=== PATIENT | male | born 1950 | race Two or more races ===

== ENCOUNTER 2019-02-07 23:03 | Inpatient (IN) | payer SELFPAY ==
[~2019-02-07] VITALS: Ht 165.1 cm; Wt 64.4 kg
[2019-02-07 23:05] VITALS: BP 106/73
--- NOTE | 2019-02-07 23:05 | NUR ---
ED Nurse Note: pt came manny hernandez 27. pt was found in the [place] by his friends who call 911. pt is alert but nonverbal unable to obtain pmh. pt is on 3 L nasal cannula. ermd at bedside. pt placed on monitor EKG done.
[2019-02-07] MEDS ORDERED: Sodium Chloride 1,900 ML IVLG ONE (23:30)
[2019-02-07] MEDS ORDERED: Acetaminophen 500mg (ES) tab ORAL ONE (23:30)
[2019-02-07 23:40] LABS: HEMATOCRIT 37.5 % (42.0-52.0); HEMOGLOBIN 12.1 G/DL (14.2-18.0); MEAN CORPUSCULAR VOLUME 97 FL (80-99); PLATELET COUNT 307 K/UL (150-450); RED BLOOD COUNT 3.87 M/UL (4.70-6.10); RED CELL DISTRIBUTION WIDTH 13.8 % (11.6-14.8)
[2019-02-07 23:45] LABS: INR 1.3 (0.9-1.1)
[2019-02-07 23:46] LABS: WHITE BLOOD COUNT 34.1 K/UL (4.8-10.8)
[2019-02-07 23:56] LABS: ALANINE AMINOTRANSFERASE 22 U/L (12-78); ALBUMIN 2.8 G/DL (3.4-5.0); ALBUMIN/GLOBULIN RATIO 0.8 (1.0-2.7); ALKALINE PHOSPHATASE 58 U/L (46-116); ANION GAP 25 mmol/L (5-15); ASPARTATE AMINO TRANSFERASE 22 U/L (15-37); BILIRUBIN,TOTAL 0.3 MG/DL (0.2-1.0); BLOOD UREA NITROGEN 33 mg/dL (7-18); CARBON DIOXIDE 10 MMOL/L (21-32); CHLORIDE 103 MMOL/L (98-107); CKMB 0.8 NG/ML (0.0-3.6); CREATINE KINASE 91 U/L (26-308); CREATININE 1.9 MG/DL (0.55-1.30); POTASSIUM 4.8 MMOL/L (3.5-5.1); SODIUM 138 MMOL/L (136-145)
[2019-02-08] VITALS (33 sets, daily range): BP systolic 102–199; BP diastolic 55–115
--- NOTE | 2019-02-08 00:02 | Emergency Room Report ---
History of Present Illness General Chief Complaint: Generalized Weakness Source: Patient, Friend, EMS Present Illness HPI This is a 69-year-old male who is Ivorian-speaking. He presents with chief complaint of generalized weakness. History is extremely limited in this patient because he is very confused. He was at a bus stop when a friend called 911. According to EMS, but knows him in someone who hang around that area. Supposedly, he is not homeless. He has no idea in his wallet. The chief complaint is generalized weakness. Patient denies any trauma. Does not say anything hurts. Denies any shortness of breath. Allergies: Coded Allergies: No Known Allergies (Unverified , 02/07/19) Patient History Past Medical History: see triage record, old chart reviewed, unable to obtain Past Surgical History: unable to obtain Pertinent Family History: unable to obtain Immunizations: other Reviewed Nursing Documentation: PMH: Agreed; PSxH: Agreed Nursing Documentation-PMH Past Medical History: Deferred Review of Systems Constitutional: Reports: weakness All Other Systems: limited - Secondary to patient's condition Physical Exam Vital Signs Date Time Temp Pulse Resp B/P (MAP) Pulse Ox O2 Delivery O2 Flow Rate FiO2 02/07/19 23:03 98.2 140 20 106/73 (84) 94 Nasal Cannula 2.0 Vitals with low-grade fever, tachycardia and hypoxia. Repeat temp is 100.3 Sp02 EP Interpretation: abnormal General Appearance: mild distress, cachetic Head: normocephalic, atraumatic Eyes: bilateral eye PERRL, bilateral eye EOMI ENT: hearing grossly normal, normal pharynx, dry mucus membranes Neck: full range of motion, supple, no meningismus Respiratory: chest non-tender, lungs clear, normal breath sounds Cardiovascular #1: regular rate, rhythm, no murmur, tachycardia Gastrointestinal: normal bowel sounds, non tender, no mass, no organomegaly, no bruit, non-distended Musculoskeletal: back normal, normal range of motion Neurologic: grossly normal, other - Confused Psychiatric: mood/affect normal Procedures Critical Care Time Critical Care Time Critical care is mandated in this patient who presented with DKA and possible sepsis. Patient require my urgent intervention to attenuate the risks of metabolic collapse which may lead to cardiovascular collapse and . Critical care time is 35 minutes excluding any reportable procedure. Critical care time included evaluation, multiple reevaluation, looking at old charts, interpreting laboratory and diagnostic data, discussing case with patient and family and consultants, and charting. Medical Decision Making Diagnostic Impression: Primary Impression: DKA (diabetic ketoacidoses) Qualified Codes: E13.10 - Other specified diabetes mellitus with ketoacidosis without coma Additional Impressions: Sepsis Qualified Codes: A41.9 - Sepsis, unspecified organism; R65.20 - Severe sepsis without septic shock; N17.9 - Acute kidney failure, unspecified Lactic acidosis ARF (acute renal failure) Qualified Codes: N17.9 - Acute kidney failure, unspecified Dehydration Sinus tachycardia ER Course Patient with generalized weakness but has tachycardia. He appeared to be very dehydrated. May have infectious cause. He has several phone numbers in his wallet. [employer] called those numbers, only 1 answered. The person that he does not know this patient. He only has a few dollars in his wallet. Otherwise no ID or insurance card. Patient presents with generalized weakness. Labs indicate DKA. He has a severe lactic acidosis. No evidence of any obvious infection. Lungs are clear. No abdominal pain. He is more awake and alert now. Able response. I suspect some underlying Alzheimer. He has no meningismus sign. I see no evidence of meningitis on clinical exam. After 3 L of fluids, he is more responsive. Does give an address so that he lives with his friends. No other family member in the [facility]. His family is improved. I started him on insulin drip. I also put him on D5 half-normal saline with potassium maintenance. His tachycardia has been persistent in the 130s. Blood pressures been stable. Thyroid function tested. Contacted Dr. Gee for admission to ICU. Patient anion gap closed. I will turn off the insulin drip and will continue with IV fluids. I will downgrade him to stepdown. EKG Diagnostic Results Rate: tachycardiac Rhythm: NSR ST Segments: other - NSST changes Rhythm Strip Diag. Results EP Interpretation: yes Rate: 130 Rhythm: NSR, no PVC's Chest X-Ray Diagnostic Results Chest X-Ray Diagnostic Results : Chest X-Ray Ordered: Yes # of Views/Limited/Complete: 1 View Indication: Shortness of Breath EP Interpretation: Yes Interpretation: no consolidation, no effusion, no pneumothorax, no acute cardiopulmonary disease, other - copd Impression: No acute disease Electronically Signed by: Sebastien Flaherty MD Last Vital Signs Date Time Temp Pulse Resp B/P (MAP) Pulse Ox O2 Delivery O2 Flow Rate FiO2 02/07/19 23:05 100.3 147 33 106/73 94 Nasal Cannula 3.0 Referrals: NOT CHOSEN IPA/,REFERRING (PCP) Sebastien Flaherty MD Feb 08, 2019 00:02
[2019-02-08 00:09] LABS: APPEARANCE,URINE CLEAR; BILIRUBIN, URINE NEGATIVE (NEGATIVE); GLUCOSE, URINE (UA) 1+ (NEGATIVE); KETONES,URINE 1+ (NEGATIVE); LEUKOCYTE ESTERASE ,URINE 1+ (NEGATIVE); NITRITE,URINE NEGATIVE (NEGATIVE); PH,URINE 5 (4.5-8.0); PROTEIN,URINE 3+ (NEGATIVE); UROBILINOGEN,URINE 1 MG/DL (0.0-1.0)
--- NOTE | 2019-02-08 00:17 | NUR ---
ED Nurse Note: pt went to ct
[2019-02-08 00:20] LABS: COLOR,URINE YELLOW
[2019-02-08] MEDS ORDERED: D5 1/2NS w/KCl 20mEq 1,000 ML IV SCH (00:30)
[2019-02-08] MEDS ORDERED: Cefepime HCl 1 GM in D5W 55 ML IVPB ONE (00:30)
[2019-02-08] MEDS ORDERED: Insulin Human Regular 100units/ml 3ml ONE (00:32)
--- NOTE | 2019-02-08 00:48 | Diagnostic Imaging Report ---
Indications: Altered mental status Technique: Spiral acquisitions obtained through the brain. Angled axial and coronal 5 x 5 mm slices were reconstructed. Total dose length product 1369.05 mGycm. CTDI vol(s) 70.38 mGy. Dose reduction achieved using automated exposure control Comparison: None. Findings: There is age-related enlargement of the ventricles and extra axial CSF spaces. There is periventricular deep white matter low-attenuation consistent with chronic microvascular ischemic change. There is a sizable old lacunar infarct in the left basal ganglia, as well as smaller lacunar infarcts in the basal ganglia bilaterally. No acute intracranial hemorrhage or edema. No mass effect nor midline shift. There is questionably an area of minimal scalp contusion in the right parieto-occipital scalp. The calvarium is intact. The included sinuses are clear. The mastoids are clear. The orbits are unremarkable Impression: Chronic and age-related changes Old bilateral basal ganglia infarcts Negative for acute intracranial bleed or mass effect This agrees with the preliminary interpretation provided overnight by [facility]. The CT scanner at [facility] is accredited by the [employer] and the scans are performed using protocols designed to limit radiation exposure to as low as reasonably achievable to attain images of sufficient resolution adequate for diagnostic evaluation.
--- NOTE | 2019-02-08 01:28 | NUR ---
ED Nurse Note: In consideration of the way the patient was found, [employer] was called, quenching machine operator [phone] states no missing person from the incident scene, or his address.
[2019-02-08 01:29] LABS: ANION GAP 18 mmol/L (5-15); BLOOD UREA NITROGEN 35 mg/dL (7-18); CALCIUM 8.4 MG/DL (8.5-10.1); CARBON DIOXIDE 14 MMOL/L (21-32); CHLORIDE 105 MMOL/L (98-107); CREATININE 1.7 MG/DL (0.55-1.30); POTASSIUM 4.8 MMOL/L (3.5-5.1); SODIUM 137 MMOL/L (136-145)
--- NOTE | 2019-02-08 01:30 | NUR ---
ED Nurse Note: pt shows increased signs of alertness aox3. pt is able to urinate on his own.
[2019-02-08] MEDS ORDERED: NKM (02:05)
--- NOTE | 2019-02-08 02:15 | NUR ---
ED Nurse Note: pt is in bed resting, tolerating medications well. latest bs is 238.
[2019-02-08] MEDS ORDERED: dilTIAZem HCl 25mg/5ml Inj IVP ONE (02:30)
--- NOTE | 2019-02-08 03:00 | NUR ---
ED Nurse Note: MEDHAT REPEAT LABS; SENT DOWN TO LAB.
[2019-02-08 03:15] LABS: HEMATOCRIT 23.6 % (42.0-52.0); HEMOGLOBIN 8.1 G/DL (14.2-18.0); MEAN CORPUSCULAR VOLUME 92 FL (80-99); PLATELET COUNT 166 K/UL (150-450); RED BLOOD COUNT 2.56 M/UL (4.70-6.10); RED CELL DISTRIBUTION WIDTH 13.1 % (11.6-14.8); WHITE BLOOD COUNT 21.5 K/UL (4.8-10.8)
[2019-02-08 03:23] LABS: ANION GAP 11 mmol/L (5-15); BLOOD UREA NITROGEN 30 mg/dL (7-18); CALCIUM 6.2 MG/DL (8.5-10.1); CARBON DIOXIDE 16 MMOL/L (21-32); CHLORIDE 113 MMOL/L (98-107); CREATININE 1.1 MG/DL (0.55-1.30); POTASSIUM 4.7 MMOL/L (3.5-5.1); SODIUM 140 MMOL/L (136-145)
--- NOTE | 2019-02-08 03:40 | NUR ---
ED Nurse Note: pt defected melena aprrox 3 g on bed. primary and crn cleaned pt, provided new gown, linens.
--- NOTE | 2019-02-08 03:41 | NUR ---
ED Nurse Note: per ermd stop insulin and d5 drip
[2019-02-08] MEDS ORDERED: Pantoprazole Inj IVP ONE (03:45)
--- NOTE | 2019-02-08 03:50 | NUR ---
ED Nurse Note: CONTACTED NURSING PARKING SUPERVISOR FOR RECTAL TUBE PER ERMD. PER NURSING PARKING SUPERVISOR "NO RECTAL TUBE IN HOUSE".
[2019-02-08] MEDS ORDERED: Octreotide Acetate 500 MCG in Sodium Chloride 499 ML IV SCH ×2 (04:00→12:00)
[2019-02-08] MEDS ORDERED: SandoSTATIN 100mcg Inj IVP ONE (04:00)
[2019-02-08] MEDS ORDERED: SandoSTATIN 50mcg Inj IVP ONE (04:00)
--- NOTE | 2019-02-08 04:40 | NUR ---
ED Nurse Note: INFORMED ERMD OF PT CONSISTENT TACHYCARDIDA. ERMD AWARE. AWAITING FUTHER ORDERS. WILL CONTINUE TO MONITOR PT.
--- NOTE | 2019-02-08 05:30 | NUR ---
ED Nurse Note: PT IN BED RESTING, TOLERATING BLOOD TRANSFUSION WELL. PT URINATED 20 ML IN URINAL. PT WAS CLEANED D/T MELENA, GOWN CHANGED, AND PLACED NEW LINENS
--- NOTE | 2019-02-08 06:05 | NUR ---
ED Nurse Note: REDNESS NOTED ON PT BUTTOCKS. TURNING AND REPOSITING PT INITIATED. PT TOLERATING WELL SHOWS NO SIGNS OF DISTRESS
[2019-02-08] MEDS ORDERED: Pantoprazole 80 MG in NS 250 ML IV ONE (06:15)
--- NOTE | 2019-02-08 07:10 | NUR ---
ED Nurse Note: NAILER OPERATOR AT BEDSIDE, PREPARING TO TRANSPORT PT FOR CT ABD. PT WAS CLEANED AND DRESSED PRIOR TO LEAVING. NEW GOWN, LINENS, CHUX PLACED.
--- NOTE | 2019-02-08 07:15 | Diagnostic Imaging Report ---
Indication: Abdominal pain and diarrhea for one week Technique: Spiral acquisitions obtained through the abdomen and pelvis. No oral contrast utilized, per emergency room physician request No IV contrast utilized, per referring physician request.. Multiplanar reconstructions were generated. Total dose length product 511.28 mGycm. CTDIvol(s) 9.91 mGy. Dose reduction achieved using automated exposure control Comparison: None Findings: There is equivocal slight wall thickening of the sigmoid colon and rectum, which is probably an artifact of under distention. There is colonic diverticulosis. No evidence of diverticulitis. The appendix is normal. Small bowel loops are diffusely gas filled, per limits of normal in caliber. No free or loculated intraperitoneal gas or fluid. There is a small sliding-type hiatal hernia noted. The remainder of the stomach and duodenum are unremarkable. There are tiny fat-containing inguinal hernias bilaterally. Lack of IV contrast limits assessment of the solid organs. The liver contains a granulomatous calcification in the right lobe and a 1 cm cyst in segment IVb. The gallbladder, bile ducts, pancreas, spleen, adrenals unremarkable. The left kidney demonstrates a 2 cm upper pole cyst on the left. The right kidney demonstrates a 1 cm interpolar region cyst. No renal or ureteral calculi or hydronephrosis. The bladder is mildly distended. There is mild ectasia of the bilateral ureters without evidence of downstream obstructive lesion. There is stranding of the bilateral perinephric fat. The prostate is enlarged, measures 5 cm transverse diameter. No pelvic mass or adenopathy. No retroperitoneal or mesenteric mass or adenopathy. There are bilateral posterior dependent atelectatic changes noted at the lung bases. The bones are unremarkable. Impression: Equivocal slight wall thickening of the sigmoid and rectum, probably an artifact of under distention but could indicate proctitis/colitis if real. Correlate with clinical findings No definite acute process otherwise Colonic diverticulosis. No evidence of diverticulitis Bladder distention Mild ureteral ectasia, likely related to the above Prostatomegaly Incidental findings as noted, including basilar pulmonary dependent atelectatic changes, renal and hepatic cysts, hepatic calcification, hiatal hernia, small bilateral inguinal hernias containing only fat This agrees with the preliminary interpretation provided overnight by [facility]. The CT scanner at [facility] is accredited by the [employer] and the scans are performed using protocols designed to limit radiation exposure to as low as reasonably achievable to attain images of sufficient resolution adequate for diagnostic evaluation.
--- NOTE | 2019-02-08 07:27 | NUR ---
ED Nurse Note: TELEPHONE REPORT GIVEN SUYAPA MORENO RN
--- NOTE | 2019-02-08 07:40 | NUR ---
ED Nurse Note: PT WAS SENT UP WITH BRADY RN, JOE, RN AND EN RN. PT IS AOX3. ON 3 L NASAL CANNULA PT DENIES PAIN AT THIS TIME. PT SHOWS NO ACUTE SIGNS OF DISTRESS. PT VSS. PT BED ON LOWEST POSITIONS X 2 SIDERAILS.
--- NOTE | 2019-02-08 07:55 | NUR ---
NURSE NOTES: Spoke with Dr. Conn, pt for EGD today.
--- NOTE | 2019-02-08 08:03 | NUR ---
NURSE NOTES: Received the patient from RAJI Murphy. Patient is awake, alert and orientedx4. On 3L O2 via NC. O2 sat 99%. Denies any pain or SOB. ST HR 110s-120s noted on the monitor. BP stable. Patient noted with bloody black loose stool. Patient able to use urinals, ashlee urine noted. Right AC 20G, left AC 18G and left forearm 18G intact, running sandostatin at 50ml/hr, protonix at 25ml/hr, PRBC transfusion completed. Insulin drip and IVF discontinued in ER per Katherine. All belongings checked. Bed in lowest position, locked, side rails upx2. Call light within reach. will continue to monitor.
--- NOTE | 2019-02-08 08:05 | NUR ---
NURSE NOTES: PRBC transfusion completed, patient received total of 4 PRBCs. No adverse reaction noted.
--- NOTE | 2019-02-08 08:05 | NUR ---
NURSE NOTES: Consent for EGD with biopsy obtained from the patient, filed in chart. Patient is awake, alert and oriented x4. Patient noted with large bloody, black stool. VSS, afebrile.
--- NOTE | 2019-02-08 08:10 | NUR ---
NURSE NOTES: Called Dr. Gee for admitting orders, awaiting for call back.
[2019-02-08] MEDS ORDERED: Pantoprazole Inj IVP SCH (09:00)
[2019-02-08 09:09] LABS: HEMATOCRIT 47.3 % (42.0-52.0); MEAN CORPUSCULAR VOLUME 90 FL (80-99); PLATELET COUNT 166 K/UL (150-450); RED BLOOD COUNT 5.27 M/UL (4.70-6.10); RED CELL DISTRIBUTION WIDTH 12.6 % (11.6-14.8); WHITE BLOOD COUNT 20.5 K/UL (4.8-10.8)
--- NOTE | 2019-02-08 09:13 | NUR ---
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
[2019-02-08 09:14] LABS: ANION GAP 8 mmol/L (5-15); BLOOD UREA NITROGEN 23 mg/dL (7-18); CALCIUM 6.8 MG/DL (8.5-10.1); CARBON DIOXIDE 20 MMOL/L (21-32); CHLORIDE 110 MMOL/L (98-107); CREATININE 0.9 MG/DL (0.55-1.30); POTASSIUM 4.7 MMOL/L (3.5-5.1); SODIUM 138 MMOL/L (136-145)
[2019-02-08 09:16] LABS: CHOLESTEROL 86 MG/DL (< 200); HDL CHOLESTEROL 35 MG/DL (40-60); TRIGLYCERIDES 65 MG/DL (30-150)
[2019-02-08 09:27] LABS: ALANINE AMINOTRANSFERASE 95 U/L (12-78); ALBUMIN 2.8 G/DL (3.4-5.0); ALBUMIN/GLOBULIN RATIO 0.9 (1.0-2.7); ALKALINE PHOSPHATASE 43 U/L (46-116); ASPARTATE AMINO TRANSFERASE 376 U/L (15-37); BILIRUBIN,DIRECT 0.3 MG/DL (0.0-0.3); BILIRUBIN,TOTAL 1.6 MG/DL (0.2-1.0); PHOSPHORUS 3.5 MG/DL (2.5-4.9)
[2019-02-08 09:39] LABS: FERRITIN 423 NG/ML (8-388)
--- NOTE | 2019-02-08 09:42 | GI Initial Consult Note ---
History of Present Illness General Date patient seen: Feb 08, 2019 Time patient seen: 09:34 Reason for Hospitalization: Generalized Weakness Referring physician: JANET LOFTON Reason for Consultation: GI BLEED Present Illness HPI This is a 69-year-old male who is Turkish-speaking. He presents with chief complaint of generalized weakness. History is extremely limited in this patient because he is very confused. He was at a bus stop when a friend called 911. According to EMS, but knows him in someone who hang around that area. Supposedly, he is not homeless. He has no idea in his wallet. The chief complaint is generalized weakness. Patient denies any trauma. Does not say anything hurts. Denies any shortness of breath. GI consulted for GI bleed. Pat seen, awake and alert NAD has active GI bleed noted with melena and hematochezia. No hematemesis or coffee grounds noted. The patient was admitted for DKA, noted with melanotic stool with drop in Hgb. He presents today with AST 376, AST 75. In addition, the patient was noted to have CT imaging which showed some concentric thickening of the sigmoid colon as well as rectum. This may be the source for the patient's metabolic acidosis and bleeding. Unknown history of endoscopy or colonoscopy. Home Meds Reported Medications No Known Medications* (NKM - No Known Medications*) ., 0 ., 0 Refills 02/08/19 Med list reviewed/reconciled: Yes Allergies: Coded Allergies: No Known Allergies (Unverified , 02/07/19) Patient History Limited by: language barrier, medical condition History Provided By: Medical Record PMH Narrative Past Medical History: see triage record, old chart reviewed, unable to obtain Past Surgical History: unable to obtain Pertinent Family History: unable to obtain Immunizations: other Reviewed Nursing Documentation: PMH: Agreed; PSxH: Agreed Nursing Documentation-PMH Past Medical History: Deferred Social History: Reports: alcohol use Review of Systems All Other Systems: negative except mentioned in HPI Physical Exam Vital Signs Date Time Temp Pulse Resp B/P (MAP) Pulse Ox O2 Delivery O2 Flow Rate FiO2 02/07/19 23:03 98.2 140 20 106/73 (84) 94 Nasal Cannula 2.0 Sp02 EP Interpretation: reviewed, normal Labs Laboratory Tests Test 02/07/19 23:17 02/07/19 23:43 02/08/19 00:03 02/08/19 00:43 White Blood Count 34.1 K/UL (4.8-10.8) *H Red Blood Count 3.87 M/UL (4.70-6.10) L Hemoglobin 12.1 G/DL (14.2-18.0) L Hematocrit 37.5 % (42.0-52.0) L Mean Corpuscular Volume 97 FL (80-99) Mean Corpuscular Hemoglobin 31.2 PG (27.0-31.0) H Mean Corpuscular Hemoglobin Concent 32.2 G/DL (32.0-36.0) Red Cell Distribution Width 13.8 % (11.6-14.8) Platelet Count 307 K/UL (150-450) Mean Platelet Volume 5.2 FL (6.5-10.1) L Neutrophils (%) (Auto) % (45.0-75.0) Lymphocytes (%) (Auto) % (20.0-45.0) Monocytes (%) (Auto) % (1.0-10.0) Eosinophils (%) (Auto) % (0.0-3.0) Basophils (%) (Auto) % (0.0-2.0) Differential Total Cells Counted 100 Neutrophils % (Manual) 52 % (45-75) Lymphocytes % (Manual) 41 % (20-45) Monocytes % (Manual) 3 % (1-10) Eosinophils % (Manual) 0 % (0-3) Basophils % (Manual) 0 % (0-2) Band Neutrophils 4 % (0-8) Platelet Estimate Adequate Platelet Morphology Normal Prothrombin Time 14.0 SEC (9.30-11.50) H Prothromb Time International Ratio 1.3 (0.9-1.1) H Activated Partial Thromboplast Time 32 SEC (23-33) Sodium Level 138 MMOL/L (136-145) Potassium Level 4.8 MMOL/L (3.5-5.1) Chloride Level 103 MMOL/L (98-107) Carbon Dioxide Level 10 MMOL/L (21-32) L Anion Gap 25 mmol/L (5-15) H Blood Urea Nitrogen 33 mg/dL (7-18) H Creatinine 1.9 MG/DL (0.55-1.30) H Estimat Glomerular Filtration Rate mL/min (>60) Glucose Level 405 MG/DL (74-106) H Lactic Acid Level 21.40 mmol/L (0.4-2.0) H 14.20 mmol/L (0.66-2.22) H Calcium Level 10.0 MG/DL (8.5-10.1) Total Bilirubin 0.3 MG/DL (0.2-1.0) Aspartate Amino Transf (AST/SGOT) 22 U/L (15-37) Alanine Aminotransferase (ALT/SGPT) 22 U/L (12-78) Alkaline Phosphatase 58 U/L (46-116) Total Creatine Kinase 91 U/L (26-308) Creatine Kinase MB 0.8 NG/ML (0.0-3.6) Creatine Kinase MB Relative Index 0.8 Troponin I 0.000 ng/mL (0.000-0.056) Total Protein 6.2 G/DL (6.4-8.2) L Albumin 2.8 G/DL (3.4-5.0) L Globulin 3.4 g/dL Albumin/Globulin Ratio 0.8 (1.0-2.7) L Urine Color Yellow Urine Appearance Clear Urine pH 5 (4.5-8.0) Urine Specific [place] 1.025 (1.005-1.035) Urine Protein 3+ (NEGATIVE) H Urine Glucose (UA) 1+ (NEGATIVE) H Urine Ketones 1+ (NEGATIVE) H Urine Blood 3+ (NEGATIVE) H Urine Nitrite Negative (NEGATIVE) Urine Bilirubin Negative (NEGATIVE) Urine Urobilinogen 1 MG/DL (0.0-1.0) H Urine Leukocyte Esterase 1+ (NEGATIVE) H Urine RBC 2-4 /HPF (0 - 0) H Urine WBC 2-4 /HPF (0 - 0) Urine Squamous Epithelial Cells Few /LPF (NONE/OCC) Urine Bacteria Few /HPF (NONE) Arterial Blood pH 7.167 (7.350-7.450) Arterial Blood Partial Pressure CO2 22.1 mmHg (35.0-45.0) *L Arterial Blood Partial Pressure O2 148.5 mmHg (75.0-100.0) H Arterial Blood HCO3 7.8 mmol/L (22.0-26.0) *L Arterial Blood Oxygen Saturation 97.4 % (95-100) Arterial Blood Base Excess -19.0 (-2-2) *L Uvaldo Test Positive Test 02/08/19 01:10 02/08/19 03:00 02/08/19 05:31 02/08/19 08:40 Sodium Level 137 MMOL/L (136-145) 140 MMOL/L (136-145) 138 MMOL/L (136-145) Potassium Level 4.8 MMOL/L (3.5-5.1) 4.7 MMOL/L (3.5-5.1) 4.7 MMOL/L (3.5-5.1) Chloride Level 105 MMOL/L (98-107) 113 MMOL/L (98-107) H 110 MMOL/L (98-107) H Carbon Dioxide Level 14 MMOL/L (21-32) L 16 MMOL/L (21-32) L 20 MMOL/L (21-32) L Anion Gap 18 mmol/L (5-15) H 11 mmol/L (5-15) 8 mmol/L (5-15) Blood Urea Nitrogen 35 mg/dL (7-18) H 30 mg/dL (7-18) H 23 mg/dL (7-18) H Creatinine 1.7 MG/DL (0.55-1.30) H 1.1 MG/DL (0.55-1.30) 0.9 MG/DL (0.55-1.30) Estimat Glomerular Filtration Rate mL/min (>60) mL/min (>60) mL/min (>60) Glucose Level 329 MG/DL (74-106) H 228 MG/DL (74-106) #H 132 MG/DL (74-106) H Calcium Level 8.4 MG/DL (8.5-10.1) L 6.2 MG/DL (8.5-10.1) #L 6.8 MG/DL (8.5-10.1) L Thyroid Stimulating Hormone (TSH) 1.847 uiU/mL (0.358-3.740) Free Thyroxine 1.17 NG/DL (0.76-1.46) White Blood Count 21.5 K/UL (4.8-10.8) H 20.5 K/UL (4.8-10.8) H Red Blood Count 2.56 M/UL (4.70-6.10) L 5.27 M/UL (4.70-6.10) Hemoglobin 8.1 G/DL (14.2-18.0) #L 16.0 G/DL (14.2-18.0) # Hematocrit 23.6 % (42.0-52.0) #L 47.3 % (42.0-52.0) # Mean Corpuscular Volume 92 FL (80-99) 90 FL (80-99) Mean Corpuscular Hemoglobin 31.6 PG (27.0-31.0) H 30.5 PG (27.0-31.0) Mean Corpuscular Hemoglobin Concent 34.3 G/DL (32.0-36.0) 33.9 G/DL (32.0-36.0) Red Cell Distribution Width 13.1 % (11.6-14.8) 12.6 % (11.6-14.8) Platelet Count 166 K/UL (150-450) 166 K/UL (150-450) Mean Platelet Volume 5.4 FL (6.5-10.1) L 5.6 FL (6.5-10.1) L Neutrophils (%) (Auto) % (45.0-75.0) % (45.0-75.0) Lymphocytes (%) (Auto) % (20.0-45.0) % (20.0-45.0) Monocytes (%) (Auto) % (1.0-10.0) % (1.0-10.0) Eosinophils (%) (Auto) % (0.0-3.0) % (0.0-3.0) Basophils (%) (Auto) % (0.0-2.0) % (0.0-2.0) Arterial Blood pH 7.330 (7.350-7.450) Arterial Blood Partial Pressure CO2 31.3 mmHg (35.0-45.0) L Arterial Blood Partial Pressure O2 141.7 mmHg (75.0-100.0) H Arterial Blood HCO3 16.1 mmol/L (22.0-26.0) *L Arterial Blood Oxygen Saturation 98.1 % (95-100) Arterial Blood Base Excess -8.7 (-2-2) L Uvaldo Test Positive Differential Total Cells Counted 100 Neutrophils % (Manual) 89 % (45-75) H Lymphocytes % (Manual) 8 % (20-45) L Monocytes % (Manual) 3 % (1-10) Eosinophils % (Manual) 0 % (0-3) Basophils % (Manual) 0 % (0-2) Band Neutrophils 0 % (0-8) Platelet Estimate Adequate Platelet Morphology Normal Red Blood Cell Morphology Normal Hemoglobin A1c 6.7 % (4.3-6.0) H Lactic Acid Level Pending Uric Acid 5.3 MG/DL (2.6-7.2) Phosphorus Level 3.5 MG/DL (2.5-4.9) Magnesium Level 2.4 MG/DL (1.8-2.4) Iron Level Pending Unsaturated Iron Binding Pending Ferritin Pending Total Bilirubin 1.6 MG/DL (0.2-1.0) H Direct Bilirubin 0.3 MG/DL (0.0-0.3) Aspartate Amino Transf (AST/SGOT) 376 U/L (15-37) H Alanine Aminotransferase (ALT/SGPT) 95 U/L (12-78) H Alkaline Phosphatase 43 U/L (46-116) L Total Protein 5.9 G/DL (6.4-8.2) L Albumin 2.8 G/DL (3.4-5.0) L Globulin 3.1 g/dL Albumin/Globulin Ratio 0.9 (1.0-2.7) L Triglycerides Level 65 MG/DL (30-150) Cholesterol Level 86 MG/DL (< 200) LDL Cholesterol 40 mg/dL (<100) HDL Cholesterol 35 MG/DL (40-60) L Cholesterol/HDL Ratio 2.5 (3.3-4.4) L Lipase 67 U/L (73-393) L Vitamin B12 Level Pending Folate Pending Acetone Level Pending General Appearance: well appearing, no apparent distress, alert Head: normocephalic EENT: PERRL/EOMI, normal ENT inspection Neck: supple Respiratory: normal breath sounds, no respiratory distress Cardiovascular: normal rate Gastrointestinal: normal inspection, non tender, soft, normal bowel sounds, non -distended, other - active bleed, noted with melena and hematochezia. Rectal: deferred Genitourinary: deferred Musculoskeletal: normal inspection, back normal Neurologic: alert, responsive Skin: normal inspection, normal color, no rash, warm/dry, palpation normal, well hydrated Lymphatic: normal inspection, no adenopathy Current Medications Current Medications Medications (Trade) Dose Ordered Sig/Manish Route PRN Reason Start Time Stop Time Status Last Admin Dose Admin Acetaminophen (Tylenol) 650 mg Q6H PRN ORAL Mild Pain/Temp > 100.5 02/08/19 09:00 03/10/19 08:59 Dextrose (Dextrose 50%) 25 ml Q30M PRN IV Hypoglycemia 02/08/19 09:00 03/10/19 08:59 Dextrose (Dextrose 50%) 50 ml Q30M PRN IV Hypoglycemia 02/08/19 09:00 03/10/19 08:59 Insulin Aspart (NovoLOG) Q6HR SUBQ 02/08/19 12:00 03/10/19 11:59 Octreotide Acetate 500 mcg/ Sodium Chloride 500 ml @ 50 mls/hr Q10H IV 02/08/19 09:30 03/10/19 09:29 UNV Pantoprazole 80 mg/Sodium Chloride 250 ml @ 25 mls/hr Q10H IV 02/08/19 09:30 03/10/19 09:29 UNV Piperacillin Sod/ Tazobactam Sod 3.375 gm/Sodium Chloride 110 ml @ 27.5 mls/hr EVERY 8 HOURS IVPB 02/08/19 14:00 02/13/19 13:59 UNV Sodium Chloride 1,000 ml @ 100 mls/hr Q10H IV 02/08/19 09:30 03/10/19 09:29 GI: Plan Problems: (1) Esophageal varices (2) Anemia (3) DKA (diabetic ketoacidoses) (4) GIB (gastrointestinal bleeding) (5) Dehydration Plan Patient scheduled for EGD tomorrow, will need colonoscopy eventually for colonic wall thickening. - maintain NPO + IVFs - PPI gtt + octreotide prn transfusions will follow with additional recommendations post procedure Discussed with Dr. Conn. Thank you for this patient referral, we will follow. The patient was seen and examined at bedside and all new and available data was reviewed in the patients chart. I agree with the above findings, impression and plan. (Patient seen earlier today. Signature stamp does not reflect patient encounter time.). - MD Krystina aMtos,[facility] BEVELING AND EDGING MACHINE OPERATOR Feb 08, 2019 09:42
[2019-02-08] MEDS ORDERED: Pantoprazole 80 MG in NS 250 ML IV SCH (09:45)
[2019-02-08 09:53] LABS: % IRON SATURATION 41 % (15-50); IRON 79 ug/dL (50-175); TOTAL IRON BINDING CAPACITY 194 ug/dL (250-450)
--- NOTE | 2019-02-08 10:26 | Diagnostic Imaging Report ---
Indication: Shortness of breath for 2 days Technique: One view of the chest Comparison: none Findings: Lungs and pleural spaces are clear. Heart size is normal Impression: No acute process
--- NOTE | 2019-02-08 10:27 | Consultation ---
Consult Note Consult Note asked to eval at the request of Dr Gomez for fluid management and electrolyte imbalance This is a 69-year-old male who is Persian-speaking. He presents with chief complaint of generalized weakness. History is extremely limited in this patient because he is very confused. He was at a bus stop when a friend called 911. According to EMS, but knows him in someone who hang around that area. Supposedly, he is not homeless. He has no idea in his wallet. The chief complaint is generalized weakness. Patient denies any trauma. Does not say anything hurts. Denies any shortness of breath. No Known Allergies (Unverified , 02/07/19) examined data reviewed . Assessment/Plan Acute renal failure Dehydration Hyperglycemia high Lactate level esophageal bleed GI bleed Hydrate per GI Monitor lytes and renal parameters Arturo Cruz MD Feb 08, 2019 10:27
[2019-02-08] MEDS ORDERED: NS IV ONE (10:30)
[2019-02-08] MEDS ORDERED: CALCIUM CHLORIDE IV ONE (10:30)
--- NOTE | 2019-02-08 10:59 | Pulmonolgy Critical Care Note ---
Critical Care - Asmt/Plan Assessment/Plan: Pulmonary CCM Consultation HPI Patient is a 69-year-old male admitted with generalized weakness, altered mental status. He was at a bus stop when a friend called 911. Noted to have hemodynamically significant Gastrointestinal Bleed in the ED, Evidence of Sigmoid/Rectal thickening on CT abdomen, Urinary Tract Infection. Had significantly elevated Lactic Acid and Glucose Level (minimal Ketones in urine) , abnormal renal function. No history of trauma noted. No complaint of pain or shortness of breath. Allergies: No Known Allergies Past Medical History: Diabetes All Other Systems: limited - Secondary to patient's condition Physical Exam Vital Signs Noted Date Time Temp Pulse Resp B/P (MAP) Pulse Ox O2 Delivery O2 Flow Rate FiO2 02/07/19 23:03 98.2 140 20 106/73 (84) 94 Nasal Cannula 2.0 General Appearance: mild distress, chronically ill appearing Head: normocephalic, atraumatic Eyes: bilateral eye PERRL, bilateral eye EOMI ENT: hnormal pharynx, dry mucus membranes Neck: no LN Respiratory: chest non-tender, lungs clear, normal breath sounds Cardiovascular: regular rate, rhythm, no murmur, HS1, HS2 normal Gastrointestinal: normal bowel sounds, non tender, no mass, no organomegaly, no bruit, non-distended Musculoskeletal: back normal, normal range of motion Neurologic: grossly normal, other - Confused, no focal signs, no seizures Impression: Gastrointestinal bleed Anemia Possible Mesenteric Ischemia given degree of acidosis, possible Colitis given CT findings Sepsis Urinary Tract Infection Hypovolemia Acute kidney failure Lactic acidosis Diabetes ARF (acute renal failure) Plan IVF, bolus PRN Transfuse PRN - s/p 4 units PRBC ISS IV Zosyn Monitor labs PPX LE dupplex r/o DVT Repeat ABG BiPAP PRN EKG: Rhythm: NSR, no PVC's Chest X-Ray: no consolidation, no effusion, no pneumothorax, no acute cardiopulmonary disease, No acute disease CT Abdomen: Patient was noted to have concentric thickening Sigmoid colon and rectum Critical Care - Objective Last 24 Hour Vital Signs Date Time Temp Pulse Resp B/P (MAP) Pulse Ox O2 Delivery O2 Flow Rate FiO2 02/08/19 10:00 112 29 160/84 (109) 100 02/08/19 09:00 119 20 119/77 (91) 100 02/08/19 08:00 98.1 120 25 111/80 (90) 100 02/08/19 08:00 Room Air 02/08/19 07:40 97.8 121 24 168/101 100 Nasal Cannula 3.0 02/08/19 07:40 97.8 121 24 168/101 100 Nasal Cannula 3.0 02/08/19 07:00 97.6 119 26 02/08/19 06:55 97.6 118 25 02/08/19 06:45 98.0 135 27 02/08/19 06:40 98.3 132 24 02/08/19 06:35 98.3 127 33 02/08/19 06:30 97.8 138 29 02/08/19 06:05 97.9 123 26 02/08/19 06:00 98.0 110 22 144/110 (121) 97 02/08/19 06:00 98.4 126 24 02/08/19 05:55 97.6 128 30 02/08/19 05:54 Nasal Cannula 3.0 02/08/19 05:34 Nasal Cannula 3.0 02/08/19 05:20 97.5 134 30 162/85 96 Simple Mask 3.0 02/08/19 05:05 97.8 140 28 144/86 100 Nasal Cannula 3.0 02/08/19 05:05 97.8 140 28 02/08/19 05:00 97.6 139 24 143/72 95 Nasal Cannula 3.0 02/08/19 05:00 97.6 139 24 02/08/19 04:55 97.3 146 28 147/76 100 Nasal Cannula 3.0 02/08/19 04:55 97.3 146 28 02/08/19 04:50 97.3 141 30 02/08/19 04:50 97.3 141 30 150/113 89 Nasal Cannula 3.0 02/08/19 04:00 98.6 137 20 137/78 100 Nasal Cannula 3.0 02/08/19 04:00 3.0 02/08/19 03:01 97.9 153 30 126/55 100 Nasal Cannula 3.0 02/08/19 02:25 145 144/69 02/08/19 01:53 97.4 145 28 124/67 100 Nasal Cannula 3.0 02/08/19 01:14 96.9 155 30 102/56 100 Nasal Cannula 3.0 02/08/19 00:36 96.9 02/07/19 23:05 100.3 147 33 106/73 94 Nasal Cannula 3.0 02/07/19 23:05 147 33 Nasal Cannula 3.0 02/07/19 23:03 98.2 140 20 106/73 (84) 94 Nasal Cannula 2.0 Micro: Microbiology Date/Time Source Procedure Growth Status 02/08/19 00:56 Rectum Received Accucheck: 261 Critical Care - Subjective I&O: Intake and Output 02/07/19 02/08/19 19:00 07:00 Intake Total 08367 ml Output Total 0 ml Balance 91378 ml Intake IV Total 5905 ml Blood Product 2000 ml Other 5000 ml Output Urine Total 0 ml # Voids 2 # Bowel Movements 12 Prince Gallagher MD Feb 08, 2019 10:59
--- NOTE | 2019-02-08 10:59 | Anethesia Preoperative Eval ---
Anesthesia Pre-op PMH/ROS General Date of Evaluation: Feb 08, 2019 Anesthesiologist: Nate ASA Score: ASA 4 Mallampati Score Class I : Soft palate, uvula, fauces, pillars visible Class II: Soft palate, uvula, fauces visible Class III: Soft palate, base of uvula visible Class IV: Only hard plate visible Mallampati Classification: Class III Surgeon: Swapna Diagnosis: GI bleed Surgical Procedure: EGD Anesthesia History: none Family History: no anesthesia problems Allergies: Coded Allergies: No Known Allergies (Unverified , 02/07/19) Medications: see eMAR Patient NPO?: Yes NPO Date: Feb 07, 2019 Past Medical History Cardiovascular: Denies: HTN, CAD, SD, valve dz, arrhythmia, other Pulmonary: Denies: asthma, COPD, ABDIRASHID, other Gastrointestinal/Genitourinary: Reports: other - melanotic stools; Denies: GERD, CRI, ESRD Neurologic/Psychiatric: Denies: dementia, CVA, depression/anxiety, TIA, other Endocrine: Reports: DM, other - admitted in DKA; Denies: hypothyroidism, steroids HEENT: Denies: cataract (L), cataract (R), glaucoma, KALTAG (L), KALTAG (R), other Hematology/Immune: Reports: anemia, other - sepsis; Denies: DVT, bleeding disorder Musculoskeletal/Integumentary: Denies: OA, RA, DJD, DDD, edema, other PSxH Narrative: unable to assess Anesthesia Pre-op Phys. Exam Physician Exam Last Vital Signs Date Time Temp Pulse Resp B/P (MAP) Pulse Ox O2 Delivery O2 Flow Rate FiO2 02/08/19 10:00 112 29 160/84 (109) 100 02/08/19 08:00 98.1 02/08/19 08:00 Room Air 02/08/19 07:40 3.0 Constitutional: NAD Cardiovascular: other - tachy Respiratory: CTA Airway Exam Mallampati Score: Class III MO: limited ROM: limited Anesthesia Pre-op A/P Labs Hematology Test 02/07/19 23:17 02/08/19 03:00 02/08/19 08:40 White Blood Count 34.1 K/UL (4.8-10.8) *H 21.5 K/UL (4.8-10.8) H 20.5 K/UL (4.8-10.8) H Red Blood Count 3.87 M/UL (4.70-6.10) L 2.56 M/UL (4.70-6.10) L 5.27 M/UL (4.70-6.10) Hemoglobin 12.1 G/DL (14.2-18.0) L 8.1 G/DL (14.2-18.0) #L 16.0 G/DL (14.2-18.0) # Hematocrit 37.5 % (42.0-52.0) L 23.6 % (42.0-52.0) #L 47.3 % (42.0-52.0) # Mean Corpuscular Volume 97 FL (80-99) 92 FL (80-99) 90 FL (80-99) Mean Corpuscular Hemoglobin 31.2 PG (27.0-31.0) H 31.6 PG (27.0-31.0) H 30.5 PG (27.0-31.0) Mean Corpuscular Hemoglobin Concent 32.2 G/DL (32.0-36.0) 34.3 G/DL (32.0-36.0) 33.9 G/DL (32.0-36.0) Red Cell Distribution Width 13.8 % (11.6-14.8) 13.1 % (11.6-14.8) 12.6 % (11.6-14.8) Platelet Count 307 K/UL (150-450) 166 K/UL (150-450) 166 K/UL (150-450) Mean Platelet Volume 5.2 FL (6.5-10.1) L 5.4 FL (6.5-10.1) L 5.6 FL (6.5-10.1) L Neutrophils (%) (Auto) % (45.0-75.0) % (45.0-75.0) % (45.0-75.0) Lymphocytes (%) (Auto) % (20.0-45.0) % (20.0-45.0) % (20.0-45.0) Monocytes (%) (Auto) % (1.0-10.0) % (1.0-10.0) % (1.0-10.0) Eosinophils (%) (Auto) % (0.0-3.0) % (0.0-3.0) % (0.0-3.0) Basophils (%) (Auto) % (0.0-2.0) % (0.0-2.0) % (0.0-2.0) Differential Total Cells Counted 100 100 Neutrophils % (Manual) 52 % (45-75) 89 % (45-75) H Lymphocytes % (Manual) 41 % (20-45) 8 % (20-45) L Monocytes % (Manual) 3 % (1-10) 3 % (1-10) Eosinophils % (Manual) 0 % (0-3) 0 % (0-3) Basophils % (Manual) 0 % (0-2) 0 % (0-2) Band Neutrophils 4 % (0-8) 0 % (0-8) Platelet Estimate Adequate Adequate Platelet Morphology Normal Normal Red Blood Cell Morphology Normal Coagulation Test 02/07/19 23:17 Prothrombin Time 14.0 SEC (9.30-11.50) H Prothromb Time International Ratio 1.3 (0.9-1.1) H Activated Partial Thromboplast Time 32 SEC (23-33) Chemistry Test 02/07/19 23:17 02/08/19 00:43 02/08/19 01:10 02/08/19 03:00 Sodium Level 138 MMOL/L (136-145) 137 MMOL/L (136-145) 140 MMOL/L (136-145) Potassium Level 4.8 MMOL/L (3.5-5.1) 4.8 MMOL/L (3.5-5.1) 4.7 MMOL/L (3.5-5.1) Chloride Level 103 MMOL/L (98-107) 105 MMOL/L (98-107) 113 MMOL/L (98-107) H Carbon Dioxide Level 10 MMOL/L (21-32) L 14 MMOL/L (21-32) L 16 MMOL/L (21-32) L Anion Gap 25 mmol/L (5-15) H 18 mmol/L (5-15) H 11 mmol/L (5-15) Blood Urea Nitrogen 33 mg/dL (7-18) H 35 mg/dL (7-18) H 30 mg/dL (7-18) H Creatinine 1.9 MG/DL (0.55-1.30) H 1.7 MG/DL (0.55-1.30) H 1.1 MG/DL (0.55-1.30) Estimat Glomerular Filtration Rate mL/min (>60) mL/min (>60) mL/min (>60) Glucose Level 405 MG/DL (74-106) H 329 MG/DL (74-106) H 228 MG/DL (74-106) #H Lactic Acid Level 21.40 mmol/L (0.4-2.0) H 14.20 mmol/L (0.66-2.22) H Calcium Level 10.0 MG/DL (8.5-10.1) 8.4 MG/DL (8.5-10.1) L 6.2 MG/DL (8.5-10.1) #L Total Bilirubin 0.3 MG/DL (0.2-1.0) Aspartate Amino Transf (AST/SGOT) 22 U/L (15-37) Alanine Aminotransferase (ALT/SGPT) 22 U/L (12-78) Alkaline Phosphatase 58 U/L (46-116) Total Creatine Kinase 91 U/L (26-308) Creatine Kinase MB 0.8 NG/ML (0.0-3.6) Creatine Kinase MB Relative Index 0.8 Troponin I 0.000 ng/mL (0.000-0.056) Total Protein 6.2 G/DL (6.4-8.2) L Albumin 2.8 G/DL (3.4-5.0) L Globulin 3.4 g/dL Albumin/Globulin Ratio 0.8 (1.0-2.7) L Thyroid Stimulating Hormone (TSH) 1.847 uiU/mL (0.358-3.740) Free Thyroxine 1.17 NG/DL (0.76-1.46) Test 02/08/19 08:40 Sodium Level 138 MMOL/L (136-145) Potassium Level 4.7 MMOL/L (3.5-5.1) Chloride Level 110 MMOL/L (98-107) H Carbon Dioxide Level 20 MMOL/L (21-32) L Anion Gap 8 mmol/L (5-15) Blood Urea Nitrogen 23 mg/dL (7-18) H Creatinine 0.9 MG/DL (0.55-1.30) Estimat Glomerular Filtration Rate mL/min (>60) Glucose Level 132 MG/DL (74-106) H Hemoglobin A1c 6.7 % (4.3-6.0) H Lactic Acid Level 3.00 mmol/L (0.4-2.0) H Uric Acid 5.3 MG/DL (2.6-7.2) Calcium Level 6.8 MG/DL (8.5-10.1) L Phosphorus Level 3.5 MG/DL (2.5-4.9) Magnesium Level 2.4 MG/DL (1.8-2.4) Iron Level 79 ug/dL (50-175) Total Iron Binding Capacity 194 ug/dL (250-450) L Percent Iron Saturation 41 % (15-50) Unsaturated Iron Binding 115 ug/dL (112-346) Ferritin 423 NG/ML (8-388) H Total Bilirubin 1.6 MG/DL (0.2-1.0) H Direct Bilirubin 0.3 MG/DL (0.0-0.3) Aspartate Amino Transf (AST/SGOT) 376 U/L (15-37) H Alanine Aminotransferase (ALT/SGPT) 95 U/L (12-78) H Alkaline Phosphatase 43 U/L (46-116) L Total Protein 5.9 G/DL (6.4-8.2) L Albumin 2.8 G/DL (3.4-5.0) L Globulin 3.1 g/dL Albumin/Globulin Ratio 0.9 (1.0-2.7) L Triglycerides Level 65 MG/DL (30-150) Cholesterol Level 86 MG/DL (< 200) LDL Cholesterol 40 mg/dL (<100) HDL Cholesterol 35 MG/DL (40-60) L Cholesterol/HDL Ratio 2.5 (3.3-4.4) L Lipase 67 U/L (73-393) L Vitamin B12 Level 671 PG/ML (193-986) Folate 11.9 NG/ML (8.6-58.9) Studies Pre-op Studies: EKG - st Risk Assessment & Plan Assessment: ASA IV Plan: MAC Status Change Before Surgery: No Pre-Antibiotics Drug: N/A Jennifer Hull MD Feb 08, 2019 10:59
--- NOTE | 2019-02-08 11:40 | NUR ---
NURSE NOTES: Left a message to Dr. Cruz regarding high BP, 199/85. MD to put orders.
[2019-02-08] MEDS ORDERED: LORazepam Inj 2mg/ml 1ml IV PRN (12:00)
[2019-02-08] MEDS ORDERED: Succinylcholine 20mg/ml 10ml vial ONE (12:00)
[2019-02-08] MEDS ORDERED: LR 1000ml ONE (12:00)
[2019-02-08] MEDS ORDERED: Lidocaine 1% MPF 10mg/ml 5ml ONE (12:00)
[2019-02-08] MEDS: NovoLOG Insulin Flexpen SUBQ SCH ×3 (12:00→23:49)
[2019-02-08] MEDS ORDERED: DiphenhydrAMINE 50mg/ml Inj IVP PRN (12:00)
[2019-02-08] MEDS ORDERED: Propofol 200mg/20ml IV ONE (12:00)
--- NOTE | 2019-02-08 12:00 | NUR ---
NURSE NOTES: Patient off the unit to GI lab for EGD, accompanied by RN. Patient awake, aox4. on room air. no acute distress noted.
--- NOTE | 2019-02-08 12:05 | NUR ---
NURSE NOTES: Spoke with anesthesiologist, Dr. June, and notified high BP. Okay to bring the patient down for EGD per MD. Addendum: 02/08/19 at 1709 by SHAYE MURILLO RN correct time: 1150
--- NOTE | 2019-02-08 12:12 | Pre-Procedure Note/Attestation ---
Pre-Procedure Note/Attestation Complete Prior to Procedure Planned Procedure: not applicable Procedure Narrative: egd Indications for Procedure Pre-Operative Diagnosis: gib Attestation I attest that I discussed the nature of the procedure; its benefits; risks and complications; and alternatives (and the risks and benefits of such alternatives ), prior to the procedure, with the patient (or the patient's legal healthcare representative). I attest that, if there was a reasonable possibility of needing a blood transfusion, the patient (or the patient's legal healthcare representative) was given the [facility] standardized written summary, pursuant to the Carlos Judy Blood Safety Act ([place] Health and Safety Code # 1645, as amended). I attest that I re-evaluated the patient just prior to the surgery and that there has been no change in the patient's H&P, except as documented below: Kj Conn MD Feb 08, 2019 12:12
--- NOTE | 2019-02-08 12:14 | General Progress Note ---
Assessment/Plan Problem List: (1) GIB (gastrointestinal bleeding) ICD Codes: K92.2 - Gastrointestinal hemorrhage, unspecified SNOMED: [id number] Assessment/Plan: needs emergency ERCP patient can not sign consent no family around will proceed with emergency consent Subjective ROS Limited/Unobtainable: No Allergies: Coded Allergies: No Known Allergies (Unverified , 02/07/19) Objective Last 24 Hour Vital Signs Date Time Temp Pulse Resp B/P (MAP) Pulse Ox O2 Delivery O2 Flow Rate FiO2 02/08/19 11:00 124 24 177/86 (116) 100 02/08/19 10:00 112 29 160/84 (109) 100 02/08/19 09:00 119 20 119/77 (91) 100 02/08/19 08:00 98.1 120 25 111/80 (90) 100 02/08/19 08:00 112 02/08/19 08:00 Room Air 02/08/19 07:40 97.8 121 24 168/101 100 Nasal Cannula 3.0 02/08/19 07:40 97.8 121 24 168/101 100 Nasal Cannula 3.0 02/08/19 07:00 97.6 119 26 02/08/19 06:55 97.6 118 25 02/08/19 06:45 98.0 135 27 02/08/19 06:40 98.3 132 24 02/08/19 06:35 98.3 127 33 02/08/19 06:30 97.8 138 29 02/08/19 06:05 97.9 123 26 02/08/19 06:00 98.0 110 22 144/110 (121) 97 02/08/19 06:00 98.4 126 24 02/08/19 05:55 97.6 128 30 02/08/19 05:54 Nasal Cannula 3.0 02/08/19 05:34 Nasal Cannula 3.0 02/08/19 05:20 97.5 134 30 162/85 96 Simple Mask 3.0 02/08/19 05:05 97.8 140 28 144/86 100 Nasal Cannula 3.0 02/08/19 05:05 97.8 140 28 02/08/19 05:00 97.6 139 24 143/72 95 Nasal Cannula 3.0 02/08/19 05:00 97.6 139 24 02/08/19 04:55 97.3 146 28 147/76 100 Nasal Cannula 3.0 02/08/19 04:55 97.3 146 28 02/08/19 04:50 97.3 141 30 02/08/19 04:50 97.3 141 30 150/113 89 Nasal Cannula 3.0 02/08/19 04:00 98.6 137 20 137/78 100 Nasal Cannula 3.0 02/08/19 04:00 3.0 02/08/19 03:01 97.9 153 30 126/55 100 Nasal Cannula 3.0 02/08/19 02:25 145 144/69 02/08/19 01:53 97.4 145 28 124/67 100 Nasal Cannula 3.0 02/08/19 01:14 96.9 155 30 102/56 100 Nasal Cannula 3.0 02/08/19 00:36 96.9 02/07/19 23:05 100.3 147 33 106/73 94 Nasal Cannula 3.0 02/07/19 23:05 147 33 Nasal Cannula 3.0 02/07/19 23:03 98.2 140 20 106/73 (84) 94 Nasal Cannula 2.0 Intake and Output 02/07/19 02/08/19 19:00 07:00 Intake Total 62495 ml Output Total 0 ml Balance 73614 ml Intake IV Total 5905 ml Blood Product 2000 ml Other 5000 ml Output Urine Total 0 ml # Voids 2 # Bowel Movements 12 Laboratory Tests 02/07/19 23:17: White Blood Count 34.1*H, Red Blood Count 3.87L, Hemoglobin 12.1L, Hematocrit 37.5L, Mean Corpuscular Volume 97, Mean Corpuscular Hemoglobin 31.2H, Mean Corpuscular Hemoglobin Concent 32.2, Red Cell Distribution Width 13.8, Platelet Count 307, Mean Platelet Volume 5.2L, Neutrophils (%) (Auto) , Lymphocytes (%) ( Auto) , Monocytes (%) (Auto) , Eosinophils (%) (Auto) , Basophils (%) (Auto) , Differential Total Cells Counted 100, Neutrophils % (Manual) 52, Lymphocytes % ( Manual) 41, Monocytes % (Manual) 3, Eosinophils % (Manual) 0, Basophils % ( Manual) 0, Band Neutrophils 4, Platelet Estimate Adequate, Platelet Morphology Normal, Prothrombin Time 14.0H, Prothromb Time International Ratio 1.3H, Activated Partial Thromboplast Time 32, Sodium Level 138, Potassium Level 4.8, Chloride Level 103, Carbon Dioxide Level 10L, Anion Gap 25H, Blood Urea Nitrogen 33H, Creatinine 1.9H, Estimat Glomerular Filtration Rate , Glucose Level 405H, Lactic Acid Level 21.40H, Calcium Level 10.0, Total Bilirubin 0.3, Aspartate Amino Transf (AST/SGOT) 22, Alanine Aminotransferase (ALT/SGPT) 22, Alkaline Phosphatase 58, Total Creatine Kinase 91, Creatine Kinase MB 0.8, Creatine Kinase MB Relative Index 0.8, Troponin I 0.000, Total Protein 6.2L, Albumin 2.8L, Globulin 3.4, Albumin/Globulin Ratio 0.8L 02/07/19 23:43: Urine Color Yellow, Urine Appearance Clear, Urine pH 5, Urine Specific [place] 1.025, Urine Protein 3+H, Urine Glucose (UA) 1+H, Urine Ketones 1+H, Urine Blood 3+H, Urine Nitrite Negative, Urine Bilirubin Negative, Urine Urobilinogen 1H, Urine Leukocyte Esterase 1+H, Urine RBC 2-4H, Urine WBC 2-4, Urine Squamous Epithelial Cells Few, Urine Bacteria Few 02/08/19 00:03: Arterial Blood pH 7.167*L, Arterial Blood Partial Pressure CO2 22.1*L, Arterial Blood Partial Pressure O2 148.5H, Arterial Blood HCO3 7.8*L, Arterial Blood Oxygen Saturation 97.4, Arterial Blood Base Excess -19.0*L, Uvaldo Test Positive 02/08/19 00:43: Lactic Acid Level 14.20H 02/08/19 01:10: Sodium Level 137, Potassium Level 4.8, Chloride Level 105, Carbon Dioxide Level 14L, Anion Gap 18H, Blood Urea Nitrogen 35H, Creatinine 1.7H, Estimat Glomerular Filtration Rate , Glucose Level 329H, Calcium Level 8.4L, Thyroid Stimulating Hormone (TSH) 1.847, Free Thyroxine 1.17 02/08/19 03:00: Sodium Level 140, Potassium Level 4.7, Chloride Level 113H, Carbon Dioxide Level 16L, Anion Gap 11, Blood Urea Nitrogen 30H, Creatinine 1.1, Estimat Glomerular Filtration Rate , Glucose Level 228#H, Calcium Level 6.2#L, White Blood Count 21.5H, Red Blood Count 2.56L, Hemoglobin 8.1#L, Hematocrit 23.6#L, Mean Corpuscular Volume 92, Mean Corpuscular Hemoglobin 31.6H, Mean Corpuscular Hemoglobin Concent 34.3, Red Cell Distribution Width 13.1, Platelet Count 166, Mean Platelet Volume 5.4L, Neutrophils (%) (Auto) , Lymphocytes (%) (Auto) , Monocytes (%) (Auto) , Eosinophils (%) (Auto) , Basophils (%) (Auto) 02/08/19 05:31: Arterial Blood pH 7.330L, Arterial Blood Partial Pressure CO2 31.3L, Arterial Blood Partial Pressure O2 141.7H, Arterial Blood HCO3 16.1*L, Arterial Blood Oxygen Saturation 98.1, Arterial Blood Base Excess -8.7L, Uvaldo Test Positive 02/08/19 08:40: Sodium Level 138, Potassium Level 4.7, Chloride Level 110H, Carbon Dioxide Level 20L, Anion Gap 8, Blood Urea Nitrogen 23H, Creatinine 0.9, Estimat Glomerular Filtration Rate , Glucose Level 132H, Calcium Level 6.8L, White Blood Count 20.5H, Red Blood Count 5.27, Hemoglobin 16.0#, Hematocrit 47.3#, Mean Corpuscular Volume 90, Mean Corpuscular Hemoglobin 30.5, Mean Corpuscular Hemoglobin Concent 33.9, Red Cell Distribution Width 12.6, Platelet Count 166, Mean Platelet Volume 5.6L, Neutrophils (%) (Auto) , Lymphocytes (%) (Auto) , Monocytes (%) (Auto) , Eosinophils (%) (Auto) , Basophils (%) (Auto) , Differential Total Cells Counted 100, Neutrophils % (Manual) 89H, Lymphocytes % (Manual) 8L, Monocytes % (Manual) 3, Eosinophils % (Manual) 0, Basophils % ( Manual) 0, Band Neutrophils 0, Platelet Estimate Adequate, Platelet Morphology Normal, Red Blood Cell Morphology Normal, Hemoglobin A1c 6.7H, Lactic Acid Level 3.00H, Uric Acid 5.3, Phosphorus Level 3.5, Magnesium Level 2.4, Iron Level 79, Total Iron Binding Capacity 194L, Percent Iron Saturation 41, Unsaturated Iron Binding 115, Ferritin 423H, Total Bilirubin 1.6H, Direct Bilirubin 0.3, Aspartate Amino Transf (AST/SGOT) 376H, Alanine Aminotransferase (ALT/SGPT) 95H, Alkaline Phosphatase 43L, Total Protein 5.9L, Albumin 2.8L, Globulin 3.1, Albumin/Globulin Ratio 0.9L, Triglycerides Level 65, Cholesterol Level 86, LDL Cholesterol 40, HDL Cholesterol 35L, Cholesterol/HDL Ratio 2.5L, Lipase 67L, Vitamin B12 Level 671, Folate 11.9, Acetone Level Negative 02/08/19 11:30: Lactic Acid Level [Pending] Height (Feet): 5 Height (Inches): 5.00 Weight (Pounds): 124 General Appearance: lethargic EENT: normal ENT inspection Neck: supple Cardiovascular: normal rate Respiratory/Chest: lungs clear Abdomen: normal bowel sounds, non tender, soft Extremities: non-tender Kj Conn MD Feb 08, 2019 12:14
--- NOTE | 2019-02-08 13:20 | NUR ---
NURSE NOTES: Patient back from GI lab. Patient is sedated, orally intubated ETT 7.5, 24cm at ip line, vent settings: AC14, TV 500ml, FIO2 100%, PEEP 5. No acute distress noted. Patient kept NPO. HOB elevated. VSS 222/98. Dr. June and Dr. Baumann at bedside. Labetalol 10mg IVP given by Dr. June. PRN Labetalol order received from Dr. Baumann.
--- NOTE | 2019-02-08 13:20 | NUR ---
RESPIRATORY NOTE: Pt is orally intubated in GI lab per Dr. Anish Sullivan with ETT 7.5 @24cm lips line, secured by anchor fast at 1300. Placed pt on vent with current settings: AC [id number]%FiO2- peep [address] Hull's order. Pt is sedated, tachycardia HR 129bpm, high blood pressure, saturates at 100%, RR 14bpm, no SOB or resp distress noted. Augusto rhonchi heard upon auscultation, orally suction moderate amounts of thick/ frothy clear white bloody brown red specks secretions and endotracheal suctioned scant amount of thick/thin brown nolan secretions without incidents. Sputum collected and give to RN María Zimmerman per protocol. ABG at 1400. Alarms are set and audible, vent is plugged into the red outlet, ambu bag is at bedside. RAJI Zimmerman at bedside and made aware. Will continue to monitor and suction pt q2h and as needed.
--- NOTE | 2019-02-08 13:22 | NUR ---
NURSE NOTES: Patient noted with distended abdomen. Patient seen by Dr. Baumann.
[2019-02-08] MEDS ORDERED: NS 500ML IVPB ONE (13:25)
[2019-02-08] MEDS: Pantoprazole 80 MG in NS 250 ML IV SCH ×2 (13:29→22:13)
[2019-02-08] MEDS: Thiamine HCl 100 MG in D5W 55 ML IVPB SCH (13:30)
--- NOTE | 2019-02-08 13:40 | NUR ---
NURSE NOTES: sputum collected by RT and sent down to lab.
[2019-02-08] MEDS: Labetalol 5mg/ml 20ml vial IV PRN ×2 (13:43→21:21)
--- NOTE | 2019-02-08 13:45 | NUR ---
NURSE NOTES: Prn labetalol given BP 183/115, HR 120. will continue to monitor.
--- NOTE | 2019-02-08 14:04 | Consultation ---
History of Present Illness General Date patient seen: Feb 08, 2019 Chief Complaint: Generalized Weakness Referring physician: JANET LOFTON Reason for Consultation: GI BLEED Present Illness HPI 69-year-old male presented to emergency department was identified to have GI bleed. Patient with significant anemia and transfused 4 units PRBC. Had endoscopy today which identified a large duodenal bulb ulcer with hemorrhage that was controlled endoscopically. Surgery called to evaluate and assist with care and be available in case of further bleeding. Patient seen, patient evaluate, chart reviewed. Patient currently still under anesthetic after procedure and unable to provide examination details Allergies: Coded Allergies: No Known Allergies (Unverified , 02/07/19) Medication History Scheduled No Known Medications* (NKM - No Known Medications*), 0 ., (Reported) Patient History Limited by: medical condition History Provided By: Medical Record, PMD Healthcare decision maker Resuscitation status Advanced Directive on File Past Medical/Surgical History Past Medical/Surgical History: (1) ARF (acute renal failure) (2) Sinus tachycardia (3) Sepsis (4) Dehydration (5) Lactic acidosis (6) Anemia (7) DKA (diabetic ketoacidoses) (8) Esophageal varices (9) GIB (gastrointestinal bleeding) Review of Systems ROS Narrative Cannot obtain Physical Exam General Appearance: mild distress, other Lines, tubes and drains: peripheral HEENT: mucous membranes moist Neck: normal inspection Respiratory/Chest: on vent Cardiovascular/Chest: tachycardia Abdomen: soft, hypoactive bowel sounds, distended, other - Tympanic Extremities: normal inspection Skin Exam: warm/dry Neurologic: unresponsiveness Last 24 Hour Vital Signs Date Time Temp Pulse Resp B/P (MAP) Pulse Ox O2 Delivery O2 Flow Rate FiO2 02/08/19 13:43 120 183/115 02/08/19 13:20 129 14 100 Mechanical Ventilator 100 02/08/19 13:20 129 14 100 02/08/19 12:00 Room Air 02/08/19 12:00 98.0 114 30 199/85 (123) 100 02/08/19 11:00 124 24 177/86 (116) 100 02/08/19 10:00 112 29 160/84 (109) 100 02/08/19 09:00 119 20 119/77 (91) 100 02/08/19 08:00 98.1 120 25 111/80 (90) 100 02/08/19 08:00 112 02/08/19 08:00 Room Air 02/08/19 07:40 97.8 121 24 168/101 100 Nasal Cannula 3.0 02/08/19 07:40 97.8 121 24 168/101 100 Nasal Cannula 3.0 02/08/19 07:00 97.6 119 26 02/08/19 06:55 97.6 118 25 02/08/19 06:45 98.0 135 27 02/08/19 06:40 98.3 132 24 02/08/19 06:35 98.3 127 33 02/08/19 06:30 97.8 138 29 02/08/19 06:05 97.9 123 26 02/08/19 06:00 98.0 110 22 144/110 (121) 97 02/08/19 06:00 98.4 126 24 02/08/19 05:55 97.6 128 30 02/08/19 05:54 Nasal Cannula 3.0 02/08/19 05:34 Nasal Cannula 3.0 02/08/19 05:20 97.5 134 30 162/85 96 Simple Mask 3.0 02/08/19 05:05 97.8 140 28 144/86 100 Nasal Cannula 3.0 02/08/19 05:05 97.8 140 28 02/08/19 05:00 97.6 139 24 143/72 95 Nasal Cannula 3.0 02/08/19 05:00 97.6 139 24 02/08/19 04:55 97.3 146 28 147/76 100 Nasal Cannula 3.0 02/08/19 04:55 97.3 146 28 02/08/19 04:50 97.3 141 30 02/08/19 04:50 97.3 141 30 150/113 89 Nasal Cannula 3.0 02/08/19 04:00 98.6 137 20 137/78 100 Nasal Cannula 3.0 02/08/19 04:00 3.0 02/08/19 03:01 97.9 153 30 126/55 100 Nasal Cannula 3.0 02/08/19 02:25 145 144/69 02/08/19 01:53 97.4 145 28 124/67 100 Nasal Cannula 3.0 02/08/19 01:14 96.9 155 30 102/56 100 Nasal Cannula 3.0 02/08/19 00:36 96.9 02/07/19 23:05 100.3 147 33 106/73 94 Nasal Cannula 3.0 02/07/19 23:05 147 33 Nasal Cannula 3.0 02/07/19 23:03 98.2 140 20 106/73 (84) 94 Nasal Cannula 2.0 Intake and Output 02/07/19 02/08/19 19:00 07:00 Intake Total 40306 ml Output Total 0 ml Balance 62934 ml Intake IV Total 5905 ml Blood Product 2000 ml Other 5000 ml Output Urine Total 0 ml # Voids 2 # Bowel Movements 12 Laboratory Tests Test 02/07/19 23:17 02/07/19 23:43 02/08/19 00:03 02/08/19 00:43 White Blood Count 34.1 K/UL (4.8-10.8) *H Red Blood Count 3.87 M/UL (4.70-6.10) L Hemoglobin 12.1 G/DL (14.2-18.0) L Hematocrit 37.5 % (42.0-52.0) L Mean Corpuscular Volume 97 FL (80-99) Mean Corpuscular Hemoglobin 31.2 PG (27.0-31.0) H Mean Corpuscular Hemoglobin Concent 32.2 G/DL (32.0-36.0) Red Cell Distribution Width 13.8 % (11.6-14.8) Platelet Count 307 K/UL (150-450) Mean Platelet Volume 5.2 FL (6.5-10.1) L Neutrophils (%) (Auto) % (45.0-75.0) Lymphocytes (%) (Auto) % (20.0-45.0) Monocytes (%) (Auto) % (1.0-10.0) Eosinophils (%) (Auto) % (0.0-3.0) Basophils (%) (Auto) % (0.0-2.0) Differential Total Cells Counted 100 Neutrophils % (Manual) 52 % (45-75) Lymphocytes % (Manual) 41 % (20-45) Monocytes % (Manual) 3 % (1-10) Eosinophils % (Manual) 0 % (0-3) Basophils % (Manual) 0 % (0-2) Band Neutrophils 4 % (0-8) Platelet Estimate Adequate Platelet Morphology Normal Prothrombin Time 14.0 SEC (9.30-11.50) H Prothromb Time International Ratio 1.3 (0.9-1.1) H Activated Partial Thromboplast Time 32 SEC (23-33) Sodium Level 138 MMOL/L (136-145) Potassium Level 4.8 MMOL/L (3.5-5.1) Chloride Level 103 MMOL/L (98-107) Carbon Dioxide Level 10 MMOL/L (21-32) L Anion Gap 25 mmol/L (5-15) H Blood Urea Nitrogen 33 mg/dL (7-18) H Creatinine 1.9 MG/DL (0.55-1.30) H Estimat Glomerular Filtration Rate mL/min (>60) Glucose Level 405 MG/DL (74-106) H Lactic Acid Level 21.40 mmol/L (0.4-2.0) H 14.20 mmol/L (0.66-2.22) H Calcium Level 10.0 MG/DL (8.5-10.1) Total Bilirubin 0.3 MG/DL (0.2-1.0) Aspartate Amino Transf (AST/SGOT) 22 U/L (15-37) Alanine Aminotransferase (ALT/SGPT) 22 U/L (12-78) Alkaline Phosphatase 58 U/L (46-116) Total Creatine Kinase 91 U/L (26-308) Creatine Kinase MB 0.8 NG/ML (0.0-3.6) Creatine Kinase MB Relative Index 0.8 Troponin I 0.000 ng/mL (0.000-0.056) Total Protein 6.2 G/DL (6.4-8.2) L Albumin 2.8 G/DL (3.4-5.0) L Globulin 3.4 g/dL Albumin/Globulin Ratio 0.8 (1.0-2.7) L Urine Color Yellow Urine Appearance Clear Urine pH 5 (4.5-8.0) Urine Specific [place] 1.025 (1.005-1.035) Urine Protein 3+ (NEGATIVE) H Urine Glucose (UA) 1+ (NEGATIVE) H Urine Ketones 1+ (NEGATIVE) H Urine Blood 3+ (NEGATIVE) H Urine Nitrite Negative (NEGATIVE) Urine Bilirubin Negative (NEGATIVE) Urine Urobilinogen 1 MG/DL (0.0-1.0) H Urine Leukocyte Esterase 1+ (NEGATIVE) H Urine RBC 2-4 /HPF (0 - 0) H Urine WBC 2-4 /HPF (0 - 0) Urine Squamous Epithelial Cells Few /LPF (NONE/OCC) Urine Bacteria Few /HPF (NONE) Arterial Blood pH 7.167 (7.350-7.450) Arterial Blood Partial Pressure CO2 22.1 mmHg (35.0-45.0) *L Arterial Blood Partial Pressure O2 148.5 mmHg (75.0-100.0) H Arterial Blood HCO3 7.8 mmol/L (22.0-26.0) *L Arterial Blood Oxygen Saturation 97.4 % (95-100) Arterial Blood Base Excess -19.0 (-2-2) *L Uvaldo Test Positive Test 02/08/19 01:10 02/08/19 03:00 02/08/19 05:31 02/08/19 08:40 Sodium Level 137 MMOL/L (136-145) 140 MMOL/L (136-145) 138 MMOL/L (136-145) Potassium Level 4.8 MMOL/L (3.5-5.1) 4.7 MMOL/L (3.5-5.1) 4.7 MMOL/L (3.5-5.1) Chloride Level 105 MMOL/L (98-107) 113 MMOL/L (98-107) H 110 MMOL/L (98-107) H Carbon Dioxide Level 14 MMOL/L (21-32) L 16 MMOL/L (21-32) L 20 MMOL/L (21-32) L Anion Gap 18 mmol/L (5-15) H 11 mmol/L (5-15) 8 mmol/L (5-15) Blood Urea Nitrogen 35 mg/dL (7-18) H 30 mg/dL (7-18) H 23 mg/dL (7-18) H Creatinine 1.7 MG/DL (0.55-1.30) H 1.1 MG/DL (0.55-1.30) 0.9 MG/DL (0.55-1.30) Estimat Glomerular Filtration Rate mL/min (>60) mL/min (>60) mL/min (>60) Glucose Level 329 MG/DL (74-106) H 228 MG/DL (74-106) #H 132 MG/DL (74-106) H Calcium Level 8.4 MG/DL (8.5-10.1) L 6.2 MG/DL (8.5-10.1) #L 6.8 MG/DL (8.5-10.1) L Thyroid Stimulating Hormone (TSH) 1.847 uiU/mL (0.358-3.740) Free Thyroxine 1.17 NG/DL (0.76-1.46) White Blood Count 21.5 K/UL (4.8-10.8) H 20.5 K/UL (4.8-10.8) H Red Blood Count 2.56 M/UL (4.70-6.10) L 5.27 M/UL (4.70-6.10) Hemoglobin 8.1 G/DL (14.2-18.0) #L 16.0 G/DL (14.2-18.0) # Hematocrit 23.6 % (42.0-52.0) #L 47.3 % (42.0-52.0) # Mean Corpuscular Volume 92 FL (80-99) 90 FL (80-99) Mean Corpuscular Hemoglobin 31.6 PG (27.0-31.0) H 30.5 PG (27.0-31.0) Mean Corpuscular Hemoglobin Concent 34.3 G/DL (32.0-36.0) 33.9 G/DL (32.0-36.0) Red Cell Distribution Width 13.1 % (11.6-14.8) 12.6 % (11.6-14.8) Platelet Count 166 K/UL (150-450) 166 K/UL (150-450) Mean Platelet Volume 5.4 FL (6.5-10.1) L 5.6 FL (6.5-10.1) L Neutrophils (%) (Auto) % (45.0-75.0) % (45.0-75.0) Lymphocytes (%) (Auto) % (20.0-45.0) % (20.0-45.0) Monocytes (%) (Auto) % (1.0-10.0) % (1.0-10.0) Eosinophils (%) (Auto) % (0.0-3.0) % (0.0-3.0) Basophils (%) (Auto) % (0.0-2.0) % (0.0-2.0) Arterial Blood pH 7.330 (7.350-7.450) Arterial Blood Partial Pressure CO2 31.3 mmHg (35.0-45.0) L Arterial Blood Partial Pressure O2 141.7 mmHg (75.0-100.0) H Arterial Blood HCO3 16.1 mmol/L (22.0-26.0) *L Arterial Blood Oxygen Saturation 98.1 % (95-100) Arterial Blood Base Excess -8.7 (-2-2) L Uvaldo Test Positive Differential Total Cells Counted 100 Neutrophils % (Manual) 89 % (45-75) H Lymphocytes % (Manual) 8 % (20-45) L Monocytes % (Manual) 3 % (1-10) Eosinophils % (Manual) 0 % (0-3) Basophils % (Manual) 0 % (0-2) Band Neutrophils 0 % (0-8) Platelet Estimate Adequate Platelet Morphology Normal Red Blood Cell Morphology Normal Hemoglobin A1c 6.7 % (4.3-6.0) H Lactic Acid Level 3.00 mmol/L (0.4-2.0) H Uric Acid 5.3 MG/DL (2.6-7.2) Phosphorus Level 3.5 MG/DL (2.5-4.9) Magnesium Level 2.4 MG/DL (1.8-2.4) Iron Level 79 ug/dL (50-175) Total Iron Binding Capacity 194 ug/dL (250-450) L Percent Iron Saturation 41 % (15-50) Unsaturated Iron Binding 115 ug/dL (112-346) Ferritin 423 NG/ML (8-388) H Total Bilirubin 1.6 MG/DL (0.2-1.0) H Direct Bilirubin 0.3 MG/DL (0.0-0.3) Aspartate Amino Transf (AST/SGOT) 376 U/L (15-37) H Alanine Aminotransferase (ALT/SGPT) 95 U/L (12-78) H Alkaline Phosphatase 43 U/L (46-116) L Total Protein 5.9 G/DL (6.4-8.2) L Albumin 2.8 G/DL (3.4-5.0) L Globulin 3.1 g/dL Albumin/Globulin Ratio 0.9 (1.0-2.7) L Triglycerides Level 65 MG/DL (30-150) Cholesterol Level 86 MG/DL (< 200) LDL Cholesterol 40 mg/dL (<100) HDL Cholesterol 35 MG/DL (40-60) L Cholesterol/HDL Ratio 2.5 (3.3-4.4) L Lipase 67 U/L (73-393) L Vitamin B12 Level 671 PG/ML (193-986) Folate 11.9 NG/ML (8.6-58.9) Acetone Level Negative (NEGATIVE) Test 02/08/19 11:30 Lactic Acid Level 1.80 mmol/L (0.66-2.22) Microbiology Date/Time Source Procedure Growth Status 02/08/19 00:56 Rectum Received Height (Feet): 5 Height (Inches): 5.00 Weight (Pounds): 124 Medications Current Medications Medications (Trade) Dose Ordered Sig/Manish Route PRN Reason Start Time Stop Time Status Last Admin Dose Admin Acetaminophen (Tylenol) 650 mg Q4H PRN ORAL Mild Pain (Pain Scale 1-3) 02/08/19 12:00 02/08/19 17:00 Acetaminophen (Tylenol) 650 mg Q6H PRN ORAL Mild Pain/Temp > 100.5 02/08/19 09:00 03/10/19 08:59 Clonidine HCl (Catapres Tab) 0.1 mg Q4H PRN ORAL bp over 165 syst 02/08/19 11:45 03/10/19 11:44 Dextrose (Dextrose 50%) 25 ml Q30M PRN IV Hypoglycemia 02/08/19 09:00 03/10/19 08:59 Dextrose (Dextrose 50%) 50 ml Q30M PRN IV Hypoglycemia 02/08/19 09:00 03/10/19 08:59 Diphenhydramine HCl (Benadryl) 25 mg Q15M PRN IVP Itching 02/08/19 12:00 02/08/19 17:00 Hydralazine HCl (Apresoline) 5 mg Q30M PRN IV SBP>160/DBP>90 02/08/19 12:00 02/08/19 17:00 Insulin Aspart (NovoLOG) Q6HR SUBQ 02/08/19 12:00 03/10/19 11:59 Labetalol HCl (Normodyne) 20 mg Q4H PRN IV SBP>150 02/08/19 13:22 03/10/19 13:21 02/08/19 13:43 Lorazepam (Ativan 2mg/ml 1ml) 1 mg Q4H PRN IV For Anxiety 02/08/19 12:00 02/15/19 11:59 Octreotide Acetate 500 mcg/ Sodium Chloride 500 ml @ 50 mls/hr Q10H IV 02/08/19 12:00 03/10/19 11:59 02/08/19 13:29 Ondansetron HCl (Zofran) 4 mg Q1H PRN IVP Nausea & Vomiting 02/08/19 12:00 02/08/19 17:00 Pantoprazole 80 mg/Sodium Chloride 250 ml @ 25 mls/hr Q10H IV 02/08/19 12:00 03/10/19 11:59 02/08/19 13:29 Piperacillin Sod/ Tazobactam Sod 3.375 gm/Sodium Chloride 110 ml @ 27.5 mls/hr EVERY 8 HOURS IVPB 02/08/19 12:00 02/13/19 11:59 Thiamine HCl 100 mg/Dextrose 56 ml @ 112 mls/hr Q24H IVPB 02/08/19 13:00 03/10/19 12:59 02/08/19 13:30 Assessment/Plan Problem List: (1) GIB (gastrointestinal bleeding) Assessment & Plan: 69-year-old male with acute gastrointestinal hemorrhage secondary to large duodenal ulcer. Patient had endoscopy with hemostasis just now identified a large ulcer with potential to rebleed. Need to control patient's hypertension and allow for even permissive hypotension if necessary Every 6 hours H&H trend transfuse as needed NG tube Will follow and be available in case patient rebleeds at which time he will require an exploration thank you for allowing me to participate in patient's care will follow with recommendations ICD Codes: K92.2 - Gastrointestinal hemorrhage, unspecified SNOMED: [id number] Adelso Baumann Feb 08, 2019 14:04
--- NOTE | 2019-02-08 14:25 | Endoscopy Procedure Note ---
Endoscopy Procedure Note General Indication for Procedure: gib Procedures Performed: EGD Operative Findings/Diagnosis: DU Specimen: yes Pt Tolerated Procedure Well: Yes Estimated Blood Loss: none Anesthesia Anesthesiologist: milagros Anesthesia: MAC Inserted Devices Implant(s) used?: No GI Core Measures 50 yrs or older w/o bx or poly: Not Applicable 10yrs. F/U recommended: Not Applicable Kj Conn MD Feb 08, 2019 14:25
[2019-02-08] MEDS: Piperacillin/Tazobactam 3.375 GM in NS 110 ML IVPB SCH ×2 (14:31→22:13)
[2019-02-08 14:41] LABS: HEMATOCRIT 43.5 % (42.0-52.0); HEMOGLOBIN 14.9 G/DL (14.2-18.0); MEAN CORPUSCULAR VOLUME 90 FL (80-99); PLATELET COUNT 178 K/UL (150-450); RED BLOOD COUNT 4.83 M/UL (4.70-6.10); WHITE BLOOD COUNT 19.3 K/UL (4.8-10.8)
--- NOTE | 2019-02-08 15:25 | NUR ---
NURSE NOTES: Patient was awake, tried to reach for ETT and remove ETT. Patient is still drowsy. Applied bilateral soft wrist restrains to prevent patient from removing ETT. Skin intact, pulses present. Will continue to monitor.
--- NOTE | 2019-02-08 15:45 | NUR ---
NURSE NOTES: ABG results notified to Dr. Gallagher. Vent settings changed by . RT made aware.
--- NOTE | 2019-02-08 16:02 | Cardiac Electrophysiology PN ---
Subjective Subjective [id number] Objective Last 24 Hour Vital Signs Date Time Temp Pulse Resp B/P (MAP) Pulse Ox O2 Delivery O2 Flow Rate FiO2 02/08/19 15:00 98 29 146/85 (105) 100 02/08/19 14:30 102 27 50 02/08/19 14:30 101 26 162/86 (111) 100 02/08/19 14:20 70 02/08/19 14:00 98.0 114 30 199/85 (123) 100 02/08/19 13:53 111 13 163/97 (119) 100 02/08/19 13:43 120 183/115 02/08/19 13:30 117 20 183/115 (137) 100 02/08/19 13:20 129 14 100 Mechanical Ventilator 100 02/08/19 13:20 129 14 100 02/08/19 12:00 Room Air 02/08/19 12:00 117 02/08/19 12:00 98.0 114 30 199/85 (123) 100 02/08/19 11:00 124 24 177/86 (116) 100 02/08/19 10:00 112 29 160/84 (109) 100 02/08/19 09:00 119 20 119/77 (91) 100 02/08/19 08:00 98.1 120 25 111/80 (90) 100 02/08/19 08:00 112 02/08/19 08:00 Room Air 02/08/19 07:40 97.8 121 24 168/101 100 Nasal Cannula 3.0 02/08/19 07:40 97.8 121 24 168/101 100 Nasal Cannula 3.0 02/08/19 07:00 97.6 119 26 02/08/19 06:55 97.6 118 25 02/08/19 06:45 98.0 135 27 02/08/19 06:40 98.3 132 24 02/08/19 06:35 98.3 127 33 02/08/19 06:30 97.8 138 29 02/08/19 06:05 97.9 123 26 02/08/19 06:00 98.0 110 22 144/110 (121) 97 02/08/19 06:00 98.4 126 24 02/08/19 05:55 97.6 128 30 02/08/19 05:54 Nasal Cannula 3.0 02/08/19 05:34 Nasal Cannula 3.0 02/08/19 05:20 97.5 134 30 162/85 96 Simple Mask 3.0 02/08/19 05:05 97.8 140 28 144/86 100 Nasal Cannula 3.0 02/08/19 05:05 97.8 140 28 02/08/19 05:00 97.6 139 24 143/72 95 Nasal Cannula 3.0 02/08/19 05:00 97.6 139 24 02/08/19 04:55 97.3 146 28 147/76 100 Nasal Cannula 3.0 02/08/19 04:55 97.3 146 28 02/08/19 04:50 97.3 141 30 02/08/19 04:50 97.3 141 30 150/113 89 Nasal Cannula 3.0 02/08/19 04:00 98.6 137 20 137/78 100 Nasal Cannula 3.0 02/08/19 04:00 3.0 02/08/19 03:01 97.9 153 30 126/55 100 Nasal Cannula 3.0 02/08/19 02:25 145 144/69 02/08/19 01:53 97.4 145 28 124/67 100 Nasal Cannula 3.0 02/08/19 01:14 96.9 155 30 102/56 100 Nasal Cannula 3.0 02/08/19 00:36 96.9 02/07/19 23:05 100.3 147 33 106/73 94 Nasal Cannula 3.0 02/07/19 23:05 147 33 Nasal Cannula 3.0 02/07/19 23:03 98.2 140 20 106/73 (84) 94 Nasal Cannula 2.0 Intake and Output 02/07/19 02/08/19 19:00 07:00 Intake Total 04824 ml Output Total 0 ml Balance 75924 ml Intake IV Total 5905 ml Blood Product 2000 ml Other 5000 ml Output Urine Total 0 ml # Voids 2 # Bowel Movements 12 Laboratory Tests Test 02/07/19 23:17 02/07/19 23:43 02/08/19 00:03 02/08/19 00:43 White Blood Count 34.1 K/UL (4.8-10.8) *H Red Blood Count 3.87 M/UL (4.70-6.10) L Hemoglobin 12.1 G/DL (14.2-18.0) L Hematocrit 37.5 % (42.0-52.0) L Mean Corpuscular Volume 97 FL (80-99) Mean Corpuscular Hemoglobin 31.2 PG (27.0-31.0) H Mean Corpuscular Hemoglobin Concent 32.2 G/DL (32.0-36.0) Red Cell Distribution Width 13.8 % (11.6-14.8) Platelet Count 307 K/UL (150-450) Mean Platelet Volume 5.2 FL (6.5-10.1) L Neutrophils (%) (Auto) % (45.0-75.0) Lymphocytes (%) (Auto) % (20.0-45.0) Monocytes (%) (Auto) % (1.0-10.0) Eosinophils (%) (Auto) % (0.0-3.0) Basophils (%) (Auto) % (0.0-2.0) Differential Total Cells Counted 100 Neutrophils % (Manual) 52 % (45-75) Lymphocytes % (Manual) 41 % (20-45) Monocytes % (Manual) 3 % (1-10) Eosinophils % (Manual) 0 % (0-3) Basophils % (Manual) 0 % (0-2) Band Neutrophils 4 % (0-8) Platelet Estimate Adequate Platelet Morphology Normal Prothrombin Time 14.0 SEC (9.30-11.50) H Prothromb Time International Ratio 1.3 (0.9-1.1) H Activated Partial Thromboplast Time 32 SEC (23-33) Sodium Level 138 MMOL/L (136-145) Potassium Level 4.8 MMOL/L (3.5-5.1) Chloride Level 103 MMOL/L (98-107) Carbon Dioxide Level 10 MMOL/L (21-32) L Anion Gap 25 mmol/L (5-15) H Blood Urea Nitrogen 33 mg/dL (7-18) H Creatinine 1.9 MG/DL (0.55-1.30) H Estimat Glomerular Filtration Rate mL/min (>60) Glucose Level 405 MG/DL (74-106) H Lactic Acid Level 21.40 mmol/L (0.4-2.0) H 14.20 mmol/L (0.66-2.22) H Calcium Level 10.0 MG/DL (8.5-10.1) Total Bilirubin 0.3 MG/DL (0.2-1.0) Aspartate Amino Transf (AST/SGOT) 22 U/L (15-37) Alanine Aminotransferase (ALT/SGPT) 22 U/L (12-78) Alkaline Phosphatase 58 U/L (46-116) Total Creatine Kinase 91 U/L (26-308) Creatine Kinase MB 0.8 NG/ML (0.0-3.6) Creatine Kinase MB Relative Index 0.8 Troponin I 0.000 ng/mL (0.000-0.056) Total Protein 6.2 G/DL (6.4-8.2) L Albumin 2.8 G/DL (3.4-5.0) L Globulin 3.4 g/dL Albumin/Globulin Ratio 0.8 (1.0-2.7) L Urine Color Yellow Urine Appearance Clear Urine pH 5 (4.5-8.0) Urine Specific [place] 1.025 (1.005-1.035) Urine Protein 3+ (NEGATIVE) H Urine Glucose (UA) 1+ (NEGATIVE) H Urine Ketones 1+ (NEGATIVE) H Urine Blood 3+ (NEGATIVE) H Urine Nitrite Negative (NEGATIVE) Urine Bilirubin Negative (NEGATIVE) Urine Urobilinogen 1 MG/DL (0.0-1.0) H Urine Leukocyte Esterase 1+ (NEGATIVE) H Urine RBC 2-4 /HPF (0 - 0) H Urine WBC 2-4 /HPF (0 - 0) Urine Squamous Epithelial Cells Few /LPF (NONE/OCC) Urine Bacteria Few /HPF (NONE) Arterial Blood pH 7.167 (7.350-7.450) Arterial Blood Partial Pressure CO2 22.1 mmHg (35.0-45.0) *L Arterial Blood Partial Pressure O2 148.5 mmHg (75.0-100.0) H Arterial Blood HCO3 7.8 mmol/L (22.0-26.0) *L Arterial Blood Oxygen Saturation 97.4 % (95-100) Arterial Blood Base Excess -19.0 (-2-2) *L Uvaldo Test Positive Test 02/08/19 01:10 02/08/19 03:00 02/08/19 05:31 02/08/19 08:40 Sodium Level 137 MMOL/L (136-145) 140 MMOL/L (136-145) 138 MMOL/L (136-145) Potassium Level 4.8 MMOL/L (3.5-5.1) 4.7 MMOL/L (3.5-5.1) 4.7 MMOL/L (3.5-5.1) Chloride Level 105 MMOL/L (98-107) 113 MMOL/L (98-107) H 110 MMOL/L (98-107) H Carbon Dioxide Level 14 MMOL/L (21-32) L 16 MMOL/L (21-32) L 20 MMOL/L (21-32) L Anion Gap 18 mmol/L (5-15) H 11 mmol/L (5-15) 8 mmol/L (5-15) Blood Urea Nitrogen 35 mg/dL (7-18) H 30 mg/dL (7-18) H 23 mg/dL (7-18) H Creatinine 1.7 MG/DL (0.55-1.30) H 1.1 MG/DL (0.55-1.30) 0.9 MG/DL (0.55-1.30) Estimat Glomerular Filtration Rate mL/min (>60) mL/min (>60) mL/min (>60) Glucose Level 329 MG/DL (74-106) H 228 MG/DL (74-106) #H 132 MG/DL (74-106) H Calcium Level 8.4 MG/DL (8.5-10.1) L 6.2 MG/DL (8.5-10.1) #L 6.8 MG/DL (8.5-10.1) L Thyroid Stimulating Hormone (TSH) 1.847 uiU/mL (0.358-3.740) Free Thyroxine 1.17 NG/DL (0.76-1.46) White Blood Count 21.5 K/UL (4.8-10.8) H 20.5 K/UL (4.8-10.8) H Red Blood Count 2.56 M/UL (4.70-6.10) L 5.27 M/UL (4.70-6.10) Hemoglobin 8.1 G/DL (14.2-18.0) #L 16.0 G/DL (14.2-18.0) # Hematocrit 23.6 % (42.0-52.0) #L 47.3 % (42.0-52.0) # Mean Corpuscular Volume 92 FL (80-99) 90 FL (80-99) Mean Corpuscular Hemoglobin 31.6 PG (27.0-31.0) H 30.5 PG (27.0-31.0) Mean Corpuscular Hemoglobin Concent 34.3 G/DL (32.0-36.0) 33.9 G/DL (32.0-36.0) Red Cell Distribution Width 13.1 % (11.6-14.8) 12.6 % (11.6-14.8) Platelet Count 166 K/UL (150-450) 166 K/UL (150-450) Mean Platelet Volume 5.4 FL (6.5-10.1) L 5.6 FL (6.5-10.1) L Neutrophils (%) (Auto) % (45.0-75.0) % (45.0-75.0) Lymphocytes (%) (Auto) % (20.0-45.0) % (20.0-45.0) Monocytes (%) (Auto) % (1.0-10.0) % (1.0-10.0) Eosinophils (%) (Auto) % (0.0-3.0) % (0.0-3.0) Basophils (%) (Auto) % (0.0-2.0) % (0.0-2.0) Arterial Blood pH 7.330 (7.350-7.450) Arterial Blood Partial Pressure CO2 31.3 mmHg (35.0-45.0) L Arterial Blood Partial Pressure O2 141.7 mmHg (75.0-100.0) H Arterial Blood HCO3 16.1 mmol/L (22.0-26.0) *L Arterial Blood Oxygen Saturation 98.1 % (95-100) Arterial Blood Base Excess -8.7 (-2-2) L Uvaldo Test Positive Differential Total Cells Counted 100 Neutrophils % (Manual) 89 % (45-75) H Lymphocytes % (Manual) 8 % (20-45) L Monocytes % (Manual) 3 % (1-10) Eosinophils % (Manual) 0 % (0-3) Basophils % (Manual) 0 % (0-2) Band Neutrophils 0 % (0-8) Platelet Estimate Adequate Platelet Morphology Normal Red Blood Cell Morphology Normal Hemoglobin A1c 6.7 % (4.3-6.0) H Lactic Acid Level 3.00 mmol/L (0.4-2.0) H Uric Acid 5.3 MG/DL (2.6-7.2) Phosphorus Level 3.5 MG/DL (2.5-4.9) Magnesium Level 2.4 MG/DL (1.8-2.4) Iron Level 79 ug/dL (50-175) Total Iron Binding Capacity 194 ug/dL (250-450) L Percent Iron Saturation 41 % (15-50) Unsaturated Iron Binding 115 ug/dL (112-346) Ferritin 423 NG/ML (8-388) H Total Bilirubin 1.6 MG/DL (0.2-1.0) H Direct Bilirubin 0.3 MG/DL (0.0-0.3) Aspartate Amino Transf (AST/SGOT) 376 U/L (15-37) H Alanine Aminotransferase (ALT/SGPT) 95 U/L (12-78) H Alkaline Phosphatase 43 U/L (46-116) L Total Protein 5.9 G/DL (6.4-8.2) L Albumin 2.8 G/DL (3.4-5.0) L Globulin 3.1 g/dL Albumin/Globulin Ratio 0.9 (1.0-2.7) L Triglycerides Level 65 MG/DL (30-150) Cholesterol Level 86 MG/DL (< 200) LDL Cholesterol 40 mg/dL (<100) HDL Cholesterol 35 MG/DL (40-60) L Cholesterol/HDL Ratio 2.5 (3.3-4.4) L Lipase 67 U/L (73-393) L Vitamin B12 Level 671 PG/ML (193-986) Folate 11.9 NG/ML (8.6-58.9) Acetone Level Negative (NEGATIVE) Test 02/08/19 11:30 02/08/19 14:05 02/08/19 14:15 Lactic Acid Level 1.80 mmol/L (0.66-2.22) Arterial Blood pH 7.291 (7.350-7.450) Arterial Blood Partial Pressure CO2 38.3 mmHg (35.0-45.0) Arterial Blood Partial Pressure O2 323.1 mmHg (75.0-100.0) H Arterial Blood HCO3 18.0 mmol/L (22.0-26.0) L Arterial Blood Oxygen Saturation 99.4 % (95-100) Arterial Blood Base Excess -7.9 (-2-2) L Uvaldo Test Positive White Blood Count 19.3 K/UL (4.8-10.8) H Red Blood Count 4.83 M/UL (4.70-6.10) Hemoglobin 14.9 G/DL (14.2-18.0) Hematocrit 43.5 % (42.0-52.0) Mean Corpuscular Volume 90 FL (80-99) Mean Corpuscular Hemoglobin 30.9 PG (27.0-31.0) Mean Corpuscular Hemoglobin Concent 34.3 G/DL (32.0-36.0) Red Cell Distribution Width 13.0 % (11.6-14.8) Platelet Count 178 K/UL (150-450) Mean Platelet Volume 5.5 FL (6.5-10.1) L Neutrophils (%) (Auto) % (45.0-75.0) Lymphocytes (%) (Auto) % (20.0-45.0) Monocytes (%) (Auto) % (1.0-10.0) Eosinophils (%) (Auto) % (0.0-3.0) Basophils (%) (Auto) % (0.0-2.0) Differential Total Cells Counted 100 Neutrophils % (Manual) 88 % (45-75) H Lymphocytes % (Manual) 6 % (20-45) L Monocytes % (Manual) 4 % (1-10) Eosinophils % (Manual) 0 % (0-3) Basophils % (Manual) 0 % (0-2) Band Neutrophils 2 % (0-8) Platelet Estimate Adequate Platelet Morphology Normal Red Blood Cell Morphology Normal Microbiology Date/Time Source Procedure Growth Status 02/08/19 00:56 Rectum Received Matthew Kent MD Feb 08, 2019 16:02
--- NOTE | 2019-02-08 16:15 | NUR ---
NURSE NOTES: Received a call from Radiologist, Dr. Knapp. per MD, ETT needs to be pulled back 2cm.
--- NOTE | 2019-02-08 16:18 | Diagnostic Imaging Report ---
Indication: Post intubation Technique: One view of the chest Comparison: 02/07/2019 Findings: Interim endotracheal intubation. Endotracheal tube tip projects at the level of the damian. The lungs and pleural spaces remain clear. The heart size is normal. Impression: Somewhat low position of endotracheal tube. Slight retraction recommended. This critical value finding was phoned to the patient's nurse at the time of interpretation No acute process otherwise
--- NOTE | 2019-02-08 16:40 | NUR ---
NURSE NOTES: ETT was pulled back 2cm by RT and chest xray taken to confirm placement of ETT, awaiting for results.
--- NOTE | 2019-02-08 16:44 | NUR ---
CASE MANAGEMENT: NOTE INTERQUAL MET
--- NOTE | 2019-02-08 16:53 | NUR ---
Social Service Note Unable to interview patient at this time. Patient orally intubated. Will monitor and follow up.
--- NOTE | 2019-02-08 17:35 | NUR ---
NURSE NOTES: FIO2 decreased to 30% by RT. No distress noted.
--- NOTE | 2019-02-08 17:36 | Diagnostic Imaging Report ---
Indication: Status post readjustment of endotracheal tube Technique: One view of the chest Comparison: One hour earlier Findings: Interim retraction of previously malpositioned endotracheal tube, tip now in good position approximately 3 cm above the damian. There is minimal scarring at left lung base. Lungs and pleural spaces are otherwise clear. The heart size is normal. Impression: Satisfactory adjustment of endotracheal tube position.
[2019-02-08] MEDS: Enalaprilat 2.5mg/2ml Inj IV SCH ×2 (17:45→23:49)
--- NOTE | 2019-02-08 18:00 | NUR ---
NURSE NOTES: Patient was turned and repositioned. Patient continues to have black loose stool. VSS. No acute distress noted.
--- NOTE | 2019-02-08 18:30 | Consultation ---
DATE OF CONSULTATION: 02/08/2019 INFECTIOUS DISEASE CONSULT CONSULTING PHYSICIAN: Fazal Basilio M.D. PRIMARY ATTENDING: Harvey Gee M.D. REASON FOR CONSULT: Sepsis, systemic inflammatory response syndrome. HISTORY OF PRESENT ILLNESS: This is a 69-year-old male admitted this morning after a friend called from bus stop to 911. The patient initially admitted with weakness, confusion. Had low-grade fever of 100.3, tachycardia with heart rate of 147. Had leukocytosis of 34.1. Had hyperglycemia with blood glucose of 405 at the time of admission. Had lactic acidosis. Had GI bleeding and drop in hemoglobin and hematocrit. He went to OR and had EGD that showed bleeding duodenal ulcer. During the procedure, the patient is intubated and currently is in ICU. PAST MEDICAL HISTORY: Diabetes mellitus. ALLERGIES: No known drug allergies. MEDICATIONS: Labetalol, thiamine, insulin, Zosyn, octreotide, Protonix, Tylenol, Zofran, hydralazine, diphenhydramine, Klonopin. Got a dose of calcium chloride. No other history obtained from the patient. PHYSICAL EXAMINATION: VITAL SIGNS: Temperature 98, pulse 102, blood pressure 199/85. HEAD AND NECK: Orally intubated. HEART: Tachycardic. LUNGS: On ventilator. Had bilateral rhonchi. ABDOMEN: Distended, soft. EXTREMITIES: Has no edema. SKIN: Has onychomycosis on toes and fingers. Also has tinea pedis bilaterally. NEUROLOGIC: Opens eyes. On restraints. LABORATORY AND DIAGNOSTIC DATA: Sodium 130, potassium 4.7, chloride 110, bicarb 20, BUN 23, creatinine 0.9, creatinine at the time of admission was 1.9. Lactic acid before was 21.4. Bilirubin 1.6, AST 376, ALT 95, alkaline phosphatase 143. Albumin 2.8. Acetone level negative. UA positive for ketone. Blood gas at the time of admission showed severe acidosis. CT of abdomen and pelvis showed colonic diverticulosis, mild diverticulitis, bladder distention,prostate enlargement, atelectatic changes, hiatal hernia, and a small bilateral inguinal hernia. 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 Chest x-ray showed no acute disease. IMPRESSION: Sepsis, systemic inflammatory response syndrome, GI bleeding secondary to duodenal ulcer. Has diabetic ketoacidosis, lactic acidosis, acute renal failure that is improving. Has onychomycosis and tinea pedis, anemia, received blood transfusion, has elevated transaminase level. RECOMMENDATION: We will continue Zosyn and order clotrimazole for his feet. Follow up the culture and lab. At the end of my exam, I thank Dr. Gee for involving me in the care of this patient. Fazal Basilio M.D. DR: NICOLE JOB#: [id number] CC: JAMES
--- NOTE | 2019-02-08 19:03 | NUR ---
RESPIRATORY NOTE: Received pt on AC 18, 500VT, 30%, PEEP +5. Pt intubated w/ ETT 7.5 @ 22cm lipline, secured by anchorfast. Pt alert/awake, follows commands. B/S delfin. clear/diminished, sxn small amounts of thick, frothy, pale-yellow secretions. Both hands on soft restraints to prevent pt from self-extubation. Vent plugged into red outlet, ambubag at bedside. Pt in no apparent distress at this time. Will continue to monitor pt.
--- NOTE | 2019-02-08 19:28 | NUR ---
HAND-OFF: Report given to RAJI Masterson.
--- NOTE | 2019-02-08 19:30 | NUR ---
NURSE NOTES: Received report from Argenis ALEGRIA. Patient awake, on ETT 7.5/22cm lip line vent with current settings: AC 18, VT 500, Fi02 30%, peep 5, saturation at 100%, No SOB. No acute distress distress noted. Bilateral rhonchi heard upon auscultation, orally suction moderate amounts of thick/ frothy clear white bloody brown red specks secretions and endotracheal suctioned scant amount of thick/thin brown nolan secretions. HOB elevated. Temp 99.9 axillary , cooling measure provided. Bilateral wrist restraint checked, patient with episode of pulling tubing, Encouraged patient to verbalize needs to staff, explained the importance v/s risk and benefit of restraint. placed condom cath. Blood pressure 162/98 HR 98. patient IV line intact, no s/s of infiltration. On Protonix drip at 25mls/hr. Will monitor patient for bleeding, or blood in stool. Bed alarm on. Bed locked and in low position.With Right buttock open skin per report. Will continue plan of care.
--- NOTE | 2019-02-08 19:30 | Consultation ---
DATE OF CONSULTATION: 02/08/2019 CARDIOLOGY CONSULTATION CONSULTING PHYSICIAN: Matthew Kent M.D. REFERRING PHYSICIAN: Harvey Gee M.D. REASON FOR CONSULTATION: Accelerated hypertension, respiratory failure. HISTORY OF PRESENT ILLNESS: The patient is a 69-year-old gentleman who stated he has not seen a physician for 15 years, does not take any medication, is homeless. The patient was at the bus stop and friend called 911 for generalized weakness. The patient was found to have anemia and GI bleed as well as diabetic ketoacidosis. The patient underwent EGD by Dr. Conn showed active duodenal ulcer bleed. The bleeding could not be stopped and the patient was intubated and transferred to the intensive care unit. The patient has severe lactic acidosis, DKA. REVIEW OF SYSTEMS: Cannot be obtained as the patient is currently intubated on the ventilator. PAST MEDICAL HISTORY: Unknown. FAMILY HISTORY: Negative. SOCIAL HISTORY: No history of drug use per record. PHYSICAL EXAMINATION: VITAL SIGNS: Show blood pressure of 146/85, was as high as 199/85 after came back from the GI lab, pulse is 98, respirations 20. HEAD AND NECK: He is orally intubated. No JVD. LUNGS: Decreased breath sounds. CARDIOVASCULAR: Tachycardic. S1 and S2 with no gallop. ABDOMEN: Soft. EXTREMITIES: No pitting edema. Very poor feet hygiene. LABORATORY AND DIAGNOSTIC DATA: His lab data showed white count was 34,000, currently 19.3, hemoglobin 14.9, hematocrit 43.5, and platelet count of 178. His hemoglobin initially was 12.1, dropped to 8.1, received 4 units of blood transfusion. Sodium 138, potassium 4.7, BUN of 20, creatinine 0.9, glucose of 132. Initial glucose was 405. Initial CO2 was only 14. ASSESSMENT AND PLAN: 1. Tachycardia due to diabetic ketoacidosis and acute GI bleed. There is no evidence of atrial fibrillation. Treat the patient medically at this time due to sinus tachycardia, due to the patient's diabetic ketoacidosis, and GI bleed. Treatment underlying cause. No evidence of atrial fibrillation or atrial flutter or any SVT. Heart rate actually has already improved. 2. Respiratory failure, on the ventilator. We will get an echocardiogram to evaluate for ejection fraction and wall motion abnormality. 3. Acute GI bleed, status post endoscopy by Dr. Conn that showed duodenal ulcer. Biopsy was performed. Dr. Baumann has already evaluated the patient from surgical perspective as the patient received 4 units of blood transfusion. The patient had large duodenal bulb ulcer with hemorrhage that could not be controlled endoscopically. 4. Diabetic ketoacidosis, on insulin drip. 5. Accelerated hypertension. Add standing dose of IV hydralazine. The patient is on IV labetalol as well. Thank you very much, Dr. Gee, for allowing me to participate in the care of this patient. Please do not hesitate to contact me if you have any questions regarding my evaluation. Matthew Kent M.D. DR: DONNA JOB#: [id number] CC:
[2019-02-08] MEDS: D5 1/2NS 1,000 ML IV SCH (20:07)
[2019-02-08 20:50] LABS: HEMATOCRIT 37.8 % (42.0-52.0); HEMOGLOBIN 13.7 G/DL (14.2-18.0); LYMPHOCYTES % (AUTO) 10.4 % (20.0-45.0); MEAN CORPUSCULAR VOLUME 86 FL (80-99); MONOCYTES % (AUTO) 5.2 % (1.0-10.0); NEUTROPHILS % (AUTO) 83.9 % (45.0-75.0); PLATELET COUNT 171 K/UL (150-450); RED CELL DISTRIBUTION WIDTH 12.3 % (11.6-14.8); WHITE BLOOD COUNT 18.7 K/UL (4.8-10.8)
[2019-02-08 20:51] LABS: BASOPHILS % (AUTO) 0.5 % (0.0-2.0)
--- NOTE | 2019-02-08 21:26 | NUR ---
NURSE NOTES: Patient blood pressure 170/70 hr 83 Labetalol IVP given, unable to give Clonidine tablet PRN patient is NPO and no NGT access. patient restless repositioned in bed, pillow support and talk therapy provided not effective Ativan IVP given for anxiety. Will continue to monitor patient.
--- NOTE | 2019-02-08 23:25 | NUR ---
NURSE NOTES: Repositioned. oral care provided. No s/s of acute distress noted. Temp 98.8 Axillary. Will continue plan of care.
[2019-02-09] VITALS (32 sets, daily range): BP systolic 125–177; BP diastolic 56–83
--- NOTE | 2019-02-09 01:25 | NUR ---
NURSE NOTES: Placed P200 mattress for wound management. Patient with episode of melena stool, kept clean and dry. No complain of pain or discomfort.
--- NOTE | 2019-02-09 03:00 | History and Physical Report ---
DATE OF ADMISSION: 02/08/2019 HISTORY OF PRESENT ILLNESS: The patient is admitted to intensive care unit. The patient had a large melanotic today, was on drip and had altered mental status. He was intubated. He is admitted to the hospital for sepsis and DKA, severe leukocytosis, acute renal failure as well as elevated sugar. The patient was acidotic as well and has severe lactic acidosis, was initially on insulin drip. was given in the ER and was intubated and sent to the intensive care unit. Cannot get obviously any history from the patient. The patient is intubated. PAST MEDICAL HISTORY: Apparently, the patient has a history of NIDDM, unable to obtain further history. Not much data is available in the chart. We will try to contact family. Horrible looking toenails and poor hygiene with venous stasis and the patient has not been taking care of his feet, it is obvious at this point. PAST SURGICAL HISTORY: None known. MEDICATIONS: Unable to obtain. SOCIAL HISTORY: Unable to obtain. REVIEW OF SYSTEMS: Unable to obtain. The patient is intubated. FAMILY HISTORY: Unable to obtain. PHYSICAL EXAMINATION: VITAL SIGNS: Temperature is 99.9 degrees, pulse rate 92, and blood pressure 162/98. HEENT: PERRLA. NECK: Supple. CHEST: Bibasilar rales. CARDIOVASCULAR: Regular rhythm. ABDOMEN: Soft. Positive bowel sounds. No organomegaly. EXTREMITIES: The patient has very poor hygiene and the feet and toenails are horrible looking with venous stasis, very poor hygiene, disheveled. Dorsal pedis pulses are present, unable to get history. The patient is on a drip sedation. LABORATORY DATA: WBC of 34, hemoglobin of 12, and platelets of 307,000. Sodium 130, potassium 4.7, and glucose of 132. ASSESSMENT AND PLAN: Initially, the patient was in diabetic ketoacidosis, gastrointestinal bleed, acute renal failure, acidosis, rule out sepsis, electrolyte imbalance. I have asked Dr. Phan, Dr. Wellington, Dr. Cruz, Dr. Conn, Dr. Fazal Basilio, Dr. Kent, and Dr. Gallagher to see the patient for the above-mentioned diagnoses and treatment. Harvey Gee M.D. DR: Clarence JOB#: [id number] CC:
--- NOTE | 2019-02-09 03:00 | NUR ---
NURSE NOTES: Bed bath given. Patient with episode of dark loose stool, kept clean and dry. Turned and repositioned. no s/s of hypo/hyperglycemia. HGB 13.7 on 02/08 at 2014. Frequent visual checks continued.
--- NOTE | 2019-02-09 03:00 | Procedure Note ---
DATE OF PROCEDURE: 02/08/2019 SURGEON: Kj Conn M.D. PROCEDURE: Upper endoscopy with hemostasis and biopsy. ANESTHESIA: Per Dr. Sullivan. INSTRUMENT: Olympus adult flexible upper endoscope. INDICATION: Upper GI bleeding. REASON FOR PROCEDURE: The procedure, risks, benefits, and possible consequences, including hemorrhage, aspiration, perforation and infection, and alternative treatments, were explained to the patient/legal guardian by Dr. Kj Conn and the patient/legal guardian understood and accepted these risks. PROCEDURE IN DETAIL: After informed consent was obtained and the patient was adequately sedated, Olympus upper endoscope was advanced from the mouth into second portion of duodenum and retroflexion was performed in the stomach. The patient has evidence of very large ulcer in the duodenal bulb anterior lateral wall with a very large visible vessel. This is most probably the source of bleeding. We biopsied the antrum to rule out H. pylori infection. Then, we started our hemostasis procedure. First we injected epinephrine 1:10,000 dilution using technique. We injected about 5 mL of epinephrine 1:10,000 dilution around this ulcer. Then, we started using a Gold Probe cauterization, slowly trying to cut through this vessel and avoid bleeding, but unfortunately all of a sudden and started bleeding , so we went back again, tried to find it again and tried to clip it, but there was so much bleeding that we could not see the ulcer anymore . At this time, we decided to stop the procedure and called Dr. Baumann, Surgery for consultation. Kj Conn M.D. DR: MELLISSA JOB#: [id number] CC:
[2019-02-09] MEDS: Labetalol 5mg/ml 20ml vial IV PRN ×2 (03:15→20:07)
--- NOTE | 2019-02-09 03:17 | NUR ---
NURSE NOTES: Patient blood pressure 163/61 hr 74 Labetalol IVP given, will continue to monitor.
--- NOTE | 2019-02-09 03:22 | NUR ---
NURSE NOTES: Rechecked Blood pressure 129/60 HR75. No s/s of acute distress noted.
[2019-02-09 05:37] LABS: BASOPHILS % (AUTO) 0.4 % (0.0-2.0); EOSINOPHILS % (AUTO) 0.2 % (0.0-3.0); HEMATOCRIT 38.6 % (42.0-52.0); HEMOGLOBIN 13.3 G/DL (14.2-18.0); LYMPHOCYTES % (AUTO) 13.5 % (20.0-45.0); MEAN CORPUSCULAR VOLUME 91 FL (80-99); MONOCYTES % (AUTO) 6.4 % (1.0-10.0); NEUTROPHILS % (AUTO) 79.5 % (45.0-75.0); PLATELET COUNT 166 K/UL (150-450); RED BLOOD COUNT 4.26 M/UL (4.70-6.10); RED CELL DISTRIBUTION WIDTH 13.5 % (11.6-14.8); WHITE BLOOD COUNT 15.6 K/UL (4.8-10.8)
[2019-02-09 05:46] LABS: INR 1.2 (0.9-1.1)
--- NOTE | 2019-02-09 06:04 | NUR ---
NURSE NOTES: Dr Conn called and updated regarding the patient condition
[2019-02-09 06:20] LABS: ALANINE AMINOTRANSFERASE 194 U/L (12-78); ALBUMIN 2.3 G/DL (3.4-5.0); ALBUMIN/GLOBULIN RATIO 0.9 (1.0-2.7); ALKALINE PHOSPHATASE 43 U/L (46-116); ANION GAP 7 mmol/L (5-15); ASPARTATE AMINO TRANSFERASE 996 U/L (15-37); BILIRUBIN,TOTAL 2.5 MG/DL (0.2-1.0); BLOOD UREA NITROGEN 11 mg/dL (7-18); CALCIUM 7.9 MG/DL (8.5-10.1); CARBON DIOXIDE 23 MMOL/L (21-32); CHLORIDE 110 MMOL/L (98-107); CREATININE 0.7 MG/DL (0.55-1.30); PHOSPHORUS 2.2 MG/DL (2.5-4.9); POTASSIUM 3.9 MMOL/L (3.5-5.1); SODIUM 140 MMOL/L (136-145)
[2019-02-09] MEDS: Piperacillin/Tazobactam 3.375 GM in NS 110 ML IVPB SCH ×3 (06:22→21:28)
[2019-02-09] MEDS: Enalaprilat 2.5mg/2ml Inj IV SCH ×3 (06:23→18:40)
[2019-02-09] MEDS: NovoLOG Insulin Flexpen SUBQ SCH ×3 (06:25→18:43)
--- NOTE | 2019-02-09 06:36 | General Progress Note ---
Assessment/Plan Problem List: (1) Sepsis ICD Codes: A41.9 - Sepsis, unspecified organism SNOMED: 32402286, 60408733 Qualifiers: Qualified Codes: A41.9 - Sepsis, unspecified organism; R65.20 - Severe sepsis without septic shock; N17.9 - Acute kidney failure, unspecified (2) Sinus tachycardia ICD Codes: R00.0 - Tachycardia, unspecified SNOMED: 23748582 (3) ARF (acute renal failure) ICD Codes: N17.9 - Acute kidney failure, unspecified SNOMED: 84602674 Qualifiers: Qualified Codes: N17.9 - Acute kidney failure, unspecified (4) Lactic acidosis ICD Codes: E87.2 - Acidosis SNOMED: 29415994, 70365667 (5) Esophageal varices ICD Codes: I85.00 - Esophageal varices without bleeding SNOMED: 56908242 Assessment/Plan: no need for insulin gtt continue Novolog sliding scale no need for basal insulin for now Subjective ROS Limited/Unobtainable: Yes Allergies: Coded Allergies: No Known Allergies (Unverified , 02/07/19) Subjective events noted glucose improved Item Value Date Time Bedside Blood Glucose 173 mg/dl H 02/09/19 0625 Bedside Blood Glucose 182 mg/dl H 02/08/19 2349 Bedside Blood Glucose 163 mg/dl H 02/08/19 1800 Bedside Blood Glucose 261 mg/dl H 02/08/19 0302 Bedside Blood Glucose 238 mg/dl H 02/08/19 0154 Objective Last 24 Hour Vital Signs Date Time Temp Pulse Resp B/P (MAP) Pulse Ox O2 Delivery O2 Flow Rate FiO2 02/09/19 06:23 159/58 02/09/19 05:10 80 18 30 02/09/19 05:00 90 20 165/64 (97) 100 02/09/19 04:30 76 18 148/64 (92) 100 02/09/19 04:00 Mechanical Ventilator 02/09/19 04:00 98.4 72 18 147/56 (86) 100 02/09/19 03:30 76 18 125/59 (81) 100 02/09/19 03:15 76 163/61 02/09/19 03:14 86 21 129/60 (83) 95 02/09/19 03:00 75 19 163/61 (95) 100 02/09/19 02:56 79 24 30 02/09/19 02:30 88 19 177/75 (109) 100 02/09/19 02:25 84 20 166/60 (95) 100 02/09/19 02:00 81 24 163/58 (93) 100 02/09/19 01:00 86 22 149/68 (95) 100 02/09/19 00:55 83 22 30 02/09/19 00:30 80 21 146/65 (92) 100 02/09/19 00:00 98.6 79 18 159/60 (93) 100 02/09/19 00:00 Mechanical Ventilator 02/09/19 00:00 81 02/08/19 23:49 162/76 02/08/19 23:30 90 21 162/76 (104) 100 02/08/19 23:15 79 19 30 02/08/19 23:00 84 19 161/65 (97) 100 02/08/19 22:30 82 18 149/68 (95) 100 02/08/19 22:00 82 20 145/68 (93) 100 02/08/19 21:30 89 28 145/64 (91) 100 02/08/19 21:21 89 170/70 02/08/19 21:00 89 20 170/70 (103) 100 02/08/19 20:59 84 20 30 02/08/19 20:21 92 22 161/74 (103) 99 02/08/19 20:00 99.9 95 23 162/98 (119) 100 02/08/19 20:00 Mechanical Ventilator 02/08/19 19:29 96 02/08/19 19:00 90 22 30 02/08/19 19:00 103 21 163/75 (104) 99 02/08/19 18:00 89 24 160/71 (100) 100 02/08/19 17:45 149/75 02/08/19 17:30 30 02/08/19 17:10 100 28 40 02/08/19 17:00 87 27 149/75 (99) 100 02/08/19 16:03 90 27 40 02/08/19 16:00 Mechanical Ventilator 02/08/19 16:00 98.2 92 29 146/86 (106) 100 02/08/19 16:00 93 02/08/19 15:00 98 29 146/85 (105) 100 02/08/19 14:30 102 27 50 02/08/19 14:30 101 26 162/86 (111) 100 02/08/19 14:20 70 02/08/19 14:00 98.0 114 30 199/85 (123) 100 02/08/19 13:53 111 13 163/97 (119) 100 02/08/19 13:43 120 183/115 02/08/19 13:30 117 20 183/115 (137) 100 02/08/19 13:20 129 14 100 Mechanical Ventilator 100 02/08/19 13:20 129 14 100 02/08/19 12:00 Room Air 02/08/19 12:00 117 02/08/19 12:00 98.0 114 30 199/85 (123) 100 02/08/19 11:00 124 24 177/86 (116) 100 02/08/19 10:00 112 29 160/84 (109) 100 02/08/19 09:00 119 20 119/77 (91) 100 02/08/19 08:00 98.1 120 25 111/80 (90) 100 02/08/19 08:00 112 02/08/19 08:00 Room Air 02/08/19 07:40 97.8 121 24 168/101 100 Nasal Cannula 3.0 02/08/19 07:40 97.8 121 24 168/101 100 Nasal Cannula 3.0 02/08/19 07:00 97.6 119 26 02/08/19 06:55 97.6 118 25 02/08/19 06:45 98.0 135 27 02/08/19 06:40 98.3 132 24 02/08/19 06:35 98.3 127 33 Intake and Output 02/08/19 02/09/19 18:59 06:59 Intake Total 1710.50 ml 719.0 ml Output Total 950 ml 630 ml Balance 760.50 ml 89.0 ml Intake IV Total 1210.50 ml 719.0 ml Blood Product 500 ml Output Urine Total 950 ml 630 ml # Voids 9 1 # Bowel Movements 11 5 Laboratory Tests 02/08/19 08:40: White Blood Count 20.5H, Red Blood Count 5.27, Hemoglobin 16.0#, Hematocrit 47.3 #, Mean Corpuscular Volume 90, Mean Corpuscular Hemoglobin 30.5, Mean Corpuscular Hemoglobin Concent 33.9, Red Cell Distribution Width 12.6, Platelet Count 166, Mean Platelet Volume 5.6L, Neutrophils (%) (Auto) , Lymphocytes (%) ( Auto) , Monocytes (%) (Auto) , Eosinophils (%) (Auto) , Basophils (%) (Auto) , Differential Total Cells Counted 100, Neutrophils % (Manual) 89H, Lymphocytes % (Manual) 8L, Monocytes % (Manual) 3, Eosinophils % (Manual) 0, Basophils % ( Manual) 0, Band Neutrophils 0, Platelet Estimate Adequate, Platelet Morphology Normal, Red Blood Cell Morphology Normal, Sodium Level 138, Potassium Level 4.7 , Chloride Level 110H, Carbon Dioxide Level 20L, Anion Gap 8, Blood Urea Nitrogen 23H, Creatinine 0.9, Estimat Glomerular Filtration Rate , Glucose Level 132H, Hemoglobin A1c 6.7H, Lactic Acid Level 3.00H, Uric Acid 5.3, Calcium Level 6.8L, Phosphorus Level 3.5, Magnesium Level 2.4, Iron Level 79, Total Iron Binding Capacity 194L, Percent Iron Saturation 41, Unsaturated Iron Binding 115, Ferritin 423H, Total Bilirubin 1.6H, Direct Bilirubin 0.3, Aspartate Amino Transf (AST/SGOT) 376H, Alanine Aminotransferase (ALT/SGPT) 95H , Alkaline Phosphatase 43L, Total Protein 5.9L, Albumin 2.8L, Globulin 3.1, Albumin/Globulin Ratio 0.9L, Triglycerides Level 65, Cholesterol Level 86, LDL Cholesterol 40, HDL Cholesterol 35L, Cholesterol/HDL Ratio 2.5L, Lipase 67L, Vitamin B12 Level 671, Folate 11.9, Acetone Level Negative 02/08/19 11:30: Lactic Acid Level 1.80 02/08/19 14:05: Arterial Blood pH 7.291L, Arterial Blood Partial Pressure CO2 38.3, Arterial Blood Partial Pressure O2 323.1H, Arterial Blood HCO3 18.0L, Arterial Blood Oxygen Saturation 99.4, Arterial Blood Base Excess -7.9L, Uvaldo Test Positive 02/08/19 14:15: White Blood Count 19.3H, Red Blood Count 4.83, Hemoglobin 14.9, Hematocrit 43.5 , Mean Corpuscular Volume 90, Mean Corpuscular Hemoglobin 30.9, Mean Corpuscular Hemoglobin Concent 34.3, Red Cell Distribution Width 13.0, Platelet Count 178, Mean Platelet Volume 5.5L, Neutrophils (%) (Auto) , Lymphocytes (%) ( Auto) , Monocytes (%) (Auto) , Eosinophils (%) (Auto) , Basophils (%) (Auto) , Differential Total Cells Counted 100, Neutrophils % (Manual) 88H, Lymphocytes % (Manual) 6L, Monocytes % (Manual) 4, Eosinophils % (Manual) 0, Basophils % ( Manual) 0, Band Neutrophils 2, Platelet Estimate Adequate, Platelet Morphology Normal, Red Blood Cell Morphology Normal 02/08/19 17:12: Arterial Blood pH 7.412, Arterial Blood Partial Pressure CO2 28.6L, Arterial Blood Partial Pressure O2 157.3H, Arterial Blood HCO3 17.8*L, Arterial Blood Oxygen Saturation 98.8, Arterial Blood Base Excess -5.3L, Uvaldo Test Positive 02/08/19 20:15: White Blood Count 18.7H, Red Blood Count 4.40L, Hemoglobin 13.7L, Hematocrit 37.8L, Mean Corpuscular Volume 86, Mean Corpuscular Hemoglobin 31.2H, Mean Corpuscular Hemoglobin Concent 36.3H, Red Cell Distribution Width 12.3, Platelet Count 171, Mean Platelet Volume 5.9L, Neutrophils (%) (Auto) 83.9H, Lymphocytes (%) (Auto) 10.4L, Monocytes (%) (Auto) 5.2, Eosinophils (%) (Auto) 0.0, Basophils (%) (Auto) 0.5 02/09/19 04:13: White Blood Count 15.6H, Red Blood Count 4.26L, Hemoglobin 13.3L, Hematocrit 38.6L, Mean Corpuscular Volume 91, Mean Corpuscular Hemoglobin 31.2H, Mean Corpuscular Hemoglobin Concent 34.5, Red Cell Distribution Width 13.5, Platelet Count 166, Mean Platelet Volume 5.4L, Neutrophils (%) (Auto) 79.5H, Lymphocytes (%) (Auto) 13.5L, Monocytes (%) (Auto) 6.4, Eosinophils (%) (Auto) 0.2, Basophils (%) (Auto) 0.4, Erythrocyte Sedimentation Rate [Pending], Prothrombin Time 13.1H, Prothromb Time International Ratio 1.2H, Activated Partial Thromboplast Time 31, Sodium Level 140, Potassium Level 3.9, Chloride Level 110H , Carbon Dioxide Level 23, Anion Gap 7, Blood Urea Nitrogen 11, Creatinine 0.7, Estimat Glomerular Filtration Rate , Glucose Level 144H, Lactic Acid Level 2.80H , Uric Acid [Pending], Calcium Level 7.9L, Phosphorus Level 2.2L, Magnesium Level [Pending], Total Bilirubin 2.5H, Direct Bilirubin 1.0H, Aspartate Amino Transf (AST/SGOT) 996H, Alanine Aminotransferase (ALT/SGPT) 194H, Alkaline Phosphatase 43L, Troponin I 0.331H, C-Reactive Protein, Quantitative 29.3H, Total Protein 4.8L, Albumin 2.3L, Globulin 2.5, Albumin/Globulin Ratio 0.9L, Amylase Level 116H, Lipase 33L Height (Feet): 5 Height (Inches): 5.00 Weight (Pounds): 140 General Appearance: severe distress Neck: normal alignment Cardiovascular: tachycardia Respiratory/Chest: decreased breath sounds Abdomen: normal bowel sounds Pelvis: normal external exam Objective Current Medications Medications (Trade) Dose Ordered Sig/Manish Route PRN Reason Start Time Stop Time Status Last Admin Dose Admin Acetaminophen (Tylenol) 650 mg Q6H PRN ORAL Mild Pain/Temp > 100.5 02/08/19 09:00 03/10/19 08:59 Clonidine HCl (Catapres Tab) 0.1 mg Q4H PRN ORAL bp over 165 syst 02/08/19 11:45 03/10/19 11:44 Clotrimazole (Lotrimin) 1 applic THREE TIMES A DAY TOPIC 02/08/19 18:00 03/10/19 17:59 02/08/19 18:34 Dextrose (Dextrose 50%) 25 ml Q30M PRN IV Hypoglycemia 02/08/19 09:00 03/10/19 08:59 Dextrose (Dextrose 50%) 50 ml Q30M PRN IV Hypoglycemia 02/08/19 09:00 03/10/19 08:59 Dextrose/Sodium Chloride 1,000 ml @ 40 mls/hr Q24H IV 02/08/19 19:15 03/10/19 19:14 02/08/19 20:07 Enalaprilat (Vasotec) 2.5 mg EVERY 6 HOURS IV 02/08/19 18:00 03/10/19 17:59 02/09/19 06:23 Fentanyl Citrate 1000 mcg/Sodium Chloride 100 ml @ 0 mls/hr Q24H IV 02/08/19 19:32 02/15/19 19:31 Insulin Aspart (NovoLOG) Q6HR SUBQ 02/08/19 12:00 03/10/19 11:59 02/09/19 06:25 Labetalol HCl (Normodyne) 20 mg Q4H PRN IV SBP>150 02/08/19 13:22 03/10/19 13:21 02/09/19 03:15 Lorazepam (Ativan 2mg/ml 1ml) 1 mg Q4H PRN IV For Anxiety 02/08/19 12:00 02/15/19 11:59 02/08/19 21:21 Pantoprazole 80 mg/Sodium Chloride 250 ml @ 25 mls/hr Q10H IV 02/08/19 12:00 03/10/19 11:59 02/08/19 22:13 Piperacillin Sod/ Tazobactam Sod 3.375 gm/Sodium Chloride 110 ml @ 27.5 mls/hr EVERY 8 HOURS IVPB 02/08/19 12:00 02/13/19 11:59 02/09/19 06:22 Thiamine HCl 100 mg/Dextrose 56 ml @ 112 mls/hr Q24H IVPB 02/08/19 13:00 03/10/19 12:59 02/08/19 13:30 Jt Wellington MD Feb 09, 2019 06:36
--- NOTE | 2019-02-09 07:10 | NUR ---
HAND-OFF: Report given to Ankur ALEGRIA.Patient troponin 0.331 endorsed to follow up with
--- NOTE | 2019-02-09 07:15 | Consultation ---
DATE OF CONSULTATION: 02/08/2019 ENDOCRINOLOGY CONSULTATION CONSULTING PHYSICIAN: Jt Wellington M.D. The patient is in emergency room. It is important to note that history is obtained from review of the chart and medical records since the patient is intubated. HISTORY OF PRESENT ILLNESS: This is a 69-year-old male with unknown past medical history and homeless. [place] A friend called 911 for generalized weakness, brought to the emergency room, found to be in a gap acidosis, elevated sugar, a combination of severe lactic and DKA. The patient will be admitted to the floor with IV fluid, IV insulin, and respiratory support. REVIEW OF SYSTEMS: Unobtainable. PAST MEDICAL HISTORY: Unknown. PAST SURGICAL HISTORY: Unknown. FAMILY HISTORY: Unobtainable. SOCIAL HISTORY: Unobtainable. PHYSICAL EXAMINATION: GENERAL: The patient is orally intubated. VITAL SIGNS: Blood pressure 140/80, pulse 70, temperature 99, respirations 18. HEENT: Orally intubated. LUNGS: Crackles. ABDOMEN: Positive bowel sounds. HEART: Tachy. EXTREMITIES: No clubbing, cyanosis, or edema, but poor hygiene. LABORATORY DATA: WBC 20, hemoglobin 16, hematocrit 47, platelets of 100. Sodium 137, potassium 4.8, chloride 105, bicarb 14, BUN 35, creatinine 1.7, glucose 329. Lactic acid 24. Hemoglobin A1c 6.7. Thyroid function is normal. DIAGNOSES: 1. Lactic acidosis. 2. Sepsis. 3. Respiratory failure. PLAN: 1. Continue ICU care. 2. Respiratory care and vent support. 3. No need for insulin drip. Continue sliding scale insulin with NovoLog. 4. Basal insulin will be added if needed. 5. I will follow the patient closely during the hospital stay. Thank you Dr. Gee for the courtesy of this consultation. Jt Wellington M.D. DR: OZ JOB#: [id number] CC: JAMES
--- NOTE | 2019-02-09 07:18 | NUR ---
RESPIRATORY NOTE: received pt orally intubated with ETT 7.5, placed 22cm at the lip. ETT secured via anchor fast with no redness visible on facial area. pt on current vent settings with no signs of resp distress at this time. alarms are set and audible with ambu bag at bedside. will attempt to wean later today and cont to monitor
--- NOTE | 2019-02-09 07:30 | NUR ---
NURSE NOTES: Received report from Aleja ALEGRIA. Patient awake, on ETT 7.5/22cm lip line vent with current settings: AC 18, VT 500, Fi02 30%, peep 5, saturation at 100%. No acute distress distress noted. Bilateral rhonchi. orally suction moderate amounts of thick brown secretions. abdomen distended. Bm remain melanini. HOB elevated. Temp 98.9 axillary , cooling measure provided. Bilateral wrist restraint checked. condom cath draining dark ashlee urine. patient IV line intact, no s/s of infiltration. On Protonix drip at 25mls/hr. Will monitor patient for bleeding. Bed alarm on. Bed locked and in low position. skin -see assessment. Will continue plan of care.
--- NOTE | 2019-02-09 09:11 | GI Progress Note ---
Assessment/Plan Problems: (1) GIB (gastrointestinal bleeding) ICD Codes: K92.2 - Gastrointestinal hemorrhage, unspecified SNOMED: 09823989 (2) DKA (diabetic ketoacidoses) ICD Codes: E11.10 - Type 2 diabetes mellitus with ketoacidosis without coma SNOMED: 421864747, 81469034 Qualifiers: Qualified Codes: E13.10 - Other specified diabetes mellitus with ketoacidosis without coma (3) Lactic acidosis ICD Codes: E87.2 - Acidosis SNOMED: 60949134, 40807379 (4) Dehydration ICD Codes: E86.0 - Dehydration SNOMED: 09803422, 95400895 (5) Sepsis ICD Codes: A41.9 - Sepsis, unspecified organism SNOMED: 90537599, 62135305 Qualifiers: Qualified Codes: A41.9 - Sepsis, unspecified organism; R65.20 - Severe sepsis without septic shock; N17.9 - Acute kidney failure, unspecified Status: unchanged Status Narrative Discussed with Dr. Conn. Assessment/Plan s/p EGD with large duodenal ulcer with failed hemostasis surgery consulted monitor H&H, prn transfusion ppi gtt respiratory support follow up biopsy and treat accordingly will need colonoscopy at future date The patient was seen and examined at bedside and all new and available data was reviewed in the patients chart. I agree with the above findings, impression and plan. (Patient seen earlier today. Signature stamp does not reflect patient encounter time.). - Kj Conn MD Subjective Subjective limited Objective Last 24 Hour Vital Signs Date Time Temp Pulse Resp B/P (MAP) Pulse Ox O2 Delivery O2 Flow Rate FiO2 02/09/19 09:00 88 18 30 02/09/19 07:30 85 18 139/64 (89) 100 02/09/19 07:17 79 18 30 02/09/19 07:00 83 18 148/65 (92) 100 02/09/19 06:30 79 19 156/60 (92) 100 02/09/19 06:23 159/58 02/09/19 06:00 89 20 159/58 (91) 100 02/09/19 05:10 80 18 30 02/09/19 05:00 90 20 165/64 (97) 100 02/09/19 04:30 76 18 148/64 (92) 100 02/09/19 04:00 Mechanical Ventilator 02/09/19 04:00 98.4 72 18 147/56 (86) 100 02/09/19 03:30 76 18 125/59 (81) 100 02/09/19 03:15 76 163/61 02/09/19 03:14 86 21 129/60 (83) 95 02/09/19 03:00 75 19 163/61 (95) 100 02/09/19 02:56 79 24 30 02/09/19 02:30 88 19 177/75 (109) 100 02/09/19 02:25 84 20 166/60 (95) 100 02/09/19 02:00 81 24 163/58 (93) 100 02/09/19 01:00 86 22 149/68 (95) 100 02/09/19 00:55 83 22 30 02/09/19 00:30 80 21 146/65 (92) 100 02/09/19 00:00 98.6 79 18 159/60 (93) 100 02/09/19 00:00 Mechanical Ventilator 02/09/19 00:00 81 02/08/19 23:49 162/76 02/08/19 23:30 90 21 162/76 (104) 100 02/08/19 23:15 79 19 30 02/08/19 23:00 84 19 161/65 (97) 100 02/08/19 22:30 82 18 149/68 (95) 100 02/08/19 22:00 82 20 145/68 (93) 100 02/08/19 21:30 89 28 145/64 (91) 100 02/08/19 21:21 89 170/70 02/08/19 21:00 89 20 170/70 (103) 100 02/08/19 20:59 84 20 30 02/08/19 20:21 92 22 161/74 (103) 99 02/08/19 20:00 99.9 95 23 162/98 (119) 100 02/08/19 20:00 Mechanical Ventilator 02/08/19 19:29 96 02/08/19 19:00 90 22 30 02/08/19 19:00 103 21 163/75 (104) 99 02/08/19 18:00 89 24 160/71 (100) 100 02/08/19 17:45 149/75 02/08/19 17:30 30 02/08/19 17:10 100 28 40 02/08/19 17:00 87 27 149/75 (99) 100 02/08/19 16:03 90 27 40 02/08/19 16:00 Mechanical Ventilator 02/08/19 16:00 98.2 92 29 146/86 (106) 100 02/08/19 16:00 93 02/08/19 15:00 98 29 146/85 (105) 100 02/08/19 14:30 102 27 50 02/08/19 14:30 101 26 162/86 (111) 100 02/08/19 14:20 70 02/08/19 14:00 98.0 114 30 199/85 (123) 100 02/08/19 13:53 111 13 163/97 (119) 100 02/08/19 13:43 120 183/115 02/08/19 13:30 117 20 183/115 (137) 100 02/08/19 13:20 129 14 100 Mechanical Ventilator 100 02/08/19 13:20 129 14 100 02/08/19 12:00 Room Air 02/08/19 12:00 117 02/08/19 12:00 98.0 114 30 199/85 (123) 100 02/08/19 11:00 124 24 177/86 (116) 100 02/08/19 10:00 112 29 160/84 (109) 100 Intake and Output 02/08/19 02/09/19 18:59 06:59 Intake Total 1710.50 ml 784.0 ml Output Total 950 ml 545 ml Balance 760.50 ml 239.0 ml Intake IV Total 1210.50 ml 784.0 ml Blood Product 500 ml Output Urine Total 950 ml 545 ml # Voids 9 1 # Bowel Movements 11 6 Laboratory Tests Test 02/08/19 11:30 02/08/19 14:05 02/08/19 14:15 02/08/19 17:12 Lactic Acid Level 1.80 mmol/L (0.66-2.22) Arterial Blood pH 7.291 (7.350-7.450) 7.412 (7.350-7.450) Arterial Blood Partial Pressure CO2 38.3 mmHg (35.0-45.0) 28.6 mmHg (35.0-45.0) L Arterial Blood Partial Pressure O2 323.1 mmHg (75.0-100.0) H 157.3 mmHg (75.0-100.0) H Arterial Blood HCO3 18.0 mmol/L (22.0-26.0) L 17.8 mmol/L (22.0-26.0) *L Arterial Blood Oxygen Saturation 99.4 % (95-100) 98.8 % (95-100) Arterial Blood Base Excess -7.9 (-2-2) L -5.3 (-2-2) L Uvaldo Test Positive Positive White Blood Count 19.3 K/UL (4.8-10.8) H Red Blood Count 4.83 M/UL (4.70-6.10) Hemoglobin 14.9 G/DL (14.2-18.0) Hematocrit 43.5 % (42.0-52.0) Mean Corpuscular Volume 90 FL (80-99) Mean Corpuscular Hemoglobin 30.9 PG (27.0-31.0) Mean Corpuscular Hemoglobin Concent 34.3 G/DL (32.0-36.0) Red Cell Distribution Width 13.0 % (11.6-14.8) Platelet Count 178 K/UL (150-450) Mean Platelet Volume 5.5 FL (6.5-10.1) L Neutrophils (%) (Auto) % (45.0-75.0) Lymphocytes (%) (Auto) % (20.0-45.0) Monocytes (%) (Auto) % (1.0-10.0) Eosinophils (%) (Auto) % (0.0-3.0) Basophils (%) (Auto) % (0.0-2.0) Differential Total Cells Counted 100 Neutrophils % (Manual) 88 % (45-75) H Lymphocytes % (Manual) 6 % (20-45) L Monocytes % (Manual) 4 % (1-10) Eosinophils % (Manual) 0 % (0-3) Basophils % (Manual) 0 % (0-2) Band Neutrophils 2 % (0-8) Platelet Estimate Adequate Platelet Morphology Normal Red Blood Cell Morphology Normal Test 02/08/19 20:15 02/09/19 04:13 White Blood Count 18.7 K/UL (4.8-10.8) H 15.6 K/UL (4.8-10.8) H Red Blood Count 4.40 M/UL (4.70-6.10) L 4.26 M/UL (4.70-6.10) L Hemoglobin 13.7 G/DL (14.2-18.0) L 13.3 G/DL (14.2-18.0) L Hematocrit 37.8 % (42.0-52.0) L 38.6 % (42.0-52.0) L Mean Corpuscular Volume 86 FL (80-99) 91 FL (80-99) Mean Corpuscular Hemoglobin 31.2 PG (27.0-31.0) H 31.2 PG (27.0-31.0) H Mean Corpuscular Hemoglobin Concent 36.3 G/DL (32.0-36.0) H 34.5 G/DL (32.0-36.0) Red Cell Distribution Width 12.3 % (11.6-14.8) 13.5 % (11.6-14.8) Platelet Count 171 K/UL (150-450) 166 K/UL (150-450) Mean Platelet Volume 5.9 FL (6.5-10.1) L 5.4 FL (6.5-10.1) L Neutrophils (%) (Auto) 83.9 % (45.0-75.0) H 79.5 % (45.0-75.0) H Lymphocytes (%) (Auto) 10.4 % (20.0-45.0) L 13.5 % (20.0-45.0) L Monocytes (%) (Auto) 5.2 % (1.0-10.0) 6.4 % (1.0-10.0) Eosinophils (%) (Auto) 0.0 % (0.0-3.0) 0.2 % (0.0-3.0) Basophils (%) (Auto) 0.5 % (0.0-2.0) 0.4 % (0.0-2.0) Erythrocyte Sedimentation Rate 17 MM/HR (0-20) Prothrombin Time 13.1 SEC (9.30-11.50) H Prothromb Time International Ratio 1.2 (0.9-1.1) H Activated Partial Thromboplast Time 31 SEC (23-33) Sodium Level 140 MMOL/L (136-145) Potassium Level 3.9 MMOL/L (3.5-5.1) Chloride Level 110 MMOL/L (98-107) H Carbon Dioxide Level 23 MMOL/L (21-32) Anion Gap 7 mmol/L (5-15) Blood Urea Nitrogen 11 mg/dL (7-18) Creatinine 0.7 MG/DL (0.55-1.30) Estimat Glomerular Filtration Rate mL/min (>60) Glucose Level 144 MG/DL (74-106) H Lactic Acid Level 2.80 mmol/L (0.4-2.0) H Uric Acid 2.8 MG/DL (2.6-7.2) Calcium Level 7.9 MG/DL (8.5-10.1) L Phosphorus Level 2.2 MG/DL (2.5-4.9) L Magnesium Level 2.0 MG/DL (1.8-2.4) Total Bilirubin 2.5 MG/DL (0.2-1.0) H Direct Bilirubin 1.0 MG/DL (0.0-0.3) H Aspartate Amino Transf (AST/SGOT) 996 U/L (15-37) H Alanine Aminotransferase (ALT/SGPT) 194 U/L (12-78) H Alkaline Phosphatase 43 U/L (46-116) L Troponin I 0.331 ng/mL (0.000-0.056) C-Reactive Protein, Quantitative 29.3 mg/dL (0.00-0.90) H Total Protein 4.8 G/DL (6.4-8.2) L Albumin 2.3 G/DL (3.4-5.0) L Globulin 2.5 g/dL Albumin/Globulin Ratio 0.9 (1.0-2.7) L Amylase Level 116 U/L (25-115) H Lipase 33 U/L (73-393) L Height (Feet): 5 Height (Inches): 5.00 Weight (Pounds): 124 General Appearance: no apparent distress Cardiovascular: normal rate Respiratory/Chest: normal breath sounds, no respiratory distress, other - intubated Abdominal Exam: normal bowel sounds, non tender, soft Extremities: non-tender Milli Flaherty LEATHER SEASONER Feb 09, 2019 09:11
--- NOTE | 2019-02-09 10:00 | NUR ---
NURSE NOTES: Repositioned. oral care provided. No s/s of acute distress noted. Will continue plan of care.
[2019-02-09] MEDS: Pantoprazole 80 MG in NS 250 ML IV SCH ×2 (10:26→18:45)
[2019-02-09] MEDS ORDERED: Sodium Phosphate 15 MM in NS 275 ML IVPB ONE (10:30)
--- NOTE | 2019-02-09 10:44 | Infectious Diseases Prog Note ---
Assessment/Plan Assessment/Plan IMPRESSION: Sepsis, systemic inflammatory response syndrome, GI bleeding Duodenal ulcer. Uncontrolled DM Lactic acidosis, Acute renal failure improving. Onychomycosis and tinea pedis, anemia, received blood transfusion, Elevated transaminase level. Acute respiratory failure RECOMMENDATION: We will continue Zosyn and topical clotrimazole Follow up the culture and lab. Subjective ROS Limited/Unobtainable: Yes Respiratory: Reports: other - on weaning process Gastrointestinal/Abdominal: Reports: blood in stool Neurologic: Reports: other - on restraint Allergies: Coded Allergies: No Known Allergies (Unverified , 02/07/19) Objective Vital Signs Last 24 Hour Vital Signs Date Time Temp Pulse Resp B/P (MAP) Pulse Ox O2 Delivery O2 Flow Rate FiO2 02/09/19 09:00 88 18 30 02/09/19 07:30 85 18 139/64 (89) 100 02/09/19 07:17 79 18 30 02/09/19 07:00 83 18 148/65 (92) 100 02/09/19 06:30 79 19 156/60 (92) 100 02/09/19 06:23 159/58 02/09/19 06:00 89 20 159/58 (91) 100 02/09/19 05:10 80 18 30 02/09/19 05:00 90 20 165/64 (97) 100 02/09/19 04:30 76 18 148/64 (92) 100 02/09/19 04:00 Mechanical Ventilator 02/09/19 04:00 98.4 72 18 147/56 (86) 100 02/09/19 03:30 76 18 125/59 (81) 100 02/09/19 03:15 76 163/61 02/09/19 03:14 86 21 129/60 (83) 95 02/09/19 03:00 75 19 163/61 (95) 100 02/09/19 02:56 79 24 30 02/09/19 02:30 88 19 177/75 (109) 100 02/09/19 02:25 84 20 166/60 (95) 100 02/09/19 02:00 81 24 163/58 (93) 100 02/09/19 01:00 86 22 149/68 (95) 100 02/09/19 00:55 83 22 30 02/09/19 00:30 80 21 146/65 (92) 100 02/09/19 00:00 98.6 79 18 159/60 (93) 100 02/09/19 00:00 Mechanical Ventilator 02/09/19 00:00 81 02/08/19 23:49 162/76 02/08/19 23:30 90 21 162/76 (104) 100 02/08/19 23:15 79 19 30 02/08/19 23:00 84 19 161/65 (97) 100 02/08/19 22:30 82 18 149/68 (95) 100 02/08/19 22:00 82 20 145/68 (93) 100 02/08/19 21:30 89 28 145/64 (91) 100 02/08/19 21:21 89 170/70 02/08/19 21:00 89 20 170/70 (103) 100 02/08/19 20:59 84 20 30 02/08/19 20:21 92 22 161/74 (103) 99 02/08/19 20:00 99.9 95 23 162/98 (119) 100 02/08/19 20:00 Mechanical Ventilator 02/08/19 19:29 96 02/08/19 19:00 90 22 30 02/08/19 19:00 103 21 163/75 (104) 99 02/08/19 18:00 89 24 160/71 (100) 100 02/08/19 17:45 149/75 02/08/19 17:30 30 02/08/19 17:10 100 28 40 02/08/19 17:00 87 27 149/75 (99) 100 02/08/19 16:03 90 27 40 02/08/19 16:00 Mechanical Ventilator 02/08/19 16:00 98.2 92 29 146/86 (106) 100 02/08/19 16:00 93 02/08/19 15:00 98 29 146/85 (105) 100 02/08/19 14:30 102 27 50 02/08/19 14:30 101 26 162/86 (111) 100 02/08/19 14:20 70 02/08/19 14:00 98.0 114 30 199/85 (123) 100 02/08/19 13:53 111 13 163/97 (119) 100 02/08/19 13:43 120 183/115 02/08/19 13:30 117 20 183/115 (137) 100 8/21/19 13:20 129 14 100 Mechanical Ventilator 100 02/08/19 13:20 129 14 100 02/08/19 12:00 Room Air 02/08/19 12:00 117 02/08/19 12:00 98.0 114 30 199/85 (123) 100 02/08/19 11:00 124 24 177/86 (116) 100 Height (Feet): 5 Height (Inches): 5.00 Weight (Pounds): 124 General Appearance: no acute distress HEENT: mucous membranes moist, other - orally intubated Respiratory/Chest: lungs clear Abdomen: soft, non tender Extremities: no edema Skin: other - onychomycosis , Tinea pedis Neurologic/Psychiatric: alert, responsive Microbiology Date/Time Source Procedure Growth Status 02/07/19 23:17 Blood Blood Culture - Preliminary NO GROWTH AFTER 24 HOURS Resulted 02/07/19 23:02 Blood Blood Culture - Preliminary NO GROWTH AFTER 24 HOURS Resulted 02/08/19 00:56 Rectum Received Laboratory Tests Test 02/08/19 11:30 02/08/19 14:05 02/08/19 14:15 02/08/19 17:12 Lactic Acid Level 1.80 mmol/L (0.66-2.22) Arterial Blood pH 7.291 (7.350-7.450) 7.412 (7.350-7.450) Arterial Blood Partial Pressure CO2 38.3 mmHg (35.0-45.0) 28.6 mmHg (35.0-45.0) L Arterial Blood Partial Pressure O2 323.1 mmHg (75.0-100.0) H 157.3 mmHg (75.0-100.0) H Arterial Blood HCO3 18.0 mmol/L (22.0-26.0) L 17.8 mmol/L (22.0-26.0) *L Arterial Blood Oxygen Saturation 99.4 % (95-100) 98.8 % (95-100) Arterial Blood Base Excess -7.9 (-2-2) L -5.3 (-2-2) L Uvaldo Test Positive Positive White Blood Count 19.3 K/UL (4.8-10.8) H Red Blood Count 4.83 M/UL (4.70-6.10) Hemoglobin 14.9 G/DL (14.2-18.0) Hematocrit 43.5 % (42.0-52.0) Mean Corpuscular Volume 90 FL (80-99) Mean Corpuscular Hemoglobin 30.9 PG (27.0-31.0) Mean Corpuscular Hemoglobin Concent 34.3 G/DL (32.0-36.0) Red Cell Distribution Width 13.0 % (11.6-14.8) Platelet Count 178 K/UL (150-450) Mean Platelet Volume 5.5 FL (6.5-10.1) L Neutrophils (%) (Auto) % (45.0-75.0) Lymphocytes (%) (Auto) % (20.0-45.0) Monocytes (%) (Auto) % (1.0-10.0) Eosinophils (%) (Auto) % (0.0-3.0) Basophils (%) (Auto) % (0.0-2.0) Differential Total Cells Counted 100 Neutrophils % (Manual) 88 % (45-75) H Lymphocytes % (Manual) 6 % (20-45) L Monocytes % (Manual) 4 % (1-10) Eosinophils % (Manual) 0 % (0-3) Basophils % (Manual) 0 % (0-2) Band Neutrophils 2 % (0-8) Platelet Estimate Adequate Platelet Morphology Normal Red Blood Cell Morphology Normal Test 02/08/19 20:15 02/09/19 04:13 02/09/19 08:00 White Blood Count 18.7 K/UL (4.8-10.8) H 15.6 K/UL (4.8-10.8) H Red Blood Count 4.40 M/UL (4.70-6.10) L 4.26 M/UL (4.70-6.10) L Hemoglobin 13.7 G/DL (14.2-18.0) L 13.3 G/DL (14.2-18.0) L Hematocrit 37.8 % (42.0-52.0) L 38.6 % (42.0-52.0) L Mean Corpuscular Volume 86 FL (80-99) 91 FL (80-99) Mean Corpuscular Hemoglobin 31.2 PG (27.0-31.0) H 31.2 PG (27.0-31.0) H Mean Corpuscular Hemoglobin Concent 36.3 G/DL (32.0-36.0) H 34.5 G/DL (32.0-36.0) Red Cell Distribution Width 12.3 % (11.6-14.8) 13.5 % (11.6-14.8) Platelet Count 171 K/UL (150-450) 166 K/UL (150-450) Mean Platelet Volume 5.9 FL (6.5-10.1) L 5.4 FL (6.5-10.1) L Neutrophils (%) (Auto) 83.9 % (45.0-75.0) H 79.5 % (45.0-75.0) H Lymphocytes (%) (Auto) 10.4 % (20.0-45.0) L 13.5 % (20.0-45.0) L Monocytes (%) (Auto) 5.2 % (1.0-10.0) 6.4 % (1.0-10.0) Eosinophils (%) (Auto) 0.0 % (0.0-3.0) 0.2 % (0.0-3.0) Basophils (%) (Auto) 0.5 % (0.0-2.0) 0.4 % (0.0-2.0) Erythrocyte Sedimentation Rate 17 MM/HR (0-20) Prothrombin Time 13.1 SEC (9.30-11.50) H Prothromb Time International Ratio 1.2 (0.9-1.1) H Activated Partial Thromboplast Time 31 SEC (23-33) Sodium Level 140 MMOL/L (136-145) Potassium Level 3.9 MMOL/L (3.5-5.1) Chloride Level 110 MMOL/L (98-107) H Carbon Dioxide Level 23 MMOL/L (21-32) Anion Gap 7 mmol/L (5-15) Blood Urea Nitrogen 11 mg/dL (7-18) Creatinine 0.7 MG/DL (0.55-1.30) Estimat Glomerular Filtration Rate mL/min (>60) Glucose Level 144 MG/DL (74-106) H Lactic Acid Level 2.80 mmol/L (0.4-2.0) H Uric Acid 2.8 MG/DL (2.6-7.2) Calcium Level 7.9 MG/DL (8.5-10.1) L Phosphorus Level 2.2 MG/DL (2.5-4.9) L Magnesium Level 2.0 MG/DL (1.8-2.4) Total Bilirubin 2.5 MG/DL (0.2-1.0) H Direct Bilirubin 1.0 MG/DL (0.0-0.3) H Aspartate Amino Transf (AST/SGOT) 996 U/L (15-37) H Alanine Aminotransferase (ALT/SGPT) 194 U/L (12-78) H Alkaline Phosphatase 43 U/L (46-116) L Troponin I 0.331 ng/mL (0.000-0.056) C-Reactive Protein, Quantitative 29.3 mg/dL (0.00-0.90) H Total Protein 4.8 G/DL (6.4-8.2) L Albumin 2.3 G/DL (3.4-5.0) L Globulin 2.5 g/dL Albumin/Globulin Ratio 0.9 (1.0-2.7) L Amylase Level 116 U/L (25-115) H Lipase 33 U/L (73-393) L Arterial Blood pH Pending Arterial Blood Partial Pressure CO2 Pending Arterial Blood Partial Pressure O2 Pending Arterial Blood HCO3 Pending Arterial Blood Oxygen Saturation Pending Arterial Blood Base Excess Pending Uvaldo Test Pending Current Medications Medications (Trade) Dose Ordered Sig/Manish Route PRN Reason Start Time Stop Time Status Last Admin Dose Admin Acetaminophen (Tylenol) 650 mg Q6H PRN ORAL Mild Pain/Temp > 100.5 02/08/19 09:00 03/10/19 08:59 Clonidine HCl (Catapres Tab) 0.1 mg Q4H PRN ORAL bp over 165 syst 02/08/19 11:45 03/10/19 11:44 Clotrimazole (Lotrimin) 1 applic THREE TIMES A DAY TOPIC 02/08/19 18:00 03/10/19 17:59 02/09/19 10:25 Dextrose (Dextrose 50%) 25 ml Q30M PRN IV Hypoglycemia 02/08/19 09:00 03/10/19 08:59 Dextrose (Dextrose 50%) 50 ml Q30M PRN IV Hypoglycemia 02/08/19 09:00 03/10/19 08:59 Dextrose/Sodium Chloride 1,000 ml @ 40 mls/hr Q24H IV 02/08/19 19:15 03/10/19 19:14 02/08/19 20:07 Enalaprilat (Vasotec) 2.5 mg EVERY 6 HOURS IV 02/08/19 18:00 03/10/19 17:59 02/09/19 06:23 Fentanyl Citrate 1000 mcg/Sodium Chloride 100 ml @ 0 mls/hr Q24H IV 02/08/19 19:32 02/15/19 19:31 Insulin Aspart (NovoLOG) Q6HR SUBQ 02/08/19 12:00 03/10/19 11:59 02/09/19 06:25 Labetalol HCl (Normodyne) 20 mg Q4H PRN IV SBP>150 02/08/19 13:22 03/10/19 13:21 02/09/19 03:15 Lorazepam (Ativan 2mg/ml 1ml) 1 mg Q4H PRN IV For Anxiety 02/08/19 12:00 02/15/19 11:59 02/08/19 21:21 Pantoprazole 80 mg/Sodium Chloride 250 ml @ 25 mls/hr Q10H IV 02/08/19 12:00 03/10/19 11:59 02/09/19 10:26 Piperacillin Sod/ Tazobactam Sod 3.375 gm/Sodium Chloride 110 ml @ 27.5 mls/hr EVERY 8 HOURS IVPB 02/08/19 12:00 02/13/19 11:59 02/09/19 06:22 Sodium Phosphate 15 mm/Sodium Chloride 280 ml @ 70.273 mls/ hr ONCE ONCE IVPB 02/09/19 10:30 02/09/19 14:29 02/09/19 10:26 Thiamine HCl 100 mg/Dextrose 56 ml @ 112 mls/hr Q24H IVPB 02/08/19 13:00 03/10/19 12:59 02/08/19 13:30 Fazal Basilio MD Feb 09, 2019 10:44
--- NOTE | 2019-02-09 10:46 | Nephrology Progress Note ---
Assessment/Plan Problem List: (1) ARF (acute renal failure) (2) Dehydration (3) Acute respiratory failure (4) Esophageal varices (5) GIB (gastrointestinal bleeding) Assessment Acute renal failure , Cr lower now intubated Dehydration Hyperglycemia high Lactate level esophageal bleed GI bleed . Plan Hydrate per GI Monitor lytes and renal parameters protonix Thiamin Weaning as possible Subjective ROS Limited/Unobtainable: Yes Objective Objective Last 24 Hour Vital Signs Date Time Temp Pulse Resp B/P (MAP) Pulse Ox O2 Delivery O2 Flow Rate FiO2 02/09/19 09:00 88 18 30 02/09/19 07:30 85 18 139/64 (89) 100 02/09/19 07:17 79 18 30 02/09/19 07:00 83 18 148/65 (92) 100 02/09/19 06:30 79 19 156/60 (92) 100 02/09/19 06:23 159/58 02/09/19 06:00 89 20 159/58 (91) 100 02/09/19 05:10 80 18 30 02/09/19 05:00 90 20 165/64 (97) 100 02/09/19 04:30 76 18 148/64 (92) 100 02/09/19 04:00 Mechanical Ventilator 02/09/19 04:00 98.4 72 18 147/56 (86) 100 02/09/19 03:30 76 18 125/59 (81) 100 02/09/19 03:15 76 163/61 02/09/19 03:14 86 21 129/60 (83) 95 02/09/19 03:00 75 19 163/61 (95) 100 02/09/19 02:56 79 24 30 02/09/19 02:30 88 19 177/75 (109) 100 02/09/19 02:25 84 20 166/60 (95) 100 02/09/19 02:00 81 24 163/58 (93) 100 02/09/19 01:00 86 22 149/68 (95) 100 02/09/19 00:55 83 22 30 02/09/19 00:30 80 21 146/65 (92) 100 02/09/19 00:00 98.6 79 18 159/60 (93) 100 02/09/19 00:00 Mechanical Ventilator 02/09/19 00:00 81 02/08/19 23:49 162/76 02/08/19 23:30 90 21 162/76 (104) 100 02/08/19 23:15 79 19 30 02/08/19 23:00 84 19 161/65 (97) 100 02/08/19 22:30 82 18 149/68 (95) 100 02/08/19 22:00 82 20 145/68 (93) 100 02/08/19 21:30 89 28 145/64 (91) 100 02/08/19 21:21 89 170/70 02/08/19 21:00 89 20 170/70 (103) 100 02/08/19 20:59 84 20 30 02/08/19 20:21 92 22 161/74 (103) 99 02/08/19 20:00 99.9 95 23 162/98 (119) 100 02/08/19 20:00 Mechanical Ventilator 02/08/19 19:29 96 02/08/19 19:00 90 22 30 02/08/19 19:00 103 21 163/75 (104) 99 02/08/19 18:00 89 24 160/71 (100) 100 02/08/19 17:45 149/75 02/08/19 17:30 30 02/08/19 17:10 100 28 40 02/08/19 17:00 87 27 149/75 (99) 100 02/08/19 16:03 90 27 40 02/08/19 16:00 Mechanical Ventilator 02/08/19 16:00 98.2 92 29 146/86 (106) 100 02/08/19 16:00 93 02/08/19 15:00 98 29 146/85 (105) 100 02/08/19 14:30 102 27 50 02/08/19 14:30 101 26 162/86 (111) 100 02/08/19 14:20 70 02/08/19 14:00 98.0 114 30 199/85 (123) 100 02/08/19 13:53 111 13 163/97 (119) 100 02/08/19 13:43 120 183/115 02/08/19 13:30 117 20 183/115 (137) 100 02/08/19 13:20 129 14 100 Mechanical Ventilator 100 02/08/19 13:20 129 14 100 02/08/19 12:00 Room Air 02/08/19 12:00 117 02/08/19 12:00 98.0 114 30 199/85 (123) 100 02/08/19 11:00 124 24 177/86 (116) 100 Intake and Output 02/08/19 02/09/19 18:59 06:59 Intake Total 1710.50 ml 784.0 ml Output Total 950 ml 545 ml Balance 760.50 ml 239.0 ml Intake IV Total 1210.50 ml 784.0 ml Blood Product 500 ml Output Urine Total 950 ml 545 ml # Voids 9 1 # Bowel Movements 11 6 Laboratory Tests 02/08/19 11:30: Lactic Acid Level 1.80 02/08/19 14:05: Arterial Blood pH 7.291L, Arterial Blood Partial Pressure CO2 38.3, Arterial Blood Partial Pressure O2 323.1H, Arterial Blood HCO3 18.0L, Arterial Blood Oxygen Saturation 99.4, Arterial Blood Base Excess -7.9L, Uvaldo Test Positive 02/08/19 14:15: White Blood Count 19.3H, Red Blood Count 4.83, Hemoglobin 14.9, Hematocrit 43.5 , Mean Corpuscular Volume 90, Mean Corpuscular Hemoglobin 30.9, Mean Corpuscular Hemoglobin Concent 34.3, Red Cell Distribution Width 13.0, Platelet Count 178, Mean Platelet Volume 5.5L, Neutrophils (%) (Auto) , Lymphocytes (%) ( Auto) , Monocytes (%) (Auto) , Eosinophils (%) (Auto) , Basophils (%) (Auto) , Differential Total Cells Counted 100, Neutrophils % (Manual) 88H, Lymphocytes % (Manual) 6L, Monocytes % (Manual) 4, Eosinophils % (Manual) 0, Basophils % ( Manual) 0, Band Neutrophils 2, Platelet Estimate Adequate, Platelet Morphology Normal, Red Blood Cell Morphology Normal 02/08/19 17:12: Arterial Blood pH 7.412, Arterial Blood Partial Pressure CO2 28.6L, Arterial Blood Partial Pressure O2 157.3H, Arterial Blood HCO3 17.8*L, Arterial Blood Oxygen Saturation 98.8, Arterial Blood Base Excess -5.3L, Uvaldo Test Positive 02/08/19 20:15: White Blood Count 18.7H, Red Blood Count 4.40L, Hemoglobin 13.7L, Hematocrit 37.8L, Mean Corpuscular Volume 86, Mean Corpuscular Hemoglobin 31.2H, Mean Corpuscular Hemoglobin Concent 36.3H, Red Cell Distribution Width 12.3, Platelet Count 171, Mean Platelet Volume 5.9L, Neutrophils (%) (Auto) 83.9H, Lymphocytes (%) (Auto) 10.4L, Monocytes (%) (Auto) 5.2, Eosinophils (%) (Auto) 0.0, Basophils (%) (Auto) 0.5 02/09/19 04:13: White Blood Count 15.6H, Red Blood Count 4.26L, Hemoglobin 13.3L, Hematocrit 38.6L, Mean Corpuscular Volume 91, Mean Corpuscular Hemoglobin 31.2H, Mean Corpuscular Hemoglobin Concent 34.5, Red Cell Distribution Width 13.5, Platelet Count 166, Mean Platelet Volume 5.4L, Neutrophils (%) (Auto) 79.5H, Lymphocytes (%) (Auto) 13.5L, Monocytes (%) (Auto) 6.4, Eosinophils (%) (Auto) 0.2, Basophils (%) (Auto) 0.4, Erythrocyte Sedimentation Rate 17, Prothrombin Time 13.1H, Prothromb Time International Ratio 1.2H, Activated Partial Thromboplast Time 31, Sodium Level 140, Potassium Level 3.9, Chloride Level 110H, Carbon Dioxide Level 23, Anion Gap 7, Blood Urea Nitrogen 11, Creatinine 0.7, Estimat Glomerular Filtration Rate , Glucose Level 144H, Lactic Acid Level 2.80H, Uric Acid 2.8, Calcium Level 7.9L, Phosphorus Level 2.2L, Magnesium Level 2.0, Total Bilirubin 2.5H, Direct Bilirubin 1.0H, Aspartate Amino Transf (AST/SGOT) 996H, Alanine Aminotransferase (ALT/SGPT) 194H, Alkaline Phosphatase 43L, Troponin I 0.331H, C-Reactive Protein, Quantitative 29.3H, Total Protein 4.8L, Albumin 2.3L , Globulin 2.5, Albumin/Globulin Ratio 0.9L, Amylase Level 116H, Lipase 33L 02/09/19 08:00: Arterial Blood pH [Pending], Arterial Blood Partial Pressure CO2 [Pending], Arterial Blood Partial Pressure O2 [Pending], Arterial Blood HCO3 [Pending], Arterial Blood Oxygen Saturation [Pending], Arterial Blood Base Excess [Pending] , Uvaldo Test [Pending] Height (Feet): 5 Height (Inches): 5.00 Weight (Pounds): 124 General Appearance: no apparent distress EENT: other - vented Cardiovascular: normal rate Respiratory/Chest: decreased breath sounds Abdomen: distended Arturo Cruz MD Feb 09, 2019 10:46
--- NOTE | 2019-02-09 11:29 | NUR ---
Social Service Note Patient remains orally intubated. Patient is alert, able to nod head for yes/no questions. Patient nodded head yes that he understood [place]. Patient nodded head no that he was homeless. Patient with multiple contacts in his wallet. Patient nodded yes that he knew each of the people SW stated. Patient nodded yes SW could contact them. Message left for: Angélica [phone] Nicole Kelley [phone] She Javier [phone] Parris Harrell [phone] line busy unable to leave a message No name listed [phone] Will monitor and follow up.
--- NOTE | 2019-02-09 12:12 | NUR ---
NURSE NOTES: Patient awake, on ETT 7.5/22cm lip line vent with current settings: AC 18, VT 500, Fi02 30%, peep 5, saturation at 100%. No acute distress distress noted. orally suction moderate amounts of thick brown secretions. abdomen distended. i bm of tarry stool. HOB elevated. Temp 100 axillary , cooling measure provided. Bilateral wrist restraint checked. dark ashlee urine in collection bag. patient IV line intact, no s/s of infiltration. On Protonix drip at 25mls/hr. Will monitor patient for bleeding. Bed alarm on. Bed locked and in low position. Will continue plan of care.
--- NOTE | 2019-02-09 12:54 | Consultation ---
History of Present Illness General Date patient seen: Feb 09, 2019 Time patient seen: 12:30 Chief Complaint: Generalized Weakness Referring physician: JANET LOFTON Reason for Consultation: GI BLEED Present Illness HPI Pt seen bedside for B/L LE elongated, hypertrophic nails. Allergies: Coded Allergies: No Known Allergies (Unverified , 02/07/19) Medication History Scheduled No Known Medications* (NKM - No Known Medications*), 0 ., (Reported) Patient History Healthcare decision maker Resuscitation status Advanced Directive on File Review of Systems ROS Narrative Refer to PCP admitting H/P Physical Exam Last 24 Hour Vital Signs Date Time Temp Pulse Resp B/P (MAP) Pulse Ox O2 Delivery O2 Flow Rate FiO2 02/09/19 11:05 90 18 30 02/09/19 11:00 91 18 140/61 (87) 100 02/09/19 10:00 76 21 146/58 (87) 100 02/09/19 09:00 93 20 155/69 (97) 100 02/09/19 09:00 88 18 30 02/09/19 08:00 97.8 100 20 154/72 (99) 100 02/09/19 07:30 85 18 139/64 (89) 100 02/09/19 07:17 79 18 30 02/09/19 07:00 83 18 148/65 (92) 100 02/09/19 06:30 79 19 156/60 (92) 100 02/09/19 06:23 159/58 02/09/19 06:00 89 20 159/58 (91) 100 02/09/19 05:10 80 18 30 02/09/19 05:00 90 20 165/64 (97) 100 02/09/19 04:30 76 18 148/64 (92) 100 02/09/19 04:00 Mechanical Ventilator 02/09/19 04:00 98.4 72 18 147/56 (86) 100 02/09/19 03:30 76 18 125/59 (81) 100 02/09/19 03:15 76 163/61 02/09/19 03:14 86 21 129/60 (83) 95 02/09/19 03:00 75 19 163/61 (95) 100 02/09/19 02:56 79 24 30 02/09/19 02:30 88 19 177/75 (109) 100 02/09/19 02:25 84 20 166/60 (95) 100 02/09/19 02:00 81 24 163/58 (93) 100 02/09/19 01:00 86 22 149/68 (95) 100 02/09/19 00:55 83 22 30 02/09/19 00:30 80 21 146/65 (92) 100 02/09/19 00:00 98.6 79 18 159/60 (93) 100 02/09/19 00:00 Mechanical Ventilator 02/09/19 00:00 81 02/08/19 23:49 162/76 02/08/19 23:30 90 21 162/76 (104) 100 02/08/19 23:15 79 19 30 02/08/19 23:00 84 19 161/65 (97) 100 02/08/19 22:30 82 18 149/68 (95) 100 02/08/19 22:00 82 20 145/68 (93) 100 02/08/19 21:30 89 28 145/64 (91) 100 02/08/19 21:21 89 170/70 02/08/19 21:00 89 20 170/70 (103) 100 02/08/19 20:59 84 20 30 02/08/19 20:21 92 22 161/74 (103) 99 02/08/19 20:00 99.9 95 23 162/98 (119) 100 02/08/19 20:00 Mechanical Ventilator 02/08/19 19:29 96 02/08/19 19:00 90 22 30 02/08/19 19:00 103 21 163/75 (104) 99 02/08/19 18:00 89 24 160/71 (100) 100 02/08/19 17:45 149/75 02/08/19 17:30 30 02/08/19 17:10 100 28 40 02/08/19 17:00 87 27 149/75 (99) 100 02/08/19 16:03 90 27 40 02/08/19 16:00 Mechanical Ventilator 02/08/19 16:00 98.2 92 29 146/86 (106) 100 02/08/19 16:00 93 02/08/19 15:00 98 29 146/85 (105) 100 02/08/19 14:30 102 27 50 02/08/19 14:30 101 26 162/86 (111) 100 02/08/19 14:20 70 02/08/19 14:00 98.0 114 30 199/85 (123) 100 02/08/19 13:53 111 13 163/97 (119) 100 02/08/19 13:43 120 183/115 02/08/19 13:30 117 20 183/115 (137) 100 02/08/19 13:20 129 14 100 Mechanical Ventilator 100 02/08/19 13:20 129 14 100 Intake and Output 02/08/19 02/09/19 19:00 07:00 Intake Total 1235.50 ml 759.0 ml Output Total 950 ml 580 ml Balance 285.50 ml 179.0 ml Intake IV Total 1235.50 ml 759.0 ml Output Urine Total 950 ml 580 ml # Voids 10 # Bowel Movements 12 5 Laboratory Tests Test 02/08/19 14:05 02/08/19 14:15 02/08/19 17:12 02/08/19 20:15 Arterial Blood pH 7.291 (7.350-7.450) 7.412 (7.350-7.450) Arterial Blood Partial Pressure CO2 38.3 mmHg (35.0-45.0) 28.6 mmHg (35.0-45.0) L Arterial Blood Partial Pressure O2 323.1 mmHg (75.0-100.0) H 157.3 mmHg (75.0-100.0) H Arterial Blood HCO3 18.0 mmol/L (22.0-26.0) L 17.8 mmol/L (22.0-26.0) *L Arterial Blood Oxygen Saturation 99.4 % (95-100) 98.8 % (95-100) Arterial Blood Base Excess -7.9 (-2-2) L -5.3 (-2-2) L Uvaldo Test Positive Positive White Blood Count 19.3 K/UL (4.8-10.8) H 18.7 K/UL (4.8-10.8) H Red Blood Count 4.83 M/UL (4.70-6.10) 4.40 M/UL (4.70-6.10) L Hemoglobin 14.9 G/DL (14.2-18.0) 13.7 G/DL (14.2-18.0) L Hematocrit 43.5 % (42.0-52.0) 37.8 % (42.0-52.0) L Mean Corpuscular Volume 90 FL (80-99) 86 FL (80-99) Mean Corpuscular Hemoglobin 30.9 PG (27.0-31.0) 31.2 PG (27.0-31.0) H Mean Corpuscular Hemoglobin Concent 34.3 G/DL (32.0-36.0) 36.3 G/DL (32.0-36.0) H Red Cell Distribution Width 13.0 % (11.6-14.8) 12.3 % (11.6-14.8) Platelet Count 178 K/UL (150-450) 171 K/UL (150-450) Mean Platelet Volume 5.5 FL (6.5-10.1) L 5.9 FL (6.5-10.1) L Neutrophils (%) (Auto) % (45.0-75.0) 83.9 % (45.0-75.0) H Lymphocytes (%) (Auto) % (20.0-45.0) 10.4 % (20.0-45.0) L Monocytes (%) (Auto) % (1.0-10.0) 5.2 % (1.0-10.0) Eosinophils (%) (Auto) % (0.0-3.0) 0.0 % (0.0-3.0) Basophils (%) (Auto) % (0.0-2.0) 0.5 % (0.0-2.0) Differential Total Cells Counted 100 Neutrophils % (Manual) 88 % (45-75) H Lymphocytes % (Manual) 6 % (20-45) L Monocytes % (Manual) 4 % (1-10) Eosinophils % (Manual) 0 % (0-3) Basophils % (Manual) 0 % (0-2) Band Neutrophils 2 % (0-8) Platelet Estimate Adequate Platelet Morphology Normal Red Blood Cell Morphology Normal Test 02/09/19 04:13 02/09/19 08:00 White Blood Count 15.6 K/UL (4.8-10.8) H Red Blood Count 4.26 M/UL (4.70-6.10) L Hemoglobin 13.3 G/DL (14.2-18.0) L Hematocrit 38.6 % (42.0-52.0) L Mean Corpuscular Volume 91 FL (80-99) Mean Corpuscular Hemoglobin 31.2 PG (27.0-31.0) H Mean Corpuscular Hemoglobin Concent 34.5 G/DL (32.0-36.0) Red Cell Distribution Width 13.5 % (11.6-14.8) Platelet Count 166 K/UL (150-450) Mean Platelet Volume 5.4 FL (6.5-10.1) L Neutrophils (%) (Auto) 79.5 % (45.0-75.0) H Lymphocytes (%) (Auto) 13.5 % (20.0-45.0) L Monocytes (%) (Auto) 6.4 % (1.0-10.0) Eosinophils (%) (Auto) 0.2 % (0.0-3.0) Basophils (%) (Auto) 0.4 % (0.0-2.0) Erythrocyte Sedimentation Rate 17 MM/HR (0-20) Prothrombin Time 13.1 SEC (9.30-11.50) H Prothromb Time International Ratio 1.2 (0.9-1.1) H Activated Partial Thromboplast Time 31 SEC (23-33) Sodium Level 140 MMOL/L (136-145) Potassium Level 3.9 MMOL/L (3.5-5.1) Chloride Level 110 MMOL/L (98-107) H Carbon Dioxide Level 23 MMOL/L (21-32) Anion Gap 7 mmol/L (5-15) Blood Urea Nitrogen 11 mg/dL (7-18) Creatinine 0.7 MG/DL (0.55-1.30) Estimat Glomerular Filtration Rate mL/min (>60) Glucose Level 144 MG/DL (74-106) H Lactic Acid Level 2.80 mmol/L (0.4-2.0) H Uric Acid 2.8 MG/DL (2.6-7.2) Calcium Level 7.9 MG/DL (8.5-10.1) L Phosphorus Level 2.2 MG/DL (2.5-4.9) L Magnesium Level 2.0 MG/DL (1.8-2.4) Total Bilirubin 2.5 MG/DL (0.2-1.0) H Direct Bilirubin 1.0 MG/DL (0.0-0.3) H Aspartate Amino Transf (AST/SGOT) 996 U/L (15-37) H Alanine Aminotransferase (ALT/SGPT) 194 U/L (12-78) H Alkaline Phosphatase 43 U/L (46-116) L Troponin I 0.331 ng/mL (0.000-0.056) C-Reactive Protein, Quantitative 29.3 mg/dL (0.00-0.90) H Total Protein 4.8 G/DL (6.4-8.2) L Albumin 2.3 G/DL (3.4-5.0) L Globulin 2.5 g/dL Albumin/Globulin Ratio 0.9 (1.0-2.7) L Amylase Level 116 U/L (25-115) H Lipase 33 U/L (73-393) L Arterial Blood pH Pending Arterial Blood Partial Pressure CO2 Pending Arterial Blood Partial Pressure O2 Pending Arterial Blood HCO3 Pending Arterial Blood Oxygen Saturation Pending Arterial Blood Base Excess Pending Uvaldo Test Pending Microbiology Date/Time Source Procedure Growth Status 02/08/19 13:30 Sputum Gram Stain - Final Resulted 02/08/19 13:30 Sputum Sputum Culture Pending Resulted Height (Feet): 5 Height (Inches): 5.00 Weight (Pounds): 124 Medications Current Medications Medications (Trade) Dose Ordered Sig/Manish Route PRN Reason Start Time Stop Time Status Last Admin Dose Admin Acetaminophen (Tylenol) 650 mg Q6H PRN ORAL Mild Pain/Temp > 100.5 02/08/19 09:00 03/10/19 08:59 Clotrimazole (Lotrimin) 1 applic THREE TIMES A DAY TOPIC 02/08/19 18:00 03/10/19 17:59 02/09/19 10:25 Dextrose (Dextrose 50%) 25 ml Q30M PRN IV Hypoglycemia 02/08/19 09:00 03/10/19 08:59 Dextrose (Dextrose 50%) 50 ml Q30M PRN IV Hypoglycemia 02/08/19 09:00 03/10/19 08:59 Dextrose/Sodium Chloride 1,000 ml @ 40 mls/hr Q24H IV 02/08/19 19:15 03/10/19 19:14 02/08/19 20:07 Enalaprilat (Vasotec) 2.5 mg EVERY 6 HOURS IV 02/08/19 18:00 03/10/19 17:59 02/09/19 06:23 Fentanyl Citrate 1000 mcg/Sodium Chloride 100 ml @ 0 mls/hr Q24H IV 02/08/19 19:32 02/15/19 19:31 Insulin Aspart (NovoLOG) Q6HR SUBQ 02/08/19 12:00 03/10/19 11:59 02/09/19 06:25 Labetalol HCl (Normodyne) 20 mg Q4H PRN IV SBP>150 02/08/19 13:22 03/10/19 13:21 02/09/19 03:15 Lorazepam (Ativan 2mg/ml 1ml) 1 mg Q4H PRN IV For Anxiety 02/08/19 12:00 02/15/19 11:59 02/08/19 21:21 Pantoprazole 80 mg/Sodium Chloride 250 ml @ 25 mls/hr Q10H IV 02/08/19 12:00 03/10/19 11:59 02/09/19 10:26 Piperacillin Sod/ Tazobactam Sod 3.375 gm/Sodium Chloride 110 ml @ 27.5 mls/hr EVERY 8 HOURS IVPB 02/08/19 12:00 02/13/19 11:59 02/09/19 06:22 Sodium Phosphate 15 mm/Sodium Chloride 280 ml @ 70.273 mls/ hr ONCE ONCE IVPB 02/09/19 10:30 02/09/19 14:29 02/09/19 10:26 Thiamine HCl 100 mg/Dextrose 56 ml @ 112 mls/hr Q24H IVPB 02/08/19 13:00 03/10/19 12:59 02/08/19 13:30 Objective Narrative Focused B/L LE: Derm: hyper-pigmentation consistent with statsis dermatitis extending distally from proximal tibial tuberosity. Elongated, thickened, onychogryphotic nails are noted to B/L LE. Neuro: SILT decreased MSK: deferred, pt bed-bound Vasc: +1/4 DP/PT pulses. 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 - Toenails to B/L LE digits 1-5, debridement performed without incident, aseptic technique. - Cont Tx per specialists. - Appreciate Consult. - No further tx required by podiatry. Navdeep Justin DPM Feb 09, 2019 12:54
--- NOTE | 2019-02-09 13:13 | NUR ---
RESPIRATORY NOTE: attempted to wean pt at 1305 with RN at bedside. placed pt on CPAP PS 10. pt is czech speaking and asked if he was okay. pt agreed it was a little too hard/tough. placed pt back on AC mode and let pt know will attempt tomorrow again.
[2019-02-09] MEDS: Thiamine HCl 100 MG in D5W 55 ML IVPB SCH (13:20)
--- NOTE | 2019-02-09 13:44 | NUR ---
CASE MANAGEMENT: REVIEW 02/09/2019 SI:DKA. GIB. T 97.8 HR 100 RR 20 B/P 154/72 SATS 100% ON MECH VENT FIO2 30 WBC 15.6 CL 110 GLU 144 CA 7.9 CA 7.9 PHOS 2.2 TBILI 2.5 DBILI 1 AST 996 ALT 194 ALP 43 ABGs: PENDING IS:PROTONIX IV @ 25mL/HR IVF @ 40 mL/HR VASOTEC IV Q6H ZOSYN IV Q8H SODIUM PHOS IV X1 THIAMINE IV Q24H FENTANYL IV Q24H ICU PLAN OF CARE: WEAN POSSIBLE IV HYDRATE
--- NOTE | 2019-02-09 13:45 | Cardiology Report ---
APPROVED REPORT EXAM: Two-dimensional and M-mode echocardiogram with Doppler and color Doppler. INDICATION Tachycarida M-Mode DIMENSIONS IVSd1.1 (0.7-1.1cm)Left Atrium (MM)2.1 (1.6-4.0cm) LVDd3.3 (3.5-5.6cm)Aortic Root3.1 (2.0-3.7cm) PWd1.2 (0.7-1.1cm)Aortic Cusp Exc.1.6 (1.5-2.0cm) IVSs1.1 cm LVDs2.3 (2.5-4.0cm) PWs1.1 cm Technically difficult study due to poor acoustical windows. Normal left ventricular chamber size, systolic function and wall motion to extent visualized. Left ventricular ejection fraction estimated to be 60 %. No evidence of left ventricular hypertrophy. Anterior Echo-free space, may be due to pericardial fat or effusion. All other cardiac chamber sizes are within normal limits. Focal aortic valve sclerosis with adequate cusp excursion. Thickened mitral valve leaflets with normal excursion. Mitral annulus and aortic root calcification. Normal pulmonic valve structure. Normal tricuspid valve structure. IVC at size 1.8cm without physiologic collapse. A color flow and spectral Doppler study was performed and revealed: No aortic insufficiency. Trace mitral regurgitation. Mitral diastolic velocities suggest reduced left ventricular relaxation c/w mild LV diastolic dysfunction (Grade I ). Mild tricuspid regurgitation. Tricuspid systolic velocities suggests peak right ventricular systolic pressure of 29 mmHg.
--- NOTE | 2019-02-09 15:56 | NUR ---
RD ASSESSMENT & RECOMMENDATIONS SEE CARE ACTIVITY FOR COMPLETE ASSESSMENT DAILY ESTIMATED NEEDS: Needs based on Critical care, DKA/ 56kg 22-28 kcals/kg 3315-9117 total kcals 1.2-2 g protein/kg 67-112 g total protein 25-30 mL/kg 7525-8433 total fluid mLs NUTRITION DIAGNOSIS: Altered GI function R/T GIB as evidenced by s/p EGD w/ finding of large duodenal ulcer, NPO at this time, orally intubated in ICU. CURRENT DIET:NPO PO DIET RECOMMENDATIONS: S/p extubation -> initiate diet per MD, BLAND diet ENTERAL NUTRITION RECOMMENDATIONS: CONSULT RD FOR TF REC IF PT REMAINS ON VENT, MEDICALLY APPROPRIATE TO FEED ADDITIONAL RECOMMENDATIONS: * Calibrated bedscale wt for accurate CBW -> w/ p200 mattress, SCD's * Monitor NPO status, ability to feed * F/up with wound eval -> When appropriate to feed: add MVI x 1, Vit C 250mg QD, Jonathon 1pkt BID * Monitor BGs closely- improved at this time
--- NOTE | 2019-02-09 16:02 | Hematology/Onc Progress Note ---
Assessment/Plan Assessment/Plan # Anemia due to underlying gi bleed, sp egd which showed duodenal ulceration, failed hemostasis --> surgery eval as needed, prn --> continue ppi --> coags slightly elevated, nsider vit K if persistent bleeding --> transfuse if hgb <7 # Leukocytosis with Sepsis, systemic inflammatory response syndrome --> is on abx, zosyn per id --> per id recs # DKA with Uncontrolled DM --> on insulin sliding scale # Lactic acidosis, --> trend as needed, on ivf, thiamine, folate # Acute renal failure improving. --> sp fluids # Onychomycosis and tinea pedis, --> podiatry consulted # Elevated transaminase level. --> trend as needed # Acute respiratory failure --> wean per pulm The timing of this note does not necessarily reflect the time of the patient was seen. GREATLY APPRECIATE CONSULTATION. Subjective Constitutional: Denies: no symptoms, chills, fever, malaise, weakness, other HEENT: Denies: no symptoms, eye pain, blurred vision, tearing, double vision, ear pain, ear discharge, nose pain, nose congestion, throat pain, throat swelling, mouth pain, mouth swelling, other Cardiovascular: Denies: no symptoms, chest pain, edema, irregular heart rate, lightheadedness, palpitations, syncope, other Respiratory: Denies: no symptoms, cough, shortness of breath, SOB with excertion, SOB at rest, sputum, wheezing, other Genitourinary: Denies: no symptoms, burning, discharge, frequency, flank pain, hematuria, incontinence, pain, urgency, other Neurologic/Psychiatric: Denies: no symptoms, anxiety, depressed, emotional problems, headache, numbness, paresthesia, pre-existing deficit, seizure, tingling, tremors, weakness, other Allergies: Coded Allergies: No Known Allergies (Unverified , 02/07/19) Subjective 02/09: remains intubated, on vent, able to respond, in greek, to commands weaning today, h/h reviewed Objective Objective Current Medications Medications (Trade) Dose Ordered Sig/Manish Route PRN Reason Start Time Stop Time Status Last Admin Dose Admin Acetaminophen (Tylenol) 650 mg Q6H PRN ORAL Mild Pain/Temp > 100.5 02/08/19 09:00 03/10/19 08:59 Clotrimazole (Lotrimin) 1 applic THREE TIMES A DAY TOPIC 02/08/19 18:00 03/10/19 17:59 02/09/19 13:04 Dextrose (Dextrose 50%) 25 ml Q30M PRN IV Hypoglycemia 02/08/19 09:00 03/10/19 08:59 Dextrose (Dextrose 50%) 50 ml Q30M PRN IV Hypoglycemia 02/08/19 09:00 03/10/19 08:59 Dextrose/Sodium Chloride 1,000 ml @ 40 mls/hr Q24H IV 02/08/19 19:15 03/10/19 19:14 02/08/19 20:07 Enalaprilat (Vasotec) 2.5 mg EVERY 6 HOURS IV 02/08/19 18:00 03/10/19 17:59 02/09/19 13:05 Fentanyl Citrate 1000 mcg/Sodium Chloride 100 ml @ 0 mls/hr Q24H IV 02/08/19 19:32 02/15/19 19:31 Insulin Aspart (NovoLOG) Q6HR SUBQ 02/08/19 12:00 03/10/19 11:59 02/09/19 13:03 Labetalol HCl (Normodyne) 20 mg Q4H PRN IV SBP>150 02/08/19 13:22 03/10/19 13:21 02/09/19 03:15 Lorazepam (Ativan 2mg/ml 1ml) 1 mg Q4H PRN IV For Anxiety 02/08/19 12:00 02/15/19 11:59 02/08/19 21:21 Pantoprazole 80 mg/Sodium Chloride 250 ml @ 25 mls/hr Q10H IV 02/08/19 12:00 03/10/19 11:59 02/09/19 10:26 Piperacillin Sod/ Tazobactam Sod 3.375 gm/Sodium Chloride 110 ml @ 27.5 mls/hr EVERY 8 HOURS IVPB 02/08/19 12:00 02/13/19 11:59 02/09/19 13:05 Thiamine HCl 100 mg/Dextrose 56 ml @ 112 mls/hr Q24H IVPB 02/08/19 13:00 03/10/19 12:59 02/09/19 13:20 Last 24 Hour Vital Signs Date Time Temp Pulse Resp B/P (MAP) Pulse Ox O2 Delivery O2 Flow Rate FiO2 02/09/19 14:40 107 21 30 02/09/19 13:12 101 23 30 02/09/19 13:05 150/72 02/09/19 12:00 Mechanical Ventilator 02/09/19 12:00 102 02/09/19 11:05 90 18 30 02/09/19 11:00 91 18 140/61 (87) 100 02/09/19 10:00 76 21 146/58 (87) 100 02/09/19 09:00 93 20 155/69 (97) 100 02/09/19 09:00 88 18 30 02/09/19 08:00 97.8 100 20 154/72 (99) 100 02/09/19 08:00 Mechanical Ventilator 02/09/19 08:00 79 02/09/19 07:30 85 18 139/64 (89) 100 02/09/19 07:17 79 18 30 02/09/19 07:00 83 18 148/65 (92) 100 02/09/19 06:30 79 19 156/60 (92) 100 02/09/19 06:23 159/58 02/09/19 06:00 89 20 159/58 (91) 100 02/09/19 05:10 80 18 30 02/09/19 05:00 90 20 165/64 (97) 100 02/09/19 04:30 76 18 148/64 (92) 100 02/09/19 04:00 Mechanical Ventilator 02/09/19 04:00 98.4 72 18 147/56 (86) 100 02/09/19 03:30 76 18 125/59 (81) 100 02/09/19 03:15 76 163/61 02/09/19 03:14 86 21 129/60 (83) 95 02/09/19 03:00 75 19 163/61 (95) 100 02/09/19 02:56 79 24 30 02/09/19 02:30 88 19 177/75 (109) 100 02/09/19 02:25 84 20 166/60 (95) 100 02/09/19 02:00 81 24 163/58 (93) 100 02/09/19 01:00 86 22 149/68 (95) 100 02/09/19 00:55 83 22 30 02/09/19 00:30 80 21 146/65 (92) 100 02/09/19 00:00 98.6 79 18 159/60 (93) 100 02/09/19 00:00 Mechanical Ventilator 02/09/19 00:00 81 02/08/19 23:49 162/76 02/08/19 23:30 90 21 162/76 (104) 100 02/08/19 23:15 79 19 30 02/08/19 23:00 84 19 161/65 (97) 100 02/08/19 22:30 82 18 149/68 (95) 100 02/08/19 22:00 82 20 145/68 (93) 100 02/08/19 21:30 89 28 145/64 (91) 100 02/08/19 21:21 89 170/70 02/08/19 21:00 89 20 170/70 (103) 100 02/08/19 20:59 84 20 30 02/08/19 20:21 92 22 161/74 (103) 99 02/08/19 20:00 99.9 95 23 162/98 (119) 100 02/08/19 20:00 Mechanical Ventilator 02/08/19 19:29 96 02/08/19 19:00 90 22 30 02/08/19 19:00 103 21 163/75 (104) 99 02/08/19 18:00 89 24 160/71 (100) 100 02/08/19 17:45 149/75 02/08/19 17:30 30 02/08/19 17:10 100 28 40 02/08/19 17:00 87 27 149/75 (99) 100 02/08/19 16:03 90 27 40 02/08/19 16:00 Mechanical Ventilator 02/08/19 16:00 98.2 92 29 146/86 (106) 100 02/08/19 16:00 93 02/08/19 15:00 98 29 146/85 (105) 100 02/08/19 14:30 102 27 50 02/08/19 14:30 101 26 162/86 (111) 100 02/08/19 14:20 70 02/08/19 14:00 98.0 114 30 199/85 (123) 100 02/08/19 13:53 111 13 163/97 (119) 100 02/08/19 13:43 120 183/115 02/08/19 13:30 117 20 183/115 (137) 100 02/08/19 13:20 129 14 100 Mechanical Ventilator 100 02/08/19 13:20 129 14 100 02/08/19 12:00 Room Air 02/08/19 12:00 117 02/08/19 12:00 98.0 114 30 199/85 (123) 100 02/08/19 11:00 124 24 177/86 (116) 100 02/08/19 10:00 112 29 160/84 (109) 100 02/08/19 09:00 119 20 119/77 (91) 100 02/08/19 08:00 98.1 120 25 111/80 (90) 100 02/08/19 08:00 112 02/08/19 08:00 Room Air 02/08/19 07:40 97.8 121 24 168/101 100 Nasal Cannula 3.0 02/08/19 07:40 97.8 121 24 168/101 100 Nasal Cannula 3.0 02/08/19 07:00 97.6 119 26 02/08/19 06:55 97.6 118 25 02/08/19 06:45 98.0 135 27 02/08/19 06:40 98.3 132 24 02/08/19 06:35 98.3 127 33 02/08/19 06:30 97.8 138 29 02/08/19 06:05 97.9 123 26 02/08/19 06:00 98.0 110 22 144/110 (121) 97 02/08/19 06:00 98.4 126 24 02/08/19 05:55 97.6 128 30 02/08/19 05:54 Nasal Cannula 3.0 02/08/19 05:34 Nasal Cannula 3.0 02/08/19 05:20 97.5 134 30 162/85 96 Simple Mask 3.0 02/08/19 05:05 97.8 140 28 144/86 100 Nasal Cannula 3.0 02/08/19 05:05 97.8 140 28 02/08/19 05:00 97.6 139 24 143/72 95 Nasal Cannula 3.0 02/08/19 05:00 97.6 139 24 02/08/19 04:55 97.3 146 28 147/76 100 Nasal Cannula 3.0 02/08/19 04:55 97.3 146 28 02/08/19 04:50 97.3 141 30 02/08/19 04:50 97.3 141 30 150/113 89 Nasal Cannula 3.0 02/08/19 04:00 98.6 137 20 137/78 100 Nasal Cannula 3.0 02/08/19 04:00 3.0 02/08/19 03:01 97.9 153 30 126/55 100 Nasal Cannula 3.0 02/08/19 02:25 145 144/69 02/08/19 01:53 97.4 145 28 124/67 100 Nasal Cannula 3.0 02/08/19 01:14 96.9 155 30 102/56 100 Nasal Cannula 3.0 02/08/19 00:36 96.9 02/07/19 23:05 100.3 147 33 106/73 94 Nasal Cannula 3.0 02/07/19 23:05 147 33 Nasal Cannula 3.0 02/07/19 23:03 98.2 140 20 106/73 (84) 94 Nasal Cannula 2.0 Intake and Output 02/08/19 02/09/19 19:00 07:00 Intake Total 1235.50 ml 759.0 ml Output Total 950 ml 580 ml Balance 285.50 ml 179.0 ml Intake IV Total 1235.50 ml 759.0 ml Output Urine Total 950 ml 580 ml # Voids 10 # Bowel Movements 12 5 Labs Test 02/07/19 23:17 02/07/19 23:43 02/08/19 00:03 02/08/19 00:43 White Blood Count 34.1 K/UL (4.8-10.8) Red Blood Count 3.87 M/UL (4.70-6.10) Hemoglobin 12.1 G/DL (14.2-18.0) Hematocrit 37.5 % (42.0-52.0) Mean Corpuscular Volume 97 FL (80-99) Mean Corpuscular Hemoglobin 31.2 PG (27.0-31.0) Mean Corpuscular Hemoglobin Concent 32.2 G/DL (32.0-36.0) Red Cell Distribution Width 13.8 % (11.6-14.8) Platelet Count 307 K/UL (150-450) Mean Platelet Volume 5.2 FL (6.5-10.1) Neutrophils (%) (Auto) % (45.0-75.0) Lymphocytes (%) (Auto) % (20.0-45.0) Monocytes (%) (Auto) % (1.0-10.0) Eosinophils (%) (Auto) % (0.0-3.0) Basophils (%) (Auto) % (0.0-2.0) Differential Total Cells Counted 100 Neutrophils % (Manual) 52 % (45-75) Lymphocytes % (Manual) 41 % (20-45) Monocytes % (Manual) 3 % (1-10) Eosinophils % (Manual) 0 % (0-3) Basophils % (Manual) 0 % (0-2) Band Neutrophils 4 % (0-8) Platelet Estimate Adequate Platelet Morphology Normal Prothrombin Time 14.0 SEC (9.30-11.50) Prothromb Time International Ratio 1.3 (0.9-1.1) Activated Partial Thromboplast Time 32 SEC (23-33) Sodium Level 138 MMOL/L (136-145) Potassium Level 4.8 MMOL/L (3.5-5.1) Chloride Level 103 MMOL/L (98-107) Carbon Dioxide Level 10 MMOL/L (21-32) Anion Gap 25 mmol/L (5-15) Blood Urea Nitrogen 33 mg/dL (7-18) Creatinine 1.9 MG/DL (0.55-1.30) Estimat Glomerular Filtration Rate mL/min (>60) Glucose Level 405 MG/DL (74-106) Lactic Acid Level 21.40 mmol/L (0.4-2.0) 14.20 mmol/L (0.66-2.22) Calcium Level 10.0 MG/DL (8.5-10.1) Total Bilirubin 0.3 MG/DL (0.2-1.0) Aspartate Amino Transf (AST/SGOT) 22 U/L (15-37) Alanine Aminotransferase (ALT/SGPT) 22 U/L (12-78) Alkaline Phosphatase 58 U/L (46-116) Total Creatine Kinase 91 U/L (26-308) Creatine Kinase MB 0.8 NG/ML (0.0-3.6) Creatine Kinase MB Relative Index 0.8 Troponin I 0.000 ng/mL (0.000-0.056) Total Protein 6.2 G/DL (6.4-8.2) Albumin 2.8 G/DL (3.4-5.0) Globulin 3.4 g/dL Albumin/Globulin Ratio 0.8 (1.0-2.7) Urine Color Yellow Urine Appearance Clear Urine pH 5 (4.5-8.0) Urine Specific [place] 1.025 (1.005-1.035) Urine Protein 3+ (NEGATIVE) Urine Glucose (UA) 1+ (NEGATIVE) Urine Ketones 1+ (NEGATIVE) Urine Blood 3+ (NEGATIVE) Urine Nitrite Negative (NEGATIVE) Urine Bilirubin Negative (NEGATIVE) Urine Urobilinogen 1 MG/DL (0.0-1.0) Urine Leukocyte Esterase 1+ (NEGATIVE) Urine RBC 2-4 /HPF (0 - 0) Urine WBC 2-4 /HPF (0 - 0) Urine Squamous Epithelial Cells Few /LPF (NONE/OCC) Urine Bacteria Few /HPF (NONE) Arterial Blood pH 7.167 (7.350-7.450) Arterial Blood Partial Pressure CO2 22.1 mmHg (35.0-45.0) Arterial Blood Partial Pressure O2 148.5 mmHg (75.0-100.0) Arterial Blood HCO3 7.8 mmol/L (22.0-26.0) Arterial Blood Oxygen Saturation 97.4 % (95-100) Arterial Blood Base Excess -19.0 (-2-2) Uvaldo Test Positive Test 02/08/19 00:49 02/08/19 01:10 02/08/19 03:00 02/08/19 05:31 Lab Scanned Report Blood Bank/Transfusion Sodium Level 137 MMOL/L (136-145) 140 MMOL/L (136-145) Potassium Level 4.8 MMOL/L (3.5-5.1) 4.7 MMOL/L (3.5-5.1) Chloride Level 105 MMOL/L (98-107) 113 MMOL/L (98-107) Carbon Dioxide Level 14 MMOL/L (21-32) 16 MMOL/L (21-32) Anion Gap 18 mmol/L (5-15) 11 mmol/L (5-15) Blood Urea Nitrogen 35 mg/dL (7-18) 30 mg/dL (7-18) Creatinine 1.7 MG/DL (0.55-1.30) 1.1 MG/DL (0.55-1.30) Estimat Glomerular Filtration Rate mL/min (>60) mL/min (>60) Glucose Level 329 MG/DL (74-106) 228 MG/DL (74-106) Calcium Level 8.4 MG/DL (8.5-10.1) 6.2 MG/DL (8.5-10.1) Thyroid Stimulating Hormone (TSH) 1.847 uiU/mL (0.358-3.740) Free Thyroxine 1.17 NG/DL (0.76-1.46) White Blood Count 21.5 K/UL (4.8-10.8) Red Blood Count 2.56 M/UL (4.70-6.10) Hemoglobin 8.1 G/DL (14.2-18.0) Hematocrit 23.6 % (42.0-52.0) Mean Corpuscular Volume 92 FL (80-99) Mean Corpuscular Hemoglobin 31.6 PG (27.0-31.0) Mean Corpuscular Hemoglobin Concent 34.3 G/DL (32.0-36.0) Red Cell Distribution Width 13.1 % (11.6-14.8) Platelet Count 166 K/UL (150-450) Mean Platelet Volume 5.4 FL (6.5-10.1) Neutrophils (%) (Auto) % (45.0-75.0) Lymphocytes (%) (Auto) % (20.0-45.0) Monocytes (%) (Auto) % (1.0-10.0) Eosinophils (%) (Auto) % (0.0-3.0) Basophils (%) (Auto) % (0.0-2.0) Arterial Blood pH 7.330 (7.350-7.450) Arterial Blood Partial Pressure CO2 31.3 mmHg (35.0-45.0) Arterial Blood Partial Pressure O2 141.7 mmHg (75.0-100.0) Arterial Blood HCO3 16.1 mmol/L (22.0-26.0) Arterial Blood Oxygen Saturation 98.1 % (95-100) Arterial Blood Base Excess -8.7 (-2-2) Uvaldo Test Positive Test 02/08/19 08:40 02/08/19 11:30 02/08/19 14:05 02/08/19 14:15 White Blood Count 20.5 K/UL (4.8-10.8) 19.3 K/UL (4.8-10.8) Red Blood Count 5.27 M/UL (4.70-6.10) 4.83 M/UL (4.70-6.10) Hemoglobin 16.0 G/DL (14.2-18.0) 14.9 G/DL (14.2-18.0) Hematocrit 47.3 % (42.0-52.0) 43.5 % (42.0-52.0) Mean Corpuscular Volume 90 FL (80-99) 90 FL (80-99) Mean Corpuscular Hemoglobin 30.5 PG (27.0-31.0) 30.9 PG (27.0-31.0) Mean Corpuscular Hemoglobin Concent 33.9 G/DL (32.0-36.0) 34.3 G/DL (32.0-36.0) Red Cell Distribution Width 12.6 % (11.6-14.8) 13.0 % (11.6-14.8) Platelet Count 166 K/UL (150-450) 178 K/UL (150-450) Mean Platelet Volume 5.6 FL (6.5-10.1) 5.5 FL (6.5-10.1) Neutrophils (%) (Auto) % (45.0-75.0) % (45.0-75.0) Lymphocytes (%) (Auto) % (20.0-45.0) % (20.0-45.0) Monocytes (%) (Auto) % (1.0-10.0) % (1.0-10.0) Eosinophils (%) (Auto) % (0.0-3.0) % (0.0-3.0) Basophils (%) (Auto) % (0.0-2.0) % (0.0-2.0) Differential Total Cells Counted 100 100 Neutrophils % (Manual) 89 % (45-75) 88 % (45-75) Lymphocytes % (Manual) 8 % (20-45) 6 % (20-45) Monocytes % (Manual) 3 % (1-10) 4 % (1-10) Eosinophils % (Manual) 0 % (0-3) 0 % (0-3) Basophils % (Manual) 0 % (0-2) 0 % (0-2) Band Neutrophils 0 % (0-8) 2 % (0-8) Platelet Estimate Adequate Adequate Platelet Morphology Normal Normal Red Blood Cell Morphology Normal Normal Sodium Level 138 MMOL/L (136-145) Potassium Level 4.7 MMOL/L (3.5-5.1) Chloride Level 110 MMOL/L (98-107) Carbon Dioxide Level 20 MMOL/L (21-32) Anion Gap 8 mmol/L (5-15) Blood Urea Nitrogen 23 mg/dL (7-18) Creatinine 0.9 MG/DL (0.55-1.30) Estimat Glomerular Filtration Rate mL/min (>60) Glucose Level 132 MG/DL (74-106) Hemoglobin A1c 6.7 % (4.3-6.0) Lactic Acid Level 3.00 mmol/L (0.4-2.0) 1.80 mmol/L (0.66-2.22) Uric Acid 5.3 MG/DL (2.6-7.2) Calcium Level 6.8 MG/DL (8.5-10.1) Phosphorus Level 3.5 MG/DL (2.5-4.9) Magnesium Level 2.4 MG/DL (1.8-2.4) Iron Level 79 ug/dL (50-175) Total Iron Binding Capacity 194 ug/dL (250-450) Percent Iron Saturation 41 % (15-50) Unsaturated Iron Binding 115 ug/dL (112-346) Ferritin 423 NG/ML (8-388) Total Bilirubin 1.6 MG/DL (0.2-1.0) Direct Bilirubin 0.3 MG/DL (0.0-0.3) Aspartate Amino Transf (AST/SGOT) 376 U/L (15-37) Alanine Aminotransferase (ALT/SGPT) 95 U/L (12-78) Alkaline Phosphatase 43 U/L (46-116) Total Protein 5.9 G/DL (6.4-8.2) Albumin 2.8 G/DL (3.4-5.0) Globulin 3.1 g/dL Albumin/Globulin Ratio 0.9 (1.0-2.7) Triglycerides Level 65 MG/DL (30-150) Cholesterol Level 86 MG/DL (< 200) LDL Cholesterol 40 mg/dL (<100) HDL Cholesterol 35 MG/DL (40-60) Cholesterol/HDL Ratio 2.5 (3.3-4.4) Lipase 67 U/L (73-393) Vitamin B12 Level 671 PG/ML (193-986) Folate 11.9 NG/ML (8.6-58.9) Acetone Level Negative (NEGATIVE) Arterial Blood pH 7.291 (7.350-7.450) Arterial Blood Partial Pressure CO2 38.3 mmHg (35.0-45.0) Arterial Blood Partial Pressure O2 323.1 mmHg (75.0-100.0) Arterial Blood HCO3 18.0 mmol/L (22.0-26.0) Arterial Blood Oxygen Saturation 99.4 % (95-100) Arterial Blood Base Excess -7.9 (-2-2) Uvaldo Test Positive Test 02/08/19 17:12 02/08/19 20:15 02/09/19 04:13 02/09/19 08:00 Arterial Blood pH 7.412 (7.350-7.450) Arterial Blood Partial Pressure CO2 28.6 mmHg (35.0-45.0) Arterial Blood Partial Pressure O2 157.3 mmHg (75.0-100.0) Arterial Blood HCO3 17.8 mmol/L (22.0-26.0) Arterial Blood Oxygen Saturation 98.8 % (95-100) Arterial Blood Base Excess -5.3 (-2-2) Uvaldo Test Positive White Blood Count 18.7 K/UL (4.8-10.8) 15.6 K/UL (4.8-10.8) Red Blood Count 4.40 M/UL (4.70-6.10) 4.26 M/UL (4.70-6.10) Hemoglobin 13.7 G/DL (14.2-18.0) 13.3 G/DL (14.2-18.0) Hematocrit 37.8 % (42.0-52.0) 38.6 % (42.0-52.0) Mean Corpuscular Volume 86 FL (80-99) 91 FL (80-99) Mean Corpuscular Hemoglobin 31.2 PG (27.0-31.0) 31.2 PG (27.0-31.0) Mean Corpuscular Hemoglobin Concent 36.3 G/DL (32.0-36.0) 34.5 G/DL (32.0-36.0) Red Cell Distribution Width 12.3 % (11.6-14.8) 13.5 % (11.6-14.8) Platelet Count 171 K/UL (150-450) 166 K/UL (150-450) Mean Platelet Volume 5.9 FL (6.5-10.1) 5.4 FL (6.5-10.1) Neutrophils (%) (Auto) 83.9 % (45.0-75.0) 79.5 % (45.0-75.0) Lymphocytes (%) (Auto) 10.4 % (20.0-45.0) 13.5 % (20.0-45.0) Monocytes (%) (Auto) 5.2 % (1.0-10.0) 6.4 % (1.0-10.0) Eosinophils (%) (Auto) 0.0 % (0.0-3.0) 0.2 % (0.0-3.0) Basophils (%) (Auto) 0.5 % (0.0-2.0) 0.4 % (0.0-2.0) Erythrocyte Sedimentation Rate 17 MM/HR (0-20) Prothrombin Time 13.1 SEC (9.30-11.50) Prothromb Time International Ratio 1.2 (0.9-1.1) Activated Partial Thromboplast Time 31 SEC (23-33) Sodium Level 140 MMOL/L (136-145) Potassium Level 3.9 MMOL/L (3.5-5.1) Chloride Level 110 MMOL/L (98-107) Carbon Dioxide Level 23 MMOL/L (21-32) Anion Gap 7 mmol/L (5-15) Blood Urea Nitrogen 11 mg/dL (7-18) Creatinine 0.7 MG/DL (0.55-1.30) Estimat Glomerular Filtration Rate mL/min (>60) Glucose Level 144 MG/DL (74-106) Lactic Acid Level 2.80 mmol/L (0.4-2.0) Uric Acid 2.8 MG/DL (2.6-7.2) Calcium Level 7.9 MG/DL (8.5-10.1) Phosphorus Level 2.2 MG/DL (2.5-4.9) Magnesium Level 2.0 MG/DL (1.8-2.4) Total Bilirubin 2.5 MG/DL (0.2-1.0) Direct Bilirubin 1.0 MG/DL (0.0-0.3) Aspartate Amino Transf (AST/SGOT) 996 U/L (15-37) Alanine Aminotransferase (ALT/SGPT) 194 U/L (12-78) Alkaline Phosphatase 43 U/L (46-116) Troponin I 0.331 ng/mL (0.000-0.056) C-Reactive Protein, Quantitative 29.3 mg/dL (0.00-0.90) Total Protein 4.8 G/DL (6.4-8.2) Albumin 2.3 G/DL (3.4-5.0) Globulin 2.5 g/dL Albumin/Globulin Ratio 0.9 (1.0-2.7) Amylase Level 116 U/L (25-115) Lipase 33 U/L (73-393) Test 02/09/19 12:45 Lactic Acid Level 1.00 mmol/L (0.66-2.22) Height (Feet): 5 Height (Inches): 5.00 Weight (Pounds): 124 General Appearance: alert Neck: normal alignment Cardiovascular: regular rhythm Respiratory/Chest: normal breath sounds Abdomen: no organomegaly Extremities: non-tender Objective ++ vent Hal Smith MD Feb 09, 2019 16:02
--- NOTE | 2019-02-09 16:41 | Cardiac Electrophysiology PN ---
Assessment/Plan Assessment/Plan 1. Tachycardia due to diabetic ketoacidosis and acute GI bleed. There is no evidence of atrial fibrillation. Treat the patient medically at this time due to sinus tachycardia, due to the patient's diabetic ketoacidosis, and GI bleed. No evidence of atrial fibrillation or atrial flutter or any SVT. EF 60% 2. Respiratory failure, on the ventilator. 3. Acute GI bleed, status post endoscopy by Dr. Conn that showed duodenal ulcer. Biopsy was performed. Patient received 4 units of blood transfusion. The patient had large duodenal bulb ulcer with hemorrhage that could not be controlled endoscopically.Stable now. No indication for surgery at this time per Dr. Baumann 4. Diabetic ketoacidosis, on insulin drip. 5. Accelerated hypertension. On IV hydralazine. DW Dr Ellis Subjective Subjective On the vent on Levophed in Sinus tach Objective Last 24 Hour Vital Signs Date Time Temp Pulse Resp B/P (MAP) Pulse Ox O2 Delivery O2 Flow Rate FiO2 02/09/19 14:40 107 21 30 02/09/19 13:12 101 23 30 02/09/19 13:05 150/72 02/09/19 12:00 Mechanical Ventilator 02/09/19 12:00 102 02/09/19 11:05 90 18 30 02/09/19 11:00 91 18 140/61 (87) 100 02/09/19 10:00 76 21 146/58 (87) 100 02/09/19 09:00 93 20 155/69 (97) 100 02/09/19 09:00 88 18 30 02/09/19 08:00 97.8 100 20 154/72 (99) 100 02/09/19 08:00 Mechanical Ventilator 02/09/19 08:00 79 02/09/19 07:30 85 18 139/64 (89) 100 02/09/19 07:17 79 18 30 02/09/19 07:00 83 18 148/65 (92) 100 02/09/19 06:30 79 19 156/60 (92) 100 02/09/19 06:23 159/58 02/09/19 06:00 89 20 159/58 (91) 100 02/09/19 05:10 80 18 30 02/09/19 05:00 90 20 165/64 (97) 100 02/09/19 04:30 76 18 148/64 (92) 100 02/09/19 04:00 Mechanical Ventilator 02/09/19 04:00 98.4 72 18 147/56 (86) 100 02/09/19 03:30 76 18 125/59 (81) 100 02/09/19 03:15 76 163/61 02/09/19 03:14 86 21 129/60 (83) 95 02/09/19 03:00 75 19 163/61 (95) 100 02/09/19 02:56 79 24 30 02/09/19 02:30 88 19 177/75 (109) 100 02/09/19 02:25 84 20 166/60 (95) 100 02/09/19 02:00 81 24 163/58 (93) 100 02/09/19 01:00 86 22 149/68 (95) 100 02/09/19 00:55 83 22 30 02/09/19 00:30 80 21 146/65 (92) 100 02/09/19 00:00 98.6 79 18 159/60 (93) 100 02/09/19 00:00 Mechanical Ventilator 02/09/19 00:00 81 02/08/19 23:49 162/76 02/08/19 23:30 90 21 162/76 (104) 100 02/08/19 23:15 79 19 30 02/08/19 23:00 84 19 161/65 (97) 100 02/08/19 22:30 82 18 149/68 (95) 100 02/08/19 22:00 82 20 145/68 (93) 100 02/08/19 21:30 89 28 145/64 (91) 100 02/08/19 21:21 89 170/70 02/08/19 21:00 89 20 170/70 (103) 100 02/08/19 20:59 84 20 30 02/08/19 20:21 92 22 161/74 (103) 99 02/08/19 20:00 99.9 95 23 162/98 (119) 100 02/08/19 20:00 Mechanical Ventilator 02/08/19 19:29 96 02/08/19 19:00 90 22 30 02/08/19 19:00 103 21 163/75 (104) 99 02/08/19 18:00 89 24 160/71 (100) 100 02/08/19 17:45 149/75 02/08/19 17:30 30 02/08/19 17:10 100 28 40 02/08/19 17:00 87 27 149/75 (99) 100 Intake and Output 02/08/19 02/09/19 19:00 07:00 Intake Total 1235.50 ml 759.0 ml Output Total 950 ml 580 ml Balance 285.50 ml 179.0 ml Intake IV Total 1235.50 ml 759.0 ml Output Urine Total 950 ml 580 ml # Voids 10 # Bowel Movements 12 5 Laboratory Tests Test 02/08/19 17:12 02/08/19 20:15 02/09/19 04:13 02/09/19 08:00 Arterial Blood pH 7.412 (7.350-7.450) Pending Arterial Blood Partial Pressure CO2 28.6 mmHg (35.0-45.0) L Pending Arterial Blood Partial Pressure O2 157.3 mmHg (75.0-100.0) H Pending Arterial Blood HCO3 17.8 mmol/L (22.0-26.0) *L Pending Arterial Blood Oxygen Saturation 98.8 % (95-100) Pending Arterial Blood Base Excess -5.3 (-2-2) L Pending Uvaldo Test Positive Pending White Blood Count 18.7 K/UL (4.8-10.8) H 15.6 K/UL (4.8-10.8) H Red Blood Count 4.40 M/UL (4.70-6.10) L 4.26 M/UL (4.70-6.10) L Hemoglobin 13.7 G/DL (14.2-18.0) L 13.3 G/DL (14.2-18.0) L Hematocrit 37.8 % (42.0-52.0) L 38.6 % (42.0-52.0) L Mean Corpuscular Volume 86 FL (80-99) 91 FL (80-99) Mean Corpuscular Hemoglobin 31.2 PG (27.0-31.0) H 31.2 PG (27.0-31.0) H Mean Corpuscular Hemoglobin Concent 36.3 G/DL (32.0-36.0) H 34.5 G/DL (32.0-36.0) Red Cell Distribution Width 12.3 % (11.6-14.8) 13.5 % (11.6-14.8) Platelet Count 171 K/UL (150-450) 166 K/UL (150-450) Mean Platelet Volume 5.9 FL (6.5-10.1) L 5.4 FL (6.5-10.1) L Neutrophils (%) (Auto) 83.9 % (45.0-75.0) H 79.5 % (45.0-75.0) H Lymphocytes (%) (Auto) 10.4 % (20.0-45.0) L 13.5 % (20.0-45.0) L Monocytes (%) (Auto) 5.2 % (1.0-10.0) 6.4 % (1.0-10.0) Eosinophils (%) (Auto) 0.0 % (0.0-3.0) 0.2 % (0.0-3.0) Basophils (%) (Auto) 0.5 % (0.0-2.0) 0.4 % (0.0-2.0) Erythrocyte Sedimentation Rate 17 MM/HR (0-20) Prothrombin Time 13.1 SEC (9.30-11.50) H Prothromb Time International Ratio 1.2 (0.9-1.1) H Activated Partial Thromboplast Time 31 SEC (23-33) Sodium Level 140 MMOL/L (136-145) Potassium Level 3.9 MMOL/L (3.5-5.1) Chloride Level 110 MMOL/L (98-107) H Carbon Dioxide Level 23 MMOL/L (21-32) Anion Gap 7 mmol/L (5-15) Blood Urea Nitrogen 11 mg/dL (7-18) Creatinine 0.7 MG/DL (0.55-1.30) Estimat Glomerular Filtration Rate mL/min (>60) Glucose Level 144 MG/DL (74-106) H Lactic Acid Level 2.80 mmol/L (0.4-2.0) H Uric Acid 2.8 MG/DL (2.6-7.2) Calcium Level 7.9 MG/DL (8.5-10.1) L Phosphorus Level 2.2 MG/DL (2.5-4.9) L Magnesium Level 2.0 MG/DL (1.8-2.4) Total Bilirubin 2.5 MG/DL (0.2-1.0) H Direct Bilirubin 1.0 MG/DL (0.0-0.3) H Aspartate Amino Transf (AST/SGOT) 996 U/L (15-37) H Alanine Aminotransferase (ALT/SGPT) 194 U/L (12-78) H Alkaline Phosphatase 43 U/L (46-116) L Troponin I 0.331 ng/mL (0.000-0.056) C-Reactive Protein, Quantitative 29.3 mg/dL (0.00-0.90) H Total Protein 4.8 G/DL (6.4-8.2) L Albumin 2.3 G/DL (3.4-5.0) L Globulin 2.5 g/dL Albumin/Globulin Ratio 0.9 (1.0-2.7) L Amylase Level 116 U/L (25-115) H Lipase 33 U/L (73-393) L Test 02/09/19 12:45 Lactic Acid Level 1.00 mmol/L (0.66-2.22) Microbiology Date/Time Source Procedure Growth Status 02/07/19 23:17 Blood Blood Culture - Preliminary NO GROWTH AFTER 24 HOURS Resulted 02/07/19 23:02 Blood Blood Culture - Preliminary NO GROWTH AFTER 24 HOURS Resulted 02/08/19 13:30 Sputum Gram Stain - Final Resulted 02/08/19 13:30 Sputum Sputum Culture Pending Resulted 02/08/19 00:56 Rectum Received Objective HEAD AND NECK: He is orally intubated. No JVD. LUNGS: Decreased breath sounds. CARDIOVASCULAR: Tachycardic. S1 and S2 with no gallop. ABDOMEN: Soft. EXTREMITIES: No pitting edema. Very poor feet hygiene. Matthew Kent MD Feb 09, 2019 16:41
--- NOTE | 2019-02-09 18:19 | Surgery Progress Note ---
Surgery Progress Note Subjective Additional Comments no acute events h/h stable more awake and responsive today no active bleeding noted Objective Last 24 Hour Vital Signs Date Time Temp Pulse Resp B/P (MAP) Pulse Ox O2 Delivery O2 Flow Rate FiO2 02/09/19 17:11 108 23 30 02/09/19 14:40 107 21 30 02/09/19 13:12 101 23 30 02/09/19 13:05 150/72 02/09/19 12:00 Mechanical Ventilator 02/09/19 12:00 102 02/09/19 11:05 90 18 30 02/09/19 11:00 91 18 140/61 (87) 100 02/09/19 10:00 76 21 146/58 (87) 100 02/09/19 09:00 93 20 155/69 (97) 100 02/09/19 09:00 88 18 30 02/09/19 08:00 97.8 100 20 154/72 (99) 100 02/09/19 08:00 Mechanical Ventilator 02/09/19 08:00 79 02/09/19 07:30 85 18 139/64 (89) 100 02/09/19 07:17 79 18 30 02/09/19 07:00 83 18 148/65 (92) 100 02/09/19 06:30 79 19 156/60 (92) 100 02/09/19 06:23 159/58 02/09/19 06:00 89 20 159/58 (91) 100 02/09/19 05:10 80 18 30 02/09/19 05:00 90 20 165/64 (97) 100 02/09/19 04:30 76 18 148/64 (92) 100 02/09/19 04:00 Mechanical Ventilator 02/09/19 04:00 98.4 72 18 147/56 (86) 100 02/09/19 03:30 76 18 125/59 (81) 100 02/09/19 03:15 76 163/61 02/09/19 03:14 86 21 129/60 (83) 95 02/09/19 03:00 75 19 163/61 (95) 100 02/09/19 02:56 79 24 30 02/09/19 02:30 88 19 177/75 (109) 100 02/09/19 02:25 84 20 166/60 (95) 100 02/09/19 02:00 81 24 163/58 (93) 100 02/09/19 01:00 86 22 149/68 (95) 100 02/09/19 00:55 83 22 30 02/09/19 00:30 80 21 146/65 (92) 100 02/09/19 00:00 98.6 79 18 159/60 (93) 100 02/09/19 00:00 Mechanical Ventilator 02/09/19 00:00 81 02/08/19 23:49 162/76 02/08/19 23:30 90 21 162/76 (104) 100 02/08/19 23:15 79 19 30 02/08/19 23:00 84 19 161/65 (97) 100 02/08/19 22:30 82 18 149/68 (95) 100 02/08/19 22:00 82 20 145/68 (93) 100 02/08/19 21:30 89 28 145/64 (91) 100 02/08/19 21:21 89 170/70 02/08/19 21:00 89 20 170/70 (103) 100 02/08/19 20:59 84 20 30 02/08/19 20:21 92 22 161/74 (103) 99 02/08/19 20:00 99.9 95 23 162/98 (119) 100 02/08/19 20:00 Mechanical Ventilator 02/08/19 19:29 96 02/08/19 19:00 90 22 30 02/08/19 19:00 103 21 163/75 (104) 99 I&O Intake and Output 02/08/19 02/09/19 19:00 07:00 Intake Total 1235.50 ml 759.0 ml Output Total 950 ml 580 ml Balance 285.50 ml 179.0 ml Intake IV Total 1235.50 ml 759.0 ml Output Urine Total 950 ml 580 ml # Voids 10 # Bowel Movements 12 5 Cardiovascular: RSR Respiratory: clear Abdomen: soft, distended, non-tender, present bowel sounds Extremities: no cyanosis Laboratory Tests Test 02/08/19 20:15 02/09/19 04:13 02/09/19 08:00 02/09/19 12:45 White Blood Count 18.7 K/UL (4.8-10.8) H 15.6 K/UL (4.8-10.8) H Red Blood Count 4.40 M/UL (4.70-6.10) L 4.26 M/UL (4.70-6.10) L Hemoglobin 13.7 G/DL (14.2-18.0) L 13.3 G/DL (14.2-18.0) L Hematocrit 37.8 % (42.0-52.0) L 38.6 % (42.0-52.0) L Mean Corpuscular Volume 86 FL (80-99) 91 FL (80-99) Mean Corpuscular Hemoglobin 31.2 PG (27.0-31.0) H 31.2 PG (27.0-31.0) H Mean Corpuscular Hemoglobin Concent 36.3 G/DL (32.0-36.0) H 34.5 G/DL (32.0-36.0) Red Cell Distribution Width 12.3 % (11.6-14.8) 13.5 % (11.6-14.8) Platelet Count 171 K/UL (150-450) 166 K/UL (150-450) Mean Platelet Volume 5.9 FL (6.5-10.1) L 5.4 FL (6.5-10.1) L Neutrophils (%) (Auto) 83.9 % (45.0-75.0) H 79.5 % (45.0-75.0) H Lymphocytes (%) (Auto) 10.4 % (20.0-45.0) L 13.5 % (20.0-45.0) L Monocytes (%) (Auto) 5.2 % (1.0-10.0) 6.4 % (1.0-10.0) Eosinophils (%) (Auto) 0.0 % (0.0-3.0) 0.2 % (0.0-3.0) Basophils (%) (Auto) 0.5 % (0.0-2.0) 0.4 % (0.0-2.0) Erythrocyte Sedimentation Rate 17 MM/HR (0-20) Prothrombin Time 13.1 SEC (9.30-11.50) H Prothromb Time International Ratio 1.2 (0.9-1.1) H Activated Partial Thromboplast Time 31 SEC (23-33) Sodium Level 140 MMOL/L (136-145) Potassium Level 3.9 MMOL/L (3.5-5.1) Chloride Level 110 MMOL/L (98-107) H Carbon Dioxide Level 23 MMOL/L (21-32) Anion Gap 7 mmol/L (5-15) Blood Urea Nitrogen 11 mg/dL (7-18) Creatinine 0.7 MG/DL (0.55-1.30) Estimat Glomerular Filtration Rate mL/min (>60) Glucose Level 144 MG/DL (74-106) H Lactic Acid Level 2.80 mmol/L (0.4-2.0) H 1.00 mmol/L (0.66-2.22) Uric Acid 2.8 MG/DL (2.6-7.2) Calcium Level 7.9 MG/DL (8.5-10.1) L Phosphorus Level 2.2 MG/DL (2.5-4.9) L Magnesium Level 2.0 MG/DL (1.8-2.4) Total Bilirubin 2.5 MG/DL (0.2-1.0) H Direct Bilirubin 1.0 MG/DL (0.0-0.3) H Aspartate Amino Transf (AST/SGOT) 996 U/L (15-37) H Alanine Aminotransferase (ALT/SGPT) 194 U/L (12-78) H Alkaline Phosphatase 43 U/L (46-116) L Troponin I 0.331 ng/mL (0.000-0.056) C-Reactive Protein, Quantitative 29.3 mg/dL (0.00-0.90) H Total Protein 4.8 G/DL (6.4-8.2) L Albumin 2.3 G/DL (3.4-5.0) L Globulin 2.5 g/dL Albumin/Globulin Ratio 0.9 (1.0-2.7) L Amylase Level 116 U/L (25-115) H Lipase 33 U/L (73-393) L Arterial Blood pH Pending Arterial Blood Partial Pressure CO2 Pending Arterial Blood Partial Pressure O2 Pending Arterial Blood HCO3 Pending Arterial Blood Oxygen Saturation Pending Arterial Blood Base Excess Pending Uvaldo Test Pending Plan Problems: (1) GIB (gastrointestinal bleeding) Assessment & Plan: 69-year-old male with acute gastrointestinal hemorrhage secondary to large duodenal ulcer. Patient had endoscopy with hemostasis just now identified a large ulcer with potential to rebleed. Need to control patient's hypertension and allow for even permissive hypotension if necessary Every 6 hours H&H trend transfuse as needed NG tube Will follow and be available in case patient rebleeds at which time he will require an exploration thank you for allowing me to participate in patient's care will follow with recommendations Adelso Baumann Feb 09, 2019 18:19
[2019-02-09] MEDS: D5 1/2NS 1,000 ML IV SCH ×2 (18:46→20:05)
--- NOTE | 2019-02-09 19:30 | NUR ---
NURSE NOTES: Received pt in no apparent distress. Awake, alert follow commands. Denies pain. Orally intubated with 7.5 ETT placed over left lip at 23 cm. Appears to be tolerating current vent settings of AC 18 TV 500 fiO2.30 peep 5 saturating 100%. Secretions small amt, white, chest sounds with scattered rhonchi. NSR on the scope,no ectopy. Skin slightly warm to touch, temp 99.9 axillary. Remains NPO. No BM, no melena noted at this time. PIV sites on LAC and LFA intact, IVF of D51/2NS running at 40ml/h; Protonix gtt at 8mg/h. Condom cath intact, UOP cloudy, dark ashlee. Skin very dry, both feet scaly and toenails thick and rough.Fall precautions in place. Plan of care explained to pt. Will continue to monitor for GI bleeding.
--- NOTE | 2019-02-09 21:05 | General Progress Note ---
Assessment/Plan Problem List: (1) ARF (acute renal failure) ICD Codes: N17.9 - Acute kidney failure, unspecified SNOMED: 43311968 Qualifiers: Qualified Codes: N17.9 - Acute kidney failure, unspecified (2) Sepsis ICD Codes: A41.9 - Sepsis, unspecified organism SNOMED: 12409062, 46448680 Qualifiers: Qualified Codes: A41.9 - Sepsis, unspecified organism; R65.20 - Severe sepsis without septic shock; N17.9 - Acute kidney failure, unspecified (3) Lactic acidosis ICD Codes: E87.2 - Acidosis SNOMED: 51412447, 52868881 (4) Anemia ICD Codes: D64.9 - Anemia, unspecified SNOMED: 931721678 (5) DKA (diabetic ketoacidoses) ICD Codes: E11.10 - Type 2 diabetes mellitus with ketoacidosis without coma SNOMED: 192383697, 12518645 Qualifiers: Qualified Codes: E13.10 - Other specified diabetes mellitus with ketoacidosis without coma (6) GIB (gastrointestinal bleeding) ICD Codes: K92.2 - Gastrointestinal hemorrhage, unspecified SNOMED: 84817709 (7) Acute respiratory failure ICD Codes: J96.00 - Acute respiratory failure, unspecified whether with hypoxia or hypercapnia SNOMED: 82297596 (8) Dehydration ICD Codes: E86.0 - Dehydration SNOMED: 51665579, 56035989 Status: unchanged Assessment/Plan: respirator failure intubated dka gi bleeding check h/h afebrile no acidodic Subjective ROS Limited/Unobtainable: Yes Allergies: Coded Allergies: No Known Allergies (Unverified , 02/07/19) Objective Last 24 Hour Vital Signs Date Time Temp Pulse Resp B/P (MAP) Pulse Ox O2 Delivery O2 Flow Rate FiO2 02/09/19 20:07 96 164/71 02/09/19 20:00 99.9 101 21 164/71 (102) 99 02/09/19 20:00 96 02/09/19 20:00 Mechanical Ventilator 02/09/19 19:30 101 20 30 02/09/19 19:00 103 20 171/71 (104) 100 02/09/19 18:40 154/68 02/09/19 18:00 111 24 154/68 (96) 100 02/09/19 17:11 108 23 30 02/09/19 17:00 98 22 160/70 (100) 100 02/09/19 16:00 98.0 104 22 176/68 (104) 100 02/09/19 16:00 102 02/09/19 16:00 Mechanical Ventilator 02/09/19 15:00 93 22 159/67 (97) 100 02/09/19 14:40 107 21 30 02/09/19 14:00 113 24 130/82 (98) 100 02/09/19 13:12 101 23 30 02/09/19 13:05 150/72 02/09/19 13:00 102 17 164/80 (108) 100 02/09/19 12:00 Mechanical Ventilator 02/09/19 12:00 100.0 88 18 151/64 (93) 100 02/09/19 12:00 102 02/09/19 11:05 90 18 30 02/09/19 11:00 91 18 140/61 (87) 100 02/09/19 10:00 76 21 146/58 (87) 100 02/09/19 09:00 93 20 155/69 (97) 100 02/09/19 09:00 88 18 30 02/09/19 08:00 97.8 100 20 154/72 (99) 100 02/09/19 08:00 Mechanical Ventilator 02/09/19 08:00 79 02/09/19 07:30 85 18 139/64 (89) 100 02/09/19 07:17 79 18 30 02/09/19 07:00 83 18 148/65 (92) 100 02/09/19 06:30 79 19 156/60 (92) 100 02/09/19 06:23 159/58 02/09/19 06:00 89 20 159/58 (91) 100 02/09/19 05:10 80 18 30 02/09/19 05:00 90 20 165/64 (97) 100 02/09/19 04:30 76 18 148/64 (92) 100 02/09/19 04:00 Mechanical Ventilator 02/09/19 04:00 98.4 72 18 147/56 (86) 100 02/09/19 03:30 76 18 125/59 (81) 100 02/09/19 03:15 76 163/61 02/09/19 03:14 86 21 129/60 (83) 95 02/09/19 03:00 75 19 163/61 (95) 100 02/09/19 02:56 79 24 30 02/09/19 02:30 88 19 177/75 (109) 100 02/09/19 02:25 84 20 166/60 (95) 100 02/09/19 02:00 81 24 163/58 (93) 100 02/09/19 01:00 86 22 149/68 (95) 100 02/09/19 00:55 83 22 30 02/09/19 00:30 80 21 146/65 (92) 100 02/09/19 00:00 98.6 79 18 159/60 (93) 100 02/09/19 00:00 Mechanical Ventilator 02/09/19 00:00 81 02/08/19 23:49 162/76 02/08/19 23:30 90 21 162/76 (104) 100 02/08/19 23:15 79 19 30 02/08/19 23:00 84 19 161/65 (97) 100 02/08/19 22:30 82 18 149/68 (95) 100 02/08/19 22:00 82 20 145/68 (93) 100 02/08/19 21:30 89 28 145/64 (91) 100 02/08/19 21:21 89 170/70 Intake and Output 02/08/19 02/09/19 19:00 07:00 Intake Total 1235.50 ml 784.0 ml Output Total 950 ml 580 ml Balance 285.50 ml 204.0 ml IV Total 1235.50 ml 784.0 ml Output Urine Total 950 ml 580 ml # Voids 10 # Bowel Movements 12 5 Laboratory Tests 02/09/19 04:13: White Blood Count 15.6H, Red Blood Count 4.26L, Hemoglobin 13.3L, Hematocrit 38.6L, Mean Corpuscular Volume 91, Mean Corpuscular Hemoglobin 31.2H, Mean Corpuscular Hemoglobin Concent 34.5, Red Cell Distribution Width 13.5, Platelet Count 166, Mean Platelet Volume 5.4L, Neutrophils (%) (Auto) 79.5H, Lymphocytes (%) (Auto) 13.5L, Monocytes (%) (Auto) 6.4, Eosinophils (%) (Auto) 0.2, Basophils (%) (Auto) 0.4, Erythrocyte Sedimentation Rate 17, Prothrombin Time 13.1H, Prothromb Time International Ratio 1.2H, Activated Partial Thromboplast Time 31, Sodium Level 140, Potassium Level 3.9, Chloride Level 110H, Carbon Dioxide Level 23, Anion Gap 7, Blood Urea Nitrogen 11, Creatinine 0.7, Estimat Glomerular Filtration Rate , Glucose Level 144H, Lactic Acid Level 2.80H, Uric Acid 2.8, Calcium Level 7.9L, Phosphorus Level 2.2L, Magnesium Level 2.0, Total Bilirubin 2.5H, Direct Bilirubin 1.0H, Aspartate Amino Transf (AST/SGOT) 996H, Alanine Aminotransferase (ALT/SGPT) 194H, Alkaline Phosphatase 43L, Troponin I 0.331H, C-Reactive Protein, Quantitative 29.3H, Total Protein 4.8L, Albumin 2.3L , Globulin 2.5, Albumin/Globulin Ratio 0.9L, Amylase Level 116H, Lipase 33L 02/09/19 08:00: Arterial Blood pH [Pending], Arterial Blood Partial Pressure CO2 [Pending], Arterial Blood Partial Pressure O2 [Pending], Arterial Blood HCO3 [Pending], Arterial Blood Oxygen Saturation [Pending], Arterial Blood Base Excess [Pending] , Uvaldo Test [Pending] 02/09/19 12:45: Lactic Acid Level 1.00 Height (Feet): 5 Height (Inches): 5.00 Weight (Pounds): 124 General Appearance: lethargic Cardiovascular: normal rate Harvey Gee MD Feb 09, 2019 21:05
--- NOTE | 2019-02-09 22:00 | NUR ---
NURSE NOTES: Awake but calm, watches TV. VSS, no distress.
--- NOTE | 2019-02-09 22:47 | Pulmonolgy Critical Care Note ---
Critical Care - Asmt/Plan Assessment/Plan: Pulmonary CCM Progress Note HPI Patient is a 69-year-old male admitted with generalized weakness, altered mental status. He was [place] a bus stop when a friend called 911. Noted to have hemodynamically significant Gastrointestinal Bleed in the ED, Evidence of Sigmoid/Rectal thickening on CT abdomen, Urinary Tract Infection. Had significantly elevated Lactic Acid and Glucose Level (minimal Ketones in urine) , abnormal renal function. No history of trauma noted. No complaint of pain or shortness of breath. Tolerating weaning. Allergies: No Known Allergies Past Medical History: Diabetes All Other Systems: limited - Secondary to patient's condition Physical Exam Vital Signs Noted General Appearance: sedated on ventilator, chronically ill appearing Head: normocephalic, atraumatic Eyes: bilateral eye PERRL, bilateral eye EOMI ENT: normal pharynx, moist mucus membranes Neck: no LN Respiratory: chest non-tender, lungs clear, normal breath sounds Cardiovascular: regular rate, rhythm, no murmur, HS1, HS2 normal Gastrointestinal: normal bowel sounds, non tender, no mass, no organomegaly, no bruit, non-distended Musculoskeletal: back normal, normal range of motion Neurologic: sedated, grossly normal, no focal signs, no seizures Impression: Gastrointestinal bleed Anemia Possible Mesenteric Ischemia given degree of acidosis, possible Colitis given CT findings Sepsis Urinary Tract Infection Hypovolemia Acute kidney failure Lactic acidosis Diabetes ARF (acute renal failure) Plan ACVC ventilation Wean as tolerated IVF PRN Transfuse PRN ISS IV Antibiotics Monitor labs PPX EKG: Rhythm: NSR, no PVC's Chest X-Ray: no consolidation, no effusion, no pneumothorax, no acute cardiopulmonary disease, No acute disease CT Abdomen: Patient was noted to have concentric thickening Sigmoid colon and rectum Critical Care - Objective Last 24 Hour Vital Signs Date Time Temp Pulse Resp B/P (MAP) Pulse Ox O2 Delivery O2 Flow Rate FiO2 02/09/19 21:26 84 19 30 02/09/19 21:00 83 20 145/62 (89) 100 02/09/19 20:07 96 164/71 02/09/19 20:00 99.9 101 21 164/71 (102) 99 02/09/19 20:00 96 02/09/19 20:00 Mechanical Ventilator 02/09/19 19:30 101 20 30 02/09/19 19:00 103 20 171/71 (104) 100 02/09/19 18:40 154/68 02/09/19 18:00 111 24 154/68 (96) 100 02/09/19 17:11 108 23 30 02/09/19 17:00 98 22 160/70 (100) 100 02/09/19 16:00 98.0 104 22 176/68 (104) 100 02/09/19 16:00 102 02/09/19 16:00 Mechanical Ventilator 02/09/19 15:00 93 22 159/67 (97) 100 02/09/19 14:40 107 21 30 02/09/19 14:00 113 24 130/82 (98) 100 02/09/19 13:12 101 23 30 02/09/19 13:05 150/72 02/09/19 13:00 102 17 164/80 (108) 100 02/09/19 12:00 Mechanical Ventilator 02/09/19 12:00 100.0 88 18 151/64 (93) 100 02/09/19 12:00 102 02/09/19 11:05 90 18 30 02/09/19 11:00 91 18 140/61 (87) 100 02/09/19 10:00 76 21 146/58 (87) 100 02/09/19 09:00 93 20 155/69 (97) 100 02/09/19 09:00 88 18 30 02/09/19 08:00 97.8 100 20 154/72 (99) 100 02/09/19 08:00 Mechanical Ventilator 02/09/19 08:00 79 02/09/19 07:30 85 18 139/64 (89) 100 02/09/19 07:17 79 18 30 02/09/19 07:00 83 18 148/65 (92) 100 02/09/19 06:30 79 19 156/60 (92) 100 02/09/19 06:23 159/58 02/09/19 06:00 89 20 159/58 (91) 100 02/09/19 05:10 80 18 30 02/09/19 05:00 90 20 165/64 (97) 100 02/09/19 04:30 76 18 148/64 (92) 100 02/09/19 04:00 Mechanical Ventilator 02/09/19 04:00 98.4 72 18 147/56 (86) 100 02/09/19 03:30 76 18 125/59 (81) 100 02/09/19 03:15 76 163/61 02/09/19 03:14 86 21 129/60 (83) 95 02/09/19 03:00 75 19 163/61 (95) 100 02/09/19 02:56 79 24 30 02/09/19 02:30 88 19 177/75 (109) 100 02/09/19 02:25 84 20 166/60 (95) 100 02/09/19 02:00 81 24 163/58 (93) 100 02/09/19 01:00 86 22 149/68 (95) 100 02/09/19 00:55 83 22 30 02/09/19 00:30 80 21 146/65 (92) 100 02/09/19 00:00 98.6 79 18 159/60 (93) 100 02/09/19 00:00 Mechanical Ventilator 02/09/19 00:00 81 02/08/19 23:49 162/76 02/08/19 23:30 90 21 162/76 (104) 100 02/08/19 23:15 79 19 30 02/08/19 23:00 84 19 161/65 (97) 100 Micro: Microbiology Date/Time Source Procedure Growth Status 02/07/19 23:17 Blood Blood Culture - Preliminary NO GROWTH AFTER 24 HOURS Resulted 02/07/19 23:02 Blood Blood Culture - Preliminary NO GROWTH AFTER 24 HOURS Resulted 02/08/19 13:30 Sputum Gram Stain - Final Resulted 02/08/19 13:30 Sputum Sputum Culture Pending Resulted 02/08/19 00:56 Rectum Received Accucheck: 125 Critical Care - Subjective ROS Limited/Unobtainable: No Condition: improving FI02: 30 Vent Support Breath Rate: 18 Vent Support Mode: AC Vent Tidal Volume: 500 Sputum Amount: Small PEEP: 5.0 PIP: 17 I&O: Intake and Output 02/08/19 02/09/19 19:00 07:00 Intake Total 1235.50 ml 784.0 ml Output Total 950 ml 580 ml Balance 285.50 ml 204.0 ml IV Total 1235.50 ml 784.0 ml Output Urine Total 950 ml 580 ml # Voids 10 # Bowel Movements 12 5 ET-Tube: 7.5 ET Position: 22 Prince Gallagher MD Feb 09, 2019 22:47
[2019-02-10] VITALS (25 sets, daily range): BP systolic 142–181; BP diastolic 55–100
--- NOTE | 2019-02-10 | NUR ---
NURSE NOTES: Accucheck 123; no melena. Denies pain; afebrile VSS
[2019-02-10] MEDS: Enalaprilat 2.5mg/2ml Inj IV SCH ×5 (00:17→23:40)
[2019-02-10] MEDS: NovoLOG Insulin Flexpen SUBQ SCH ×5 (00:19→23:39)
--- NOTE | 2019-02-10 02:00 | NUR ---
NURSE NOTES: Sleeping, no distress, VSS. No melena noted
[2019-02-10] MEDS: Labetalol 5mg/ml 20ml vial IV PRN ×3 (02:36→22:44)
--- NOTE | 2019-02-10 02:36 | NUR ---
NURSE NOTES: Calm, asleep but BP elevated to 181/59. Labetalol 20 mg IVP given. Will continue to monitor
--- NOTE | 2019-02-10 04:00 | NUR ---
NURSE NOTES: Fully awake, alert,follow commands. Calm, cooperative. No melena noted. IV sites intact. Complete bed bath done. Both feet still dry and scaly, A&D ointment applied to both feet. Trimmed left fingernails; shaved as well. Right fingernails thick hard. Nail on right middle finger almost falling off. Afebrile, NSR but BP elevated.
[2019-02-10 04:25] LABS: BASOPHILS % (AUTO) 0.6 % (0.0-2.0); EOSINOPHILS % (AUTO) 0.7 % (0.0-3.0); HEMATOCRIT 33.8 % (42.0-52.0); HEMOGLOBIN 11.7 G/DL (14.2-18.0); MEAN CORPUSCULAR VOLUME 90 FL (80-99); MONOCYTES % (AUTO) 6.2 % (1.0-10.0); NEUTROPHILS % (AUTO) 79.6 % (45.0-75.0); PLATELET COUNT 191 K/UL (150-450); RED BLOOD COUNT 3.75 M/UL (4.70-6.10); RED CELL DISTRIBUTION WIDTH 13.1 % (11.6-14.8); WHITE BLOOD COUNT 14.4 K/UL (4.8-10.8)
[2019-02-10 05:24] LABS: ALANINE AMINOTRANSFERASE 232 U/L (12-78); ALBUMIN/GLOBULIN RATIO 0.7 (1.0-2.7); ALKALINE PHOSPHATASE 48 U/L (46-116); ANION GAP 6 mmol/L (5-15); ASPARTATE AMINO TRANSFERASE 965 U/L (15-37); BILIRUBIN,TOTAL 1.2 MG/DL (0.2-1.0); BLOOD UREA NITROGEN 5 mg/dL (7-18); CALCIUM 7.8 MG/DL (8.5-10.1); CARBON DIOXIDE 25 MMOL/L (21-32); CHLORIDE 108 MMOL/L (98-107); CREATININE 0.6 MG/DL (0.55-1.30); PHOSPHORUS 2.1 MG/DL (2.5-4.9); POTASSIUM 2.8 MMOL/L (3.5-5.1); SODIUM 139 MMOL/L (136-145)
[2019-02-10] MEDS: Piperacillin/Tazobactam 3.375 GM in NS 110 ML IVPB SCH ×3 (05:42→21:25)
[2019-02-10] MEDS: Pantoprazole 80 MG in NS 250 ML IV SCH ×2 (05:42→13:24)
[2019-02-10 05:58] LABS: BILIRUBIN,DIRECT 0.3 MG/DL (0.0-0.3)
--- NOTE | 2019-02-10 06:24 | General Progress Note ---
Assessment/Plan Problem List: (1) Sepsis ICD Codes: A41.9 - Sepsis, unspecified organism SNOMED: 23266709, 34156257 Qualifiers: Qualified Codes: A41.9 - Sepsis, unspecified organism; R65.20 - Severe sepsis without septic shock; N17.9 - Acute kidney failure, unspecified (2) Sinus tachycardia ICD Codes: R00.0 - Tachycardia, unspecified SNOMED: 32174703 (3) ARF (acute renal failure) ICD Codes: N17.9 - Acute kidney failure, unspecified SNOMED: 02623141 Qualifiers: Qualified Codes: N17.9 - Acute kidney failure, unspecified (4) Lactic acidosis ICD Codes: E87.2 - Acidosis SNOMED: 97039045, 46180295 (5) Esophageal varices ICD Codes: I85.00 - Esophageal varices without bleeding SNOMED: 17437834 Status: unchanged Assessment/Plan: no need for basal insulin for now continue Novolog sliding scale Subjective ROS Limited/Unobtainable: Yes Allergies: Coded Allergies: No Known Allergies (Unverified , 02/07/19) Subjective events noted glucose values are stable Item Value Date Time Bedside Blood Glucose 113 mg/dl 02/10/19 0605 Bedside Blood Glucose 127 mg/dl H 02/10/19 0019 Bedside Blood Glucose 125 mg/dl H 02/09/19 1843 Bedside Blood Glucose 142 mg/dl H 02/09/19 1303 Bedside Blood Glucose 173 mg/dl H 02/09/19 0625 Bedside Blood Glucose 182 mg/dl H 02/08/19 2349 Objective Last 24 Hour Vital Signs Date Time Temp Pulse Resp B/P (MAP) Pulse Ox O2 Delivery O2 Flow Rate FiO2 02/10/19 06:06 85 18 172/68 (102) 100 02/10/19 05:55 162/67 02/10/19 05:05 78 19 30 02/10/19 05:00 85 18 162/67 (98) 100 02/10/19 04:00 97.8 74 21 142/68 (92) 02/10/19 04:00 Mechanical Ventilator 02/10/19 04:00 85 02/10/19 03:00 76 19 160/88 (112) 100 02/10/19 03:00 75 18 30 02/10/19 02:36 89 181/59 02/10/19 02:00 84 18 181/59 (99) 100 02/10/19 01:17 90 19 30 02/10/19 01:00 83 18 152/60 (90) 100 02/10/19 00:17 176/82 02/10/19 00:00 98.2 89 19 176/82 (113) 100 02/10/19 00:00 87 02/10/19 00:00 Mechanical Ventilator 02/09/19 23:14 77 18 30 02/09/19 23:00 80 18 177/59 (98) 100 02/09/19 22:00 76 18 157/83 (107) 100 02/09/19 21:26 84 19 30 02/09/19 21:00 83 20 145/62 (89) 100 02/09/19 20:07 96 164/71 02/09/19 20:00 99.9 101 21 164/71 (102) 99 02/09/19 20:00 96 02/09/19 20:00 Mechanical Ventilator 02/09/19 19:30 101 20 30 02/09/19 19:00 103 20 171/71 (104) 100 02/09/19 18:40 154/68 02/09/19 18:00 111 24 154/68 (96) 100 02/09/19 17:11 108 23 30 02/09/19 17:00 98 22 160/70 (100) 100 02/09/19 16:00 98.0 104 22 176/68 (104) 100 02/09/19 16:00 102 02/09/19 16:00 Mechanical Ventilator 02/09/19 15:00 93 22 159/67 (97) 100 02/09/19 14:40 107 21 30 02/09/19 14:00 113 24 130/82 (98) 100 02/09/19 13:12 101 23 30 02/09/19 13:05 150/72 02/09/19 13:00 102 17 164/80 (108) 100 02/09/19 12:00 Mechanical Ventilator 02/09/19 12:00 100.0 88 18 151/64 (93) 100 02/09/19 12:00 102 02/09/19 11:05 90 18 30 02/09/19 11:00 91 18 140/61 (87) 100 02/09/19 10:00 76 21 146/58 (87) 100 02/09/19 09:00 93 20 155/69 (97) 100 02/09/19 09:00 88 18 30 02/09/19 08:00 97.8 100 20 154/72 (99) 100 02/09/19 08:00 Mechanical Ventilator 02/09/19 08:00 79 02/09/19 07:30 85 18 139/64 (89) 100 02/09/19 07:17 79 18 30 02/09/19 07:00 83 18 148/65 (92) 100 02/09/19 06:30 79 19 156/60 (92) 100 02/09/19 06:23 159/58 Intake and Output 02/09/19 02/10/19 19:00 07:00 Intake Total 402 ml 460.0 ml Output Total 450 ml 1115 ml Balance -48 ml -655.0 ml Intake Oral 0 ml IV Total 402 ml 460.0 ml Output Urine Total 450 ml 1115 ml # Bowel Movements 5 Laboratory Tests 02/09/19 08:00: Arterial Blood pH [Pending], Arterial Blood Partial Pressure CO2 [Pending], Arterial Blood Partial Pressure O2 [Pending], Arterial Blood HCO3 [Pending], Arterial Blood Oxygen Saturation [Pending], Arterial Blood Base Excess [Pending] , Uvaldo Test [Pending] 02/09/19 12:45: Lactic Acid Level 1.00 02/10/19 03:20: White Blood Count 14.4H, Red Blood Count 3.75L, Hemoglobin 11.7L, Hematocrit 33.8L, Mean Corpuscular Volume 90, Mean Corpuscular Hemoglobin 31.2H, Mean Corpuscular Hemoglobin Concent 34.6, Red Cell Distribution Width 13.1, Platelet Count 191, Mean Platelet Volume 5.6L, Neutrophils (%) (Auto) 79.6H, Lymphocytes (%) (Auto) 13.0L, Monocytes (%) (Auto) 6.2, Eosinophils (%) (Auto) 0.7, Basophils (%) (Auto) 0.6, Sodium Level 139, Potassium Level 2.8L, Chloride Level 108H, Carbon Dioxide Level 25, Anion Gap 6, Blood Urea Nitrogen 5L, Creatinine 0.6, Estimat Glomerular Filtration Rate , Glucose Level 104, Uric Acid 1.6L, Calcium Level 7.8L, Phosphorus Level 2.1L, Magnesium Level 1.9, Total Bilirubin 1.2H, Direct Bilirubin 0.3, Gamma Glutamyl Transpeptidase 29, Aspartate Amino Transf (AST/SGOT) 965H, Alanine Aminotransferase (ALT/SGPT) 232H , Alkaline Phosphatase 48, C-Reactive Protein, Quantitative 16.8H, Pro-B-Type Natriuretic Peptide 862H, Total Protein 5.0L, Albumin 2.0L, Globulin 3.0, Albumin/Globulin Ratio 0.7L Height (Feet): 5 Height (Inches): 5.00 Weight (Pounds): 120 General Appearance: lethargic Neck: normal alignment Cardiovascular: tachycardia Respiratory/Chest: decreased breath sounds Abdomen: normal bowel sounds Objective Current Medications Medications (Trade) Dose Ordered Sig/Manish Route PRN Reason Start Time Stop Time Status Last Admin Dose Admin Acetaminophen (Tylenol) 650 mg Q6H PRN ORAL Mild Pain/Temp > 100.5 02/08/19 09:00 03/10/19 08:59 Clotrimazole (Lotrimin) 1 applic THREE TIMES A DAY TOPIC 02/08/19 18:00 03/10/19 17:59 02/09/19 18:45 Dextrose (Dextrose 50%) 25 ml Q30M PRN IV Hypoglycemia 02/08/19 09:00 03/10/19 08:59 Dextrose (Dextrose 50%) 50 ml Q30M PRN IV Hypoglycemia 02/08/19 09:00 03/10/19 08:59 Dextrose/Sodium Chloride 1,000 ml @ 40 mls/hr Q24H IV 02/08/19 19:15 03/10/19 19:14 02/09/19 20:05 Enalaprilat (Vasotec) 2.5 mg EVERY 6 HOURS IV 02/08/19 18:00 03/10/19 17:59 02/10/19 05:55 Fentanyl Citrate 1000 mcg/Sodium Chloride 100 ml @ 0 mls/hr Q24H IV 02/08/19 19:32 02/15/19 19:31 Insulin Aspart (NovoLOG) Q6HR SUBQ 02/08/19 12:00 03/10/19 11:59 02/10/19 05:56 Labetalol HCl (Normodyne) 20 mg Q4H PRN IV SBP>150 02/08/19 13:22 03/10/19 13:21 02/10/19 02:36 Lorazepam (Ativan 2mg/ml 1ml) 1 mg Q4H PRN IV For Anxiety 02/08/19 12:00 02/15/19 11:59 02/08/19 21:21 Pantoprazole 80 mg/Sodium Chloride 250 ml @ 25 mls/hr Q10H IV 02/08/19 12:00 03/10/19 11:59 02/10/19 05:42 Piperacillin Sod/ Tazobactam Sod 3.375 gm/Sodium Chloride 110 ml @ 27.5 mls/hr EVERY 8 HOURS IVPB 02/08/19 12:00 02/13/19 11:59 02/10/19 05:42 Thiamine HCl 100 mg/Dextrose 56 ml @ 112 mls/hr Q24H IVPB 02/08/19 13:00 03/10/19 12:59 02/09/19 13:20 Jt Wellington MD Feb 10, 2019 06:23
--- NOTE | 2019-02-10 07:06 | NUR ---
HAND-OFF: Report given to Leonie ALEGRIA.
--- NOTE | 2019-02-10 07:23 | NUR ---
RESPIRATORY NOTE: Received pt on vent setting: AC 18-500-30%FiO2-5 peep. Pt is intubated with ETT size 7.5 @ 22cm lips line, secured by anchor fast. pt is awake, alert, Lao speaking, resting comfortably in the bed, no SOB or resp distress noted. Augusto clear diminished breath sounds, suctioned small amounts of thick nolan secretions without incidents. Alarms are set and audible, vent is plugged into the red outlet, ambu bag @bedside. will continue to monitor and sxn q2h and as needed.
--- NOTE | 2019-02-10 07:25 | NUR ---
NURSE NOTES: Received report from Vick ALEGRIA. Patient awake, A/o x3. pt intubated on ETT 7.5/22cm lip line vent with current settings: AC 18, VT 500, Fi02 30%, peep 5, saturation at 100%. Bilateral rhonchi. orally suction scant secretions, thick brown. abdomen distended, soft, non tender. No Bm this shift, pt remains NPO. pt afebrile. Bilateral wrist restraints noted, circulation check completed. condom cath draining ashlee urine. patient IV puffy and tender to touch, will replace as soon as possible. On Protonix drip at 25mls/hr, D5 1/2 NS at 40ml/hr. Will monitor patient for bleeding. Bed alarm on. Bed locked and in low position. skin -see assessment. Will continue plan of care.
--- NOTE | 2019-02-10 07:58 | NUR ---
NURSE NOTES:WOUND CARE NOTES:Pt presented on admission with non-blanchable erythema sacrum. Indurated area noted to R buttocks (L)3.5cm x (W)3.5cm. Both heels are non-blanchable with fluctuance. No other skin concerns noted. Tx.plan: Apply Moisture Barrier Paste to buttocks. Cover with Optifoam drsg. change every 3 days and prn. Apply Cavilon Skin BArrier to both heels. Cover each heel with Optifoam drsg. change every 7 days and prn. Reposition at least every 2hours or as tolerated. APM/LORRAINE mattress overlay. Off-load heels with pillow.
--- NOTE | 2019-02-10 08:20 | NUR ---
NURSE NOTES: Pt being weaned this AM CPAP, PS 10. BP 157/83. HR 88, RR 19, 02SAT 100%.
--- NOTE | 2019-02-10 08:40 | NUR ---
RESPIRATORY NOTE: Placed pt on CPAP PS 10, peep 5, 30%FiO2 per Dr. Gallagher's order. Pt is tolerating really well. RN Leonie made aware. Will continue to monitor.
--- NOTE | 2019-02-10 09:30 | NUR ---
RESPIRATORY NOTE: Changed to CPAP PS 8, peep 5, 30% FiO2. Pt is tolerating really well. No SOB or resp distress noted. Will continue to monitor pt. RAJI Hadley made aware.
--- NOTE | 2019-02-10 10:50 | NUR ---
RESPIRATORY NOTE: Extubated pt per Dr. Gallagher's order. RN Leonie at bedside and aware. Placed pt on cool aerosol 6L 28%FiO2. No stridor heard, pt is tolerating well, RR 21bpm, HR 93bpm, saturates 100%. Will continue to monitor pt.
--- NOTE | 2019-02-10 10:59 | Infectious Diseases Prog Note ---
Assessment/Plan Assessment/Plan IMPRESSION: Sepsis, systemic inflammatory response syndrome, GI bleeding Duodenal ulcer. Uncontrolled DM Lactic acidosis, Acute renal failure improving. Onychomycosis and tinea pedis, anemia, received blood transfusion, Elevated transaminase level. Acute respiratory failure RECOMMENDATION: We will continue Zosyn and topical clotrimazole If remains stable will stop Zosyn soon Follow up the culture and lab. Subjective ROS Limited/Unobtainable: Yes Constitutional: Reports: fever, other - low grade last night Respiratory: Reports: other - just extubated Allergies: Coded Allergies: No Known Allergies (Unverified , 02/07/19) Objective Vital Signs Last 24 Hour Vital Signs Date Time Temp Pulse Resp B/P (MAP) Pulse Ox O2 Delivery O2 Flow Rate FiO2 02/10/19 09:30 74 20 30 30 02/10/19 08:40 100 02/10/19 08:40 74 17 30 30 02/10/19 07:23 86 23 30 02/10/19 07:00 84 18 163/76 (105) 100 02/10/19 06:06 85 18 172/68 (102) 100 02/10/19 05:55 162/67 02/10/19 05:05 78 19 30 02/10/19 05:00 85 18 162/67 (98) 100 02/10/19 04:00 97.8 74 21 142/68 (92) 02/10/19 04:00 Mechanical Ventilator 02/10/19 04:00 85 02/10/19 03:00 76 19 160/88 (112) 100 02/10/19 03:00 75 18 30 02/10/19 02:36 89 181/59 02/10/19 02:00 84 18 181/59 (99) 100 02/10/19 01:17 90 19 30 02/10/19 01:00 83 18 152/60 (90) 100 02/10/19 00:17 176/82 02/10/19 00:00 98.2 89 19 176/82 (113) 100 02/10/19 00:00 87 02/10/19 00:00 Mechanical Ventilator 02/09/19 23:14 77 18 30 02/09/19 23:00 80 18 177/59 (98) 100 02/09/19 22:00 76 18 157/83 (107) 100 02/09/19 21:26 84 19 30 8/22/19 21:00 83 20 145/62 (89) 100 02/09/19 20:07 96 164/71 02/09/19 20:00 99.9 101 21 164/71 (102) 99 02/09/19 20:00 96 02/09/19 20:00 Mechanical Ventilator 02/09/19 19:30 101 20 30 02/09/19 19:00 103 20 171/71 (104) 100 02/09/19 18:40 154/68 02/09/19 18:00 111 24 154/68 (96) 100 02/09/19 17:11 108 23 30 02/09/19 17:00 98 22 160/70 (100) 100 02/09/19 16:00 98.0 104 22 176/68 (104) 100 02/09/19 16:00 102 02/09/19 16:00 Mechanical Ventilator 02/09/19 15:00 93 22 159/67 (97) 100 02/09/19 14:40 107 21 30 02/09/19 14:00 113 24 130/82 (98) 100 02/09/19 13:12 101 23 30 02/09/19 13:05 150/72 02/09/19 13:00 102 17 164/80 (108) 100 02/09/19 12:00 Mechanical Ventilator 02/09/19 12:00 100.0 88 18 151/64 (93) 100 02/09/19 12:00 102 02/09/19 11:05 90 18 30 02/09/19 11:00 91 18 140/61 (87) 100 Height (Feet): 5 Height (Inches): 5.00 Weight (Pounds): 120 General Appearance: no acute distress HEENT: mucous membranes moist Respiratory/Chest: lungs clear, other - Oxygen by mask Cardiovascular: normal rate Abdomen: soft, non tender Extremities: no edema Neurologic/Psychiatric: alert, responsive Microbiology Date/Time Source Procedure Growth Status 02/07/19 23:17 Blood Blood Culture - Preliminary NO GROWTH AFTER 48 HOURS Resulted 02/07/19 23:02 Blood Blood Culture - Preliminary NO GROWTH AFTER 48 HOURS Resulted 02/08/19 13:30 Sputum Gram Stain - Final Resulted 02/08/19 13:30 Sputum Sputum Culture - Preliminary NORMAL UPPER RESPIRATORY SOLO AT 24 ... Resulted 02/08/19 00:56 Nasal Nares MRSA Culture - Final NO METHICILLIN RESISTANT STAPH AUREUS... Complete 02/08/19 00:56 Rectum VRE Culture - Final NO VANCOMYCIN RESISTANT ENTEROCOCCUS ... Complete 02/08/19 00:56 Rectum - Final NO CARBAPENEM-RESISTANT ENTEROBACTERI... Complete Laboratory Tests Test 02/09/19 12:45 02/10/19 03:20 02/10/19 10:05 Lactic Acid Level 1.00 mmol/L (0.66-2.22) White Blood Count 14.4 K/UL (4.8-10.8) H Red Blood Count 3.75 M/UL (4.70-6.10) L Hemoglobin 11.7 G/DL (14.2-18.0) L Hematocrit 33.8 % (42.0-52.0) L Mean Corpuscular Volume 90 FL (80-99) Mean Corpuscular Hemoglobin 31.2 PG (27.0-31.0) H Mean Corpuscular Hemoglobin Concent 34.6 G/DL (32.0-36.0) Red Cell Distribution Width 13.1 % (11.6-14.8) Platelet Count 191 K/UL (150-450) Mean Platelet Volume 5.6 FL (6.5-10.1) L Neutrophils (%) (Auto) 79.6 % (45.0-75.0) H Lymphocytes (%) (Auto) 13.0 % (20.0-45.0) L Monocytes (%) (Auto) 6.2 % (1.0-10.0) Eosinophils (%) (Auto) 0.7 % (0.0-3.0) Basophils (%) (Auto) 0.6 % (0.0-2.0) Sodium Level 139 MMOL/L (136-145) Potassium Level 2.8 MMOL/L (3.5-5.1) L Chloride Level 108 MMOL/L (98-107) H Carbon Dioxide Level 25 MMOL/L (21-32) Anion Gap 6 mmol/L (5-15) Blood Urea Nitrogen 5 mg/dL (7-18) L Creatinine 0.6 MG/DL (0.55-1.30) Estimat Glomerular Filtration Rate mL/min (>60) Glucose Level 104 MG/DL (74-106) Uric Acid 1.6 MG/DL (2.6-7.2) L Calcium Level 7.8 MG/DL (8.5-10.1) L Phosphorus Level 2.1 MG/DL (2.5-4.9) L Magnesium Level 1.9 MG/DL (1.8-2.4) Total Bilirubin 1.2 MG/DL (0.2-1.0) H Direct Bilirubin 0.3 MG/DL (0.0-0.3) Gamma Glutamyl Transpeptidase 29 U/L (5-85) Aspartate Amino Transf (AST/SGOT) 965 U/L (15-37) H Alanine Aminotransferase (ALT/SGPT) 232 U/L (12-78) H Alkaline Phosphatase 48 U/L (46-116) C-Reactive Protein, Quantitative 16.8 mg/dL (0.00-0.90) H Pro-B-Type Natriuretic Peptide 862 pg/mL (0-125) H Total Protein 5.0 G/DL (6.4-8.2) L Albumin 2.0 G/DL (3.4-5.0) L Globulin 3.0 g/dL Albumin/Globulin Ratio 0.7 (1.0-2.7) L Arterial Blood pH 7.451 (7.350-7.450) Arterial Blood Partial Pressure CO2 34.6 mmHg (35.0-45.0) L Arterial Blood Partial Pressure O2 112.2 mmHg (75.0-100.0) H Arterial Blood HCO3 23.6 mmol/L (22.0-26.0) Arterial Blood Oxygen Saturation 97.7 % (95-100) Arterial Blood Base Excess 0 (-2-2) Uvaldo Test Positive Current Medications Medications (Trade) Dose Ordered Sig/Manish Route PRN Reason Start Time Stop Time Status Last Admin Dose Admin Acetaminophen (Tylenol) 650 mg Q6H PRN ORAL Mild Pain/Temp > 100.5 02/08/19 09:00 03/10/19 08:59 Clotrimazole (Lotrimin) 1 applic THREE TIMES A DAY TOPIC 02/08/19 18:00 03/10/19 17:59 02/10/19 08:16 Dextrose (Dextrose 50%) 25 ml Q30M PRN IV Hypoglycemia 02/08/19 09:00 03/10/19 08:59 Dextrose (Dextrose 50%) 50 ml Q30M PRN IV Hypoglycemia 02/08/19 09:00 03/10/19 08:59 Dextrose/Sodium Chloride 1,000 ml @ 40 mls/hr Q24H IV 02/08/19 19:15 03/10/19 19:14 02/09/19 20:05 Enalaprilat (Vasotec) 2.5 mg EVERY 6 HOURS IV 02/08/19 18:00 03/10/19 17:59 02/10/19 05:55 Fentanyl Citrate 1000 mcg/Sodium Chloride 100 ml @ 0 mls/hr Q24H IV 02/08/19 19:32 02/15/19 19:31 Insulin Aspart (NovoLOG) Q6HR SUBQ 02/08/19 12:00 03/10/19 11:59 02/10/19 05:56 Labetalol HCl (Normodyne) 20 mg Q4H PRN IV SBP>150 02/08/19 13:22 03/10/19 13:21 02/10/19 02:36 Lorazepam (Ativan 2mg/ml 1ml) 1 mg Q4H PRN IV For Anxiety 02/08/19 12:00 02/15/19 11:59 02/08/19 21:21 Pantoprazole 80 mg/Sodium Chloride 250 ml @ 25 mls/hr Q10H IV 02/08/19 12:00 03/10/19 11:59 02/10/19 05:42 Piperacillin Sod/ Tazobactam Sod 3.375 gm/Sodium Chloride 110 ml @ 27.5 mls/hr EVERY 8 HOURS IVPB 02/08/19 12:00 02/13/19 11:59 02/10/19 05:42 Potassium Phosphate 30 mm/ Sodium Chloride 285 ml @ 47.5 mls/hr ONCE ONCE IV 02/10/19 13:00 02/10/19 18:59 Potassium Chloride 100 ml @ 100 mls/hr Q1HR IVPB 02/10/19 09:00 02/10/19 12:59 02/10/19 09:37 Thiamine HCl 100 mg/Dextrose 56 ml @ 112 mls/hr Q24H IVPB 02/08/19 13:00 03/10/19 12:59 02/09/19 13:20 Fazal Basilio MD Feb 10, 2019 10:59
--- NOTE | 2019-02-10 12:00 | NUR ---
NURSE NOTES: Patient awake, A/o x3. pt on simple mask, cool aerosol 6L 28%. orally suction scant secretions. no respiratory distress noted. abdomen soft, non tender. pt remains NPO. pt afebrile. Bilateral wrist restraints noted, circulation check and active ROM done. condom cath draining ashlee urine. patient IV puffy and tender to touch, will replace as soon as possible. On Protonix drip at 25mls/hr, D5 1/2 NS at 40ml/hr. Will monitor patient for bleeding. Bed alarm on. Bed locked and in low position. skin -see assessment. Will continue plan of care. Addendum: 02/10/19 at 1906 by Leonie Pascual RN replaced iv LT and Rt hand 22G. patent and intact
--- NOTE | 2019-02-10 12:06 | General Progress Note ---
Assessment/Plan Problem List: (1) GIB (gastrointestinal bleeding) ICD Codes: K92.2 - Gastrointestinal hemorrhage, unspecified SNOMED: 87006538 Status: unchanged Assessment/Plan: extubated cont protonix drip cont monitoring for H&H keep npo CBC in am Subjective ROS Limited/Unobtainable: Yes Allergies: Coded Allergies: No Known Allergies (Unverified , 02/07/19) Objective Last 24 Hour Vital Signs Date Time Temp Pulse Resp B/P (MAP) Pulse Ox O2 Delivery O2 Flow Rate FiO2 02/10/19 11:34 174/84 02/10/19 11:00 85 27 174/84 (114) 100 02/10/19 10:50 Venturi Mask 6.0 28 02/10/19 10:00 88 21 168/72 (104) 100 02/10/19 09:30 74 20 30 30 02/10/19 09:00 86 21 157/83 (107) 100 02/10/19 08:40 100 02/10/19 08:40 74 17 30 30 02/10/19 08:00 99.1 92 23 161/64 (96) 100 02/10/19 08:00 Mechanical Ventilator 02/10/19 08:00 84 02/10/19 07:23 86 23 30 02/10/19 07:00 84 18 163/76 (105) 100 02/10/19 06:06 85 18 172/68 (102) 100 02/10/19 05:55 162/67 02/10/19 05:05 78 19 30 02/10/19 05:00 85 18 162/67 (98) 100 02/10/19 04:00 97.8 74 21 142/68 (92) 02/10/19 04:00 Mechanical Ventilator 02/10/19 04:00 85 02/10/19 03:00 76 19 160/88 (112) 100 02/10/19 03:00 75 18 30 02/10/19 02:36 89 181/59 02/10/19 02:00 84 18 181/59 (99) 100 02/10/19 01:17 90 19 30 02/10/19 01:00 83 18 152/60 (90) 100 02/10/19 00:17 176/82 02/10/19 00:00 98.2 89 19 176/82 (113) 100 02/10/19 00:00 87 02/10/19 00:00 Mechanical Ventilator 02/09/19 23:14 77 18 30 02/09/19 23:00 80 18 177/59 (98) 100 02/09/19 22:00 76 18 157/83 (107) 100 02/09/19 21:26 84 19 30 02/09/19 21:00 83 20 145/62 (89) 100 02/09/19 20:07 96 164/71 02/09/19 20:00 99.9 101 21 164/71 (102) 99 02/09/19 20:00 96 02/09/19 20:00 Mechanical Ventilator 02/09/19 19:30 101 20 30 02/09/19 19:00 103 20 171/71 (104) 100 02/09/19 18:40 154/68 02/09/19 18:00 111 24 154/68 (96) 100 02/09/19 17:11 108 23 30 02/09/19 17:00 98 22 160/70 (100) 100 02/09/19 16:00 98.0 104 22 176/68 (104) 100 02/09/19 16:00 102 02/09/19 16:00 Mechanical Ventilator 02/09/19 15:00 93 22 159/67 (97) 100 02/09/19 14:40 107 21 30 02/09/19 14:00 113 24 130/82 (98) 100 02/09/19 13:12 101 23 30 02/09/19 13:05 150/72 02/09/19 13:00 102 17 164/80 (108) 100 Intake and Output 02/09/19 02/10/19 18:59 06:59 Intake Total 362 ml 890.0 ml Output Total 445 ml 1155 ml Balance -83 ml -265.0 ml Intake Oral 0 ml IV Total 362 ml 890.0 ml Output Urine Total 445 ml 1155 ml # Bowel Movements 5 Laboratory Tests 02/09/19 12:45: Lactic Acid Level 1.00 02/10/19 03:20: White Blood Count 14.4H, Red Blood Count 3.75L, Hemoglobin 11.7L, Hematocrit 33.8L, Mean Corpuscular Volume 90, Mean Corpuscular Hemoglobin 31.2H, Mean Corpuscular Hemoglobin Concent 34.6, Red Cell Distribution Width 13.1, Platelet Count 191, Mean Platelet Volume 5.6L, Neutrophils (%) (Auto) 79.6H, Lymphocytes (%) (Auto) 13.0L, Monocytes (%) (Auto) 6.2, Eosinophils (%) (Auto) 0.7, Basophils (%) (Auto) 0.6, Sodium Level 139, Potassium Level 2.8L, Chloride Level 108H, Carbon Dioxide Level 25, Anion Gap 6, Blood Urea Nitrogen 5L, Creatinine 0.6, Estimat Glomerular Filtration Rate , Glucose Level 104, Uric Acid 1.6L, Calcium Level 7.8L, Phosphorus Level 2.1L, Magnesium Level 1.9, Total Bilirubin 1.2H, Direct Bilirubin 0.3, Gamma Glutamyl Transpeptidase 29, Aspartate Amino Transf (AST/SGOT) 965H, Alanine Aminotransferase (ALT/SGPT) 232H , Alkaline Phosphatase 48, C-Reactive Protein, Quantitative 16.8H, Pro-B-Type Natriuretic Peptide 862H, Total Protein 5.0L, Albumin 2.0L, Globulin 3.0, Albumin/Globulin Ratio 0.7L 02/10/19 10:05: Arterial Blood pH 7.451H, Arterial Blood Partial Pressure CO2 34.6L, Arterial Blood Partial Pressure O2 112.2H, Arterial Blood HCO3 23.6, Arterial Blood Oxygen Saturation 97.7, Arterial Blood Base Excess 0, Uvaldo Test Positive Height (Feet): 5 Height (Inches): 5.00 Weight (Pounds): 120 General Appearance: lethargic EENT: normal ENT inspection Neck: supple Cardiovascular: normal rate Respiratory/Chest: decreased breath sounds Abdomen: normal bowel sounds, non tender, soft Extremities: non-tender Kj Conn MD Feb 10, 2019 12:06
--- NOTE | 2019-02-10 12:25 | Nephrology Progress Note ---
Assessment/Plan Problem List: (1) ARF (acute renal failure) (2) Dehydration (3) Acute respiratory failure (4) Esophageal varices (5) GIB (gastrointestinal bleeding) Assessment Acute renal failure , Cr lower now intubated Dehydration Hyperglycemia high Lactate level esophageal bleed GI bleed . Plan Hydrate per GI Monitor lytes and renal parameters protonix Thiamin Weaning as possible Subjective ROS Limited/Unobtainable: Yes Objective Objective Last 24 Hour Vital Signs Date Time Temp Pulse Resp B/P (MAP) Pulse Ox O2 Delivery O2 Flow Rate FiO2 02/10/19 11:34 174/84 02/10/19 11:00 85 27 174/84 (114) 100 02/10/19 10:50 Venturi Mask 6.0 28 02/10/19 10:00 88 21 168/72 (104) 100 02/10/19 09:30 74 20 30 30 02/10/19 09:00 86 21 157/83 (107) 100 02/10/19 08:40 100 02/10/19 08:40 74 17 30 30 02/10/19 08:00 99.1 92 23 161/64 (96) 100 02/10/19 08:00 Mechanical Ventilator 02/10/19 08:00 84 02/10/19 07:23 86 23 30 02/10/19 07:00 84 18 163/76 (105) 100 02/10/19 06:06 85 18 172/68 (102) 100 02/10/19 05:55 162/67 02/10/19 05:05 78 19 30 02/10/19 05:00 85 18 162/67 (98) 100 02/10/19 04:00 97.8 74 21 142/68 (92) 02/10/19 04:00 Mechanical Ventilator 02/10/19 04:00 85 02/10/19 03:00 76 19 160/88 (112) 100 02/10/19 03:00 75 18 30 02/10/19 02:36 89 181/59 02/10/19 02:00 84 18 181/59 (99) 100 02/10/19 01:17 90 19 30 02/10/19 01:00 83 18 152/60 (90) 100 02/10/19 00:17 176/82 02/10/19 00:00 98.2 89 19 176/82 (113) 100 02/10/19 00:00 87 02/10/19 00:00 Mechanical Ventilator 02/09/19 23:14 77 18 30 02/09/19 23:00 80 18 177/59 (98) 100 02/09/19 22:00 76 18 157/83 (107) 100 02/09/19 21:26 84 19 30 02/09/19 21:00 83 20 145/62 (89) 100 02/09/19 20:07 96 164/71 02/09/19 20:00 99.9 101 21 164/71 (102) 99 02/09/19 20:00 96 02/09/19 20:00 Mechanical Ventilator 02/09/19 19:30 101 20 30 02/09/19 19:00 103 20 171/71 (104) 100 02/09/19 18:40 154/68 02/09/19 18:00 111 24 154/68 (96) 100 02/09/19 17:11 108 23 30 02/09/19 17:00 98 22 160/70 (100) 100 02/09/19 16:00 98.0 104 22 176/68 (104) 100 02/09/19 16:00 102 02/09/19 16:00 Mechanical Ventilator 02/09/19 15:00 93 22 159/67 (97) 100 02/09/19 14:40 107 21 30 02/09/19 14:00 113 24 130/82 (98) 100 02/09/19 13:12 101 23 30 02/09/19 13:05 150/72 02/09/19 13:00 102 17 164/80 (108) 100 Intake and Output 02/09/19 02/10/19 18:59 06:59 Intake Total 362 ml 890.0 ml Output Total 445 ml 1155 ml Balance -83 ml -265.0 ml Intake Oral 0 ml IV Total 362 ml 890.0 ml Output Urine Total 445 ml 1155 ml # Bowel Movements 5 Laboratory Tests 02/09/19 12:45: Lactic Acid Level 1.00 02/10/19 03:20: White Blood Count 14.4H, Red Blood Count 3.75L, Hemoglobin 11.7L, Hematocrit 33.8L, Mean Corpuscular Volume 90, Mean Corpuscular Hemoglobin 31.2H, Mean Corpuscular Hemoglobin Concent 34.6, Red Cell Distribution Width 13.1, Platelet Count 191, Mean Platelet Volume 5.6L, Neutrophils (%) (Auto) 79.6H, Lymphocytes (%) (Auto) 13.0L, Monocytes (%) (Auto) 6.2, Eosinophils (%) (Auto) 0.7, Basophils (%) (Auto) 0.6, Sodium Level 139, Potassium Level 2.8L, Chloride Level 108H, Carbon Dioxide Level 25, Anion Gap 6, Blood Urea Nitrogen 5L, Creatinine 0.6, Estimat Glomerular Filtration Rate , Glucose Level 104, Uric Acid 1.6L, Calcium Level 7.8L, Phosphorus Level 2.1L, Magnesium Level 1.9, Total Bilirubin 1.2H, Direct Bilirubin 0.3, Gamma Glutamyl Transpeptidase 29, Aspartate Amino Transf (AST/SGOT) 965H, Alanine Aminotransferase (ALT/SGPT) 232H , Alkaline Phosphatase 48, C-Reactive Protein, Quantitative 16.8H, Pro-B-Type Natriuretic Peptide 862H, Total Protein 5.0L, Albumin 2.0L, Globulin 3.0, Albumin/Globulin Ratio 0.7L 02/10/19 10:05: Arterial Blood pH 7.451H, Arterial Blood Partial Pressure CO2 34.6L, Arterial Blood Partial Pressure O2 112.2H, Arterial Blood HCO3 23.6, Arterial Blood Oxygen Saturation 97.7, Arterial Blood Base Excess 0, Uvaldo Test Positive Height (Feet): 5 Height (Inches): 5.00 Weight (Pounds): 120 General Appearance: no apparent distress EENT: other - intubated - vented Cardiovascular: normal rate Respiratory/Chest: decreased breath sounds Abdomen: distended Arturo Cruz MD Feb 10, 2019 12:25
[2019-02-10] MEDS ORDERED: Potassium Phosphate 30 MM in NS 275 ML IV ONE (13:00)
--- NOTE | 2019-02-10 13:43 | Cardiac Electrophysiology PN ---
Assessment/Plan Assessment/Plan 1. Tachycardia due to diabetic ketoacidosis and acute GI bleed. There is no evidence of atrial fibrillation. No evidence of atrial fibrillation or atrial flutter or any SVT. EF 60% 2. Respiratory failure, Extubated today 3. Acute GI bleed, status post endoscopy by Dr. Conn that showed duodenal ulcer. Biopsy was performed. Patient received 4 units of blood transfusion. The patient had large duodenal bulb ulcer with hemorrhage that could not be controlled endoscopically.Stable now. No indication for surgery at this time per Dr. Baumann 4. Diabetic ketoacidosis, on insulin drip. 5. Accelerated hypertension. On IV hydralazine. DW RN Subjective Subjective On the vent off Levophed in Sinus tach. Extubated at 10 am Objective Last 24 Hour Vital Signs Date Time Temp Pulse Resp B/P (MAP) Pulse Ox O2 Delivery O2 Flow Rate FiO2 02/10/19 11:34 174/84 02/10/19 11:00 85 27 174/84 (114) 100 02/10/19 10:50 Venturi Mask 6.0 28 02/10/19 10:00 88 21 168/72 (104) 100 02/10/19 09:30 74 20 30 30 02/10/19 09:00 86 21 157/83 (107) 100 02/10/19 08:40 100 02/10/19 08:40 74 17 30 30 02/10/19 08:00 99.1 92 23 161/64 (96) 100 02/10/19 08:00 Mechanical Ventilator 02/10/19 08:00 84 02/10/19 07:23 86 23 30 02/10/19 07:00 84 18 163/76 (105) 100 02/10/19 06:06 85 18 172/68 (102) 100 02/10/19 05:55 162/67 02/10/19 05:05 78 19 30 02/10/19 05:00 85 18 162/67 (98) 100 02/10/19 04:00 97.8 74 21 142/68 (92) 02/10/19 04:00 Mechanical Ventilator 02/10/19 04:00 85 02/10/19 03:00 76 19 160/88 (112) 100 02/10/19 03:00 75 18 30 02/10/19 02:36 89 181/59 02/10/19 02:00 84 18 181/59 (99) 100 02/10/19 01:17 90 19 30 02/10/19 01:00 83 18 152/60 (90) 100 02/10/19 00:17 176/82 02/10/19 00:00 98.2 89 19 176/82 (113) 100 02/10/19 00:00 87 02/10/19 00:00 Mechanical Ventilator 02/09/19 23:14 77 18 30 02/09/19 23:00 80 18 177/59 (98) 100 02/09/19 22:00 76 18 157/83 (107) 100 02/09/19 21:26 84 19 30 02/09/19 21:00 83 20 145/62 (89) 100 02/09/19 20:07 96 164/71 02/09/19 20:00 99.9 101 21 164/71 (102) 99 02/09/19 20:00 96 02/09/19 20:00 Mechanical Ventilator 02/09/19 19:30 101 20 30 02/09/19 19:00 103 20 171/71 (104) 100 02/09/19 18:40 154/68 02/09/19 18:00 111 24 154/68 (96) 100 02/09/19 17:11 108 23 30 02/09/19 17:00 98 22 160/70 (100) 100 02/09/19 16:00 98.0 104 22 176/68 (104) 100 02/09/19 16:00 102 02/09/19 16:00 Mechanical Ventilator 02/09/19 15:00 93 22 159/67 (97) 100 02/09/19 14:40 107 21 30 02/09/19 14:00 113 24 130/82 (98) 100 Intake and Output 02/09/19 02/10/19 18:59 06:59 Intake Total 362 ml 890.0 ml Output Total 445 ml 1155 ml Balance -83 ml -265.0 ml Intake Oral 0 ml IV Total 362 ml 890.0 ml Output Urine Total 445 ml 1155 ml # Bowel Movements 5 Laboratory Tests Test 02/10/19 03:20 02/10/19 10:05 White Blood Count 14.4 K/UL (4.8-10.8) H Red Blood Count 3.75 M/UL (4.70-6.10) L Hemoglobin 11.7 G/DL (14.2-18.0) L Hematocrit 33.8 % (42.0-52.0) L Mean Corpuscular Volume 90 FL (80-99) Mean Corpuscular Hemoglobin 31.2 PG (27.0-31.0) H Mean Corpuscular Hemoglobin Concent 34.6 G/DL (32.0-36.0) Red Cell Distribution Width 13.1 % (11.6-14.8) Platelet Count 191 K/UL (150-450) Mean Platelet Volume 5.6 FL (6.5-10.1) L Neutrophils (%) (Auto) 79.6 % (45.0-75.0) H Lymphocytes (%) (Auto) 13.0 % (20.0-45.0) L Monocytes (%) (Auto) 6.2 % (1.0-10.0) Eosinophils (%) (Auto) 0.7 % (0.0-3.0) Basophils (%) (Auto) 0.6 % (0.0-2.0) Sodium Level 139 MMOL/L (136-145) Potassium Level 2.8 MMOL/L (3.5-5.1) L Chloride Level 108 MMOL/L (98-107) H Carbon Dioxide Level 25 MMOL/L (21-32) Anion Gap 6 mmol/L (5-15) Blood Urea Nitrogen 5 mg/dL (7-18) L Creatinine 0.6 MG/DL (0.55-1.30) Estimat Glomerular Filtration Rate mL/min (>60) Glucose Level 104 MG/DL (74-106) Uric Acid 1.6 MG/DL (2.6-7.2) L Calcium Level 7.8 MG/DL (8.5-10.1) L Phosphorus Level 2.1 MG/DL (2.5-4.9) L Magnesium Level 1.9 MG/DL (1.8-2.4) Total Bilirubin 1.2 MG/DL (0.2-1.0) H Direct Bilirubin 0.3 MG/DL (0.0-0.3) Gamma Glutamyl Transpeptidase 29 U/L (5-85) Aspartate Amino Transf (AST/SGOT) 965 U/L (15-37) H Alanine Aminotransferase (ALT/SGPT) 232 U/L (12-78) H Alkaline Phosphatase 48 U/L (46-116) C-Reactive Protein, Quantitative 16.8 mg/dL (0.00-0.90) H Pro-B-Type Natriuretic Peptide 862 pg/mL (0-125) H Total Protein 5.0 G/DL (6.4-8.2) L Albumin 2.0 G/DL (3.4-5.0) L Globulin 3.0 g/dL Albumin/Globulin Ratio 0.7 (1.0-2.7) L Arterial Blood pH 7.451 (7.350-7.450) Arterial Blood Partial Pressure CO2 34.6 mmHg (35.0-45.0) L Arterial Blood Partial Pressure O2 112.2 mmHg (75.0-100.0) H Arterial Blood HCO3 23.6 mmol/L (22.0-26.0) Arterial Blood Oxygen Saturation 97.7 % (95-100) Arterial Blood Base Excess 0 (-2-2) Uvaldo Test Positive Microbiology Date/Time Source Procedure Growth Status 02/07/19 23:17 Blood Blood Culture - Preliminary NO GROWTH AFTER 48 HOURS Resulted 02/07/19 23:02 Blood Blood Culture - Preliminary NO GROWTH AFTER 48 HOURS Resulted 02/08/19 13:30 Sputum Gram Stain - Final Resulted 02/08/19 13:30 Sputum Sputum Culture - Preliminary NORMAL UPPER RESPIRATORY SOLO AT 24 ... Resulted 02/08/19 00:56 Nasal Nares MRSA Culture - Final NO METHICILLIN RESISTANT STAPH AUREUS... Complete 02/08/19 00:56 Rectum VRE Culture - Final NO VANCOMYCIN RESISTANT ENTEROCOCCUS ... Complete 02/08/19 00:56 Rectum - Final NO CARBAPENEM-RESISTANT ENTEROBACTERI... Complete Objective HEAD AND NECK: No JVD. LUNGS: Decreased breath sounds. CARDIOVASCULAR: Tachycardic. S1 and S2 with no gallop. ABDOMEN: Soft. EXTREMITIES: No pitting edema. Very poor feet hygiene. Matthew Kent MD Feb 10, 2019 13:43
--- NOTE | 2019-02-10 14:00 | NUR ---
NURSE NOTES: received order from MD Gabriel, CPT, PT YAN ALARCON TO CHAIR, BR
[2019-02-10] MEDS: Thiamine HCl 100 MG in D5W 55 ML IVPB SCH (15:11)
--- NOTE | 2019-02-10 15:35 | Hematology/Onc Progress Note ---
Assessment/Plan Assessment/Plan # Anemia due to underlying gi bleed, sp egd which showed duodenal ulceration, failed hemostasis --> surgery eval as needed, prn --> continue ppi --> coags slightly elevated, nsider vit K if persistent bleeding --> transfuse if hgb <7 --> no indication for surgery --> trend hgb 13-->11 # Leukocytosis with Sepsis, systemic inflammatory response syndrome --> monitor for improvement --> is on abx, zosyn per id --> per id recs # DKA with Uncontrolled DM --> on insulin sliding scale # Lactic acidosis, --> trend as needed, on ivf, thiamine, folate # Acute renal failure improving. --> sp fluids # Onychomycosis and tinea pedis, --> podiatry consulted # Elevated transaminase level due to etoh use --> trend as needed # Acute respiratory failure --> now extubated, breathing better The timing of this note does not necessarily reflect the time of the patient was seen. GREATLY APPRECIATE CONSULTATION. Subjective Allergies: Coded Allergies: No Known Allergies (Unverified , 02/07/19) Subjective 02/09: remains intubated, on vent, able to respond, in lao, to commands weaning today, h/h reviewed 02/10: icu, extubated, labs reviewed Objective Objective Current Medications Medications (Trade) Dose Ordered Sig/Manish Route PRN Reason Start Time Stop Time Status Last Admin Dose Admin Acetaminophen (Tylenol) 650 mg Q6H PRN ORAL Mild Pain/Temp > 100.5 02/08/19 09:00 03/10/19 08:59 Clotrimazole (Lotrimin) 1 applic THREE TIMES A DAY TOPIC 02/08/19 18:00 03/10/19 17:59 02/10/19 13:24 Dextrose (Dextrose 50%) 25 ml Q30M PRN IV Hypoglycemia 02/08/19 09:00 03/10/19 08:59 Dextrose (Dextrose 50%) 50 ml Q30M PRN IV Hypoglycemia 02/08/19 09:00 03/10/19 08:59 Dextrose/Sodium Chloride 1,000 ml @ 40 mls/hr Q24H IV 02/08/19 19:15 03/10/19 19:14 02/09/19 20:05 Enalaprilat (Vasotec) 2.5 mg EVERY 6 HOURS IV 02/08/19 18:00 03/10/19 17:59 02/10/19 11:34 Fentanyl Citrate 1000 mcg/Sodium Chloride 100 ml @ 0 mls/hr Q24H IV 02/08/19 19:32 02/15/19 19:31 Insulin Aspart (NovoLOG) Q6HR SUBQ 02/08/19 12:00 03/10/19 11:59 02/10/19 11:39 Labetalol HCl (Normodyne) 20 mg Q4H PRN IV SBP>150 02/08/19 13:22 03/10/19 13:21 02/10/19 14:15 Lorazepam (Ativan 2mg/ml 1ml) 1 mg Q4H PRN IV For Anxiety 02/08/19 12:00 02/15/19 11:59 02/08/19 21:21 Pantoprazole 80 mg/Sodium Chloride 250 ml @ 25 mls/hr Q10H IV 02/08/19 12:00 03/10/19 11:59 02/10/19 13:24 Piperacillin Sod/ Tazobactam Sod 3.375 gm/Sodium Chloride 110 ml @ 27.5 mls/hr EVERY 8 HOURS IVPB 02/08/19 12:00 02/13/19 11:59 02/10/19 13:25 Potassium Phosphate 30 mm/ Sodium Chloride 285 ml @ 47.5 mls/hr ONCE ONCE IV 02/10/19 13:00 02/10/19 18:59 02/10/19 13:24 Thiamine HCl 100 mg/Dextrose 56 ml @ 112 mls/hr Q24H IVPB 02/08/19 13:00 03/10/19 12:59 02/10/19 15:11 Last 24 Hour Vital Signs Date Time Temp Pulse Resp B/P (MAP) Pulse Ox O2 Delivery O2 Flow Rate FiO2 02/10/19 14:15 83 171/66 02/10/19 11:34 174/84 02/10/19 11:00 85 27 174/84 (114) 100 02/10/19 10:50 Venturi Mask 6.0 28 02/10/19 10:00 88 21 168/72 (104) 100 02/10/19 09:30 74 20 30 30 02/10/19 09:00 86 21 157/83 (107) 100 02/10/19 08:40 100 02/10/19 08:40 74 17 30 30 02/10/19 08:00 99.1 92 23 161/64 (96) 100 02/10/19 08:00 Mechanical Ventilator 02/10/19 08:00 84 02/10/19 07:23 86 23 30 02/10/19 07:00 84 18 163/76 (105) 100 02/10/19 06:06 85 18 172/68 (102) 100 02/10/19 05:55 162/67 02/10/19 05:05 78 19 30 02/10/19 05:00 85 18 162/67 (98) 100 02/10/19 04:00 97.8 74 21 142/68 (92) 02/10/19 04:00 Mechanical Ventilator 02/10/19 04:00 85 02/10/19 03:00 76 19 160/88 (112) 100 02/10/19 03:00 75 18 30 02/10/19 02:36 89 181/59 02/10/19 02:00 84 18 181/59 (99) 100 02/10/19 01:17 90 19 30 02/10/19 01:00 83 18 152/60 (90) 100 02/10/19 00:17 176/82 02/10/19 00:00 98.2 89 19 176/82 (113) 100 02/10/19 00:00 87 02/10/19 00:00 Mechanical Ventilator 02/09/19 23:14 77 18 30 02/09/19 23:00 80 18 177/59 (98) 100 02/09/19 22:00 76 18 157/83 (107) 100 02/09/19 21:26 84 19 30 02/09/19 21:00 83 20 145/62 (89) 100 02/09/19 20:07 96 164/71 02/09/19 20:00 99.9 101 21 164/71 (102) 99 02/09/19 20:00 96 02/09/19 20:00 Mechanical Ventilator 02/09/19 19:30 101 20 30 02/09/19 19:00 103 20 171/71 (104) 100 02/09/19 18:40 154/68 02/09/19 18:00 111 24 154/68 (96) 100 02/09/19 17:11 108 23 30 02/09/19 17:00 98 22 160/70 (100) 100 02/09/19 16:00 98.0 104 22 176/68 (104) 100 02/09/19 16:00 102 02/09/19 16:00 Mechanical Ventilator 02/09/19 15:00 93 22 159/67 (97) 100 02/09/19 14:40 107 21 30 02/09/19 14:00 113 24 130/82 (98) 100 02/09/19 13:12 101 23 30 02/09/19 13:05 150/72 02/09/19 13:00 102 17 164/80 (108) 100 02/09/19 12:00 Mechanical Ventilator 02/09/19 12:00 100.0 88 18 151/64 (93) 100 02/09/19 12:00 102 02/09/19 11:05 90 18 30 02/09/19 11:00 91 18 140/61 (87) 100 02/09/19 10:00 76 21 146/58 (87) 100 02/09/19 09:00 93 20 155/69 (97) 100 02/09/19 09:00 88 18 30 02/09/19 08:00 97.8 100 20 154/72 (99) 100 02/09/19 08:00 Mechanical Ventilator 02/09/19 08:00 79 02/09/19 07:30 85 18 139/64 (89) 100 02/09/19 07:17 79 18 30 02/09/19 07:00 83 18 148/65 (92) 100 02/09/19 06:30 79 19 156/60 (92) 100 02/09/19 06:23 159/58 02/09/19 06:00 89 20 159/58 (91) 100 02/09/19 05:10 80 18 30 02/09/19 05:00 90 20 165/64 (97) 100 02/09/19 04:30 76 18 148/64 (92) 100 02/09/19 04:00 Mechanical Ventilator 02/09/19 04:00 98.4 72 18 147/56 (86) 100 02/09/19 03:30 76 18 125/59 (81) 100 02/09/19 03:15 76 163/61 02/09/19 03:14 86 21 129/60 (83) 95 02/09/19 03:00 75 19 163/61 (95) 100 02/09/19 02:56 79 24 30 02/09/19 02:30 88 19 177/75 (109) 100 02/09/19 02:25 84 20 166/60 (95) 100 02/09/19 02:00 81 24 163/58 (93) 100 02/09/19 01:00 86 22 149/68 (95) 100 02/09/19 00:55 83 22 30 02/09/19 00:30 80 21 146/65 (92) 100 02/09/19 00:00 98.6 79 18 159/60 (93) 100 02/09/19 00:00 Mechanical Ventilator 02/09/19 00:00 81 02/08/19 23:49 162/76 02/08/19 23:30 90 21 162/76 (104) 100 02/08/19 23:15 79 19 30 02/08/19 23:00 84 19 161/65 (97) 100 02/08/19 22:30 82 18 149/68 (95) 100 02/08/19 22:00 82 20 145/68 (93) 100 02/08/19 21:30 89 28 145/64 (91) 100 02/08/19 21:21 89 170/70 02/08/19 21:00 89 20 170/70 (103) 100 02/08/19 20:59 84 20 30 02/08/19 20:21 92 22 161/74 (103) 99 02/08/19 20:00 99.9 95 23 162/98 (119) 100 02/08/19 20:00 Mechanical Ventilator 02/08/19 19:29 96 02/08/19 19:00 90 22 30 02/08/19 19:00 103 21 163/75 (104) 99 02/08/19 18:00 89 24 160/71 (100) 100 02/08/19 17:45 149/75 02/08/19 17:30 30 02/08/19 17:10 100 28 40 02/08/19 17:00 87 27 149/75 (99) 100 02/08/19 16:03 90 27 40 02/08/19 16:00 Mechanical Ventilator 02/08/19 16:00 98.2 92 29 146/86 (106) 100 02/08/19 16:00 93 Intake and Output 02/09/19 02/10/19 18:59 06:59 Intake Total 362 ml 890.0 ml Output Total 445 ml 1155 ml Balance -83 ml -265.0 ml Intake Oral 0 ml IV Total 362 ml 890.0 ml Output Urine Total 445 ml 1155 ml # Bowel Movements 5 Labs Test 02/07/19 23:17 02/07/19 23:43 02/08/19 00:03 02/08/19 00:43 White Blood Count 34.1 K/UL (4.8-10.8) Red Blood Count 3.87 M/UL (4.70-6.10) Hemoglobin 12.1 G/DL (14.2-18.0) Hematocrit 37.5 % (42.0-52.0) Mean Corpuscular Volume 97 FL (80-99) Mean Corpuscular Hemoglobin 31.2 PG (27.0-31.0) Mean Corpuscular Hemoglobin Concent 32.2 G/DL (32.0-36.0) Red Cell Distribution Width 13.8 % (11.6-14.8) Platelet Count 307 K/UL (150-450) Mean Platelet Volume 5.2 FL (6.5-10.1) Neutrophils (%) (Auto) % (45.0-75.0) Lymphocytes (%) (Auto) % (20.0-45.0) Monocytes (%) (Auto) % (1.0-10.0) Eosinophils (%) (Auto) % (0.0-3.0) Basophils (%) (Auto) % (0.0-2.0) Differential Total Cells Counted 100 Neutrophils % (Manual) 52 % (45-75) Lymphocytes % (Manual) 41 % (20-45) Monocytes % (Manual) 3 % (1-10) Eosinophils % (Manual) 0 % (0-3) Basophils % (Manual) 0 % (0-2) Band Neutrophils 4 % (0-8) Platelet Estimate Adequate Platelet Morphology Normal Prothrombin Time 14.0 SEC (9.30-11.50) Prothromb Time International Ratio 1.3 (0.9-1.1) Activated Partial Thromboplast Time 32 SEC (23-33) Sodium Level 138 MMOL/L (136-145) Potassium Level 4.8 MMOL/L (3.5-5.1) Chloride Level 103 MMOL/L (98-107) Carbon Dioxide Level 10 MMOL/L (21-32) Anion Gap 25 mmol/L (5-15) Blood Urea Nitrogen 33 mg/dL (7-18) Creatinine 1.9 MG/DL (0.55-1.30) Estimat Glomerular Filtration Rate mL/min (>60) Glucose Level 405 MG/DL (74-106) Lactic Acid Level 21.40 mmol/L (0.4-2.0) 14.20 mmol/L (0.66-2.22) Calcium Level 10.0 MG/DL (8.5-10.1) Total Bilirubin 0.3 MG/DL (0.2-1.0) Aspartate Amino Transf (AST/SGOT) 22 U/L (15-37) Alanine Aminotransferase (ALT/SGPT) 22 U/L (12-78) Alkaline Phosphatase 58 U/L (46-116) Total Creatine Kinase 91 U/L (26-308) Creatine Kinase MB 0.8 NG/ML (0.0-3.6) Creatine Kinase MB Relative Index 0.8 Troponin I 0.000 ng/mL (0.000-0.056) Total Protein 6.2 G/DL (6.4-8.2) Albumin 2.8 G/DL (3.4-5.0) Globulin 3.4 g/dL Albumin/Globulin Ratio 0.8 (1.0-2.7) Urine Color Yellow Urine Appearance Clear Urine pH 5 (4.5-8.0) Urine Specific [place] 1.025 (1.005-1.035) Urine Protein 3+ (NEGATIVE) Urine Glucose (UA) 1+ (NEGATIVE) Urine Ketones 1+ (NEGATIVE) Urine Blood 3+ (NEGATIVE) Urine Nitrite Negative (NEGATIVE) Urine Bilirubin Negative (NEGATIVE) Urine Urobilinogen 1 MG/DL (0.0-1.0) Urine Leukocyte Esterase 1+ (NEGATIVE) Urine RBC 2-4 /HPF (0 - 0) Urine WBC 2-4 /HPF (0 - 0) Urine Squamous Epithelial Cells Few /LPF (NONE/OCC) Urine Bacteria Few /HPF (NONE) Arterial Blood pH 7.167 (7.350-7.450) Arterial Blood Partial Pressure CO2 22.1 mmHg (35.0-45.0) Arterial Blood Partial Pressure O2 148.5 mmHg (75.0-100.0) Arterial Blood HCO3 7.8 mmol/L (22.0-26.0) Arterial Blood Oxygen Saturation 97.4 % (95-100) Arterial Blood Base Excess -19.0 (-2-2) Uvaldo Test Positive Test 02/08/19 00:49 02/08/19 01:10 02/08/19 03:00 02/08/19 05:31 Lab Scanned Report Blood Bank/Transfusion Sodium Level 137 MMOL/L (136-145) 140 MMOL/L (136-145) Potassium Level 4.8 MMOL/L (3.5-5.1) 4.7 MMOL/L (3.5-5.1) Chloride Level 105 MMOL/L (98-107) 113 MMOL/L (98-107) Carbon Dioxide Level 14 MMOL/L (21-32) 16 MMOL/L (21-32) Anion Gap 18 mmol/L (5-15) 11 mmol/L (5-15) Blood Urea Nitrogen 35 mg/dL (7-18) 30 mg/dL (7-18) Creatinine 1.7 MG/DL (0.55-1.30) 1.1 MG/DL (0.55-1.30) Estimat Glomerular Filtration Rate mL/min (>60) mL/min (>60) Glucose Level 329 MG/DL (74-106) 228 MG/DL (74-106) Calcium Level 8.4 MG/DL (8.5-10.1) 6.2 MG/DL (8.5-10.1) Thyroid Stimulating Hormone (TSH) 1.847 uiU/mL (0.358-3.740) Free Thyroxine 1.17 NG/DL (0.76-1.46) White Blood Count 21.5 K/UL (4.8-10.8) Red Blood Count 2.56 M/UL (4.70-6.10) Hemoglobin 8.1 G/DL (14.2-18.0) Hematocrit 23.6 % (42.0-52.0) Mean Corpuscular Volume 92 FL (80-99) Mean Corpuscular Hemoglobin 31.6 PG (27.0-31.0) Mean Corpuscular Hemoglobin Concent 34.3 G/DL (32.0-36.0) Red Cell Distribution Width 13.1 % (11.6-14.8) Platelet Count 166 K/UL (150-450) Mean Platelet Volume 5.4 FL (6.5-10.1) Neutrophils (%) (Auto) % (45.0-75.0) Lymphocytes (%) (Auto) % (20.0-45.0) Monocytes (%) (Auto) % (1.0-10.0) Eosinophils (%) (Auto) % (0.0-3.0) Basophils (%) (Auto) % (0.0-2.0) Arterial Blood pH 7.330 (7.350-7.450) Arterial Blood Partial Pressure CO2 31.3 mmHg (35.0-45.0) Arterial Blood Partial Pressure O2 141.7 mmHg (75.0-100.0) Arterial Blood HCO3 16.1 mmol/L (22.0-26.0) Arterial Blood Oxygen Saturation 98.1 % (95-100) Arterial Blood Base Excess -8.7 (-2-2) Uvaldo Test Positive Test 02/08/19 08:40 02/08/19 11:30 02/08/19 14:05 02/08/19 14:15 White Blood Count 20.5 K/UL (4.8-10.8) 19.3 K/UL (4.8-10.8) Red Blood Count 5.27 M/UL (4.70-6.10) 4.83 M/UL (4.70-6.10) Hemoglobin 16.0 G/DL (14.2-18.0) 14.9 G/DL (14.2-18.0) Hematocrit 47.3 % (42.0-52.0) 43.5 % (42.0-52.0) Mean Corpuscular Volume 90 FL (80-99) 90 FL (80-99) Mean Corpuscular Hemoglobin 30.5 PG (27.0-31.0) 30.9 PG (27.0-31.0) Mean Corpuscular Hemoglobin Concent 33.9 G/DL (32.0-36.0) 34.3 G/DL (32.0-36.0) Red Cell Distribution Width 12.6 % (11.6-14.8) 13.0 % (11.6-14.8) Platelet Count 166 K/UL (150-450) 178 K/UL (150-450) Mean Platelet Volume 5.6 FL (6.5-10.1) 5.5 FL (6.5-10.1) Neutrophils (%) (Auto) % (45.0-75.0) % (45.0-75.0) Lymphocytes (%) (Auto) % (20.0-45.0) % (20.0-45.0) Monocytes (%) (Auto) % (1.0-10.0) % (1.0-10.0) Eosinophils (%) (Auto) % (0.0-3.0) % (0.0-3.0) Basophils (%) (Auto) % (0.0-2.0) % (0.0-2.0) Differential Total Cells Counted 100 100 Neutrophils % (Manual) 89 % (45-75) 88 % (45-75) Lymphocytes % (Manual) 8 % (20-45) 6 % (20-45) Monocytes % (Manual) 3 % (1-10) 4 % (1-10) Eosinophils % (Manual) 0 % (0-3) 0 % (0-3) Basophils % (Manual) 0 % (0-2) 0 % (0-2) Band Neutrophils 0 % (0-8) 2 % (0-8) Platelet Estimate Adequate Adequate Platelet Morphology Normal Normal Red Blood Cell Morphology Normal Normal Sodium Level 138 MMOL/L (136-145) Potassium Level 4.7 MMOL/L (3.5-5.1) Chloride Level 110 MMOL/L (98-107) Carbon Dioxide Level 20 MMOL/L (21-32) Anion Gap 8 mmol/L (5-15) Blood Urea Nitrogen 23 mg/dL (7-18) Creatinine 0.9 MG/DL (0.55-1.30) Estimat Glomerular Filtration Rate mL/min (>60) Glucose Level 132 MG/DL (74-106) Hemoglobin A1c 6.7 % (4.3-6.0) Lactic Acid Level 3.00 mmol/L (0.4-2.0) 1.80 mmol/L (0.66-2.22) Uric Acid 5.3 MG/DL (2.6-7.2) Calcium Level 6.8 MG/DL (8.5-10.1) Phosphorus Level 3.5 MG/DL (2.5-4.9) Magnesium Level 2.4 MG/DL (1.8-2.4) Iron Level 79 ug/dL (50-175) Total Iron Binding Capacity 194 ug/dL (250-450) Percent Iron Saturation 41 % (15-50) Unsaturated Iron Binding 115 ug/dL (112-346) Ferritin 423 NG/ML (8-388) Total Bilirubin 1.6 MG/DL (0.2-1.0) Direct Bilirubin 0.3 MG/DL (0.0-0.3) Aspartate Amino Transf (AST/SGOT) 376 U/L (15-37) Alanine Aminotransferase (ALT/SGPT) 95 U/L (12-78) Alkaline Phosphatase 43 U/L (46-116) Total Protein 5.9 G/DL (6.4-8.2) Albumin 2.8 G/DL (3.4-5.0) Globulin 3.1 g/dL Albumin/Globulin Ratio 0.9 (1.0-2.7) Triglycerides Level 65 MG/DL (30-150) Cholesterol Level 86 MG/DL (< 200) LDL Cholesterol 40 mg/dL (<100) HDL Cholesterol 35 MG/DL (40-60) Cholesterol/HDL Ratio 2.5 (3.3-4.4) Lipase 67 U/L (73-393) Vitamin B12 Level 671 PG/ML (193-986) Folate 11.9 NG/ML (8.6-58.9) Acetone Level Negative (NEGATIVE) Arterial Blood pH 7.291 (7.350-7.450) Arterial Blood Partial Pressure CO2 38.3 mmHg (35.0-45.0) Arterial Blood Partial Pressure O2 323.1 mmHg (75.0-100.0) Arterial Blood HCO3 18.0 mmol/L (22.0-26.0) Arterial Blood Oxygen Saturation 99.4 % (95-100) Arterial Blood Base Excess -7.9 (-2-2) Uvaldo Test Positive Test 02/08/19 17:12 02/08/19 20:15 02/09/19 04:13 02/09/19 08:00 Arterial Blood pH 7.412 (7.350-7.450) Arterial Blood Partial Pressure CO2 28.6 mmHg (35.0-45.0) Arterial Blood Partial Pressure O2 157.3 mmHg (75.0-100.0) Arterial Blood HCO3 17.8 mmol/L (22.0-26.0) Arterial Blood Oxygen Saturation 98.8 % (95-100) Arterial Blood Base Excess -5.3 (-2-2) Uvaldo Test Positive White Blood Count 18.7 K/UL (4.8-10.8) 15.6 K/UL (4.8-10.8) Red Blood Count 4.40 M/UL (4.70-6.10) 4.26 M/UL (4.70-6.10) Hemoglobin 13.7 G/DL (14.2-18.0) 13.3 G/DL (14.2-18.0) Hematocrit 37.8 % (42.0-52.0) 38.6 % (42.0-52.0) Mean Corpuscular Volume 86 FL (80-99) 91 FL (80-99) Mean Corpuscular Hemoglobin 31.2 PG (27.0-31.0) 31.2 PG (27.0-31.0) Mean Corpuscular Hemoglobin Concent 36.3 G/DL (32.0-36.0) 34.5 G/DL (32.0-36.0) Red Cell Distribution Width 12.3 % (11.6-14.8) 13.5 % (11.6-14.8) Platelet Count 171 K/UL (150-450) 166 K/UL (150-450) Mean Platelet Volume 5.9 FL (6.5-10.1) 5.4 FL (6.5-10.1) Neutrophils (%) (Auto) 83.9 % (45.0-75.0) 79.5 % (45.0-75.0) Lymphocytes (%) (Auto) 10.4 % (20.0-45.0) 13.5 % (20.0-45.0) Monocytes (%) (Auto) 5.2 % (1.0-10.0) 6.4 % (1.0-10.0) Eosinophils (%) (Auto) 0.0 % (0.0-3.0) 0.2 % (0.0-3.0) Basophils (%) (Auto) 0.5 % (0.0-2.0) 0.4 % (0.0-2.0) Erythrocyte Sedimentation Rate 17 MM/HR (0-20) Prothrombin Time 13.1 SEC (9.30-11.50) Prothromb Time International Ratio 1.2 (0.9-1.1) Activated Partial Thromboplast Time 31 SEC (23-33) Sodium Level 140 MMOL/L (136-145) Potassium Level 3.9 MMOL/L (3.5-5.1) Chloride Level 110 MMOL/L (98-107) Carbon Dioxide Level 23 MMOL/L (21-32) Anion Gap 7 mmol/L (5-15) Blood Urea Nitrogen 11 mg/dL (7-18) Creatinine 0.7 MG/DL (0.55-1.30) Estimat Glomerular Filtration Rate mL/min (>60) Glucose Level 144 MG/DL (74-106) Lactic Acid Level 2.80 mmol/L (0.4-2.0) Uric Acid 2.8 MG/DL (2.6-7.2) Calcium Level 7.9 MG/DL (8.5-10.1) Phosphorus Level 2.2 MG/DL (2.5-4.9) Magnesium Level 2.0 MG/DL (1.8-2.4) Total Bilirubin 2.5 MG/DL (0.2-1.0) Direct Bilirubin 1.0 MG/DL (0.0-0.3) Aspartate Amino Transf (AST/SGOT) 996 U/L (15-37) Alanine Aminotransferase (ALT/SGPT) 194 U/L (12-78) Alkaline Phosphatase 43 U/L (46-116) Troponin I 0.331 ng/mL (0.000-0.056) C-Reactive Protein, Quantitative 29.3 mg/dL (0.00-0.90) Total Protein 4.8 G/DL (6.4-8.2) Albumin 2.3 G/DL (3.4-5.0) Globulin 2.5 g/dL Albumin/Globulin Ratio 0.9 (1.0-2.7) Amylase Level 116 U/L (25-115) Lipase 33 U/L (73-393) Test 02/09/19 12:45 02/10/19 03:20 02/10/19 10:05 Lactic Acid Level 1.00 mmol/L (0.66-2.22) White Blood Count 14.4 K/UL (4.8-10.8) Red Blood Count 3.75 M/UL (4.70-6.10) Hemoglobin 11.7 G/DL (14.2-18.0) Hematocrit 33.8 % (42.0-52.0) Mean Corpuscular Volume 90 FL (80-99) Mean Corpuscular Hemoglobin 31.2 PG (27.0-31.0) Mean Corpuscular Hemoglobin Concent 34.6 G/DL (32.0-36.0) Red Cell Distribution Width 13.1 % (11.6-14.8) Platelet Count 191 K/UL (150-450) Mean Platelet Volume 5.6 FL (6.5-10.1) Neutrophils (%) (Auto) 79.6 % (45.0-75.0) Lymphocytes (%) (Auto) 13.0 % (20.0-45.0) Monocytes (%) (Auto) 6.2 % (1.0-10.0) Eosinophils (%) (Auto) 0.7 % (0.0-3.0) Basophils (%) (Auto) 0.6 % (0.0-2.0) Sodium Level 139 MMOL/L (136-145) Potassium Level 2.8 MMOL/L (3.5-5.1) Chloride Level 108 MMOL/L (98-107) Carbon Dioxide Level 25 MMOL/L (21-32) Anion Gap 6 mmol/L (5-15) Blood Urea Nitrogen 5 mg/dL (7-18) Creatinine 0.6 MG/DL (0.55-1.30) Estimat Glomerular Filtration Rate mL/min (>60) Glucose Level 104 MG/DL (74-106) Uric Acid 1.6 MG/DL (2.6-7.2) Calcium Level 7.8 MG/DL (8.5-10.1) Phosphorus Level 2.1 MG/DL (2.5-4.9) Magnesium Level 1.9 MG/DL (1.8-2.4) Total Bilirubin 1.2 MG/DL (0.2-1.0) Direct Bilirubin 0.3 MG/DL (0.0-0.3) Gamma Glutamyl Transpeptidase 29 U/L (5-85) Aspartate Amino Transf (AST/SGOT) 965 U/L (15-37) Alanine Aminotransferase (ALT/SGPT) 232 U/L (12-78) Alkaline Phosphatase 48 U/L (46-116) C-Reactive Protein, Quantitative 16.8 mg/dL (0.00-0.90) Pro-B-Type Natriuretic Peptide 862 pg/mL (0-125) Total Protein 5.0 G/DL (6.4-8.2) Albumin 2.0 G/DL (3.4-5.0) Globulin 3.0 g/dL Albumin/Globulin Ratio 0.7 (1.0-2.7) Arterial Blood pH 7.451 (7.350-7.450) Arterial Blood Partial Pressure CO2 34.6 mmHg (35.0-45.0) Arterial Blood Partial Pressure O2 112.2 mmHg (75.0-100.0) Arterial Blood HCO3 23.6 mmol/L (22.0-26.0) Arterial Blood Oxygen Saturation 97.7 % (95-100) Arterial Blood Base Excess 0 (-2-2) Uvaldo Test Positive Height (Feet): 5 Height (Inches): 5.00 Weight (Pounds): 120 Objective General Appearance: no acute distress HEENT: mucous membranes moist Respiratory/Chest: lungs clear, other - Oxygen by mask Cardiovascular: normal rate Abdomen: soft, non tender Extremities: no edema Neurologic/Psychiatric: alert, responsive Hal Smith MD Feb 10, 2019 15:35
--- NOTE | 2019-02-10 15:42 | NUR ---
CASE MANAGEMENT: REVIEW 02/10/2019 SI:DKA. GIB. T 98.9 HR 87 RR 23 B/P 160/73 SATS 100% ON VENTURI MASK FIO2 30 WBC 14.4 K 2.8 CL 108 BUN 5 CA 7.8 PHOS 2.1 TBILI 1.2 AST 965 ALT 232 ABGs PH 7.451 PCO2 34.6 PO2 112.2 IS:PROTONIX IV @ 25mL/HR IVF @ 40 mL/HR VASOTEC IV Q6H ZOSYN IV Q8H SODIUM PHOS IV X1 THIAMINE IV Q24H FENTANYL IV Q24H ICU PLAN OF CARE: WEAN POSSIBLE IV HYDRATE TRANSFER TO MELLO
--- NOTE | 2019-02-10 16:00 | NUR ---
NURSE NOTES: Patient awake, A/o x3. pt on NC 2L, sating 100%.no secretions. no respiratory distress noted. abdomen soft, non tender. pt afebrile. condom cath draining ashlee urine. On Protonix drip at 25mls/hr, D5 1/2 NS at 40ml/hr. Will monitor patient for bleeding. Bed alarm on. Bed locked and in low position. skin -see assessment. Will continue plan of care.
--- NOTE | 2019-02-10 18:00 | NUR ---
NURSE NOTES: accparadisek 121, 2 units given
--- NOTE | 2019-02-10 19:21 | Surgery Progress Note ---
Surgery Progress Note Subjective Additional Comments no active bleeding more awake and alert h/h noted Objective Last 24 Hour Vital Signs Date Time Temp Pulse Resp B/P (MAP) Pulse Ox O2 Delivery O2 Flow Rate FiO2 02/10/19 18:00 92 26 153/55 (87) 97 02/10/19 17:33 143/93 02/10/19 17:09 100 Cool Aerosol 6.0 28 02/10/19 17:00 98 20 143/93 (110) 100 02/10/19 16:54 92 24 176/69 (104) 100 02/10/19 16:00 98.6 102 27 162/70 (100) 98 02/10/19 16:00 86 02/10/19 16:00 Nasal Cannula 2.0 Nasal Cannula 2.0 02/10/19 15:00 91 25 180/62 (101) 100 02/10/19 14:15 83 171/66 02/10/19 14:00 84 28 170/65 (100) 100 02/10/19 13:00 86 27 173/68 (103) 100 02/10/19 12:00 98.9 87 23 160/73 (102) 100 02/10/19 12:00 Simple Mask 6.0 Simple Mask 6.0 02/10/19 12:00 90 02/10/19 11:34 174/84 02/10/19 11:00 85 27 174/84 (114) 100 02/10/19 10:50 Venturi Mask 6.0 28 02/10/19 10:00 88 21 168/72 (104) 100 02/10/19 09:30 74 20 30 30 02/10/19 09:00 86 21 157/83 (107) 100 02/10/19 08:40 100 02/10/19 08:40 74 17 30 30 02/10/19 08:00 99.1 92 23 161/64 (96) 100 02/10/19 08:00 Mechanical Ventilator 02/10/19 08:00 84 02/10/19 07:23 86 23 30 02/10/19 07:00 84 18 163/76 (105) 100 02/10/19 06:06 85 18 172/68 (102) 100 02/10/19 05:55 162/67 02/10/19 05:05 78 19 30 02/10/19 05:00 85 18 162/67 (98) 100 02/10/19 04:00 97.8 74 21 142/68 (92) 02/10/19 04:00 Mechanical Ventilator 02/10/19 04:00 85 02/10/19 03:00 76 19 160/88 (112) 100 02/10/19 03:00 75 18 30 02/10/19 02:36 89 181/59 02/10/19 02:00 84 18 181/59 (99) 100 02/10/19 01:17 90 19 30 02/10/19 01:00 83 18 152/60 (90) 100 02/10/19 00:17 176/82 02/10/19 00:00 98.2 89 19 176/82 (113) 100 02/10/19 00:00 87 02/10/19 00:00 Mechanical Ventilator 02/09/19 23:14 77 18 30 02/09/19 23:00 80 18 177/59 (98) 100 02/09/19 22:00 76 18 157/83 (107) 100 02/09/19 21:26 84 19 30 02/09/19 21:00 83 20 145/62 (89) 100 02/09/19 20:07 96 164/71 02/09/19 20:00 99.9 101 21 164/71 (102) 99 02/09/19 20:00 96 02/09/19 20:00 Mechanical Ventilator 02/09/19 19:30 101 20 30 I&O Intake and Output 02/09/19 02/10/19 19:00 07:00 Intake Total 402 ml 890.0 ml Output Total 450 ml 1180 ml Balance -48 ml -290.0 ml Intake Oral 0 ml IV Total 402 ml 890.0 ml Output Urine Total 450 ml 1180 ml # Bowel Movements 5 Cardiovascular: RSR Respiratory: clear Abdomen: soft, distended, non-tender, decreased bowel sounds Extremities: no cyanosis Laboratory Tests Test 02/10/19 03:20 02/10/19 10:05 White Blood Count 14.4 K/UL (4.8-10.8) H Red Blood Count 3.75 M/UL (4.70-6.10) L Hemoglobin 11.7 G/DL (14.2-18.0) L Hematocrit 33.8 % (42.0-52.0) L Mean Corpuscular Volume 90 FL (80-99) Mean Corpuscular Hemoglobin 31.2 PG (27.0-31.0) H Mean Corpuscular Hemoglobin Concent 34.6 G/DL (32.0-36.0) Red Cell Distribution Width 13.1 % (11.6-14.8) Platelet Count 191 K/UL (150-450) Mean Platelet Volume 5.6 FL (6.5-10.1) L Neutrophils (%) (Auto) 79.6 % (45.0-75.0) H Lymphocytes (%) (Auto) 13.0 % (20.0-45.0) L Monocytes (%) (Auto) 6.2 % (1.0-10.0) Eosinophils (%) (Auto) 0.7 % (0.0-3.0) Basophils (%) (Auto) 0.6 % (0.0-2.0) Sodium Level 139 MMOL/L (136-145) Potassium Level 2.8 MMOL/L (3.5-5.1) L Chloride Level 108 MMOL/L (98-107) H Carbon Dioxide Level 25 MMOL/L (21-32) Anion Gap 6 mmol/L (5-15) Blood Urea Nitrogen 5 mg/dL (7-18) L Creatinine 0.6 MG/DL (0.55-1.30) Estimat Glomerular Filtration Rate mL/min (>60) Glucose Level 104 MG/DL (74-106) Uric Acid 1.6 MG/DL (2.6-7.2) L Calcium Level 7.8 MG/DL (8.5-10.1) L Phosphorus Level 2.1 MG/DL (2.5-4.9) L Magnesium Level 1.9 MG/DL (1.8-2.4) Total Bilirubin 1.2 MG/DL (0.2-1.0) H Direct Bilirubin 0.3 MG/DL (0.0-0.3) Gamma Glutamyl Transpeptidase 29 U/L (5-85) Aspartate Amino Transf (AST/SGOT) 965 U/L (15-37) H Alanine Aminotransferase (ALT/SGPT) 232 U/L (12-78) H Alkaline Phosphatase 48 U/L (46-116) C-Reactive Protein, Quantitative 16.8 mg/dL (0.00-0.90) H Pro-B-Type Natriuretic Peptide 862 pg/mL (0-125) H Total Protein 5.0 G/DL (6.4-8.2) L Albumin 2.0 G/DL (3.4-5.0) L Globulin 3.0 g/dL Albumin/Globulin Ratio 0.7 (1.0-2.7) L Arterial Blood pH 7.451 (7.350-7.450) Arterial Blood Partial Pressure CO2 34.6 mmHg (35.0-45.0) L Arterial Blood Partial Pressure O2 112.2 mmHg (75.0-100.0) H Arterial Blood HCO3 23.6 mmol/L (22.0-26.0) Arterial Blood Oxygen Saturation 97.7 % (95-100) Arterial Blood Base Excess 0 (-2-2) Uvaldo Test Positive Plan Problems: (1) GIB (gastrointestinal bleeding) Assessment & Plan: 69-year-old male with acute gastrointestinal hemorrhage secondary to large duodenal ulcer. Patient had endoscopy with hemostasis just now identified a large ulcer with potential to rebleed. Need to control patient's hypertension and allow for even permissive hypotension if necessary Every 6 hours H&H trend transfuse as needed NG tube Will follow and be available in case patient rebleeds at which time he will require an exploration thank you for allowing me to participate in patient's care will follow with recommendations Adelso Baumann Feb 10, 2019 19:21
--- NOTE | 2019-02-10 19:28 | NUR ---
HAND-OFF: Report given to tiara salazar. pt in no acute distress.
--- NOTE | 2019-02-10 19:30 | NUR ---
NURSE NOTES: Received pt in no apparent distress. AAOx4; follow commands, verbally appropriate.Calm, cooperative, passive. S/P extubation pt now on 2l via NC saturating 100%. Currently denies pain, denies SOB. Afebrile NSR on the scope. PIV sites on Right and left hands intact. Protonix gtt continues at 8mg/h; main IVF of D51/2NS running at 40ml/h. No melena, no obvious signs of bleeding. Remains NPO but pt doesn't complain of hunger. FC intact, urine dark ashlee, sl turbid. Right middle fingernail still loose. Both feet dry and scaly. Applied A&D ointment. Plan of care explained. Will continue to monitor
[2019-02-10] MEDS: D5 1/2NS 1,000 ML IV SCH (20:29)
--- NOTE | 2019-02-10 21:43 | Pulmonolgy Critical Care Note ---
Critical Care - Asmt/Plan Assessment/Plan: Pulmonary CCM Progress Note HPI Patient is a 69-year-old male admitted with generalized weakness, altered mental status. He was at a bus stop when a friend called 911. Noted to have hemodynamically significant Gastrointestinal Bleed in the ED, Evidence of Sigmoid/Rectal thickening on CT abdomen, Urinary Tract Infection. Had significantly elevated Lactic Acid and Glucose Level (minimal Ketones in urine) , abnormal renal function. No history of trauma noted. No complaint of pain or shortness of breath. Tolerating weaning now extubated Allergies: No Known Allergies Past Medical History: Diabetes All Other Systems: limited - Secondary to patient's condition Physical Exam Vital Signs Noted General Appearance: sedated on ventilator, chronically ill appearing Head: normocephalic, atraumatic Eyes: bilateral eye PERRL, bilateral eye EOMI ENT: normal pharynx, moist mucus membranes Neck: no LN Respiratory: chest non-tender, lungs clear, normal breath sounds Cardiovascular: regular rate, rhythm, no murmur, HS1, HS2 normal Gastrointestinal: normal bowel sounds, non tender, no mass, no organomegaly, no bruit, non-distended Musculoskeletal: back normal, normal range of motion Neurologic: sedated, grossly normal, no focal signs, no seizures Impression: Gastrointestinal bleed Anemia Possible Mesenteric Ischemia given degree of acidosis, possible Colitis given CT findings Sepsis Urinary Tract Infection Hypovolemia Acute kidney failure Lactic acidosis Diabetes ARF (acute renal failure) Plan [facility]mist CPT, HHN IVF PRN Transfuse PRN ISS IV Antibiotics Monitor labs PPX EKG: Rhythm: NSR, no PVC's Chest X-Ray: no consolidation, no effusion, no pneumothorax, no acute cardiopulmonary disease, No acute disease CT Abdomen: Patient was noted to have concentric thickening Sigmoid colon and rectum Critical Care - Objective Last 24 Hour Vital Signs Date Time Temp Pulse Resp B/P (MAP) Pulse Ox O2 Delivery O2 Flow Rate FiO2 02/10/19 21:00 92 24 180/100 (126) 100 02/10/19 20:00 97.8 92 25 157/65 (95) 100 02/10/19 20:00 93 02/10/19 20:00 Nasal Cannula 2.0 Nasal Cannula 2.0 02/10/19 19:40 100 Cool Aerosol 6.0 28 02/10/19 19:00 90 28 161/61 (94) 96 02/10/19 18:00 92 26 153/55 (87) 97 02/10/19 17:33 143/93 02/10/19 17:09 100 Cool Aerosol 6.0 28 02/10/19 17:00 98 20 143/93 (110) 100 02/10/19 16:54 92 24 176/69 (104) 100 02/10/19 16:00 98.6 102 27 162/70 (100) 98 02/10/19 16:00 86 02/10/19 16:00 Nasal Cannula 2.0 Nasal Cannula 2.0 02/10/19 15:00 91 25 180/62 (101) 100 02/10/19 14:15 83 171/66 02/10/19 14:00 84 28 170/65 (100) 100 02/10/19 13:00 86 27 173/68 (103) 100 02/10/19 12:00 98.9 87 23 160/73 (102) 100 02/10/19 12:00 Simple Mask 6.0 Simple Mask 6.0 02/10/19 12:00 90 02/10/19 11:34 174/84 02/10/19 11:00 85 27 174/84 (114) 100 02/10/19 10:50 Venturi Mask 6.0 28 02/10/19 10:00 88 21 168/72 (104) 100 02/10/19 09:30 74 20 30 30 02/10/19 09:00 86 21 157/83 (107) 100 02/10/19 08:40 100 02/10/19 08:40 74 17 30 30 02/10/19 08:00 99.1 92 23 161/64 (96) 100 02/10/19 08:00 Mechanical Ventilator 02/10/19 08:00 84 02/10/19 07:23 86 23 30 02/10/19 07:00 84 18 163/76 (105) 100 02/10/19 06:06 85 18 172/68 (102) 100 02/10/19 05:55 162/67 02/10/19 05:05 78 19 30 02/10/19 05:00 85 18 162/67 (98) 100 02/10/19 04:00 97.8 74 21 142/68 (92) 02/10/19 04:00 Mechanical Ventilator 02/10/19 04:00 85 02/10/19 03:00 76 19 160/88 (112) 100 02/10/19 03:00 75 18 30 02/10/19 02:36 89 181/59 02/10/19 02:00 84 18 181/59 (99) 100 02/10/19 01:17 90 19 30 02/10/19 01:00 83 18 152/60 (90) 100 02/10/19 00:17 176/82 02/10/19 00:00 98.2 89 19 176/82 (113) 100 02/10/19 00:00 87 02/10/19 00:00 Mechanical Ventilator 02/09/19 23:14 77 18 30 02/09/19 23:00 80 18 177/59 (98) 100 02/09/19 22:00 76 18 157/83 (107) 100 Micro: Microbiology Date/Time Source Procedure Growth Status 02/07/19 23:17 Blood Blood Culture - Preliminary NO GROWTH AFTER 48 HOURS Resulted 02/07/19 23:02 Blood Blood Culture - Preliminary NO GROWTH AFTER 48 HOURS Resulted 02/08/19 13:30 Sputum Gram Stain - Final Resulted 02/08/19 13:30 Sputum Sputum Culture - Preliminary NORMAL UPPER RESPIRATORY SOLO AT 24 ... Resulted 02/08/19 00:56 Nasal Nares MRSA Culture - Final NO METHICILLIN RESISTANT STAPH AUREUS... Complete 02/08/19 00:56 Rectum VRE Culture - Final NO VANCOMYCIN RESISTANT ENTEROCOCCUS ... Complete 02/08/19 00:56 Rectum - Final NO CARBAPENEM-RESISTANT ENTEROBACTERI... Complete Accucheck: 121 Critical Care - Subjective ROS Limited/Unobtainable: No FI02: 28 Vent Support Breath Rate: 18 Vent Support Mode: CPAP Vent Tidal Volume: 500 Sputum Amount: Small PEEP: 5.0 PIP: 13 I&O: Intake and Output 02/09/19 02/10/19 19:00 07:00 Intake Total 402 ml 890.0 ml Output Total 450 ml 1180 ml Balance -48 ml -290.0 ml Intake Oral 0 ml IV Total 402 ml 890.0 ml Output Urine Total 450 ml 1180 ml # Bowel Movements 5 ET-Tube: 7.5 ET Position: 22 Prince Gallagher MD Feb 10, 2019 21:43
--- NOTE | 2019-02-10 21:56 | General Progress Note ---
Assessment/Plan Problem List: (1) ARF (acute renal failure) ICD Codes: N17.9 - Acute kidney failure, unspecified SNOMED: 44536071 Qualifiers: Qualified Codes: N17.9 - Acute kidney failure, unspecified (2) Sepsis ICD Codes: A41.9 - Sepsis, unspecified organism SNOMED: 25674613, 13364426 Qualifiers: Qualified Codes: A41.9 - Sepsis, unspecified organism; R65.20 - Severe sepsis without septic shock; N17.9 - Acute kidney failure, unspecified (3) Lactic acidosis ICD Codes: E87.2 - Acidosis SNOMED: 61338862, 63845254 (4) Anemia ICD Codes: D64.9 - Anemia, unspecified SNOMED: 701616593 (5) DKA (diabetic ketoacidoses) ICD Codes: E11.10 - Type 2 diabetes mellitus with ketoacidosis without coma SNOMED: 349850316, 48310083 Qualifiers: Qualified Codes: E13.10 - Other specified diabetes mellitus with ketoacidosis without coma (6) GIB (gastrointestinal bleeding) ICD Codes: K92.2 - Gastrointestinal hemorrhage, unspecified SNOMED: 23378272 (7) Acute respiratory failure ICD Codes: J96.00 - Acute respiratory failure, unspecified whether with hypoxia or hypercapnia SNOMED: 06326779 (8) Dehydration ICD Codes: E86.0 - Dehydration SNOMED: 36101888, 54628240 Status: progressing, unchanged Assessment/Plan: respiratory failure dka resolved lyte abnormality gi bleeding check h/h Subjective ROS Limited/Unobtainable: Yes Allergies: Coded Allergies: No Known Allergies (Unverified , 02/07/19) Objective Last 24 Hour Vital Signs Date Time Temp Pulse Resp B/P (MAP) Pulse Ox O2 Delivery O2 Flow Rate FiO2 02/10/19 21:00 92 24 180/100 (126) 100 02/10/19 20:00 97.8 92 25 157/65 (95) 100 02/10/19 20:00 93 02/10/19 20:00 Nasal Cannula 2.0 Nasal Cannula 2.0 02/10/19 19:40 100 Cool Aerosol 6.0 28 02/10/19 19:00 90 28 161/61 (94) 96 02/10/19 18:00 92 26 153/55 (87) 97 02/10/19 17:33 143/93 02/10/19 17:09 100 Cool Aerosol 6.0 28 02/10/19 17:00 98 20 143/93 (110) 100 02/10/19 16:54 92 24 176/69 (104) 100 02/10/19 16:00 98.6 102 27 162/70 (100) 98 02/10/19 16:00 86 02/10/19 16:00 Nasal Cannula 2.0 Nasal Cannula 2.0 02/10/19 15:00 91 25 180/62 (101) 100 02/10/19 14:15 83 171/66 02/10/19 14:00 84 28 170/65 (100) 100 02/10/19 13:00 86 27 173/68 (103) 100 02/10/19 12:00 98.9 87 23 160/73 (102) 100 02/10/19 12:00 Simple Mask 6.0 Simple Mask 6.0 02/10/19 12:00 90 02/10/19 11:34 174/84 02/10/19 11:00 85 27 174/84 (114) 100 02/10/19 10:50 Venturi Mask 6.0 28 02/10/19 10:00 88 21 168/72 (104) 100 02/10/19 09:30 74 20 30 30 02/10/19 09:00 86 21 157/83 (107) 100 02/10/19 08:40 100 02/10/19 08:40 74 17 30 30 02/10/19 08:00 99.1 92 23 161/64 (96) 100 02/10/19 08:00 Mechanical Ventilator 02/10/19 08:00 84 02/10/19 07:23 86 23 30 02/10/19 07:00 84 18 163/76 (105) 100 02/10/19 06:06 85 18 172/68 (102) 100 02/10/19 05:55 162/67 02/10/19 05:05 78 19 30 02/10/19 05:00 85 18 162/67 (98) 100 02/10/19 04:00 97.8 74 21 142/68 (92) 02/10/19 04:00 Mechanical Ventilator 02/10/19 04:00 85 02/10/19 03:00 76 19 160/88 (112) 100 02/10/19 03:00 75 18 30 02/10/19 02:36 89 181/59 02/10/19 02:00 84 18 181/59 (99) 100 02/10/19 01:17 90 19 30 02/10/19 01:00 83 18 152/60 (90) 100 02/10/19 00:17 176/82 02/10/19 00:00 98.2 89 19 176/82 (113) 100 02/10/19 00:00 87 02/10/19 00:00 Mechanical Ventilator 02/09/19 23:14 77 18 30 02/09/19 23:00 80 18 177/59 (98) 100 02/09/19 22:00 76 18 157/83 (107) 100 Intake and Output 02/09/19 02/10/19 19:00 07:00 Intake Total 402 ml 890.0 ml Output Total 450 ml 1180 ml Balance -48 ml -290.0 ml Intake Oral 0 ml IV Total 402 ml 890.0 ml Output Urine Total 450 ml 1180 ml # Bowel Movements 5 Laboratory Tests 02/10/19 03:20: White Blood Count 14.4H, Red Blood Count 3.75L, Hemoglobin 11.7L, Hematocrit 33.8L, Mean Corpuscular Volume 90, Mean Corpuscular Hemoglobin 31.2H, Mean Corpuscular Hemoglobin Concent 34.6, Red Cell Distribution Width 13.1, Platelet Count 191, Mean Platelet Volume 5.6L, Neutrophils (%) (Auto) 79.6H, Lymphocytes (%) (Auto) 13.0L, Monocytes (%) (Auto) 6.2, Eosinophils (%) (Auto) 0.7, Basophils (%) (Auto) 0.6, Sodium Level 139, Potassium Level 2.8L, Chloride Level 108H, Carbon Dioxide Level 25, Anion Gap 6, Blood Urea Nitrogen 5L, Creatinine 0.6, Estimat Glomerular Filtration Rate , Glucose Level 104, Uric Acid 1.6L, Calcium Level 7.8L, Phosphorus Level 2.1L, Magnesium Level 1.9, Total Bilirubin 1.2H, Direct Bilirubin 0.3, Gamma Glutamyl Transpeptidase 29, Aspartate Amino Transf (AST/SGOT) 965H, Alanine Aminotransferase (ALT/SGPT) 232H , Alkaline Phosphatase 48, C-Reactive Protein, Quantitative 16.8H, Pro-B-Type Natriuretic Peptide 862H, Total Protein 5.0L, Albumin 2.0L, Globulin 3.0, Albumin/Globulin Ratio 0.7L 02/10/19 10:05: Arterial Blood pH 7.451H, Arterial Blood Partial Pressure CO2 34.6L, Arterial Blood Partial Pressure O2 112.2H, Arterial Blood HCO3 23.6, Arterial Blood Oxygen Saturation 97.7, Arterial Blood Base Excess 0, Uvaldo Test Positive Height (Feet): 5 Height (Inches): 5.00 Weight (Pounds): 120 Neck: supple Cardiovascular: normal rate Respiratory/Chest: lungs clear Abdomen: soft Harvey Gee MD Feb 10, 2019 21:56
--- NOTE | 2019-02-10 22:00 | NUR ---
NURSE NOTES: Remains awake, alert, watches TV. Passive, calm, denies pain. Instructed to do IS and pt able to blow up to 1500ml with good effort. PIV sites intact,
--- NOTE | 2019-02-10 22:44 | NUR ---
NURSE NOTES: BP remains elevated to SBP>160. Labetalol 20 mg IVP given slowly.Will continue to monitor
[2019-02-11] VITALS (15 sets, daily range): BP systolic 132–180; BP diastolic 61–115
--- NOTE | 2019-02-11 | NUR ---
NURSE NOTES: Condom cath leaked and gown and underpad soaked. HS care done, replaced condom cath and rendered dry. Afebrile, VSS, denies pain
--- NOTE | 2019-02-11 02:00 | NUR ---
NURSE NOTES: Sleeping on rounds. No distress, VSS
[2019-02-11] MEDS: Pantoprazole 80 MG in NS 250 ML IV SCH ×3 (02:52→20:11)
--- NOTE | 2019-02-11 04:00 | NUR ---
NURSE NOTES: Awake and AM care done. Oral care done as well. CC intact. PIV patent. No BM, no melena, no hematemesis. Denies abd pain, denies SOB. Calm, cooperative; follow commands. afebrile.
[2019-02-11] MEDS: NovoLOG Insulin Flexpen SUBQ SCH ×4 (05:53→23:03)
[2019-02-11] MEDS: Piperacillin/Tazobactam 3.375 GM in NS 110 ML IVPB SCH ×3 (05:53→21:05)
[2019-02-11] MEDS: Enalaprilat 2.5mg/2ml Inj IV SCH ×2 (05:53→11:25)
--- NOTE | 2019-02-11 06:45 | NUR ---
NURSE NOTES: Dr Gallagher here, saw pt; Ok to transfer pt to SDU
--- NOTE | 2019-02-11 07:04 | NUR ---
HAND-OFF: Report given to Leonie Johnson RN.
[2019-02-11 07:05] LABS: ANION GAP 8 mmol/L (5-15); BLOOD UREA NITROGEN 5 mg/dL (7-18); CALCIUM 7.8 MG/DL (8.5-10.1); CARBON DIOXIDE 26 MMOL/L (21-32); CHLORIDE 109 MMOL/L (98-107); CREATININE 0.5 MG/DL (0.55-1.30); POTASSIUM 2.9 MMOL/L (3.5-5.1); SODIUM 143 MMOL/L (136-145)
[2019-02-11 07:07] LABS: BASOPHILS % (AUTO) 0.5 % (0.0-2.0); EOSINOPHILS % (AUTO) 0.7 % (0.0-3.0); HEMATOCRIT 33.5 % (42.0-52.0); HEMOGLOBIN 11.4 G/DL (14.2-18.0); LYMPHOCYTES % (AUTO) 12.2 % (20.0-45.0); MEAN CORPUSCULAR VOLUME 91 FL (80-99); MONOCYTES % (AUTO) 5.7 % (1.0-10.0); NEUTROPHILS % (AUTO) 80.9 % (45.0-75.0); PLATELET COUNT 200 K/UL (150-450); RED BLOOD COUNT 3.68 M/UL (4.70-6.10); RED CELL DISTRIBUTION WIDTH 12.8 % (11.6-14.8); WHITE BLOOD COUNT 13.2 K/UL (4.8-10.8)
--- NOTE | 2019-02-11 07:30 | NUR ---
NURSE NOTES: Received report from Vick ALEGRIA. Patient awake, A/o x3. pt on manager monitoring. VS: BP 164/67, HR 104, RR20, 02sat 100%. Bilateral diminished, no secretions or cough. on 2L NC. no respiratory distress noted. abdomen distended, soft, non tender. No Bm this shift. pt remains NPO. pt afebrile at 98 oral. bilateral radial and pedal pulses weak. pt c/o leg discomfort, will remove SCD for 1 hour. condom cath draining ashlee urine. patient IV LT and RT hand 22G, patent and intact. On Protonix drip at 25mls/hr, D5 1/2 NS at 40ml/hr. standard precautions in place. fall precautions in place. Bed alarm on, locked and in low position. skin -see assessment. Will continue plan of care.
--- NOTE | 2019-02-11 10:26 | NUR ---
NURSE NOTES: WITH ASSISTANCE OF SECOND RN, PT CLEANED, REPOSITIONED AND PHOTO TAKEN OF SACRAL AREA. IMPROVED. COVERED WITH OPTIFOAM. PT ON P200 MATTRESS. NO DISTRESS NOTED. WILL CONTINUE TOP MONITOR PT.
--- NOTE | 2019-02-11 12:00 | NUR ---
NURSE NOTES: Patient awake, A/o x3. was informed of transfer to [facility]. pt on pvc monitor. VS: BP 169/63, HR 100, RR24, 02sat 100%. Bilateral diminished, no cough. on 2L NC. no respiratory distress noted. abdomen distended, soft, non tender. No Bm this shift. pt remains NPO. pt afebrile. bilateral radial and pedal pulses weak. SCD's. condom cath draining ashlee urine. IV's, patent and intact. On Protonix drip at 25mls/hr, D5 1/2 NS at 40ml/hr. standard precautions in place. fall precautions in place. Bed alarm on, locked and in low position. skin -see assessment. Will continue plan of care.
--- NOTE | 2019-02-11 12:25 | NUR ---
TRANSFER TO FLOOR: Patient transferred to SDU 239-2, per . Report given to . Belongings and medications given to Loida Ly Family and or S/O informed of transfer. N/A. endorsed obtaining diet order, as pt NPO.
--- NOTE | 2019-02-11 12:38 | Cardiac Electrophysiology PN ---
Assessment/Plan Assessment/Plan 1. Tachycardia due to diabetic ketoacidosis and acute GI bleed. There is no evidence of atrial fibrillation. No evidence of atrial fibrillation or atrial flutter or any SVT. EF 60%. In NSR now 2. S/P Respiratory failure, Extubated today 3. Acute GI bleed, status post endoscopy by Dr. Conn that showed duodenal ulcer. Biopsy was performed. Patient received 4 units of blood transfusion. The patient had large duodenal bulb ulcer with hemorrhage .Stable now. No indication for surgery at this time per Dr. Baumann 4. Diabetic ketoacidosis, on insulin drip. 5. Accelerated hypertension. On IV hydralazine. DW RN Subjective Subjective In ICU. Extubated yesterday in NAD. Being transferred out to SDU Objective Last 24 Hour Vital Signs Date Time Temp Pulse Resp B/P (MAP) Pulse Ox O2 Delivery O2 Flow Rate FiO2 02/11/19 10:00 88 25 132/66 (88) 100 02/11/19 09:00 94 27 180/115 (136) 99 02/11/19 08:00 103 25 167/72 (103) 99 02/11/19 08:00 Nasal Cannula 2.0 Nasal Cannula 2.0 02/11/19 08:00 91 02/11/19 07:29 100 Nasal Cannula 2.0 28 02/11/19 07:00 104 20 164/67 (99) 100 02/11/19 06:00 90 26 166/69 (101) 100 02/11/19 05:53 169/62 02/11/19 05:00 89 25 169/62 (97) 100 02/11/19 04:00 Nasal Cannula 2.0 Nasal Cannula 2.0 02/11/19 04:00 98 02/11/19 04:00 98.4 98 25 151/64 (93) 100 02/11/19 03:00 98 24 160/91 (114) 99 02/11/19 02:00 103 24 159/81 (107) 99 02/11/19 01:00 86 26 163/62 (95) 100 02/11/19 00:00 Nasal Cannula 2.0 Nasal Cannula 2.0 02/11/19 00:00 87 02/11/19 00:00 98.5 81 30 156/77 (103) 100 02/10/19 23:40 143/57 02/10/19 23:00 92 28 143/57 (85) 97 02/10/19 22:44 85 163/81 02/10/19 22:00 92 25 163/81 (108) 100 02/10/19 21:00 92 24 180/100 (126) 100 02/10/19 20:00 97.8 92 25 157/65 (95) 100 02/10/19 20:00 93 02/10/19 20:00 Nasal Cannula 2.0 Nasal Cannula 2.0 02/10/19 19:40 100 Nasal Cannula 2.0 28 02/10/19 19:00 90 28 161/61 (94) 96 02/10/19 18:00 92 26 153/55 (87) 97 02/10/19 17:33 143/93 02/10/19 17:09 100 Cool Aerosol 6.0 28 02/10/19 17:00 98 20 143/93 (110) 100 02/10/19 16:54 92 24 176/69 (104) 100 02/10/19 16:00 98.6 102 27 162/70 (100) 98 02/10/19 16:00 86 02/10/19 16:00 Nasal Cannula 2.0 Nasal Cannula 2.0 02/10/19 15:00 91 25 180/62 (101) 100 02/10/19 14:15 83 171/66 02/10/19 14:00 84 28 170/65 (100) 100 02/10/19 13:00 86 27 173/68 (103) 100 Intake and Output 02/10/19 02/11/19 18:59 06:59 Intake Total 1004.5 ml 890.0 ml Output Total 955 ml 1055 ml Balance 49.5 ml -165.0 ml Intake Oral 0 ml 0 ml IV Total 1004.5 ml 890.0 ml Output Urine Total 955 ml 1055 ml # Bowel Movements 3 Laboratory Tests Test 02/11/19 06:10 White Blood Count 13.2 K/UL (4.8-10.8) H Red Blood Count 3.68 M/UL (4.70-6.10) L Hemoglobin 11.4 G/DL (14.2-18.0) L Hematocrit 33.5 % (42.0-52.0) L Mean Corpuscular Volume 91 FL (80-99) Mean Corpuscular Hemoglobin 31.1 PG (27.0-31.0) H Mean Corpuscular Hemoglobin Concent 34.2 G/DL (32.0-36.0) Red Cell Distribution Width 12.8 % (11.6-14.8) Platelet Count 200 K/UL (150-450) Mean Platelet Volume 5.0 FL (6.5-10.1) L Neutrophils (%) (Auto) 80.9 % (45.0-75.0) H Lymphocytes (%) (Auto) 12.2 % (20.0-45.0) L Monocytes (%) (Auto) 5.7 % (1.0-10.0) Eosinophils (%) (Auto) 0.7 % (0.0-3.0) Basophils (%) (Auto) 0.5 % (0.0-2.0) Sodium Level 143 MMOL/L (136-145) Potassium Level 2.9 MMOL/L (3.5-5.1) L Chloride Level 109 MMOL/L (98-107) H Carbon Dioxide Level 26 MMOL/L (21-32) Anion Gap 8 mmol/L (5-15) Blood Urea Nitrogen 5 mg/dL (7-18) L Creatinine 0.5 MG/DL (0.55-1.30) L Estimat Glomerular Filtration Rate mL/min (>60) Glucose Level 109 MG/DL (74-106) H Calcium Level 7.8 MG/DL (8.5-10.1) L Phosphorus Level 3.0 MG/DL (2.5-4.9) Microbiology Date/Time Source Procedure Growth Status 02/08/19 13:30 Sputum Gram Stain - Final Complete 02/08/19 13:30 Sputum Sputum Culture - Final NORMAL UPPER RESPIRATORY SOLO PRESENT Complete Objective HEAD AND NECK: No JVD. LUNGS: Decreased breath sounds. CARDIOVASCULAR: Tachycardic. S1 and S2 with no gallop. ABDOMEN: Soft. EXTREMITIES: No pitting edema. Very poor feet hygiene. Matthew Kent MD Feb 11, 2019 12:38
--- NOTE | 2019-02-11 12:42 | Surgery Progress Note ---
Surgery Progress Note Subjective Additional Comments extubated talking and comfortable no complaints h/h noted. no active bleeding Objective Last 24 Hour Vital Signs Date Time Temp Pulse Resp B/P (MAP) Pulse Ox O2 Delivery O2 Flow Rate FiO2 02/11/19 10:00 88 25 132/66 (88) 100 02/11/19 09:00 94 27 180/115 (136) 99 02/11/19 08:00 103 25 167/72 (103) 99 02/11/19 08:00 Nasal Cannula 2.0 Nasal Cannula 2.0 02/11/19 08:00 91 02/11/19 07:29 100 Nasal Cannula 2.0 28 02/11/19 07:00 104 20 164/67 (99) 100 02/11/19 06:00 90 26 166/69 (101) 100 02/11/19 05:53 169/62 02/11/19 05:00 89 25 169/62 (97) 100 02/11/19 04:00 Nasal Cannula 2.0 Nasal Cannula 2.0 02/11/19 04:00 98 02/11/19 04:00 98.4 98 25 151/64 (93) 100 02/11/19 03:00 98 24 160/91 (114) 99 02/11/19 02:00 103 24 159/81 (107) 99 02/11/19 01:00 86 26 163/62 (95) 100 02/11/19 00:00 Nasal Cannula 2.0 Nasal Cannula 2.0 02/11/19 00:00 87 02/11/19 00:00 98.5 81 30 156/77 (103) 100 02/10/19 23:40 143/57 02/10/19 23:00 92 28 143/57 (85) 97 02/10/19 22:44 85 163/81 02/10/19 22:00 92 25 163/81 (108) 100 02/10/19 21:00 92 24 180/100 (126) 100 02/10/19 20:00 97.8 92 25 157/65 (95) 100 02/10/19 20:00 93 02/10/19 20:00 Nasal Cannula 2.0 Nasal Cannula 2.0 02/10/19 19:40 100 Nasal Cannula 2.0 28 02/10/19 19:00 90 28 161/61 (94) 96 02/10/19 18:00 92 26 153/55 (87) 97 02/10/19 17:33 143/93 02/10/19 17:09 100 Cool Aerosol 6.0 28 02/10/19 17:00 98 20 143/93 (110) 100 02/10/19 16:54 92 24 176/69 (104) 100 02/10/19 16:00 98.6 102 27 162/70 (100) 98 02/10/19 16:00 86 02/10/19 16:00 Nasal Cannula 2.0 Nasal Cannula 2.0 02/10/19 15:00 91 25 180/62 (101) 100 02/10/19 14:15 83 171/66 02/10/19 14:00 84 28 170/65 (100) 100 02/10/19 13:00 86 27 173/68 (103) 100 I&O Intake and Output 02/10/19 02/11/19 18:59 06:59 Intake Total 1004.5 ml 890.0 ml Output Total 955 ml 1055 ml Balance 49.5 ml -165.0 ml Intake Oral 0 ml 0 ml IV Total 1004.5 ml 890.0 ml Output Urine Total 955 ml 1055 ml # Bowel Movements 3 Cardiovascular: RSR Respiratory: clear Abdomen: soft, distended, non-tender, decreased bowel sounds Extremities: no cyanosis, other Laboratory Tests Test 02/11/19 06:10 White Blood Count 13.2 K/UL (4.8-10.8) H Red Blood Count 3.68 M/UL (4.70-6.10) L Hemoglobin 11.4 G/DL (14.2-18.0) L Hematocrit 33.5 % (42.0-52.0) L Mean Corpuscular Volume 91 FL (80-99) Mean Corpuscular Hemoglobin 31.1 PG (27.0-31.0) H Mean Corpuscular Hemoglobin Concent 34.2 G/DL (32.0-36.0) Red Cell Distribution Width 12.8 % (11.6-14.8) Platelet Count 200 K/UL (150-450) Mean Platelet Volume 5.0 FL (6.5-10.1) L Neutrophils (%) (Auto) 80.9 % (45.0-75.0) H Lymphocytes (%) (Auto) 12.2 % (20.0-45.0) L Monocytes (%) (Auto) 5.7 % (1.0-10.0) Eosinophils (%) (Auto) 0.7 % (0.0-3.0) Basophils (%) (Auto) 0.5 % (0.0-2.0) Sodium Level 143 MMOL/L (136-145) Potassium Level 2.9 MMOL/L (3.5-5.1) L Chloride Level 109 MMOL/L (98-107) H Carbon Dioxide Level 26 MMOL/L (21-32) Anion Gap 8 mmol/L (5-15) Blood Urea Nitrogen 5 mg/dL (7-18) L Creatinine 0.5 MG/DL (0.55-1.30) L Estimat Glomerular Filtration Rate mL/min (>60) Glucose Level 109 MG/DL (74-106) H Calcium Level 7.8 MG/DL (8.5-10.1) L Phosphorus Level 3.0 MG/DL (2.5-4.9) Plan Problems: (1) GIB (gastrointestinal bleeding) Assessment & Plan: 69-year-old male with acute gastrointestinal hemorrhage secondary to large duodenal ulcer. Patient had endoscopy with hemostasis just now identified a large ulcer with potential to rebleed. Need to control patient's hypertension and allow for even permissive hypotension if necessary Every 6 hours H&H trend transfuse as needed NG tube Will follow and be available in case patient rebleeds at which time he will require an exploration thank you for allowing me to participate in patient's care will follow with recommendations Adelso Baumann Feb 11, 2019 12:42
[2019-02-11] MEDS ORDERED: D5 1/2NS 1,000 ML IV SCH (12:45)
[2019-02-11] MEDS ORDERED: LORazepam Inj 2mg/ml 1ml IV PRN (13:00)
--- NOTE | 2019-02-11 13:10 | NUR ---
NURSE NOTES: Report received from Renae RN.Pt resting quietly in bed awake,alert in no acute resp distress denies any c/o pain or discomfort,SR on the monitor,kept NPO, denies any bloody stools,voids per urinal,skin warm and dry,IV sites x2 intact,with Protonix drip to RH at 25ml/hr and LH with IVF D5 1/2 NS at 40 ml/hrSR up x2 call xiong within reach at bedside,bed lock in lowest position,will continue to monitor pt.
[2019-02-11] MEDS ORDERED: Labetalol 5mg/ml 20ml vial IV PRN (13:30)
--- NOTE | 2019-02-11 13:50 | General Progress Note ---
Assessment/Plan Status: progressing, unchanged Assessment/Plan: Assessment - UGIB - duodenal ulcer - anemia Recommendations - check swallow - follow labs - PPI - elevate HOB Subjective Allergies: Coded Allergies: No Known Allergies (Unverified , 02/07/19) Subjective seen in ICU d/w RN stalinda extubated yesterday NPO Objective Last 24 Hour Vital Signs Date Time Temp Pulse Resp B/P (MAP) Pulse Ox O2 Delivery O2 Flow Rate FiO2 02/11/19 10:00 88 25 132/66 (88) 100 02/11/19 09:00 94 27 180/115 (136) 99 02/11/19 08:00 103 25 167/72 (103) 99 02/11/19 08:00 Nasal Cannula 2.0 Nasal Cannula 2.0 02/11/19 08:00 91 02/11/19 07:29 100 Nasal Cannula 2.0 28 02/11/19 07:00 104 20 164/67 (99) 100 02/11/19 06:00 90 26 166/69 (101) 100 02/11/19 05:53 169/62 02/11/19 05:00 89 25 169/62 (97) 100 02/11/19 04:00 Nasal Cannula 2.0 Nasal Cannula 2.0 02/11/19 04:00 98 02/11/19 04:00 98.4 98 25 151/64 (93) 100 02/11/19 03:00 98 24 160/91 (114) 99 02/11/19 02:00 103 24 159/81 (107) 99 02/11/19 01:00 86 26 163/62 (95) 100 02/11/19 00:00 Nasal Cannula 2.0 Nasal Cannula 2.0 02/11/19 00:00 87 02/11/19 00:00 98.5 81 30 156/77 (103) 100 02/10/19 23:40 143/57 02/10/19 23:00 92 28 143/57 (85) 97 02/10/19 22:44 85 163/81 02/10/19 22:00 92 25 163/81 (108) 100 02/10/19 21:00 92 24 180/100 (126) 100 02/10/19 20:00 97.8 92 25 157/65 (95) 100 02/10/19 20:00 93 02/10/19 20:00 Nasal Cannula 2.0 Nasal Cannula 2.0 02/10/19 19:40 100 Nasal Cannula 2.0 28 02/10/19 19:00 90 28 161/61 (94) 96 02/10/19 18:00 92 26 153/55 (87) 97 02/10/19 17:33 143/93 02/10/19 17:09 100 Cool Aerosol 6.0 28 02/10/19 17:00 98 20 143/93 (110) 100 02/10/19 16:54 92 24 176/69 (104) 100 02/10/19 16:00 98.6 102 27 162/70 (100) 98 02/10/19 16:00 86 02/10/19 16:00 Nasal Cannula 2.0 Nasal Cannula 2.0 02/10/19 15:00 91 25 180/62 (101) 100 02/10/19 14:15 83 171/66 02/10/19 14:00 84 28 170/65 (100) 100 Intake and Output 02/10/19 02/11/19 18:59 06:59 Intake Total 1004.5 ml 890.0 ml Output Total 955 ml 1055 ml Balance 49.5 ml -165.0 ml Intake Oral 0 ml 0 ml IV Total 1004.5 ml 890.0 ml Output Urine Total 955 ml 1055 ml # Bowel Movements 3 Laboratory Tests 02/11/19 06:10: White Blood Count 13.2H, Red Blood Count 3.68L, Hemoglobin 11.4L, Hematocrit 33.5L, Mean Corpuscular Volume 91, Mean Corpuscular Hemoglobin 31.1H, Mean Corpuscular Hemoglobin Concent 34.2, Red Cell Distribution Width 12.8, Platelet Count 200, Mean Platelet Volume 5.0L, Neutrophils (%) (Auto) 80.9H, Lymphocytes (%) (Auto) 12.2L, Monocytes (%) (Auto) 5.7, Eosinophils (%) (Auto) 0.7, Basophils (%) (Auto) 0.5, Sodium Level 143, Potassium Level 2.9L, Chloride Level 109H, Carbon Dioxide Level 26, Anion Gap 8, Blood Urea Nitrogen 5L, Creatinine 0.5L, Estimat Glomerular Filtration Rate , Glucose Level 109H, Calcium Level 7.8L, Phosphorus Level 3.0 Height (Feet): 5 Height (Inches): 5.00 Weight (Pounds): 124 Objective Debilitated man NCAT supple CTA RR abd soft , flat no edema Franklyn Milan MD Feb 11, 2019 13:50
[2019-02-11] MEDS: Thiamine HCl 100 MG in D5W 55 ML IVPB SCH (14:01)
--- NOTE | 2019-02-11 14:31 | Pulmonolgy Critical Care Note ---
Critical Care - Asmt/Plan Assessment/Plan: Pulmonary CCM Progress Note HPI Patient is a 69-year-old male admitted with generalized weakness, altered mental status. [place] bus stop when a friend called 911. Noted to have hemodynamically significant Gastrointestinal Bleed in the ED, Evidence of Sigmoid/Rectal thickening on CT abdomen, Urinary Tract Infection. Had significantly elevated Lactic Acid and Glucose Level (minimal Ketones in urine) , abnormal renal function. No history of trauma noted. No complaint of pain or shortness of breath. Tolerating weaning now extubated Improved condition, being TF out of ICU Allergies: No Known Allergies Past Medical History: Diabetes All Other Systems: limited - Secondary to patient's condition Physical Exam Vital Signs Noted General Appearance: sedated on ventilator, chronically ill appearing Head: normocephalic, atraumatic Eyes: bilateral eye PERRL, bilateral eye EOMI ENT: normal pharynx, moist mucus membranes Neck: no LN Respiratory: chest non-tender, lungs clear, normal breath sounds Cardiovascular: regular rate, rhythm, no murmur, HS1, HS2 normal Gastrointestinal: normal bowel sounds, non tender, no mass, no organomegaly, no bruit, non-distended Musculoskeletal: back normal, normal range of motion Neurologic: sedated, grossly normal, no focal signs, no seizures Impression: Gastrointestinal bleed Anemia Possible Mesenteric Ischemia given degree of acidosis, possible Colitis given CT findings Sepsis Urinary Tract Infection Hypovolemia Acute kidney failure Lactic acidosis Diabetes ARF (acute renal failure) Plan Coolmist CPT, HHN IVF PRN Transfuse PRN ISS IV Antibiotics Monitor labs PPX EKG: Rhythm: NSR, no PVC's Chest X-Ray: no consolidation, no effusion, no pneumothorax, no acute cardiopulmonary disease, No acute disease CT Abdomen: Patient was noted to have concentric thickening Sigmoid colon and rectum Critical Care - Objective Last 24 Hour Vital Signs Date Time Temp Pulse Resp B/P (MAP) Pulse Ox O2 Delivery O2 Flow Rate FiO2 02/11/19 12:00 Nasal Cannula 2.0 Nasal Cannula 2.0 02/11/19 12:00 98.8 83 24 169/63 (98) 100 02/11/19 11:00 80 26 169/61 (97) 100 02/11/19 10:00 88 25 132/66 (88) 100 02/11/19 09:00 94 27 180/115 (136) 99 02/11/19 08:00 103 25 167/72 (103) 99 02/11/19 08:00 Nasal Cannula 2.0 Nasal Cannula 2.0 02/11/19 08:00 91 02/11/19 07:29 100 Nasal Cannula 2.0 28 02/11/19 07:00 104 20 164/67 (99) 100 02/11/19 06:00 90 26 166/69 (101) 100 02/11/19 05:53 169/62 02/11/19 05:00 89 25 169/62 (97) 100 02/11/19 04:00 Nasal Cannula 2.0 Nasal Cannula 2.0 02/11/19 04:00 98 02/11/19 04:00 98.4 98 25 151/64 (93) 100 02/11/19 03:00 98 24 160/91 (114) 99 02/11/19 02:00 103 24 159/81 (107) 99 02/11/19 01:00 86 26 163/62 (95) 100 02/11/19 00:00 Nasal Cannula 2.0 Nasal Cannula 2.0 02/11/19 00:00 87 02/11/19 00:00 98.5 81 30 156/77 (103) 100 02/10/19 23:40 143/57 02/10/19 23:00 92 28 143/57 (85) 97 02/10/19 22:44 85 163/81 02/10/19 22:00 92 25 163/81 (108) 100 02/10/19 21:00 92 24 180/100 (126) 100 02/10/19 20:00 97.8 92 25 157/65 (95) 100 02/10/19 20:00 93 02/10/19 20:00 Nasal Cannula 2.0 Nasal Cannula 2.0 02/10/19 19:40 100 Nasal Cannula 2.0 28 02/10/19 19:00 90 28 161/61 (94) 96 02/10/19 18:00 92 26 153/55 (87) 97 02/10/19 17:33 143/93 02/10/19 17:09 100 Cool Aerosol 6.0 28 02/10/19 17:00 98 20 143/93 (110) 100 02/10/19 16:54 92 24 176/69 (104) 100 02/10/19 16:00 98.6 102 27 162/70 (100) 98 02/10/19 16:00 86 02/10/19 16:00 Nasal Cannula 2.0 Nasal Cannula 2.0 02/10/19 15:00 91 25 180/62 (101) 100 Accucheck: 124 Critical Care - Subjective ROS Limited/Unobtainable: No FI02: 28 Vent Support Breath Rate: 18 Vent Support Mode: CPAP Vent Tidal Volume: 500 Sputum Amount: Small PEEP: 5.0 PIP: 13 I&O: Intake and Output 02/10/19 02/11/19 18:59 06:59 Intake Total 1004.5 ml 890.0 ml Output Total 955 ml 1055 ml Balance 49.5 ml -165.0 ml Intake Oral 0 ml 0 ml IV Total 1004.5 ml 890.0 ml Output Urine Total 955 ml 1055 ml # Bowel Movements 3 ET-Tube: 7.5 ET Position: 22 Prince Gallagher MD Feb 11, 2019 14:31
--- NOTE | 2019-02-11 15:16 | General Progress Note ---
Assessment/Plan Problem List: (1) ARF (acute renal failure) ICD Codes: N17.9 - Acute kidney failure, unspecified SNOMED: 60223007 Qualifiers: Qualified Codes: N17.9 - Acute kidney failure, unspecified (2) Sepsis ICD Codes: A41.9 - Sepsis, unspecified organism SNOMED: 70971850, 05266969 Qualifiers: Qualified Codes: A41.9 - Sepsis, unspecified organism; R65.20 - Severe sepsis without septic shock; N17.9 - Acute kidney failure, unspecified (3) Lactic acidosis ICD Codes: E87.2 - Acidosis SNOMED: 91658143, 82811922 (4) Anemia ICD Codes: D64.9 - Anemia, unspecified SNOMED: 888460020 (5) DKA (diabetic ketoacidoses) ICD Codes: E11.10 - Type 2 diabetes mellitus with ketoacidosis without coma SNOMED: 734894844, 45072713 Qualifiers: Qualified Codes: E13.10 - Other specified diabetes mellitus with ketoacidosis without coma (6) GIB (gastrointestinal bleeding) ICD Codes: K92.2 - Gastrointestinal hemorrhage, unspecified SNOMED: 06735837 (7) Acute respiratory failure ICD Codes: J96.00 - Acute respiratory failure, unspecified whether with hypoxia or hypercapnia SNOMED: 74068191 (8) Dehydration ICD Codes: E86.0 - Dehydration SNOMED: 47736608, 00135603 Status: progressing, unchanged Assessment/Plan: respiratory failure dka resolved lyte abnormality improving clinically improved more alert sugar is improving gi bleeding check h/h Subjective ROS Limited/Unobtainable: Yes Allergies: Coded Allergies: No Known Allergies (Unverified , 02/07/19) Objective Last 24 Hour Vital Signs Date Time Temp Pulse Resp B/P (MAP) Pulse Ox O2 Delivery O2 Flow Rate FiO2 02/11/19 12:00 Nasal Cannula 2.0 Nasal Cannula 2.0 02/11/19 12:00 98.8 83 24 169/63 (98) 100 02/11/19 12:00 101 02/11/19 11:00 80 26 169/61 (97) 100 02/11/19 10:00 88 25 132/66 (88) 100 02/11/19 09:00 94 27 180/115 (136) 99 02/11/19 08:00 98.6 103 25 167/72 (103) 99 02/11/19 08:00 Nasal Cannula 2.0 Nasal Cannula 2.0 02/11/19 08:00 91 02/11/19 07:29 100 Nasal Cannula 2.0 28 02/11/19 07:00 104 20 164/67 (99) 100 02/11/19 06:00 90 26 166/69 (101) 100 02/11/19 05:53 169/62 02/11/19 05:00 89 25 169/62 (97) 100 02/11/19 04:00 Nasal Cannula 2.0 Nasal Cannula 2.0 02/11/19 04:00 98 02/11/19 04:00 98.4 98 25 151/64 (93) 100 02/11/19 03:00 98 24 160/91 (114) 99 02/11/19 02:00 103 24 159/81 (107) 99 02/11/19 01:00 86 26 163/62 (95) 100 02/11/19 00:00 Nasal Cannula 2.0 Nasal Cannula 2.0 02/11/19 00:00 87 02/11/19 00:00 98.5 81 30 156/77 (103) 100 02/10/19 23:40 143/57 02/10/19 23:00 92 28 143/57 (85) 97 02/10/19 22:44 85 163/81 02/10/19 22:00 92 25 163/81 (108) 100 02/10/19 21:00 92 24 180/100 (126) 100 02/10/19 20:00 97.8 92 25 157/65 (95) 100 02/10/19 20:00 93 02/10/19 20:00 Nasal Cannula 2.0 Nasal Cannula 2.0 02/10/19 19:40 100 Nasal Cannula 2.0 28 02/10/19 19:00 90 28 161/61 (94) 96 02/10/19 18:00 92 26 153/55 (87) 97 02/10/19 17:33 143/93 02/10/19 17:09 100 Cool Aerosol 6.0 28 02/10/19 17:00 98 20 143/93 (110) 100 02/10/19 16:54 92 24 176/69 (104) 100 02/10/19 16:00 98.6 102 27 162/70 (100) 98 02/10/19 16:00 86 02/10/19 16:00 Nasal Cannula 2.0 Nasal Cannula 2.0 Intake and Output 02/10/19 02/11/19 18:59 06:59 Intake Total 1004.5 ml 890.0 ml Output Total 955 ml 1055 ml Balance 49.5 ml -165.0 ml Intake Oral 0 ml 0 ml IV Total 1004.5 ml 890.0 ml Output Urine Total 955 ml 1055 ml # Bowel Movements 3 Laboratory Tests 02/11/19 06:10: White Blood Count 13.2H, Red Blood Count 3.68L, Hemoglobin 11.4L, Hematocrit 33.5L, Mean Corpuscular Volume 91, Mean Corpuscular Hemoglobin 31.1H, Mean Corpuscular Hemoglobin Concent 34.2, Red Cell Distribution Width 12.8, Platelet Count 200, Mean Platelet Volume 5.0L, Neutrophils (%) (Auto) 80.9H, Lymphocytes (%) (Auto) 12.2L, Monocytes (%) (Auto) 5.7, Eosinophils (%) (Auto) 0.7, Basophils (%) (Auto) 0.5, Sodium Level 143, Potassium Level 2.9L, Chloride Level 109H, Carbon Dioxide Level 26, Anion Gap 8, Blood Urea Nitrogen 5L, Creatinine 0.5L, Estimat Glomerular Filtration Rate , Glucose Level 109H, Calcium Level 7.8L, Phosphorus Level 3.0 Height (Feet): 5 Height (Inches): 5.00 Weight (Pounds): 124 Cardiovascular: regular rhythm Respiratory/Chest: lungs clear Abdomen: non tender Harvey Gee MD Feb 11, 2019 15:16
[2019-02-11] MEDS ORDERED: Tubing IV Secondary IV ONE (15:39)
[2019-02-11] MEDS ORDERED: D5 1/2NS 1000ml IV ONE ×2 (15:39→17:45)
[2019-02-11] MEDS ORDERED: NS 275ml ONE (15:39)
--- NOTE | 2019-02-11 15:40 | Nephrology Progress Note ---
Assessment/Plan Problem List: (1) ARF (acute renal failure) (2) Dehydration (3) Acute respiratory failure (4) Esophageal varices (5) GIB (gastrointestinal bleeding) Assessment Acute renal failure , Cr lower now intubated Dehydration Hyperglycemia high Lactate level esophageal bleed GI bleed . Plan Hydrate- per GI- Monitor lytes and renal parameters protonix Thiamin Weaning as possible Subjective ROS Limited/Unobtainable: No Constitutional: Reports: malaise, weakness Objective Objective Last 24 Hour Vital Signs Date Time Temp Pulse Resp B/P (MAP) Pulse Ox O2 Delivery O2 Flow Rate FiO2 02/11/19 12:00 Nasal Cannula 2.0 Nasal Cannula 2.0 02/11/19 12:00 98.8 83 24 169/63 (98) 100 02/11/19 12:00 101 02/11/19 11:00 80 26 169/61 (97) 100 02/11/19 10:00 88 25 132/66 (88) 100 02/11/19 09:00 94 27 180/115 (136) 99 02/11/19 08:00 98.6 103 25 167/72 (103) 99 02/11/19 08:00 Nasal Cannula 2.0 Nasal Cannula 2.0 02/11/19 08:00 91 02/11/19 07:29 100 Nasal Cannula 2.0 28 02/11/19 07:00 104 20 164/67 (99) 100 02/11/19 06:00 90 26 166/69 (101) 100 02/11/19 05:53 169/62 02/11/19 05:00 89 25 169/62 (97) 100 02/11/19 04:00 Nasal Cannula 2.0 Nasal Cannula 2.0 02/11/19 04:00 98 02/11/19 04:00 98.4 98 25 151/64 (93) 100 02/11/19 03:00 98 24 160/91 (114) 99 02/11/19 02:00 103 24 159/81 (107) 99 02/11/19 01:00 86 26 163/62 (95) 100 02/11/19 00:00 Nasal Cannula 2.0 Nasal Cannula 2.0 02/11/19 00:00 87 02/11/19 00:00 98.5 81 30 156/77 (103) 100 02/10/19 23:40 143/57 02/10/19 23:00 92 28 143/57 (85) 97 02/10/19 22:44 85 163/81 02/10/19 22:00 92 25 163/81 (108) 100 02/10/19 21:00 92 24 180/100 (126) 100 02/10/19 20:00 97.8 92 25 157/65 (95) 100 02/10/19 20:00 93 02/10/19 20:00 Nasal Cannula 2.0 Nasal Cannula 2.0 02/10/19 19:40 100 Nasal Cannula 2.0 28 02/10/19 19:00 90 28 161/61 (94) 96 02/10/19 18:00 92 26 153/55 (87) 97 02/10/19 17:33 143/93 02/10/19 17:09 100 Cool Aerosol 6.0 28 02/10/19 17:00 98 20 143/93 (110) 100 02/10/19 16:54 92 24 176/69 (104) 100 02/10/19 16:00 98.6 102 27 162/70 (100) 98 02/10/19 16:00 86 02/10/19 16:00 Nasal Cannula 2.0 Nasal Cannula 2.0 Intake and Output 02/10/19 02/11/19 18:59 06:59 Intake Total 1004.5 ml 890.0 ml Output Total 955 ml 1055 ml Balance 49.5 ml -165.0 ml Intake Oral 0 ml 0 ml IV Total 1004.5 ml 890.0 ml Output Urine Total 955 ml 1055 ml # Bowel Movements 3 Laboratory Tests 02/11/19 06:10: White Blood Count 13.2H, Red Blood Count 3.68L, Hemoglobin 11.4L, Hematocrit 33.5L, Mean Corpuscular Volume 91, Mean Corpuscular Hemoglobin 31.1H, Mean Corpuscular Hemoglobin Concent 34.2, Red Cell Distribution Width 12.8, Platelet Count 200, Mean Platelet Volume 5.0L, Neutrophils (%) (Auto) 80.9H, Lymphocytes (%) (Auto) 12.2L, Monocytes (%) (Auto) 5.7, Eosinophils (%) (Auto) 0.7, Basophils (%) (Auto) 0.5, Sodium Level 143, Potassium Level 2.9L, Chloride Level 109H, Carbon Dioxide Level 26, Anion Gap 8, Blood Urea Nitrogen 5L, Creatinine 0.5L, Estimat Glomerular Filtration Rate , Glucose Level 109H, Calcium Level 7.8L, Phosphorus Level 3.0 Height (Feet): 5 Height (Inches): 5.00 Weight (Pounds): 124 General Appearance: no apparent distress Respiratory/Chest: decreased breath sounds Abdomen: distended Objective no change Arturo Cruz MD Feb 11, 2019 15:40
--- NOTE | 2019-02-11 16:50 | NUR ---
PT Note PT garrick completed, treatment initiated. Patient has muscle weakness; only able to sit at the EOB, unable to stand. Patient needs PT to increase his muscle strength to improve his functional mobility and gait to enable him to return home. Addendum: 02/11/19 at 1651 by YOANDY DENNEY PT Amended: Links added.
[2019-02-11] MEDS: Enalaprilat 1.25mg/ml Inj IV SCH ×2 (17:35→23:09)
--- NOTE | 2019-02-11 19:06 | NUR ---
HAND-OFF: Report given to Roshan Rodriguez RN. .
--- NOTE | 2019-02-11 19:15 | NUR ---
NURSE NOTES: Pt report received from Loida Proctor pt remains stable, vital signs stable. pt is alert and oriented times 4, able to follow and understand simple commands. pt hall monitor shows NRS with no other cardiac distress noted. pt is on 2 L NC and able to sat at 99%, no resp distress noted. pt bed is low, lock, armed, bed rails up times 3, call light within easy reach. protonix drip still running. will continue plan of care.
[2019-02-11] MEDS: Pantoprazole Inj IVP SCH (20:11)
[2019-02-12] VITALS: BP 157/69
[2019-02-12 04:00] VITALS: BP 155/79
[2019-02-12] MEDS: NovoLOG Insulin Flexpen SUBQ SCH ×4 (05:33→23:52)
[2019-02-12 05:35] LABS: BASOPHILS % (AUTO) 0.7 % (0.0-2.0); EOSINOPHILS % (AUTO) 1.3 % (0.0-3.0); HEMATOCRIT 32.2 % (42.0-52.0); HEMOGLOBIN 11.1 G/DL (14.2-18.0); LYMPHOCYTES % (AUTO) 11.3 % (20.0-45.0); MEAN CORPUSCULAR VOLUME 90 FL (80-99); MONOCYTES % (AUTO) 5.8 % (1.0-10.0); PLATELET COUNT 224 K/UL (150-450); RED BLOOD COUNT 3.56 M/UL (4.70-6.10); RED CELL DISTRIBUTION WIDTH 12.5 % (11.6-14.8); WHITE BLOOD COUNT 14.1 K/UL (4.8-10.8)
[2019-02-12] MEDS: Piperacillin/Tazobactam 3.375 GM in NS 110 ML IVPB SCH (05:35)
[2019-02-12] MEDS: Enalaprilat 1.25mg/ml Inj IV SCH ×4 (05:40→23:49)
[2019-02-12] MEDS: Pantoprazole 80 MG in NS 250 ML IV SCH (05:54)
[2019-02-12 06:04] LABS: ALANINE AMINOTRANSFERASE 228 U/L (12-78); ALBUMIN/GLOBULIN RATIO 0.6 (1.0-2.7); ALKALINE PHOSPHATASE 49 U/L (46-116); ANION GAP 9 mmol/L (5-15); ASPARTATE AMINO TRANSFERASE 489 U/L (15-37); BLOOD UREA NITROGEN 5 mg/dL (7-18); CARBON DIOXIDE 25 MMOL/L (21-32); CHLORIDE 106 MMOL/L (98-107); CREATININE 0.5 MG/DL (0.55-1.30); PHOSPHORUS 2.9 MG/DL (2.5-4.9); POTASSIUM 3.1 MMOL/L (3.5-5.1); SODIUM 140 MMOL/L (136-145)
--- NOTE | 2019-02-12 06:42 | NUR ---
NURSE NOTES: red tary stool noted. will endorse to oncoming nurse.
--- NOTE | 2019-02-12 07:02 | General Progress Note ---
Assessment/Plan Problem List: (1) Sepsis ICD Codes: A41.9 - Sepsis, unspecified organism SNOMED: 97780293, 35358974 Qualifiers: Qualified Codes: A41.9 - Sepsis, unspecified organism; R65.20 - Severe sepsis without septic shock; N17.9 - Acute kidney failure, unspecified (2) Sinus tachycardia ICD Codes: R00.0 - Tachycardia, unspecified SNOMED: 82081809 (3) ARF (acute renal failure) ICD Codes: N17.9 - Acute kidney failure, unspecified SNOMED: 68447974 Qualifiers: Qualified Codes: N17.9 - Acute kidney failure, unspecified (4) Lactic acidosis ICD Codes: E87.2 - Acidosis SNOMED: 06352777, 85824255 (5) Esophageal varices ICD Codes: I85.00 - Esophageal varices without bleeding SNOMED: 71413324 Status: progressing, unchanged Assessment/Plan: no need for basal insulin for now continue Novolog sliding scale Subjective ROS Limited/Unobtainable: Yes Allergies: Coded Allergies: No Known Allergies (Unverified , 02/07/19) Subjective events noted glucose values are stable Item Value Date Time Bedside Blood Glucose 97 mg/dl 02/12/19 0600 Bedside Blood Glucose 90 mg/dl 02/12/19 0000 Bedside Blood Glucose 92 mg/dl 02/11/19 1743 Bedside Blood Glucose 124 mg/dl H 02/11/19 1207 Objective Last 24 Hour Vital Signs Date Time Temp Pulse Resp B/P (MAP) Pulse Ox O2 Delivery O2 Flow Rate FiO2 02/12/19 05:40 166/82 02/12/19 04:00 Nasal Cannula 2.0 Nasal Cannula 2.0 02/12/19 04:00 97.9 88 22 155/79 (104) 100 02/12/19 04:00 89 02/12/19 00:00 Nasal Cannula 2.0 Nasal Cannula 2.0 02/12/19 00:00 103 02/12/19 00:00 98.0 90 19 157/69 (98) 99 02/11/19 23:09 157/69 02/11/19 20:00 Nasal Cannula 2.0 Nasal Cannula 2.0 02/11/19 20:00 94 Nasal Cannula 2.0 28 02/11/19 20:00 97.7 95 20 146/66 (92) 99 02/11/19 20:00 98 02/11/19 17:35 152/76 02/11/19 16:00 84 02/11/19 16:00 Nasal Cannula 2.0 Nasal Cannula 2.0 02/11/19 16:00 97.9 81 20 152/76 (101) 100 02/11/19 12:00 Nasal Cannula 2.0 Nasal Cannula 2.0 02/11/19 12:00 98.8 83 24 169/63 (98) 100 02/11/19 12:00 101 02/11/19 11:00 80 26 169/61 (97) 100 02/11/19 10:00 88 25 132/66 (88) 100 02/11/19 09:00 94 27 180/115 (136) 99 02/11/19 08:00 98.6 103 25 167/72 (103) 99 02/11/19 08:00 Nasal Cannula 2.0 Nasal Cannula 2.0 02/11/19 08:00 91 02/11/19 07:29 100 Nasal Cannula 2.0 28 Intake and Output 02/11/19 02/12/19 19:00 07:00 Intake Total 582.5 ml 747.5 ml Output Total 745 ml Balance -162.5 ml 747.5 ml Intake Oral 0 ml IV Total 582.5 ml 747.5 ml Output Urine Total 745 ml # Bowel Movements 3 3 Laboratory Tests 02/12/19 04:00: White Blood Count 14.1H, Red Blood Count 3.56L, Hemoglobin 11.1L, Hematocrit 32.2L, Mean Corpuscular Volume 90, Mean Corpuscular Hemoglobin 31.1H, Mean Corpuscular Hemoglobin Concent 34.3, Red Cell Distribution Width 12.5, Platelet Count 224, Mean Platelet Volume 4.9L, Neutrophils (%) (Auto) 81.0H, Lymphocytes (%) (Auto) 11.3L, Monocytes (%) (Auto) 5.8, Eosinophils (%) (Auto) 1.3, Basophils (%) (Auto) 0.7, Sodium Level 140, Potassium Level 3.1L, Chloride Level 106, Carbon Dioxide Level 25, Anion Gap 9, Blood Urea Nitrogen 5L, Creatinine 0.5L, Estimat Glomerular Filtration Rate , Glucose Level 106, Calcium Level 8.0L, Phosphorus Level 2.9, Magnesium Level 1.7L, Total Bilirubin 1.0, Aspartate Amino Transf (AST/SGOT) 489H, Alanine Aminotransferase (ALT/SGPT ) 228H, Alkaline Phosphatase 49, C-Reactive Protein, Quantitative 11.6H, Pro-B- Type Natriuretic Peptide 901H, Total Protein 5.3L, Albumin 2.0L, Globulin 3.3, Albumin/Globulin Ratio 0.6L Height (Feet): 5 Height (Inches): 5.00 Weight (Pounds): 123 General Appearance: no apparent distress Neck: normal alignment Cardiovascular: normal rate Respiratory/Chest: decreased breath sounds Pelvis: normal external exam Objective Current Medications Medications (Trade) Dose Ordered Sig/Manish Route PRN Reason Start Time Stop Time Status Last Admin Dose Admin Acetaminophen (Tylenol) 650 mg Q6H PRN ORAL Mild Pain/Temp > 100.5 02/11/19 13:00 03/10/19 12:59 Clotrimazole (Lotrimin) 1 applic THREE TIMES A DAY TOPIC 02/11/19 13:00 03/10/19 17:59 02/11/19 17:36 Dextrose (Dextrose 50%) 25 ml Q30M PRN IV Hypoglycemia 02/11/19 13:00 03/10/19 08:59 Dextrose (Dextrose 50%) 50 ml Q30M PRN IV Hypoglycemia 02/11/19 13:00 03/10/19 08:59 Dextrose/Sodium Chloride 1,000 ml @ 50 mls/hr Q20H IV 02/12/19 12:45 03/10/19 19:14 Enalaprilat (Vasotec) 2.5 mg Q6HR IV 02/11/19 18:00 03/13/19 17:59 02/12/19 05:40 Insulin Aspart (NovoLOG) Q6HR SUBQ 02/11/19 18:00 03/10/19 11:59 Labetalol HCl (Normodyne) 20 mg Q4H PRN IV SBP>150 02/11/19 13:30 03/10/19 13:21 Lorazepam (Ativan 2mg/ml 1ml) 1 mg Q4H PRN IV For Anxiety 02/11/19 13:00 02/15/19 12:59 Pantoprazole (Protonix) 40 mg EVERY 12 HOURS IVP 02/11/19 21:00 03/13/19 20:59 02/11/19 20:11 Pantoprazole 80 mg/Sodium Chloride 250 ml @ 25 mls/hr Q10H IV 02/11/19 20:00 03/10/19 19:59 02/12/19 05:54 Piperacillin Sod/ Tazobactam Sod 3.375 gm/Sodium Chloride 110 ml @ 27.5 mls/hr EVERY 8 HOURS IVPB 02/11/19 14:00 02/13/19 11:59 02/12/19 05:35 Thiamine HCl 100 mg/Dextrose 56 ml @ 112 mls/hr Q24H IVPB 02/12/19 13:00 03/14/19 12:59 Jt Wellington MD Feb 12, 2019 07:02
--- NOTE | 2019-02-12 07:05 | NUR ---
HAND-OFF: Report given to Brissa Robins RN MELLO.
--- NOTE | 2019-02-12 07:06 | NUR ---
NURSE NOTES: Received report from RAJI Islas. Observed patient in bed, awake, verbally responsive. On O2 2L via NC, no acute respiratory distress noted. Pt remains NPO as per ordered. Right and left IV intact and patent with IV abx running at this time. Denies pain/discomfort at this time. Safety precautions, bed locked, alarmed, and in lowest position, side rails up x3, and call light left within reach. Will continue to monitor pt.
[2019-02-12 08:00] VITALS: BP 161/77
[2019-02-12] MEDS: Pantoprazole Inj IVP SCH ×2 (08:19→20:57)
--- NOTE | 2019-02-12 10:05 | NUR ---
NURSE NOTES: Dr Milan at bedside, ordered to change diet to clear liquids. Noted and will carry out. Addendum: 02/12/19 at 1921 by Roz Avendano RN Dr Milan informed and made aware that pt still has black, tarry stools.
--- NOTE | 2019-02-12 11:17 | Hematology/Onc Progress Note ---
Assessment/Plan Assessment/Plan # Anemia due to underlying gi bleed, sp egd which showed duodenal ulceration, failed hemostasis --> surgery eval as needed, prn --> continue ppi --> coags slightly elevated, nsider vit K if persistent bleeding --> transfuse if hgb <7 --> no indication for surgery --> trend hgb 13-->11.1-->11 # Leukocytosis with Sepsis, systemic inflammatory response syndrome --> monitor for improvement --> is on abx, zosyn per id --> per id recs --> wbc 16--.14-->14 # DKA with Uncontrolled DM --> on insulin sliding scale # Lactic acidosis, --> trend as needed, on ivf, thiamine, folate # Acute renal failure improving. --> sp fluids # Onychomycosis and tinea pedis, --> podiatry consulted # Elevated transaminase level due to etoh use --> trend as needed # Acute respiratory failure --> now extubated, breathing better --> on 2l NC The timing of this note does not necessarily reflect the time of the patient was seen. GREATLY APPRECIATE CONSULTATION. Subjective HEENT: Denies: no symptoms, eye pain, blurred vision, tearing, double vision, ear pain, ear discharge, nose pain, nose congestion, throat pain, throat swelling, mouth pain, mouth swelling, other Cardiovascular: Denies: no symptoms, chest pain, edema, irregular heart rate, lightheadedness, palpitations, syncope, other Respiratory: Denies: no symptoms, cough, shortness of breath, SOB with excertion, SOB at rest, sputum, wheezing, other Gastrointestinal/Abdominal: Denies: no symptoms, abdomen distended, abdominal pain, black stools, tarry stools, blood in stool, constipated, diarrhea, difficulty swallowing, nausea, poor appetite, poor fluid intake, rectal bleeding , vomiting, other Genitourinary: Denies: no symptoms, burning, discharge, frequency, flank pain, hematuria, incontinence, pain, urgency, other Neurologic/Psychiatric: Denies: no symptoms, anxiety, depressed, emotional problems, headache, numbness, paresthesia, pre-existing deficit, seizure, tingling, tremors, weakness, other Endocrine: Denies: no symptoms, excessive sweating, flushing, intolerance to cold, intolerance to heat, increased hunger, increased thirst, increased urine, unexplained weight gain, unexplained weight loss, other Hematologic/Lymphatic: Denies: no symptoms, anemia, easy bleeding, easy bruising, adenopathy, other Allergies: Coded Allergies: No Known Allergies (Unverified , 02/07/19) Subjective 02/09: remains intubated, on vent, able to respond, in [place], to commands weaning today, h/h reviewed 02/10: icu, extubated, labs reviewed 02/12: on 2l nc, h/h reviewed, no bleeding in sdu Objective Objective Current Medications Medications (Trade) Dose Ordered Sig/Manish Route PRN Reason Start Time Stop Time Status Last Admin Dose Admin Acetaminophen (Tylenol) 650 mg Q6H PRN ORAL Mild Pain/Temp > 100.5 02/11/19 13:00 03/10/19 12:59 Clotrimazole (Lotrimin) 1 applic THREE TIMES A DAY TOPIC 02/11/19 13:00 03/10/19 17:59 02/12/19 09:23 Dextrose (Dextrose 50%) 25 ml Q30M PRN IV Hypoglycemia 02/11/19 13:00 03/10/19 08:59 Dextrose (Dextrose 50%) 50 ml Q30M PRN IV Hypoglycemia 02/11/19 13:00 03/10/19 08:59 Dextrose/Sodium Chloride 1,000 ml @ 50 mls/hr Q20H IV 02/12/19 12:45 03/10/19 19:14 Enalaprilat (Vasotec) 2.5 mg Q6HR IV 02/11/19 18:00 03/13/19 17:59 02/12/19 05:40 Insulin Aspart (NovoLOG) Q6HR SUBQ 02/11/19 18:00 03/10/19 11:59 Labetalol HCl (Normodyne) 20 mg Q4H PRN IV SBP>150 02/11/19 13:30 03/10/19 13:21 Lorazepam (Ativan 2mg/ml 1ml) 1 mg Q4H PRN IV For Anxiety 02/11/19 13:00 02/15/19 12:59 Pantoprazole (Protonix) 40 mg EVERY 12 HOURS IVP 02/11/19 21:00 03/13/19 20:59 02/12/19 08:19 Pantoprazole 80 mg/Sodium Chloride 250 ml @ 25 mls/hr Q10H IV 02/11/19 20:00 03/10/19 19:59 02/12/19 05:54 Piperacillin Sod/ Tazobactam Sod 3.375 gm/Sodium Chloride 110 ml @ 27.5 mls/hr EVERY 8 HOURS IVPB 02/11/19 14:00 02/13/19 11:59 02/12/19 05:35 Thiamine HCl 100 mg/Dextrose 56 ml @ 112 mls/hr Q24H IVPB 02/12/19 13:00 03/14/19 12:59 Last 24 Hour Vital Signs Date Time Temp Pulse Resp B/P (MAP) Pulse Ox O2 Delivery O2 Flow Rate FiO2 02/12/19 08:00 Nasal Cannula 2.0 Nasal Cannula 2.0 02/12/19 08:00 97.7 91 20 161/77 (105) 100 02/12/19 07:40 94 02/12/19 06:55 100 Nasal Cannula 2.0 28 02/12/19 05:40 166/82 02/12/19 04:00 Nasal Cannula 2.0 Nasal Cannula 2.0 02/12/19 04:00 97.9 88 22 155/79 (104) 100 02/12/19 04:00 89 02/12/19 00:00 Nasal Cannula 2.0 Nasal Cannula 2.0 02/12/19 00:00 103 02/12/19 00:00 98.0 90 19 157/69 (98) 99 02/11/19 23:09 157/69 02/11/19 20:00 Nasal Cannula 2.0 Nasal Cannula 2.0 02/11/19 20:00 94 Nasal Cannula 2.0 28 02/11/19 20:00 97.7 95 20 146/66 (92) 99 02/11/19 20:00 98 02/11/19 17:35 152/76 02/11/19 16:00 84 02/11/19 16:00 Nasal Cannula 2.0 Nasal Cannula 2.0 02/11/19 16:00 97.9 81 20 152/76 (101) 100 02/11/19 12:00 Nasal Cannula 2.0 Nasal Cannula 2.0 02/11/19 12:00 98.8 83 24 169/63 (98) 100 02/11/19 12:00 101 02/11/19 11:00 80 26 169/61 (97) 100 02/11/19 10:00 88 25 132/66 (88) 100 02/11/19 09:00 94 27 180/115 (136) 99 02/11/19 08:00 98.6 103 25 167/72 (103) 99 02/11/19 08:00 Nasal Cannula 2.0 Nasal Cannula 2.0 02/11/19 08:00 91 02/11/19 07:29 100 Nasal Cannula 2.0 28 02/11/19 07:00 104 20 164/67 (99) 100 02/11/19 06:00 90 26 166/69 (101) 100 02/11/19 05:53 169/62 02/11/19 05:00 89 25 169/62 (97) 100 02/11/19 04:00 Nasal Cannula 2.0 Nasal Cannula 2.0 02/11/19 04:00 98 02/11/19 04:00 98.4 98 25 151/64 (93) 100 02/11/19 03:00 98 24 160/91 (114) 99 02/11/19 02:00 103 24 159/81 (107) 99 02/11/19 01:00 86 26 163/62 (95) 100 02/11/19 00:00 Nasal Cannula 2.0 Nasal Cannula 2.0 02/11/19 00:00 87 02/11/19 00:00 98.5 81 30 156/77 (103) 100 02/10/19 23:40 143/57 02/10/19 23:00 92 28 143/57 (85) 97 02/10/19 22:44 85 163/81 02/10/19 22:00 92 25 163/81 (108) 100 02/10/19 21:00 92 24 180/100 (126) 100 02/10/19 20:00 97.8 92 25 157/65 (95) 100 02/10/19 20:00 93 02/10/19 20:00 Nasal Cannula 2.0 Nasal Cannula 2.0 02/10/19 19:40 100 Nasal Cannula 2.0 28 02/10/19 19:00 90 28 161/61 (94) 96 02/10/19 18:00 92 26 153/55 (87) 97 02/10/19 17:33 143/93 02/10/19 17:09 100 Cool Aerosol 6.0 28 02/10/19 17:00 98 20 143/93 (110) 100 02/10/19 16:54 92 24 176/69 (104) 100 02/10/19 16:00 98.6 102 27 162/70 (100) 98 02/10/19 16:00 86 02/10/19 16:00 Nasal Cannula 2.0 Nasal Cannula 2.0 02/10/19 15:00 91 25 180/62 (101) 100 02/10/19 14:15 83 171/66 02/10/19 14:00 84 28 170/65 (100) 100 02/10/19 13:00 86 27 173/68 (103) 100 02/10/19 12:00 98.9 87 23 160/73 (102) 100 02/10/19 12:00 Simple Mask 6.0 Simple Mask 6.0 02/10/19 12:00 90 02/10/19 11:34 174/84 Intake and Output 02/11/19 02/12/19 19:00 07:00 Intake Total 582.5 ml 772.5 ml Output Total 745 ml Balance -162.5 ml 772.5 ml Intake Oral 0 ml IV Total 582.5 ml 772.5 ml Output Urine Total 745 ml # Bowel Movements 3 3 Labs Test 02/09/19 12:45 02/10/19 03:20 02/10/19 10:05 02/11/19 06:10 Lactic Acid Level 1.00 mmol/L (0.66-2.22) White Blood Count 14.4 K/UL (4.8-10.8) 13.2 K/UL (4.8-10.8) Red Blood Count 3.75 M/UL (4.70-6.10) 3.68 M/UL (4.70-6.10) Hemoglobin 11.7 G/DL (14.2-18.0) 11.4 G/DL (14.2-18.0) Hematocrit 33.8 % (42.0-52.0) 33.5 % (42.0-52.0) Mean Corpuscular Volume 90 FL (80-99) 91 FL (80-99) Mean Corpuscular Hemoglobin 31.2 PG (27.0-31.0) 31.1 PG (27.0-31.0) Mean Corpuscular Hemoglobin Concent 34.6 G/DL (32.0-36.0) 34.2 G/DL (32.0-36.0) Red Cell Distribution Width 13.1 % (11.6-14.8) 12.8 % (11.6-14.8) Platelet Count 191 K/UL (150-450) 200 K/UL (150-450) Mean Platelet Volume 5.6 FL (6.5-10.1) 5.0 FL (6.5-10.1) Neutrophils (%) (Auto) 79.6 % (45.0-75.0) 80.9 % (45.0-75.0) Lymphocytes (%) (Auto) 13.0 % (20.0-45.0) 12.2 % (20.0-45.0) Monocytes (%) (Auto) 6.2 % (1.0-10.0) 5.7 % (1.0-10.0) Eosinophils (%) (Auto) 0.7 % (0.0-3.0) 0.7 % (0.0-3.0) Basophils (%) (Auto) 0.6 % (0.0-2.0) 0.5 % (0.0-2.0) Sodium Level 139 MMOL/L (136-145) 143 MMOL/L (136-145) Potassium Level 2.8 MMOL/L (3.5-5.1) 2.9 MMOL/L (3.5-5.1) Chloride Level 108 MMOL/L (98-107) 109 MMOL/L (98-107) Carbon Dioxide Level 25 MMOL/L (21-32) 26 MMOL/L (21-32) Anion Gap 6 mmol/L (5-15) 8 mmol/L (5-15) Blood Urea Nitrogen 5 mg/dL (7-18) 5 mg/dL (7-18) Creatinine 0.6 MG/DL (0.55-1.30) 0.5 MG/DL (0.55-1.30) Estimat Glomerular Filtration Rate mL/min (>60) mL/min (>60) Glucose Level 104 MG/DL (74-106) 109 MG/DL (74-106) Uric Acid 1.6 MG/DL (2.6-7.2) Calcium Level 7.8 MG/DL (8.5-10.1) 7.8 MG/DL (8.5-10.1) Phosphorus Level 2.1 MG/DL (2.5-4.9) 3.0 MG/DL (2.5-4.9) Magnesium Level 1.9 MG/DL (1.8-2.4) Total Bilirubin 1.2 MG/DL (0.2-1.0) Direct Bilirubin 0.3 MG/DL (0.0-0.3) Gamma Glutamyl Transpeptidase 29 U/L (5-85) Aspartate Amino Transf (AST/SGOT) 965 U/L (15-37) Alanine Aminotransferase (ALT/SGPT) 232 U/L (12-78) Alkaline Phosphatase 48 U/L (46-116) C-Reactive Protein, Quantitative 16.8 mg/dL (0.00-0.90) Pro-B-Type Natriuretic Peptide 862 pg/mL (0-125) Total Protein 5.0 G/DL (6.4-8.2) Albumin 2.0 G/DL (3.4-5.0) Globulin 3.0 g/dL Albumin/Globulin Ratio 0.7 (1.0-2.7) Arterial Blood pH 7.451 (7.350-7.450) Arterial Blood Partial Pressure CO2 34.6 mmHg (35.0-45.0) Arterial Blood Partial Pressure O2 112.2 mmHg (75.0-100.0) Arterial Blood HCO3 23.6 mmol/L (22.0-26.0) Arterial Blood Oxygen Saturation 97.7 % (95-100) Arterial Blood Base Excess 0 (-2-2) Uvaldo Test Positive Test 02/12/19 04:00 White Blood Count 14.1 K/UL (4.8-10.8) Red Blood Count 3.56 M/UL (4.70-6.10) Hemoglobin 11.1 G/DL (14.2-18.0) Hematocrit 32.2 % (42.0-52.0) Mean Corpuscular Volume 90 FL (80-99) Mean Corpuscular Hemoglobin 31.1 PG (27.0-31.0) Mean Corpuscular Hemoglobin Concent 34.3 G/DL (32.0-36.0) Red Cell Distribution Width 12.5 % (11.6-14.8) Platelet Count 224 K/UL (150-450) Mean Platelet Volume 4.9 FL (6.5-10.1) Neutrophils (%) (Auto) 81.0 % (45.0-75.0) Lymphocytes (%) (Auto) 11.3 % (20.0-45.0) Monocytes (%) (Auto) 5.8 % (1.0-10.0) Eosinophils (%) (Auto) 1.3 % (0.0-3.0) Basophils (%) (Auto) 0.7 % (0.0-2.0) Sodium Level 140 MMOL/L (136-145) Potassium Level 3.1 MMOL/L (3.5-5.1) Chloride Level 106 MMOL/L (98-107) Carbon Dioxide Level 25 MMOL/L (21-32) Anion Gap 9 mmol/L (5-15) Blood Urea Nitrogen 5 mg/dL (7-18) Creatinine 0.5 MG/DL (0.55-1.30) Estimat Glomerular Filtration Rate mL/min (>60) Glucose Level 106 MG/DL (74-106) Calcium Level 8.0 MG/DL (8.5-10.1) Phosphorus Level 2.9 MG/DL (2.5-4.9) Magnesium Level 1.7 MG/DL (1.8-2.4) Total Bilirubin 1.0 MG/DL (0.2-1.0) Aspartate Amino Transf (AST/SGOT) 489 U/L (15-37) Alanine Aminotransferase (ALT/SGPT) 228 U/L (12-78) Alkaline Phosphatase 49 U/L (46-116) C-Reactive Protein, Quantitative 11.6 mg/dL (0.00-0.90) Pro-B-Type Natriuretic Peptide 901 pg/mL (0-125) Total Protein 5.3 G/DL (6.4-8.2) Albumin 2.0 G/DL (3.4-5.0) Globulin 3.3 g/dL Albumin/Globulin Ratio 0.6 (1.0-2.7) Height (Feet): 5 Height (Inches): 5.00 Weight (Pounds): 123 Objective General Appearance: no acute distress HEENT: mucous membranes moist Respiratory/Chest: lungs clear, 2l nc Cardiovascular: normal rate Abdomen: soft, non tender Extremities: no edema Neurologic/Psychiatric: alert, responsive Hal Smith MD Feb 12, 2019 11:17
--- NOTE | 2019-02-12 11:32 | Infectious Diseases Prog Note ---
Assessment/Plan Assessment/Plan IMPRESSION: Sepsis, systemic inflammatory response syndrome, GI bleeding Duodenal ulcer. Uncontrolled DM Lactic acidosis, Acute renal failure improving. Onychomycosis and tinea pedis, anemia, received blood transfusion, Elevated transaminase level. Acute respiratory failure resolved RECOMMENDATION: continue topical clotrimazole stop Zosyn Follow up the culture and lab. Subjective ROS Limited/Unobtainable: Yes Constitutional: Reports: no symptoms, other - Doing better, transferred from ICU to step down unit Respiratory: Reports: no symptoms Gastrointestinal/Abdominal: Reports: no symptoms Genitourinary: Reports: no symptoms Allergies: Coded Allergies: No Known Allergies (Unverified , 02/07/19) Objective Vital Signs Last 24 Hour Vital Signs Date Time Temp Pulse Resp B/P (MAP) Pulse Ox O2 Delivery O2 Flow Rate FiO2 02/12/19 08:00 Nasal Cannula 2.0 Nasal Cannula 2.0 02/12/19 08:00 97.7 91 20 161/77 (105) 100 02/12/19 07:40 94 02/12/19 06:55 100 Nasal Cannula 2.0 28 02/12/19 05:40 166/82 02/12/19 04:00 Nasal Cannula 2.0 Nasal Cannula 2.0 02/12/19 04:00 97.9 88 22 155/79 (104) 100 02/12/19 04:00 89 02/12/19 00:00 Nasal Cannula 2.0 Nasal Cannula 2.0 02/12/19 00:00 103 02/12/19 00:00 98.0 90 19 157/69 (98) 99 02/11/19 23:09 157/69 02/11/19 20:00 Nasal Cannula 2.0 Nasal Cannula 2.0 02/11/19 20:00 94 Nasal Cannula 2.0 28 02/11/19 20:00 97.7 95 20 146/66 (92) 99 02/11/19 20:00 98 02/11/19 17:35 152/76 02/11/19 16:00 84 02/11/19 16:00 Nasal Cannula 2.0 Nasal Cannula 2.0 02/11/19 16:00 97.9 81 20 152/76 (101) 100 02/11/19 12:00 Nasal Cannula 2.0 Nasal Cannula 2.0 02/11/19 12:00 98.8 83 24 169/63 (98) 100 02/11/19 12:00 101 Height (Feet): 5 Height (Inches): 5.00 Weight (Pounds): 123 General Appearance: no acute distress HEENT: mucous membranes moist Respiratory/Chest: lungs clear Cardiovascular: normal rate Abdomen: soft, non tender Extremities: no edema Neurologic/Psychiatric: alert, responsive Laboratory Tests Test 02/12/19 04:00 White Blood Count 14.1 K/UL (4.8-10.8) H Red Blood Count 3.56 M/UL (4.70-6.10) L Hemoglobin 11.1 G/DL (14.2-18.0) L Hematocrit 32.2 % (42.0-52.0) L Mean Corpuscular Volume 90 FL (80-99) Mean Corpuscular Hemoglobin 31.1 PG (27.0-31.0) H Mean Corpuscular Hemoglobin Concent 34.3 G/DL (32.0-36.0) Red Cell Distribution Width 12.5 % (11.6-14.8) Platelet Count 224 K/UL (150-450) Mean Platelet Volume 4.9 FL (6.5-10.1) L Neutrophils (%) (Auto) 81.0 % (45.0-75.0) H Lymphocytes (%) (Auto) 11.3 % (20.0-45.0) L Monocytes (%) (Auto) 5.8 % (1.0-10.0) Eosinophils (%) (Auto) 1.3 % (0.0-3.0) Basophils (%) (Auto) 0.7 % (0.0-2.0) Sodium Level 140 MMOL/L (136-145) Potassium Level 3.1 MMOL/L (3.5-5.1) L Chloride Level 106 MMOL/L (98-107) Carbon Dioxide Level 25 MMOL/L (21-32) Anion Gap 9 mmol/L (5-15) Blood Urea Nitrogen 5 mg/dL (7-18) L Creatinine 0.5 MG/DL (0.55-1.30) L Estimat Glomerular Filtration Rate mL/min (>60) Glucose Level 106 MG/DL (74-106) Calcium Level 8.0 MG/DL (8.5-10.1) L Phosphorus Level 2.9 MG/DL (2.5-4.9) Magnesium Level 1.7 MG/DL (1.8-2.4) L Total Bilirubin 1.0 MG/DL (0.2-1.0) Aspartate Amino Transf (AST/SGOT) 489 U/L (15-37) H Alanine Aminotransferase (ALT/SGPT) 228 U/L (12-78) H Alkaline Phosphatase 49 U/L (46-116) C-Reactive Protein, Quantitative 11.6 mg/dL (0.00-0.90) H Pro-B-Type Natriuretic Peptide 901 pg/mL (0-125) H Total Protein 5.3 G/DL (6.4-8.2) L Albumin 2.0 G/DL (3.4-5.0) L Globulin 3.3 g/dL Albumin/Globulin Ratio 0.6 (1.0-2.7) L Current Medications Medications (Trade) Dose Ordered Sig/Manish Route PRN Reason Start Time Stop Time Status Last Admin Dose Admin Acetaminophen (Tylenol) 650 mg Q6H PRN ORAL Mild Pain/Temp > 100.5 02/11/19 13:00 03/10/19 12:59 Clotrimazole (Lotrimin) 1 applic THREE TIMES A DAY TOPIC 02/11/19 13:00 03/10/19 17:59 02/12/19 09:23 Dextrose (Dextrose 50%) 25 ml Q30M PRN IV Hypoglycemia 02/11/19 13:00 03/10/19 08:59 Dextrose (Dextrose 50%) 50 ml Q30M PRN IV Hypoglycemia 02/11/19 13:00 03/10/19 08:59 Dextrose/Sodium Chloride 1,000 ml @ 50 mls/hr Q20H IV 02/12/19 12:45 03/10/19 19:14 Enalaprilat (Vasotec) 2.5 mg Q6HR IV 02/11/19 18:00 03/13/19 17:59 02/12/19 05:40 Insulin Aspart (NovoLOG) Q6HR SUBQ 02/11/19 18:00 03/10/19 11:59 Labetalol HCl (Normodyne) 20 mg Q4H PRN IV SBP>150 02/11/19 13:30 03/10/19 13:21 Lorazepam (Ativan 2mg/ml 1ml) 1 mg Q4H PRN IV For Anxiety 02/11/19 13:00 02/15/19 12:59 Pantoprazole (Protonix) 40 mg EVERY 12 HOURS IVP 02/11/19 21:00 03/13/19 20:59 02/12/19 08:19 Pantoprazole 80 mg/Sodium Chloride 250 ml @ 25 mls/hr Q10H IV 02/11/19 20:00 03/10/19 19:59 02/12/19 05:54 Piperacillin Sod/ Tazobactam Sod 3.375 gm/Sodium Chloride 110 ml @ 27.5 mls/hr EVERY 8 HOURS IVPB 02/11/19 14:00 02/13/19 11:59 02/12/19 05:35 Thiamine HCl 100 mg/Dextrose 56 ml @ 112 mls/hr Q24H IVPB 02/12/19 13:00 03/14/19 12:59 Fazal Basilio MD Feb 12, 2019 11:32
[2019-02-12 12:00] VITALS: BP 149/80
--- NOTE | 2019-02-12 12:01 | Pulmonolgy Critical Care Note ---
Critical Care - Asmt/Plan Assessment/Plan: Pulmonary CCM Progress Note HPI Patient is a 69-year-old male admitted with generalized weakness, altered mental status. [place] was [place] a bus stop when a friend called 911. Noted to have hemodynamically significant Gastrointestinal Bleed in the ED, Evidence of Sigmoid/Rectal thickening on CT abdomen, Urinary Tract Infection. Had significantly elevated Lactic Acid and Glucose Level (minimal Ketones in urine) , abnormal renal function. No history of trauma noted. No complaint of pain or shortness of breath. Improved condition, in SDU No complaints Allergies: No Known Allergies Past Medical History: Diabetes All Other Systems: limited - Secondary to patient's condition Physical Exam Vital Signs Noted General Appearance: awake Head: normocephalic, atraumatic Eyes: bilateral eye PERRL, bilateral eye EOMI ENT: normal pharynx, moist mucus membranes Neck: no LN Respiratory: chest non-tender, lungs clear, normal breath sounds Cardiovascular: regular rate, rhythm, no murmur, HS1, HS2 normal Gastrointestinal: normal bowel sounds, non tender, no mass, no organomegaly, no bruit, non-distended Musculoskeletal: back normal, normal range of motion Neurologic: rossly normal, no focal signs, no seizures Impression: Gastrointestinal bleed Anemia Possible Mesenteric Ischemia given degree of acidosis, possible Colitis given CT findings Sepsis Urinary Tract Infection Hypovolemia Acute kidney failure Lactic acidosis Diabetes ARF (acute renal failure) Plan NC O2 PRN CPT, HHN IVF PRN Diet as tolerated per GI ISS Monitor labs PPX EKG: Rhythm: NSR, no PVC's Chest X-Ray: no consolidation, no effusion, no pneumothorax, no acute cardiopulmonary disease, No acute disease CT Abdomen: Patient was noted to have concentric thickening Sigmoid colon and rectum Critical Care - Objective Last 24 Hour Vital Signs Date Time Temp Pulse Resp B/P (MAP) Pulse Ox O2 Delivery O2 Flow Rate FiO2 02/12/19 11:54 159/73 02/12/19 08:00 Nasal Cannula 2.0 Nasal Cannula 2.0 02/12/19 08:00 97.7 91 20 161/77 (105) 100 02/12/19 07:40 94 02/12/19 06:55 100 Nasal Cannula 2.0 28 02/12/19 05:40 166/82 02/12/19 04:00 Nasal Cannula 2.0 Nasal Cannula 2.0 02/12/19 04:00 97.9 88 22 155/79 (104) 100 02/12/19 04:00 89 02/12/19 00:00 Nasal Cannula 2.0 Nasal Cannula 2.0 02/12/19 00:00 103 02/12/19 00:00 98.0 90 19 157/69 (98) 99 02/11/19 23:09 157/69 02/11/19 20:00 Nasal Cannula 2.0 Nasal Cannula 2.0 02/11/19 20:00 94 Nasal Cannula 2.0 28 02/11/19 20:00 97.7 95 20 146/66 (92) 99 02/11/19 20:00 98 02/11/19 17:35 152/76 02/11/19 16:00 84 02/11/19 16:00 Nasal Cannula 2.0 Nasal Cannula 2.0 02/11/19 16:00 97.9 81 20 152/76 (101) 100 Accucheck: 97 Critical Care - Subjective ROS Limited/Unobtainable: No FI02: 28 Vent Support Breath Rate: 18 Vent Support Mode: CPAP Vent Tidal Volume: 500 Sputum Amount: Small PEEP: 5.0 PIP: 13 I&O: Intake and Output 02/11/19 02/12/19 19:00 07:00 Intake Total 582.5 ml 772.5 ml Output Total 745 ml Balance -162.5 ml 772.5 ml Intake Oral 0 ml IV Total 582.5 ml 772.5 ml Output Urine Total 745 ml # Bowel Movements 3 3 ET-Tube: 7.5 ET Position: 22 Prince Gallagher MD Feb 12, 2019 12:01
[2019-02-12] MEDS: D5 1/2NS 1,000 ML IV SCH (12:15)
[2019-02-12] MEDS: Thiamine HCl 100 MG in D5W 55 ML IVPB SCH (12:55)
--- NOTE | 2019-02-12 13:26 | Cardiology Report ---
APPROVED REPORT EKG Measurement Heart [id number] AR [id number] Sinus tachycardia Nonspecific ST abnormality Abnormal ECG
--- NOTE | 2019-02-12 13:42 | Nephrology Progress Note ---
Assessment/Plan Problem List: (1) ARF (acute renal failure) (2) Dehydration (3) Acute respiratory failure (4) Esophageal varices (5) GIB (gastrointestinal bleeding) Assessment Acute renal failure , Cr lower now intubated Dehydration Hyperglycemia high Lactate level esophageal bleed GI bleed . Plan Hydrate- per GI- Monitor lytes and renal parameters protonix Thiamin Weaning as possible Subjective ROS Limited/Unobtainable: No Constitutional: Reports: malaise Objective Objective Last 24 Hour Vital Signs Date Time Temp Pulse Resp B/P (MAP) Pulse Ox O2 Delivery O2 Flow Rate FiO2 02/12/19 12:00 Nasal Cannula 2.0 Nasal Cannula 2.0 02/12/19 12:00 98.2 94 22 149/80 (103) 98 02/12/19 11:54 159/73 02/12/19 08:00 Nasal Cannula 2.0 Nasal Cannula 2.0 02/12/19 08:00 97.7 91 20 161/77 (105) 100 02/12/19 07:40 94 02/12/19 06:55 100 Nasal Cannula 2.0 28 02/12/19 05:40 166/82 02/12/19 04:00 Nasal Cannula 2.0 Nasal Cannula 2.0 02/12/19 04:00 97.9 88 22 155/79 (104) 100 02/12/19 04:00 89 02/12/19 00:00 Nasal Cannula 2.0 Nasal Cannula 2.0 02/12/19 00:00 103 02/12/19 00:00 98.0 90 19 157/69 (98) 99 02/11/19 23:09 157/69 02/11/19 20:00 Nasal Cannula 2.0 Nasal Cannula 2.0 02/11/19 20:00 94 Nasal Cannula 2.0 28 02/11/19 20:00 97.7 95 20 146/66 (92) 99 02/11/19 20:00 98 02/11/19 17:35 152/76 02/11/19 16:00 84 02/11/19 16:00 Nasal Cannula 2.0 Nasal Cannula 2.0 02/11/19 16:00 97.9 81 20 152/76 (101) 100 Intake and Output 02/11/19 02/12/19 19:00 07:00 Intake Total 582.5 ml 772.5 ml Output Total 745 ml Balance -162.5 ml 772.5 ml Intake Oral 0 ml IV Total 582.5 ml 772.5 ml Output Urine Total 745 ml # Bowel Movements 3 3 Laboratory Tests 02/12/19 04:00: White Blood Count 14.1H, Red Blood Count 3.56L, Hemoglobin 11.1L, Hematocrit 32.2L, Mean Corpuscular Volume 90, Mean Corpuscular Hemoglobin 31.1H, Mean Corpuscular Hemoglobin Concent 34.3, Red Cell Distribution Width 12.5, Platelet Count 224, Mean Platelet Volume 4.9L, Neutrophils (%) (Auto) 81.0H, Lymphocytes (%) (Auto) 11.3L, Monocytes (%) (Auto) 5.8, Eosinophils (%) (Auto) 1.3, Basophils (%) (Auto) 0.7, Sodium Level 140, Potassium Level 3.1L, Chloride Level 106, Carbon Dioxide Level 25, Anion Gap 9, Blood Urea Nitrogen 5L, Creatinine 0.5L, Estimat Glomerular Filtration Rate , Glucose Level 106, Calcium Level 8.0L, Phosphorus Level 2.9, Magnesium Level 1.7L, Total Bilirubin 1.0, Aspartate Amino Transf (AST/SGOT) 489H, Alanine Aminotransferase (ALT/SGPT ) 228H, Alkaline Phosphatase 49, C-Reactive Protein, Quantitative 11.6H, Pro-B- Type Natriuretic Peptide 901H, Total Protein 5.3L, Albumin 2.0L, Globulin 3.3, Albumin/Globulin Ratio 0.6L Height (Feet): 5 Height (Inches): 5.00 Weight (Pounds): 123 General Appearance: no apparent distress Objective no change Arturo Cruz MD Feb 12, 2019 13:42
--- NOTE | 2019-02-12 13:57 | Surgery Progress Note ---
Surgery Progress Note Subjective Additional Comments no acute events comfortable stable exam unchanged leukocytosis anemia h/h stable for 3 days Objective Last 24 Hour Vital Signs Date Time Temp Pulse Resp B/P (MAP) Pulse Ox O2 Delivery O2 Flow Rate FiO2 02/12/19 12:00 Nasal Cannula 2.0 Nasal Cannula 2.0 02/12/19 12:00 98.2 94 22 149/80 (103) 98 02/12/19 11:54 159/73 02/12/19 08:00 Nasal Cannula 2.0 Nasal Cannula 2.0 02/12/19 08:00 97.7 91 20 161/77 (105) 100 02/12/19 07:40 94 02/12/19 06:55 100 Nasal Cannula 2.0 28 02/12/19 05:40 166/82 02/12/19 04:00 Nasal Cannula 2.0 Nasal Cannula 2.0 02/12/19 04:00 97.9 88 22 155/79 (104) 100 02/12/19 04:00 89 02/12/19 00:00 Nasal Cannula 2.0 Nasal Cannula 2.0 02/12/19 00:00 103 02/12/19 00:00 98.0 90 19 157/69 (98) 99 02/11/19 23:09 157/69 02/11/19 20:00 Nasal Cannula 2.0 Nasal Cannula 2.0 02/11/19 20:00 94 Nasal Cannula 2.0 28 02/11/19 20:00 97.7 95 20 146/66 (92) 99 02/11/19 20:00 98 02/11/19 17:35 152/76 02/11/19 16:00 84 02/11/19 16:00 Nasal Cannula 2.0 Nasal Cannula 2.0 02/11/19 16:00 97.9 81 20 152/76 (101) 100 I&O Intake and Output 02/11/19 02/12/19 19:00 07:00 Intake Total 582.5 ml 772.5 ml Output Total 745 ml Balance -162.5 ml 772.5 ml Intake Oral 0 ml IV Total 582.5 ml 772.5 ml Output Urine Total 745 ml # Bowel Movements 3 3 Cardiovascular: RSR Respiratory: clear Abdomen: soft, non-tender, present bowel sounds Extremities: no tenderness, no cyanosis Laboratory Tests Test 02/12/19 04:00 White Blood Count 14.1 K/UL (4.8-10.8) H Red Blood Count 3.56 M/UL (4.70-6.10) L Hemoglobin 11.1 G/DL (14.2-18.0) L Hematocrit 32.2 % (42.0-52.0) L Mean Corpuscular Volume 90 FL (80-99) Mean Corpuscular Hemoglobin 31.1 PG (27.0-31.0) H Mean Corpuscular Hemoglobin Concent 34.3 G/DL (32.0-36.0) Red Cell Distribution Width 12.5 % (11.6-14.8) Platelet Count 224 K/UL (150-450) Mean Platelet Volume 4.9 FL (6.5-10.1) L Neutrophils (%) (Auto) 81.0 % (45.0-75.0) H Lymphocytes (%) (Auto) 11.3 % (20.0-45.0) L Monocytes (%) (Auto) 5.8 % (1.0-10.0) Eosinophils (%) (Auto) 1.3 % (0.0-3.0) Basophils (%) (Auto) 0.7 % (0.0-2.0) Sodium Level 140 MMOL/L (136-145) Potassium Level 3.1 MMOL/L (3.5-5.1) L Chloride Level 106 MMOL/L (98-107) Carbon Dioxide Level 25 MMOL/L (21-32) Anion Gap 9 mmol/L (5-15) Blood Urea Nitrogen 5 mg/dL (7-18) L Creatinine 0.5 MG/DL (0.55-1.30) L Estimat Glomerular Filtration Rate mL/min (>60) Glucose Level 106 MG/DL (74-106) Calcium Level 8.0 MG/DL (8.5-10.1) L Phosphorus Level 2.9 MG/DL (2.5-4.9) Magnesium Level 1.7 MG/DL (1.8-2.4) L Total Bilirubin 1.0 MG/DL (0.2-1.0) Aspartate Amino Transf (AST/SGOT) 489 U/L (15-37) H Alanine Aminotransferase (ALT/SGPT) 228 U/L (12-78) H Alkaline Phosphatase 49 U/L (46-116) C-Reactive Protein, Quantitative 11.6 mg/dL (0.00-0.90) H Pro-B-Type Natriuretic Peptide 901 pg/mL (0-125) H Total Protein 5.3 G/DL (6.4-8.2) L Albumin 2.0 G/DL (3.4-5.0) L Globulin 3.3 g/dL Albumin/Globulin Ratio 0.6 (1.0-2.7) L Plan Problems: (1) GIB (gastrointestinal bleeding) Assessment & Plan: 69-year-old male with acute gastrointestinal hemorrhage secondary to large duodenal ulcer. Patient had endoscopy with hemostasis just now identified a large ulcer with potential to rebleed. Need to control patient's hypertension and allow for even permissive hypotension if necessary h/h stable okay for trial feeds Will follow and be available in case patient rebleeds at which time he will require an exploration thank you for allowing me to participate in patient's care will follow with recommendations Adelso Baumann Feb 12, 2019 13:57
--- NOTE | 2019-02-12 15:15 | General Progress Note ---
Assessment/Plan Status: progressing, unchanged Assessment/Plan: Assessment - UGIB - duodenal ulcer - anemia Recommendations - clears - follow labs - PPI - elevate HOB Subjective Allergies: Coded Allergies: No Known Allergies (Unverified , 02/07/19) Subjective no further bleeding no abdominal complaints NPO Objective Last 24 Hour Vital Signs Date Time Temp Pulse Resp B/P (MAP) Pulse Ox O2 Delivery O2 Flow Rate FiO2 02/12/19 12:00 Nasal Cannula 2.0 Nasal Cannula 2.0 02/12/19 12:00 98.2 94 22 149/80 (103) 98 02/12/19 11:54 159/73 02/12/19 08:00 Nasal Cannula 2.0 Nasal Cannula 2.0 02/12/19 08:00 97.7 91 20 161/77 (105) 100 02/12/19 07:40 94 02/12/19 06:55 100 Nasal Cannula 2.0 28 02/12/19 05:40 166/82 02/12/19 04:00 Nasal Cannula 2.0 Nasal Cannula 2.0 02/12/19 04:00 97.9 88 22 155/79 (104) 100 02/12/19 04:00 89 02/12/19 00:00 Nasal Cannula 2.0 Nasal Cannula 2.0 02/12/19 00:00 103 02/12/19 00:00 98.0 90 19 157/69 (98) 99 02/11/19 23:09 157/69 02/11/19 20:00 Nasal Cannula 2.0 Nasal Cannula 2.0 02/11/19 20:00 94 Nasal Cannula 2.0 28 02/11/19 20:00 97.7 95 20 146/66 (92) 99 02/11/19 20:00 98 02/11/19 17:35 152/76 02/11/19 16:00 84 02/11/19 16:00 Nasal Cannula 2.0 Nasal Cannula 2.0 02/11/19 16:00 97.9 81 20 152/76 (101) 100 Intake and Output 02/11/19 02/12/19 19:00 07:00 Intake Total 582.5 ml 772.5 ml Output Total 745 ml Balance -162.5 ml 772.5 ml Intake Oral 0 ml IV Total 582.5 ml 772.5 ml Output Urine Total 745 ml # Bowel Movements 3 3 Laboratory Tests 02/12/19 04:00: White Blood Count 14.1H, Red Blood Count 3.56L, Hemoglobin 11.1L, Hematocrit 32.2L, Mean Corpuscular Volume 90, Mean Corpuscular Hemoglobin 31.1H, Mean Corpuscular Hemoglobin Concent 34.3, Red Cell Distribution Width 12.5, Platelet Count 224, Mean Platelet Volume 4.9L, Neutrophils (%) (Auto) 81.0H, Lymphocytes (%) (Auto) 11.3L, Monocytes (%) (Auto) 5.8, Eosinophils (%) (Auto) 1.3, Basophils (%) (Auto) 0.7, Sodium Level 140, Potassium Level 3.1L, Chloride Level 106, Carbon Dioxide Level 25, Anion Gap 9, Blood Urea Nitrogen 5L, Creatinine 0.5L, Estimat Glomerular Filtration Rate , Glucose Level 106, Calcium Level 8.0L, Phosphorus Level 2.9, Magnesium Level 1.7L, Total Bilirubin 1.0, Aspartate Amino Transf (AST/SGOT) 489H, Alanine Aminotransferase (ALT/SGPT ) 228H, Alkaline Phosphatase 49, C-Reactive Protein, Quantitative 11.6H, Pro-B- Type Natriuretic Peptide 901H, Total Protein 5.3L, Albumin 2.0L, Globulin 3.3, Albumin/Globulin Ratio 0.6L Height (Feet): 5 Height (Inches): 5.00 Weight (Pounds): 123 Objective Debilitated man NCAT supple CTA RR abd soft , flat no edema Franklyn Milan MD Feb 12, 2019 15:15
[2019-02-12] MEDS ORDERED: Sodium Phosphate 15 MM in NS 275 ML IVPB ONE (15:30)
[2019-02-12 16:00] VITALS: BP 156/74
[2019-02-12] MEDS ORDERED: D5 1/2NS 1000ml IV ONE ×2 (16:06→17:54)
[2019-02-12] MEDS ORDERED: NS 275ml ONE (16:06)
--- NOTE | 2019-02-12 19:36 | NUR ---
HAND-OFF: Report given to RAJI Boone. Patient in stable condition.
--- NOTE | 2019-02-12 19:40 | NUR ---
NURSE NOTES: Received Pt is resting on the bed and awake and alert. On O2 2L via nasal cannula. No c/o SOB. Denied pain at this time. IV site intact and no sign of infiltration noted. Dressing is clean on sacral area. Noted small amount black color stool. aware. Cleaned Pt and applied lotion and cream. Placed fall precaution. Will continue to care plan.
[2019-02-12 20:00] VITALS: BP 134/71
--- NOTE | 2019-02-12 23:41 | General Progress Note ---
Assessment/Plan Problem List: (1) ARF (acute renal failure) ICD Codes: N17.9 - Acute kidney failure, unspecified SNOMED: 74078253 Qualifiers: Qualified Codes: N17.9 - Acute kidney failure, unspecified (2) Sepsis ICD Codes: A41.9 - Sepsis, unspecified organism SNOMED: 65402227, 40455179 Qualifiers: Qualified Codes: A41.9 - Sepsis, unspecified organism; R65.20 - Severe sepsis without septic shock; N17.9 - Acute kidney failure, unspecified (3) Lactic acidosis ICD Codes: E87.2 - Acidosis SNOMED: 33367599, 95053841 (4) Anemia ICD Codes: D64.9 - Anemia, unspecified SNOMED: 735355490 (5) DKA (diabetic ketoacidoses) ICD Codes: E11.10 - Type 2 diabetes mellitus with ketoacidosis without coma SNOMED: 973901335, 71963432 Qualifiers: Qualified Codes: E13.10 - Other specified diabetes mellitus with ketoacidosis without coma (6) GIB (gastrointestinal bleeding) ICD Codes: K92.2 - Gastrointestinal hemorrhage, unspecified SNOMED: 96479528 (7) Acute respiratory failure ICD Codes: J96.00 - Acute respiratory failure, unspecified whether with hypoxia or hypercapnia SNOMED: 89114548 (8) Dehydration ICD Codes: E86.0 - Dehydration SNOMED: 21562815, 83615678 Status: progressing, unchanged Assessment/Plan: respiratory failure dka resolved no wheezing check lytes afebrile clinically improved more alert sugar is impro Subjective ROS Limited/Unobtainable: Yes HEENT: Reports: no symptoms Respiratory: Reports: no symptoms Gastrointestinal/Abdominal: Reports: no symptoms Allergies: Coded Allergies: No Known Allergies (Unverified , 02/07/19) Objective Last 24 Hour Vital Signs Date Time Temp Pulse Resp B/P (MAP) Pulse Ox O2 Delivery O2 Flow Rate FiO2 02/12/19 20:00 Nasal Cannula 2.0 Nasal Cannula 2.0 02/12/19 20:00 103 02/12/19 20:00 99.0 107 20 134/71 (92) 98 02/12/19 17:08 156/74 02/12/19 16:00 101 02/12/19 16:00 Nasal Cannula 2.0 Nasal Cannula 2.0 02/12/19 16:00 98.2 101 22 156/74 (101) 98 02/12/19 12:00 Nasal Cannula 2.0 Nasal Cannula 2.0 02/12/19 12:00 98.2 94 22 149/80 (103) 98 02/12/19 11:54 159/73 02/12/19 11:40 82 02/12/19 08:00 Nasal Cannula 2.0 Nasal Cannula 2.0 02/12/19 08:00 97.7 91 20 161/77 (105) 100 02/12/19 07:40 94 02/12/19 06:55 100 Nasal Cannula 2.0 28 02/12/19 05:40 166/82 02/12/19 04:00 Nasal Cannula 2.0 Nasal Cannula 2.0 02/12/19 04:00 97.9 88 22 155/79 (104) 100 02/12/19 04:00 89 02/12/19 00:00 Nasal Cannula 2.0 Nasal Cannula 2.0 02/12/19 00:00 103 02/12/19 00:00 98.0 90 19 157/69 (98) 99 Intake and Output 02/11/19 02/12/19 19:00 07:00 Intake Total 582.5 ml 772.5 ml Output Total 745 ml Balance -162.5 ml 772.5 ml Intake Oral 0 ml IV Total 582.5 ml 772.5 ml Output Urine Total 745 ml # Bowel Movements 3 3 Laboratory Tests 02/12/19 04:00: White Blood Count 14.1H, Red Blood Count 3.56L, Hemoglobin 11.1L, Hematocrit 32.2L, Mean Corpuscular Volume 90, Mean Corpuscular Hemoglobin 31.1H, Mean Corpuscular Hemoglobin Concent 34.3, Red Cell Distribution Width 12.5, Platelet Count 224, Mean Platelet Volume 4.9L, Neutrophils (%) (Auto) 81.0H, Lymphocytes (%) (Auto) 11.3L, Monocytes (%) (Auto) 5.8, Eosinophils (%) (Auto) 1.3, Basophils (%) (Auto) 0.7, Sodium Level 140, Potassium Level 3.1L, Chloride Level 106, Carbon Dioxide Level 25, Anion Gap 9, Blood Urea Nitrogen 5L, Creatinine 0.5L, Estimat Glomerular Filtration Rate , Glucose Level 106, Calcium Level 8.0L, Phosphorus Level 2.9, Magnesium Level 1.7L, Total Bilirubin 1.0, Aspartate Amino Transf (AST/SGOT) 489H, Alanine Aminotransferase (ALT/SGPT ) 228H, Alkaline Phosphatase 49, C-Reactive Protein, Quantitative 11.6H, Pro-B- Type Natriuretic Peptide 901H, Total Protein 5.3L, Albumin 2.0L, Globulin 3.3, Albumin/Globulin Ratio 0.6L Height (Feet): 5 Height (Inches): 5.00 Weight (Pounds): 123 Neck: supple Cardiovascular: normal rate Respiratory/Chest: lungs clear Abdomen: soft Harvey Gee MD Feb 12, 2019 23:41
[2019-02-13] VITALS (9 sets, daily range): BP systolic 138–169; BP diastolic 63–92
[2019-02-13] MEDS: Enalaprilat 1.25mg/ml Inj IV SCH ×4 (06:01→23:43)
[2019-02-13] MEDS: NovoLOG Insulin Flexpen SUBQ SCH ×4 (06:03→20:24)
--- NOTE | 2019-02-13 07:16 | General Progress Note ---
Assessment/Plan Problem List: (1) Sepsis ICD Codes: A41.9 - Sepsis, unspecified organism SNOMED: 83368216, 98856886 Qualifiers: Qualified Codes: A41.9 - Sepsis, unspecified organism; R65.20 - Severe sepsis without septic shock; N17.9 - Acute kidney failure, unspecified (2) Sinus tachycardia ICD Codes: R00.0 - Tachycardia, unspecified SNOMED: 08200473 (3) ARF (acute renal failure) ICD Codes: N17.9 - Acute kidney failure, unspecified SNOMED: 53211595 Qualifiers: Qualified Codes: N17.9 - Acute kidney failure, unspecified (4) Lactic acidosis ICD Codes: E87.2 - Acidosis SNOMED: 24555639, 05354666 (5) Esophageal varices ICD Codes: I85.00 - Esophageal varices without bleeding SNOMED: 93029451 Status: progressing, unchanged Assessment/Plan: no need for basal insulin for now continue Novolog sliding scale Subjective ROS Limited/Unobtainable: Yes Allergies: Coded Allergies: No Known Allergies (Unverified , 02/07/19) Subjective events noted glucose values are stable Item Value Date Time Bedside Blood Glucose 130 mg/dl H 02/13/19 0603 Bedside Blood Glucose 121 mg/dl H 02/13/19 0000 Bedside Blood Glucose 129 mg/dl H 02/12/19 1802 Bedside Blood Glucose 87 mg/dl 02/12/19 1200 Bedside Blood Glucose 97 mg/dl 02/12/19 0600 Bedside Blood Glucose 90 mg/dl 02/12/19 0000 Objective Last 24 Hour Vital Signs Date Time Temp Pulse Resp B/P (MAP) Pulse Ox O2 Delivery O2 Flow Rate FiO2 02/13/19 06:01 148/69 02/13/19 04:00 105 02/13/19 04:00 98.4 105 20 148/69 (95) 98 02/13/19 04:00 Nasal Cannula 2.0 Nasal Cannula 2.0 02/13/19 00:00 99.0 110 20 138/92 (107) 98 02/13/19 00:00 Nasal Cannula 2.0 Nasal Cannula 2.0 02/13/19 00:00 106 02/12/19 23:49 138/92 02/12/19 20:00 Nasal Cannula 2.0 Nasal Cannula 2.0 02/12/19 20:00 103 02/12/19 20:00 99.0 107 20 134/71 (92) 98 02/12/19 19:21 97 Nasal Cannula 2.0 28 02/12/19 17:08 156/74 02/12/19 16:00 101 02/12/19 16:00 Nasal Cannula 2.0 Nasal Cannula 2.0 02/12/19 16:00 98.2 101 22 156/74 (101) 98 02/12/19 12:00 Nasal Cannula 2.0 Nasal Cannula 2.0 02/12/19 12:00 98.2 94 22 149/80 (103) 98 02/12/19 11:54 159/73 02/12/19 11:40 82 02/12/19 08:00 Nasal Cannula 2.0 Nasal Cannula 2.0 02/12/19 08:00 97.7 91 20 161/77 (105) 100 02/12/19 07:40 94 Intake and Output 02/12/19 02/13/19 19:00 07:00 Intake Total 1663.5 ml 707 ml Output Total 50 ml 900 ml Balance 1613.5 ml -193 ml Intake Oral 300 ml 120 ml IV Total 1363.5 ml 587 ml Output Urine Total 50 ml 900 ml # Bowel Movements 3 6 Height (Feet): 5 Height (Inches): 5.00 Weight (Pounds): 153 General Appearance: no apparent distress Neck: normal alignment Cardiovascular: normal rate Respiratory/Chest: decreased breath sounds Abdomen: normal bowel sounds Objective Current Medications Medications (Trade) Dose Ordered Sig/Manish Route PRN Reason Start Time Stop Time Status Last Admin Dose Admin Acetaminophen (Tylenol) 650 mg Q6H PRN ORAL Mild Pain/Temp > 100.5 02/11/19 13:00 03/10/19 12:59 Clotrimazole (Lotrimin) 1 applic THREE TIMES A DAY TOPIC 02/11/19 13:00 03/10/19 17:59 02/12/19 17:08 Dextrose (Dextrose 50%) 25 ml Q30M PRN IV Hypoglycemia 02/11/19 13:00 03/10/19 08:59 Dextrose (Dextrose 50%) 50 ml Q30M PRN IV Hypoglycemia 02/11/19 13:00 03/10/19 08:59 Dextrose/Sodium Chloride 1,000 ml @ 50 mls/hr Q20H IV 8/25/19 12:45 03/10/19 19:14 02/12/19 12:15 Enalaprilat (Vasotec) 2.5 mg Q6HR IV 02/11/19 18:00 03/13/19 17:59 02/13/19 06:01 Insulin Aspart (NovoLOG) AC+HS SUBQ 02/13/19 11:30 03/10/19 11:59 Labetalol HCl (Normodyne) 20 mg Q4H PRN IV SBP>150 02/11/19 13:30 03/10/19 13:21 Lorazepam (Ativan 2mg/ml 1ml) 1 mg Q4H PRN IV For Anxiety 02/11/19 13:00 02/15/19 12:59 Pantoprazole (Protonix) 40 mg EVERY 12 HOURS IVP 02/11/19 21:00 03/13/19 20:59 02/12/19 20:57 Thiamine HCl 100 mg/Dextrose 56 ml @ 112 mls/hr Q24H IVPB 02/12/19 13:00 03/14/19 12:59 02/12/19 12:55 Jt Wellington MD Feb 13, 2019 07:16
--- NOTE | 2019-02-13 07:29 | NUR ---
HAND-OFF: Report given to RAJI Prather. Pt is resting on the bed and no sing of acute distress noted.
--- NOTE | 2019-02-13 07:30 | NUR ---
NURSE NOTES: Received report from Jluis Lyle RN. Patient alert and oriented x 4, able to make needs known. Receiving O2 via nasal cannula @ 2L/min, respirations even and unlabored. Condom catheter in place and draining well. Left hand 22g IV site infusing D51/2NS @ 50 cc/hr, asymptomatic. Right hand 22g saline lock intact and asymptomatic. Bed locked in lowest position with side rails up x 3. All needs attended to. Call light within reach. Will continue to monitor.
[2019-02-13] MEDS: Pantoprazole Inj IVP SCH ×2 (09:05→20:25)
[2019-02-13] MEDS: D5 1/2NS 1,000 ML IV SCH (09:05)
--- NOTE | 2019-02-13 10:44 | General Progress Note ---
Assessment/Plan Problem List: (1) GIB (gastrointestinal bleeding) ICD Codes: K92.2 - Gastrointestinal hemorrhage, unspecified SNOMED: 36599691 Status: progressing, unchanged Assessment/Plan: stable H&H advance to full liquid cont protonix fu biopsy results Subjective ROS Limited/Unobtainable: Yes Allergies: Coded Allergies: No Known Allergies (Unverified , 02/07/19) Objective Last 24 Hour Vital Signs Date Time Temp Pulse Resp B/P (MAP) Pulse Ox O2 Delivery O2 Flow Rate FiO2 02/13/19 08:00 97.7 107 20 140/69 (92) 97 02/13/19 06:01 148/69 02/13/19 04:00 105 02/13/19 04:00 98.4 105 20 148/69 (95) 98 02/13/19 04:00 Nasal Cannula 2.0 Nasal Cannula 2.0 02/13/19 00:00 99.0 110 20 138/92 (107) 98 02/13/19 00:00 Nasal Cannula 2.0 Nasal Cannula 2.0 02/13/19 00:00 106 02/12/19 23:49 138/92 02/12/19 20:00 Nasal Cannula 2.0 Nasal Cannula 2.0 02/12/19 20:00 103 02/12/19 20:00 99.0 107 20 134/71 (92) 98 02/12/19 19:21 97 Nasal Cannula 2.0 28 02/12/19 17:08 156/74 02/12/19 16:00 101 02/12/19 16:00 Nasal Cannula 2.0 Nasal Cannula 2.0 02/12/19 16:00 98.2 101 22 156/74 (101) 98 02/12/19 12:00 Nasal Cannula 2.0 Nasal Cannula 2.0 02/12/19 12:00 98.2 94 22 149/80 (103) 98 02/12/19 11:54 159/73 02/12/19 11:40 82 Intake and Output 02/12/19 02/13/19 19:00 07:00 Intake Total 1663.5 ml 757 ml Output Total 50 ml 900 ml Balance 1613.5 ml -143 ml Intake Oral 300 ml 120 ml IV Total 1363.5 ml 637 ml Output Urine Total 50 ml 900 ml # Bowel Movements 3 6 Height (Feet): 5 Height (Inches): 5.00 Weight (Pounds): 153 General Appearance: no apparent distress EENT: PERRL/EOMI Neck: supple Cardiovascular: normal rate Respiratory/Chest: decreased breath sounds Abdomen: normal bowel sounds, non tender, soft Extremities: non-tender Kj Conn MD Feb 13, 2019 10:44
[2019-02-13] MEDS ORDERED: D5 1/2NS 1000ml IV ONE (11:00)
--- NOTE | 2019-02-13 11:59 | NUR ---
CASE MANAGEMENT: REVIEW 02/11/2019 SI:DKA. GIB. T 97.7 HR 95 RR 20 B/P 146/66 SATS 94% ON 2L/NC WBC 13.2 K 2.9 CL 109 BUN 5 CR 0.5 GLU 109 CA 7.8 IS:PROTONIX IV @ 25mL/HR IVF @ 40 mL/HR VASOTEC IV Q6H ZOSYN IV Q8H SODIUM PHOS IV X1 THIAMINE IV Q24H FENTANYL IV Q24H SDU 02/12/2019 SI:DKA. GIB. T 97.9 HR 88 RR 22 B/P 155/79 SATS 100% ON 2L/NC WBC 14.1 K 3.1 BUN 5 CR 0.5 CA8 MG 1.7 AST 489 ALT 228 IS:PROTONIX IV @ 25mL/HR IVF @ 40 mL/HR VASOTEC IV Q6H ZOSYN IV Q8H SODIUM PHOS IV X1 THIAMINE IV Q24H FENTANYL IV Q24H SDU 02/13/2019 SI:DKA. GIB. T 97.7 HR 107 RR 20 B/P 140/69 SATS 97% ON 2L/NC NO LABS TODAY IS:PROTONIX IV Q12H VASOTEC IV Q6H ZOSYN IV Q8H THIAMINE IV Q24H SDU
--- NOTE | 2019-02-13 12:13 | NUR ---
Social Service Note SW and CM Coordinator met with patient. CM Coordinator provided [place]i translation. Patient is originally from [place] and is non-documented. Patient [place] [address] [place] [address] with his girlfriend Erica Carrington. Patient doesn't know her phone number. SW located patient's phone. Patient doesn't have a contact list. SW called the three numbers that appeared called [phone] (check cashing), , no answer unable to leave a message and [phone] left a message. Patient denies being homeless. Patient states he will return to the address provided on discharge. Patient with no insurance. [facility] will screen patient. [facility] will be restricted due to patient's immigration status. PT to continue to work with patient to increase mobility as SNF placement is not an option. KELLY contacted missing person's [phone], patient is not list as missing. 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 WILL monitor.
--- NOTE | 2019-02-13 12:17 | Infectious Diseases Prog Note ---
Assessment/Plan Assessment/Plan IMPRESSION: Sepsis, systemic inflammatory response syndrome, Leukocytosis GI bleeding Duodenal ulcer. Uncontrolled DM Lactic acidosis, Acute renal failure improving. Onychomycosis and tinea pedis, anemia, received blood transfusion, Elevated transaminase level. Acute respiratory failure resolved RECOMMENDATION: continue topical clotrimazole Subjective ROS Limited/Unobtainable: Yes Respiratory: Reports: no symptoms Gastrointestinal/Abdominal: Reports: no symptoms Allergies: Coded Allergies: No Known Allergies (Unverified , 02/07/19) Objective Vital Signs Last 24 Hour Vital Signs Date Time Temp Pulse Resp B/P (MAP) Pulse Ox O2 Delivery O2 Flow Rate FiO2 02/13/19 11:41 151/87 02/13/19 08:00 Nasal Cannula 2.0 02/13/19 08:00 97.7 107 20 140/69 (92) 97 02/13/19 07:50 111 02/13/19 06:01 148/69 02/13/19 04:00 105 02/13/19 04:00 98.4 105 20 148/69 (95) 98 02/13/19 04:00 Nasal Cannula 2.0 Nasal Cannula 2.0 02/13/19 00:00 99.0 110 20 138/92 (107) 98 02/13/19 00:00 Nasal Cannula 2.0 Nasal Cannula 2.0 02/13/19 00:00 106 02/12/19 23:49 138/92 02/12/19 20:00 Nasal Cannula 2.0 Nasal Cannula 2.0 02/12/19 20:00 103 02/12/19 20:00 99.0 107 20 134/71 (92) 98 02/12/19 19:21 97 Nasal Cannula 2.0 28 02/12/19 17:08 156/74 02/12/19 16:00 101 02/12/19 16:00 Nasal Cannula 2.0 Nasal Cannula 2.0 02/12/19 16:00 98.2 101 22 156/74 (101) 98 Height (Feet): 5 Height (Inches): 5.00 Weight (Pounds): 153 General Appearance: no acute distress HEENT: mucous membranes moist Respiratory/Chest: lungs clear Cardiovascular: tachycardia Abdomen: soft, non tender Extremities: no edema Skin: no rash Neurologic/Psychiatric: alert, responsive Musculoskeletal: atrophy Current Medications Medications (Trade) Dose Ordered Sig/Manish Route PRN Reason Start Time Stop Time Status Last Admin Dose Admin Acetaminophen (Tylenol) 650 mg Q6H PRN ORAL Mild Pain/Temp > 100.5 02/11/19 13:00 03/10/19 12:59 Clotrimazole (Lotrimin) 1 applic THREE TIMES A DAY TOPIC 02/11/19 13:00 03/10/19 17:59 02/13/19 09:06 Dextrose (Dextrose 50%) 25 ml Q30M PRN IV Hypoglycemia 02/11/19 13:00 03/10/19 08:59 Dextrose (Dextrose 50%) 50 ml Q30M PRN IV Hypoglycemia 02/11/19 13:00 03/10/19 08:59 Dextrose/Sodium Chloride 1,000 ml @ 50 mls/hr Q20H IV 02/12/19 12:45 03/10/19 19:14 02/13/19 09:05 Enalaprilat (Vasotec) 2.5 mg Q6HR IV 02/11/19 18:00 03/13/19 17:59 02/13/19 11:41 Insulin Aspart (NovoLOG) AC+HS SUBQ 02/13/19 11:30 03/10/19 11:59 02/13/19 11:53 Labetalol HCl (Normodyne) 20 mg Q4H PRN IV SBP>150 02/11/19 13:30 03/10/19 13:21 Lorazepam (Ativan 2mg/ml 1ml) 1 mg Q4H PRN IV For Anxiety 02/11/19 13:00 02/15/19 12:59 Pantoprazole (Protonix) 40 mg EVERY 12 HOURS IVP 02/11/19 21:00 03/13/19 20:59 02/13/19 09:05 Thiamine HCl 100 mg/Dextrose 56 ml @ 112 mls/hr Q24H IVPB 02/12/19 13:00 03/14/19 12:59 02/12/19 12:55 Fazal Basilio MD Feb 13, 2019 12:17
--- NOTE | 2019-02-13 12:20 | NUR ---
RD ASSESSMENT & RECOMMENDATIONS SEE CARE ACTIVITY FOR COMPLETE ASSESSMENT DAILY ESTIMATED NEEDS: Needs based on Critical care, DKA/ 56kg 22-28 kcals/kg 5100-2692 total kcals 1.2-2 g protein/kg 67-112 g total protein 25-30 mL/kg 5193-5151 total fluid mLs NUTRITION DIAGNOSIS: Altered GI function R/T GIB as evidenced by s/p EGD w/ finding of large duodenal ulcer, now extubated, diet advanced to full liquid diet. CURRENT DIET:CLD -> FLD PO DIET RECOMMENDATIONS: Advance diet per MD -> BLAND diet ADDITIONAL RECOMMENDATIONS: * Calibrated bedscale wt for accurate CBW -> w/ p200 mattress, SCD's * Wound healing: add MVI x 1, Vit C 250mg QD * Monitor BGs closely- improved at this time * Monitor PO tolerance closely * Monitor lytes, replete as needed (low K, low mag)
[2019-02-13] MEDS: Thiamine HCl 100 MG in D5W 55 ML IVPB SCH (13:56)
--- NOTE | 2019-02-13 15:09 | Nephrology Progress Note ---
Assessment/Plan Problem List: (1) ARF (acute renal failure) (2) Dehydration (3) Acute respiratory failure (4) Esophageal varices (5) GIB (gastrointestinal bleeding) Assessment Acute renal failure , Cr lower now intubated Dehydration Hyperglycemia high Lactate level esophageal bleed GI bleed . Plan K and Phos and mag supplement as needed Hydrate- per GI- Monitor lytes and renal parameters protonix Thiamin Weaning as possible Subjective ROS Limited/Unobtainable: No Objective Objective Last 24 Hour Vital Signs Date Time Temp Pulse Resp B/P (MAP) Pulse Ox O2 Delivery O2 Flow Rate FiO2 02/13/19 12:00 Nasal Cannula 2.0 02/13/19 12:00 98.1 112 20 151/87 (108) 95 02/13/19 11:41 151/87 02/13/19 08:00 Nasal Cannula 2.0 02/13/19 08:00 97.7 107 20 140/69 (92) 97 02/13/19 07:57 98 Nasal Cannula 2.0 28 02/13/19 07:50 111 02/13/19 06:01 148/69 02/13/19 04:00 105 02/13/19 04:00 98.4 105 20 148/69 (95) 98 02/13/19 04:00 Nasal Cannula 2.0 Nasal Cannula 2.0 02/13/19 00:00 99.0 110 20 138/92 (107) 98 02/13/19 00:00 Nasal Cannula 2.0 Nasal Cannula 2.0 02/13/19 00:00 106 02/12/19 23:49 138/92 02/12/19 20:00 Nasal Cannula 2.0 Nasal Cannula 2.0 02/12/19 20:00 103 02/12/19 20:00 99.0 107 20 134/71 (92) 98 02/12/19 19:21 97 Nasal Cannula 2.0 28 02/12/19 17:08 156/74 02/12/19 16:00 101 02/12/19 16:00 Nasal Cannula 2.0 Nasal Cannula 2.0 02/12/19 16:00 98.2 101 22 156/74 (101) 98 Intake and Output 02/12/19 02/13/19 19:00 07:00 Intake Total 1663.5 ml 757 ml Output Total 50 ml 900 ml Balance 1613.5 ml -143 ml Intake Oral 300 ml 120 ml IV Total 1363.5 ml 637 ml Output Urine Total 50 ml 900 ml # Bowel Movements 3 6 Height (Feet): 5 Height (Inches): 5.00 Weight (Pounds): 153 General Appearance: no apparent distress Neck: limited range of motion Cardiovascular: tachycardia Respiratory/Chest: decreased breath sounds Abdomen: distended Objective no change Arturo Cruz MD Feb 13, 2019 15:09
--- NOTE | 2019-02-13 15:09 | Surgery Progress Note ---
Surgery Progress Note Subjective Additional Comments no acute events comfortable stable labs okay eaxm unchanged. Objective Last 24 Hour Vital Signs Date Time Temp Pulse Resp B/P (MAP) Pulse Ox O2 Delivery O2 Flow Rate FiO2 02/13/19 12:00 Nasal Cannula 2.0 02/13/19 12:00 98.1 112 20 151/87 (108) 95 02/13/19 11:41 151/87 02/13/19 08:00 Nasal Cannula 2.0 02/13/19 08:00 97.7 107 20 140/69 (92) 97 02/13/19 07:57 98 Nasal Cannula 2.0 28 02/13/19 07:50 111 02/13/19 06:01 148/69 02/13/19 04:00 105 02/13/19 04:00 98.4 105 20 148/69 (95) 98 02/13/19 04:00 Nasal Cannula 2.0 Nasal Cannula 2.0 02/13/19 00:00 99.0 110 20 138/92 (107) 98 02/13/19 00:00 Nasal Cannula 2.0 Nasal Cannula 2.0 02/13/19 00:00 106 02/12/19 23:49 138/92 02/12/19 20:00 Nasal Cannula 2.0 Nasal Cannula 2.0 02/12/19 20:00 103 02/12/19 20:00 99.0 107 20 134/71 (92) 98 02/12/19 19:21 97 Nasal Cannula 2.0 28 02/12/19 17:08 156/74 02/12/19 16:00 101 02/12/19 16:00 Nasal Cannula 2.0 Nasal Cannula 2.0 02/12/19 16:00 98.2 101 22 156/74 (101) 98 I&O Intake and Output 02/12/19 02/13/19 19:00 07:00 Intake Total 1663.5 ml 757 ml Output Total 50 ml 900 ml Balance 1613.5 ml -143 ml Intake Oral 300 ml 120 ml IV Total 1363.5 ml 637 ml Output Urine Total 50 ml 900 ml # Bowel Movements 3 6 Cardiovascular: RSR Respiratory: clear Abdomen: soft, distended, non-tender, present bowel sounds Extremities: no cyanosis Plan Problems: (1) GIB (gastrointestinal bleeding) Assessment & Plan: 69-year-old male with acute gastrointestinal hemorrhage secondary to large duodenal ulcer. Patient had endoscopy with hemostasis just now identified a large ulcer with potential to rebleed. Need to control patient's hypertension and allow for even permissive hypotension if necessary h/h stable okay for trial feeds Will follow and be available in case patient rebleeds at which time he will require an exploration thank you for allowing me to participate in patient's care will follow with recommendations Adelso Baumann Feb 13, 2019 15:09
--- NOTE | 2019-02-13 15:34 | Hematology/Onc Progress Note ---
Assessment/Plan Assessment/Plan # Anemia due to underlying gi bleed, sp egd which showed duodenal ulceration, failed hemostasis --> surgery eval as needed, prn --> continue ppi --> coags slightly elevated, nsider vit K if persistent bleeding --> transfuse if hgb <7 --> no indication for surgery --> trend hgb 13-->11.1-->11 # Leukocytosis with Sepsis, systemic inflammatory response syndrome --> monitor for improvement --> is on abx, zosyn per id --> per id recs --> wbc 16--.14-->14 # DKA with Uncontrolled DM --> on insulin sliding scale # Lactic acidosis, --> trend as needed, on ivf, thiamine, folate # Acute renal failure improving. --> sp fluids # Onychomycosis and tinea pedis, --> podiatry consulted # Elevated transaminase level due to etoh use --> trend as needed # Acute respiratory failure --> now extubated, breathing better --> on 2l NC The timing of this note does not necessarily reflect the time of the patient was seen. GREATLY APPRECIATE CONSULTATION. Subjective Constitutional: Denies: no symptoms, chills, fever, malaise, weakness, other HEENT: Denies: no symptoms, eye pain, blurred vision, tearing, double vision, ear pain, ear discharge, nose pain, nose congestion, throat pain, throat swelling, mouth pain, mouth swelling, other Respiratory: Denies: no symptoms, cough, shortness of breath, SOB with excertion, SOB at rest, sputum, wheezing, other Gastrointestinal/Abdominal: Denies: no symptoms, abdomen distended, abdominal pain, black stools, tarry stools, blood in stool, constipated, diarrhea, difficulty swallowing, nausea, poor appetite, poor fluid intake, rectal bleeding , vomiting, other Genitourinary: Denies: no symptoms, burning, discharge, frequency, flank pain, hematuria, incontinence, pain, urgency, other Neurologic/Psychiatric: Denies: no symptoms, anxiety, depressed, emotional problems, headache, numbness, paresthesia, pre-existing deficit, seizure, tingling, tremors, weakness, other Endocrine: Denies: no symptoms, excessive sweating, flushing, intolerance to cold, intolerance to heat, increased hunger, increased thirst, increased urine, unexplained weight gain, unexplained weight loss, other Allergies: Coded Allergies: No Known Allergies (Unverified , 02/07/19) Subjective 02/09: remains intubated, on vent, able to respond, in lao, to commands weaning today, h/h reviewed 02/10: icu, extubated, labs reviewed 02/12: on 2l nc, h/h reviewed, no bleeding in sdu 02/13: on nc, no events, no blding, a+o x4 Objective Objective Current Medications Medications (Trade) Dose Ordered Sig/Manish Route PRN Reason Start Time Stop Time Status Last Admin Dose Admin Acetaminophen (Tylenol) 650 mg Q6H PRN ORAL Mild Pain/Temp > 100.5 02/11/19 13:00 03/10/19 12:59 Clotrimazole (Lotrimin) 1 applic THREE TIMES A DAY TOPIC 02/11/19 13:00 03/10/19 17:59 02/13/19 13:26 Dextrose (Dextrose 50%) 25 ml Q30M PRN IV Hypoglycemia 02/11/19 13:00 03/10/19 08:59 Dextrose (Dextrose 50%) 50 ml Q30M PRN IV Hypoglycemia 02/11/19 13:00 03/10/19 08:59 Dextrose/Sodium Chloride 1,000 ml @ 50 mls/hr Q20H IV 02/12/19 12:45 03/10/19 19:14 02/13/19 09:05 Enalaprilat (Vasotec) 2.5 mg Q6HR IV 02/11/19 18:00 03/13/19 17:59 02/13/19 11:41 Insulin Aspart (NovoLOG) AC+HS SUBQ 02/13/19 11:30 03/10/19 11:59 02/13/19 11:53 Labetalol HCl (Normodyne) 20 mg Q4H PRN IV SBP>150 02/11/19 13:30 03/10/19 13:21 Lorazepam (Ativan 2mg/ml 1ml) 1 mg Q4H PRN IV For Anxiety 02/11/19 13:00 02/15/19 12:59 Pantoprazole (Protonix) 40 mg EVERY 12 HOURS IVP 02/11/19 21:00 03/13/19 20:59 02/13/19 09:05 Thiamine HCl 100 mg/Dextrose 56 ml @ 112 mls/hr Q24H IVPB 02/12/19 13:00 03/14/19 12:59 02/13/19 13:56 Last 24 Hour Vital Signs Date Time Temp Pulse Resp B/P (MAP) Pulse Ox O2 Delivery O2 Flow Rate FiO2 02/13/19 12:05 100 02/13/19 12:00 Nasal Cannula 2.0 02/13/19 12:00 98.1 112 20 151/87 (108) 95 02/13/19 11:41 151/87 02/13/19 08:00 Nasal Cannula 2.0 02/13/19 08:00 97.7 107 20 140/69 (92) 97 02/13/19 07:57 98 Nasal Cannula 2.0 28 02/13/19 07:50 111 02/13/19 06:01 148/69 02/13/19 04:00 105 02/13/19 04:00 98.4 105 20 148/69 (95) 98 02/13/19 04:00 Nasal Cannula 2.0 Nasal Cannula 2.0 02/13/19 00:00 99.0 110 20 138/92 (107) 98 02/13/19 00:00 Nasal Cannula 2.0 Nasal Cannula 2.0 02/13/19 00:00 106 02/12/19 23:49 138/92 02/12/19 20:00 Nasal Cannula 2.0 Nasal Cannula 2.0 02/12/19 20:00 103 02/12/19 20:00 99.0 107 20 134/71 (92) 98 02/12/19 19:21 97 Nasal Cannula 2.0 28 02/12/19 17:08 156/74 02/12/19 16:00 101 02/12/19 16:00 Nasal Cannula 2.0 Nasal Cannula 2.0 02/12/19 16:00 98.2 101 22 156/74 (101) 98 02/12/19 12:00 Nasal Cannula 2.0 Nasal Cannula 2.0 02/12/19 12:00 98.2 94 22 149/80 (103) 98 02/12/19 11:54 159/73 02/12/19 11:40 82 02/12/19 08:00 Nasal Cannula 2.0 Nasal Cannula 2.0 02/12/19 08:00 97.7 91 20 161/77 (105) 100 02/12/19 07:40 94 02/12/19 06:55 100 Nasal Cannula 2.0 28 02/12/19 05:40 166/82 02/12/19 04:00 Nasal Cannula 2.0 Nasal Cannula 2.0 02/12/19 04:00 97.9 88 22 155/79 (104) 100 02/12/19 04:00 89 02/12/19 00:00 Nasal Cannula 2.0 Nasal Cannula 2.0 02/12/19 00:00 103 02/12/19 00:00 98.0 90 19 157/69 (98) 99 02/11/19 23:09 157/69 02/11/19 20:00 Nasal Cannula 2.0 Nasal Cannula 2.0 02/11/19 20:00 94 Nasal Cannula 2.0 28 02/11/19 20:00 97.7 95 20 146/66 (92) 99 02/11/19 20:00 98 02/11/19 17:35 152/76 02/11/19 16:00 84 02/11/19 16:00 Nasal Cannula 2.0 Nasal Cannula 2.0 02/11/19 16:00 97.9 81 20 152/76 (101) 100 Intake and Output 02/12/19 02/13/19 19:00 07:00 Intake Total 1663.5 ml 757 ml Output Total 50 ml 900 ml Balance 1613.5 ml -143 ml Intake Oral 300 ml 120 ml IV Total 1363.5 ml 637 ml Output Urine Total 50 ml 900 ml # Bowel Movements 3 6 Labs Test 02/11/19 06:10 02/12/19 04:00 White Blood Count 13.2 K/UL (4.8-10.8) 14.1 K/UL (4.8-10.8) Red Blood Count 3.68 M/UL (4.70-6.10) 3.56 M/UL (4.70-6.10) Hemoglobin 11.4 G/DL (14.2-18.0) 11.1 G/DL (14.2-18.0) Hematocrit 33.5 % (42.0-52.0) 32.2 % (42.0-52.0) Mean Corpuscular Volume 91 FL (80-99) 90 FL (80-99) Mean Corpuscular Hemoglobin 31.1 PG (27.0-31.0) 31.1 PG (27.0-31.0) Mean Corpuscular Hemoglobin Concent 34.2 G/DL (32.0-36.0) 34.3 G/DL (32.0-36.0) Red Cell Distribution Width 12.8 % (11.6-14.8) 12.5 % (11.6-14.8) Platelet Count 200 K/UL (150-450) 224 K/UL (150-450) Mean Platelet Volume 5.0 FL (6.5-10.1) 4.9 FL (6.5-10.1) Neutrophils (%) (Auto) 80.9 % (45.0-75.0) 81.0 % (45.0-75.0) Lymphocytes (%) (Auto) 12.2 % (20.0-45.0) 11.3 % (20.0-45.0) Monocytes (%) (Auto) 5.7 % (1.0-10.0) 5.8 % (1.0-10.0) Eosinophils (%) (Auto) 0.7 % (0.0-3.0) 1.3 % (0.0-3.0) Basophils (%) (Auto) 0.5 % (0.0-2.0) 0.7 % (0.0-2.0) Sodium Level 143 MMOL/L (136-145) 140 MMOL/L (136-145) Potassium Level 2.9 MMOL/L (3.5-5.1) 3.1 MMOL/L (3.5-5.1) Chloride Level 109 MMOL/L (98-107) 106 MMOL/L (98-107) Carbon Dioxide Level 26 MMOL/L (21-32) 25 MMOL/L (21-32) Anion Gap 8 mmol/L (5-15) 9 mmol/L (5-15) Blood Urea Nitrogen 5 mg/dL (7-18) 5 mg/dL (7-18) Creatinine 0.5 MG/DL (0.55-1.30) 0.5 MG/DL (0.55-1.30) Estimat Glomerular Filtration Rate mL/min (>60) mL/min (>60) Glucose Level 109 MG/DL (74-106) 106 MG/DL (74-106) Calcium Level 7.8 MG/DL (8.5-10.1) 8.0 MG/DL (8.5-10.1) Phosphorus Level 3.0 MG/DL (2.5-4.9) 2.9 MG/DL (2.5-4.9) Magnesium Level 1.7 MG/DL (1.8-2.4) Total Bilirubin 1.0 MG/DL (0.2-1.0) Aspartate Amino Transf (AST/SGOT) 489 U/L (15-37) Alanine Aminotransferase (ALT/SGPT) 228 U/L (12-78) Alkaline Phosphatase 49 U/L (46-116) C-Reactive Protein, Quantitative 11.6 mg/dL (0.00-0.90) Pro-B-Type Natriuretic Peptide 901 pg/mL (0-125) Total Protein 5.3 G/DL (6.4-8.2) Albumin 2.0 G/DL (3.4-5.0) Globulin 3.3 g/dL Albumin/Globulin Ratio 0.6 (1.0-2.7) Height (Feet): 5 Height (Inches): 5.00 Weight (Pounds): 153 Objective General Appearance: no acute distress HEENT: mucous membranes moist Respiratory/Chest: lungs clear, 2l nc Cardiovascular: normal rate Abdomen: soft, non tender Extremities: no edema Neurologic/Psychiatric: alert, responsive Hal Smith MD Feb 13, 2019 15:34
--- NOTE | 2019-02-13 15:36 | Cardiac Electrophysiology PN ---
Assessment/Plan Assessment/Plan 1. Sinus tachycardia due to diabetic ketoacidosis and acute GI bleed. No evidence of atrial fibrillation or atrial flutter or any SVT. EF 60%. In NSR 2. S/P Respiratory failure, Extubated 3. Acute GI bleed, status post endoscopy by Dr. Conn that showed duodenal ulcer. Biopsy was performed. Patient received 4 units of blood transfusion. The patient had large duodenal bulb ulcer with hemorrhage .Stable now. No indication for surgery at this time per Dr. Baumann 4. Diabetic ketoacidosis, on insulin drip. 5. Accelerated hypertension. On IV hydralazine. PRASHANTH RN Subjective Subjective alert in NAd transferred out to SDU Objective Last 24 Hour Vital Signs Date Time Temp Pulse Resp B/P (MAP) Pulse Ox O2 Delivery O2 Flow Rate FiO2 02/13/19 12:05 100 02/13/19 12:00 Nasal Cannula 2.0 02/13/19 12:00 98.1 112 20 151/87 (108) 95 02/13/19 11:41 151/87 02/13/19 08:00 Nasal Cannula 2.0 02/13/19 08:00 97.7 107 20 140/69 (92) 97 02/13/19 07:57 98 Nasal Cannula 2.0 28 02/13/19 07:50 111 02/13/19 06:01 148/69 02/13/19 04:00 105 02/13/19 04:00 98.4 105 20 148/69 (95) 98 02/13/19 04:00 Nasal Cannula 2.0 Nasal Cannula 2.0 02/13/19 00:00 99.0 110 20 138/92 (107) 98 02/13/19 00:00 Nasal Cannula 2.0 Nasal Cannula 2.0 02/13/19 00:00 106 02/12/19 23:49 138/92 02/12/19 20:00 Nasal Cannula 2.0 Nasal Cannula 2.0 02/12/19 20:00 103 02/12/19 20:00 99.0 107 20 134/71 (92) 98 02/12/19 19:21 97 Nasal Cannula 2.0 28 02/12/19 17:08 156/74 02/12/19 16:00 101 02/12/19 16:00 Nasal Cannula 2.0 Nasal Cannula 2.0 02/12/19 16:00 98.2 101 22 156/74 (101) 98 Intake and Output 02/12/19 02/13/19 19:00 07:00 Intake Total 1663.5 ml 757 ml Output Total 50 ml 900 ml Balance 1613.5 ml -143 ml Intake Oral 300 ml 120 ml IV Total 1363.5 ml 637 ml Output Urine Total 50 ml 900 ml # Bowel Movements 3 6 Objective HEAD AND NECK: No JVD. LUNGS: Decreased breath sounds. CARDIOVASCULAR: Tachycardic. S1 and S2 with no gallop. ABDOMEN: Soft. EXTREMITIES: No pitting edema. Very poor feet hygiene. Matthew Kent MD Feb 13, 2019 15:36
--- NOTE | 2019-02-13 19:03 | NUR ---
HAND-OFF: Report given to Arsenio Howard RN.
--- NOTE | 2019-02-13 19:15 | NUR ---
NURSE NOTES: Received report form Yamilka ALEGRIA, pt. in bed awake, A/O x's 4- [place]er speaker- able to make needs known, no signs or symptoms of acute cardiac or respiratory distress noted, bed in lowest position and call light within easy reach, bed alarm on, side rails up x's3 and safety brakes engaged, pt. appears to be sating well on 2L NC at 98%- no distress noted, condom cath intact and draining to gravity, left and right hand both IVs intact and patent 22G running D51/2 NS @50cc/hr, safety measures continued, will continue with plan of care.
--- NOTE | 2019-02-13 21:14 | Pulmonolgy Critical Care Note ---
Critical Care - Asmt/Plan Assessment/Plan: Pulmonary CCM Progress Note HPI Patient is a 69-year-old male admitted with generalized weakness, altered mental status. He was at a bus stop when a friend called 911. Noted to have hemodynamically significant Gastrointestinal Bleed in the ED, Evidence of Sigmoid/Rectal thickening on CT abdomen, Urinary Tract Infection. Had significantly elevated Lactic Acid and Glucose Level (minimal Ketones in urine) , abnormal renal function. No history of trauma noted. No complaint of pain or shortness of breath. Improved condition, in SDU No complaints Allergies: No Known Allergies Past Medical History: Diabetes All Other Systems: limited - Secondary to patient's condition Physical Exam Vital Signs Noted General Appearance: awake Head: normocephalic, atraumatic Eyes: bilateral eye PERRL, bilateral eye EOMI ENT: normal pharynx, moist mucus membranes Neck: no LN Respiratory: chest non-tender, lungs clear, normal breath sounds Cardiovascular: regular rate, rhythm, no murmur, HS1, HS2 normal Gastrointestinal: normal bowel sounds, non tender, no mass, no organomegaly, no bruit, non-distended Musculoskeletal: back normal, normal range of motion Neurologic: rossly normal, no focal signs, no seizures Impression: Gastrointestinal bleed Anemia Possible Mesenteric Ischemia given degree of acidosis, possible Colitis given CT findings Sepsis Urinary Tract Infection Hypovolemia Acute kidney failure Lactic acidosis Diabetes ARF (acute renal failure) Plan NC O2 PRN CPT, HHN IVF PRN Diet as tolerated per GI ISS Monitor labs PPX EKG: Rhythm: NSR, no PVC's Chest X-Ray: no consolidation, no effusion, no pneumothorax, no acute cardiopulmonary disease, No acute disease CT Abdomen: Patient was noted to have concentric thickening Sigmoid colon and rectum Critical Care - Objective Last 24 Hour Vital Signs Date Time Temp Pulse Resp B/P (MAP) Pulse Ox O2 Delivery O2 Flow Rate FiO2 02/13/19 19:25 99 Nasal Cannula 2.0 28 02/13/19 19:24 101 18 99 Nasal Cannula 2.0 28 02/13/19 18:02 139/70 02/13/19 16:00 99.1 98 19 144/78 (100) 95 02/13/19 16:00 Nasal Cannula 2.0 02/13/19 16:00 110 02/13/19 12:05 100 02/13/19 12:00 Nasal Cannula 2.0 02/13/19 12:00 98.1 112 20 151/87 (108) 95 02/13/19 11:41 151/87 02/13/19 08:00 Nasal Cannula 2.0 02/13/19 08:00 97.7 107 20 140/69 (92) 97 02/13/19 07:57 98 Nasal Cannula 2.0 28 02/13/19 07:50 111 02/13/19 06:01 148/69 02/13/19 04:00 105 02/13/19 04:00 98.4 105 20 148/69 (95) 98 02/13/19 04:00 Nasal Cannula 2.0 Nasal Cannula 2.0 02/13/19 00:00 99.0 110 20 138/92 (107) 98 02/13/19 00:00 Nasal Cannula 2.0 Nasal Cannula 2.0 02/13/19 00:00 106 02/12/19 23:49 138/92 Accucheck: 140 Critical Care - Subjective ROS Limited/Unobtainable: No FI02: 28 Vent Support Breath Rate: 18 Vent Support Mode: CPAP Vent Tidal Volume: 500 Sputum Amount: None PEEP: 5.0 PIP: 13 I&O: Intake and Output 02/12/19 02/13/19 18:59 06:59 Intake Total 1663.5 ml 707 ml Output Total 50 ml 900 ml Balance 1613.5 ml -193 ml Intake Oral 300 ml 120 ml IV Total 1363.5 ml 587 ml Output Urine Total 50 ml 900 ml # Bowel Movements 3 6 ET-Tube: 7.5 ET Position: 22 Prince Gallagher MD Feb 13, 2019 21:14
--- NOTE | 2019-02-13 21:20 | NUR ---
NURSE NOTES: re-checked pts b/p as pt.was cleaned then b/p was taken [id number]-will administer Labetalol IV - awaiting for new desk monitor box as the one he has is not working-tele monitor aware.
--- NOTE | 2019-02-13 22:19 | General Progress Note ---
Assessment/Plan Problem List: (1) ARF (acute renal failure) ICD Codes: N17.9 - Acute kidney failure, unspecified SNOMED: 38395743 Qualifiers: Qualified Codes: N17.9 - Acute kidney failure, unspecified (2) Sepsis ICD Codes: A41.9 - Sepsis, unspecified organism SNOMED: 56510682, 47509140 Qualifiers: Qualified Codes: A41.9 - Sepsis, unspecified organism; R65.20 - Severe sepsis without septic shock; N17.9 - Acute kidney failure, unspecified (3) Lactic acidosis ICD Codes: E87.2 - Acidosis SNOMED: 67375956, 18042643 (4) Anemia ICD Codes: D64.9 - Anemia, unspecified SNOMED: 663542889 (5) DKA (diabetic ketoacidoses) ICD Codes: E11.10 - Type 2 diabetes mellitus with ketoacidosis without coma SNOMED: 865898533, 08855750 Qualifiers: Qualified Codes: E13.10 - Other specified diabetes mellitus with ketoacidosis without coma (6) GIB (gastrointestinal bleeding) ICD Codes: K92.2 - Gastrointestinal hemorrhage, unspecified SNOMED: 21669666 (7) Acute respiratory failure ICD Codes: J96.00 - Acute respiratory failure, unspecified whether with hypoxia or hypercapnia SNOMED: 99083090 (8) Dehydration ICD Codes: E86.0 - Dehydration SNOMED: 48493426, 33535995 Status: progressing, unchanged Assessment/Plan: resp insuff dka resolved poor hygeine sugar improving no bleeding h/h stable more alert sugar is impro Subjective ROS Limited/Unobtainable: Yes Allergies: Coded Allergies: No Known Allergies (Unverified , 02/07/19) Objective Last 24 Hour Vital Signs Date Time Temp Pulse Resp B/P (MAP) Pulse Ox O2 Delivery O2 Flow Rate FiO2 02/13/19 21:52 98 154/78 02/13/19 21:20 154/78 (103) 02/13/19 20:00 99.0 94 18 169/82 (111) 100 02/13/19 19:25 99 Nasal Cannula 2.0 28 02/13/19 19:24 101 18 99 Nasal Cannula 2.0 28 02/13/19 18:02 139/70 02/13/19 16:00 99.1 98 19 144/78 (100) 95 02/13/19 16:00 Nasal Cannula 2.0 02/13/19 16:00 110 02/13/19 12:05 100 02/13/19 12:00 Nasal Cannula 2.0 02/13/19 12:00 98.1 112 20 151/87 (108) 95 02/13/19 11:41 151/87 02/13/19 08:00 Nasal Cannula 2.0 02/13/19 08:00 97.7 107 20 140/69 (92) 97 02/13/19 07:57 98 Nasal Cannula 2.0 28 02/13/19 07:50 111 02/13/19 06:01 148/69 02/13/19 04:00 105 02/13/19 04:00 98.4 105 20 148/69 (95) 98 02/13/19 04:00 Nasal Cannula 2.0 Nasal Cannula 2.0 02/13/19 00:00 99.0 110 20 138/92 (107) 98 02/13/19 00:00 Nasal Cannula 2.0 Nasal Cannula 2.0 02/13/19 00:00 106 02/12/19 23:49 138/92 Intake and Output 02/12/19 02/13/19 18:59 06:59 Intake Total 1663.5 ml 707 ml Output Total 50 ml 900 ml Balance 1613.5 ml -193 ml Intake Oral 300 ml 120 ml IV Total 1363.5 ml 587 ml Output Urine Total 50 ml 900 ml # Bowel Movements 3 6 Height (Feet): 5 Height (Inches): 5.00 Weight (Pounds): 153 Cardiovascular: normal rate Respiratory/Chest: lungs clear Abdomen: soft Harvey Gee MD Feb 13, 2019 22:19
--- NOTE | 2019-02-13 22:30 | NUR ---
NURSE NOTES: Labetalol appears to be effective b/p trending down to 143/75nd heart rate at 88- pt. appears to be resting comfortably and no distress noted.
[2019-02-14] MEDS: D5 1/2NS 1,000 ML IV SCH (03:19)
[2019-02-14 04:00] VITALS: BP 145/68
[2019-02-14 04:59] LABS: BASOPHILS % (AUTO) 0.6 % (0.0-2.0); EOSINOPHILS % (AUTO) 1.4 % (0.0-3.0); HEMOGLOBIN 11.1 G/DL (14.2-18.0); LYMPHOCYTES % (AUTO) 14.3 % (20.0-45.0); MEAN CORPUSCULAR VOLUME 92 FL (80-99); MONOCYTES % (AUTO) 6.6 % (1.0-10.0); NEUTROPHILS % (AUTO) 77.1 % (45.0-75.0); PLATELET COUNT 297 K/UL (150-450); RED BLOOD COUNT 3.58 M/UL (4.70-6.10); RED CELL DISTRIBUTION WIDTH 12.7 % (11.6-14.8); WHITE BLOOD COUNT 11.5 K/UL (4.8-10.8)
[2019-02-14 05:12] LABS: ANION GAP 8 mmol/L (5-15); BLOOD UREA NITROGEN 3 mg/dL (7-18); CALCIUM 8.1 MG/DL (8.5-10.1); CARBON DIOXIDE 28 MMOL/L (21-32); CHLORIDE 107 MMOL/L (98-107); CREATININE 0.5 MG/DL (0.55-1.30); POTASSIUM 2.9 MMOL/L (3.5-5.1); SODIUM 143 MMOL/L (136-145)
[2019-02-14] MEDS: Enalaprilat 1.25mg/ml Inj IV SCH ×2 (05:34→12:03)
[2019-02-14] MEDS: NovoLOG Insulin Flexpen SUBQ SCH ×4 (06:17→20:48)
--- NOTE | 2019-02-14 06:42 | General Progress Note ---
Assessment/Plan Problem List: (1) Sepsis ICD Codes: A41.9 - Sepsis, unspecified organism SNOMED: 72891710, 10715745 Qualifiers: Qualified Codes: A41.9 - Sepsis, unspecified organism; R65.20 - Severe sepsis without septic shock; N17.9 - Acute kidney failure, unspecified (2) Sinus tachycardia ICD Codes: R00.0 - Tachycardia, unspecified SNOMED: 94450272 (3) ARF (acute renal failure) ICD Codes: N17.9 - Acute kidney failure, unspecified SNOMED: 59108767 Qualifiers: Qualified Codes: N17.9 - Acute kidney failure, unspecified (4) Lactic acidosis ICD Codes: E87.2 - Acidosis SNOMED: 03558792, 55350689 (5) Esophageal varices ICD Codes: I85.00 - Esophageal varices without bleeding SNOMED: 65676259 Status: progressing, unchanged Assessment/Plan: no need for basal insulin for now continue Novolog sliding scale Subjective Allergies: Coded Allergies: No Known Allergies (Unverified , 02/07/19) All Systems: reviewed and negative except above Subjective events noted glucose values are stable Item Value Date Time Bedside Blood Glucose 170 mg/dl H 02/14/19 0617 Bedside Blood Glucose 131 mg/dl H 02/14/19 0000 Bedside Blood Glucose 140 mg/dl H 02/13/19 2024 Bedside Blood Glucose 106 mg/dl 02/13/19 1654 Bedside Blood Glucose 115 mg/dl 02/13/19 1153 Bedside Blood Glucose 130 mg/dl H 02/13/19 0603 Bedside Blood Glucose 121 mg/dl H 02/13/19 0000 Objective Last 24 Hour Vital Signs Date Time Temp Pulse Resp B/P (MAP) Pulse Ox O2 Delivery O2 Flow Rate FiO2 02/14/19 05:44 90 02/14/19 05:34 148/73 02/14/19 05:31 93 02/14/19 04:00 96 02/14/19 04:00 98.0 84 18 145/68 (93) 99 02/14/19 04:00 Nasal Cannula 2.0 02/14/19 04:00 2.0 02/14/19 00:00 Nasal Cannula 2.0 02/14/19 00:00 2.0 02/13/19 23:55 98.2 89 18 142/63 (89) 100 02/13/19 23:46 94 02/13/19 23:43 145/62 02/13/19 23:27 91 02/13/19 22:30 88 143/75 (97) 02/13/19 21:54 112 02/13/19 21:52 98 154/78 02/13/19 21:48 93 02/13/19 21:20 154/78 (103) 02/13/19 20:00 2.0 02/13/19 20:00 116 02/13/19 20:00 Nasal Cannula 2.0 02/13/19 20:00 99.0 94 18 169/82 (111) 100 02/13/19 19:25 99 Nasal Cannula 2.0 28 02/13/19 19:24 101 18 99 Nasal Cannula 2.0 28 02/13/19 18:02 139/70 02/13/19 16:00 99.1 98 19 144/78 (100) 95 02/13/19 16:00 Nasal Cannula 2.0 02/13/19 16:00 110 02/13/19 12:05 100 02/13/19 12:00 Nasal Cannula 2.0 02/13/19 12:00 98.1 112 20 151/87 (108) 95 02/13/19 11:41 151/87 02/13/19 08:00 Nasal Cannula 2.0 02/13/19 08:00 97.7 107 20 140/69 (92) 97 02/13/19 07:57 98 Nasal Cannula 2.0 28 02/13/19 07:50 111 Intake and Output 02/13/19 02/14/19 19:00 07:00 Intake Total 1615.166 ml 537 ml Output Total 1000 ml 1300 ml Balance 615.166 ml -763 ml Intake Oral 960 ml IV Total 655.166 ml 537 ml Output Urine Total 1000 ml 1300 ml # Voids 2 # Bowel Movements 3 Laboratory Tests 02/14/19 03:50: White Blood Count 11.5H, Red Blood Count 3.58L, Hemoglobin 11.1L, Hematocrit 33.0L, Mean Corpuscular Volume 92, Mean Corpuscular Hemoglobin 31.0, Mean Corpuscular Hemoglobin Concent 33.7, Red Cell Distribution Width 12.7, Platelet Count 297, Mean Platelet Volume 4.9L, Neutrophils (%) (Auto) 77.1H, Lymphocytes (%) (Auto) 14.3L, Monocytes (%) (Auto) 6.6, Eosinophils (%) (Auto) 1.4, Basophils (%) (Auto) 0.6, Sodium Level 143, Potassium Level 2.9L, Chloride Level 107, Carbon Dioxide Level 28, Anion Gap 8, Blood Urea Nitrogen 3L, Creatinine 0.5L, Estimat Glomerular Filtration Rate , Glucose Level 131H, Calcium Level 8.1L Height (Feet): 5 Height (Inches): 5.00 Weight (Pounds): 151 General Appearance: no apparent distress Neck: normal alignment Cardiovascular: normal rate Respiratory/Chest: decreased breath sounds Abdomen: normal bowel sounds Pelvis: normal external exam Objective Current Medications Medications (Trade) Dose Ordered Sig/Manish Route PRN Reason Start Time Stop Time Status Last Admin Dose Admin Acetaminophen (Tylenol) 650 mg Q6H PRN ORAL Mild Pain/Temp > 100.5 02/11/19 13:00 03/10/19 12:59 Clotrimazole (Lotrimin) 1 applic THREE TIMES A DAY TOPIC 02/11/19 13:00 03/10/19 17:59 02/13/19 18:02 Dextrose (Dextrose 50%) 25 ml Q30M PRN IV Hypoglycemia 02/11/19 13:00 03/10/19 08:59 Dextrose (Dextrose 50%) 50 ml Q30M PRN IV Hypoglycemia 02/11/19 13:00 03/10/19 08:59 Dextrose/Sodium Chloride 1,000 ml @ 50 mls/hr Q20H IV 02/12/19 12:45 03/10/19 19:14 02/14/19 03:19 Enalaprilat (Vasotec) 2.5 mg Q6HR IV 02/11/19 18:00 03/13/19 17:59 02/14/19 05:34 Insulin Aspart (NovoLOG) AC+HS SUBQ 02/13/19 11:30 03/10/19 11:59 02/14/19 06:17 Labetalol HCl (Normodyne) 20 mg Q4H PRN IV SBP>150 02/11/19 13:30 03/10/19 13:21 02/13/19 21:52 Lorazepam (Ativan 2mg/ml 1ml) 1 mg Q4H PRN IV For Anxiety 02/11/19 13:00 02/15/19 12:59 Pantoprazole (Protonix) 40 mg EVERY 12 HOURS IVP 02/11/19 21:00 03/13/19 20:59 02/13/19 20:25 Thiamine HCl 100 mg/Dextrose 56 ml @ 112 mls/hr Q24H IVPB 02/12/19 13:00 03/14/19 12:59 02/13/19 13:56 Jt Wellington MD Feb 14, 2019 06:42
--- NOTE | 2019-02-14 07:01 | NUR ---
HAND-OFF: Report given to Roshan RN, pt. remains stable and no signs of distress noted- aware to f/u on abnormal labs.
--- NOTE | 2019-02-14 07:15 | NUR ---
NURSE NOTES: Received report from RAJI Walker. Patient is resting in bed, in stable condition. No s/sx of SOB, breathing is even and unlabored. Bed is in lowest position, brakes engaged. Call light is kept within easy reach. Will continue to monitor patient.
[2019-02-14 07:56] VITALS: BP 155/94
[2019-02-14] MEDS: Pantoprazole Inj IVP SCH (08:12)
--- NOTE | 2019-02-14 08:30 | General Progress Note ---
Assessment/Plan Problem List: (1) GIB (gastrointestinal bleeding) ICD Codes: K92.2 - Gastrointestinal hemorrhage, unspecified SNOMED: 26354079 Status: progressing, unchanged Assessment/Plan: stable H&H full liquid cont protonix treat for HP Subjective ROS Limited/Unobtainable: Yes Allergies: Coded Allergies: No Known Allergies (Unverified , 02/07/19) Objective Last 24 Hour Vital Signs Date Time Temp Pulse Resp B/P (MAP) Pulse Ox O2 Delivery O2 Flow Rate FiO2 02/14/19 07:56 98.2 101 18 155/94 (114) 99 02/14/19 07:03 98 Nasal Cannula 2.0 28 02/14/19 05:44 90 02/14/19 05:34 148/73 02/14/19 05:31 93 02/14/19 04:00 96 02/14/19 04:00 98.0 84 18 145/68 (93) 99 02/14/19 04:00 Nasal Cannula 2.0 02/14/19 04:00 2.0 02/14/19 00:00 Nasal Cannula 2.0 02/14/19 00:00 2.0 02/13/19 23:55 98.2 89 18 142/63 (89) 100 02/13/19 23:46 94 02/13/19 23:43 145/62 02/13/19 23:27 91 02/13/19 22:30 88 143/75 (97) 02/13/19 21:54 112 02/13/19 21:52 98 154/78 02/13/19 21:48 93 02/13/19 21:20 154/78 (103) 02/13/19 20:00 2.0 02/13/19 20:00 116 02/13/19 20:00 Nasal Cannula 2.0 02/13/19 20:00 99.0 94 18 169/82 (111) 100 02/13/19 19:25 99 Nasal Cannula 2.0 28 02/13/19 19:24 101 18 99 Nasal Cannula 2.0 28 02/13/19 18:02 139/70 02/13/19 16:00 99.1 98 19 144/78 (100) 95 02/13/19 16:00 Nasal Cannula 2.0 02/13/19 16:00 110 8/26/19 12:05 100 02/13/19 12:00 Nasal Cannula 2.0 02/13/19 12:00 98.1 112 20 151/87 (108) 95 02/13/19 11:41 151/87 Intake and Output 02/13/19 02/14/19 19:00 07:00 Intake Total 1615.166 ml 587 ml Output Total 1000 ml 1300 ml Balance 615.166 ml -713 ml Intake Oral 960 ml IV Total 655.166 ml 587 ml Output Urine Total 1000 ml 1300 ml # Voids 2 # Bowel Movements 3 Laboratory Tests 02/14/19 03:20: Magnesium Level 2.0 02/14/19 03:50: White Blood Count 11.5H, Red Blood Count 3.58L, Hemoglobin 11.1L, Hematocrit 33.0L, Mean Corpuscular Volume 92, Mean Corpuscular Hemoglobin 31.0, Mean Corpuscular Hemoglobin Concent 33.7, Red Cell Distribution Width 12.7, Platelet Count 297, Mean Platelet Volume 4.9L, Neutrophils (%) (Auto) 77.1H, Lymphocytes (%) (Auto) 14.3L, Monocytes (%) (Auto) 6.6, Eosinophils (%) (Auto) 1.4, Basophils (%) (Auto) 0.6, Sodium Level 143, Potassium Level 2.9L, Chloride Level 107, Carbon Dioxide Level 28, Anion Gap 8, Blood Urea Nitrogen 3L, Creatinine 0.5L, Estimat Glomerular Filtration Rate , Glucose Level 131H, Calcium Level 8.1L Height (Feet): 5 Height (Inches): 5.00 Weight (Pounds): 151 General Appearance: alert EENT: normal ENT inspection Neck: supple Cardiovascular: normal rate Respiratory/Chest: decreased breath sounds Abdomen: normal bowel sounds, non tender, soft Extremities: non-tender Kj Conn MD Feb 14, 2019 08:30
[2019-02-14] MEDS ORDERED: Clarithromycin 500mg tab ORAL SCH (10:00)
[2019-02-14 10:04] LABS: ALANINE AMINOTRANSFERASE 188 U/L (12-78); ALKALINE PHOSPHATASE 58 U/L (46-116); ASPARTATE AMINO TRANSFERASE 171 U/L (15-37); BILIRUBIN,DIRECT 0.1 MG/DL (0.0-0.3); BILIRUBIN,TOTAL 0.6 MG/DL (0.2-1.0); PHOSPHORUS 2.7 MG/DL (2.5-4.9)
--- NOTE | 2019-02-14 11:20 | NUR ---
CASE MANAGEMENT: REVIEW 02/14/2019 SI:DKA. GIB. T 98.2 HR 101 RR 18 B/P 155/94 SATS 99% ON 2L/NC WBC 11.5 K 2.9 BUN 3 CR 0.5 GLU 131 CA 8.1 IS:PROTONIX IV Q12H VASOTEC IV Q6H ZOSYN IV Q8H THIAMINE IV Q24H SDU
[2019-02-14 11:49] VITALS: BP 159/78
--- NOTE | 2019-02-14 12:19 | Infectious Diseases Prog Note ---
Assessment/Plan Assessment/Plan IMPRESSION: Sepsis, systemic inflammatory response syndrome, Leukocytosis GI bleeding Duodenal ulcer. Uncontrolled DM Lactic acidosis, Acute renal failure improving. Onychomycosis and tinea pedis, anemia, received blood transfusion, Elevated transaminase level. Acute respiratory failure resolved RECOMMENDATION: continue topical clotrimazole Subjective ROS Limited/Unobtainable: Yes Constitutional: Denies: fever Allergies: Coded Allergies: No Known Allergies (Unverified , 02/07/19) Objective Vital Signs Last 24 Hour Vital Signs Date Time Temp Pulse Resp B/P (MAP) Pulse Ox O2 Delivery O2 Flow Rate FiO2 02/14/19 12:03 159/78 02/14/19 11:58 Nasal Cannula 2.0 02/14/19 11:58 2.0 02/14/19 11:49 97.9 92 18 159/78 (105) 97 02/14/19 08:00 Nasal Cannula 2.0 02/14/19 08:00 2.0 02/14/19 08:00 95 02/14/19 07:56 98.2 101 18 155/94 (114) 99 02/14/19 07:03 98 Nasal Cannula 2.0 28 02/14/19 05:44 90 02/14/19 05:34 148/73 02/14/19 05:31 93 02/14/19 04:00 96 02/14/19 04:00 98.0 84 18 145/68 (93) 99 02/14/19 04:00 Nasal Cannula 2.0 02/14/19 04:00 2.0 02/14/19 00:00 Nasal Cannula 2.0 02/14/19 00:00 2.0 02/13/19 23:55 98.2 89 18 142/63 (89) 100 02/13/19 23:46 94 02/13/19 23:43 145/62 02/13/19 23:27 91 02/13/19 22:30 88 143/75 (97) 02/13/19 21:54 112 02/13/19 21:52 98 154/78 02/13/19 21:48 93 02/13/19 21:20 154/78 (103) 02/13/19 20:00 2.0 02/13/19 20:00 116 02/13/19 20:00 Nasal Cannula 2.0 02/13/19 20:00 99.0 94 18 169/82 (111) 100 02/13/19 19:25 99 Nasal Cannula 2.0 28 02/13/19 19:24 101 18 99 Nasal Cannula 2.0 28 02/13/19 18:02 139/70 02/13/19 16:00 99.1 98 19 144/78 (100) 95 02/13/19 16:00 Nasal Cannula 2.0 02/13/19 16:00 110 Height (Feet): 5 Height (Inches): 5.00 Weight (Pounds): 151 General Appearance: no acute distress HEENT: mucous membranes moist Respiratory/Chest: lungs clear Cardiovascular: normal rate Abdomen: soft, non tender Extremities: no edema Neurologic/Psychiatric: other - sleeping Laboratory Tests Test 02/14/19 03:20 02/14/19 03:50 Phosphorus Level 2.7 MG/DL (2.5-4.9) Magnesium Level 2.0 MG/DL (1.8-2.4) Total Bilirubin 0.6 MG/DL (0.2-1.0) Direct Bilirubin 0.1 MG/DL (0.0-0.3) Aspartate Amino Transf (AST/SGOT) 171 U/L (15-37) H Alanine Aminotransferase (ALT/SGPT) 188 U/L (12-78) H Alkaline Phosphatase 58 U/L (46-116) Total Protein 5.5 G/DL (6.4-8.2) L Albumin 2.0 G/DL (3.4-5.0) L White Blood Count 11.5 K/UL (4.8-10.8) H Red Blood Count 3.58 M/UL (4.70-6.10) L Hemoglobin 11.1 G/DL (14.2-18.0) L Hematocrit 33.0 % (42.0-52.0) L Mean Corpuscular Volume 92 FL (80-99) Mean Corpuscular Hemoglobin 31.0 PG (27.0-31.0) Mean Corpuscular Hemoglobin Concent 33.7 G/DL (32.0-36.0) Red Cell Distribution Width 12.7 % (11.6-14.8) Platelet Count 297 K/UL (150-450) Mean Platelet Volume 4.9 FL (6.5-10.1) L Neutrophils (%) (Auto) 77.1 % (45.0-75.0) H Lymphocytes (%) (Auto) 14.3 % (20.0-45.0) L Monocytes (%) (Auto) 6.6 % (1.0-10.0) Eosinophils (%) (Auto) 1.4 % (0.0-3.0) Basophils (%) (Auto) 0.6 % (0.0-2.0) Sodium Level 143 MMOL/L (136-145) Potassium Level 2.9 MMOL/L (3.5-5.1) L Chloride Level 107 MMOL/L (98-107) Carbon Dioxide Level 28 MMOL/L (21-32) Anion Gap 8 mmol/L (5-15) Blood Urea Nitrogen 3 mg/dL (7-18) L Creatinine 0.5 MG/DL (0.55-1.30) L Estimat Glomerular Filtration Rate mL/min (>60) Glucose Level 131 MG/DL (74-106) H Calcium Level 8.1 MG/DL (8.5-10.1) L Current Medications Medications (Trade) Dose Ordered Sig/Manish Route PRN Reason Start Time Stop Time Status Last Admin Dose Admin Acetaminophen (Tylenol) 650 mg Q6H PRN ORAL Mild Pain/Temp > 100.5 02/11/19 13:00 03/10/19 12:59 Amoxicillin (Amoxil) 1,000 mg BID@0630,1630 ORAL 02/14/19 16:30 02/21/19 16:29 Clarithromycin (Biaxin) 500 mg EVERY 12 HOURS ORAL 02/14/19 10:00 02/21/19 09:59 02/14/19 09:32 Clotrimazole (Lotrimin) 1 applic THREE TIMES A DAY TOPIC 02/11/19 13:00 03/10/19 17:59 02/14/19 08:12 Dextrose (Dextrose 50%) 25 ml Q30M PRN IV Hypoglycemia 02/11/19 13:00 03/10/19 08:59 Dextrose (Dextrose 50%) 50 ml Q30M PRN IV Hypoglycemia 02/11/19 13:00 03/10/19 08:59 Dextrose/Sodium Chloride 1,000 ml @ 50 mls/hr Q20H IV 02/12/19 12:45 03/10/19 19:14 02/14/19 03:19 Enalaprilat (Vasotec) 2.5 mg Q6HR IV 02/11/19 18:00 03/13/19 17:59 02/14/19 12:03 Insulin Aspart (NovoLOG) AC+HS SUBQ 02/13/19 11:30 03/10/19 11:59 02/14/19 11:55 Labetalol HCl (Normodyne) 20 mg Q4H PRN IV SBP>150 02/11/19 13:30 03/10/19 13:21 02/13/19 21:52 Lorazepam (Ativan 2mg/ml 1ml) 1 mg Q4H PRN IV For Anxiety 02/11/19 13:00 02/15/19 12:59 Pantoprazole (Protonix) 40 mg EVERY 12 HOURS IVP 02/11/19 21:00 03/13/19 20:59 02/14/19 08:12 Potassium Chloride 100 ml @ 100 mls/hr Q1HR IVPB 02/14/19 10:00 02/14/19 13:59 02/14/19 11:51 Thiamine HCl 100 mg/Dextrose 56 ml @ 112 mls/hr Q24H IVPB 02/12/19 13:00 03/14/19 12:59 02/13/19 13:56 Fazal Basilio MD Feb 14, 2019 12:19
--- NOTE | 2019-02-14 12:40 | Cardiac Electrophysiology PN ---
Assessment/Plan Assessment/Plan 1. Sinus tachycardia due to diabetic ketoacidosis and acute GI bleed. No evidence of atrial fibrillation or atrial flutter or any SVT. EF 60%. In NSR today 2. S/P Respiratory failure, Extubated 3. Acute GI bleed, status post endoscopy by Dr. Conn that showed duodenal ulcer. Biopsy was performed. Patient received 4 units of blood transfusion. The patient had large duodenal bulb ulcer with hemorrhage.Stable now. No indication for surgery at this time per Dr. Baumann 4. Diabetic ketoacidosis, on insulin drip. 5. Accelerated hypertension. On IV hydralazine. DW RN DC to [facility] pending Subjective Subjective Transferred out to SDU. No CP or SOB Objective Last 24 Hour Vital Signs Date Time Temp Pulse Resp B/P (MAP) Pulse Ox O2 Delivery O2 Flow Rate FiO2 02/14/19 12:03 159/78 02/14/19 11:58 Nasal Cannula 2.0 02/14/19 11:58 2.0 02/14/19 11:49 97.9 92 18 159/78 (105) 97 02/14/19 08:00 Nasal Cannula 2.0 02/14/19 08:00 2.0 02/14/19 08:00 95 02/14/19 07:56 98.2 101 18 155/94 (114) 99 02/14/19 07:03 98 Nasal Cannula 2.0 28 02/14/19 05:44 90 02/14/19 05:34 148/73 02/14/19 05:31 93 02/14/19 04:00 96 02/14/19 04:00 98.0 84 18 145/68 (93) 99 02/14/19 04:00 Nasal Cannula 2.0 02/14/19 04:00 2.0 02/14/19 00:00 Nasal Cannula 2.0 02/14/19 00:00 2.0 02/13/19 23:55 98.2 89 18 142/63 (89) 100 02/13/19 23:46 94 02/13/19 23:43 145/62 02/13/19 23:27 91 02/13/19 22:30 88 143/75 (97) 02/13/19 21:54 112 02/13/19 21:52 98 154/78 02/13/19 21:48 93 8/26/19 21:20 154/78 (103) 02/13/19 20:00 2.0 02/13/19 20:00 116 02/13/19 20:00 Nasal Cannula 2.0 02/13/19 20:00 99.0 94 18 169/82 (111) 100 02/13/19 19:25 99 Nasal Cannula 2.0 28 02/13/19 19:24 101 18 99 Nasal Cannula 2.0 28 02/13/19 18:02 139/70 02/13/19 16:00 99.1 98 19 144/78 (100) 95 02/13/19 16:00 Nasal Cannula 2.0 02/13/19 16:00 110 Intake and Output 02/13/19 02/14/19 19:00 07:00 Intake Total 1615.166 ml 587 ml Output Total 1000 ml 1300 ml Balance 615.166 ml -713 ml Intake Oral 960 ml IV Total 655.166 ml 587 ml Output Urine Total 1000 ml 1300 ml # Voids 2 # Bowel Movements 3 Laboratory Tests Test 02/14/19 03:20 02/14/19 03:50 Phosphorus Level 2.7 MG/DL (2.5-4.9) Magnesium Level 2.0 MG/DL (1.8-2.4) Total Bilirubin 0.6 MG/DL (0.2-1.0) Direct Bilirubin 0.1 MG/DL (0.0-0.3) Aspartate Amino Transf (AST/SGOT) 171 U/L (15-37) H Alanine Aminotransferase (ALT/SGPT) 188 U/L (12-78) H Alkaline Phosphatase 58 U/L (46-116) Total Protein 5.5 G/DL (6.4-8.2) L Albumin 2.0 G/DL (3.4-5.0) L White Blood Count 11.5 K/UL (4.8-10.8) H Red Blood Count 3.58 M/UL (4.70-6.10) L Hemoglobin 11.1 G/DL (14.2-18.0) L Hematocrit 33.0 % (42.0-52.0) L Mean Corpuscular Volume 92 FL (80-99) Mean Corpuscular Hemoglobin 31.0 PG (27.0-31.0) Mean Corpuscular Hemoglobin Concent 33.7 G/DL (32.0-36.0) Red Cell Distribution Width 12.7 % (11.6-14.8) Platelet Count 297 K/UL (150-450) Mean Platelet Volume 4.9 FL (6.5-10.1) L Neutrophils (%) (Auto) 77.1 % (45.0-75.0) H Lymphocytes (%) (Auto) 14.3 % (20.0-45.0) L Monocytes (%) (Auto) 6.6 % (1.0-10.0) Eosinophils (%) (Auto) 1.4 % (0.0-3.0) Basophils (%) (Auto) 0.6 % (0.0-2.0) Sodium Level 143 MMOL/L (136-145) Potassium Level 2.9 MMOL/L (3.5-5.1) L Chloride Level 107 MMOL/L (98-107) Carbon Dioxide Level 28 MMOL/L (21-32) Anion Gap 8 mmol/L (5-15) Blood Urea Nitrogen 3 mg/dL (7-18) L Creatinine 0.5 MG/DL (0.55-1.30) L Estimat Glomerular Filtration Rate mL/min (>60) Glucose Level 131 MG/DL (74-106) H Calcium Level 8.1 MG/DL (8.5-10.1) L Objective HEAD AND NECK: No JVD. LUNGS: Decreased breath sounds. CARDIOVASCULAR: Nl S1 and S2 with no gallop. ABDOMEN: Soft. EXTREMITIES: No pitting edema poor feet hygiene. Matthew Kent MD Feb 14, 2019 12:40
[2019-02-14] MEDS ORDERED: HydrALAZINE 25mg tab ORAL PRN (12:45)
--- NOTE | 2019-02-14 12:45 | NUR ---
NURSE NOTES: Dr. Kent seen and examined patient. Ordered to transfer patient to [facility].
[2019-02-14] MEDS ORDERED: Metoprolol 25mg tab ORAL SCH ×2 (12:46→21:00)
--- NOTE | 2019-02-14 12:46 | Nephrology Progress Note ---
Assessment/Plan Problem List: (1) ARF (acute renal failure) (2) Dehydration (3) Acute respiratory failure (4) Esophageal varices (5) GIB (gastrointestinal bleeding) Assessment Acute renal failure , Cr lower now intubated Dehydration Hyperglycemia high Lactate level esophageal bleed GI bleed . Plan tolerating full liquid- switch meds to po as possible- to med surg K and Phos and mag supplement as needed per GI- Monitor lytes and renal parameters Subjective ROS Limited/Unobtainable: No Objective Objective Last 24 Hour Vital Signs Date Time Temp Pulse Resp B/P (MAP) Pulse Ox O2 Delivery O2 Flow Rate FiO2 02/14/19 12:03 159/78 02/14/19 11:58 Nasal Cannula 2.0 02/14/19 11:58 2.0 02/14/19 11:49 97.9 92 18 159/78 (105) 97 02/14/19 08:00 Nasal Cannula 2.0 02/14/19 08:00 2.0 02/14/19 08:00 95 02/14/19 07:56 98.2 101 18 155/94 (114) 99 02/14/19 07:03 98 Nasal Cannula 2.0 28 02/14/19 05:44 90 02/14/19 05:34 148/73 02/14/19 05:31 93 02/14/19 04:00 96 02/14/19 04:00 98.0 84 18 145/68 (93) 99 02/14/19 04:00 Nasal Cannula 2.0 02/14/19 04:00 2.0 02/14/19 00:00 Nasal Cannula 2.0 02/14/19 00:00 2.0 02/13/19 23:55 98.2 89 18 142/63 (89) 100 02/13/19 23:46 94 02/13/19 23:43 145/62 02/13/19 23:27 91 02/13/19 22:30 88 143/75 (97) 02/13/19 21:54 112 02/13/19 21:52 98 154/78 02/13/19 21:48 93 02/13/19 21:20 154/78 (103) 02/13/19 20:00 2.0 02/13/19 20:00 116 02/13/19 20:00 Nasal Cannula 2.0 02/13/19 20:00 99.0 94 18 169/82 (111) 100 02/13/19 19:25 99 Nasal Cannula 2.0 28 02/13/19 19:24 101 18 99 Nasal Cannula 2.0 28 02/13/19 18:02 139/70 02/13/19 16:00 99.1 98 19 144/78 (100) 95 02/13/19 16:00 Nasal Cannula 2.0 02/13/19 16:00 110 Intake and Output 02/13/19 02/14/19 19:00 07:00 Intake Total 1615.166 ml 587 ml Output Total 1000 ml 1300 ml Balance 615.166 ml -713 ml Intake Oral 960 ml IV Total 655.166 ml 587 ml Output Urine Total 1000 ml 1300 ml # Voids 2 # Bowel Movements 3 Laboratory Tests 02/14/19 03:20: Phosphorus Level 2.7, Magnesium Level 2.0, Total Bilirubin 0.6, Direct Bilirubin 0.1, Aspartate Amino Transf (AST/SGOT) 171H, Alanine Aminotransferase (ALT/SGPT) 188H, Alkaline Phosphatase 58, Total Protein 5.5L, Albumin 2.0L 02/14/19 03:50: White Blood Count 11.5H, Red Blood Count 3.58L, Hemoglobin 11.1L, Hematocrit 33.0L, Mean Corpuscular Volume 92, Mean Corpuscular Hemoglobin 31.0, Mean Corpuscular Hemoglobin Concent 33.7, Red Cell Distribution Width 12.7, Platelet Count 297, Mean Platelet Volume 4.9L, Neutrophils (%) (Auto) 77.1H, Lymphocytes (%) (Auto) 14.3L, Monocytes (%) (Auto) 6.6, Eosinophils (%) (Auto) 1.4, Basophils (%) (Auto) 0.6, Sodium Level 143, Potassium Level 2.9L, Chloride Level 107, Carbon Dioxide Level 28, Anion Gap 8, Blood Urea Nitrogen 3L, Creatinine 0.5L, Estimat Glomerular Filtration Rate , Glucose Level 131H, Calcium Level 8.1L Height (Feet): 5 Height (Inches): 5.00 Weight (Pounds): 151 General Appearance: no apparent distress Cardiovascular: tachycardia Respiratory/Chest: lungs clear Abdomen: soft, distended Objective no change Arturo Cruz MD Feb 14, 2019 12:46
--- NOTE | 2019-02-14 13:12 | Surgery Progress Note ---
Surgery Progress Note Subjective Additional Comments no acute events h/h stable leukocytosis improving electrolytes being replaced Objective Last 24 Hour Vital Signs Date Time Temp Pulse Resp B/P (MAP) Pulse Ox O2 Delivery O2 Flow Rate FiO2 02/14/19 13:06 88 02/14/19 13:01 92 159/78 02/14/19 12:03 159/78 02/14/19 11:58 Nasal Cannula 2.0 02/14/19 11:58 2.0 02/14/19 11:49 97.9 92 18 159/78 (105) 97 02/14/19 08:00 Nasal Cannula 2.0 02/14/19 08:00 2.0 02/14/19 08:00 95 02/14/19 07:56 98.2 101 18 155/94 (114) 99 02/14/19 07:03 98 Nasal Cannula 2.0 28 02/14/19 05:44 90 02/14/19 05:34 148/73 02/14/19 05:31 93 02/14/19 04:00 96 02/14/19 04:00 98.0 84 18 145/68 (93) 99 02/14/19 04:00 Nasal Cannula 2.0 02/14/19 04:00 2.0 02/14/19 00:00 Nasal Cannula 2.0 02/14/19 00:00 2.0 02/13/19 23:55 98.2 89 18 142/63 (89) 100 02/13/19 23:46 94 02/13/19 23:43 145/62 02/13/19 23:27 91 02/13/19 22:30 88 143/75 (97) 02/13/19 21:54 112 02/13/19 21:52 98 154/78 02/13/19 21:48 93 02/13/19 21:20 154/78 (103) 02/13/19 20:00 2.0 02/13/19 20:00 116 02/13/19 20:00 Nasal Cannula 2.0 02/13/19 20:00 99.0 94 18 169/82 (111) 100 02/13/19 19:25 99 Nasal Cannula 2.0 28 02/13/19 19:24 101 18 99 Nasal Cannula 2.0 28 02/13/19 18:02 139/70 02/13/19 16:00 99.1 98 19 144/78 (100) 95 02/13/19 16:00 Nasal Cannula 2.0 02/13/19 16:00 110 I&O Intake and Output 02/13/19 02/14/19 19:00 07:00 Intake Total 1615.166 ml 587 ml Output Total 1000 ml 1300 ml Balance 615.166 ml -713 ml Intake Oral 960 ml IV Total 655.166 ml 587 ml Output Urine Total 1000 ml 1300 ml # Voids 2 # Bowel Movements 3 Dressing: other Wound: other Drains: other Cardiovascular: RSR Respiratory: clear, decreased breath sounds Abdomen: soft, present bowel sounds, non-distended Extremities: no cyanosis Laboratory Tests Test 02/14/19 03:20 02/14/19 03:50 Phosphorus Level 2.7 MG/DL (2.5-4.9) Magnesium Level 2.0 MG/DL (1.8-2.4) Total Bilirubin 0.6 MG/DL (0.2-1.0) Direct Bilirubin 0.1 MG/DL (0.0-0.3) Aspartate Amino Transf (AST/SGOT) 171 U/L (15-37) H Alanine Aminotransferase (ALT/SGPT) 188 U/L (12-78) H Alkaline Phosphatase 58 U/L (46-116) Total Protein 5.5 G/DL (6.4-8.2) L Albumin 2.0 G/DL (3.4-5.0) L White Blood Count 11.5 K/UL (4.8-10.8) H Red Blood Count 3.58 M/UL (4.70-6.10) L Hemoglobin 11.1 G/DL (14.2-18.0) L Hematocrit 33.0 % (42.0-52.0) L Mean Corpuscular Volume 92 FL (80-99) Mean Corpuscular Hemoglobin 31.0 PG (27.0-31.0) Mean Corpuscular Hemoglobin Concent 33.7 G/DL (32.0-36.0) Red Cell Distribution Width 12.7 % (11.6-14.8) Platelet Count 297 K/UL (150-450) Mean Platelet Volume 4.9 FL (6.5-10.1) L Neutrophils (%) (Auto) 77.1 % (45.0-75.0) H Lymphocytes (%) (Auto) 14.3 % (20.0-45.0) L Monocytes (%) (Auto) 6.6 % (1.0-10.0) Eosinophils (%) (Auto) 1.4 % (0.0-3.0) Basophils (%) (Auto) 0.6 % (0.0-2.0) Sodium Level 143 MMOL/L (136-145) Potassium Level 2.9 MMOL/L (3.5-5.1) L Chloride Level 107 MMOL/L (98-107) Carbon Dioxide Level 28 MMOL/L (21-32) Anion Gap 8 mmol/L (5-15) Blood Urea Nitrogen 3 mg/dL (7-18) L Creatinine 0.5 MG/DL (0.55-1.30) L Estimat Glomerular Filtration Rate mL/min (>60) Glucose Level 131 MG/DL (74-106) H Calcium Level 8.1 MG/DL (8.5-10.1) L Plan Problems: (1) GIB (gastrointestinal bleeding) Assessment & Plan: 69-year-old male with acute gastrointestinal hemorrhage secondary to large duodenal ulcer. Patient had endoscopy with hemostasis just now identified a large ulcer with potential to rebleed. Need to control patient's hypertension and allow for even permissive hypotension if necessary h/h stable overall doing better labs stable now exam stable Will follow and be available in case patient rebleeds at which time he will require an exploration thank you for allowing me to participate in patient's care will follow with recommendations Adelso Baumann Feb 14, 2019 13:12
[2019-02-14 16:00] VITALS: BP 158/74
--- NOTE | 2019-02-14 17:50 | NUR ---
NURSE NOTES: Received report from Roshan RN from [facility]. Pt in bed, awake, talkative, calm, vitals obtained and assessment done, oriented pt to room 412-1, pt is azeri speaking, bed in lowest position, call light within reach.
--- NOTE | 2019-02-14 17:50 | NUR ---
TRANSFER TO FLOOR: Patient transferred to [facility] RM 412-1, per Nancy. Report given to RAJI Hart. Belongings and medications given to RAJI Hart. Family informed of transfer.
[2019-02-14 18:04] VITALS: BP 145/65
[2019-02-14] MEDS ORDERED: LORazepam Inj 2mg/ml 1ml IV PRN (18:30)
[2019-02-14 20:00] VITALS: BP 158/71
--- NOTE | 2019-02-14 20:00 | NUR ---
NURSE NOTES: Received patient awake in bed, able to verbalize needs, no s/s of acute distress. IV access asymptomatic running IVF. Redness/burn noted on right vazquez. No c/o pain at this time. Fall and safety precautions taken.
[2019-02-14] MEDS: Clarithromycin 500mg tab ORAL SCH (20:14)
[2019-02-14] MEDS: Metoprolol 25mg tab ORAL SCH (20:14)
--- NOTE | 2019-02-14 20:24 | General Progress Note ---
Assessment/Plan Problem List: (1) ARF (acute renal failure) ICD Codes: N17.9 - Acute kidney failure, unspecified SNOMED: 22300762 Qualifiers: Qualified Codes: N17.9 - Acute kidney failure, unspecified (2) Sepsis ICD Codes: A41.9 - Sepsis, unspecified organism SNOMED: 35331234, 40239660 Qualifiers: Qualified Codes: A41.9 - Sepsis, unspecified organism; R65.20 - Severe sepsis without septic shock; N17.9 - Acute kidney failure, unspecified (3) Lactic acidosis ICD Codes: E87.2 - Acidosis SNOMED: 84282077, 94638336 (4) Anemia ICD Codes: D64.9 - Anemia, unspecified SNOMED: 312180299 (5) DKA (diabetic ketoacidoses) ICD Codes: E11.10 - Type 2 diabetes mellitus with ketoacidosis without coma SNOMED: 952455051, 26970973 Qualifiers: Qualified Codes: E13.10 - Other specified diabetes mellitus with ketoacidosis without coma (6) GIB (gastrointestinal bleeding) ICD Codes: K92.2 - Gastrointestinal hemorrhage, unspecified SNOMED: 88013501 (7) Acute respiratory failure ICD Codes: J96.00 - Acute respiratory failure, unspecified whether with hypoxia or hypercapnia SNOMED: 72466035 (8) Dehydration ICD Codes: E86.0 - Dehydration SNOMED: 22703748, 30619729 Status: progressing, unchanged Assessment/Plan: resp insuff dka resolved poor hygeine sugar improving gi bleeding clear liquid check h/h Subjective ROS Limited/Unobtainable: Yes Allergies: Coded Allergies: No Known Allergies (Unverified , 02/07/19) Objective Last 24 Hour Vital Signs Date Time Temp Pulse Resp B/P (MAP) Pulse Ox O2 Delivery O2 Flow Rate FiO2 02/14/19 20:14 88 145/65 02/14/19 19:50 96 Room Air 21 02/14/19 18:04 97.8 88 18 145/65 (91) 97 02/14/19 17:16 86 02/14/19 16:00 98.0 85 18 158/74 (102) 98 02/14/19 16:00 Nasal Cannula 2.0 02/14/19 16:00 2.0 02/14/19 13:06 88 02/14/19 13:01 92 159/78 02/14/19 12:03 159/78 02/14/19 11:58 Nasal Cannula 2.0 02/14/19 11:58 2.0 02/14/19 11:49 97.9 92 18 159/78 (105) 97 02/14/19 08:00 Nasal Cannula 2.0 02/14/19 08:00 2.0 02/14/19 08:00 95 02/14/19 07:56 98.2 101 18 155/94 (114) 99 02/14/19 07:03 98 Nasal Cannula 2.0 28 02/14/19 05:44 90 02/14/19 05:34 148/73 02/14/19 05:31 93 02/14/19 04:00 96 02/14/19 04:00 98.0 84 18 145/68 (93) 99 02/14/19 04:00 Nasal Cannula 2.0 02/14/19 04:00 2.0 02/14/19 00:00 Nasal Cannula 2.0 02/14/19 00:00 2.0 02/13/19 23:55 98.2 89 18 142/63 (89) 100 02/13/19 23:46 94 02/13/19 23:43 145/62 02/13/19 23:27 91 02/13/19 22:30 88 143/75 (97) 02/13/19 21:54 112 02/13/19 21:52 98 154/78 02/13/19 21:48 93 02/13/19 21:20 154/78 (103) Intake and Output 02/13/19 02/14/19 19:00 07:00 Intake Total 1615.166 ml 587 ml Output Total 1000 ml 1300 ml Balance 615.166 ml -713 ml Intake Oral 960 ml IV Total 655.166 ml 587 ml Output Urine Total 1000 ml 1300 ml # Voids 2 # Bowel Movements 3 Laboratory Tests 02/14/19 03:20: Phosphorus Level 2.7, Magnesium Level 2.0, Total Bilirubin 0.6, Direct Bilirubin 0.1, Aspartate Amino Transf (AST/SGOT) 171H, Alanine Aminotransferase (ALT/SGPT) 188H, Alkaline Phosphatase 58, Total Protein 5.5L, Albumin 2.0L 02/14/19 03:50: White Blood Count 11.5H, Red Blood Count 3.58L, Hemoglobin 11.1L, Hematocrit 33.0L, Mean Corpuscular Volume 92, Mean Corpuscular Hemoglobin 31.0, Mean Corpuscular Hemoglobin Concent 33.7, Red Cell Distribution Width 12.7, Platelet Count 297, Mean Platelet Volume 4.9L, Neutrophils (%) (Auto) 77.1H, Lymphocytes (%) (Auto) 14.3L, Monocytes (%) (Auto) 6.6, Eosinophils (%) (Auto) 1.4, Basophils (%) (Auto) 0.6, Sodium Level 143, Potassium Level 2.9L, Chloride Level 107, Carbon Dioxide Level 28, Anion Gap 8, Blood Urea Nitrogen 3L, Creatinine 0.5L, Estimat Glomerular Filtration Rate , Glucose Level 131H, Calcium Level 8.1L Height (Feet): 5 Height (Inches): 5.00 Weight (Pounds): 151 Cardiovascular: regular rhythm Respiratory/Chest: lungs clear Abdomen: soft Harvey Gee MD Feb 14, 2019 20:24
[2019-02-15] VITALS: BP 151/69
[2019-02-15 04:00] VITALS: BP 127/84
[2019-02-15] MEDS: NovoLOG Insulin Flexpen SUBQ SCH ×4 (06:30→20:15)
--- NOTE | 2019-02-15 06:51 | General Progress Note ---
Assessment/Plan Problem List: (1) Sepsis ICD Codes: A41.9 - Sepsis, unspecified organism SNOMED: 23407614, 08564309 Qualifiers: Qualified Codes: A41.9 - Sepsis, unspecified organism; R65.20 - Severe sepsis without septic shock; N17.9 - Acute kidney failure, unspecified (2) Sinus tachycardia ICD Codes: R00.0 - Tachycardia, unspecified SNOMED: 92135089 (3) ARF (acute renal failure) ICD Codes: N17.9 - Acute kidney failure, unspecified SNOMED: 08115105 Qualifiers: Qualified Codes: N17.9 - Acute kidney failure, unspecified (4) Lactic acidosis ICD Codes: E87.2 - Acidosis SNOMED: 12096730, 34342322 (5) Esophageal varices ICD Codes: I85.00 - Esophageal varices without bleeding SNOMED: 89673821 Status: progressing, unchanged Assessment/Plan: no need for basal insulin for now continue Novolog sliding scale Subjective Allergies: Coded Allergies: No Known Allergies (Unverified , 02/07/19) Subjective events noted glucose values are stable Item Value Date Time Bedside Blood Glucose 99 mg/dl 02/15/19 0631 Bedside Blood Glucose 98 mg/dl 02/14/19 2048 Bedside Blood Glucose 148 mg/dl H 02/14/19 1709 Bedside Blood Glucose 247 mg/dl H 02/14/19 1159 Bedside Blood Glucose 170 mg/dl H 02/14/19 0617 Bedside Blood Glucose 131 mg/dl H 02/14/19 0000 Objective Last 24 Hour Vital Signs Date Time Temp Pulse Resp B/P (MAP) Pulse Ox O2 Delivery O2 Flow Rate FiO2 02/15/19 04:00 98.7 97 18 127/84 (98) 97 02/15/19 00:00 98.8 78 18 151/69 (96) 97 02/14/19 23:07 Room Air 02/14/19 20:14 88 145/65 02/14/19 20:00 98.2 91 18 158/71 (100) 97 02/14/19 19:50 96 Room Air 21 02/14/19 18:04 97.8 88 18 145/65 (91) 97 02/14/19 17:16 86 02/14/19 16:00 98.0 85 18 158/74 (102) 98 02/14/19 16:00 Nasal Cannula 2.0 02/14/19 16:00 2.0 02/14/19 13:06 88 02/14/19 13:01 92 159/78 02/14/19 12:03 159/78 02/14/19 11:58 Nasal Cannula 2.0 02/14/19 11:58 2.0 02/14/19 11:49 97.9 92 18 159/78 (105) 97 02/14/19 08:00 Nasal Cannula 2.0 02/14/19 08:00 2.0 02/14/19 08:00 95 02/14/19 07:56 98.2 101 18 155/94 (114) 99 02/14/19 07:03 98 Nasal Cannula 2.0 28 Intake and Output 02/14/19 02/15/19 19:00 07:00 Output Total 200 ml Balance -200 ml Output Urine Total 200 ml # Voids 4 Height (Feet): 5 Height (Inches): 5.00 Weight (Pounds): 150 General Appearance: no apparent distress Neck: normal alignment Cardiovascular: normal rate Respiratory/Chest: lungs clear Abdomen: normal bowel sounds Pelvis: normal external exam Objective Current Medications Medications (Trade) Dose Ordered Sig/Manish Route PRN Reason Start Time Stop Time Status Last Admin Dose Admin Acetaminophen (Tylenol) 650 mg Q6H PRN ORAL Mild Pain/Temp > 100.5 02/14/19 18:30 03/10/19 18:29 Amoxicillin (Amoxil) 1,000 mg BID@0630,1630 ORAL 02/15/19 06:30 02/21/19 16:29 02/15/19 05:51 Clarithromycin (Biaxin) 500 mg EVERY 12 HOURS ORAL 02/14/19 21:00 02/21/19 09:59 02/14/19 20:14 Clotrimazole (Lotrimin) 1 applic THREE TIMES A DAY TOPIC 02/14/19 18:00 03/10/19 17:59 Dextrose (Dextrose 50%) 25 ml Q30M PRN IV Hypoglycemia 02/14/19 08:30 03/10/19 08:29 Dextrose (Dextrose 50%) 50 ml Q30M PRN IV Hypoglycemia 02/14/19 18:30 03/10/19 18:29 Hydralazine HCl (Apresoline) 25 mg Q4H PRN ORAL bp over 160 syst 02/14/19 18:30 03/16/19 18:29 Insulin Aspart (NovoLOG) AC+HS SUBQ 02/14/19 21:00 03/10/19 11:59 Lorazepam (Ativan 2mg/ml 1ml) 1 mg Q4H PRN IV For Anxiety 02/14/19 18:30 02/15/19 18:29 Metoprolol Tartrate (Lopressor) 25 mg Q12HR ORAL 02/14/19 21:00 03/16/19 20:59 02/14/19 20:14 Pantoprazole (Protonix) 40 mg BID ORAL 02/15/19 09:00 03/17/19 08:59 Thiamine HCl (Vitamin B1) 100 mg DAILY ORAL 02/15/19 09:00 03/17/19 08:59 Jt Wellington MD Feb 15, 2019 06:51
[2019-02-15 06:58] LABS: BASOPHILS % (AUTO) 0.9 % (0.0-2.0); EOSINOPHILS % (AUTO) 2.2 % (0.0-3.0); HEMOGLOBIN 12.1 G/DL (14.2-18.0); MEAN CORPUSCULAR VOLUME 93 FL (80-99); MONOCYTES % (AUTO) 6.8 % (1.0-10.0); NEUTROPHILS % (AUTO) 74.2 % (45.0-75.0); PLATELET COUNT 348 K/UL (150-450); RED BLOOD COUNT 3.89 M/UL (4.70-6.10); RED CELL DISTRIBUTION WIDTH 13.1 % (11.6-14.8); WHITE BLOOD COUNT 8.8 K/UL (4.8-10.8)
--- NOTE | 2019-02-15 07:23 | NUR ---
HAND-OFF: Report given to RAJI Beltran.
--- NOTE | 2019-02-15 07:24 | NUR ---
NURSE NOTES: Received patient awake, alert and oriented, sitting up comfortably in bed. p200 mattress on bed. IV site at right hand, 22 gauge, saline lock. Bed at lowest level with 3 side rails up. Call light within reach. In no apparent distress at this time. Will continue to monitor.
[2019-02-15 07:32] LABS: ALANINE AMINOTRANSFERASE 145 U/L (12-78); ALBUMIN 2.2 G/DL (3.4-5.0); ALBUMIN/GLOBULIN RATIO 0.6 (1.0-2.7); ALKALINE PHOSPHATASE 49 U/L (46-116); ANION GAP 9 mmol/L (5-15); ASPARTATE AMINO TRANSFERASE 101 U/L (15-37); BILIRUBIN,TOTAL 0.7 MG/DL (0.2-1.0); BLOOD UREA NITROGEN 5 mg/dL (7-18); CALCIUM 8.4 MG/DL (8.5-10.1); CARBON DIOXIDE 26 MMOL/L (21-32); CHLORIDE 108 MMOL/L (98-107); CREATININE 0.5 MG/DL (0.55-1.30); POTASSIUM 3.3 MMOL/L (3.5-5.1); SODIUM 143 MMOL/L (136-145)
[2019-02-15 07:54] VITALS: BP 120/80
[2019-02-15] MEDS: Clarithromycin 500mg tab ORAL SCH ×2 (08:59→20:49)
[2019-02-15] MEDS: Thiamine 100mg tab ORAL SCH (09:00)
[2019-02-15] MEDS: Metoprolol 25mg tab ORAL SCH ×2 (09:00→20:49)
[2019-02-15] MEDS ORDERED: Sodium Chloride for KCL Premix X 4hrs IV SCH (09:00)
[2019-02-15] MEDS ORDERED: Thiamine 100mg tab ORAL SCH (09:00)
--- NOTE | 2019-02-15 09:37 | General Progress Note ---
Assessment/Plan Problem List: (1) GIB (gastrointestinal bleeding) ICD Codes: K92.2 - Gastrointestinal hemorrhage, unspecified SNOMED: 93869767 Status: progressing, unchanged Assessment/Plan: stable H&H full liquid cont protonix treat for HP Subjective ROS Limited/Unobtainable: Yes Allergies: Coded Allergies: No Known Allergies (Unverified , 02/07/19) Objective Last 24 Hour Vital Signs Date Time Temp Pulse Resp B/P (MAP) Pulse Ox O2 Delivery O2 Flow Rate FiO2 02/15/19 09:00 89 120/80 02/15/19 07:54 98.5 89 18 120/80 (93) 98 02/15/19 07:18 96 Room Air 21 02/15/19 04:00 98.7 97 18 127/84 (98) 97 02/15/19 00:00 98.8 78 18 151/69 (96) 97 02/14/19 23:07 Room Air 02/14/19 20:14 88 145/65 02/14/19 20:00 98.2 91 18 158/71 (100) 97 02/14/19 19:50 96 Room Air 21 02/14/19 18:04 97.8 88 18 145/65 (91) 97 02/14/19 17:16 86 02/14/19 16:00 98.0 85 18 158/74 (102) 98 02/14/19 16:00 Nasal Cannula 2.0 02/14/19 16:00 2.0 02/14/19 13:06 88 02/14/19 13:01 92 159/78 02/14/19 12:03 159/78 02/14/19 11:58 Nasal Cannula 2.0 02/14/19 11:58 2.0 02/14/19 11:49 97.9 92 18 159/78 (105) 97 Intake and Output 02/14/19 02/15/19 19:00 07:00 Output Total 200 ml Balance -200 ml Output Urine Total 200 ml # Voids 4 Laboratory Tests 02/15/19 06:03: White Blood Count 8.8, Red Blood Count 3.89L, Hemoglobin 12.1L, Hematocrit 36.0L , Mean Corpuscular Volume 93, Mean Corpuscular Hemoglobin 31.2H, Mean Corpuscular Hemoglobin Concent 33.6, Red Cell Distribution Width 13.1, Platelet Count 348, Mean Platelet Volume 5.0L, Neutrophils (%) (Auto) 74.2, Lymphocytes ( %) (Auto) 16.0L, Monocytes (%) (Auto) 6.8, Eosinophils (%) (Auto) 2.2, Basophils (%) (Auto) 0.9, Sodium Level 143, Potassium Level 3.3L, Chloride Level 108H, Carbon Dioxide Level 26, Anion Gap 9, Blood Urea Nitrogen 5L, Creatinine 0.5L, Estimat Glomerular Filtration Rate , Glucose Level 110H, Uric Acid 1.4L, Calcium Level 8.4L, Phosphorus Level 3.0, Magnesium Level 2.0, Total Bilirubin 0.7, Aspartate Amino Transf (AST/SGOT) 101H, Alanine Aminotransferase (ALT/SGPT) 145H, Alkaline Phosphatase 49, Total Protein 5.9L, Albumin 2.2L, Globulin 3.7, Albumin/Globulin Ratio 0.6L Height (Feet): 5 Height (Inches): 5.00 Weight (Pounds): 150 General Appearance: alert EENT: normal ENT inspection Neck: supple Cardiovascular: normal rate Respiratory/Chest: lungs clear Abdomen: normal bowel sounds, non tender, soft Extremities: non-tender Kj Conn MD Feb 15, 2019 09:37
[2019-02-15 12:00] VITALS: BP 118/77
--- NOTE | 2019-02-15 13:30 | NUR ---
NURSE NOTES: Per case management, patient is set to be discharged. Upon assessing ambulation with the charge nurse, patient was able to move himself to the side of the bed with assistance. Patient stated that he was dizzy when sitting at edge of bed. Patient was allowed time to rest prior to standing. Patient was able to stand but was shaking and unsteady, was exerting himself in order to stay on his feet. When asked to take a side step, patient stated that he could not step and that he felt that he was going to fall. Patient was directed to sit back down and was assisted back into the bed. Dr. Gee notified. Discharge was postponed until tomorrow
--- NOTE | 2019-02-15 13:36 | Nephrology Progress Note ---
Assessment/Plan Problem List: (1) ARF (acute renal failure) (2) Dehydration (3) Acute respiratory failure (4) Esophageal varices (5) GIB (gastrointestinal bleeding) Assessment Acute renal failure , Cr lower now intubated Dehydration Hyperglycemia high Lactate level esophageal bleed GI bleed . Plan tolerating full liquid- switch meds to po as possible- to med surg K and Phos and mag supplement as needed per GI- Monitor lytes and renal parameters Subjective ROS Limited/Unobtainable: No Constitutional: Reports: malaise Objective Objective Last 24 Hour Vital Signs Date Time Temp Pulse Resp B/P (MAP) Pulse Ox O2 Delivery O2 Flow Rate FiO2 02/15/19 12:00 98.3 84 18 118/77 (91) 97 02/15/19 09:00 89 120/80 02/15/19 09:00 Room Air 02/15/19 07:54 98.5 89 18 120/80 (93) 98 02/15/19 07:18 96 Room Air 21 02/15/19 04:00 98.7 97 18 127/84 (98) 97 02/15/19 00:00 98.8 78 18 151/69 (96) 97 02/14/19 23:07 Room Air 02/14/19 20:14 88 145/65 02/14/19 20:00 98.2 91 18 158/71 (100) 97 02/14/19 19:50 96 Room Air 21 02/14/19 18:04 97.8 88 18 145/65 (91) 97 02/14/19 17:16 86 02/14/19 16:00 98.0 85 18 158/74 (102) 98 02/14/19 16:00 Nasal Cannula 2.0 02/14/19 16:00 2.0 Intake and Output 02/14/19 02/15/19 19:00 07:00 Output Total 200 ml Balance -200 ml Output Urine Total 200 ml # Voids 4 Laboratory Tests 02/15/19 06:03: White Blood Count 8.8, Red Blood Count 3.89L, Hemoglobin 12.1L, Hematocrit 36.0L , Mean Corpuscular Volume 93, Mean Corpuscular Hemoglobin 31.2H, Mean Corpuscular Hemoglobin Concent 33.6, Red Cell Distribution Width 13.1, Platelet Count 348, Mean Platelet Volume 5.0L, Neutrophils (%) (Auto) 74.2, Lymphocytes ( %) (Auto) 16.0L, Monocytes (%) (Auto) 6.8, Eosinophils (%) (Auto) 2.2, Basophils (%) (Auto) 0.9, Sodium Level 143, Potassium Level 3.3L, Chloride Level 108H, Carbon Dioxide Level 26, Anion Gap 9, Blood Urea Nitrogen 5L, Creatinine 0.5L, Estimat Glomerular Filtration Rate , Glucose Level 110H, Uric Acid 1.4L, Calcium Level 8.4L, Phosphorus Level 3.0, Magnesium Level 2.0, Total Bilirubin 0.7, Aspartate Amino Transf (AST/SGOT) 101H, Alanine Aminotransferase (ALT/SGPT) 145H, Alkaline Phosphatase 49, Total Protein 5.9L, Albumin 2.2L, Globulin 3.7, Albumin/Globulin Ratio 0.6L Height (Feet): 5 Height (Inches): 5.00 Weight (Pounds): 150 General Appearance: no apparent distress Objective no change Arturo Cruz MD Feb 15, 2019 13:36
--- NOTE | 2019-02-15 14:13 | Infectious Diseases Prog Note ---
Assessment/Plan Assessment/Plan IMPRESSION: Sepsis, systemic inflammatory response syndrome, Leukocytosis GI bleeding Duodenal ulcer. Uncontrolled DM Lactic acidosis, Acute renal failure improving. Onychomycosis and tinea pedis, anemia, received blood transfusion, Elevated transaminase level. Acute respiratory failure resolved H. pylori infection RECOMMENDATION: continue topical clotrimazole Continue Amoxicillin, Biaxin & Protonix Subjective ROS Limited/Unobtainable: Yes Respiratory: Reports: no symptoms Gastrointestinal/Abdominal: Reports: no symptoms Allergies: Coded Allergies: No Known Allergies (Unverified , 02/07/19) Objective Vital Signs Last 24 Hour Vital Signs Date Time Temp Pulse Resp B/P (MAP) Pulse Ox O2 Delivery O2 Flow Rate FiO2 02/15/19 12:00 98.3 84 18 118/77 (91) 97 02/15/19 09:00 89 120/80 02/15/19 09:00 Room Air 02/15/19 07:54 98.5 89 18 120/80 (93) 98 02/15/19 07:18 96 Room Air 21 02/15/19 04:00 98.7 97 18 127/84 (98) 97 02/15/19 00:00 98.8 78 18 151/69 (96) 97 02/14/19 23:07 Room Air 02/14/19 20:14 88 145/65 02/14/19 20:00 98.2 91 18 158/71 (100) 97 02/14/19 19:50 96 Room Air 21 02/14/19 18:04 97.8 88 18 145/65 (91) 97 02/14/19 17:16 86 02/14/19 16:00 98.0 85 18 158/74 (102) 98 02/14/19 16:00 Nasal Cannula 2.0 02/14/19 16:00 2.0 Height (Feet): 5 Height (Inches): 5.00 Weight (Pounds): 150 HEENT: mucous membranes moist Respiratory/Chest: lungs clear Cardiovascular: normal rate Abdomen: soft, non tender Extremities: no edema Neurologic/Psychiatric: alert, responsive Laboratory Tests Test 02/15/19 06:03 White Blood Count 8.8 K/UL (4.8-10.8) Red Blood Count 3.89 M/UL (4.70-6.10) L Hemoglobin 12.1 G/DL (14.2-18.0) L Hematocrit 36.0 % (42.0-52.0) L Mean Corpuscular Volume 93 FL (80-99) Mean Corpuscular Hemoglobin 31.2 PG (27.0-31.0) H Mean Corpuscular Hemoglobin Concent 33.6 G/DL (32.0-36.0) Red Cell Distribution Width 13.1 % (11.6-14.8) Platelet Count 348 K/UL (150-450) Mean Platelet Volume 5.0 FL (6.5-10.1) L Neutrophils (%) (Auto) 74.2 % (45.0-75.0) Lymphocytes (%) (Auto) 16.0 % (20.0-45.0) L Monocytes (%) (Auto) 6.8 % (1.0-10.0) Eosinophils (%) (Auto) 2.2 % (0.0-3.0) Basophils (%) (Auto) 0.9 % (0.0-2.0) Sodium Level 143 MMOL/L (136-145) Potassium Level 3.3 MMOL/L (3.5-5.1) L Chloride Level 108 MMOL/L (98-107) H Carbon Dioxide Level 26 MMOL/L (21-32) Anion Gap 9 mmol/L (5-15) Blood Urea Nitrogen 5 mg/dL (7-18) L Creatinine 0.5 MG/DL (0.55-1.30) L Estimat Glomerular Filtration Rate mL/min (>60) Glucose Level 110 MG/DL (74-106) H Uric Acid 1.4 MG/DL (2.6-7.2) L Calcium Level 8.4 MG/DL (8.5-10.1) L Phosphorus Level 3.0 MG/DL (2.5-4.9) Magnesium Level 2.0 MG/DL (1.8-2.4) Total Bilirubin 0.7 MG/DL (0.2-1.0) Aspartate Amino Transf (AST/SGOT) 101 U/L (15-37) H Alanine Aminotransferase (ALT/SGPT) 145 U/L (12-78) H Alkaline Phosphatase 49 U/L (46-116) Total Protein 5.9 G/DL (6.4-8.2) L Albumin 2.2 G/DL (3.4-5.0) L Globulin 3.7 g/dL Albumin/Globulin Ratio 0.6 (1.0-2.7) L Current Medications Medications (Trade) Dose Ordered Sig/Manish Route PRN Reason Start Time Stop Time Status Last Admin Dose Admin Acetaminophen (Tylenol) 650 mg Q6H PRN ORAL Mild Pain/Temp > 100.5 02/14/19 18:30 03/10/19 18:29 Amoxicillin (Amoxil) 1,000 mg BID@0630,1630 ORAL 02/15/19 06:30 02/21/19 16:29 02/15/19 05:51 Clarithromycin (Biaxin) 500 mg EVERY 12 HOURS ORAL 02/14/19 21:00 02/21/19 09:59 02/15/19 08:59 Clotrimazole (Lotrimin) 1 applic THREE TIMES A DAY TOPIC 02/14/19 18:00 03/10/19 17:59 02/15/19 13:01 Dextrose (Dextrose 50%) 25 ml Q30M PRN IV Hypoglycemia 02/14/19 08:30 03/10/19 08:29 Dextrose (Dextrose 50%) 50 ml Q30M PRN IV Hypoglycemia 02/14/19 18:30 03/10/19 18:29 Hydralazine HCl (Apresoline) 25 mg Q4H PRN ORAL bp over 160 syst 02/14/19 18:30 03/16/19 18:29 Insulin Aspart (NovoLOG) AC+HS SUBQ 02/14/19 21:00 03/10/19 11:59 Lorazepam (Ativan 2mg/ml 1ml) 1 mg Q4H PRN IV For Anxiety 02/14/19 18:30 02/15/19 18:29 Metoprolol Tartrate (Lopressor) 25 mg Q12HR ORAL 02/14/19 21:00 03/16/19 20:59 02/15/19 09:00 Pantoprazole (Protonix) 40 mg BID ORAL 02/15/19 09:00 03/17/19 08:59 02/15/19 09:00 Thiamine HCl (Vitamin B1) 100 mg DAILY ORAL 02/15/19 09:00 03/17/19 08:59 02/15/19 09:00 Fazal Basilio MD Feb 15, 2019 14:13
--- NOTE | 2019-02-15 15:15 | Surgery Progress Note ---
Surgery Progress Note Subjective Symptoms: improved, tolerating diet, passing flatus, BM Objective Last 24 Hour Vital Signs Date Time Temp Pulse Resp B/P (MAP) Pulse Ox O2 Delivery O2 Flow Rate FiO2 02/15/19 12:00 98.3 84 18 118/77 (91) 97 02/15/19 09:00 89 120/80 02/15/19 09:00 Room Air 02/15/19 07:54 98.5 89 18 120/80 (93) 98 02/15/19 07:18 96 Room Air 21 02/15/19 04:00 98.7 97 18 127/84 (98) 97 02/15/19 00:00 98.8 78 18 151/69 (96) 97 02/14/19 23:07 Room Air 02/14/19 20:14 88 145/65 02/14/19 20:00 98.2 91 18 158/71 (100) 97 02/14/19 19:50 96 Room Air 21 02/14/19 18:04 97.8 88 18 145/65 (91) 97 02/14/19 17:16 86 02/14/19 16:00 98.0 85 18 158/74 (102) 98 02/14/19 16:00 Nasal Cannula 2.0 02/14/19 16:00 2.0 I&O Intake and Output 02/14/19 02/15/19 19:00 07:00 Output Total 200 ml Balance -200 ml Output Urine Total 200 ml # Voids 4 Cardiovascular: RSR Respiratory: clear Abdomen: soft, distended, non-tender, present bowel sounds Extremities: no cyanosis Laboratory Tests Test 02/15/19 06:03 White Blood Count 8.8 K/UL (4.8-10.8) Red Blood Count 3.89 M/UL (4.70-6.10) L Hemoglobin 12.1 G/DL (14.2-18.0) L Hematocrit 36.0 % (42.0-52.0) L Mean Corpuscular Volume 93 FL (80-99) Mean Corpuscular Hemoglobin 31.2 PG (27.0-31.0) H Mean Corpuscular Hemoglobin Concent 33.6 G/DL (32.0-36.0) Red Cell Distribution Width 13.1 % (11.6-14.8) Platelet Count 348 K/UL (150-450) Mean Platelet Volume 5.0 FL (6.5-10.1) L Neutrophils (%) (Auto) 74.2 % (45.0-75.0) Lymphocytes (%) (Auto) 16.0 % (20.0-45.0) L Monocytes (%) (Auto) 6.8 % (1.0-10.0) Eosinophils (%) (Auto) 2.2 % (0.0-3.0) Basophils (%) (Auto) 0.9 % (0.0-2.0) Sodium Level 143 MMOL/L (136-145) Potassium Level 3.3 MMOL/L (3.5-5.1) L Chloride Level 108 MMOL/L (98-107) H Carbon Dioxide Level 26 MMOL/L (21-32) Anion Gap 9 mmol/L (5-15) Blood Urea Nitrogen 5 mg/dL (7-18) L Creatinine 0.5 MG/DL (0.55-1.30) L Estimat Glomerular Filtration Rate mL/min (>60) Glucose Level 110 MG/DL (74-106) H Uric Acid 1.4 MG/DL (2.6-7.2) L Calcium Level 8.4 MG/DL (8.5-10.1) L Phosphorus Level 3.0 MG/DL (2.5-4.9) Magnesium Level 2.0 MG/DL (1.8-2.4) Total Bilirubin 0.7 MG/DL (0.2-1.0) Aspartate Amino Transf (AST/SGOT) 101 U/L (15-37) H Alanine Aminotransferase (ALT/SGPT) 145 U/L (12-78) H Alkaline Phosphatase 49 U/L (46-116) Total Protein 5.9 G/DL (6.4-8.2) L Albumin 2.2 G/DL (3.4-5.0) L Globulin 3.7 g/dL Albumin/Globulin Ratio 0.6 (1.0-2.7) L Plan Problems: (1) GIB (gastrointestinal bleeding) Assessment & Plan: 69-year-old male with acute gastrointestinal hemorrhage secondary to large duodenal ulcer. Patient had endoscopy with hemostasis just now identified a large ulcer with potential to rebleed. Need to control patient's hypertension and allow for even permissive hypotension if necessary h/h stable overall doing better labs stable now exam stable Will follow and be available in case patient rebleeds at which time he will require an exploration thank you for allowing me to participate in patient's care will follow with recommendations Adelso Baumann Feb 15, 2019 15:15
--- NOTE | 2019-02-15 15:43 | Cardiac Electrophysiology PN ---
Assessment/Plan Assessment/Plan 1. Sinus tachycardia due to diabetic ketoacidosis and acute GI bleed. No evidence of atrial fibrillation or atrial flutter or any SVT. EF 60%. In NSR today 2. S/P Respiratory failure, Extubated 3. Acute GI bleed, status post endoscopy by Dr. Conn that showed duodenal ulcer. Biopsy was performed. Patient received 4 units of blood transfusion. The patient had large duodenal bulb ulcer with hemorrhage. No indication for surgery at this time per Dr. Baumann 4. Diabetic ketoacidosis, on insulin drip. 5. Accelerated hypertension. On IV hydralazine. PRASHANTH RN DC home pending Subjective Subjective Transferred to [facility]. No CP or SOB Objective Last 24 Hour Vital Signs Date Time Temp Pulse Resp B/P (MAP) Pulse Ox O2 Delivery O2 Flow Rate FiO2 02/15/19 12:00 98.3 84 18 118/77 (91) 97 02/15/19 09:00 89 120/80 02/15/19 09:00 Room Air 02/15/19 07:54 98.5 89 18 120/80 (93) 98 02/15/19 07:18 96 Room Air 21 02/15/19 04:00 98.7 97 18 127/84 (98) 97 02/15/19 00:00 98.8 78 18 151/69 (96) 97 02/14/19 23:07 Room Air 02/14/19 20:14 88 145/65 02/14/19 20:00 98.2 91 18 158/71 (100) 97 02/14/19 19:50 96 Room Air 21 02/14/19 18:04 97.8 88 18 145/65 (91) 97 02/14/19 17:16 86 02/14/19 16:00 98.0 85 18 158/74 (102) 98 02/14/19 16:00 Nasal Cannula 2.0 02/14/19 16:00 2.0 Intake and Output 02/14/19 02/15/19 19:00 07:00 Output Total 200 ml Balance -200 ml Output Urine Total 200 ml # Voids 4 Laboratory Tests Test 02/15/19 06:03 White Blood Count 8.8 K/UL (4.8-10.8) Red Blood Count 3.89 M/UL (4.70-6.10) L Hemoglobin 12.1 G/DL (14.2-18.0) L Hematocrit 36.0 % (42.0-52.0) L Mean Corpuscular Volume 93 FL (80-99) Mean Corpuscular Hemoglobin 31.2 PG (27.0-31.0) H Mean Corpuscular Hemoglobin Concent 33.6 G/DL (32.0-36.0) Red Cell Distribution Width 13.1 % (11.6-14.8) Platelet Count 348 K/UL (150-450) Mean Platelet Volume 5.0 FL (6.5-10.1) L Neutrophils (%) (Auto) 74.2 % (45.0-75.0) Lymphocytes (%) (Auto) 16.0 % (20.0-45.0) L Monocytes (%) (Auto) 6.8 % (1.0-10.0) Eosinophils (%) (Auto) 2.2 % (0.0-3.0) Basophils (%) (Auto) 0.9 % (0.0-2.0) Sodium Level 143 MMOL/L (136-145) Potassium Level 3.3 MMOL/L (3.5-5.1) L Chloride Level 108 MMOL/L (98-107) H Carbon Dioxide Level 26 MMOL/L (21-32) Anion Gap 9 mmol/L (5-15) Blood Urea Nitrogen 5 mg/dL (7-18) L Creatinine 0.5 MG/DL (0.55-1.30) L Estimat Glomerular Filtration Rate mL/min (>60) Glucose Level 110 MG/DL (74-106) H Uric Acid 1.4 MG/DL (2.6-7.2) L Calcium Level 8.4 MG/DL (8.5-10.1) L Phosphorus Level 3.0 MG/DL (2.5-4.9) Magnesium Level 2.0 MG/DL (1.8-2.4) Total Bilirubin 0.7 MG/DL (0.2-1.0) Aspartate Amino Transf (AST/SGOT) 101 U/L (15-37) H Alanine Aminotransferase (ALT/SGPT) 145 U/L (12-78) H Alkaline Phosphatase 49 U/L (46-116) Total Protein 5.9 G/DL (6.4-8.2) L Albumin 2.2 G/DL (3.4-5.0) L Globulin 3.7 g/dL Albumin/Globulin Ratio 0.6 (1.0-2.7) L Objective HEAD AND NECK: No JVD. LUNGS: Decreased breath sounds. CARDIOVASCULAR: Nl S1 and S2 with no gallop. ABDOMEN: Soft. EXTREMITIES: No pitting edema poor feet hygiene. Matthew Kent MD Feb 15, 2019 15:43
--- NOTE | 2019-02-15 15:54 | NUR ---
DISCHARGE PLANNING: NOTE DC ORDER CHANGED TO 02/16/2019. CM SPOKE TO NURSING. PER NURSING PATIENT IS UNSTEADY ON HIS FEET. SEE P.T. NOTE CM MET WITH PATIENT AT THE BEDSIDE. HE STATED THAT HE DOES NOT HAVE KEYS TO HIS RENTED ROOM. HE STATED THAT HIS GIRLFRIEND HAS THE KEYS TO HIS ROOM AND IS IN [place]. HE DOES NOT KNOW WHO THE [employer] OR [employer] WORKER HELPER OF THE PROPERTY IS BECAUSE HIS GIRLFRIEND PAYS THE RENT. THERE ARE NO OTHER TENANTS/FRIENDS WHO HAVE KEYS TO HIS APARTMENT OR WHO COULD CONTACT THE [employer] TO GAIN ACCESS TO HIS LOCKED ROOM. MAIKOL CALLED ALL THE NUMBERS PROVIDED BY W (NO ADDITIONAL NUMBERS PROVIDED BY PATIENT) [phone] Angélica [phone] Nicole Kelley [phone] She Javier [phone] Parris Harrell [phone]
[2019-02-15 16:00] VITALS: BP 125/68
--- NOTE | 2019-02-15 18:50 | Hematology/Onc Progress Note ---
Assessment/Plan Assessment/Plan # Anemia due to underlying gi bleed, sp egd which showed duodenal ulceration, failed hemostasis --> continue ppi --> coags slightly elevated, nsider vit K if persistent bleeding --> transfuse if hgb <7 --> no indication for surgery --> trend hgb 13-->11.1-->11->12 --> if hgb downtrends may need ex lap per surg # Leukocytosis with Sepsis, systemic inflammatory response syndrome --> monitor for improvement --> is on abx, zosyn per id --> per id recs --> wbc 16--.14-->14 # DKA with Uncontrolled DM --> on insulin sliding scale # Lactic acidosis, --> trend as needed, on ivf, thiamine, folate # Acute renal failure improving. --> sp fluids # Onychomycosis and tinea pedis, --> podiatry consulted # Elevated transaminase level due to etoh use --> trend as needed # Acute respiratory failure --> now extubated, breathing better --> on 2l NC The timing of this note does not necessarily reflect the time of the patient was seen. GREATLY APPRECIATE CONSULTATION. Subjective Constitutional: Denies: no symptoms, chills, fever, malaise, weakness, other HEENT: Denies: no symptoms, eye pain, blurred vision, tearing, double vision, ear pain, ear discharge, nose pain, nose congestion, throat pain, throat swelling, mouth pain, mouth swelling, other Cardiovascular: Denies: no symptoms, chest pain, edema, irregular heart rate, lightheadedness, palpitations, syncope, other Respiratory: Denies: no symptoms, cough, shortness of breath, SOB with excertion, SOB at rest, sputum, wheezing, other Gastrointestinal/Abdominal: Denies: no symptoms, abdomen distended, abdominal pain, black stools, tarry stools, blood in stool, constipated, diarrhea, difficulty swallowing, nausea, poor appetite, poor fluid intake, rectal bleeding , vomiting, other Genitourinary: Denies: no symptoms, burning, discharge, frequency, flank pain, hematuria, incontinence, pain, urgency, other Neurologic/Psychiatric: Denies: no symptoms, anxiety, depressed, emotional problems, headache, numbness, paresthesia, pre-existing deficit, seizure, tingling, tremors, weakness, other Endocrine: Denies: no symptoms, excessive sweating, flushing, intolerance to cold, intolerance to heat, increased hunger, increased thirst, increased urine, unexplained weight gain, unexplained weight loss, other Allergies: Coded Allergies: No Known Allergies (Unverified , 02/07/19) Subjective 02/09: remains intubated, on vent, able to respond, in turkish, to commands weaning today, h/h reviewed 02/10: icu, extubated, labs reviewed 02/12: on 2l nc, h/h reviewed, no bleeding in sdu 02/13: on nc, no events, no blding, a+o x4 02/15: discharged, passing gas, no f/c, no major changes Objective Objective Current Medications Medications (Trade) Dose Ordered Sig/Manish Route PRN Reason Start Time Stop Time Status Last Admin Dose Admin Acetaminophen (Tylenol) 650 mg Q6H PRN ORAL Mild Pain/Temp > 100.5 02/14/19 18:30 03/10/19 18:29 Amoxicillin (Amoxil) 1,000 mg BID@0630,1630 ORAL 02/15/19 06:30 02/21/19 16:29 02/15/19 16:58 Clarithromycin (Biaxin) 500 mg EVERY 12 HOURS ORAL 02/14/19 21:00 02/21/19 09:59 02/15/19 08:59 Clotrimazole (Lotrimin) 1 applic THREE TIMES A DAY TOPIC 02/14/19 18:00 03/10/19 17:59 02/15/19 13:01 Dextrose (Dextrose 50%) 25 ml Q30M PRN IV Hypoglycemia 02/14/19 08:30 03/10/19 08:29 Dextrose (Dextrose 50%) 50 ml Q30M PRN IV Hypoglycemia 02/14/19 18:30 03/10/19 18:29 Hydralazine HCl (Apresoline) 25 mg Q4H PRN ORAL bp over 160 syst 02/14/19 18:30 03/16/19 18:29 Insulin Aspart (NovoLOG) AC+HS SUBQ 02/14/19 21:00 03/10/19 11:59 Metoprolol Tartrate (Lopressor) 25 mg Q12HR ORAL 02/14/19 21:00 03/16/19 20:59 02/15/19 09:00 Pantoprazole (Protonix) 40 mg BID ORAL 02/15/19 09:00 03/17/19 08:59 02/15/19 16:57 Thiamine HCl (Vitamin B1) 100 mg DAILY ORAL 02/15/19 09:00 03/17/19 08:59 02/15/19 09:00 Last 24 Hour Vital Signs Date Time Temp Pulse Resp B/P (MAP) Pulse Ox O2 Delivery O2 Flow Rate FiO2 02/15/19 16:00 98.6 81 19 125/68 (87) 98 02/15/19 12:00 98.3 84 18 118/77 (91) 97 02/15/19 09:00 89 120/80 02/15/19 09:00 Room Air 02/15/19 07:54 98.5 89 18 120/80 (93) 98 02/15/19 07:18 96 Room Air 21 02/15/19 04:00 98.7 97 18 127/84 (98) 97 02/15/19 00:00 98.8 78 18 151/69 (96) 97 02/14/19 23:07 Room Air 02/14/19 20:14 88 145/65 02/14/19 20:00 98.2 91 18 158/71 (100) 97 02/14/19 19:50 96 Room Air 21 02/14/19 18:04 97.8 88 18 145/65 (91) 97 02/14/19 17:16 86 02/14/19 16:00 98.0 85 18 158/74 (102) 98 02/14/19 16:00 Nasal Cannula 2.0 02/14/19 16:00 2.0 02/14/19 13:06 88 02/14/19 13:01 92 159/78 02/14/19 12:03 159/78 02/14/19 11:58 Nasal Cannula 2.0 02/14/19 11:58 2.0 02/14/19 11:49 97.9 92 18 159/78 (105) 97 02/14/19 08:00 Nasal Cannula 2.0 02/14/19 08:00 2.0 02/14/19 08:00 95 02/14/19 07:56 98.2 101 18 155/94 (114) 99 02/14/19 07:03 98 Nasal Cannula 2.0 28 02/14/19 05:44 90 02/14/19 05:34 148/73 02/14/19 05:31 93 02/14/19 04:00 96 02/14/19 04:00 98.0 84 18 145/68 (93) 99 02/14/19 04:00 Nasal Cannula 2.0 02/14/19 04:00 2.0 02/14/19 00:00 Nasal Cannula 2.0 02/14/19 00:00 2.0 02/13/19 23:55 98.2 89 18 142/63 (89) 100 02/13/19 23:46 94 02/13/19 23:43 145/62 02/13/19 23:27 91 02/13/19 22:30 88 143/75 (97) 02/13/19 21:54 112 02/13/19 21:52 98 154/78 02/13/19 21:48 93 02/13/19 21:20 154/78 (103) 02/13/19 20:00 2.0 02/13/19 20:00 116 02/13/19 20:00 Nasal Cannula 2.0 02/13/19 20:00 99.0 94 18 169/82 (111) 100 02/13/19 19:25 99 Nasal Cannula 2.0 28 02/13/19 19:24 101 18 99 Nasal Cannula 2.0 28 Intake and Output 02/14/19 02/15/19 19:00 07:00 Output Total 200 ml Balance -200 ml Output Urine Total 200 ml # Voids 4 Labs Test 02/14/19 03:20 02/14/19 03:50 02/15/19 06:03 Phosphorus Level 2.7 MG/DL (2.5-4.9) 3.0 MG/DL (2.5-4.9) Magnesium Level 2.0 MG/DL (1.8-2.4) 2.0 MG/DL (1.8-2.4) Total Bilirubin 0.6 MG/DL (0.2-1.0) 0.7 MG/DL (0.2-1.0) Direct Bilirubin 0.1 MG/DL (0.0-0.3) Aspartate Amino Transf (AST/SGOT) 171 U/L (15-37) 101 U/L (15-37) Alanine Aminotransferase (ALT/SGPT) 188 U/L (12-78) 145 U/L (12-78) Alkaline Phosphatase 58 U/L (46-116) 49 U/L (46-116) Total Protein 5.5 G/DL (6.4-8.2) 5.9 G/DL (6.4-8.2) Albumin 2.0 G/DL (3.4-5.0) 2.2 G/DL (3.4-5.0) White Blood Count 11.5 K/UL (4.8-10.8) 8.8 K/UL (4.8-10.8) Red Blood Count 3.58 M/UL (4.70-6.10) 3.89 M/UL (4.70-6.10) Hemoglobin 11.1 G/DL (14.2-18.0) 12.1 G/DL (14.2-18.0) Hematocrit 33.0 % (42.0-52.0) 36.0 % (42.0-52.0) Mean Corpuscular Volume 92 FL (80-99) 93 FL (80-99) Mean Corpuscular Hemoglobin 31.0 PG (27.0-31.0) 31.2 PG (27.0-31.0) Mean Corpuscular Hemoglobin Concent 33.7 G/DL (32.0-36.0) 33.6 G/DL (32.0-36.0) Red Cell Distribution Width 12.7 % (11.6-14.8) 13.1 % (11.6-14.8) Platelet Count 297 K/UL (150-450) 348 K/UL (150-450) Mean Platelet Volume 4.9 FL (6.5-10.1) 5.0 FL (6.5-10.1) Neutrophils (%) (Auto) 77.1 % (45.0-75.0) 74.2 % (45.0-75.0) Lymphocytes (%) (Auto) 14.3 % (20.0-45.0) 16.0 % (20.0-45.0) Monocytes (%) (Auto) 6.6 % (1.0-10.0) 6.8 % (1.0-10.0) Eosinophils (%) (Auto) 1.4 % (0.0-3.0) 2.2 % (0.0-3.0) Basophils (%) (Auto) 0.6 % (0.0-2.0) 0.9 % (0.0-2.0) Sodium Level 143 MMOL/L (136-145) 143 MMOL/L (136-145) Potassium Level 2.9 MMOL/L (3.5-5.1) 3.3 MMOL/L (3.5-5.1) Chloride Level 107 MMOL/L (98-107) 108 MMOL/L (98-107) Carbon Dioxide Level 28 MMOL/L (21-32) 26 MMOL/L (21-32) Anion Gap 8 mmol/L (5-15) 9 mmol/L (5-15) Blood Urea Nitrogen 3 mg/dL (7-18) 5 mg/dL (7-18) Creatinine 0.5 MG/DL (0.55-1.30) 0.5 MG/DL (0.55-1.30) Estimat Glomerular Filtration Rate mL/min (>60) mL/min (>60) Glucose Level 131 MG/DL (74-106) 110 MG/DL (74-106) Calcium Level 8.1 MG/DL (8.5-10.1) 8.4 MG/DL (8.5-10.1) Uric Acid 1.4 MG/DL (2.6-7.2) Globulin 3.7 g/dL Albumin/Globulin Ratio 0.6 (1.0-2.7) Height (Feet): 5 Height (Inches): 5.00 Weight (Pounds): 150 Objective General Appearance: no acute distress HEENT: mucous membranes moist Respiratory/Chest: lungs clear, 2l nc Cardiovascular: normal rate Abdomen: soft, non tender Extremities: no edema Neurologic/Psychiatric: alert, responsive Hal Smith MD Feb 15, 2019 18:49
--- NOTE | 2019-02-15 19:30 | NUR ---
HAND-OFF: Report given to RAJI Mcbride.
[2019-02-15 20:00] VITALS: BP 141/73
--- NOTE | 2019-02-15 20:00 | NUR ---
NURSE NOTES: Patient received, asleep, no acute distress, Call light in reach, will continue plan of care.
[2019-02-15] MEDS ORDERED: D5 1/2NS 1000ml IV ONE ×2 (20:33→20:34)
[2019-02-15] MEDS ORDERED: NS 275ml ONE (20:34)
--- NOTE | 2019-02-15 21:54 | General Progress Note ---
Assessment/Plan Problem List: (1) ARF (acute renal failure) ICD Codes: N17.9 - Acute kidney failure, unspecified SNOMED: 54807885 Qualifiers: Qualified Codes: N17.9 - Acute kidney failure, unspecified (2) Sepsis ICD Codes: A41.9 - Sepsis, unspecified organism SNOMED: 49349208, 89297079 Qualifiers: Qualified Codes: A41.9 - Sepsis, unspecified organism; R65.20 - Severe sepsis without septic shock; N17.9 - Acute kidney failure, unspecified (3) Lactic acidosis ICD Codes: E87.2 - Acidosis SNOMED: 05538405, 35130072 (4) Anemia ICD Codes: D64.9 - Anemia, unspecified SNOMED: 844759355 (5) DKA (diabetic ketoacidoses) ICD Codes: E11.10 - Type 2 diabetes mellitus with ketoacidosis without coma SNOMED: 813964693, 41895504 Qualifiers: Qualified Codes: E13.10 - Other specified diabetes mellitus with ketoacidosis without coma (6) GIB (gastrointestinal bleeding) ICD Codes: K92.2 - Gastrointestinal hemorrhage, unspecified SNOMED: 46285313 (7) Acute respiratory failure ICD Codes: J96.00 - Acute respiratory failure, unspecified whether with hypoxia or hypercapnia SNOMED: 01982794 (8) Dehydration ICD Codes: E86.0 - Dehydration SNOMED: 91059396, 66789229 Status: progressing, unchanged Assessment/Plan: dka pt assessment for safety afebrile sugar improving gi bleeding clear liquid check h/h Subjective ROS Limited/Unobtainable: Yes Allergies: Coded Allergies: No Known Allergies (Unverified , 02/07/19) Objective Last 24 Hour Vital Signs Date Time Temp Pulse Resp B/P (MAP) Pulse Ox O2 Delivery O2 Flow Rate FiO2 02/15/19 21:03 Room Air 02/15/19 20:49 91 141/73 02/15/19 20:00 98.3 91 20 141/73 (95) 97 02/15/19 19:54 97 Room Air 21 02/15/19 16:00 98.6 81 19 125/68 (87) 98 02/15/19 12:00 98.3 84 18 118/77 (91) 97 02/15/19 09:00 89 120/80 02/15/19 09:00 Room Air 02/15/19 07:54 98.5 89 18 120/80 (93) 98 02/15/19 07:18 96 Room Air 21 02/15/19 04:00 98.7 97 18 127/84 (98) 97 02/15/19 00:00 98.8 78 18 151/69 (96) 97 02/14/19 23:07 Room Air Intake and Output 02/14/19 02/15/19 19:00 07:00 Output Total 200 ml Balance -200 ml Output Urine Total 200 ml # Voids 4 Laboratory Tests 02/15/19 06:03: White Blood Count 8.8, Red Blood Count 3.89L, Hemoglobin 12.1L, Hematocrit 36.0L , Mean Corpuscular Volume 93, Mean Corpuscular Hemoglobin 31.2H, Mean Corpuscular Hemoglobin Concent 33.6, Red Cell Distribution Width 13.1, Platelet Count 348, Mean Platelet Volume 5.0L, Neutrophils (%) (Auto) 74.2, Lymphocytes ( %) (Auto) 16.0L, Monocytes (%) (Auto) 6.8, Eosinophils (%) (Auto) 2.2, Basophils (%) (Auto) 0.9, Sodium Level 143, Potassium Level 3.3L, Chloride Level 108H, Carbon Dioxide Level 26, Anion Gap 9, Blood Urea Nitrogen 5L, Creatinine 0.5L, Estimat Glomerular Filtration Rate , Glucose Level 110H, Uric Acid 1.4L, Calcium Level 8.4L, Phosphorus Level 3.0, Magnesium Level 2.0, Total Bilirubin 0.7, Aspartate Amino Transf (AST/SGOT) 101H, Alanine Aminotransferase (ALT/SGPT) 145H, Alkaline Phosphatase 49, Total Protein 5.9L, Albumin 2.2L, Globulin 3.7, Albumin/Globulin Ratio 0.6L Height (Feet): 5 Height (Inches): 5.00 Weight (Pounds): 150 Cardiovascular: normal rate Respiratory/Chest: lungs clear Abdomen: soft Harvey Gee MD Feb 15, 2019 21:54
[2019-02-16 00:14] VITALS: BP 128/67
[2019-02-16 04:00] VITALS: BP 155/88
[2019-02-16] MEDS: NovoLOG Insulin Flexpen SUBQ SCH ×4 (05:39→21:11)
--- NOTE | 2019-02-16 07:02 | NUR ---
CASE MANAGEMENT: REVIEW 02/16/2019 SI:DKA. GIB. T 97.8 HR 85 RR 18 B/P 155/88 SATS 98% ON RA NO LABS TODAY IS:PROTONIX IV Q12H VASOTEC IV Q6H ZOSYN IV Q8H THIAMINE IV Q24H MED/SURG
--- NOTE | 2019-02-16 07:16 | NUR ---
HAND-OFF: Report given to Roz ALEGRIA.
[2019-02-16 08:00] VITALS: BP 148/70
[2019-02-16] MEDS: Metoprolol 25mg tab ORAL SCH ×2 (08:38→21:07)
[2019-02-16] MEDS: Clarithromycin 500mg tab ORAL SCH ×2 (08:38→21:06)
[2019-02-16] MEDS: Thiamine 100mg tab ORAL SCH (08:38)
--- NOTE | 2019-02-16 10:42 | Hematology/Onc Progress Note ---
Assessment/Plan Assessment/Plan # Anemia due to underlying gi bleed, sp egd which showed duodenal ulceration, failed hemostasis --> continue ppi --> coags slightly elevated, nsider vit K if persistent bleeding --> transfuse if hgb <7 --> no indication for surgery --> trend hgb 13-->11.1-->11->12 --> if hgb downtrends may need ex lap per surg # Leukocytosis with Sepsis, systemic inflammatory response syndrome --> monitor for improvement --> is on abx, zosyn per id --> per id recs --> wbc 16--.14-->14 # DKA with Uncontrolled DM --> on insulin sliding scale # Lactic acidosis, --> trend as needed, on ivf, thiamine, folate # Acute renal failure improving. --> sp fluids # Onychomycosis and tinea pedis, --> podiatry consulted # Elevated transaminase level due to etoh use --> trend as needed # Acute respiratory failure --> now extubated, breathing better --> on 2l NC The timing of this note does not necessarily reflect the time of the patient was seen. GREATLY APPRECIATE CONSULTATION. Subjective Allergies: Coded Allergies: No Known Allergies (Unverified , 02/07/19) Subjective 02/09: remains intubated, on vent, able to respond, in nigerian, to commands weaning today, h/h reviewed 02/10: icu, extubated, labs reviewed 02/12: on 2l nc, h/h reviewed, no bleeding in sdu 02/13: on nc, no events, no blding, a+o x4 02/15: discharged, passing gas, no f/c, no major changes 02/16: no fever or chills, on abx, resting, no acute events Objective Objective Current Medications Medications (Trade) Dose Ordered Sig/Manish Route PRN Reason Start Time Stop Time Status Last Admin Dose Admin Acetaminophen (Tylenol) 650 mg Q6H PRN ORAL Mild Pain/Temp > 100.5 02/14/19 18:30 03/10/19 18:29 02/16/19 10:10 Amoxicillin (Amoxil) 1,000 mg BID@0630,1630 ORAL 02/15/19 06:30 02/21/19 16:29 02/16/19 05:39 Clarithromycin (Biaxin) 500 mg EVERY 12 HOURS ORAL 02/14/19 21:00 02/21/19 09:59 02/16/19 08:38 Clotrimazole (Lotrimin) 1 applic THREE TIMES A DAY TOPIC 02/14/19 18:00 03/10/19 17:59 02/16/19 08:38 Dextrose (Dextrose 50%) 25 ml Q30M PRN IV Hypoglycemia 02/14/19 08:30 03/10/19 08:29 Dextrose (Dextrose 50%) 50 ml Q30M PRN IV Hypoglycemia 02/14/19 18:30 03/10/19 18:29 Hydralazine HCl (Apresoline) 25 mg Q4H PRN ORAL bp over 160 syst 02/14/19 18:30 03/16/19 18:29 Insulin Aspart (NovoLOG) AC+HS SUBQ 02/14/19 21:00 03/10/19 11:59 Metoprolol Tartrate (Lopressor) 25 mg Q12HR ORAL 02/14/19 21:00 03/16/19 20:59 02/16/19 08:38 Pantoprazole (Protonix) 40 mg BID ORAL 02/15/19 09:00 03/17/19 08:59 02/16/19 08:38 Potassium Chloride (K-Dur) 40 meq DAILY ORAL 02/16/19 10:00 03/18/19 09:59 02/16/19 10:10 Thiamine HCl (Vitamin B1) 100 mg DAILY ORAL 02/15/19 09:00 03/17/19 08:59 02/16/19 08:38 Last 24 Hour Vital Signs Date Time Temp Pulse Resp B/P (MAP) Pulse Ox O2 Delivery O2 Flow Rate FiO2 02/16/19 08:38 85 155/88 02/16/19 08:00 97.2 85 20 148/70 (96) 97 02/16/19 04:00 97.8 85 18 155/88 (110) 98 02/16/19 00:14 98.9 83 19 128/67 (87) 98 02/15/19 21:03 Room Air 02/15/19 20:49 91 141/73 02/15/19 20:00 98.3 91 20 141/73 (95) 97 02/15/19 19:54 97 Room Air 21 02/15/19 16:00 98.6 81 19 125/68 (87) 98 02/15/19 12:00 98.3 84 18 118/77 (91) 97 02/15/19 09:00 89 120/80 02/15/19 09:00 Room Air 02/15/19 07:54 98.5 89 18 120/80 (93) 98 02/15/19 07:18 96 Room Air 21 02/15/19 04:00 98.7 97 18 127/84 (98) 97 02/15/19 00:00 98.8 78 18 151/69 (96) 97 02/14/19 23:07 Room Air 02/14/19 20:14 88 145/65 02/14/19 20:00 98.2 91 18 158/71 (100) 97 02/14/19 19:50 96 Room Air 21 02/14/19 18:04 97.8 88 18 145/65 (91) 97 02/14/19 17:16 86 02/14/19 16:00 98.0 85 18 158/74 (102) 98 02/14/19 16:00 Nasal Cannula 2.0 02/14/19 16:00 2.0 02/14/19 13:06 88 02/14/19 13:01 92 159/78 02/14/19 12:03 159/78 02/14/19 11:58 Nasal Cannula 2.0 02/14/19 11:58 2.0 02/14/19 11:49 97.9 92 18 159/78 (105) 97 Intake and Output 02/15/19 02/16/19 19:00 07:00 Intake Total 1660 ml 6360 ml Output Total 850 ml Balance 1660 ml 5510 ml Intake Oral 860 ml 860 ml IV Total 800 ml Blood Product 500 ml Other 5000 ml Output Urine Total 850 ml # Voids 6 4 # Bowel Movements 1 1 Labs Test 02/14/19 03:20 02/14/19 03:50 02/15/19 06:03 Phosphorus Level 2.7 MG/DL (2.5-4.9) 3.0 MG/DL (2.5-4.9) Magnesium Level 2.0 MG/DL (1.8-2.4) 2.0 MG/DL (1.8-2.4) Total Bilirubin 0.6 MG/DL (0.2-1.0) 0.7 MG/DL (0.2-1.0) Direct Bilirubin 0.1 MG/DL (0.0-0.3) Aspartate Amino Transf (AST/SGOT) 171 U/L (15-37) 101 U/L (15-37) Alanine Aminotransferase (ALT/SGPT) 188 U/L (12-78) 145 U/L (12-78) Alkaline Phosphatase 58 U/L (46-116) 49 U/L (46-116) Total Protein 5.5 G/DL (6.4-8.2) 5.9 G/DL (6.4-8.2) Albumin 2.0 G/DL (3.4-5.0) 2.2 G/DL (3.4-5.0) White Blood Count 11.5 K/UL (4.8-10.8) 8.8 K/UL (4.8-10.8) Red Blood Count 3.58 M/UL (4.70-6.10) 3.89 M/UL (4.70-6.10) Hemoglobin 11.1 G/DL (14.2-18.0) 12.1 G/DL (14.2-18.0) Hematocrit 33.0 % (42.0-52.0) 36.0 % (42.0-52.0) Mean Corpuscular Volume 92 FL (80-99) 93 FL (80-99) Mean Corpuscular Hemoglobin 31.0 PG (27.0-31.0) 31.2 PG (27.0-31.0) Mean Corpuscular Hemoglobin Concent 33.7 G/DL (32.0-36.0) 33.6 G/DL (32.0-36.0) Red Cell Distribution Width 12.7 % (11.6-14.8) 13.1 % (11.6-14.8) Platelet Count 297 K/UL (150-450) 348 K/UL (150-450) Mean Platelet Volume 4.9 FL (6.5-10.1) 5.0 FL (6.5-10.1) Neutrophils (%) (Auto) 77.1 % (45.0-75.0) 74.2 % (45.0-75.0) Lymphocytes (%) (Auto) 14.3 % (20.0-45.0) 16.0 % (20.0-45.0) Monocytes (%) (Auto) 6.6 % (1.0-10.0) 6.8 % (1.0-10.0) Eosinophils (%) (Auto) 1.4 % (0.0-3.0) 2.2 % (0.0-3.0) Basophils (%) (Auto) 0.6 % (0.0-2.0) 0.9 % (0.0-2.0) Sodium Level 143 MMOL/L (136-145) 143 MMOL/L (136-145) Potassium Level 2.9 MMOL/L (3.5-5.1) 3.3 MMOL/L (3.5-5.1) Chloride Level 107 MMOL/L (98-107) 108 MMOL/L (98-107) Carbon Dioxide Level 28 MMOL/L (21-32) 26 MMOL/L (21-32) Anion Gap 8 mmol/L (5-15) 9 mmol/L (5-15) Blood Urea Nitrogen 3 mg/dL (7-18) 5 mg/dL (7-18) Creatinine 0.5 MG/DL (0.55-1.30) 0.5 MG/DL (0.55-1.30) Estimat Glomerular Filtration Rate mL/min (>60) mL/min (>60) Glucose Level 131 MG/DL (74-106) 110 MG/DL (74-106) Calcium Level 8.1 MG/DL (8.5-10.1) 8.4 MG/DL (8.5-10.1) Uric Acid 1.4 MG/DL (2.6-7.2) Globulin 3.7 g/dL Albumin/Globulin Ratio 0.6 (1.0-2.7) Height (Feet): 5 Height (Inches): 5.00 Weight (Pounds): 135 Objective General Appearance: no acute distress HEENT: mucous membranes moist Respiratory/Chest: lungs clear, 2l nc Cardiovascular: normal rate Abdomen: soft, non tender Extremities: no edema Neurologic/Psychiatric: alert, responsive Hal Smith MD Feb 16, 2019 10:42
[2019-02-16 12:00] VITALS: BP 150/71
--- NOTE | 2019-02-16 12:13 | Infectious Diseases Prog Note ---
Assessment/Plan Assessment/Plan IMPRESSION: Sepsis, systemic inflammatory response syndrome, Leukocytosis GI bleeding Duodenal ulcer. Uncontrolled DM Lactic acidosis, Acute renal failure improving. Onychomycosis and tinea pedis, anemia, received blood transfusion, Elevated transaminase level. Acute respiratory failure resolved H. pylori infection RECOMMENDATION: continue topical clotrimazole Continue Amoxicillin, Biaxin & Protonix Subjective ROS Limited/Unobtainable: Yes Constitutional: Reports: no symptoms Respiratory: Reports: no symptoms Gastrointestinal/Abdominal: Reports: no symptoms Genitourinary: Reports: no symptoms Allergies: Coded Allergies: No Known Allergies (Unverified , 02/07/19) Objective Vital Signs Last 24 Hour Vital Signs Date Time Temp Pulse Resp B/P (MAP) Pulse Ox O2 Delivery O2 Flow Rate FiO2 02/16/19 09:00 Room Air 02/16/19 08:38 85 155/88 02/16/19 08:00 97.2 85 20 148/70 (96) 97 02/16/19 04:00 97.8 85 18 155/88 (110) 98 02/16/19 00:14 98.9 83 19 128/67 (87) 98 02/15/19 21:03 Room Air 02/15/19 20:49 91 141/73 02/15/19 20:00 98.3 91 20 141/73 (95) 97 02/15/19 19:54 97 Room Air 21 02/15/19 16:00 98.6 81 19 125/68 (87) 98 Height (Feet): 5 Height (Inches): 5.00 Weight (Pounds): 135 General Appearance: no acute distress HEENT: mucous membranes moist Respiratory/Chest: chest wall non-tender Cardiovascular: normal rate Abdomen: soft, non tender Extremities: no edema Neurologic/Psychiatric: alert, responsive Current Medications Medications (Trade) Dose Ordered Sig/Manish Route PRN Reason Start Time Stop Time Status Last Admin Dose Admin Acetaminophen (Tylenol) 650 mg Q6H PRN ORAL Mild Pain/Temp > 100.5 02/14/19 18:30 03/10/19 18:29 02/16/19 10:10 Amoxicillin (Amoxil) 1,000 mg BID@0630,1630 ORAL 02/15/19 06:30 02/21/19 16:29 02/16/19 05:39 Clarithromycin (Biaxin) 500 mg EVERY 12 HOURS ORAL 02/14/19 21:00 02/21/19 09:59 02/16/19 08:38 Clotrimazole (Lotrimin) 1 applic THREE TIMES A DAY TOPIC 02/14/19 18:00 03/10/19 17:59 02/16/19 08:38 Dextrose (Dextrose 50%) 25 ml Q30M PRN IV Hypoglycemia 02/14/19 08:30 03/10/19 08:29 Dextrose (Dextrose 50%) 50 ml Q30M PRN IV Hypoglycemia 02/14/19 18:30 03/10/19 18:29 Hydralazine HCl (Apresoline) 25 mg Q4H PRN ORAL bp over 160 syst 02/14/19 18:30 03/16/19 18:29 Insulin Aspart (NovoLOG) AC+HS SUBQ 02/14/19 21:00 03/10/19 11:59 Metoprolol Tartrate (Lopressor) 25 mg Q12HR ORAL 02/14/19 21:00 03/16/19 20:59 02/16/19 08:38 Pantoprazole (Protonix) 40 mg BID ORAL 02/15/19 09:00 03/17/19 08:59 02/16/19 08:38 Potassium Chloride (K-Dur) 40 meq DAILY ORAL 02/16/19 10:00 03/18/19 09:59 02/16/19 10:10 Thiamine HCl (Vitamin B1) 100 mg DAILY ORAL 02/15/19 09:00 03/17/19 08:59 02/16/19 08:38 Fazal Basilio MD Feb 16, 2019 12:13
--- NOTE | 2019-02-16 12:32 | Surgery Progress Note ---
Surgery Progress Note Subjective Additional Comments no acute events exam stable labs noted tolerating diet Objective Last 24 Hour Vital Signs Date Time Temp Pulse Resp B/P (MAP) Pulse Ox O2 Delivery O2 Flow Rate FiO2 02/16/19 09:00 Room Air 02/16/19 08:38 85 155/88 02/16/19 08:00 97.2 85 20 148/70 (96) 97 02/16/19 04:00 97.8 85 18 155/88 (110) 98 02/16/19 00:14 98.9 83 19 128/67 (87) 98 02/15/19 21:03 Room Air 02/15/19 20:49 91 141/73 02/15/19 20:00 98.3 91 20 141/73 (95) 97 02/15/19 19:54 97 Room Air 21 02/15/19 16:00 98.6 81 19 125/68 (87) 98 I&O Intake and Output 02/15/19 02/16/19 19:00 07:00 Intake Total 1660 ml 6360 ml Output Total 850 ml Balance 1660 ml 5510 ml Intake Oral 860 ml 860 ml IV Total 800 ml Blood Product 500 ml Other 5000 ml Output Urine Total 850 ml # Voids 6 4 # Bowel Movements 1 1 Cardiovascular: RSR Respiratory: clear Abdomen: soft, distended, non-tender, present bowel sounds Extremities: no cyanosis Plan Problems: (1) GIB (gastrointestinal bleeding) Assessment & Plan: 69-year-old male with acute gastrointestinal hemorrhage secondary to large duodenal ulcer. Patient had endoscopy with hemostasis just now identified a large ulcer with potential to rebleed. Need to control patient's hypertension and allow for even permissive hypotension if necessary h/h stable overall doing better labs stable now exam stable Will follow and be available in case patient rebleeds at which time he will require an exploration thank you for allowing me to participate in patient's care will follow with recommendations Adelso Baumann Feb 16, 2019 12:32
--- NOTE | 2019-02-16 12:37 | Nephrology Progress Note ---
Assessment/Plan Problem List: (1) ARF (acute renal failure) (2) Dehydration (3) Acute respiratory failure (4) Esophageal varices (5) GIB (gastrointestinal bleeding) Assessment Acute renal failure , Cr lower now intubated Dehydration Hyperglycemia high Lactate level esophageal bleed GI bleed . Plan tolerating full liquid- switch meds to po as possible- to med surg K and Phos and mag supplement as needed per GI- Monitor lytes and renal parameters PT Subjective ROS Limited/Unobtainable: No Constitutional: Reports: malaise Objective Objective Last 24 Hour Vital Signs Date Time Temp Pulse Resp B/P (MAP) Pulse Ox O2 Delivery O2 Flow Rate FiO2 02/16/19 12:00 98.2 82 20 150/71 (97) 96 02/16/19 09:00 Room Air 02/16/19 08:38 85 155/88 02/16/19 08:00 97.2 85 20 148/70 (96) 97 02/16/19 04:00 97.8 85 18 155/88 (110) 98 02/16/19 00:14 98.9 83 19 128/67 (87) 98 02/15/19 21:03 Room Air 02/15/19 20:49 91 141/73 02/15/19 20:00 98.3 91 20 141/73 (95) 97 02/15/19 19:54 97 Room Air 21 02/15/19 16:00 98.6 81 19 125/68 (87) 98 Intake and Output 02/15/19 02/16/19 19:00 07:00 Intake Total 1660 ml 6360 ml Output Total 850 ml Balance 1660 ml 5510 ml Intake Oral 860 ml 860 ml IV Total 800 ml Blood Product 500 ml Other 5000 ml Output Urine Total 850 ml # Voids 6 4 # Bowel Movements 1 1 Height (Feet): 5 Height (Inches): 5.00 Weight (Pounds): 135 General Appearance: no apparent distress Objective no change Arturo Cruz MD Feb 16, 2019 12:36
[2019-02-16 16:00] VITALS: BP 152/71
--- NOTE | 2019-02-16 16:22 | Cardiac Electrophysiology PN ---
Assessment/Plan Assessment/Plan 1. Sinus tachycardia due to diabetic ketoacidosis and acute GI bleed. No evidence of atrial fibrillation or any SVT. EF 60%. 2. S/P Respiratory failure, Extubated 3. Acute GI bleed, status post endoscopy by Dr. Conn that showed duodenal ulcer. Biopsy was performed. Patient received 4 units of blood transfusion. The patient had large duodenal bulb ulcer with hemorrhage. No indication for surgery at this time per Dr. Baumann 4. Diabetic ketoacidosis, on insulin drip. 5. Accelerated hypertension. On IV hydralazine. PRASHANTH RN Subjective Subjective No CP or SOB. Placement pending Objective Last 24 Hour Vital Signs Date Time Temp Pulse Resp B/P (MAP) Pulse Ox O2 Delivery O2 Flow Rate FiO2 02/16/19 12:40 96 Room Air 21 02/16/19 12:40 78 20 96 Nasal Cannula 2.0 02/16/19 12:00 98.2 82 20 150/71 (97) 96 02/16/19 09:00 Room Air 02/16/19 08:38 85 155/88 02/16/19 08:00 97.2 85 20 148/70 (96) 97 02/16/19 04:00 97.8 85 18 155/88 (110) 98 02/16/19 00:14 98.9 83 19 128/67 (87) 98 02/15/19 21:03 Room Air 02/15/19 20:49 91 141/73 02/15/19 20:00 98.3 91 20 141/73 (95) 97 02/15/19 19:54 97 Room Air 21 Intake and Output 02/15/19 02/16/19 19:00 07:00 Intake Total 1660 ml 6360 ml Output Total 850 ml Balance 1660 ml 5510 ml Intake Oral 860 ml 860 ml IV Total 800 ml Blood Product 500 ml Other 5000 ml Output Urine Total 850 ml # Voids 6 4 # Bowel Movements 1 1 Objective HEAD AND NECK: No JVD. LUNGS: Decreased breath sounds. CARDIOVASCULAR: Nl S1 and S2 with no gallop. ABDOMEN: Soft. EXTREMITIES: No pitting edema poor feet hygiene. Matthew Kent MD Feb 16, 2019 16:21
--- NOTE | 2019-02-16 19:25 | NUR ---
HAND-OFF: Report given to Trisha BATISTA.
[2019-02-16 20:00] VITALS: BP 144/77
--- NOTE | 2019-02-16 20:00 | NUR ---
NURSE NOTES: RECEIVED PATIENT LYING IN BED, AWAKE, ALERT/ORIENTED TO PERSON, DELROY, SON, AT BEDSIDE, DENIES PAIN. NO SIGNS AND SYMPTOMS OF ACUTE CARDIO RESPIRATORY DISTRESS/SHORTNESS OF BREATH, NO PERIPHERAL EDEMA NOTED. FALL/ASPIRATION/SEIZURE PRECAUTIONS OBSERVED AT ALL TIMES. ABDOMEN SOFT/NON DISTENDED/AUDIBLE BOWEL SOUNDS, TOLERATING G TUBE FEEDING, NO GASTRIC RESIDUAL ASPIRATED, NO REPORT OF N/V. BILATERAL WRIST RESTRAI Addendum: 02/16/19 at 2205 by ZAID ROSA LVN NURSE NOTES: CHARTED IN ERROR
--- NOTE | 2019-02-16 20:00 | NUR ---
NURSE NOTES: RECEIVED PATIENT LYING IN BED, AWAKE, ALERT/ORIENTED X3, ABLE TO VERBALIZE NEEDS, DENIES PAIN, NO SIGNS AND SYMPTOMS OF ACUTE CARDIO RESPIRATORY DISTRESS/SHORTNESS OF BREATH, NO EDEMA NOTED. ABDOMEN SOFT/NON DISTENDED/AUDIBLE BOWEL SOUNDS, DIET INCREASED TO CCHO M, SOFT EASY CHEW, TOLERATED WELL, NO N/V. CONTINENT OF B/B, URINAL AT BEDSIDE. SKIN INTACT, REDNESS NOTED TO RIGHT HERNANDEZ, NO OPEN AREAS. ASSISTED WITH PM CARE, TOLERATED WELL. SIDE RAILS UP X3/BED IN LOWEST POSITION FOR SAFETY, ENCOURAGED PATIENT TO UTILIZE CALL LIGHT FOR ASSISTANCE, VERBALIZED UNDERSTANDING. NAD.
--- NOTE | 2019-02-16 20:20 | General Progress Note ---
Assessment/Plan Problem List: (1) ARF (acute renal failure) ICD Codes: N17.9 - Acute kidney failure, unspecified SNOMED: 36071004 Qualifiers: Qualified Codes: N17.9 - Acute kidney failure, unspecified (2) Sepsis ICD Codes: A41.9 - Sepsis, unspecified organism SNOMED: 10591334, 71967050 Qualifiers: Qualified Codes: A41.9 - Sepsis, unspecified organism; R65.20 - Severe sepsis without septic shock; N17.9 - Acute kidney failure, unspecified (3) Lactic acidosis ICD Codes: E87.2 - Acidosis SNOMED: 49851177, 24270214 (4) Anemia ICD Codes: D64.9 - Anemia, unspecified SNOMED: 789041200 (5) DKA (diabetic ketoacidoses) ICD Codes: E11.10 - Type 2 diabetes mellitus with ketoacidosis without coma SNOMED: 555149925, 30544485 Qualifiers: Qualified Codes: E13.10 - Other specified diabetes mellitus with ketoacidosis without coma (6) GIB (gastrointestinal bleeding) ICD Codes: K92.2 - Gastrointestinal hemorrhage, unspecified SNOMED: 66362230 (7) Acute respiratory failure ICD Codes: J96.00 - Acute respiratory failure, unspecified whether with hypoxia or hypercapnia SNOMED: 14996751 (8) Dehydration ICD Codes: E86.0 - Dehydration SNOMED: 81008634, 08160321 Status: progressing, unchanged Assessment/Plan: dka resolved gi bleeding check h/h moniter for bleeding Subjective ROS Limited/Unobtainable: Yes Allergies: Coded Allergies: No Known Allergies (Unverified , 02/07/19) Objective Last 24 Hour Vital Signs Date Time Temp Pulse Resp B/P (MAP) Pulse Ox O2 Delivery O2 Flow Rate FiO2 02/16/19 20:05 74 20 98 Nasal Cannula 2.0 28 02/16/19 20:05 98 Room Air 02/16/19 16:00 97.9 79 20 152/71 (98) 99 02/16/19 12:40 96 Room Air 02/16/19 12:40 78 20 96 Nasal Cannula 2.0 28 02/16/19 12:00 98.2 82 20 150/71 (97) 96 02/16/19 09:00 Room Air 8/29/19 08:38 85 155/88 02/16/19 08:00 97.2 85 20 148/70 (96) 97 02/16/19 04:00 97.8 85 18 155/88 (110) 98 02/16/19 00:14 98.9 83 19 128/67 (87) 98 02/15/19 21:03 Room Air 02/15/19 20:49 91 141/73 Intake and Output 02/15/19 02/16/19 19:00 07:00 Intake Total 1660 ml 6360 ml Output Total 850 ml Balance 1660 ml 5510 ml Intake Oral 860 ml 860 ml IV Total 800 ml Blood Product 500 ml Other 5000 ml Output Urine Total 850 ml # Voids 6 4 # Bowel Movements 1 1 Height (Feet): 5 Height (Inches): 5.00 Weight (Pounds): 135 Neck: supple Cardiovascular: normal rate Respiratory/Chest: lungs clear Abdomen: non tender Harvey Gee MD Feb 16, 2019 20:20
--- NOTE | 2019-02-16 21:15 | NUR ---
NURSE NOTES: BLOOD GLUCOSE LEVEL MONITORED VIA GLUCOMETER WITH RESULT 141MG/DL, ASYMPTOMATIC, ADM. 3 UNITS NOVOLOG INSULIN SLIDING SCALE, TOLERATED WELL, NO ADVERSE REACTION NOTED AFTER 15 MINUTES.
--- NOTE | 2019-02-16 23:58 | NUR ---
NURSE NOTES: AWAKE, ALERT/ORIENTED X3, RESTING WELL, NO COMPLAINTS OF PAIN/DISCOMFORT. NAD.
[2019-02-17] VITALS: BP 165/83
[2019-02-17] MEDS: HydrALAZINE 25mg tab ORAL PRN (00:04)
[2019-02-17 04:00] VITALS: BP 140/69
--- NOTE | 2019-02-17 04:00 | NUR ---
NURSE NOTES: Received pt from [facility] to continue care. Pt is sleeping in bed. On room air. IV site intact and patent. SCD refused. No acute distress noted at this time. Bed locked, lowest position, alarm on, side rails up x 2, call light within reach. Will continue to monitor.
[2019-02-17] MEDS: NovoLOG Insulin Flexpen SUBQ SCH ×4 (06:17→21:00)
--- NOTE | 2019-02-17 07:35 | NUR ---
HAND-OFF: Report given to RAJI Hart.
[2019-02-17 08:00] VITALS: BP 133/71
[2019-02-17] MEDS: Clarithromycin 500mg tab ORAL SCH ×2 (08:42→21:44)
[2019-02-17] MEDS: Metoprolol 25mg tab ORAL SCH ×2 (08:42→21:44)
[2019-02-17] MEDS: Thiamine 100mg tab ORAL SCH (08:43)
[2019-02-17 09:39] LABS: BASOPHILS % (AUTO) 0.5 % (0.0-2.0); EOSINOPHILS % (AUTO) 1.5 % (0.0-3.0); HEMATOCRIT 40.8 % (42.0-52.0); HEMOGLOBIN 13.7 G/DL (14.2-18.0); LYMPHOCYTES % (AUTO) 16.8 % (20.0-45.0); MEAN CORPUSCULAR VOLUME 92 FL (80-99); MONOCYTES % (AUTO) 5.7 % (1.0-10.0); NEUTROPHILS % (AUTO) 75.5 % (45.0-75.0); PLATELET COUNT 485 K/UL (150-450); RED BLOOD COUNT 4.45 M/UL (4.70-6.10); RED CELL DISTRIBUTION WIDTH 13.1 % (11.6-14.8); WHITE BLOOD COUNT 11.7 K/UL (4.8-10.8)
[2019-02-17 09:43] LABS: ANION GAP 10 mmol/L (5-15); BLOOD UREA NITROGEN 12 mg/dL (7-18); CALCIUM 9.2 MG/DL (8.5-10.1); CARBON DIOXIDE 28 MMOL/L (21-32); CHLORIDE 106 MMOL/L (98-107); CREATININE 0.6 MG/DL (0.55-1.30); POTASSIUM 4.1 MMOL/L (3.5-5.1); SODIUM 144 MMOL/L (136-145)
[2019-02-17] MEDS ORDERED: NS 500ML ONE (09:48)
[2019-02-17] MEDS ORDERED: Tubing IV Secondary IV ONE (09:48)
--- NOTE | 2019-02-17 09:58 | Surgery Progress Note ---
Surgery Progress Note Subjective Additional Comments leukocytosis exam stable comfortable resting tolerating diet bowel function. no complaints Objective Last 24 Hour Vital Signs Date Time Temp Pulse Resp B/P (MAP) Pulse Ox O2 Delivery O2 Flow Rate FiO2 02/17/19 08:42 82 133/71 02/17/19 08:00 98.3 82 19 133/71 (91) 98 02/17/19 04:00 98.6 86 20 140/69 (92) 98 02/17/19 00:04 169/88 02/17/19 00:00 98.2 87 20 165/83 (110) 98 02/16/19 21:07 100 158/86 02/16/19 20:34 Room Air 02/16/19 20:05 74 20 98 Nasal Cannula 2.0 28 02/16/19 20:05 98 Room Air 21 02/16/19 20:00 98.2 97 16 144/77 (99) 95 02/16/19 16:00 97.9 79 20 152/71 (98) 99 02/16/19 12:40 96 Room Air 21 02/16/19 12:40 78 20 96 Nasal Cannula 2.0 28 02/16/19 12:00 98.2 82 20 150/71 (97) 96 I&O Intake and Output 02/16/19 02/17/19 18:59 06:59 Intake Total 480 ml 240 ml Output Total 750 ml 300 ml Balance -270 ml -60 ml Intake Oral 480 ml 240 ml Output Urine Total 750 ml 300 ml # Voids 3 3 Cardiovascular: RSR Respiratory: clear Abdomen: soft, distended, non-tender, present bowel sounds, decreased bowel sounds Extremities: no edema, no tenderness, no cyanosis Laboratory Tests Test 02/17/19 08:50 White Blood Count 11.7 K/UL (4.8-10.8) H Red Blood Count 4.45 M/UL (4.70-6.10) L Hemoglobin 13.7 G/DL (14.2-18.0) L Hematocrit 40.8 % (42.0-52.0) L Mean Corpuscular Volume 92 FL (80-99) Mean Corpuscular Hemoglobin 30.9 PG (27.0-31.0) Mean Corpuscular Hemoglobin Concent 33.6 G/DL (32.0-36.0) Red Cell Distribution Width 13.1 % (11.6-14.8) Platelet Count 485 K/UL (150-450) H Mean Platelet Volume 4.8 FL (6.5-10.1) L Neutrophils (%) (Auto) 75.5 % (45.0-75.0) H Lymphocytes (%) (Auto) 16.8 % (20.0-45.0) L Monocytes (%) (Auto) 5.7 % (1.0-10.0) Eosinophils (%) (Auto) 1.5 % (0.0-3.0) Basophils (%) (Auto) 0.5 % (0.0-2.0) Sodium Level 144 MMOL/L (136-145) Potassium Level 4.1 MMOL/L (3.5-5.1) Chloride Level 106 MMOL/L (98-107) Carbon Dioxide Level 28 MMOL/L (21-32) Anion Gap 10 mmol/L (5-15) Blood Urea Nitrogen 12 mg/dL (7-18) Creatinine 0.6 MG/DL (0.55-1.30) Estimat Glomerular Filtration Rate mL/min (>60) Glucose Level 115 MG/DL (74-106) H Calcium Level 9.2 MG/DL (8.5-10.1) Plan Problems: (1) GIB (gastrointestinal bleeding) Assessment & Plan: 69-year-old male with acute gastrointestinal hemorrhage secondary to large duodenal ulcer. Patient had endoscopy with hemostasis just now identified a large ulcer with potential to rebleed. Need to control patient's hypertension and allow for even permissive hypotension if necessary h/h stable overall doing better labs stable now exam stable Will follow and be available in case patient rebleeds at which time he will require an exploration thank you for allowing me to participate in patient's care d/c planning will follow with recommendations Adelso Baumann Feb 17, 2019 09:58
--- NOTE | 2019-02-17 10:00 | General Progress Note ---
Assessment/Plan Problem List: (1) GIB (gastrointestinal bleeding) ICD Codes: K92.2 - Gastrointestinal hemorrhage, unspecified SNOMED: 12590269 Status: progressing, unchanged Assessment/Plan: stable H&H full liquid cont protonix treat for HP Subjective ROS Limited/Unobtainable: Yes Allergies: Coded Allergies: No Known Allergies (Unverified , 02/07/19) Objective Last 24 Hour Vital Signs Date Time Temp Pulse Resp B/P (MAP) Pulse Ox O2 Delivery O2 Flow Rate FiO2 02/17/19 08:42 82 133/71 02/17/19 08:00 98.3 82 19 133/71 (91) 98 02/17/19 04:00 98.6 86 20 140/69 (92) 98 02/17/19 00:04 169/88 02/17/19 00:00 98.2 87 20 165/83 (110) 98 02/16/19 21:07 100 158/86 02/16/19 20:34 Room Air 02/16/19 20:05 74 20 98 Nasal Cannula 2.0 28 02/16/19 20:05 98 Room Air 21 02/16/19 20:00 98.2 97 16 144/77 (99) 95 02/16/19 16:00 97.9 79 20 152/71 (98) 99 02/16/19 12:40 96 Room Air 21 02/16/19 12:40 78 20 96 Nasal Cannula 2.0 28 02/16/19 12:00 98.2 82 20 150/71 (97) 96 Intake and Output 02/16/19 02/17/19 18:59 06:59 Intake Total 480 ml 240 ml Output Total 750 ml 300 ml Balance -270 ml -60 ml Intake Oral 480 ml 240 ml Output Urine Total 750 ml 300 ml # Voids 3 3 Laboratory Tests 02/17/19 08:50: White Blood Count 11.7H, Red Blood Count 4.45L, Hemoglobin 13.7L, Hematocrit 40.8L, Mean Corpuscular Volume 92, Mean Corpuscular Hemoglobin 30.9, Mean Corpuscular Hemoglobin Concent 33.6, Red Cell Distribution Width 13.1, Platelet Count 485H, Mean Platelet Volume 4.8L, Neutrophils (%) (Auto) 75.5H, Lymphocytes (%) (Auto) 16.8L, Monocytes (%) (Auto) 5.7, Eosinophils (%) (Auto) 1.5, Basophils (%) (Auto) 0.5, Sodium Level 144, Potassium Level 4.1, Chloride Level 106, Carbon Dioxide Level 28, Anion Gap 10, Blood Urea Nitrogen 12, Creatinine 0.6, Estimat Glomerular Filtration Rate , Glucose Level 115H, Calcium Level 9.2 Height (Feet): 5 Height (Inches): 5.00 Weight (Pounds): 138 General Appearance: alert EENT: normal ENT inspection Neck: supple Cardiovascular: normal rate Respiratory/Chest: decreased breath sounds Abdomen: normal bowel sounds, non tender, soft Extremities: non-tender Kj Conn MD Feb 17, 2019 10:00
--- NOTE | 2019-02-17 11:09 | Infectious Diseases Prog Note ---
Assessment/Plan Assessment/Plan IMPRESSION: Sepsis, systemic inflammatory response syndrome, Leukocytosis GI bleeding Duodenal ulcer. Uncontrolled DM Lactic acidosis, Acute renal failure improving. Onychomycosis and tinea pedis, anemia, received blood transfusion, Elevated transaminase level. Acute respiratory failure resolved H. pylori infection RECOMMENDATION: continue topical clotrimazole Continue Amoxicillin, Biaxin & Protonix Subjective ROS Limited/Unobtainable: Yes Constitutional: Denies: fever Musculoskeletal: Reports: pain, other - in feet with walking Allergies: Coded Allergies: No Known Allergies (Unverified , 02/07/19) Objective Vital Signs Last 24 Hour Vital Signs Date Time Temp Pulse Resp B/P (MAP) Pulse Ox O2 Delivery O2 Flow Rate FiO2 02/17/19 08:59 98 Room Air 21 02/17/19 08:59 117 22 98 Room Air 02/17/19 08:42 82 133/71 02/17/19 08:00 98.3 82 19 133/71 (91) 98 02/17/19 04:00 98.6 86 20 140/69 (92) 98 02/17/19 00:04 169/88 02/17/19 00:00 98.2 87 20 165/83 (110) 98 02/16/19 21:07 100 158/86 02/16/19 20:34 Room Air 02/16/19 20:05 74 20 98 Nasal Cannula 2.0 02/16/19 20:05 98 Room Air 02/16/19 20:00 98.2 97 16 144/77 (99) 95 02/16/19 16:00 97.9 79 20 152/71 (98) 99 02/16/19 12:40 96 Room Air 02/16/19 12:40 78 20 96 Nasal Cannula 2.0 28 02/16/19 12:00 98.2 82 20 150/71 (97) 96 Height (Feet): 5 Height (Inches): 5.00 Weight (Pounds): 138 General Appearance: no acute distress HEENT: mucous membranes moist Respiratory/Chest: lungs clear Cardiovascular: normal rate Abdomen: soft, non tender Extremities: no edema Neurologic/Psychiatric: alert, responsive Laboratory Tests Test 02/17/19 08:50 White Blood Count 11.7 K/UL (4.8-10.8) H Red Blood Count 4.45 M/UL (4.70-6.10) L Hemoglobin 13.7 G/DL (14.2-18.0) L Hematocrit 40.8 % (42.0-52.0) L Mean Corpuscular Volume 92 FL (80-99) Mean Corpuscular Hemoglobin 30.9 PG (27.0-31.0) Mean Corpuscular Hemoglobin Concent 33.6 G/DL (32.0-36.0) Red Cell Distribution Width 13.1 % (11.6-14.8) Platelet Count 485 K/UL (150-450) H Mean Platelet Volume 4.8 FL (6.5-10.1) L Neutrophils (%) (Auto) 75.5 % (45.0-75.0) H Lymphocytes (%) (Auto) 16.8 % (20.0-45.0) L Monocytes (%) (Auto) 5.7 % (1.0-10.0) Eosinophils (%) (Auto) 1.5 % (0.0-3.0) Basophils (%) (Auto) 0.5 % (0.0-2.0) Sodium Level 144 MMOL/L (136-145) Potassium Level 4.1 MMOL/L (3.5-5.1) Chloride Level 106 MMOL/L (98-107) Carbon Dioxide Level 28 MMOL/L (21-32) Anion Gap 10 mmol/L (5-15) Blood Urea Nitrogen 12 mg/dL (7-18) Creatinine 0.6 MG/DL (0.55-1.30) Estimat Glomerular Filtration Rate mL/min (>60) Glucose Level 115 MG/DL (74-106) H Calcium Level 9.2 MG/DL (8.5-10.1) Current Medications Medications (Trade) Dose Ordered Sig/Manish Route PRN Reason Start Time Stop Time Status Last Admin Dose Admin Acetaminophen (Tylenol) 650 mg Q6H PRN ORAL Mild Pain/Temp > 100.5 02/14/19 18:30 03/10/19 18:29 02/16/19 10:10 Amoxicillin (Amoxil) 1,000 mg BID@0630,1630 ORAL 02/15/19 06:30 02/21/19 16:29 02/17/19 06:19 Clarithromycin (Biaxin) 500 mg EVERY 12 HOURS ORAL 02/14/19 21:00 02/21/19 09:59 02/17/19 08:42 Clotrimazole (Lotrimin) 1 applic THREE TIMES A DAY TOPIC 02/14/19 18:00 03/10/19 17:59 02/17/19 08:43 Dextrose (Dextrose 50%) 25 ml Q30M PRN IV Hypoglycemia 02/14/19 08:30 03/10/19 08:29 Dextrose (Dextrose 50%) 50 ml Q30M PRN IV Hypoglycemia 02/14/19 18:30 03/10/19 18:29 Hydralazine HCl (Apresoline) 25 mg Q4H PRN ORAL bp over 160 syst 02/14/19 18:30 03/16/19 18:29 02/17/19 00:04 Insulin Aspart (NovoLOG) AC+HS SUBQ 02/14/19 21:00 03/10/19 11:59 02/16/19 21:11 Metoprolol Tartrate (Lopressor) 25 mg Q12HR ORAL 02/14/19 21:00 03/16/19 20:59 02/17/19 08:42 Pantoprazole (Protonix) 40 mg BID ORAL 02/15/19 09:00 03/17/19 08:59 02/17/19 08:43 Potassium Chloride (K-Dur) 40 meq DAILY ORAL 02/16/19 10:00 03/18/19 09:59 02/17/19 08:43 Thiamine HCl (Vitamin B1) 100 mg DAILY ORAL 02/15/19 09:00 03/17/19 08:59 02/17/19 08:43 Fazal Basilio MD Feb 17, 2019 11:09
--- NOTE | 2019-02-17 11:10 | NUR ---
PT WEEKLY PROGRESS NOTE Patient demonstrating slow gradual improvement with PT. Patient requires SBA for transfers OOB with FWW and requires min assist to return to bed. Patient able to ambulate 15 ft with FWW and CGA however patient c/o increased pain BLEs with WB which limits ambulation endurance. Patient is unsteady during ambulation and is a fall risk. Patient will benefit from continued inpatient PT intervention to increase strength and balance for improved functional mobility.
--- NOTE | 2019-02-17 11:14 | NUR ---
RD ASSESSMENT & RECOMMENDATIONS SEE CARE ACTIVITY FOR COMPLETE ASSESSMENT DAILY ESTIMATED NEEDS: Needs based on Critical care, DKA/ 56kg 22-28 kcals/kg 7502-3212 total kcals 1.2-2 g protein/kg 67-112 g total protein 25-30 mL/kg 7790-6726 total fluid mLs NUTRITION DIAGNOSIS: * Altered GI function R/T GIB as evidenced by s/p EGD w/ finding of large duodenal ulcer, now extubated, diet advanced to soft easy chew. * Altered nutrition related lab values R/T diabetes, liver dysfunction as evidenced by BG 405 upon adm-> now 110 131 improved, A1C of 6.7, elev LFTs, trending back down. CURRENT DIET:CCHO MED, soft easy chew PO DIET RECOMMENDATIONS: LOW NA, CCHO MED, BLAND/ texture as tolerated ADDITIONAL RECOMMENDATIONS: * Calibrated bedscale wt for accurate CBW -> w/ p200 mattress, SCD's * Wound healing: add MVI x 1, Vit C 250mg QD, Jonathon 1pkt BID * Monitor BGs closely- improved at this time * Monitor lytes, replete as needed * Monitor LFTs - trending back down
--- NOTE | 2019-02-17 11:24 | Diagnostic Imaging Report ---
APPROVED REPORT CPT Code: 87377 Present Symptoms Comments: AMS BILATERAL: Imaging reveals a patent deep venous system bilaterally. There is no evidence of thrombus within the femoral, popliteal or tibial segments. The greater saphenous veins are also within normal limits. Doppler indicates normal spontaneous flow within these segments.
[2019-02-17 12:00] VITALS: BP 133/69
--- NOTE | 2019-02-17 12:32 | Nephrology Progress Note ---
Assessment/Plan Problem List: (1) ARF (acute renal failure) (2) Dehydration (3) Acute respiratory failure (4) Esophageal varices (5) GIB (gastrointestinal bleeding) Assessment Acute renal failure , Cr lower now intubated Dehydration Hyperglycemia high Lactate level esophageal bleed GI bleed . Plan tolerating diet switch meds to po as possible- in med surg K and Phos and mag supplement as needed per GI- Monitor lytes and renal parameters PT Subjective ROS Limited/Unobtainable: No Constitutional: Reports: malaise Objective Objective Last 24 Hour Vital Signs Date Time Temp Pulse Resp B/P (MAP) Pulse Ox O2 Delivery O2 Flow Rate FiO2 02/17/19 09:00 Room Air 02/17/19 08:59 98 Room Air 21 02/17/19 08:59 117 22 98 Room Air 21 02/17/19 08:42 82 133/71 02/17/19 08:00 98.3 82 19 133/71 (91) 98 02/17/19 04:00 98.6 86 20 140/69 (92) 98 02/17/19 00:04 169/88 02/17/19 00:00 98.2 87 20 165/83 (110) 98 02/16/19 21:07 100 158/86 02/16/19 20:34 Room Air 02/16/19 20:05 74 20 98 Nasal Cannula 2.0 28 02/16/19 20:05 98 Room Air 21 02/16/19 20:00 98.2 97 16 144/77 (99) 95 02/16/19 16:00 97.9 79 20 152/71 (98) 99 02/16/19 12:40 96 Room Air 02/16/19 12:40 78 20 96 Nasal Cannula 2.0 28 Intake and Output 02/16/19 02/17/19 19:00 07:00 Intake Total 480 ml 240 ml Output Total 750 ml 300 ml Balance -270 ml -60 ml Intake Oral 480 ml 240 ml Output Urine Total 750 ml 300 ml # Voids 3 3 Laboratory Tests 02/17/19 08:50: White Blood Count 11.7H, Red Blood Count 4.45L, Hemoglobin 13.7L, Hematocrit 40.8L, Mean Corpuscular Volume 92, Mean Corpuscular Hemoglobin 30.9, Mean Corpuscular Hemoglobin Concent 33.6, Red Cell Distribution Width 13.1, Platelet Count 485H, Mean Platelet Volume 4.8L, Neutrophils (%) (Auto) 75.5H, Lymphocytes (%) (Auto) 16.8L, Monocytes (%) (Auto) 5.7, Eosinophils (%) (Auto) 1.5, Basophils (%) (Auto) 0.5, Sodium Level 144, Potassium Level 4.1, Chloride Level 106, Carbon Dioxide Level 28, Anion Gap 10, Blood Urea Nitrogen 12, Creatinine 0.6, Estimat Glomerular Filtration Rate , Glucose Level 115H, Calcium Level 9.2 Height (Feet): 5 Height (Inches): 5.00 Weight (Pounds): 138 General Appearance: no apparent distress Cardiovascular: normal rate Respiratory/Chest: decreased breath sounds Abdomen: distended Objective no change Arturo Cruz MD Feb 17, 2019 12:32
--- NOTE | 2019-02-17 13:29 | Cardiac Electrophysiology PN ---
Assessment/Plan Assessment/Plan 1. Sinus tachycardia due to diabetic ketoacidosis and acute GI bleed.Resolved No evidence of atrial fibrillation or any SVT. EF 60%. 2. S/P Respiratory failure, Extubated 3. Acute GI bleed, status post endoscopy by Dr. Conn that showed duodenal ulcer. Biopsy was performed. Patient received 4 units of blood transfusion. The patient had large duodenal bulb ulcer with hemorrhage. No indication for surgery at this time per Dr. Baumann 4. Diabetic ketoacidosis, on insulin drip. 5. Accelerated hypertension. On Lopressor 25 bid and prn Hydralazine PRASHANTH RN Subjective Subjective No CP or SOB. Comfortable Placement pending Objective Last 24 Hour Vital Signs Date Time Temp Pulse Resp B/P (MAP) Pulse Ox O2 Delivery O2 Flow Rate FiO2 02/17/19 12:00 97.9 91 18 133/69 (90) 98 02/17/19 09:00 Room Air 02/17/19 08:59 98 Room Air 21 02/17/19 08:59 117 22 98 Room Air 21 02/17/19 08:42 82 133/71 02/17/19 08:00 98.3 82 19 133/71 (91) 98 02/17/19 04:00 98.6 86 20 140/69 (92) 98 02/17/19 00:04 169/88 02/17/19 00:00 98.2 87 20 165/83 (110) 98 02/16/19 21:07 100 158/86 02/16/19 20:34 Room Air 02/16/19 20:05 74 20 98 Nasal Cannula 2.0 28 02/16/19 20:05 98 Room Air 02/16/19 20:00 98.2 97 16 144/77 (99) 95 02/16/19 16:00 97.9 79 20 152/71 (98) 99 Intake and Output 02/16/19 02/17/19 19:00 07:00 Intake Total 480 ml 240 ml Output Total 750 ml 300 ml Balance -270 ml -60 ml Intake Oral 480 ml 240 ml Output Urine Total 750 ml 300 ml # Voids 3 3 Laboratory Tests Test 02/17/19 08:50 White Blood Count 11.7 K/UL (4.8-10.8) H Red Blood Count 4.45 M/UL (4.70-6.10) L Hemoglobin 13.7 G/DL (14.2-18.0) L Hematocrit 40.8 % (42.0-52.0) L Mean Corpuscular Volume 92 FL (80-99) Mean Corpuscular Hemoglobin 30.9 PG (27.0-31.0) Mean Corpuscular Hemoglobin Concent 33.6 G/DL (32.0-36.0) Red Cell Distribution Width 13.1 % (11.6-14.8) Platelet Count 485 K/UL (150-450) H Mean Platelet Volume 4.8 FL (6.5-10.1) L Neutrophils (%) (Auto) 75.5 % (45.0-75.0) H Lymphocytes (%) (Auto) 16.8 % (20.0-45.0) L Monocytes (%) (Auto) 5.7 % (1.0-10.0) Eosinophils (%) (Auto) 1.5 % (0.0-3.0) Basophils (%) (Auto) 0.5 % (0.0-2.0) Sodium Level 144 MMOL/L (136-145) Potassium Level 4.1 MMOL/L (3.5-5.1) Chloride Level 106 MMOL/L (98-107) Carbon Dioxide Level 28 MMOL/L (21-32) Anion Gap 10 mmol/L (5-15) Blood Urea Nitrogen 12 mg/dL (7-18) Creatinine 0.6 MG/DL (0.55-1.30) Estimat Glomerular Filtration Rate mL/min (>60) Glucose Level 115 MG/DL (74-106) H Calcium Level 9.2 MG/DL (8.5-10.1) Objective HEAD AND NECK: No JVD. LUNGS: Decreased breath sounds. CARDIOVASCULAR: Nl S1 and S2 with no gallop. ABDOMEN: Soft. EXTREMITIES: No pitting edema poor feet hygiene. Matthew Kent MD Feb 17, 2019 13:29
--- NOTE | 2019-02-17 15:43 | Hematology/Onc Progress Note ---
Assessment/Plan Assessment/Plan # Anemia due to underlying gi bleed, sp egd which showed duodenal ulceration, failed hemostasis --> continue ppi --> coags slightly elevated, nsider vit K if persistent bleeding --> transfuse if hgb <7 --> no indication for surgery --> trend hgb 13-->11.1-->11->12-->13.7 --> if hgb downtrends may need ex lap per surg # Leukocytosis with Sepsis, systemic inflammatory response syndrome --> monitor for improvement --> is on abx, zosyn per id --> per id recs --> wbc 16--.14-->14-->11.7 # DKA with Uncontrolled DM --> on insulin sliding scale # Lactic acidosis, --> trend as needed, on ivf, thiamine, folate # Acute renal failure improving. --> sp fluids # Onychomycosis and tinea pedis, --> podiatry consulted # Elevated transaminase level due to etoh use --> trend as needed # Acute respiratory failure --> now extubated, breathing better --> on 2l NC The timing of this note does not necessarily reflect the time of the patient was seen. GREATLY APPRECIATE CONSULTATION. Subjective Allergies: Coded Allergies: No Known Allergies (Unverified , 02/07/19) Subjective 02/09: remains intubated, on vent, able to respond, in icelandic, to commands weaning today, h/h reviewed 02/10: icu, extubated, labs reviewed 02/12: on 2l nc, h/h reviewed, no bleeding in sdu 02/13: on nc, no events, no blding, a+o x4 02/15: discharged, passing gas, no f/c, no major changes 02/16: no fever or chills, on abx, resting, no acute events 02/17: no f/c, vs stable, no distress, denies pain, on abx Objective Objective Current Medications Medications (Trade) Dose Ordered Sig/Manish Route PRN Reason Start Time Stop Time Status Last Admin Dose Admin Acetaminophen (Tylenol) 650 mg Q6H PRN ORAL Mild Pain/Temp > 100.5 02/14/19 18:30 03/10/19 18:29 02/16/19 10:10 Amoxicillin (Amoxil) 1,000 mg BID@0630,1630 ORAL 02/15/19 06:30 02/21/19 16:29 02/17/19 06:19 Clarithromycin (Biaxin) 500 mg EVERY 12 HOURS ORAL 02/14/19 21:00 02/21/19 09:59 02/17/19 08:42 Clotrimazole (Lotrimin) 1 applic THREE TIMES A DAY TOPIC 02/14/19 18:00 03/10/19 17:59 02/17/19 12:32 Dextrose (Dextrose 50%) 25 ml Q30M PRN IV Hypoglycemia 02/14/19 08:30 03/10/19 08:29 Dextrose (Dextrose 50%) 50 ml Q30M PRN IV Hypoglycemia 02/14/19 18:30 03/10/19 18:29 Hydralazine HCl (Apresoline) 25 mg Q4H PRN ORAL bp over 160 syst 02/14/19 18:30 03/16/19 18:29 02/17/19 00:04 Insulin Aspart (NovoLOG) AC+HS SUBQ 02/14/19 21:00 03/10/19 11:59 02/17/19 12:31 Metoprolol Tartrate (Lopressor) 25 mg Q12HR ORAL 02/14/19 21:00 03/16/19 20:59 02/17/19 08:42 Pantoprazole (Protonix) 40 mg BID ORAL 02/15/19 09:00 03/17/19 08:59 02/17/19 08:43 Potassium Chloride (K-Dur) 40 meq DAILY ORAL 02/16/19 10:00 03/18/19 09:59 02/17/19 08:43 Thiamine HCl (Vitamin B1) 100 mg DAILY ORAL 02/15/19 09:00 03/17/19 08:59 02/17/19 08:43 Last 24 Hour Vital Signs Date Time Temp Pulse Resp B/P (MAP) Pulse Ox O2 Delivery O2 Flow Rate FiO2 02/17/19 12:00 97.9 91 18 133/69 (90) 98 02/17/19 09:00 Room Air 02/17/19 08:59 98 Room Air 21 02/17/19 08:59 117 22 98 Room Air 21 02/17/19 08:42 82 133/71 02/17/19 08:00 98.3 82 19 133/71 (91) 98 02/17/19 04:00 98.6 86 20 140/69 (92) 98 02/17/19 00:04 169/88 02/17/19 00:00 98.2 87 20 165/83 (110) 98 02/16/19 21:07 100 158/86 02/16/19 20:34 Room Air 02/16/19 20:05 74 20 98 Nasal Cannula 2.0 02/16/19 20:05 98 Room Air 02/16/19 20:00 98.2 97 16 144/77 (99) 95 02/16/19 16:00 97.9 79 20 152/71 (98) 99 02/16/19 12:40 96 Room Air 02/16/19 12:40 78 20 96 Nasal Cannula 2.0 28 02/16/19 12:00 98.2 82 20 150/71 (97) 96 02/16/19 09:00 Room Air 02/16/19 08:38 85 155/88 02/16/19 08:00 97.2 85 20 148/70 (96) 97 02/16/19 04:00 97.8 85 18 155/88 (110) 98 02/16/19 00:14 98.9 83 19 128/67 (87) 98 02/15/19 21:03 Room Air 02/15/19 20:49 91 141/73 02/15/19 20:00 98.3 91 20 141/73 (95) 97 02/15/19 19:54 97 Room Air 02/15/19 16:00 98.6 81 19 125/68 (87) 98 Intake and Output 02/16/19 02/17/19 19:00 07:00 Intake Total 480 ml 240 ml Output Total 750 ml 300 ml Balance -270 ml -60 ml Intake Oral 480 ml 240 ml Output Urine Total 750 ml 300 ml # Voids 3 3 Labs Test 02/15/19 06:03 02/17/19 08:50 White Blood Count 8.8 K/UL (4.8-10.8) 11.7 K/UL (4.8-10.8) Red Blood Count 3.89 M/UL (4.70-6.10) 4.45 M/UL (4.70-6.10) Hemoglobin 12.1 G/DL (14.2-18.0) 13.7 G/DL (14.2-18.0) Hematocrit 36.0 % (42.0-52.0) 40.8 % (42.0-52.0) Mean Corpuscular Volume 93 FL (80-99) 92 FL (80-99) Mean Corpuscular Hemoglobin 31.2 PG (27.0-31.0) 30.9 PG (27.0-31.0) Mean Corpuscular Hemoglobin Concent 33.6 G/DL (32.0-36.0) 33.6 G/DL (32.0-36.0) Red Cell Distribution Width 13.1 % (11.6-14.8) 13.1 % (11.6-14.8) Platelet Count 348 K/UL (150-450) 485 K/UL (150-450) Mean Platelet Volume 5.0 FL (6.5-10.1) 4.8 FL (6.5-10.1) Neutrophils (%) (Auto) 74.2 % (45.0-75.0) 75.5 % (45.0-75.0) Lymphocytes (%) (Auto) 16.0 % (20.0-45.0) 16.8 % (20.0-45.0) Monocytes (%) (Auto) 6.8 % (1.0-10.0) 5.7 % (1.0-10.0) Eosinophils (%) (Auto) 2.2 % (0.0-3.0) 1.5 % (0.0-3.0) Basophils (%) (Auto) 0.9 % (0.0-2.0) 0.5 % (0.0-2.0) Sodium Level 143 MMOL/L (136-145) 144 MMOL/L (136-145) Potassium Level 3.3 MMOL/L (3.5-5.1) 4.1 MMOL/L (3.5-5.1) Chloride Level 108 MMOL/L (98-107) 106 MMOL/L (98-107) Carbon Dioxide Level 26 MMOL/L (21-32) 28 MMOL/L (21-32) Anion Gap 9 mmol/L (5-15) 10 mmol/L (5-15) Blood Urea Nitrogen 5 mg/dL (7-18) 12 mg/dL (7-18) Creatinine 0.5 MG/DL (0.55-1.30) 0.6 MG/DL (0.55-1.30) Estimat Glomerular Filtration Rate mL/min (>60) mL/min (>60) Glucose Level 110 MG/DL (74-106) 115 MG/DL (74-106) Uric Acid 1.4 MG/DL (2.6-7.2) Calcium Level 8.4 MG/DL (8.5-10.1) 9.2 MG/DL (8.5-10.1) Phosphorus Level 3.0 MG/DL (2.5-4.9) Magnesium Level 2.0 MG/DL (1.8-2.4) Total Bilirubin 0.7 MG/DL (0.2-1.0) Aspartate Amino Transf (AST/SGOT) 101 U/L (15-37) Alanine Aminotransferase (ALT/SGPT) 145 U/L (12-78) Alkaline Phosphatase 49 U/L (46-116) Total Protein 5.9 G/DL (6.4-8.2) Albumin 2.2 G/DL (3.4-5.0) Globulin 3.7 g/dL Albumin/Globulin Ratio 0.6 (1.0-2.7) Height (Feet): 5 Height (Inches): 5.00 Weight (Pounds): 138 Objective General Appearance: no acute distress HEENT: mucous membranes moist Respiratory/Chest: lungs clear, 2l nc Cardiovascular: normal rate Abdomen: soft, non tender Extremities: no edema Neurologic/Psychiatric: alert, responsive Hal Smith MD Feb 17, 2019 15:43
--- NOTE | 2019-02-17 15:52 | NUR ---
Social Service Note KELLY and CM coordinator met with patient today to discuss impending dc planning. KELLY explained that SW and [facility] have been unable to locate patient's girlfriend. Patient states his girlfriend left for [place] prior to him getting to the hospital. Patient believes since he has been in the hospital home has been locked and he doesn't have a way to get into his unit. Patient states he was walking prior to admission and is unaware as to why his legs are hurting to stand and walk. KELLY recommends as PT is working with patient on ambulation, patient should receive wheelchair training ie. transfer to and from bed to w/c and w/c to toilet. Patient is aware that alternative placement options will be explored, possible longterm or recup care. Will continue to monitor.
[2019-02-17 16:00] VITALS: BP 128/73
--- NOTE | 2019-02-17 16:21 | NUR ---
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 97.9 HR 91 RR 18 B/P 133/69 WBC 11.7 IS: K-DUR PO BIAXIN PO LOPRESSOR PO AMOXICILLIN PO MED/SURG STATUS
--- NOTE | 2019-02-17 16:41 | General Progress Note ---
Assessment/Plan Problem List: (1) Sepsis ICD Codes: A41.9 - Sepsis, unspecified organism SNOMED: 64587757, [id number] Qualifiers: Qualified Codes: A41.9 - Sepsis, unspecified organism; R65.20 - Severe sepsis without septic shock; N17.9 - Acute kidney failure, unspecified (2) Sinus tachycardia ICD Codes: R00.0 - Tachycardia, unspecified SNOMED: 45111172 (3) ARF (acute renal failure) ICD Codes: N17.9 - Acute kidney failure, unspecified SNOMED: 75129577 Qualifiers: Qualified Codes: N17.9 - Acute kidney failure, unspecified (4) Lactic acidosis ICD Codes: E87.2 - Acidosis SNOMED: 04637817, 17025298 (5) Esophageal varices ICD Codes: I85.00 - Esophageal varices without bleeding SNOMED: 48267904 Status: progressing, unchanged Assessment/Plan: no need for basal insulin for now continue Novolog sliding scale Subjective Allergies: Coded Allergies: No Known Allergies (Unverified , 02/07/19) All Systems: reviewed and negative except above Subjective events noted glucose values are stable Item Value Date Time Bedside Blood Glucose 118 mg/dl 02/17/19 1231 Bedside Blood Glucose 91 mg/dl 02/17/19 0617 Bedside Blood Glucose 141 mg/dl H 02/16/19 2114 Bedside Blood Glucose 99 mg/dl 02/16/19 1630 Bedside Blood Glucose 89 mg/dl 02/16/19 1116 Objective Last 24 Hour Vital Signs Date Time Temp Pulse Resp B/P (MAP) Pulse Ox O2 Delivery O2 Flow Rate FiO2 02/17/19 12:00 97.9 91 18 133/69 (90) 98 02/17/19 09:00 Room Air 02/17/19 08:59 98 Room Air 21 02/17/19 08:59 117 22 98 Room Air 21 02/17/19 08:42 82 133/71 02/17/19 08:00 98.3 82 19 133/71 (91) 98 02/17/19 04:00 98.6 86 20 140/69 (92) 98 02/17/19 00:04 169/88 02/17/19 00:00 98.2 87 20 165/83 (110) 98 02/16/19 21:07 100 158/86 02/16/19 20:34 Room Air 02/16/19 20:05 74 20 98 Nasal Cannula 2.0 28 02/16/19 20:05 98 Room Air 21 02/16/19 20:00 98.2 97 16 144/77 (99) 95 Intake and Output 02/16/19 02/17/19 19:00 07:00 Intake Total 480 ml 240 ml Output Total 750 ml 300 ml Balance -270 ml -60 ml Intake Oral 480 ml 240 ml Output Urine Total 750 ml 300 ml # Voids 3 3 Laboratory Tests 02/17/19 08:50: White Blood Count 11.7H, Red Blood Count 4.45L, Hemoglobin 13.7L, Hematocrit 40.8L, Mean Corpuscular Volume 92, Mean Corpuscular Hemoglobin 30.9, Mean Corpuscular Hemoglobin Concent 33.6, Red Cell Distribution Width 13.1, Platelet Count 485H, Mean Platelet Volume 4.8L, Neutrophils (%) (Auto) 75.5H, Lymphocytes (%) (Auto) 16.8L, Monocytes (%) (Auto) 5.7, Eosinophils (%) (Auto) 1.5, Basophils (%) (Auto) 0.5, Sodium Level 144, Potassium Level 4.1, Chloride Level 106, Carbon Dioxide Level 28, Anion Gap 10, Blood Urea Nitrogen 12, Creatinine 0.6, Estimat Glomerular Filtration Rate , Glucose Level 115H, Calcium Level 9.2 Height (Feet): 5 Height (Inches): 5.00 Weight (Pounds): 138 General Appearance: no apparent distress Neck: normal alignment Cardiovascular: normal rate Respiratory/Chest: lungs clear Abdomen: normal bowel sounds Objective Current Medications Medications (Trade) Dose Ordered Sig/Manish Route PRN Reason Start Time Stop Time Status Last Admin Dose Admin Acetaminophen (Tylenol) 650 mg Q6H PRN ORAL Mild Pain/Temp > 100.5 02/14/19 18:30 03/10/19 18:29 02/16/19 10:10 Amoxicillin (Amoxil) 1,000 mg BID@0630,1630 ORAL 02/15/19 06:30 02/21/19 16:29 02/17/19 06:19 Clarithromycin (Biaxin) 500 mg EVERY 12 HOURS ORAL 02/14/19 21:00 02/21/19 09:59 02/17/19 08:42 Clotrimazole (Lotrimin) 1 applic THREE TIMES A DAY TOPIC 02/14/19 18:00 03/10/19 17:59 02/17/19 12:32 Dextrose (Dextrose 50%) 25 ml Q30M PRN IV Hypoglycemia 02/14/19 08:30 03/10/19 08:29 Dextrose (Dextrose 50%) 50 ml Q30M PRN IV Hypoglycemia 02/14/19 18:30 03/10/19 18:29 Hydralazine HCl (Apresoline) 25 mg Q4H PRN ORAL bp over 160 syst 02/14/19 18:30 03/16/19 18:29 02/17/19 00:04 Insulin Aspart (NovoLOG) AC+HS SUBQ 02/14/19 21:00 03/10/19 11:59 02/17/19 12:31 Metoprolol Tartrate (Lopressor) 25 mg Q12HR ORAL 02/14/19 21:00 03/16/19 20:59 02/17/19 08:42 Pantoprazole (Protonix) 40 mg BID ORAL 02/15/19 09:00 03/17/19 08:59 02/17/19 08:43 Potassium Chloride (K-Dur) 40 meq DAILY ORAL 02/16/19 10:00 03/18/19 09:59 02/17/19 08:43 Thiamine HCl (Vitamin B1) 100 mg DAILY ORAL 02/15/19 09:00 03/17/19 08:59 02/17/19 08:43 Jt Wellington MD Feb 17, 2019 16:41
[2019-02-17 20:00] VITALS: BP 124/74
--- NOTE | 2019-02-17 21:08 | General Progress Note ---
Assessment/Plan Problem List: (1) ARF (acute renal failure) ICD Codes: N17.9 - Acute kidney failure, unspecified SNOMED: 44489511 Qualifiers: Qualified Codes: N17.9 - Acute kidney failure, unspecified (2) Sepsis ICD Codes: A41.9 - Sepsis, unspecified organism SNOMED: 40572347, 58737186 Qualifiers: Qualified Codes: A41.9 - Sepsis, unspecified organism; R65.20 - Severe sepsis without septic shock; N17.9 - Acute kidney failure, unspecified (3) Lactic acidosis ICD Codes: E87.2 - Acidosis SNOMED: 95806690, 25181436 (4) Anemia ICD Codes: D64.9 - Anemia, unspecified SNOMED: 308451556 (5) DKA (diabetic ketoacidoses) ICD Codes: E11.10 - Type 2 diabetes mellitus with ketoacidosis without coma SNOMED: 176666446, 76276455 Qualifiers: Qualified Codes: E13.10 - Other specified diabetes mellitus with ketoacidosis without coma (6) GIB (gastrointestinal bleeding) ICD Codes: K92.2 - Gastrointestinal hemorrhage, unspecified SNOMED: 69206789 (7) Acute respiratory failure ICD Codes: J96.00 - Acute respiratory failure, unspecified whether with hypoxia or hypercapnia SNOMED: 63312462 (8) Dehydration ICD Codes: E86.0 - Dehydration SNOMED: 41981570, 55134659 Status: progressing, unchanged Assessment/Plan: dka resolved gi bleeding check h/h moniter for bleeding unable to care for himself so wrote to dc to safe place Subjective ROS Limited/Unobtainable: Yes Allergies: Coded Allergies: No Known Allergies (Unverified , 02/07/19) Objective Last 24 Hour Vital Signs Date Time Temp Pulse Resp B/P (MAP) Pulse Ox O2 Delivery O2 Flow Rate FiO2 02/17/19 20:42 Room Air 02/17/19 20:03 91 20 97 Room Air 02/17/19 20:03 97 Room Air 21 02/17/19 16:00 98.1 97 18 128/73 (91) 97 02/17/19 12:00 97.9 91 18 133/69 (90) 98 02/17/19 09:00 Room Air 02/17/19 08:59 98 Room Air 21 02/17/19 08:59 117 22 98 Room Air 21 02/17/19 08:42 82 133/71 02/17/19 08:00 98.3 82 19 133/71 (91) 98 02/17/19 04:00 98.6 86 20 140/69 (92) 98 02/17/19 00:04 169/88 02/17/19 00:00 98.2 87 20 165/83 (110) 98 Intake and Output 02/16/19 02/17/19 19:00 07:00 Intake Total 480 ml 240 ml Output Total 750 ml 300 ml Balance -270 ml -60 ml Intake Oral 480 ml 240 ml Output Urine Total 750 ml 300 ml # Voids 3 3 Laboratory Tests 02/17/19 08:50: White Blood Count 11.7H, Red Blood Count 4.45L, Hemoglobin 13.7L, Hematocrit 40.8L, Mean Corpuscular Volume 92, Mean Corpuscular Hemoglobin 30.9, Mean Corpuscular Hemoglobin Concent 33.6, Red Cell Distribution Width 13.1, Platelet Count 485H, Mean Platelet Volume 4.8L, Neutrophils (%) (Auto) 75.5H, Lymphocytes (%) (Auto) 16.8L, Monocytes (%) (Auto) 5.7, Eosinophils (%) (Auto) 1.5, Basophils (%) (Auto) 0.5, Sodium Level 144, Potassium Level 4.1, Chloride Level 106, Carbon Dioxide Level 28, Anion Gap 10, Blood Urea Nitrogen 12, Creatinine 0.6, Estimat Glomerular Filtration Rate , Glucose Level 115H, Calcium Level 9.2 Height (Feet): 5 Height (Inches): 5.00 Weight (Pounds): 138 Neck: supple Cardiovascular: normal rate Respiratory/Chest: lungs clear Abdomen: soft Harvey Gee MD Feb 17, 2019 21:08
[2019-02-18] VITALS: BP 145/83
[2019-02-18 04:00] VITALS: BP 142/74
[2019-02-18] MEDS: NovoLOG Insulin Flexpen SUBQ SCH ×4 (06:11→21:00)
--- NOTE | 2019-02-18 07:30 | NUR ---
HAND-OFF: Report given to RAJI RIOS.
--- NOTE | 2019-02-18 07:30 | NUR ---
NURSE NOTES: Received pt from RAJI MAR. Pt is alert and orient x4. pt is in RA, no SOB or acute respiratory distress noted. pt has intact iv access RH 22g SL. all needs attended, bed is locked and is in the lowest position. call light within easy reach. will continue to monitor.
[2019-02-18 08:00] VITALS: BP 144/83
[2019-02-18] MEDS: Thiamine 100mg tab ORAL SCH (09:28)
[2019-02-18] MEDS: Clarithromycin 500mg tab ORAL SCH ×2 (09:28→21:11)
[2019-02-18] MEDS: Metoprolol 25mg tab ORAL SCH ×2 (09:28→21:11)
--- NOTE | 2019-02-18 09:44 | Nephrology Progress Note ---
Assessment/Plan Problem List: (1) ARF (acute renal failure) (2) Dehydration (3) Acute respiratory failure (4) Esophageal varices (5) GIB (gastrointestinal bleeding) Assessment Acute renal failure , Cr lower now intubated Dehydration Hyperglycemia high Lactate level esophageal bleed GI bleed . Plan tolerating diet switch meds to po as possible- in med surg K and Phos and mag supplement as needed per GI- Monitor lytes and renal parameters PT Subjective ROS Limited/Unobtainable: No Constitutional: Reports: malaise Objective Objective Last 24 Hour Vital Signs Date Time Temp Pulse Resp B/P (MAP) Pulse Ox O2 Delivery O2 Flow Rate FiO2 02/18/19 09:28 98 144/83 02/18/19 08:00 98.5 98 20 144/83 (103) 98 02/18/19 04:00 98.7 95 18 142/74 (96) 99 02/18/19 00:00 97.7 90 18 145/83 (103) 95 02/17/19 21:44 89 131/76 02/17/19 20:42 Room Air 02/17/19 20:03 91 20 97 Room Air 21 02/17/19 20:03 97 Room Air 21 02/17/19 20:00 97.9 103 18 124/74 (91) 96 02/17/19 16:00 98.1 97 18 128/73 (91) 97 02/17/19 12:00 97.9 91 18 133/69 (90) 98 Intake and Output 02/17/19 02/18/19 18:59 06:59 Intake Total 820 ml 600 ml Output Total 600 ml Balance 820 ml 0 ml Intake Oral 820 ml 600 ml Output Urine Total 600 ml # Voids 6 Height (Feet): 5 Height (Inches): 5.00 Weight (Pounds): 150 General Appearance: no apparent distress Objective no change Arturo Cruz MD Feb 18, 2019 09:43
--- NOTE | 2019-02-18 10:38 | General Progress Note ---
Assessment/Plan Problem List: (1) Sepsis ICD Codes: A41.9 - Sepsis, unspecified organism SNOMED: 36356450, 55715921 Qualifiers: Qualified Codes: A41.9 - Sepsis, unspecified organism; R65.20 - Severe sepsis without septic shock; N17.9 - Acute kidney failure, unspecified (2) Sinus tachycardia ICD Codes: R00.0 - Tachycardia, unspecified SNOMED: 39207622 (3) ARF (acute renal failure) ICD Codes: N17.9 - Acute kidney failure, unspecified SNOMED: 63902442 Qualifiers: Qualified Codes: N17.9 - Acute kidney failure, unspecified (4) Lactic acidosis ICD Codes: E87.2 - Acidosis SNOMED: 39107636, 60382979 (5) Esophageal varices ICD Codes: I85.00 - Esophageal varices without bleeding SNOMED: 94869749 Status: progressing, unchanged Assessment/Plan: no need for basal insulin for now continue Novolog sliding scale Subjective Allergies: Coded Allergies: No Known Allergies (Unverified , 02/07/19) All Systems: reviewed and negative except above Subjective events noted glucose values are stable Item Value Date Time Bedside Blood Glucose 97 mg/dl 02/18/19 0611 Bedside Blood Glucose 107 mg/dl 02/17/19 2100 Bedside Blood Glucose 105 mg/dl 02/17/19 1630 Bedside Blood Glucose 118 mg/dl 02/17/19 1231 Bedside Blood Glucose 91 mg/dl 02/17/19 0617 Objective Last 24 Hour Vital Signs Date Time Temp Pulse Resp B/P (MAP) Pulse Ox O2 Delivery O2 Flow Rate FiO2 02/18/19 09:28 98 144/83 02/18/19 09:00 Room Air 02/18/19 08:00 98.5 98 20 144/83 (103) 98 02/18/19 04:00 98.7 95 18 142/74 (96) 99 02/18/19 00:00 97.7 90 18 145/83 (103) 95 02/17/19 21:44 89 131/76 02/17/19 20:42 Room Air 02/17/19 20:03 91 20 97 Room Air 21 02/17/19 20:03 97 Room Air 21 02/17/19 20:00 97.9 103 18 124/74 (91) 96 02/17/19 16:00 98.1 97 18 128/73 (91) 97 02/17/19 12:00 97.9 91 18 133/69 (90) 98 Intake and Output 02/17/19 02/18/19 18:59 06:59 Intake Total 820 ml 600 ml Output Total 600 ml Balance 820 ml 0 ml Intake Oral 820 ml 600 ml Output Urine Total 600 ml # Voids 6 Height (Feet): 5 Height (Inches): 5.00 Weight (Pounds): 150 Neck: normal alignment Cardiovascular: normal rate Respiratory/Chest: lungs clear Abdomen: normal bowel sounds Objective Current Medications Medications (Trade) Dose Ordered Sig/Manish Route PRN Reason Start Time Stop Time Status Last Admin Dose Admin Acetaminophen (Tylenol) 650 mg Q6H PRN ORAL Mild Pain/Temp > 100.5 02/14/19 18:30 03/10/19 18:29 02/16/19 10:10 Amoxicillin (Amoxil) 1,000 mg BID@0630,1630 ORAL 02/15/19 06:30 02/21/19 16:29 02/18/19 06:03 Clarithromycin (Biaxin) 500 mg EVERY 12 HOURS ORAL 02/14/19 21:00 02/21/19 09:59 02/18/19 09:28 Clotrimazole (Lotrimin) 1 applic THREE TIMES A DAY TOPIC 02/14/19 18:00 03/10/19 17:59 02/18/19 09:28 Dextrose (Dextrose 50%) 25 ml Q30M PRN IV Hypoglycemia 02/14/19 08:30 03/10/19 08:29 Dextrose (Dextrose 50%) 50 ml Q30M PRN IV Hypoglycemia 02/14/19 18:30 03/10/19 18:29 Hydralazine HCl (Apresoline) 25 mg Q4H PRN ORAL bp over 160 syst 02/14/19 18:30 03/16/19 18:29 02/17/19 00:04 Insulin Aspart (NovoLOG) AC+HS SUBQ 02/14/19 21:00 03/10/19 11:59 02/17/19 12:31 Metoprolol Tartrate (Lopressor) 25 mg Q12HR ORAL 02/14/19 21:00 03/16/19 20:59 02/18/19 09:28 Pantoprazole (Protonix) 40 mg BID ORAL 02/15/19 09:00 03/17/19 08:59 02/18/19 09:28 Potassium Chloride (K-Dur) 40 meq DAILY ORAL 02/16/19 10:00 03/18/19 09:59 02/18/19 09:29 Thiamine HCl (Vitamin B1) 100 mg DAILY ORAL 02/15/19 09:00 03/17/19 08:59 02/18/19 09:28 Jt Wellington MD Feb 18, 2019 10:38
[2019-02-18 12:00] VITALS: BP 138/77
--- NOTE | 2019-02-18 12:29 | Hematology/Onc Progress Note ---
Assessment/Plan Assessment/Plan # Anemia due to underlying gi bleed, sp egd which showed duodenal ulceration, failed hemostasis --> continue ppi --> coags slightly elevated, nsider vit K if persistent bleeding --> transfuse if hgb <7 --> no indication for surgery --> trend hgb 13-->11.1-->11->12-->13.7 --> if hgb downtrends may need ex lap per surg # Thrombocytosis and Leukocytosis with Sepsis, systemic inflammatory response syndrome --> monitor for improvement --> is on abx, zosyn per id --> per id recs --> wbc 16--.14-->14-->11.7 --> trend plt 465k # DKA with Uncontrolled DM --> on insulin sliding scale --> endo recs reviewed # Lactic acidosis, --> trend as needed, on ivf, thiamine, folate # Acute renal failure improving. --> sp fluids # Onychomycosis and tinea pedis, --> podiatry consulted # Elevated transaminase level due to etoh use --> trend as needed # Acute respiratory failure --> now extubated, breathing better --> on 2l NC The timing of this note does not necessarily reflect the time of the patient was seen. GREATLY APPRECIATE CONSULTATION. Subjective Constitutional: Denies: no symptoms, chills, fever, malaise, weakness, other HEENT: Denies: no symptoms, eye pain, blurred vision, tearing, double vision, ear pain, ear discharge, nose pain, nose congestion, throat pain, throat swelling, mouth pain, mouth swelling, other Cardiovascular: Denies: no symptoms, chest pain, edema, irregular heart rate, lightheadedness, palpitations, syncope, other Gastrointestinal/Abdominal: Denies: no symptoms, abdomen distended, abdominal pain, black stools, tarry stools, blood in stool, constipated, diarrhea, difficulty swallowing, nausea, poor appetite, poor fluid intake, rectal bleeding , vomiting, other Genitourinary: Denies: no symptoms, burning, discharge, frequency, flank pain, hematuria, incontinence, pain, urgency, other Endocrine: Denies: no symptoms, excessive sweating, flushing, intolerance to cold, intolerance to heat, increased hunger, increased thirst, increased urine, unexplained weight gain, unexplained weight loss, other Allergies: Coded Allergies: No Known Allergies (Unverified , 02/07/19) Subjective 02/09: remains intubated, on vent, able to respond, in telugu, to commands weaning today, h/h reviewed 02/10: icu, extubated, labs reviewed 02/12: on 2l nc, h/h reviewed, no bleeding in sdu 02/13: on nc, no events, no blding, a+o x4 02/15: discharged, passing gas, no f/c, no major changes 02/16: no fever or chills, on abx, resting, no acute events 02/17: no f/c, vs stable, no distress, denies pain, on abx 02/18: no major changes, a+o x4, no bleeding or chills Objective Objective Current Medications Medications (Trade) Dose Ordered Sig/Manish Route PRN Reason Start Time Stop Time Status Last Admin Dose Admin Acetaminophen (Tylenol) 650 mg Q6H PRN ORAL Mild Pain/Temp > 100.5 02/14/19 18:30 03/10/19 18:29 02/16/19 10:10 Amoxicillin (Amoxil) 1,000 mg BID@0630,1630 ORAL 02/15/19 06:30 02/21/19 16:29 02/18/19 06:03 Clarithromycin (Biaxin) 500 mg EVERY 12 HOURS ORAL 02/14/19 21:00 02/21/19 09:59 02/18/19 09:28 Clotrimazole (Lotrimin) 1 applic THREE TIMES A DAY TOPIC 02/14/19 18:00 03/10/19 17:59 02/18/19 12:01 Dextrose (Dextrose 50%) 25 ml Q30M PRN IV Hypoglycemia 02/14/19 08:30 03/10/19 08:29 Dextrose (Dextrose 50%) 50 ml Q30M PRN IV Hypoglycemia 02/14/19 18:30 03/10/19 18:29 Hydralazine HCl (Apresoline) 25 mg Q4H PRN ORAL bp over 160 syst 02/14/19 18:30 03/16/19 18:29 02/17/19 00:04 Insulin Aspart (NovoLOG) AC+HS SUBQ 8/27/19 21:00 03/10/19 11:59 02/17/19 12:31 Metoprolol Tartrate (Lopressor) 25 mg Q12HR ORAL 02/14/19 21:00 03/16/19 20:59 02/18/19 09:28 Pantoprazole (Protonix) 40 mg BID ORAL 02/15/19 09:00 03/17/19 08:59 02/18/19 09:28 Potassium Chloride (K-Dur) 40 meq DAILY ORAL 02/16/19 10:00 03/18/19 09:59 02/18/19 09:29 Thiamine HCl (Vitamin B1) 100 mg DAILY ORAL 02/15/19 09:00 03/17/19 08:59 02/18/19 09:28 Last 24 Hour Vital Signs Date Time Temp Pulse Resp B/P (MAP) Pulse Ox O2 Delivery O2 Flow Rate FiO2 02/18/19 12:00 98.4 86 20 138/77 (97) 98 02/18/19 09:28 98 144/83 02/18/19 09:00 Room Air 02/18/19 08:00 98.5 98 20 144/83 (103) 98 02/18/19 04:00 98.7 95 18 142/74 (96) 99 02/18/19 00:00 97.7 90 18 145/83 (103) 95 02/17/19 21:44 89 131/76 02/17/19 20:42 Room Air 02/17/19 20:03 91 20 97 Room Air 21 02/17/19 20:03 97 Room Air 21 02/17/19 20:00 97.9 103 18 124/74 (91) 96 02/17/19 16:00 98.1 97 18 128/73 (91) 97 02/17/19 12:00 97.9 91 18 133/69 (90) 98 02/17/19 09:00 Room Air 02/17/19 08:59 98 Room Air 21 02/17/19 08:59 117 22 98 Room Air 21 02/17/19 08:42 82 133/71 02/17/19 08:00 98.3 82 19 133/71 (91) 98 02/17/19 04:00 98.6 86 20 140/69 (92) 98 02/17/19 00:04 169/88 02/17/19 00:00 98.2 87 20 165/83 (110) 98 02/16/19 21:07 100 158/86 02/16/19 20:34 Room Air 02/16/19 20:05 74 20 98 Nasal Cannula 2.0 28 02/16/19 20:05 98 Room Air 21 02/16/19 20:00 98.2 97 16 144/77 (99) 95 02/16/19 16:00 97.9 79 20 152/71 (98) 99 02/16/19 12:40 96 Room Air 21 02/16/19 12:40 78 20 96 Nasal Cannula 2.0 28 Intake and Output 02/17/19 02/18/19 18:59 06:59 Intake Total 820 ml 600 ml Output Total 600 ml Balance 820 ml 0 ml Intake Oral 820 ml 600 ml Output Urine Total 600 ml # Voids 6 Labs Test 02/17/19 08:50 White Blood Count 11.7 K/UL (4.8-10.8) Red Blood Count 4.45 M/UL (4.70-6.10) Hemoglobin 13.7 G/DL (14.2-18.0) Hematocrit 40.8 % (42.0-52.0) Mean Corpuscular Volume 92 FL (80-99) Mean Corpuscular Hemoglobin 30.9 PG (27.0-31.0) Mean Corpuscular Hemoglobin Concent 33.6 G/DL (32.0-36.0) Red Cell Distribution Width 13.1 % (11.6-14.8) Platelet Count 485 K/UL (150-450) Mean Platelet Volume 4.8 FL (6.5-10.1) Neutrophils (%) (Auto) 75.5 % (45.0-75.0) Lymphocytes (%) (Auto) 16.8 % (20.0-45.0) Monocytes (%) (Auto) 5.7 % (1.0-10.0) Eosinophils (%) (Auto) 1.5 % (0.0-3.0) Basophils (%) (Auto) 0.5 % (0.0-2.0) Sodium Level 144 MMOL/L (136-145) Potassium Level 4.1 MMOL/L (3.5-5.1) Chloride Level 106 MMOL/L (98-107) Carbon Dioxide Level 28 MMOL/L (21-32) Anion Gap 10 mmol/L (5-15) Blood Urea Nitrogen 12 mg/dL (7-18) Creatinine 0.6 MG/DL (0.55-1.30) Estimat Glomerular Filtration Rate mL/min (>60) Glucose Level 115 MG/DL (74-106) Calcium Level 9.2 MG/DL (8.5-10.1) Height (Feet): 5 Height (Inches): 5.00 Weight (Pounds): 150 Objective General Appearance: no acute distress HEENT: mucous membranes moist Respiratory/Chest: lungs clear, 2l nc Cardiovascular: normal rate Abdomen: soft, non tender Extremities: no edema Neurologic/Psychiatric: alert, responsive Hal Smith MD Feb 18, 2019 12:29
--- NOTE | 2019-02-18 15:01 | Cardiac Electrophysiology PN ---
Assessment/Plan Assessment/Plan 1. Sinus tachycardia due to DKA and GI bleed No evidence of atrial fibrillation or any SVT. EF 60%. 2. S/P Respiratory failure, Extubated 3. Acute GI bleed, status post endoscopy by Dr. Conn that showed duodenal ulcer. Biopsy was performed. Patient received 4 units of blood transfusion. The patient had large duodenal bulb ulcer with hemorrhage. No indication for surgery at this time per Dr. Baumann 4. Diabetic ketoacidosis, on insulin 5. Accelerated hypertension. On Lopressor 25 bid and prn Hydralazine DW RN Subjective Subjective No CP or SOB. Placement pending Objective Last 24 Hour Vital Signs Date Time Temp Pulse Resp B/P (MAP) Pulse Ox O2 Delivery O2 Flow Rate FiO2 02/18/19 12:00 98.4 86 20 138/77 (97) 98 02/18/19 09:28 98 144/83 02/18/19 09:00 Room Air 02/18/19 08:00 98.5 98 20 144/83 (103) 98 02/18/19 04:00 98.7 95 18 142/74 (96) 99 02/18/19 00:00 97.7 90 18 145/83 (103) 95 02/17/19 21:44 89 131/76 02/17/19 20:42 Room Air 02/17/19 20:03 91 20 97 Room Air 21 02/17/19 20:03 97 Room Air 21 02/17/19 20:00 97.9 103 18 124/74 (91) 96 02/17/19 16:00 98.1 97 18 128/73 (91) 97 Intake and Output 02/17/19 02/18/19 19:00 07:00 Intake Total 820 ml 600 ml Output Total 600 ml Balance 820 ml 0 ml Intake Oral 820 ml 600 ml Output Urine Total 600 ml # Voids 6 Objective HEAD AND NECK: No JVD. LUNGS: Decreased breath sounds. CARDIOVASCULAR: Nl S1 and S2 with no gallop. ABDOMEN: Soft. EXTREMITIES: No pitting edema poor feet hygiene. Matthew Kent MD Feb 18, 2019 15:01
[2019-02-18 16:00] VITALS: BP 149/82
--- NOTE | 2019-02-18 18:24 | Surgery Progress Note ---
Surgery Progress Note Subjective Symptoms: improved, pain absent, tolerating diet, voiding well, passing flatus Objective Last 24 Hour Vital Signs Date Time Temp Pulse Resp B/P (MAP) Pulse Ox O2 Delivery O2 Flow Rate FiO2 02/18/19 16:00 98.6 97 20 149/82 (104) 98 02/18/19 12:00 98.4 86 20 138/77 (97) 98 02/18/19 09:28 98 144/83 02/18/19 09:00 Room Air 02/18/19 08:00 98.5 98 20 144/83 (103) 98 02/18/19 04:00 98.7 95 18 142/74 (96) 99 02/18/19 00:00 97.7 90 18 145/83 (103) 95 02/17/19 21:44 89 131/76 02/17/19 20:42 Room Air 02/17/19 20:03 91 20 97 Room Air 21 02/17/19 20:03 97 Room Air 21 02/17/19 20:00 97.9 103 18 124/74 (91) 96 I&O Intake and Output 02/17/19 02/18/19 19:00 07:00 Intake Total 820 ml 600 ml Output Total 600 ml Balance 820 ml 0 ml Intake Oral 820 ml 600 ml Output Urine Total 600 ml # Voids 6 Cardiovascular: RSR Respiratory: clear Abdomen: soft, distended, non-tender, present bowel sounds Extremities: no tenderness, no cyanosis, other Plan Problems: (1) GIB (gastrointestinal bleeding) Assessment & Plan: 69-year-old male with acute gastrointestinal hemorrhage secondary to large duodenal ulcer. Patient had endoscopy with hemostasis just now identified a large ulcer with potential to rebleed. Need to control patient's hypertension and allow for even permissive hypotension if necessary h/h stable overall doing better labs stable now exam stable Will follow and be available in case patient rebleeds at which time he will require an exploration thank you for allowing me to participate in patient's care d/c planning will follow with recommendations Adelso Baumann Feb 18, 2019 18:24
--- NOTE | 2019-02-18 19:19 | NUR ---
HAND-OFF: Report given to ZAID ALEGRIA.
[2019-02-18 20:00] VITALS: BP 169/84
--- NOTE | 2019-02-18 20:00 | NUR ---
NURSE NOTES: RECEIVED PATIENT LYING IN BED, AWAKE, ALERT/ORIENTED X3, ABLE TO VERBALIZE NEEDS, DENIES PAIN. NO SIGNS AND SYMPTOMS OF ACUTE CARDIO RESPIRATORY DISTRESS/SHORTNESS OF BREATH, DENIES CHEST PAIN, NO PERIPHERAL EDEMA NOTED. ABDOMEN SOFT/NON DISTENDED/BOWEL SOUNDS AUDIBLE, NO REPORT OF GI DISTRESS, NO N/V/D, NO ACTIVE BLEEDING. SIDE RAILS UP X3/BED IN LOWEST POSITION FOR SAFETY, CALL LIGHT WITHIN REACH, ENCOURAGED PATIENT TO UTILIZE CALL LIGHT FOR ASSISTANCE, VERBALIZED UNDERSTANDING. NAD. DISCHARGE PLANNING ONGOING.
--- NOTE | 2019-02-18 22:07 | General Progress Note ---
Assessment/Plan Problem List: (1) ARF (acute renal failure) ICD Codes: N17.9 - Acute kidney failure, unspecified SNOMED: 54461215 Qualifiers: Qualified Codes: N17.9 - Acute kidney failure, unspecified (2) Sepsis ICD Codes: A41.9 - Sepsis, unspecified organism SNOMED: 08962038, 27816552 Qualifiers: Qualified Codes: A41.9 - Sepsis, unspecified organism; R65.20 - Severe sepsis without septic shock; N17.9 - Acute kidney failure, unspecified (3) Lactic acidosis ICD Codes: E87.2 - Acidosis SNOMED: 63465069, 70869215 (4) Anemia ICD Codes: D64.9 - Anemia, unspecified SNOMED: 813019587 (5) DKA (diabetic ketoacidoses) ICD Codes: E11.10 - Type 2 diabetes mellitus with ketoacidosis without coma SNOMED: 713106138, 90680793 Qualifiers: Qualified Codes: E13.10 - Other specified diabetes mellitus with ketoacidosis without coma (6) GIB (gastrointestinal bleeding) ICD Codes: K92.2 - Gastrointestinal hemorrhage, unspecified SNOMED: 47289951 (7) Acute respiratory failure ICD Codes: J96.00 - Acute respiratory failure, unspecified whether with hypoxia or hypercapnia SNOMED: 02460349 (8) Dehydration ICD Codes: E86.0 - Dehydration SNOMED: 33870412, 75463017 Status: progressing, unchanged Assessment/Plan: gi bleed no bleeding h/h stable diet advanced per gi unable to care for himself so wrote to dc to safe place Subjective ROS Limited/Unobtainable: Yes Allergies: Coded Allergies: No Known Allergies (Unverified , 02/07/19) Objective Last 24 Hour Vital Signs Date Time Temp Pulse Resp B/P (MAP) Pulse Ox O2 Delivery O2 Flow Rate FiO2 02/18/19 21:11 95 160/80 02/18/19 20:05 96 Room Air 21 02/18/19 20:04 97 20 96 Room Air 21 02/18/19 16:00 98.6 97 20 149/82 (104) 98 02/18/19 12:00 98.4 86 20 138/77 (97) 98 02/18/19 09:28 98 144/83 02/18/19 09:00 Room Air 02/18/19 08:00 98.5 98 20 144/83 (103) 98 02/18/19 04:00 98.7 95 18 142/74 (96) 99 02/18/19 00:00 97.7 90 18 145/83 (103) 95 Intake and Output 02/17/19 02/18/19 19:00 07:00 Intake Total 820 ml 600 ml Output Total 600 ml Balance 820 ml 0 ml Intake Oral 820 ml 600 ml Output Urine Total 600 ml # Voids 6 Height (Feet): 5 Height (Inches): 5.00 Weight (Pounds): 150 Cardiovascular: normal rate Respiratory/Chest: lungs clear Abdomen: soft Harvey Gee MD Feb 18, 2019 22:07
[2019-02-19] VITALS: BP 148/74
[2019-02-19 04:00] VITALS: BP 166/81
[2019-02-19] MEDS: NovoLOG Insulin Flexpen SUBQ SCH ×4 (06:09→20:25)
--- NOTE | 2019-02-19 06:13 | NUR ---
NURSE NOTES: RESTED WELL THROUGHOUT THE NIGHT, NO SIGNIFICANT CHANGE OF CONDITION NOTED THROUGHOUT THE NIGHT. SAFETY MAINTAINED. NAD.
--- NOTE | 2019-02-19 06:46 | General Progress Note ---
Assessment/Plan Problem List: (1) GIB (gastrointestinal bleeding) ICD Codes: K92.2 - Gastrointestinal hemorrhage, unspecified SNOMED: 43016183 Status: progressing, unchanged Assessment/Plan: stable H&H on diet cont protonix treat for HP no recurrent bleed Subjective ROS Limited/Unobtainable: Yes Allergies: Coded Allergies: No Known Allergies (Unverified , 02/07/19) Objective Last 24 Hour Vital Signs Date Time Temp Pulse Resp B/P (MAP) Pulse Ox O2 Delivery O2 Flow Rate FiO2 02/19/19 04:00 97.7 93 20 166/81 (109) 100 02/19/19 00:00 97.7 85 18 148/74 (98) 96 02/18/19 21:11 95 160/80 02/18/19 21:00 Room Air 02/18/19 20:05 96 Room Air 21 02/18/19 20:04 97 20 96 Room Air 21 02/18/19 20:00 98.0 100 20 169/84 (112) 96 02/18/19 16:00 98.6 97 20 149/82 (104) 98 02/18/19 12:00 98.4 86 20 138/77 (97) 98 02/18/19 09:28 98 144/83 02/18/19 09:00 Room Air 02/18/19 08:00 98.5 98 20 144/83 (103) 98 Intake and Output 02/18/19 02/19/19 19:00 07:00 Intake Total 600 ml 360 ml Output Total 550 ml 650 ml Balance 50 ml -290 ml Intake Oral 600 ml 360 ml Output Urine Total 550 ml 650 ml # Voids 2 2 Height (Feet): 5 Height (Inches): 5.00 Weight (Pounds): 141 General Appearance: alert EENT: normal ENT inspection Neck: supple Cardiovascular: normal rate Respiratory/Chest: decreased breath sounds Abdomen: normal bowel sounds, non tender, soft Extremities: non-tender Kj Conn MD Feb 19, 2019 06:46
--- NOTE | 2019-02-19 07:25 | NUR ---
NURSE NOTES: Report received from Trisha ALEGRIA, rounds made. Patient alert, oriented x3, calm, Hungarian speaking. No distress on RA. Right hand heplock intact, site asymptomatic. Denies pain. Bilateral SCDs off. Air mattress in place. Skin assessed, dry/flaky to pedal, no redness or open areas to sacral/coccyx area, intact. Call light in reach, bed in lowest position, no s/s of hypo/hyperglycemia, will continue to monitor.
--- NOTE | 2019-02-19 07:42 | NUR ---
HAND-OFF: Report given to RAJI CRUZ.
[2019-02-19 08:00] VITALS: BP 141/79
[2019-02-19] MEDS: Thiamine 100mg tab ORAL SCH (09:21)
[2019-02-19] MEDS: Clarithromycin 500mg tab ORAL SCH ×2 (09:21→20:23)
[2019-02-19] MEDS: Metoprolol 25mg tab ORAL SCH ×2 (09:21→20:23)
--- NOTE | 2019-02-19 09:35 | NUR ---
NURSE NOTES: Pedal skin care provided, cleanse in between each toe (nails thick and hard) and dried thoroughly, applied Lotrim cream as ordered, skin dry/flaky, in between toes and heels intact, no redness. Will continue to monitor.
--- NOTE | 2019-02-19 10:01 | General Progress Note ---
Assessment/Plan Problem List: (1) Sepsis ICD Codes: A41.9 - Sepsis, unspecified organism SNOMED: 33173648, 70141228 Qualifiers: Qualified Codes: A41.9 - Sepsis, unspecified organism; R65.20 - Severe sepsis without septic shock; N17.9 - Acute kidney failure, unspecified (2) Sinus tachycardia ICD Codes: R00.0 - Tachycardia, unspecified SNOMED: 12911901 (3) ARF (acute renal failure) ICD Codes: N17.9 - Acute kidney failure, unspecified SNOMED: 12544020 Qualifiers: Qualified Codes: N17.9 - Acute kidney failure, unspecified (4) Lactic acidosis ICD Codes: E87.2 - Acidosis SNOMED: 04824887, 91595301 (5) Esophageal varices ICD Codes: I85.00 - Esophageal varices without bleeding SNOMED: 61886658 Status: progressing, unchanged Assessment/Plan: no need for basal insulin for now continue Novolog sliding scale Subjective Allergies: Coded Allergies: No Known Allergies (Unverified , 02/07/19) All Systems: reviewed and negative except above Subjective events noted glucose values are stable Item Value Date Time Bedside Blood Glucose 137 mg/dl H 02/19/19 0644 Bedside Blood Glucose 92 mg/dl 02/18/19 2112 Bedside Blood Glucose 171 mg/dl H 02/18/19 1703 Bedside Blood Glucose 107 mg/dl 02/18/19 1130 Bedside Blood Glucose 97 mg/dl 02/18/19 0611 Objective Last 24 Hour Vital Signs Date Time Temp Pulse Resp B/P (MAP) Pulse Ox O2 Delivery O2 Flow Rate FiO2 02/19/19 09:21 96 141/79 02/19/19 08:00 97.9 96 18 141/79 (99) 96 02/19/19 04:00 97.7 93 20 166/81 (109) 100 02/19/19 00:00 97.7 85 18 148/74 (98) 96 02/18/19 21:11 95 160/80 02/18/19 21:00 Room Air 02/18/19 20:05 96 Room Air 21 02/18/19 20:04 97 20 96 Room Air 21 02/18/19 20:00 98.0 100 20 169/84 (112) 96 02/18/19 16:00 98.6 97 20 149/82 (104) 98 02/18/19 12:00 98.4 86 20 138/77 (97) 98 Intake and Output 02/18/19 02/19/19 19:00 07:00 Intake Total 600 ml 360 ml Output Total 550 ml 650 ml Balance 50 ml -290 ml Intake Oral 600 ml 360 ml Output Urine Total 550 ml 650 ml # Voids 2 2 Height (Feet): 5 Height (Inches): 5.00 Weight (Pounds): 141 General Appearance: no apparent distress Neck: normal alignment Cardiovascular: normal rate Respiratory/Chest: lungs clear Abdomen: normal bowel sounds Objective Current Medications Medications (Trade) Dose Ordered Sig/Manish Route PRN Reason Start Time Stop Time Status Last Admin Dose Admin Acetaminophen (Tylenol) 650 mg Q6H PRN ORAL Mild Pain/Temp > 100.5 02/14/19 18:30 03/10/19 18:29 02/16/19 10:10 Amoxicillin (Amoxil) 1,000 mg BID@0630,1630 ORAL 02/15/19 06:30 02/21/19 16:29 02/19/19 06:05 Clarithromycin (Biaxin) 500 mg EVERY 12 HOURS ORAL 02/14/19 21:00 02/21/19 09:59 02/19/19 09:21 Clotrimazole (Lotrimin) 1 applic THREE TIMES A DAY TOPIC 02/14/19 18:00 03/10/19 17:59 02/19/19 09:22 Dextrose (Dextrose 50%) 25 ml Q30M PRN IV Hypoglycemia 02/14/19 08:30 03/10/19 08:29 Dextrose (Dextrose 50%) 50 ml Q30M PRN IV Hypoglycemia 02/14/19 18:30 03/10/19 18:29 Hydralazine HCl (Apresoline) 25 mg Q4H PRN ORAL bp over 160 syst 02/14/19 18:30 03/16/19 18:29 02/17/19 00:04 Insulin Aspart (NovoLOG) AC+HS SUBQ 02/14/19 21:00 03/10/19 11:59 02/19/19 06:09 Metoprolol Tartrate (Lopressor) 25 mg Q12HR ORAL 02/14/19 21:00 03/16/19 20:59 9/1/19 09:21 Pantoprazole (Protonix) 40 mg BID ORAL 02/15/19 09:00 03/17/19 08:59 02/19/19 09:21 Potassium Chloride (K-Dur) 40 meq DAILY ORAL 02/16/19 10:00 03/18/19 09:59 02/19/19 09:21 Thiamine HCl (Vitamin B1) 100 mg DAILY ORAL 02/15/19 09:00 03/17/19 08:59 02/19/19 09:21 Jt Wellington MD Feb 19, 2019 10:01
--- NOTE | 2019-02-19 11:32 | Surgery Progress Note ---
Surgery Progress Note Subjective Additional Comments no acute events comfortable stable Objective Last 24 Hour Vital Signs Date Time Temp Pulse Resp B/P (MAP) Pulse Ox O2 Delivery O2 Flow Rate FiO2 02/19/19 09:21 96 141/79 02/19/19 09:00 Room Air 02/19/19 08:00 97.9 96 18 141/79 (99) 96 02/19/19 04:00 97.7 93 20 166/81 (109) 100 02/19/19 00:00 97.7 85 18 148/74 (98) 96 02/18/19 21:11 95 160/80 02/18/19 21:00 Room Air 02/18/19 20:05 96 Room Air 21 02/18/19 20:04 97 20 96 Room Air 21 02/18/19 20:00 98.0 100 20 169/84 (112) 96 02/18/19 16:00 98.6 97 20 149/82 (104) 98 02/18/19 12:00 98.4 86 20 138/77 (97) 98 I&O Intake and Output 02/18/19 02/19/19 19:00 07:00 Intake Total 600 ml 360 ml Output Total 550 ml 650 ml Balance 50 ml -290 ml Intake Oral 600 ml 360 ml Output Urine Total 550 ml 650 ml # Voids 2 2 Cardiovascular: RSR Respiratory: clear Abdomen: soft, non-tender, present bowel sounds, other Extremities: no cyanosis Plan Problems: (1) GIB (gastrointestinal bleeding) Assessment & Plan: 69-year-old male with acute gastrointestinal hemorrhage secondary to large duodenal ulcer. Patient had endoscopy with hemostasis just now identified a large ulcer with potential to rebleed. Need to control patient's hypertension and allow for even permissive hypotension if necessary h/h stable overall doing better labs stable now exam stable Will follow and be available in case patient rebleeds at which time he will require an exploration thank you for allowing me to participate in patient's care d/c planning will follow with recommendations Adelso Baumann Feb 19, 2019 11:32
[2019-02-19 12:00] VITALS: BP 153/75
--- NOTE | 2019-02-19 13:32 | Infectious Diseases Prog Note ---
Assessment/Plan Assessment/Plan IMPRESSION: Sepsis, systemic inflammatory response syndrome, Leukocytosis GI bleeding Duodenal ulcer. Uncontrolled DM Lactic acidosis, Acute renal failure resolved Onychomycosis tinea pedis treated anemia, received blood transfusion, Elevated transaminase level. Acute respiratory failure resolved H. pylori infection RECOMMENDATION: Discontinue topical clotrimazole Continue Amoxicillin, Biaxin & Protonix Subjective ROS Limited/Unobtainable: Yes Constitutional: Denies: fever Allergies: Coded Allergies: No Known Allergies (Unverified , 02/07/19) Objective Vital Signs Last 24 Hour Vital Signs Date Time Temp Pulse Resp B/P (MAP) Pulse Ox O2 Delivery O2 Flow Rate FiO2 02/19/19 12:00 97.6 82 18 153/75 (101) 99 02/19/19 09:21 96 141/79 02/19/19 09:00 Room Air 02/19/19 08:00 97.9 96 18 141/79 (99) 96 02/19/19 04:00 97.7 93 20 166/81 (109) 100 02/19/19 00:00 97.7 85 18 148/74 (98) 96 02/18/19 21:11 95 160/80 02/18/19 21:00 Room Air 02/18/19 20:05 96 Room Air 21 02/18/19 20:04 97 20 96 Room Air 21 02/18/19 20:00 98.0 100 20 169/84 (112) 96 02/18/19 16:00 98.6 97 20 149/82 (104) 98 Height (Feet): 5 Height (Inches): 5.00 Weight (Pounds): 141 General Appearance: no acute distress HEENT: mucous membranes moist Respiratory/Chest: lungs clear Cardiovascular: normal rate Abdomen: soft, non tender Extremities: no edema Neurologic/Psychiatric: other - sleeping Current Medications Medications (Trade) Dose Ordered Sig/Manish Route PRN Reason Start Time Stop Time Status Last Admin Dose Admin Acetaminophen (Tylenol) 650 mg Q6H PRN ORAL Mild Pain/Temp > 100.5 02/14/19 18:30 03/10/19 18:29 02/16/19 10:10 Amoxicillin (Amoxil) 1,000 mg BID@0630,1630 ORAL 02/15/19 06:30 02/21/19 16:29 02/19/19 06:05 Clarithromycin (Biaxin) 500 mg EVERY 12 HOURS ORAL 02/14/19 21:00 02/21/19 09:59 02/19/19 09:21 Clotrimazole (Lotrimin) 1 applic THREE TIMES A DAY TOPIC 02/14/19 18:00 03/10/19 17:59 02/19/19 09:22 Dextrose (Dextrose 50%) 25 ml Q30M PRN IV Hypoglycemia 02/14/19 08:30 03/10/19 08:29 Dextrose (Dextrose 50%) 50 ml Q30M PRN IV Hypoglycemia 02/14/19 18:30 03/10/19 18:29 Hydralazine HCl (Apresoline) 25 mg Q4H PRN ORAL bp over 160 syst 02/14/19 18:30 03/16/19 18:29 02/17/19 00:04 Insulin Aspart (NovoLOG) AC+HS SUBQ 02/14/19 21:00 03/10/19 11:59 02/19/19 06:09 Metoprolol Tartrate (Lopressor) 25 mg Q12HR ORAL 02/14/19 21:00 03/16/19 20:59 02/19/19 09:21 Pantoprazole (Protonix) 40 mg BID ORAL 02/15/19 09:00 03/17/19 08:59 02/19/19 09:21 Potassium Chloride (K-Dur) 40 meq DAILY ORAL 02/16/19 10:00 03/18/19 09:59 02/19/19 09:21 Thiamine HCl (Vitamin B1) 100 mg DAILY ORAL 02/15/19 09:00 03/17/19 08:59 02/19/19 09:21 Fazal Basilio MD Feb 19, 2019 13:32
[2019-02-19 16:00] VITALS: BP 150/80
--- NOTE | 2019-02-19 16:02 | Cardiac Electrophysiology PN ---
Assessment/Plan Assessment/Plan 1. Sinus tachycardia due to DKA and GI bleed No evidence of atrial fibrillation or SVT. EF 60%. 2. S/P Respiratory failure, Extubated 3. Acute GI bleed, status post endoscopy by Dr. Conn that showed duodenal ulcer. Also received 4 units of blood transfusion. No indication for surgery at this time per Dr. Baumann 4. Diabetic ketoacidosis, on insulin 5. Accelerated hypertension. On Lopressor 25 bid and prn Hydralazine DW RN Subjective Subjective No CP or SOB ion NAD. RN at bedside. Placement pending Objective Last 24 Hour Vital Signs Date Time Temp Pulse Resp B/P (MAP) Pulse Ox O2 Delivery O2 Flow Rate FiO2 02/19/19 12:00 97.6 82 18 153/75 (101) 99 02/19/19 09:21 96 141/79 02/19/19 09:00 Room Air 02/19/19 08:00 97.9 96 18 141/79 (99) 96 02/19/19 04:00 97.7 93 20 166/81 (109) 100 02/19/19 00:00 97.7 85 18 148/74 (98) 96 02/18/19 21:11 95 160/80 02/18/19 21:00 Room Air 02/18/19 20:05 96 Room Air 21 02/18/19 20:04 97 20 96 Room Air 21 02/18/19 20:00 98.0 100 20 169/84 (112) 96 Intake and Output 02/18/19 02/19/19 18:59 06:59 Intake Total 600 ml 360 ml Output Total 550 ml 650 ml Balance 50 ml -290 ml Intake Oral 600 ml 360 ml Output Urine Total 550 ml 650 ml # Voids 2 2 Objective HEAD AND NECK: No JVD. LUNGS: Decreased breath sounds. CARDIOVASCULAR: Nl S1 and S2 with no gallop. ABDOMEN: Soft. EXTREMITIES: No pitting edema poor feet hygiene. Matthew Kent MD Feb 19, 2019 16:02
--- NOTE | 2019-02-19 17:07 | Nephrology Progress Note ---
Assessment/Plan Problem List: (1) ARF (acute renal failure) (2) Dehydration (3) Acute respiratory failure (4) Esophageal varices (5) GIB (gastrointestinal bleeding) Assessment Acute renal failure , Cr lower now intubated Dehydration Hyperglycemia high Lactate level esophageal bleed GI bleed . Plan no labs today tolerating diet switch meds to po as possible- in med surg K and Phos and mag supplement as needed per GI- Monitor lytes and renal parameters PT Subjective ROS Limited/Unobtainable: No Constitutional: Reports: malaise Objective Objective Last 24 Hour Vital Signs Date Time Temp Pulse Resp B/P (MAP) Pulse Ox O2 Delivery O2 Flow Rate FiO2 02/19/19 12:00 97.6 82 18 153/75 (101) 99 02/19/19 09:21 96 141/79 02/19/19 09:00 Room Air 02/19/19 08:00 97.9 96 18 141/79 (99) 96 02/19/19 04:00 97.7 93 20 166/81 (109) 100 02/19/19 00:00 97.7 85 18 148/74 (98) 96 02/18/19 21:11 95 160/80 02/18/19 21:00 Room Air 02/18/19 20:05 96 Room Air 21 02/18/19 20:04 97 20 96 Room Air 21 02/18/19 20:00 98.0 100 20 169/84 (112) 96 Intake and Output 02/18/19 02/19/19 18:59 06:59 Intake Total 600 ml 360 ml Output Total 550 ml 650 ml Balance 50 ml -290 ml Intake Oral 600 ml 360 ml Output Urine Total 550 ml 650 ml # Voids 2 2 Height (Feet): 5 Height (Inches): 5.00 Weight (Pounds): 141 General Appearance: no apparent distress Objective no change Arturo Cruz MD Feb 19, 2019 17:07
--- NOTE | 2019-02-19 19:19 | NUR ---
HAND-OFF: Report given to Trisha ALEGRIA.
[2019-02-19 20:00] VITALS: BP 159/88
--- NOTE | 2019-02-19 20:00 | NUR ---
NURSE NOTES: RECEIVED PATIENT LYING IN BED, AWAKE, ALERT/ORIENTED X2 PERSON/PLACE, REALITY ORIENTATION PROVIDED DURING ASSESSMENT, DENIES PAIN. NO SIGNS AND SYMPTOMS OF ACUTE CARDIO RESPIRATORY DISTRESS/SHORTNESS OF BREATH, NO PERIPHERAL EDEMA NOTED. NO REPORT OF GI DISCOMFORT,NO N/V/D. SIDE RAILS UP X3/BED IN LOWEST POSITION FOR SAFETY. CALL LIGHT WITHIN REACH. CONTINUE WITH CURRENT PLAN OF CARE. NAD.
--- NOTE | 2019-02-19 20:22 | General Progress Note ---
Assessment/Plan Problem List: (1) ARF (acute renal failure) ICD Codes: N17.9 - Acute kidney failure, unspecified SNOMED: 43657664 Qualifiers: Qualified Codes: N17.9 - Acute kidney failure, unspecified (2) Sepsis ICD Codes: A41.9 - Sepsis, unspecified organism SNOMED: 05628193, 34613762 Qualifiers: Qualified Codes: A41.9 - Sepsis, unspecified organism; R65.20 - Severe sepsis without septic shock; N17.9 - Acute kidney failure, unspecified (3) Lactic acidosis ICD Codes: E87.2 - Acidosis SNOMED: 24405697, 77501547 (4) Anemia ICD Codes: D64.9 - Anemia, unspecified SNOMED: 748623648 (5) DKA (diabetic ketoacidoses) ICD Codes: E11.10 - Type 2 diabetes mellitus with ketoacidosis without coma SNOMED: 109322977, 35238819 Qualifiers: Qualified Codes: E13.10 - Other specified diabetes mellitus with ketoacidosis without coma (6) GIB (gastrointestinal bleeding) ICD Codes: K92.2 - Gastrointestinal hemorrhage, unspecified SNOMED: 50506784 (7) Acute respiratory failure ICD Codes: J96.00 - Acute respiratory failure, unspecified whether with hypoxia or hypercapnia SNOMED: 61672484 (8) Dehydration ICD Codes: E86.0 - Dehydration SNOMED: 34908403, 48970339 Status: progressing, unchanged Assessment/Plan: gi bleed venous status poor hygien of feet diet advanced per gi so wrote to dc to safe place Subjective ROS Limited/Unobtainable: Yes Allergies: Coded Allergies: No Known Allergies (Unverified , 02/07/19) Objective Last 24 Hour Vital Signs Date Time Temp Pulse Resp B/P (MAP) Pulse Ox O2 Delivery O2 Flow Rate FiO2 02/19/19 16:00 97.9 79 20 150/80 (103) 98 02/19/19 12:00 97.6 82 18 153/75 (101) 99 02/19/19 09:21 96 141/79 02/19/19 09:00 Room Air 02/19/19 08:00 97.9 96 18 141/79 (99) 96 02/19/19 04:00 97.7 93 20 166/81 (109) 100 02/19/19 00:00 97.7 85 18 148/74 (98) 96 02/18/19 21:11 95 160/80 02/18/19 21:00 Room Air Intake and Output 02/18/19 02/19/19 19:00 07:00 Intake Total 600 ml 360 ml Output Total 550 ml 650 ml Balance 50 ml -290 ml Intake Oral 600 ml 360 ml Output Urine Total 550 ml 650 ml # Voids 2 2 Height (Feet): 5 Height (Inches): 5.00 Weight (Pounds): 141 Cardiovascular: normal rate Respiratory/Chest: lungs clear Abdomen: soft Harvey Gee MD Feb 19, 2019 20:22
[2019-02-20] VITALS (7 sets, daily range): BP systolic 106–165; BP diastolic 65–94
--- NOTE | 2019-02-20 06:13 | NUR ---
NURSE NOTES:RESTED WELL, NO SIGNIFICANT CHANGE OF CONDITION NOTED THROUGHOUT THE NIGHT. SAFETY MAINTAINED. NAD.
[2019-02-20] MEDS: NovoLOG Insulin Flexpen SUBQ SCH ×5 (06:14→20:31)
--- NOTE | 2019-02-20 07:30 | NUR ---
NURSE NOTES: HANDOFF RECEIVED FROM RAJI MAR. PATIENT RECEIVED AWAKE AND ABLE TO MAKE NEEDS KNOWN. PATIENT HAS NO OBVIOUS SIGNS OF DISTRESS. IV SITE IS CLEAN DRY AND INTACT, SALINE LOCKED. BED IN THE LOW AND LOCKED POSITION AND PATIENT HAS CALL LIGHT WITHIN REACH. W9 Addendum: 02/20/19 at 1000 by Shady Tejada RN W9 IS A TYPING ERROR. IGNORE
[2019-02-20 07:41] LABS: BASOPHILS % (AUTO) 1.5 % (0.0-2.0); EOSINOPHILS % (AUTO) 3.1 % (0.0-3.0); HEMATOCRIT 37.4 % (42.0-52.0); HEMOGLOBIN 13.3 G/DL (14.2-18.0); LYMPHOCYTES % (AUTO) 20.7 % (20.0-45.0); MEAN CORPUSCULAR VOLUME 89 FL (80-99); MONOCYTES % (AUTO) 8.2 % (1.0-10.0); NEUTROPHILS % (AUTO) 66.5 % (45.0-75.0); PLATELET COUNT 453 K/UL (150-450); RED BLOOD COUNT 4.21 M/UL (4.70-6.10); RED CELL DISTRIBUTION WIDTH 13.5 % (11.6-14.8)
--- NOTE | 2019-02-20 08:06 | NUR ---
HAND-OFF: Report given to marie foreman.
[2019-02-20 08:14] LABS: ALANINE AMINOTRANSFERASE 61 U/L (12-78); ALBUMIN 2.6 G/DL (3.4-5.0); ALBUMIN/GLOBULIN RATIO 0.6 (1.0-2.7); ALKALINE PHOSPHATASE 64 U/L (46-116); ANION GAP 10 mmol/L (5-15); ASPARTATE AMINO TRANSFERASE 40 U/L (15-37); BILIRUBIN,TOTAL 0.4 MG/DL (0.2-1.0); BLOOD UREA NITROGEN 13 mg/dL (7-18); CALCIUM 9.2 MG/DL (8.5-10.1); CARBON DIOXIDE 27 MMOL/L (21-32); CHLORIDE 105 MMOL/L (98-107); CREATININE 0.6 MG/DL (0.55-1.30); SODIUM 142 MMOL/L (136-145)
[2019-02-20] MEDS: Clarithromycin 500mg tab ORAL SCH ×2 (09:06→20:24)
[2019-02-20] MEDS: Metoprolol 25mg tab ORAL SCH ×2 (09:06→20:24)
[2019-02-20] MEDS: Thiamine 100mg tab ORAL SCH (09:07)
--- NOTE | 2019-02-20 10:14 | Nephrology Progress Note ---
Assessment/Plan Problem List: (1) ARF (acute renal failure) (2) Dehydration (3) Acute respiratory failure (4) Esophageal varices (5) GIB (gastrointestinal bleeding) Assessment Acute renal failure , Cr lower now intubated Dehydration Hyperglycemia high Lactate level esophageal bleed GI bleed . Plan today's labs noted tolerating diet switch meds to po as possible- in med surg K and Phos and mag supplement as needed per GI- Monitor lytes and renal parameters PT Subjective ROS Limited/Unobtainable: No Objective Objective Last 24 Hour Vital Signs Date Time Temp Pulse Resp B/P (MAP) Pulse Ox O2 Delivery O2 Flow Rate FiO2 02/20/19 09:06 98 106/94 02/20/19 09:00 Room Air 02/20/19 08:00 97.5 98 18 106/94 (98) 97 02/20/19 04:00 97.9 88 18 157/72 (100) 98 02/20/19 00:00 97.5 81 18 152/76 (101) 99 02/19/19 21:00 Room Air 02/19/19 21:00 97.9 02/19/19 20:49 96 Room Air 21 02/19/19 20:49 89 16 96 Room Air 21 02/19/19 20:23 91 159/88 02/19/19 20:00 97.9 91 18 159/88 (111) 98 02/19/19 16:00 97.9 79 20 150/80 (103) 98 02/19/19 12:00 97.6 82 18 153/75 (101) 99 Intake and Output 02/19/19 02/20/19 19:00 07:00 Intake Total 540 ml 360 ml Output Total 1200 ml 500 ml Balance -660 ml -140 ml Intake Oral 540 ml 360 ml Output Urine Total 1200 ml 500 ml # Voids 5 Laboratory Tests 02/20/19 06:30: White Blood Count 8.0, Red Blood Count 4.21L, Hemoglobin 13.3L, Hematocrit 37.4L , Mean Corpuscular Volume 89, Mean Corpuscular Hemoglobin 31.6H, Mean Corpuscular Hemoglobin Concent 35.6, Red Cell Distribution Width 13.5, Platelet Count 453H, Mean Platelet Volume 4.6L, Neutrophils (%) (Auto) 66.5, Lymphocytes (%) (Auto) 20.7, Monocytes (%) (Auto) 8.2, Eosinophils (%) (Auto) 3.1H, Basophils (%) (Auto) 1.5, Sodium Level 142, Potassium Level 4.0, Chloride Level 105, Carbon Dioxide Level 27, Anion Gap 10, Blood Urea Nitrogen 13, Creatinine 0.6, Estimat Glomerular Filtration Rate , Glucose Level 107H, Calcium Level 9.2 , Total Bilirubin 0.4, Aspartate Amino Transf (AST/SGOT) 40H, Alanine Aminotransferase (ALT/SGPT) 61, Alkaline Phosphatase 64, Total Protein 7.3, Albumin 2.6L, Globulin 4.7, Albumin/Globulin Ratio 0.6L Height (Feet): 5 Height (Inches): 5.00 Weight (Pounds): 140 General Appearance: no apparent distress Objective no change Arturo Cruz MD Feb 20, 2019 10:14
--- NOTE | 2019-02-20 11:12 | Infectious Diseases Prog Note ---
Assessment/Plan Assessment/Plan IMPRESSION: Sepsis, systemic inflammatory response syndrome, Leukocytosis GI bleeding Duodenal ulcer. Uncontrolled DM Lactic acidosis, Acute renal failure resolved Onychomycosis tinea pedis treated anemia, received blood transfusion, Elevated transaminase level. Acute respiratory failure resolved H. pylori infection RECOMMENDATION: Continue Amoxicillin, Biaxin & Protonix Subjective ROS Limited/Unobtainable: Yes Constitutional: Reports: no symptoms Musculoskeletal: Reports: pain, other - in both feet Allergies: Coded Allergies: No Known Allergies (Unverified , 02/07/19) Objective Vital Signs Last 24 Hour Vital Signs Date Time Temp Pulse Resp B/P (MAP) Pulse Ox O2 Delivery O2 Flow Rate FiO2 02/20/19 09:06 98 106/94 02/20/19 09:00 Room Air 02/20/19 08:00 97.5 98 18 106/94 (98) 97 02/20/19 04:00 97.9 88 18 157/72 (100) 98 02/20/19 00:00 97.5 81 18 152/76 (101) 99 02/19/19 21:00 Room Air 02/19/19 21:00 97.9 02/19/19 20:49 96 Room Air 21 02/19/19 20:49 89 16 96 Room Air 21 02/19/19 20:23 91 159/88 02/19/19 20:00 97.9 91 18 159/88 (111) 98 02/19/19 16:00 97.9 79 20 150/80 (103) 98 02/19/19 12:00 97.6 82 18 153/75 (101) 99 Height (Feet): 5 Height (Inches): 5.00 Weight (Pounds): 140 General Appearance: no acute distress HEENT: mucous membranes moist Respiratory/Chest: normal breath sounds Cardiovascular: normal rate Abdomen: soft, non tender Extremities: no edema Skin: other - nail discoloration Neurologic/Psychiatric: alert, responsive Laboratory Tests Test 02/20/19 06:30 White Blood Count 8.0 K/UL (4.8-10.8) Red Blood Count 4.21 M/UL (4.70-6.10) L Hemoglobin 13.3 G/DL (14.2-18.0) L Hematocrit 37.4 % (42.0-52.0) L Mean Corpuscular Volume 89 FL (80-99) Mean Corpuscular Hemoglobin 31.6 PG (27.0-31.0) H Mean Corpuscular Hemoglobin Concent 35.6 G/DL (32.0-36.0) Red Cell Distribution Width 13.5 % (11.6-14.8) Platelet Count 453 K/UL (150-450) H Mean Platelet Volume 4.6 FL (6.5-10.1) L Neutrophils (%) (Auto) 66.5 % (45.0-75.0) Lymphocytes (%) (Auto) 20.7 % (20.0-45.0) Monocytes (%) (Auto) 8.2 % (1.0-10.0) Eosinophils (%) (Auto) 3.1 % (0.0-3.0) H Basophils (%) (Auto) 1.5 % (0.0-2.0) Sodium Level 142 MMOL/L (136-145) Potassium Level 4.0 MMOL/L (3.5-5.1) Chloride Level 105 MMOL/L (98-107) Carbon Dioxide Level 27 MMOL/L (21-32) Anion Gap 10 mmol/L (5-15) Blood Urea Nitrogen 13 mg/dL (7-18) Creatinine 0.6 MG/DL (0.55-1.30) Estimat Glomerular Filtration Rate mL/min (>60) Glucose Level 107 MG/DL (74-106) H Calcium Level 9.2 MG/DL (8.5-10.1) Total Bilirubin 0.4 MG/DL (0.2-1.0) Aspartate Amino Transf (AST/SGOT) 40 U/L (15-37) H Alanine Aminotransferase (ALT/SGPT) 61 U/L (12-78) Alkaline Phosphatase 64 U/L (46-116) Total Protein 7.3 G/DL (6.4-8.2) Albumin 2.6 G/DL (3.4-5.0) L Globulin 4.7 g/dL Albumin/Globulin Ratio 0.6 (1.0-2.7) L Current Medications Medications (Trade) Dose Ordered Sig/Manish Route PRN Reason Start Time Stop Time Status Last Admin Dose Admin Acetaminophen (Tylenol) 650 mg Q6H PRN ORAL Mild Pain/Temp > 100.5 02/14/19 18:30 03/10/19 18:29 02/19/19 20:30 Amoxicillin (Amoxil) 1,000 mg BID@0630,1630 ORAL 02/15/19 06:30 02/21/19 23:59 02/20/19 05:37 Clarithromycin (Biaxin) 500 mg EVERY 12 HOURS ORAL 02/14/19 21:00 02/21/19 23:59 02/20/19 09:06 Dextrose (Dextrose 50%) 25 ml Q30M PRN IV Hypoglycemia 02/14/19 08:30 03/10/19 08:29 Dextrose (Dextrose 50%) 50 ml Q30M PRN IV Hypoglycemia 02/14/19 18:30 03/10/19 18:29 Hydralazine HCl (Apresoline) 25 mg Q4H PRN ORAL bp over 160 syst 02/14/19 18:30 03/16/19 18:29 02/17/19 00:04 Insulin Aspart (NovoLOG) AC+HS SUBQ 02/14/19 21:00 03/10/19 11:59 02/19/19 06:09 Metoprolol Tartrate (Lopressor) 25 mg Q12HR ORAL 02/14/19 21:00 03/16/19 20:59 02/20/19 09:06 Pantoprazole (Protonix) 40 mg BID ORAL 02/15/19 09:00 03/17/19 08:59 02/20/19 09:06 Potassium Chloride (K-Dur) 40 meq DAILY ORAL 02/16/19 10:00 03/18/19 09:59 02/20/19 09:07 Thiamine HCl (Vitamin B1) 100 mg DAILY ORAL 02/15/19 09:00 03/17/19 08:59 02/20/19 09:07 Fazal Basilio MD Feb 20, 2019 11:12
--- NOTE | 2019-02-20 12:56 | Cardiac Electrophysiology PN ---
Assessment/Plan Assessment/Plan 1. Sinus tachycardia due to DKA and GI bleed. Resolved No evidence of atrial fibrillation or SVT. EF 60%. 2. S/P Respiratory failure, Extubated 3. Acute GI bleed, status post endoscopy by Dr. Conn that showed duodenal ulcer. Also received 4 units of blood transfusion. No indication for surgery at this time per Dr. Baumann 4. Diabetic ketoacidosis, on insulin 5. Accelerated hypertension. On Lopressor 25 bid and prn Hydralazine DW RN Subjective Subjective No CP or SOB in NAD. RN at bedside. Placement still pending Objective Last 24 Hour Vital Signs Date Time Temp Pulse Resp B/P (MAP) Pulse Ox O2 Delivery O2 Flow Rate FiO2 02/20/19 12:00 97.9 80 18 141/65 (90) 96 02/20/19 09:06 98 106/94 02/20/19 09:00 Room Air 02/20/19 08:00 97.5 98 18 106/94 (98) 97 02/20/19 04:00 97.9 88 18 157/72 (100) 98 02/20/19 00:00 97.5 81 18 152/76 (101) 99 02/19/19 21:00 Room Air 02/19/19 21:00 97.9 02/19/19 20:49 96 Room Air 21 02/19/19 20:49 89 16 96 Room Air 21 02/19/19 20:23 91 159/88 02/19/19 20:00 97.9 91 18 159/88 (111) 98 02/19/19 16:00 97.9 79 20 150/80 (103) 98 Intake and Output 02/19/19 02/20/19 18:59 06:59 Intake Total 540 ml 360 ml Output Total 1200 ml 500 ml Balance -660 ml -140 ml Intake Oral 540 ml 360 ml Output Urine Total 1200 ml 500 ml # Voids 5 Laboratory Tests Test 02/20/19 06:30 White Blood Count 8.0 K/UL (4.8-10.8) Red Blood Count 4.21 M/UL (4.70-6.10) L Hemoglobin 13.3 G/DL (14.2-18.0) L Hematocrit 37.4 % (42.0-52.0) L Mean Corpuscular Volume 89 FL (80-99) Mean Corpuscular Hemoglobin 31.6 PG (27.0-31.0) H Mean Corpuscular Hemoglobin Concent 35.6 G/DL (32.0-36.0) Red Cell Distribution Width 13.5 % (11.6-14.8) Platelet Count 453 K/UL (150-450) H Mean Platelet Volume 4.6 FL (6.5-10.1) L Neutrophils (%) (Auto) 66.5 % (45.0-75.0) Lymphocytes (%) (Auto) 20.7 % (20.0-45.0) Monocytes (%) (Auto) 8.2 % (1.0-10.0) Eosinophils (%) (Auto) 3.1 % (0.0-3.0) H Basophils (%) (Auto) 1.5 % (0.0-2.0) Sodium Level 142 MMOL/L (136-145) Potassium Level 4.0 MMOL/L (3.5-5.1) Chloride Level 105 MMOL/L (98-107) Carbon Dioxide Level 27 MMOL/L (21-32) Anion Gap 10 mmol/L (5-15) Blood Urea Nitrogen 13 mg/dL (7-18) Creatinine 0.6 MG/DL (0.55-1.30) Estimat Glomerular Filtration Rate mL/min (>60) Glucose Level 107 MG/DL (74-106) H Calcium Level 9.2 MG/DL (8.5-10.1) Total Bilirubin 0.4 MG/DL (0.2-1.0) Aspartate Amino Transf (AST/SGOT) 40 U/L (15-37) H Alanine Aminotransferase (ALT/SGPT) 61 U/L (12-78) Alkaline Phosphatase 64 U/L (46-116) Total Protein 7.3 G/DL (6.4-8.2) Albumin 2.6 G/DL (3.4-5.0) L Globulin 4.7 g/dL Albumin/Globulin Ratio 0.6 (1.0-2.7) L Objective HEAD AND NECK: No JVD. LUNGS: Decreased breath sounds. CARDIOVASCULAR: Nl S1 and S2 with no gallop. ABDOMEN: Soft. EXTREMITIES: No pitting edema poor feet hygiene. Matthew Kent MD Feb 20, 2019 12:56
--- NOTE | 2019-02-20 13:46 | Surgery Progress Note ---
Surgery Progress Note Subjective Symptoms: improved, tolerating diet, voiding well, passing flatus, BM, pain decreased Objective Last 24 Hour Vital Signs Date Time Temp Pulse Resp B/P (MAP) Pulse Ox O2 Delivery O2 Flow Rate FiO2 02/20/19 12:00 97.9 80 18 141/65 (90) 96 02/20/19 09:06 98 106/94 02/20/19 09:00 Room Air 02/20/19 08:00 97.5 98 18 106/94 (98) 97 02/20/19 04:00 97.9 88 18 157/72 (100) 98 02/20/19 00:00 97.5 81 18 152/76 (101) 99 02/19/19 21:00 Room Air 02/19/19 21:00 97.9 02/19/19 20:49 96 Room Air 21 02/19/19 20:49 89 16 96 Room Air 21 02/19/19 20:23 91 159/88 02/19/19 20:00 97.9 91 18 159/88 (111) 98 02/19/19 16:00 97.9 79 20 150/80 (103) 98 I&O Intake and Output 02/19/19 02/20/19 19:00 07:00 Intake Total 540 ml 360 ml Output Total 1200 ml 500 ml Balance -660 ml -140 ml Intake Oral 540 ml 360 ml Output Urine Total 1200 ml 500 ml # Voids 5 Cardiovascular: RSR Respiratory: clear Abdomen: soft, distended, non-tender, present bowel sounds Extremities: no edema, no tenderness, no cyanosis Laboratory Tests Test 02/20/19 06:30 White Blood Count 8.0 K/UL (4.8-10.8) Red Blood Count 4.21 M/UL (4.70-6.10) L Hemoglobin 13.3 G/DL (14.2-18.0) L Hematocrit 37.4 % (42.0-52.0) L Mean Corpuscular Volume 89 FL (80-99) Mean Corpuscular Hemoglobin 31.6 PG (27.0-31.0) H Mean Corpuscular Hemoglobin Concent 35.6 G/DL (32.0-36.0) Red Cell Distribution Width 13.5 % (11.6-14.8) Platelet Count 453 K/UL (150-450) H Mean Platelet Volume 4.6 FL (6.5-10.1) L Neutrophils (%) (Auto) 66.5 % (45.0-75.0) Lymphocytes (%) (Auto) 20.7 % (20.0-45.0) Monocytes (%) (Auto) 8.2 % (1.0-10.0) Eosinophils (%) (Auto) 3.1 % (0.0-3.0) H Basophils (%) (Auto) 1.5 % (0.0-2.0) Sodium Level 142 MMOL/L (136-145) Potassium Level 4.0 MMOL/L (3.5-5.1) Chloride Level 105 MMOL/L (98-107) Carbon Dioxide Level 27 MMOL/L (21-32) Anion Gap 10 mmol/L (5-15) Blood Urea Nitrogen 13 mg/dL (7-18) Creatinine 0.6 MG/DL (0.55-1.30) Estimat Glomerular Filtration Rate mL/min (>60) Glucose Level 107 MG/DL (74-106) H Calcium Level 9.2 MG/DL (8.5-10.1) Total Bilirubin 0.4 MG/DL (0.2-1.0) Aspartate Amino Transf (AST/SGOT) 40 U/L (15-37) H Alanine Aminotransferase (ALT/SGPT) 61 U/L (12-78) Alkaline Phosphatase 64 U/L (46-116) Total Protein 7.3 G/DL (6.4-8.2) Albumin 2.6 G/DL (3.4-5.0) L Globulin 4.7 g/dL Albumin/Globulin Ratio 0.6 (1.0-2.7) L Plan Problems: (1) GIB (gastrointestinal bleeding) Assessment & Plan: 69-year-old male with acute gastrointestinal hemorrhage secondary to large duodenal ulcer. Patient had endoscopy with hemostasis just now identified a large ulcer with potential to rebleed. Need to control patient's hypertension and allow for even permissive hypotension if necessary h/h stable overall doing better labs stable now exam stable Will follow and be available in case patient rebleeds at which time he will require an exploration thank you for allowing me to participate in patient's care d/c planning will follow with recommendations Adelso Baumann Feb 20, 2019 13:46
--- NOTE | 2019-02-20 19:33 | General Progress Note ---
Assessment/Plan Problem List: (1) Sepsis ICD Codes: A41.9 - Sepsis, unspecified organism SNOMED: 99401079, 60536383 Qualifiers: Qualified Codes: A41.9 - Sepsis, unspecified organism; R65.20 - Severe sepsis without septic shock; N17.9 - Acute kidney failure, unspecified (2) Sinus tachycardia ICD Codes: R00.0 - Tachycardia, unspecified SNOMED: 13117211 (3) ARF (acute renal failure) ICD Codes: N17.9 - Acute kidney failure, unspecified SNOMED: 62540852 Qualifiers: Qualified Codes: N17.9 - Acute kidney failure, unspecified (4) Lactic acidosis ICD Codes: E87.2 - Acidosis SNOMED: 02788390, 06356778 (5) Esophageal varices ICD Codes: I85.00 - Esophageal varices without bleeding SNOMED: 01128012 Status: progressing, unchanged Assessment/Plan: no need for basal insulin for now continue Novolog sliding scale Subjective Allergies: Coded Allergies: No Known Allergies (Unverified , 02/07/19) All Systems: reviewed and negative except above Subjective events noted glucose values are stable Item Value Date Time Bedside Blood Glucose 101 mg/dl 02/20/19 1630 Bedside Blood Glucose 110 mg/dl 02/20/19 1130 Bedside Blood Glucose 99 mg/dl 02/20/19 0615 Objective Last 24 Hour Vital Signs Date Time Temp Pulse Resp B/P (MAP) Pulse Ox O2 Delivery O2 Flow Rate FiO2 02/20/19 16:00 98.6 59 20 151/85 (107) 94 02/20/19 12:00 97.9 80 18 141/65 (90) 96 02/20/19 09:06 98 106/94 02/20/19 09:00 Room Air 02/20/19 08:00 97.5 98 18 106/94 (98) 97 02/20/19 04:00 97.9 88 18 157/72 (100) 98 02/20/19 00:00 97.5 81 18 152/76 (101) 99 02/19/19 21:00 Room Air 02/19/19 21:00 97.9 02/19/19 20:49 96 Room Air 21 02/19/19 20:49 89 16 96 Room Air 21 02/19/19 20:23 91 159/88 02/19/19 20:00 97.9 91 18 159/88 (111) 98 Intake and Output 02/19/19 02/20/19 19:00 07:00 Intake Total 540 ml 360 ml Output Total 1200 ml 500 ml Balance -660 ml -140 ml Intake Oral 540 ml 360 ml Output Urine Total 1200 ml 500 ml # Voids 5 Laboratory Tests 02/20/19 06:30: White Blood Count 8.0, Red Blood Count 4.21L, Hemoglobin 13.3L, Hematocrit 37.4L , Mean Corpuscular Volume 89, Mean Corpuscular Hemoglobin 31.6H, Mean Corpuscular Hemoglobin Concent 35.6, Red Cell Distribution Width 13.5, Platelet Count 453H, Mean Platelet Volume 4.6L, Neutrophils (%) (Auto) 66.5, Lymphocytes (%) (Auto) 20.7, Monocytes (%) (Auto) 8.2, Eosinophils (%) (Auto) 3.1H, Basophils (%) (Auto) 1.5, Sodium Level 142, Potassium Level 4.0, Chloride Level 105, Carbon Dioxide Level 27, Anion Gap 10, Blood Urea Nitrogen 13, Creatinine 0.6, Estimat Glomerular Filtration Rate , Glucose Level 107H, Calcium Level 9.2 , Total Bilirubin 0.4, Aspartate Amino Transf (AST/SGOT) 40H, Alanine Aminotransferase (ALT/SGPT) 61, Alkaline Phosphatase 64, Total Protein 7.3, Albumin 2.6L, Globulin 4.7, Albumin/Globulin Ratio 0.6L Height (Feet): 5 Height (Inches): 5.00 Weight (Pounds): 140 General Appearance: no apparent distress Neck: normal alignment Cardiovascular: normal rate Respiratory/Chest: lungs clear Abdomen: normal bowel sounds Objective Current Medications Medications (Trade) Dose Ordered Sig/Manish Route PRN Reason Start Time Stop Time Status Last Admin Dose Admin Acetaminophen (Tylenol) 650 mg Q6H PRN ORAL Mild Pain/Temp > 100.5 02/14/19 18:30 03/10/19 18:29 02/19/19 20:30 Amoxicillin (Amoxil) 1,000 mg BID@0630,1630 ORAL 02/15/19 06:30 02/21/19 23:59 02/20/19 17:17 Clarithromycin (Biaxin) 500 mg EVERY 12 HOURS ORAL 02/14/19 21:00 02/21/19 23:59 02/20/19 09:06 Dextrose (Dextrose 50%) 25 ml Q30M PRN IV Hypoglycemia 02/14/19 08:30 03/10/19 08:29 Dextrose (Dextrose 50%) 50 ml Q30M PRN IV Hypoglycemia 02/14/19 18:30 03/10/19 18:29 Hydralazine HCl (Apresoline) 25 mg Q4H PRN ORAL bp over 160 syst 02/14/19 18:30 03/16/19 18:29 02/17/19 00:04 Insulin Aspart (NovoLOG) AC+HS SUBQ 02/14/19 21:00 03/10/19 11:59 02/19/19 06:09 Metoprolol Tartrate (Lopressor) 25 mg Q12HR ORAL 02/14/19 21:00 03/16/19 20:59 02/20/19 09:06 Pantoprazole (Protonix) 40 mg BID ORAL 02/15/19 09:00 03/17/19 08:59 02/20/19 17:17 Potassium Chloride (K-Dur) 40 meq DAILY ORAL 02/16/19 10:00 03/18/19 09:59 02/20/19 09:07 Thiamine HCl (Vitamin B1) 100 mg DAILY ORAL 02/15/19 09:00 03/17/19 08:59 02/20/19 09:07 Jt Wellington MD Feb 20, 2019 19:33
--- NOTE | 2019-02-20 20:00 | NUR ---
NURSE NOTES: Patient received in bed, aaox4, denies pain or discomfort at this time. Patient hasn't had bowel movement in days, asked if patient feels constipated, patient denied. Asked if he would like to have some laxatives, patient declined and stated, he does not really eat; therefore he has not had a bowel movement. Will continue to monitor.
--- NOTE | 2019-02-20 20:07 | Hematology/Onc Progress Note ---
Assessment/Plan Assessment/Plan # Anemia due to underlying gi bleed, sp egd which showed duodenal ulceration, failed hemostasis --> continue ppi --> coags slightly elevated, nsider vit K if persistent bleeding --> transfuse if hgb <7 --> no indication for surgery --> trend hgb 13-->11.1-->11->12-->13.7->13.3 --> if hgb downtrends may need ex lap per surg # Thrombocytosis and Leukocytosis with Sepsis, systemic inflammatory response syndrome --> monitor for improvement --> is on abx, zosyn per id --> per id recs --> wbc 16--.14-->14-->11.7 --> trend plt 465k-->443k # DKA with Uncontrolled DM --> on insulin sliding scale --> endo recs reviewed # Lactic acidosis, --> trend as needed, on ivf, thiamine, folate # Acute renal failure improving. --> sp fluids # Onychomycosis and tinea pedis, --> podiatry consulted # Elevated transaminase level due to etoh use --> trend as needed # Acute respiratory failure --> now extubated, breathing better --> on 2l NC The timing of this note does not necessarily reflect the time of the patient was seen. GREATLY APPRECIATE CONSULTATION. Subjective Constitutional: Denies: no symptoms, chills, fever, malaise, weakness, other HEENT: Denies: no symptoms, eye pain, blurred vision, tearing, double vision, ear pain, ear discharge, nose pain, nose congestion, throat pain, throat swelling, mouth pain, mouth swelling, other Cardiovascular: Denies: no symptoms, chest pain, edema, irregular heart rate, lightheadedness, palpitations, syncope, other Respiratory: Denies: no symptoms, cough, shortness of breath, SOB with excertion, SOB at rest, sputum, wheezing, other Gastrointestinal/Abdominal: Denies: no symptoms, abdomen distended, abdominal pain, black stools, tarry stools, blood in stool, constipated, diarrhea, difficulty swallowing, nausea, poor appetite, poor fluid intake, rectal bleeding , vomiting, other Genitourinary: Denies: no symptoms, burning, discharge, frequency, flank pain, hematuria, incontinence, pain, urgency, other Neurologic/Psychiatric: Denies: no symptoms, anxiety, depressed, emotional problems, headache, numbness, paresthesia, pre-existing deficit, seizure, tingling, tremors, weakness, other Endocrine: Denies: no symptoms, excessive sweating, flushing, intolerance to cold, intolerance to heat, increased hunger, increased thirst, increased urine, unexplained weight gain, unexplained weight loss, other Allergies: Coded Allergies: No Known Allergies (Unverified , 02/07/19) Subjective 02/09: remains intubated, on vent, able to respond, in bahamian, to commands weaning today, h/h reviewed 02/10: icu, extubated, labs reviewed 02/12: on 2l nc, h/h reviewed, no bleeding in sdu 02/13: on nc, no events, no blding, a+o x4 02/15: discharged, passing gas, no f/c, no major changes 02/16: no fever or chills, on abx, resting, no acute events 02/17: no f/c, vs stable, no distress, denies pain, on abx 02/18: no major changes, a+o x4, no bleeding or chills 02/20: labs reviewed, no bleeding, no f/c, no bleeding Objective Objective Current Medications Medications (Trade) Dose Ordered Sig/Manish Route PRN Reason Start Time Stop Time Status Last Admin Dose Admin Acetaminophen (Tylenol) 650 mg Q6H PRN ORAL Mild Pain/Temp > 100.5 02/14/19 18:30 03/10/19 18:29 02/19/19 20:30 Amoxicillin (Amoxil) 1,000 mg BID@0630,1630 ORAL 02/15/19 06:30 02/21/19 23:59 02/20/19 17:17 Clarithromycin (Biaxin) 500 mg EVERY 12 HOURS ORAL 02/14/19 21:00 02/21/19 23:59 02/20/19 09:06 Dextrose (Dextrose 50%) 25 ml Q30M PRN IV Hypoglycemia 02/14/19 08:30 03/10/19 08:29 Dextrose (Dextrose 50%) 50 ml Q30M PRN IV Hypoglycemia 02/14/19 18:30 03/10/19 18:29 Hydralazine HCl (Apresoline) 25 mg Q4H PRN ORAL bp over 160 syst 02/14/19 18:30 03/16/19 18:29 02/17/19 00:04 Insulin Aspart (NovoLOG) AC+HS SUBQ 02/14/19 21:00 03/10/19 11:59 02/19/19 06:09 Metoprolol Tartrate (Lopressor) 25 mg Q12HR ORAL 02/14/19 21:00 03/16/19 20:59 02/20/19 09:06 Pantoprazole (Protonix) 40 mg BID ORAL 02/15/19 09:00 03/17/19 08:59 02/20/19 17:17 Potassium Chloride (K-Dur) 40 meq DAILY ORAL 02/16/19 10:00 03/18/19 09:59 02/20/19 09:07 Thiamine HCl (Vitamin B1) 100 mg DAILY ORAL 02/15/19 09:00 03/17/19 08:59 02/20/19 09:07 Last 24 Hour Vital Signs Date Time Temp Pulse Resp B/P (MAP) Pulse Ox O2 Delivery O2 Flow Rate FiO2 02/20/19 16:00 98.6 59 20 151/85 (107) 94 02/20/19 12:00 97.9 80 18 141/65 (90) 96 02/20/19 09:06 98 106/94 02/20/19 09:00 Room Air 02/20/19 08:00 97.5 98 18 106/94 (98) 97 02/20/19 04:00 97.9 88 18 157/72 (100) 98 02/20/19 00:00 97.5 81 18 152/76 (101) 99 02/19/19 21:00 Room Air 02/19/19 21:00 97.9 02/19/19 20:49 96 Room Air 21 02/19/19 20:49 89 16 96 Room Air 21 02/19/19 20:23 91 159/88 02/19/19 20:00 97.9 91 18 159/88 (111) 98 02/19/19 16:00 97.9 79 20 150/80 (103) 98 02/19/19 12:00 97.6 82 18 153/75 (101) 99 02/19/19 09:21 96 141/79 02/19/19 09:00 Room Air 02/19/19 08:00 97.9 96 18 141/79 (99) 96 02/19/19 04:00 97.7 93 20 166/81 (109) 100 02/19/19 00:00 97.7 85 18 148/74 (98) 96 02/18/19 21:11 95 160/80 02/18/19 21:00 Room Air 02/18/19 20:05 96 Room Air 21 02/18/19 20:04 97 20 96 Room Air 21 Intake and Output 02/19/19 02/20/19 19:00 07:00 Intake Total 540 ml 360 ml Output Total 1200 ml 500 ml Balance -660 ml -140 ml Intake Oral 540 ml 360 ml Output Urine Total 1200 ml 500 ml # Voids 5 Labs Test 02/20/19 06:30 White Blood Count 8.0 K/UL (4.8-10.8) Red Blood Count 4.21 M/UL (4.70-6.10) Hemoglobin 13.3 G/DL (14.2-18.0) Hematocrit 37.4 % (42.0-52.0) Mean Corpuscular Volume 89 FL (80-99) Mean Corpuscular Hemoglobin 31.6 PG (27.0-31.0) Mean Corpuscular Hemoglobin Concent 35.6 G/DL (32.0-36.0) Red Cell Distribution Width 13.5 % (11.6-14.8) Platelet Count 453 K/UL (150-450) Mean Platelet Volume 4.6 FL (6.5-10.1) Neutrophils (%) (Auto) 66.5 % (45.0-75.0) Lymphocytes (%) (Auto) 20.7 % (20.0-45.0) Monocytes (%) (Auto) 8.2 % (1.0-10.0) Eosinophils (%) (Auto) 3.1 % (0.0-3.0) Basophils (%) (Auto) 1.5 % (0.0-2.0) Sodium Level 142 MMOL/L (136-145) Potassium Level 4.0 MMOL/L (3.5-5.1) Chloride Level 105 MMOL/L (98-107) Carbon Dioxide Level 27 MMOL/L (21-32) Anion Gap 10 mmol/L (5-15) Blood Urea Nitrogen 13 mg/dL (7-18) Creatinine 0.6 MG/DL (0.55-1.30) Estimat Glomerular Filtration Rate mL/min (>60) Glucose Level 107 MG/DL (74-106) Calcium Level 9.2 MG/DL (8.5-10.1) Total Bilirubin 0.4 MG/DL (0.2-1.0) Aspartate Amino Transf (AST/SGOT) 40 U/L (15-37) Alanine Aminotransferase (ALT/SGPT) 61 U/L (12-78) Alkaline Phosphatase 64 U/L (46-116) Total Protein 7.3 G/DL (6.4-8.2) Albumin 2.6 G/DL (3.4-5.0) Globulin 4.7 g/dL Albumin/Globulin Ratio 0.6 (1.0-2.7) Height (Feet): 5 Height (Inches): 5.00 Weight (Pounds): 140 Neck: normal alignment Objective General Appearance: no acute distress HEENT: mucous membranes moist Respiratory/Chest: lungs clear, 2l nc Cardiovascular: normal rate Abdomen: soft, non tender Extremities: no edema Neurologic/Psychiatric: alert, responsive Hal Smith MD Feb 20, 2019 20:07
--- NOTE | 2019-02-20 20:09 | NUR ---
HAND-OFF: Report given tO RAJI PUTNAM.
--- NOTE | 2019-02-20 21:41 | General Progress Note ---
Assessment/Plan Problem List: (1) ARF (acute renal failure) ICD Codes: N17.9 - Acute kidney failure, unspecified SNOMED: 83855081 Qualifiers: Qualified Codes: N17.9 - Acute kidney failure, unspecified (2) Sepsis ICD Codes: A41.9 - Sepsis, unspecified organism SNOMED: 66616284, 47134900 Qualifiers: Qualified Codes: A41.9 - Sepsis, unspecified organism; R65.20 - Severe sepsis without septic shock; N17.9 - Acute kidney failure, unspecified (3) Lactic acidosis ICD Codes: E87.2 - Acidosis SNOMED: 25988945, 79087018 (4) Anemia ICD Codes: D64.9 - Anemia, unspecified SNOMED: 559757006 (5) DKA (diabetic ketoacidoses) ICD Codes: E11.10 - Type 2 diabetes mellitus with ketoacidosis without coma SNOMED: 896828150, 96061919 Qualifiers: Qualified Codes: E13.10 - Other specified diabetes mellitus with ketoacidosis without coma (6) GIB (gastrointestinal bleeding) ICD Codes: K92.2 - Gastrointestinal hemorrhage, unspecified SNOMED: 79123519 (7) Acute respiratory failure ICD Codes: J96.00 - Acute respiratory failure, unspecified whether with hypoxia or hypercapnia SNOMED: 75155354 (8) Dehydration ICD Codes: E86.0 - Dehydration SNOMED: 01035468, 25575705 Status: progressing, unchanged Assessment/Plan: no acute events afebrile \check h/h diet advanced per gi so wrote to dc to safe place Subjective ROS Limited/Unobtainable: Yes Allergies: Coded Allergies: No Known Allergies (Unverified , 02/07/19) Objective Last 24 Hour Vital Signs Date Time Temp Pulse Resp B/P (MAP) Pulse Ox O2 Delivery O2 Flow Rate FiO2 02/20/19 21:00 Room Air 02/20/19 20:24 101 162/87 02/20/19 20:00 98.4 103 16 162/87 (112) 100 02/20/19 16:00 98.6 59 20 151/85 (107) 94 02/20/19 12:00 97.9 80 18 141/65 (90) 96 02/20/19 09:06 98 106/94 02/20/19 09:00 Room Air 02/20/19 08:00 97.5 98 18 106/94 (98) 97 02/20/19 04:00 97.9 88 18 157/72 (100) 98 02/20/19 00:00 97.5 81 18 152/76 (101) 99 Intake and Output 02/19/19 02/20/19 18:59 06:59 Intake Total 540 ml 360 ml Output Total 1200 ml 500 ml Balance -660 ml -140 ml Intake Oral 540 ml 360 ml Output Urine Total 1200 ml 500 ml # Voids 5 Laboratory Tests 02/20/19 06:30: White Blood Count 8.0, Red Blood Count 4.21L, Hemoglobin 13.3L, Hematocrit 37.4L , Mean Corpuscular Volume 89, Mean Corpuscular Hemoglobin 31.6H, Mean Corpuscular Hemoglobin Concent 35.6, Red Cell Distribution Width 13.5, Platelet Count 453H, Mean Platelet Volume 4.6L, Neutrophils (%) (Auto) 66.5, Lymphocytes (%) (Auto) 20.7, Monocytes (%) (Auto) 8.2, Eosinophils (%) (Auto) 3.1H, Basophils (%) (Auto) 1.5, Sodium Level 142, Potassium Level 4.0, Chloride Level 105, Carbon Dioxide Level 27, Anion Gap 10, Blood Urea Nitrogen 13, Creatinine 0.6, Estimat Glomerular Filtration Rate , Glucose Level 107H, Calcium Level 9.2 , Total Bilirubin 0.4, Aspartate Amino Transf (AST/SGOT) 40H, Alanine Aminotransferase (ALT/SGPT) 61, Alkaline Phosphatase 64, Total Protein 7.3, Albumin 2.6L, Globulin 4.7, Albumin/Globulin Ratio 0.6L Height (Feet): 5 Height (Inches): 5.00 Weight (Pounds): 140 Cardiovascular: normal rate Respiratory/Chest: lungs clear Abdomen: soft Harvey Gee MD Feb 20, 2019 21:41
[2019-02-20] MEDS: HydrALAZINE 25mg tab ORAL PRN (23:53)
[2019-02-21 04:30] VITALS: BP 148/81
[2019-02-21] MEDS: NovoLOG Insulin Flexpen SUBQ SCH ×4 (05:58→20:27)
--- NOTE | 2019-02-21 06:33 | General Progress Note ---
Assessment/Plan Problem List: (1) Sepsis ICD Codes: A41.9 - Sepsis, unspecified organism SNOMED: 68059398, 20020178 Qualifiers: Qualified Codes: A41.9 - Sepsis, unspecified organism; R65.20 - Severe sepsis without septic shock; N17.9 - Acute kidney failure, unspecified (2) Sinus tachycardia ICD Codes: R00.0 - Tachycardia, unspecified SNOMED: 02157358 (3) ARF (acute renal failure) ICD Codes: N17.9 - Acute kidney failure, unspecified SNOMED: 68865094 Qualifiers: Qualified Codes: N17.9 - Acute kidney failure, unspecified (4) Lactic acidosis ICD Codes: E87.2 - Acidosis SNOMED: 98490441, 99700332 (5) Esophageal varices ICD Codes: I85.00 - Esophageal varices without bleeding SNOMED: 06390631 Status: progressing, unchanged Assessment/Plan: no need for basal insulin for now continue Novolog sliding scale Subjective Allergies: Coded Allergies: No Known Allergies (Unverified , 02/07/19) All Systems: reviewed and negative except above Subjective events noted glucose values are stable Item Value Date Time Bedside Blood Glucose 86 mg/dl 02/21/19 0630 Bedside Blood Glucose 119 mg/dl 02/20/19 2031 Bedside Blood Glucose 101 mg/dl 02/20/19 1630 Bedside Blood Glucose 110 mg/dl 02/20/19 1130 Bedside Blood Glucose 99 mg/dl 02/20/19 0615 Objective Last 24 Hour Vital Signs Date Time Temp Pulse Resp B/P (MAP) Pulse Ox O2 Delivery O2 Flow Rate FiO2 02/21/19 04:30 98.0 100 16 148/81 (103) 96 02/20/19 23:53 165/82 02/20/19 23:46 97.3 92 16 165/82 (109) 100 02/20/19 21:00 Room Air 02/20/19 20:24 101 162/87 02/20/19 20:07 91 18 94 Room Air 21 02/20/19 20:07 94 Room Air 21 02/20/19 20:00 98.4 103 16 162/87 (112) 100 02/20/19 16:00 98.6 59 20 151/85 (107) 94 02/20/19 12:00 97.9 80 18 141/65 (90) 96 02/20/19 09:06 98 106/94 02/20/19 09:00 Room Air 02/20/19 08:00 97.5 98 18 106/94 (98) 97 Intake and Output 02/20/19 02/21/19 19:00 07:00 Intake Total 400 ml Output Total 650 ml Balance -250 ml Intake Oral 400 ml Output Urine Total 650 ml Height (Feet): 5 Height (Inches): 5.00 Weight (Pounds): 140 General Appearance: no apparent distress Neck: normal alignment Cardiovascular: normal rate Respiratory/Chest: lungs clear Abdomen: normal bowel sounds Objective Current Medications Medications (Trade) Dose Ordered Sig/Manish Route PRN Reason Start Time Stop Time Status Last Admin Dose Admin Acetaminophen (Tylenol) 650 mg Q6H PRN ORAL Mild Pain/Temp > 100.5 02/14/19 18:30 03/10/19 18:29 02/19/19 20:30 Amoxicillin (Amoxil) 1,000 mg BID@0630,1630 ORAL 02/15/19 06:30 02/21/19 23:59 02/21/19 06:00 Clarithromycin (Biaxin) 500 mg EVERY 12 HOURS ORAL 02/14/19 21:00 02/21/19 23:59 02/20/19 20:24 Dextrose (Dextrose 50%) 25 ml Q30M PRN IV Hypoglycemia 02/14/19 08:30 03/10/19 08:29 Dextrose (Dextrose 50%) 50 ml Q30M PRN IV Hypoglycemia 02/14/19 18:30 03/10/19 18:29 Hydralazine HCl (Apresoline) 25 mg Q4H PRN ORAL bp over 160 syst 02/14/19 18:30 03/16/19 18:29 02/20/19 23:53 Insulin Aspart (NovoLOG) AC+HS SUBQ 02/14/19 21:00 03/10/19 11:59 02/20/19 20:31 Metoprolol Tartrate (Lopressor) 25 mg Q12HR ORAL 02/14/19 21:00 03/16/19 20:59 02/20/19 20:24 Pantoprazole (Protonix) 40 mg BID ORAL 02/15/19 09:00 03/17/19 08:59 02/20/19 17:17 Potassium Chloride (K-Dur) 40 meq DAILY ORAL 02/16/19 10:00 03/18/19 09:59 02/20/19 09:07 Thiamine HCl (Vitamin B1) 100 mg DAILY ORAL 02/15/19 09:00 03/17/19 08:59 02/20/19 09:07 Jt Wellington MD Feb 21, 2019 06:33
--- NOTE | 2019-02-21 07:17 | NUR ---
HAND-OFF: Report given to Shady ALEGRIA.
--- NOTE | 2019-02-21 07:23 | NUR ---
NURSE NOTES: HANDOFF RECEIVED FROM RAJI PUTNAM. PATIENT RECEIVED SITTING IN BED FINISHING BREAKFAST, NO VISIBLE SIGNS OF DISTRESS. PATIENT IS ABLE TO MAKE NEEDS KNOWN. IV SITE IS CLEAN DRY AND INTACT. BED IS IN LOW AND LOCKED POSITION WITH CALL LIGHT IN REACH. WILL CONTINUE TO MONITOR
[2019-02-21 08:00] VITALS: BP 131/76
[2019-02-21] MEDS: Metoprolol 25mg tab ORAL SCH ×2 (10:08→20:25)
[2019-02-21] MEDS: Thiamine 100mg tab ORAL SCH (10:09)
[2019-02-21] MEDS: Clarithromycin 500mg tab ORAL SCH ×2 (10:09→20:25)
--- NOTE | 2019-02-21 11:35 | Cardiac Electrophysiology PN ---
Assessment/Plan Assessment/Plan 1. Sinus tachycardia due to DKA and GI bleed. Resolved No evidence of atrial fibrillation or SVT. EF 60%. 2. S/P Respiratory failure, Extubated 3. Acute GI bleed, status post endoscopy by Dr. Conn that showed duodenal ulcer. Also received 4 units of blood transfusion. No indication for surgery at this time per Dr. Baumann 4. Diabetic ketoacidosis, on insulin 5. Accelerated hypertension. Better on Lopressor 25 bid and prn Hydralazine DW RN Subjective Subjective No CP or SOB in NAD. Placement pending Objective Last 24 Hour Vital Signs Date Time Temp Pulse Resp B/P (MAP) Pulse Ox O2 Delivery O2 Flow Rate FiO2 02/21/19 10:08 88 131/76 02/21/19 09:58 95 Room Air 21 02/21/19 09:58 88 16 95 Room Air 21 02/21/19 09:00 Room Air 02/21/19 08:00 97.9 108 17 131/76 (94) 98 02/21/19 04:30 98.0 100 16 148/81 (103) 96 02/20/19 23:53 165/82 02/20/19 23:46 97.3 92 16 165/82 (109) 100 02/20/19 21:00 Room Air 02/20/19 20:24 101 162/87 02/20/19 20:07 91 18 94 Room Air 21 02/20/19 20:07 94 Room Air 21 02/20/19 20:00 98.4 103 16 162/87 (112) 100 02/20/19 16:00 98.6 59 20 151/85 (107) 94 02/20/19 12:00 97.9 80 18 141/65 (90) 96 Intake and Output 02/20/19 02/21/19 19:00 07:00 Intake Total 400 ml Output Total 650 ml Balance -250 ml Intake Oral 400 ml Output Urine Total 650 ml Objective HEAD AND NECK: No JVD. LUNGS: Decreased breath sounds. CARDIOVASCULAR: Nl S1 and S2 with no gallop. ABDOMEN: Soft. EXTREMITIES: No pitting edema Matthew Kent MD Feb 21, 2019 11:35
[2019-02-21 12:00] VITALS: BP 147/77
--- NOTE | 2019-02-21 12:14 | Infectious Diseases Prog Note ---
Assessment/Plan Assessment/Plan IMPRESSION: Sepsis, systemic inflammatory response syndrome, Leukocytosis GI bleeding Duodenal ulcer. Uncontrolled DM Lactic acidosis, Acute renal failure resolved Onychomycosis tinea pedis treated anemia, received blood transfusion, Elevated transaminase level. Acute respiratory failure resolved H. pylori infection RECOMMENDATION: Continue Amoxicillin, Biaxin & Protonix Subjective ROS Limited/Unobtainable: Yes Constitutional: Reports: no symptoms Respiratory: Reports: no symptoms Gastrointestinal/Abdominal: Reports: no symptoms Musculoskeletal: Reports: pain, other - in feet Allergies: Coded Allergies: No Known Allergies (Unverified , 02/07/19) Objective Vital Signs Last 24 Hour Vital Signs Date Time Temp Pulse Resp B/P (MAP) Pulse Ox O2 Delivery O2 Flow Rate FiO2 02/21/19 10:08 88 131/76 02/21/19 09:58 95 Room Air 21 02/21/19 09:58 88 16 95 Room Air 21 02/21/19 09:00 Room Air 02/21/19 08:00 97.9 108 17 131/76 (94) 98 02/21/19 04:30 98.0 100 16 148/81 (103) 96 02/20/19 23:53 165/82 02/20/19 23:46 97.3 92 16 165/82 (109) 100 02/20/19 21:00 Room Air 02/20/19 20:24 101 162/87 02/20/19 20:07 91 18 94 Room Air 21 02/20/19 20:07 94 Room Air 21 02/20/19 20:00 98.4 103 16 162/87 (112) 100 02/20/19 16:00 98.6 59 20 151/85 (107) 94 Height (Feet): 5 Height (Inches): 5.00 Weight (Pounds): 140 HEENT: mucous membranes moist Respiratory/Chest: lungs clear Cardiovascular: normal rate Abdomen: soft, non tender Extremities: no edema Neurologic/Psychiatric: alert, responsive Current Medications Medications (Trade) Dose Ordered Sig/Manish Route PRN Reason Start Time Stop Time Status Last Admin Dose Admin Acetaminophen (Tylenol) 650 mg Q6H PRN ORAL Mild Pain/Temp > 100.5 02/14/19 18:30 03/10/19 18:29 02/19/19 20:30 Amoxicillin (Amoxil) 1,000 mg BID@0630,1630 ORAL 02/15/19 06:30 02/21/19 23:59 02/21/19 06:00 Clarithromycin (Biaxin) 500 mg EVERY 12 HOURS ORAL 02/14/19 21:00 02/21/19 23:59 02/21/19 10:09 Dextrose (Dextrose 50%) 25 ml Q30M PRN IV Hypoglycemia 02/14/19 08:30 03/10/19 08:29 Dextrose (Dextrose 50%) 50 ml Q30M PRN IV Hypoglycemia 02/14/19 18:30 03/10/19 18:29 Hydralazine HCl (Apresoline) 25 mg Q4H PRN ORAL bp over 160 syst 02/14/19 18:30 03/16/19 18:29 02/20/19 23:53 Insulin Aspart (NovoLOG) AC+HS SUBQ 02/14/19 21:00 03/10/19 11:59 02/20/19 20:31 Metoprolol Tartrate (Lopressor) 25 mg Q12HR ORAL 02/14/19 21:00 03/16/19 20:59 02/21/19 10:08 Pantoprazole (Protonix) 40 mg BID ORAL 02/15/19 09:00 03/17/19 08:59 02/21/19 10:09 Potassium Chloride (K-Dur) 40 meq DAILY ORAL 02/16/19 10:00 03/18/19 09:59 02/21/19 10:09 Thiamine HCl (Vitamin B1) 100 mg DAILY ORAL 02/15/19 09:00 03/17/19 08:59 02/21/19 10:09 Fazal Basiloi MD Feb 21, 2019 12:14
--- NOTE | 2019-02-21 13:21 | Nephrology Progress Note ---
Assessment/Plan Problem List: (1) ARF (acute renal failure) (2) Dehydration (3) Acute respiratory failure (4) Esophageal varices (5) GIB (gastrointestinal bleeding) Assessment Acute renal failure , Cr lower now intubated Dehydration Hyperglycemia high Lactate level esophageal bleed GI bleed . Plan tolerating diet switch meds to po as possible- in med surg K and Phos and mag supplement as needed per GI- Monitor lytes and renal parameters PT Subjective ROS Limited/Unobtainable: No Constitutional: Reports: malaise Objective Objective Last 24 Hour Vital Signs Date Time Temp Pulse Resp B/P (MAP) Pulse Ox O2 Delivery O2 Flow Rate FiO2 02/21/19 12:00 98.2 96 19 147/77 (100) 100 02/21/19 10:08 88 131/76 02/21/19 09:58 95 Room Air 21 02/21/19 09:58 88 16 95 Room Air 21 02/21/19 09:00 Room Air 02/21/19 08:00 97.9 108 17 131/76 (94) 98 02/21/19 04:30 98.0 100 16 148/81 (103) 96 02/20/19 23:53 165/82 02/20/19 23:46 97.3 92 16 165/82 (109) 100 02/20/19 21:00 Room Air 02/20/19 20:24 101 162/87 02/20/19 20:07 91 18 94 Room Air 21 02/20/19 20:07 94 Room Air 21 02/20/19 20:00 98.4 103 16 162/87 (112) 100 02/20/19 16:00 98.6 59 20 151/85 (107) 94 Intake and Output 02/20/19 02/21/19 19:00 07:00 Intake Total 400 ml Output Total 650 ml Balance -250 ml Intake Oral 400 ml Output Urine Total 650 ml Height (Feet): 5 Height (Inches): 5.00 Weight (Pounds): 140 General Appearance: no apparent distress Objective no change Arturo Cruz MD Feb 21, 2019 13:21
--- NOTE | 2019-02-21 13:30 | NUR ---
NURSE NOTES: PATIENT COMPLAINING OF PAIN, PATIENT SPEAKS MOSTLY CROATIAN, WAS NOT SURE WHERE THE PATIENT WAS HAVING PAIN. I USED THE [employer] PHONE TO SPEAK TO A FLOAT PHLEBOTOMIST TO HELP ASSESS PATIENTS PAIN LEVEL. ADMINISTERED PRESCRIBED MEDS (TYLENOL) NOTED IN THE eMAR.
[2019-02-21 16:00] VITALS: BP 142/77
--- NOTE | 2019-02-21 18:27 | NUR ---
CASE MANAGEMENT: REVIEW 02/21/2019 SI:DKA. GIB. T 97.9 HR 100 RR 16 B/P 142/77 SATS 99% ON RA NO LABS TODAY IS:PROTONIX IV Q12H VASOTEC IV Q6H ZOSYN IV Q8H THIAMINE IV Q24H MED/SURG
--- NOTE | 2019-02-21 18:40 | Surgery Progress Note ---
Surgery Progress Note Subjective Symptoms: improved, tolerating diet, voiding well, passing flatus, BM Objective Last 24 Hour Vital Signs Date Time Temp Pulse Resp B/P (MAP) Pulse Ox O2 Delivery O2 Flow Rate FiO2 02/21/19 16:00 97.9 100 16 142/77 (98) 99 02/21/19 12:00 98.2 96 19 147/77 (100) 100 02/21/19 10:08 88 131/76 02/21/19 09:58 95 Room Air 21 02/21/19 09:58 88 16 95 Room Air 21 02/21/19 09:00 Room Air 02/21/19 08:00 97.9 108 17 131/76 (94) 98 02/21/19 04:30 98.0 100 16 148/81 (103) 96 02/20/19 23:53 165/82 02/20/19 23:46 97.3 92 16 165/82 (109) 100 02/20/19 21:00 Room Air 02/20/19 20:24 101 162/87 02/20/19 20:07 91 18 94 Room Air 21 02/20/19 20:07 94 Room Air 21 02/20/19 20:00 98.4 103 16 162/87 (112) 100 I&O Intake and Output 02/20/19 02/21/19 19:00 07:00 Intake Total 400 ml Output Total 650 ml Balance -250 ml Intake Oral 400 ml Output Urine Total 650 ml Cardiovascular: RSR Respiratory: clear Abdomen: soft, distended, non-tender, present bowel sounds Extremities: no tenderness, no cyanosis Plan Problems: (1) GIB (gastrointestinal bleeding) Assessment & Plan: 69-year-old male with acute gastrointestinal hemorrhage secondary to large duodenal ulcer. Patient had endoscopy with hemostasis just now identified a large ulcer with potential to rebleed. Need to control patient's hypertension and allow for even permissive hypotension if necessary h/h stable overall doing better labs stable now exam stable Will follow and be available in case patient rebleeds at which time he will require an exploration thank you for allowing me to participate in patient's care d/c planning will follow with recommendations Adelso Baumann Feb 21, 2019 18:40
--- NOTE | 2019-02-21 19:16 | NUR ---
HAND-OFF: Report given to RAJI PUTNAM.
[2019-02-21 20:00] VITALS: BP 134/79
--- NOTE | 2019-02-21 20:00 | NUR ---
NURSE NOTES: Patient received in bed, awake, alert. No acute distress. IV intact. Call light, urinal and other personal belongings in reach. Needs attended. Will monitor.
--- NOTE | 2019-02-21 22:34 | General Progress Note ---
Assessment/Plan Problem List: (1) ARF (acute renal failure) ICD Codes: N17.9 - Acute kidney failure, unspecified SNOMED: 73245680 Qualifiers: Qualified Codes: N17.9 - Acute kidney failure, unspecified (2) Sepsis ICD Codes: A41.9 - Sepsis, unspecified organism SNOMED: 77809357, 93922927 Qualifiers: Qualified Codes: A41.9 - Sepsis, unspecified organism; R65.20 - Severe sepsis without septic shock; N17.9 - Acute kidney failure, unspecified (3) Lactic acidosis ICD Codes: E87.2 - Acidosis SNOMED: 91237464, 35435536 (4) Anemia ICD Codes: D64.9 - Anemia, unspecified SNOMED: 822109319 (5) DKA (diabetic ketoacidoses) ICD Codes: E11.10 - Type 2 diabetes mellitus with ketoacidosis without coma SNOMED: 213512756, 37270274 Qualifiers: Qualified Codes: E13.10 - Other specified diabetes mellitus with ketoacidosis without coma (6) GIB (gastrointestinal bleeding) ICD Codes: K92.2 - Gastrointestinal hemorrhage, unspecified SNOMED: 62875973 (7) Acute respiratory failure ICD Codes: J96.00 - Acute respiratory failure, unspecified whether with hypoxia or hypercapnia SNOMED: 02235439 (8) Dehydration ICD Codes: E86.0 - Dehydration SNOMED: 91904342, 04385359 Status: progressing, unchanged Assessment/Plan: weak needs placement no gi bleed reviewed chart and labs le weakness check h/h Subjective ROS Limited/Unobtainable: Yes Allergies: Coded Allergies: No Known Allergies (Unverified , 02/07/19) Objective Last 24 Hour Vital Signs Date Time Temp Pulse Resp B/P (MAP) Pulse Ox O2 Delivery O2 Flow Rate FiO2 02/21/19 21:18 96 18 97 Room Air 21 02/21/19 21:00 Room Air 02/21/19 20:25 96 134/79 02/21/19 20:00 97.2 96 18 134/79 (97) 99 02/21/19 16:00 97.9 100 16 142/77 (98) 99 02/21/19 12:00 98.2 96 19 147/77 (100) 100 02/21/19 10:08 88 131/76 02/21/19 09:58 95 Room Air 21 02/21/19 09:58 88 16 95 Room Air 21 02/21/19 09:00 Room Air 02/21/19 08:00 97.9 108 17 131/76 (94) 98 02/21/19 04:30 98.0 100 16 148/81 (103) 96 02/20/19 23:53 165/82 02/20/19 23:46 97.3 92 16 165/82 (109) 100 Intake and Output 02/20/19 02/21/19 19:00 07:00 Intake Total 400 ml Output Total 650 ml Balance -250 ml Intake Oral 400 ml Output Urine Total 650 ml Height (Feet): 5 Height (Inches): 5.00 Weight (Pounds): 140 Neck: supple Cardiovascular: regular rhythm Respiratory/Chest: lungs clear Abdomen: soft Harvey Gee MD Feb 21, 2019 22:33
[2019-02-22] VITALS: BP 129/72
[2019-02-22 04:00] VITALS: BP 132/80
--- NOTE | 2019-02-22 06:32 | General Progress Note ---
Assessment/Plan Problem List: (1) Sepsis ICD Codes: A41.9 - Sepsis, unspecified organism SNOMED: 95302861, 61706404 Qualifiers: Qualified Codes: A41.9 - Sepsis, unspecified organism; R65.20 - Severe sepsis without septic shock; N17.9 - Acute kidney failure, unspecified (2) Sinus tachycardia ICD Codes: R00.0 - Tachycardia, unspecified SNOMED: 17145208 (3) ARF (acute renal failure) ICD Codes: N17.9 - Acute kidney failure, unspecified SNOMED: 69026281 Qualifiers: Qualified Codes: N17.9 - Acute kidney failure, unspecified (4) Lactic acidosis ICD Codes: E87.2 - Acidosis SNOMED: 40923722, 86442229 (5) Esophageal varices ICD Codes: I85.00 - Esophageal varices without bleeding SNOMED: 85370297 Status: progressing, unchanged Assessment/Plan: glucose values has been normal DC glucose monitoring and insulin coverage I sign off Subjective Allergies: Coded Allergies: No Known Allergies (Unverified , 02/07/19) Subjective events noted glucose values are normal Item Value Date Time Bedside Blood Glucose 98 mg/dl 02/22/19 0612 Bedside Blood Glucose 107 mg/dl 02/21/19 2112 Bedside Blood Glucose 97 mg/dl 02/21/19 1630 Bedside Blood Glucose 95 mg/dl 02/21/19 1130 Bedside Blood Glucose 86 mg/dl 02/21/19 0630 Objective Last 24 Hour Vital Signs Date Time Temp Pulse Resp B/P (MAP) Pulse Ox O2 Delivery O2 Flow Rate FiO2 02/22/19 04:00 97.2 81 17 132/80 (97) 97 02/22/19 00:00 97.2 88 17 129/72 (91) 97 02/21/19 21:18 96 18 97 Room Air 21 02/21/19 21:00 Room Air 02/21/19 20:25 96 134/79 02/21/19 20:00 97.2 96 18 134/79 (97) 99 02/21/19 16:00 97.9 100 16 142/77 (98) 99 02/21/19 12:00 98.2 96 19 147/77 (100) 100 02/21/19 10:08 88 131/76 02/21/19 09:58 95 Room Air 21 02/21/19 09:58 88 16 95 Room Air 21 02/21/19 09:00 Room Air 02/21/19 08:00 97.9 108 17 131/76 (94) 98 Intake and Output 02/21/19 02/22/19 18:59 06:59 Output Total 950 ml Balance -950 ml Output Urine Total 950 ml # Voids 3 Height (Feet): 5 Height (Inches): 5.00 Weight (Pounds): 140 General Appearance: no apparent distress Neck: normal alignment Cardiovascular: normal rate Respiratory/Chest: lungs clear Abdomen: normal bowel sounds Objective Current Medications Medications (Trade) Dose Ordered Sig/Manish Route PRN Reason Start Time Stop Time Status Last Admin Dose Admin Acetaminophen (Tylenol) 650 mg Q6H PRN ORAL Mild Pain/Temp > 100.5 02/14/19 18:30 03/10/19 18:29 02/21/19 13:21 Dextrose (Dextrose 50%) 25 ml Q30M PRN IV Hypoglycemia 02/14/19 08:30 03/10/19 08:29 Dextrose (Dextrose 50%) 50 ml Q30M PRN IV Hypoglycemia 02/14/19 18:30 03/10/19 18:29 Hydralazine HCl (Apresoline) 25 mg Q4H PRN ORAL bp over 160 syst 02/14/19 18:30 03/16/19 18:29 02/20/19 23:53 Insulin Aspart (NovoLOG) AC+HS SUBQ 02/14/19 21:00 03/10/19 11:59 02/20/19 20:31 Metoprolol Tartrate (Lopressor) 25 mg Q12HR ORAL 02/14/19 21:00 03/16/19 20:59 02/21/19 20:25 Pantoprazole (Protonix) 40 mg BID ORAL 02/15/19 09:00 03/17/19 08:59 02/21/19 17:28 Potassium Chloride (K-Dur) 40 meq DAILY ORAL 02/16/19 10:00 03/18/19 09:59 02/21/19 10:09 Thiamine HCl (Vitamin B1) 100 mg DAILY ORAL 02/15/19 09:00 03/17/19 08:59 02/21/19 10:09 Jt Wellington MD Feb 22, 2019 06:32
--- NOTE | 2019-02-22 07:17 | NUR ---
HAND-OFF: Report given to Destinee ALEGRIA.
--- NOTE | 2019-02-22 08:03 | NUR ---
NURSE NOTES: Pt awake, A/O x 3, calm. Denies pain. no SOB noted. no Bleeding. bed in low position, call light within reach. fall precaution maintained. will continue to monitor.
[2019-02-22 08:25] VITALS: BP 134/85
[2019-02-22] MEDS: Thiamine 100mg tab ORAL SCH (08:28)
[2019-02-22] MEDS: Metoprolol 25mg tab ORAL SCH ×2 (08:29→20:39)
--- NOTE | 2019-02-22 08:56 | Nephrology Progress Note ---
Assessment/Plan Problem List: (1) ARF (acute renal failure) (2) Dehydration (3) Acute respiratory failure (4) Esophageal varices (5) GIB (gastrointestinal bleeding) Assessment Acute renal failure , Cr lower now intubated Dehydration Hyperglycemia high Lactate level esophageal bleed GI bleed . Plan tolerating diet switch meds to po as possible- in med surg K and Phos and mag supplement as needed per GI- Monitor lytes and renal parameters PT Subjective ROS Limited/Unobtainable: No Objective Objective Last 24 Hour Vital Signs Date Time Temp Pulse Resp B/P (MAP) Pulse Ox O2 Delivery O2 Flow Rate FiO2 02/22/19 08:29 105 134/85 02/22/19 08:25 98.0 105 20 134/85 (101) 96 02/22/19 04:00 97.2 81 17 132/80 (97) 97 02/22/19 00:00 97.2 88 17 129/72 (91) 97 02/21/19 21:18 96 18 97 Room Air 21 02/21/19 21:00 Room Air 02/21/19 20:25 96 134/79 02/21/19 20:00 97.2 96 18 134/79 (97) 99 02/21/19 16:00 97.9 100 16 142/77 (98) 99 02/21/19 12:00 98.2 96 19 147/77 (100) 100 02/21/19 10:08 88 131/76 02/21/19 09:58 95 Room Air 21 02/21/19 09:58 88 16 95 Room Air 21 02/21/19 09:00 Room Air Intake and Output 02/21/19 02/22/19 18:59 06:59 Intake Total 400 ml Output Total 950 ml Balance -550 ml Intake Oral 400 ml Output Urine Total 950 ml # Voids 3 Height (Feet): 5 Height (Inches): 5.00 Weight (Pounds): 144 General Appearance: no apparent distress Objective no change Arturo Cruz MD Feb 22, 2019 08:56
--- NOTE | 2019-02-22 11:10 | Cardiac Electrophysiology PN ---
Assessment/Plan Assessment/Plan 1. Sinus tachycardia due to DKA and GI bleed. Resolved No evidence of atrial fibrillation or SVT. EF 60%. 2. S/P Respiratory failure, Extubated 3. Acute GI bleed, endoscopy by Dr. Conn showed duodenal ulcer. S/P 4 units of blood transfusion. No indication for surgery at this time per Dr. Baumann 4. Diabetic ketoacidosis, on insulin 5. Accelerated hypertension. On Lopressor 25 bid and prn Hydralazine DW RN Subjective Subjective No CP or SOB in NAD.Awaiting Placement Objective Last 24 Hour Vital Signs Date Time Temp Pulse Resp B/P (MAP) Pulse Ox O2 Delivery O2 Flow Rate FiO2 02/22/19 08:29 105 134/85 02/22/19 08:25 98.0 105 20 134/85 (101) 96 02/22/19 04:00 97.2 81 17 132/80 (97) 97 02/22/19 00:00 97.2 88 17 129/72 (91) 97 02/21/19 21:18 96 18 97 Room Air 21 02/21/19 21:00 Room Air 02/21/19 20:25 96 134/79 02/21/19 20:00 97.2 96 18 134/79 (97) 99 02/21/19 16:00 97.9 100 16 142/77 (98) 99 02/21/19 12:00 98.2 96 19 147/77 (100) 100 Intake and Output 02/21/19 02/22/19 19:00 07:00 Intake Total 400 ml Output Total 350 ml 600 ml Balance -350 ml -200 ml Intake Oral 400 ml Output Urine Total 350 ml 600 ml # Voids 3 Objective HEAD AND NECK: No JVD. LUNGS: Decreased breath sounds. CARDIOVASCULAR: Nl S1 and S2 with no gallop. ABDOMEN: Soft. EXTREMITIES: No pitting edema Matthew Kent MD Feb 22, 2019 11:10
--- NOTE | 2019-02-22 11:19 | General Progress Note ---
Assessment/Plan Problem List: (1) ARF (acute renal failure) ICD Codes: N17.9 - Acute kidney failure, unspecified SNOMED: 38183231 Qualifiers: Qualified Codes: N17.9 - Acute kidney failure, unspecified (2) Sepsis ICD Codes: A41.9 - Sepsis, unspecified organism SNOMED: 27300163, 84571265 Qualifiers: Qualified Codes: A41.9 - Sepsis, unspecified organism; R65.20 - Severe sepsis without septic shock; N17.9 - Acute kidney failure, unspecified (3) Lactic acidosis ICD Codes: E87.2 - Acidosis SNOMED: 00310176, 66517172 (4) Anemia ICD Codes: D64.9 - Anemia, unspecified SNOMED: 618661152 (5) DKA (diabetic ketoacidoses) ICD Codes: E11.10 - Type 2 diabetes mellitus with ketoacidosis without coma SNOMED: 559010743, 81720159 Qualifiers: Qualified Codes: E13.10 - Other specified diabetes mellitus with ketoacidosis without coma (6) GIB (gastrointestinal bleeding) ICD Codes: K92.2 - Gastrointestinal hemorrhage, unspecified SNOMED: 45756646 (7) Acute respiratory failure ICD Codes: J96.00 - Acute respiratory failure, unspecified whether with hypoxia or hypercapnia SNOMED: 52035722 (8) Dehydration ICD Codes: E86.0 - Dehydration SNOMED: 40356020, 27463289 Status: progressing, unchanged Assessment/Plan: weak needs placement no gi bleed check h/h no recent bleed niddm sugar are good Subjective ROS Limited/Unobtainable: Yes Allergies: Coded Allergies: No Known Allergies (Unverified , 02/07/19) Objective Last 24 Hour Vital Signs Date Time Temp Pulse Resp B/P (MAP) Pulse Ox O2 Delivery O2 Flow Rate FiO2 02/22/19 08:29 105 134/85 02/22/19 08:25 98.0 105 20 134/85 (101) 96 02/22/19 04:00 97.2 81 17 132/80 (97) 97 02/22/19 00:00 97.2 88 17 129/72 (91) 97 02/21/19 21:18 96 18 97 Room Air 21 02/21/19 21:00 Room Air 02/21/19 20:25 96 134/79 02/21/19 20:00 97.2 96 18 134/79 (97) 99 02/21/19 16:00 97.9 100 16 142/77 (98) 99 02/21/19 12:00 98.2 96 19 147/77 (100) 100 Intake and Output 02/21/19 02/22/19 19:00 07:00 Intake Total 400 ml Output Total 350 ml 600 ml Balance -350 ml -200 ml Intake Oral 400 ml Output Urine Total 350 ml 600 ml # Voids 3 Height (Feet): 5 Height (Inches): 5.00 Weight (Pounds): 144 Neck: supple Cardiovascular: normal rate Respiratory/Chest: lungs clear Abdomen: soft Harvey Gee MD Feb 22, 2019 11:19
[2019-02-22 12:00] VITALS: BP 156/83
--- NOTE | 2019-02-22 13:05 | NUR ---
CASE MANAGEMENT: REVIEW 02/22/2019 SI:DKA. GIB. T 98 HR 105 RR 20 B/P 134/85 SATS 96% ON RA NO LABS TODAY IS:PROTONIX IV Q12H VASOTEC IV Q6H ZOSYN IV Q8H THIAMINE IV Q24H MED/SURG
--- NOTE | 2019-02-22 14:04 | Infectious Diseases Prog Note ---
Assessment/Plan Assessment/Plan IMPRESSION: Sepsis, systemic inflammatory response syndrome, Leukocytosis GI bleeding Duodenal ulcer. DM, off insulin Lactic acidosis, Acute renal failure resolved Onychomycosis tinea pedis treated anemia, received blood transfusion, Elevated transaminase level. Acute respiratory failure resolved H. pylori infection Diabetic neuropathy RECOMMENDATION: Continue Amoxicillin, Biaxin & Protonix Subjective ROS Limited/Unobtainable: Yes Musculoskeletal: Reports: pain, other - in feet Allergies: Coded Allergies: No Known Allergies (Unverified , 02/07/19) Objective Vital Signs Last 24 Hour Vital Signs Date Time Temp Pulse Resp B/P (MAP) Pulse Ox O2 Delivery O2 Flow Rate FiO2 02/22/19 12:00 98.1 96 18 156/83 (107) 96 02/22/19 09:00 Room Air 02/22/19 08:29 105 134/85 02/22/19 08:25 98.0 105 20 134/85 (101) 96 02/22/19 04:00 97.2 81 17 132/80 (97) 97 02/22/19 00:00 97.2 88 17 129/72 (91) 97 02/21/19 21:18 96 18 97 Room Air 21 02/21/19 21:00 Room Air 02/21/19 20:25 96 134/79 02/21/19 20:00 97.2 96 18 134/79 (97) 99 02/21/19 16:00 97.9 100 16 142/77 (98) 99 Height (Feet): 5 Height (Inches): 5.00 Weight (Pounds): 144 General Appearance: no acute distress HEENT: mucous membranes moist Respiratory/Chest: lungs clear Cardiovascular: normal rate Abdomen: soft, non tender Extremities: no edema Neurologic/Psychiatric: alert, responsive Current Medications Medications (Trade) Dose Ordered Sig/Manish Route PRN Reason Start Time Stop Time Status Last Admin Dose Admin Acetaminophen (Tylenol) 650 mg Q6H PRN ORAL Mild Pain/Temp > 100.5 02/14/19 18:30 03/10/19 18:29 02/21/19 13:21 Dextrose (Dextrose 50%) 25 ml Q30M PRN IV Hypoglycemia 02/14/19 08:30 03/10/19 08:29 Dextrose (Dextrose 50%) 50 ml Q30M PRN IV Hypoglycemia 02/14/19 18:30 03/10/19 18:29 Hydralazine HCl (Apresoline) 25 mg Q4H PRN ORAL bp over 160 syst 02/14/19 18:30 03/16/19 18:29 02/20/19 23:53 Metoprolol Tartrate (Lopressor) 25 mg Q12HR ORAL 02/14/19 21:00 03/16/19 20:59 02/22/19 08:29 Pantoprazole (Protonix) 40 mg BID ORAL 02/15/19 09:00 03/17/19 08:59 02/22/19 08:29 Potassium Chloride (K-Dur) 40 meq DAILY ORAL 02/16/19 10:00 03/18/19 09:59 02/22/19 08:28 Thiamine HCl (Vitamin B1) 100 mg DAILY ORAL 02/15/19 09:00 03/17/19 08:59 02/22/19 08:28 Fazal Basilio MD Feb 22, 2019 14:04
--- NOTE | 2019-02-22 14:20 | Surgery Progress Note ---
Surgery Progress Note Subjective Symptoms: improved, tolerating diet, voiding well, passing flatus, BM Objective Last 24 Hour Vital Signs Date Time Temp Pulse Resp B/P (MAP) Pulse Ox O2 Delivery O2 Flow Rate FiO2 02/22/19 12:00 98.1 96 18 156/83 (107) 96 02/22/19 09:00 Room Air 02/22/19 08:29 105 134/85 02/22/19 08:25 98.0 105 20 134/85 (101) 96 02/22/19 04:00 97.2 81 17 132/80 (97) 97 02/22/19 00:00 97.2 88 17 129/72 (91) 97 02/21/19 21:18 96 18 97 Room Air 21 02/21/19 21:00 Room Air 02/21/19 20:25 96 134/79 02/21/19 20:00 97.2 96 18 134/79 (97) 99 02/21/19 16:00 97.9 100 16 142/77 (98) 99 I&O Intake and Output 02/21/19 02/22/19 19:00 07:00 Intake Total 400 ml Output Total 350 ml 600 ml Balance -350 ml -200 ml Intake Oral 400 ml Output Urine Total 350 ml 600 ml # Voids 3 Cardiovascular: RSR Respiratory: clear Abdomen: soft, flat, non-tender, present bowel sounds Extremities: no edema, no tenderness, no cyanosis Plan Problems: (1) GIB (gastrointestinal bleeding) Assessment & Plan: 69-year-old male with acute gastrointestinal hemorrhage secondary to large duodenal ulcer. Patient had endoscopy with hemostasis just now identified a large ulcer with potential to rebleed. Need to control patient's hypertension and allow for even permissive hypotension if necessary h/h stable overall doing better labs stable now exam stable Will follow and be available in case patient rebleeds at which time he will require an exploration thank you for allowing me to participate in patient's care d/c planning will follow with recommendations Adelso Baumann Feb 22, 2019 14:20
[2019-02-22 16:00] VITALS: BP 142/83
--- NOTE | 2019-02-22 18:55 | NUR ---
HAND-OFF: Report given to Joaquim ALEGRIA.
--- NOTE | 2019-02-22 18:57 | Hematology/Onc Progress Note ---
Assessment/Plan Assessment/Plan # Anemia due to underlying gi bleed, sp egd which showed duodenal ulceration, failed hemostasis --> continue ppi --> coags slightly elevated, nsider vit K if persistent bleeding --> transfuse if hgb <7 --> no indication for surgery --> trend hgb 13-->11.1-->11->12-->13.7->13.3 --> if hgb downtrends may need ex lap per surg # Thrombocytosis and Leukocytosis with Sepsis, systemic inflammatory response syndrome --> monitor for improvement --> is on abx, zosyn per id --> per id recs --> wbc 16--.14-->14-->11.7 --> trend plt 465k-->443k # DKA with Uncontrolled DM --> on insulin sliding scale --> endo recs reviewed # Lactic acidosis, --> trend as needed, on ivf, thiamine, folate # Acute renal failure improving. --> sp fluids # Onychomycosis and tinea pedis, --> podiatry consulted # Elevated transaminase level due to etoh use --> trend as needed # Acute respiratory failure --> now extubated, breathing better --> on 2l NC The timing of this note does not necessarily reflect the time of the patient was seen. GREATLY APPRECIATE CONSULTATION. Subjective Allergies: Coded Allergies: No Known Allergies (Unverified , 02/07/19) Subjective 02/09: remains intubated, on vent, able to respond, in hungarian, to commands weaning today, h/h reviewed 02/10: icu, extubated, labs reviewed 02/12: on 2l nc, h/h reviewed, no bleeding in sdu 02/13: on nc, no events, no blding, a+o x4 02/15: discharged, passing gas, no f/c, no major changes 02/16: no fever or chills, on abx, resting, no acute events 02/17: no f/c, vs stable, no distress, denies pain, on abx 02/18: no major changes, a+o x4, no bleeding or chills 02/20: labs reviewed, no bleeding, no f/c, no bleeding 02/22: no f/c, no sob, denies pain, off abx Objective Objective Current Medications Medications (Trade) Dose Ordered Sig/Manish Route PRN Reason Start Time Stop Time Status Last Admin Dose Admin Acetaminophen (Tylenol) 650 mg Q6H PRN ORAL Mild Pain/Temp > 100.5 02/14/19 18:30 03/10/19 18:29 02/21/19 13:21 Dextrose (Dextrose 50%) 25 ml Q30M PRN IV Hypoglycemia 02/14/19 08:30 03/10/19 08:29 Dextrose (Dextrose 50%) 50 ml Q30M PRN IV Hypoglycemia 02/14/19 18:30 03/10/19 18:29 Gabapentin (Neurontin) 300 mg BID ORAL 02/22/19 18:00 03/24/19 17:59 02/22/19 17:29 Hydralazine HCl (Apresoline) 25 mg Q4H PRN ORAL bp over 160 syst 02/14/19 18:30 03/16/19 18:29 02/20/19 23:53 Metoprolol Tartrate (Lopressor) 25 mg Q12HR ORAL 02/14/19 21:00 03/16/19 20:59 02/22/19 08:29 Pantoprazole (Protonix) 40 mg BID ORAL 02/15/19 09:00 03/17/19 08:59 02/22/19 17:29 Potassium Chloride (K-Dur) 40 meq DAILY ORAL 02/16/19 10:00 03/18/19 09:59 02/22/19 08:28 Thiamine HCl (Vitamin B1) 100 mg DAILY ORAL 02/15/19 09:00 03/17/19 08:59 02/22/19 08:28 Last 24 Hour Vital Signs Date Time Temp Pulse Resp B/P (MAP) Pulse Ox O2 Delivery O2 Flow Rate FiO2 02/22/19 16:00 98.2 89 18 142/83 (102) 96 02/22/19 12:00 98.1 96 18 156/83 (107) 96 02/22/19 09:00 Room Air 02/22/19 08:29 105 134/85 02/22/19 08:25 98.0 105 20 134/85 (101) 96 02/22/19 04:00 97.2 81 17 132/80 (97) 97 02/22/19 00:00 97.2 88 17 129/72 (91) 97 02/21/19 21:18 96 18 97 Room Air 21 02/21/19 21:00 Room Air 02/21/19 20:25 96 134/79 02/21/19 20:00 97.2 96 18 134/79 (97) 99 02/21/19 16:00 97.9 100 16 142/77 (98) 99 02/21/19 12:00 98.2 96 19 147/77 (100) 100 02/21/19 10:08 88 131/76 02/21/19 09:58 95 Room Air 21 02/21/19 09:58 88 16 95 Room Air 21 02/21/19 09:00 Room Air 02/21/19 08:00 97.9 108 17 131/76 (94) 98 02/21/19 04:30 98.0 100 16 148/81 (103) 96 02/20/19 23:53 165/82 02/20/19 23:46 97.3 92 16 165/82 (109) 100 02/20/19 21:00 Room Air 02/20/19 20:24 101 162/87 02/20/19 20:07 91 18 94 Room Air 21 02/20/19 20:07 94 Room Air 21 02/20/19 20:00 98.4 103 16 162/87 (112) 100 Intake and Output 02/21/19 02/22/19 19:00 07:00 Intake Total 400 ml Output Total 350 ml 600 ml Balance -350 ml -200 ml Intake Oral 400 ml Output Urine Total 350 ml 600 ml # Voids 3 Labs Test 02/20/19 06:30 White Blood Count 8.0 K/UL (4.8-10.8) Red Blood Count 4.21 M/UL (4.70-6.10) Hemoglobin 13.3 G/DL (14.2-18.0) Hematocrit 37.4 % (42.0-52.0) Mean Corpuscular Volume 89 FL (80-99) Mean Corpuscular Hemoglobin 31.6 PG (27.0-31.0) Mean Corpuscular Hemoglobin Concent 35.6 G/DL (32.0-36.0) Red Cell Distribution Width 13.5 % (11.6-14.8) Platelet Count 453 K/UL (150-450) Mean Platelet Volume 4.6 FL (6.5-10.1) Neutrophils (%) (Auto) 66.5 % (45.0-75.0) Lymphocytes (%) (Auto) 20.7 % (20.0-45.0) Monocytes (%) (Auto) 8.2 % (1.0-10.0) Eosinophils (%) (Auto) 3.1 % (0.0-3.0) Basophils (%) (Auto) 1.5 % (0.0-2.0) Sodium Level 142 MMOL/L (136-145) Potassium Level 4.0 MMOL/L (3.5-5.1) Chloride Level 105 MMOL/L (98-107) Carbon Dioxide Level 27 MMOL/L (21-32) Anion Gap 10 mmol/L (5-15) Blood Urea Nitrogen 13 mg/dL (7-18) Creatinine 0.6 MG/DL (0.55-1.30) Estimat Glomerular Filtration Rate mL/min (>60) Glucose Level 107 MG/DL (74-106) Calcium Level 9.2 MG/DL (8.5-10.1) Total Bilirubin 0.4 MG/DL (0.2-1.0) Aspartate Amino Transf (AST/SGOT) 40 U/L (15-37) Alanine Aminotransferase (ALT/SGPT) 61 U/L (12-78) Alkaline Phosphatase 64 U/L (46-116) Total Protein 7.3 G/DL (6.4-8.2) Albumin 2.6 G/DL (3.4-5.0) Globulin 4.7 g/dL Albumin/Globulin Ratio 0.6 (1.0-2.7) Height (Feet): 5 Height (Inches): 5.00 Weight (Pounds): 144 Objective General Appearance: no acute distress HEENT: mucous membranes moist Respiratory/Chest: lungs clear, 2l nc Cardiovascular: normal rate Abdomen: soft, non tender Extremities: no edema Neurologic/Psychiatric: alert, responsive Hal Smith MD Feb 22, 2019 18:57
--- NOTE | 2019-02-22 19:42 | NUR ---
NURSE NOTES: Received patient awake,alert,verbal,resting in bed comfortably without complaints.
[2019-02-22 19:47] VITALS: BP 142/83
[2019-02-23] VITALS: BP 144/82
[2019-02-23 03:58] VITALS: BP 155/81
--- NOTE | 2019-02-23 07:00 | NUR ---
HAND-OFF: Report given to Mima Robison RN.
--- NOTE | 2019-02-23 07:08 | NUR ---
NURSE NOTES: received report from RAJI ingram. patient in bed, alert. oriented. verbally responsive. no respiratory distress noted on room air. no pain at this time. no n/v noted. IV on RH22g saline lock. the bed in the lowest position and locked. call light within reach. will continue to provide plan of care.
[2019-02-23 08:00] VITALS: BP 138/76
[2019-02-23] MEDS: Thiamine 100mg tab ORAL SCH (08:27)
[2019-02-23] MEDS: Metoprolol 25mg tab ORAL SCH ×2 (08:27→20:59)
--- NOTE | 2019-02-23 09:26 | Hematology/Onc Progress Note ---
Assessment/Plan Assessment/Plan # Anemia due to underlying gi bleed, sp egd which showed duodenal ulceration, failed hemostasis --> continue ppi --> coags slightly elevated, nsider vit K if persistent bleeding --> transfuse if hgb <7 --> no indication for surgery --> trend hgb 13-->11.1-->11->12-->13.7->13.3 --> if hgb downtrends may need ex lap per surg # Thrombocytosis and Leukocytosis with Sepsis, systemic inflammatory response syndrome --> monitor for improvement --> is on abx, zosyn per id --> per id recs --> wbc 16--.14-->14-->11.7 --> trend plt 465k-->443k # DKA with Uncontrolled DM --> on insulin sliding scale --> endo recs reviewed # Lactic acidosis, --> trend as needed, on ivf, thiamine, folate # Acute renal failure that has been improving. --> sp fluids # Onychomycosis and tinea pedis, --> podiatry consulted # Elevated transaminase level due to etoh use --> trend as needed # Acute respiratory failure --> now extubated, breathing better --> on 2l NC The timing of this note does not necessarily reflect the time of the patient was seen. GREATLY APPRECIATE CONSULTATION. Subjective HEENT: Denies: no symptoms, eye pain, blurred vision, tearing, double vision, ear pain, ear discharge, nose pain, nose congestion, throat pain, throat swelling, mouth pain, mouth swelling, other Cardiovascular: Denies: no symptoms, chest pain, edema, irregular heart rate, lightheadedness, palpitations, syncope, other Gastrointestinal/Abdominal: Denies: no symptoms, abdomen distended, abdominal pain, black stools, tarry stools, blood in stool, constipated, diarrhea, difficulty swallowing, nausea, poor appetite, poor fluid intake, rectal bleeding , vomiting, other Genitourinary: Denies: no symptoms, burning, discharge, frequency, flank pain, hematuria, incontinence, pain, urgency, other Neurologic/Psychiatric: Denies: no symptoms, anxiety, depressed, emotional problems, headache, numbness, paresthesia, pre-existing deficit, seizure, tingling, tremors, weakness, other Endocrine: Denies: no symptoms, excessive sweating, flushing, intolerance to cold, intolerance to heat, increased hunger, increased thirst, increased urine, unexplained weight gain, unexplained weight loss, other Hematologic/Lymphatic: Denies: no symptoms, anemia, easy bleeding, easy bruising, adenopathy, other Allergies: Coded Allergies: No Known Allergies (Unverified , 02/07/19) Subjective 02/09: remains intubated, on vent, able to respond, in turkish, to commands weaning today, h/h reviewed 02/10: icu, extubated, labs reviewed 02/12: on 2l nc, h/h reviewed, no bleeding in sdu 02/13: on nc, no events, no blding, a+o x4 02/15: discharged, passing gas, no f/c, no major changes 02/16: no fever or chills, on abx, resting, no acute events 02/17: no f/c, vs stable, no distress, denies pain, on abx 02/18: no major changes, a+o x4, no bleeding or chills 02/20: labs reviewed, no bleeding, no f/c, no bleeding 02/22: no f/c, no sob, denies pain, off abx 02/23: no bleeding, no chills, no night sweats, no major changes Objective Objective Current Medications Medications (Trade) Dose Ordered Sig/Manish Route PRN Reason Start Time Stop Time Status Last Admin Dose Admin Acetaminophen (Tylenol) 650 mg Q6H PRN ORAL Mild Pain/Temp > 100.5 02/14/19 18:30 03/10/19 18:29 02/21/19 13:21 Dextrose (Dextrose 50%) 25 ml Q30M PRN IV Hypoglycemia 02/14/19 08:30 03/10/19 08:29 Dextrose (Dextrose 50%) 50 ml Q30M PRN IV Hypoglycemia 02/14/19 18:30 03/10/19 18:29 Gabapentin (Neurontin) 300 mg BID ORAL 02/22/19 18:00 03/24/19 17:59 02/23/19 08:27 Hydralazine HCl (Apresoline) 25 mg Q4H PRN ORAL bp over 160 syst 02/14/19 18:30 03/16/19 18:29 02/20/19 23:53 Metoprolol Tartrate (Lopressor) 25 mg Q12HR ORAL 02/14/19 21:00 03/16/19 20:59 02/23/19 08:27 Pantoprazole (Protonix) 40 mg BID ORAL 02/15/19 09:00 03/17/19 08:59 02/23/19 08:27 Potassium Chloride (K-Dur) 40 meq DAILY ORAL 02/16/19 10:00 03/18/19 09:59 02/23/19 08:28 Thiamine HCl (Vitamin B1) 100 mg DAILY ORAL 02/15/19 09:00 03/17/19 08:59 02/23/19 08:27 Last 24 Hour Vital Signs Date Time Temp Pulse Resp B/P (MAP) Pulse Ox O2 Delivery O2 Flow Rate FiO2 02/23/19 08:27 75 138/76 02/23/19 08:00 97.7 75 18 138/76 (96) 96 02/23/19 07:55 102 17 98 Room Air 02/23/19 03:58 98.2 96 20 155/81 (105) 100 02/23/19 00:00 98.3 87 20 144/82 (102) 99 02/22/19 20:39 98 142/83 02/22/19 20:21 Room Air 02/22/19 19:48 98 18 97 Room Air 02/22/19 19:47 98.6 90 18 142/83 (102) 97 02/22/19 16:00 98.2 89 18 142/83 (102) 96 02/22/19 12:00 98.1 96 18 156/83 (107) 96 02/22/19 09:00 Room Air 02/22/19 08:29 105 134/85 02/22/19 08:25 98.0 105 20 134/85 (101) 96 02/22/19 04:00 97.2 81 17 132/80 (97) 97 02/22/19 00:00 97.2 88 17 129/72 (91) 97 02/21/19 21:18 96 18 97 Room Air 21 02/21/19 21:00 Room Air 02/21/19 20:25 96 134/79 02/21/19 20:00 97.2 96 18 134/79 (97) 99 02/21/19 16:00 97.9 100 16 142/77 (98) 99 02/21/19 12:00 98.2 96 19 147/77 (100) 100 02/21/19 10:08 88 131/76 02/21/19 09:58 95 Room Air 21 02/21/19 09:58 88 16 95 Room Air 21 Intake and Output 02/22/19 02/23/19 18:59 06:59 Intake Total 1000 ml Balance 1000 ml Intake Oral 1000 ml # Voids 7 # Bowel Movements 1 Height (Feet): 5 Height (Inches): 5.00 Weight (Pounds): 144 Objective General Appearance: no acute distress HEENT: mucous membranes moist Respiratory/Chest: lungs clear, 2l nc Cardiovascular: normal rate Abdomen: soft, non tender Extremities: no edema Neurologic/Psychiatric: alert, responsive Hal Smith MD Feb 23, 2019 09:25
--- NOTE | 2019-02-23 10:38 | Cardiac Electrophysiology PN ---
Assessment/Plan Assessment/Plan 1. Sinus tachycardia due to DKA and GI bleed. Resolved No evidence of atrial fibrillation or SVT. EF 60%. 2. Hypertension. On Lopressor 25 bid and prn Hydralazine 3. S/P Respiratory failure, Extubated 4. Acute GI bleed, endoscopy by Dr. Conn showed duodenal ulcer. S/P 4 units of blood transfusion. No indication for surgery at this time per Dr. Baumann 5. Diabetic ketoacidosis, on insulin DW RN Subjective Subjective No CP or SOB in NAD. Placement pwnding Objective Last 24 Hour Vital Signs Date Time Temp Pulse Resp B/P (MAP) Pulse Ox O2 Delivery O2 Flow Rate FiO2 02/23/19 08:27 75 138/76 02/23/19 08:00 97.7 75 18 138/76 (96) 96 02/23/19 07:55 102 17 98 Room Air 21 02/23/19 03:58 98.2 96 20 155/81 (105) 100 02/23/19 00:00 98.3 87 20 144/82 (102) 99 02/22/19 20:39 98 142/83 02/22/19 20:21 Room Air 02/22/19 19:48 98 18 97 Room Air 21 02/22/19 19:47 98.6 90 18 142/83 (102) 97 02/22/19 16:00 98.2 89 18 142/83 (102) 96 02/22/19 12:00 98.1 96 18 156/83 (107) 96 Intake and Output 02/22/19 02/23/19 18:59 06:59 Intake Total 1000 ml Balance 1000 ml Intake Oral 1000 ml # Voids 7 # Bowel Movements 1 Objective HEAD AND NECK: No JVD. LUNGS: Decreased breath sounds. CARDIOVASCULAR: Nl S1 and S2 with no gallop. ABDOMEN: Soft. EXTREMITIES: No pitting edema Matthew Kent MD Feb 23, 2019 10:38
--- NOTE | 2019-02-23 10:54 | General Progress Note ---
Assessment/Plan Problem List: (1) GIB (gastrointestinal bleeding) ICD Codes: K92.2 - Gastrointestinal hemorrhage, unspecified SNOMED: 28552100 Status: progressing, unchanged Assessment/Plan: stable H&H on diet cont protonix treat for HP no recurrent bleed Subjective ROS Limited/Unobtainable: Yes Allergies: Coded Allergies: No Known Allergies (Unverified , 02/07/19) Objective Last 24 Hour Vital Signs Date Time Temp Pulse Resp B/P (MAP) Pulse Ox O2 Delivery O2 Flow Rate FiO2 02/23/19 08:27 75 138/76 02/23/19 08:00 97.7 75 18 138/76 (96) 96 02/23/19 07:55 102 17 98 Room Air 21 02/23/19 03:58 98.2 96 20 155/81 (105) 100 02/23/19 00:00 98.3 87 20 144/82 (102) 99 02/22/19 20:39 98 142/83 02/22/19 20:21 Room Air 02/22/19 19:48 98 18 97 Room Air 21 02/22/19 19:47 98.6 90 18 142/83 (102) 97 02/22/19 16:00 98.2 89 18 142/83 (102) 96 02/22/19 12:00 98.1 96 18 156/83 (107) 96 Intake and Output 02/22/19 02/23/19 18:59 06:59 Intake Total 1000 ml Balance 1000 ml Intake Oral 1000 ml # Voids 7 # Bowel Movements 1 Height (Feet): 5 Height (Inches): 5.00 Weight (Pounds): 144 General Appearance: alert EENT: normal ENT inspection Neck: supple Cardiovascular: normal rate Respiratory/Chest: decreased breath sounds Abdomen: normal bowel sounds, non tender, soft Extremities: non-tender Kj Conn MD Feb 23, 2019 10:54
--- NOTE | 2019-02-23 11:18 | Nephrology Progress Note ---
Assessment/Plan Problem List: (1) ARF (acute renal failure) (2) Dehydration (3) Acute respiratory failure (4) Esophageal varices (5) GIB (gastrointestinal bleeding) Assessment Acute renal failure , Cr lower now intubated Dehydration Hyperglycemia high Lactate level esophageal bleed GI bleed . Plan tolerating diet- switch meds to po as possible- in med surg K and Phos and mag supplement as needed per GI- Monitor lytes and renal parameters PT Subjective ROS Limited/Unobtainable: No Constitutional: Reports: malaise Objective Objective Last 24 Hour Vital Signs Date Time Temp Pulse Resp B/P (MAP) Pulse Ox O2 Delivery O2 Flow Rate FiO2 02/23/19 08:27 75 138/76 02/23/19 08:00 97.7 75 18 138/76 (96) 96 02/23/19 07:55 102 17 98 Room Air 21 02/23/19 03:58 98.2 96 20 155/81 (105) 100 02/23/19 00:00 98.3 87 20 144/82 (102) 99 02/22/19 20:39 98 142/83 02/22/19 20:21 Room Air 02/22/19 19:48 98 18 97 Room Air 21 02/22/19 19:47 98.6 90 18 142/83 (102) 97 02/22/19 16:00 98.2 89 18 142/83 (102) 96 02/22/19 12:00 98.1 96 18 156/83 (107) 96 Intake and Output 02/22/19 02/23/19 18:59 06:59 Intake Total 1000 ml Balance 1000 ml Intake Oral 1000 ml # Voids 7 # Bowel Movements 1 Height (Feet): 5 Height (Inches): 5.00 Weight (Pounds): 144 General Appearance: no apparent distress Cardiovascular: normal rate Respiratory/Chest: lungs clear Abdomen: soft Objective no change Arturo Cruz MD Feb 23, 2019 11:18
[2019-02-23] MEDS: Clarithromycin 500mg tab ORAL SCH ×2 (11:37→20:59)
[2019-02-23 12:00] VITALS: BP 149/79
--- NOTE | 2019-02-23 12:24 | NUR ---
NURSE NOTES: patient has not had BM for 5days. notified ACUTE CARE NURSE andreea and received order. colace 100mg po three times a day. miralax 17g po at bed time. order noted and carried out.
[2019-02-23] MEDS: Docusate 100mg cap ORAL SCH ×2 (13:24→17:04)
--- NOTE | 2019-02-23 15:19 | Infectious Diseases Prog Note ---
Assessment/Plan Assessment/Plan IMPRESSION: Sepsis, systemic inflammatory response syndrome, Leukocytosis GI bleeding Duodenal ulcer. DM, off insulin Lactic acidosis, Acute renal failure resolved Onychomycosis tinea pedis treated anemia, received blood transfusion, Elevated transaminase level. Acute respiratory failure resolved H. pylori infection Diabetic neuropathy RECOMMENDATION: Continue Amoxicillin, Biaxin & Protonix Subjective ROS Limited/Unobtainable: Yes Constitutional: Denies: fever Allergies: Coded Allergies: No Known Allergies (Unverified , 02/07/19) Objective Vital Signs Last 24 Hour Vital Signs Date Time Temp Pulse Resp B/P (MAP) Pulse Ox O2 Delivery O2 Flow Rate FiO2 02/23/19 12:00 98.3 83 20 149/79 (102) 95 02/23/19 09:00 Room Air 02/23/19 08:27 75 138/76 02/23/19 08:00 97.7 75 18 138/76 (96) 96 02/23/19 07:55 102 17 98 Room Air 21 02/23/19 03:58 98.2 96 20 155/81 (105) 100 02/23/19 00:00 98.3 87 20 144/82 (102) 99 02/22/19 20:39 98 142/83 02/22/19 20:21 Room Air 02/22/19 19:48 98 18 97 Room Air 21 02/22/19 19:47 98.6 90 18 142/83 (102) 97 02/22/19 16:00 98.2 89 18 142/83 (102) 96 Height (Feet): 5 Height (Inches): 5.00 Weight (Pounds): 144 General Appearance: no acute distress HEENT: mucous membranes moist Respiratory/Chest: lungs clear Cardiovascular: normal rate Abdomen: soft, non tender Extremities: no edema Neurologic/Psychiatric: other - sleeping Current Medications Medications (Trade) Dose Ordered Sig/Manish Route PRN Reason Start Time Stop Time Status Last Admin Dose Admin Acetaminophen (Tylenol) 650 mg Q6H PRN ORAL Mild Pain/Temp > 100.5 02/14/19 18:30 03/10/19 18:29 02/21/19 13:21 Amoxicillin (Amoxil) 1,000 mg BID@0630,1630 ORAL 02/23/19 11:30 03/02/19 11:29 02/23/19 11:37 Clarithromycin (Biaxin) 500 mg EVERY 12 HOURS ORAL 02/23/19 11:30 03/02/19 11:29 02/23/19 11:37 Dextrose (Dextrose 50%) 25 ml Q30M PRN IV Hypoglycemia 02/14/19 08:30 03/10/19 08:29 Dextrose (Dextrose 50%) 50 ml Q30M PRN IV Hypoglycemia 02/14/19 18:30 03/10/19 18:29 Docusate Sodium (Colace) 100 mg THREE TIMES A DAY ORAL 02/23/19 13:00 03/25/19 12:59 02/23/19 13:24 Gabapentin (Neurontin) 300 mg BID ORAL 02/22/19 18:00 03/24/19 17:59 02/23/19 08:27 Hydralazine HCl (Apresoline) 25 mg Q4H PRN ORAL bp over 160 syst 02/14/19 18:30 03/16/19 18:29 02/20/19 23:53 Metoprolol Tartrate (Lopressor) 25 mg Q12HR ORAL 02/14/19 21:00 03/16/19 20:59 02/23/19 08:27 Pantoprazole (Protonix) 40 mg BID ORAL 02/15/19 09:00 03/17/19 08:59 02/23/19 08:27 Polyethylene Glycol (Miralax) 17 gm BEDTIME ORAL 02/23/19 21:00 03/25/19 20:59 Potassium Chloride (K-Dur) 40 meq DAILY ORAL 02/16/19 10:00 03/18/19 09:59 02/23/19 08:28 Thiamine HCl (Vitamin B1) 100 mg DAILY ORAL 02/15/19 09:00 03/17/19 08:59 02/23/19 08:27 Fazal Basilio MD Feb 23, 2019 15:19
--- NOTE | 2019-02-23 15:55 | Surgery Progress Note ---
Surgery Progress Note Subjective Symptoms: other Objective Last 24 Hour Vital Signs Date Time Temp Pulse Resp B/P (MAP) Pulse Ox O2 Delivery O2 Flow Rate FiO2 02/23/19 12:00 98.3 83 20 149/79 (102) 95 02/23/19 09:00 Room Air 02/23/19 08:27 75 138/76 02/23/19 08:00 97.7 75 18 138/76 (96) 96 02/23/19 07:55 102 17 98 Room Air 21 02/23/19 03:58 98.2 96 20 155/81 (105) 100 02/23/19 00:00 98.3 87 20 144/82 (102) 99 02/22/19 20:39 98 142/83 02/22/19 20:21 Room Air 02/22/19 19:48 98 18 97 Room Air 21 02/22/19 19:47 98.6 90 18 142/83 (102) 97 02/22/19 16:00 98.2 89 18 142/83 (102) 96 I&O Intake and Output 02/22/19 02/23/19 19:00 07:00 Intake Total 800 ml 200 ml Balance 800 ml 200 ml Intake Oral 800 ml 200 ml # Voids 3 4 # Bowel Movements 1 Cardiovascular: RSR Respiratory: clear Abdomen: soft, flat, non-tender, present bowel sounds Extremities: no edema, no tenderness, no cyanosis Plan Problems: (1) GIB (gastrointestinal bleeding) Assessment & Plan: 69-year-old male with acute gastrointestinal hemorrhage secondary to large duodenal ulcer. Patient had endoscopy with hemostasis just now identified a large ulcer with potential to rebleed. Need to control patient's hypertension and allow for even permissive hypotension if necessary h/h stable overall doing better labs stable now exam stable Will follow and be available in case patient rebleeds at which time he will require an exploration thank you for allowing me to participate in patient's care d/c planning pending placement will follow with recommendations Adelso Baumann Feb 23, 2019 15:55
[2019-02-23 16:00] VITALS: BP 158/96
--- NOTE | 2019-02-23 18:04 | NUR ---
CASE MANAGEMENT: REVIEW 02/23/2019 SI:DKA. GIB. T 99.2 HR 94 RR 20 B/P 158/96 SATS 95% ON RA NO LABS TODAY IS:PROTONIX IV Q12H VASOTEC IV Q6H ZOSYN IV Q8H THIAMINE IV Q24H MED/SURG
--- NOTE | 2019-02-23 19:16 | NUR ---
HAND-OFF: Report given to RAJI Vivar.
--- NOTE | 2019-02-23 19:35 | NUR ---
NURSE NOTES: Received patient awake,alert,verbal,resting in bed comfortably without complaints.
[2019-02-23 19:52] VITALS: BP 132/80
[2019-02-23] MEDS: Miralax 17gm pkt ORAL SCH (20:59)
--- NOTE | 2019-02-23 21:33 | General Progress Note ---
Assessment/Plan Problem List: (1) ARF (acute renal failure) ICD Codes: N17.9 - Acute kidney failure, unspecified SNOMED: 36674434 Qualifiers: Qualified Codes: N17.9 - Acute kidney failure, unspecified (2) Sepsis ICD Codes: A41.9 - Sepsis, unspecified organism SNOMED: 51129180, 22336649 Qualifiers: Qualified Codes: A41.9 - Sepsis, unspecified organism; R65.20 - Severe sepsis without septic shock; N17.9 - Acute kidney failure, unspecified (3) Lactic acidosis ICD Codes: E87.2 - Acidosis SNOMED: 13419210, 07726891 (4) Anemia ICD Codes: D64.9 - Anemia, unspecified SNOMED: 297723818 (5) DKA (diabetic ketoacidoses) ICD Codes: E11.10 - Type 2 diabetes mellitus with ketoacidosis without coma SNOMED: 676237758, 47730078 Qualifiers: Qualified Codes: E13.10 - Other specified diabetes mellitus with ketoacidosis without coma (6) GIB (gastrointestinal bleeding) ICD Codes: K92.2 - Gastrointestinal hemorrhage, unspecified SNOMED: 76306508 (7) Acute respiratory failure ICD Codes: J96.00 - Acute respiratory failure, unspecified whether with hypoxia or hypercapnia SNOMED: 41723347 (8) Dehydration ICD Codes: E86.0 - Dehydration SNOMED: 17520792, 66067607 Status: progressing, unchanged Assessment/Plan: niddm sugar are good no acute events dka resolved no bleeding Subjective ROS Limited/Unobtainable: Yes Allergies: Coded Allergies: No Known Allergies (Unverified , 02/07/19) Objective Last 24 Hour Vital Signs Date Time Temp Pulse Resp B/P (MAP) Pulse Ox O2 Delivery O2 Flow Rate FiO2 02/23/19 20:59 99 132/80 02/23/19 20:12 Room Air 02/23/19 20:02 99 17 98 Room Air 21 02/23/19 19:52 99.5 107 19 132/80 (97) 97 02/23/19 16:00 99.2 94 20 158/96 (116) 95 02/23/19 12:00 98.3 83 20 149/79 (102) 95 02/23/19 09:00 Room Air 02/23/19 08:27 75 138/76 02/23/19 08:00 97.7 75 18 138/76 (96) 96 02/23/19 07:55 102 17 98 Room Air 21 02/23/19 03:58 98.2 96 20 155/81 (105) 100 02/23/19 00:00 98.3 87 20 144/82 (102) 99 Intake and Output 02/22/19 02/23/19 19:00 07:00 Intake Total 800 ml 200 ml Balance 800 ml 200 ml Intake Oral 800 ml 200 ml # Voids 3 4 # Bowel Movements 1 Height (Feet): 5 Height (Inches): 5.00 Weight (Pounds): 144 Cardiovascular: normal rate Respiratory/Chest: lungs clear Harvey Gee MD Feb 23, 2019 21:33
[2019-02-24 00:03] VITALS: BP 140/74
[2019-02-24 04:00] VITALS: BP 143/85
[2019-02-24 07:00] LABS: BASOPHILS % (AUTO) 1.2 % (0.0-2.0); EOSINOPHILS % (AUTO) 1.7 % (0.0-3.0); HEMATOCRIT 41.1 % (42.0-52.0); HEMOGLOBIN 13.8 G/DL (14.2-18.0); LYMPHOCYTES % (AUTO) 27.5 % (20.0-45.0); MEAN CORPUSCULAR VOLUME 93 FL (80-99); MONOCYTES % (AUTO) 10.2 % (1.0-10.0); NEUTROPHILS % (AUTO) 59.5 % (45.0-75.0); PLATELET COUNT 428 K/UL (150-450); RED BLOOD COUNT 4.42 M/UL (4.70-6.10); RED CELL DISTRIBUTION WIDTH 14.9 % (11.6-14.8); WHITE BLOOD COUNT 6.9 K/UL (4.8-10.8)
--- NOTE | 2019-02-24 07:15 | NUR ---
HAND-OFF: Written Report given to RAJI Jung.
--- NOTE | 2019-02-24 07:57 | Nephrology Progress Note ---
Assessment/Plan Problem List: (1) ARF (acute renal failure) (2) Dehydration (3) Acute respiratory failure (4) Esophageal varices (5) GIB (gastrointestinal bleeding) Assessment Acute renal failure , Cr lower now intubated Dehydration Hyperglycemia high Lactate level esophageal bleed GI bleed . Plan tolerating diet- switch meds to po as possible- in med surg K and Phos and mag supplement as needed per GI- Monitor lytes and renal parameters PT Subjective ROS Limited/Unobtainable: No Objective Objective Last 24 Hour Vital Signs Date Time Temp Pulse Resp B/P (MAP) Pulse Ox O2 Delivery O2 Flow Rate FiO2 02/24/19 04:00 98.6 101 19 143/85 (104) 99 02/24/19 00:03 96.0 89 18 140/74 (96) 98 02/23/19 20:59 99 132/80 02/23/19 20:12 Room Air 02/23/19 20:02 99 17 98 Room Air 21 02/23/19 19:52 99.5 107 19 132/80 (97) 97 02/23/19 16:00 99.2 94 20 158/96 (116) 95 02/23/19 12:00 98.3 83 20 149/79 (102) 95 02/23/19 09:00 Room Air 02/23/19 08:27 75 138/76 02/23/19 08:00 97.7 75 18 138/76 (96) 96 Intake and Output 02/23/19 02/24/19 19:00 07:00 Intake Total 480 ml Balance 480 ml Intake Oral 480 ml # Voids 4 3 Current Medications Medications (Trade) Dose Ordered Sig/Manish Route PRN Reason Start Time Stop Time Status Last Admin Dose Admin Acetaminophen (Tylenol) 650 mg Q6H PRN ORAL Mild Pain/Temp > 100.5 02/14/19 18:30 03/10/19 18:29 02/21/19 13:21 Amoxicillin (Amoxil) 1,000 mg BID@0630,1630 ORAL 02/23/19 11:30 03/02/19 11:29 02/24/19 05:35 Clarithromycin (Biaxin) 500 mg EVERY 12 HOURS ORAL 02/23/19 11:30 03/02/19 11:29 02/23/19 20:59 Dextrose (Dextrose 50%) 25 ml Q30M PRN IV Hypoglycemia 8/27/19 08:30 03/10/19 08:29 Dextrose (Dextrose 50%) 50 ml Q30M PRN IV Hypoglycemia 02/14/19 18:30 03/10/19 18:29 Docusate Sodium (Colace) 100 mg THREE TIMES A DAY ORAL 02/23/19 13:00 03/25/19 12:59 02/23/19 17:04 Gabapentin (Neurontin) 300 mg BID ORAL 02/22/19 18:00 03/24/19 17:59 02/23/19 17:04 Hydralazine HCl (Apresoline) 25 mg Q4H PRN ORAL bp over 160 syst 02/14/19 18:30 03/16/19 18:29 02/20/19 23:53 Metoprolol Tartrate (Lopressor) 25 mg Q12HR ORAL 02/14/19 21:00 03/16/19 20:59 02/23/19 20:59 Pantoprazole (Protonix) 40 mg BID ORAL 02/15/19 09:00 03/17/19 08:59 02/23/19 17:04 Polyethylene Glycol (Miralax) 17 gm BEDTIME ORAL 02/23/19 21:00 03/25/19 20:59 02/23/19 20:59 Potassium Chloride (K-Dur) 40 meq DAILY ORAL 02/16/19 10:00 03/18/19 09:59 02/23/19 08:28 Thiamine HCl (Vitamin B1) 100 mg DAILY ORAL 02/15/19 09:00 03/17/19 08:59 02/23/19 08:27 Laboratory Tests 02/24/19 05:30: White Blood Count 6.9, Red Blood Count 4.42L, Hemoglobin 13.8L, Hematocrit 41.1L , Mean Corpuscular Volume 93, Mean Corpuscular Hemoglobin 31.2H, Mean Corpuscular Hemoglobin Concent 33.5, Red Cell Distribution Width 14.9H, Platelet Count 428, Mean Platelet Volume 4.7L, Neutrophils (%) (Auto) 59.5, Lymphocytes (%) (Auto) 27.5, Monocytes (%) (Auto) 10.2H, Eosinophils (%) (Auto) 1.7, Basophils (%) (Auto) 1.2 Height (Feet): 5 Height (Inches): 5.00 Weight (Pounds): 144 General Appearance: no apparent distress Objective no change Arturo Cruz MD Feb 24, 2019 07:57
[2019-02-24 08:00] VITALS: BP 139/84
--- NOTE | 2019-02-24 09:01 | Hematology/Onc Progress Note ---
Assessment/Plan Assessment/Plan # Anemia due to underlying gi bleed, sp egd which showed duodenal ulceration, failed hemostasis --> continue ppi --> coags slightly elevated, nsider vit K if persistent bleeding --> transfuse if hgb <7 --> no indication for surgery --> trend hgb 13-->11.1-->11->12-->13.7->13.3-->13.8 --> if hgb downtrends may need ex lap per surg # Thrombocytosis and Leukocytosis with Sepsis, systemic inflammatory response syndrome --> monitor for improvement --> is on abx, zosyn per id --> per id recs --> wbc 16--.14-->14-->11.7-->6.9 --> trend plt 465k-->443k # DKA with Uncontrolled DM --> on insulin sliding scale --> endo recs reviewed # Lactic acidosis, --> trend as needed, on ivf, thiamine, folate # Acute renal failure that has been improving. --> sp fluids # Onychomycosis and tinea pedis, --> podiatry consulted # Elevated transaminase level due to etoh use --> trend as needed # Acute respiratory failure --> now extubated, breathing better --> on 2l NC The timing of this note does not necessarily reflect the time of the patient was seen. GREATLY APPRECIATE CONSULTATION. Subjective Allergies: Coded Allergies: No Known Allergies (Unverified , 02/07/19) Subjective 02/09: remains intubated, on vent, able to respond, in yoruba, to commands weaning today, h/h reviewed 02/10: icu, extubated, labs reviewed 02/12: on 2l nc, h/h reviewed, no bleeding in sdu 02/13: on nc, no events, no blding, a+o x4 02/15: discharged, passing gas, no f/c, no major changes 02/16: no fever or chills, on abx, resting, no acute events 02/17: no f/c, vs stable, no distress, denies pain, on abx 02/18: no major changes, a+o x4, no bleeding or chills 02/20: labs reviewed, no bleeding, no f/c, no bleeding 02/22: no f/c, no sob, denies pain, off abx 02/23: no bleeding, no chills, no night sweats, no major changes 02/24: no f/c, on abx, no complaints, labs reviewed Objective Objective Current Medications Medications (Trade) Dose Ordered Sig/Manish Route PRN Reason Start Time Stop Time Status Last Admin Dose Admin Acetaminophen (Tylenol) 650 mg Q6H PRN ORAL Mild Pain/Temp > 100.5 02/14/19 18:30 03/10/19 18:29 02/21/19 13:21 Amoxicillin (Amoxil) 1,000 mg BID@0630,1630 ORAL 02/23/19 11:30 03/02/19 11:29 02/24/19 05:35 Clarithromycin (Biaxin) 500 mg EVERY 12 HOURS ORAL 02/23/19 11:30 03/02/19 11:29 02/23/19 20:59 Dextrose (Dextrose 50%) 25 ml Q30M PRN IV Hypoglycemia 02/14/19 08:30 03/10/19 08:29 Dextrose (Dextrose 50%) 50 ml Q30M PRN IV Hypoglycemia 02/14/19 18:30 03/10/19 18:29 Docusate Sodium (Colace) 100 mg THREE TIMES A DAY ORAL 02/23/19 13:00 03/25/19 12:59 02/23/19 17:04 Gabapentin (Neurontin) 300 mg BID ORAL 02/22/19 18:00 03/24/19 17:59 02/23/19 17:04 Hydralazine HCl (Apresoline) 25 mg Q4H PRN ORAL bp over 160 syst 02/14/19 18:30 03/16/19 18:29 02/20/19 23:53 Metoprolol Tartrate (Lopressor) 25 mg Q12HR ORAL 02/14/19 21:00 03/16/19 20:59 02/23/19 20:59 Pantoprazole (Protonix) 40 mg BID ORAL 02/15/19 09:00 03/17/19 08:59 02/23/19 17:04 Polyethylene Glycol (Miralax) 17 gm BEDTIME ORAL 02/23/19 21:00 03/25/19 20:59 02/23/19 20:59 Potassium Chloride (K-Dur) 40 meq DAILY ORAL 02/16/19 10:00 03/18/19 09:59 02/23/19 08:28 Thiamine HCl (Vitamin B1) 100 mg DAILY ORAL 02/15/19 09:00 03/17/19 08:59 02/23/19 08:27 Last 24 Hour Vital Signs Date Time Temp Pulse Resp B/P (MAP) Pulse Ox O2 Delivery O2 Flow Rate FiO2 02/24/19 07:53 100 19 98 Room Air 21 02/24/19 04:00 98.6 101 19 143/85 (104) 99 02/24/19 00:03 96.0 89 18 140/74 (96) 98 02/23/19 20:59 99 132/80 02/23/19 20:12 Room Air 02/23/19 20:02 99 17 98 Room Air 21 02/23/19 19:52 99.5 107 19 132/80 (97) 97 02/23/19 16:00 99.2 94 20 158/96 (116) 95 02/23/19 12:00 98.3 83 20 149/79 (102) 95 02/23/19 09:00 Room Air 02/23/19 08:27 75 138/76 02/23/19 08:00 97.7 75 18 138/76 (96) 96 02/23/19 07:55 102 17 98 Room Air 21 02/23/19 03:58 98.2 96 20 155/81 (105) 100 02/23/19 00:00 98.3 87 20 144/82 (102) 99 02/22/19 20:39 98 142/83 02/22/19 20:21 Room Air 02/22/19 19:48 98 18 97 Room Air 21 02/22/19 19:47 98.6 90 18 142/83 (102) 97 02/22/19 16:00 98.2 89 18 142/83 (102) 96 02/22/19 12:00 98.1 96 18 156/83 (107) 96 02/22/19 09:00 Room Air Intake and Output 02/23/19 02/24/19 18:59 06:59 Intake Total 480 ml Balance 480 ml Intake Oral 480 ml # Voids 4 3 Labs Test 02/24/19 05:30 White Blood Count 6.9 K/UL (4.8-10.8) Red Blood Count 4.42 M/UL (4.70-6.10) Hemoglobin 13.8 G/DL (14.2-18.0) Hematocrit 41.1 % (42.0-52.0) Mean Corpuscular Volume 93 FL (80-99) Mean Corpuscular Hemoglobin 31.2 PG (27.0-31.0) Mean Corpuscular Hemoglobin Concent 33.5 G/DL (32.0-36.0) Red Cell Distribution Width 14.9 % (11.6-14.8) Platelet Count 428 K/UL (150-450) Mean Platelet Volume 4.7 FL (6.5-10.1) Neutrophils (%) (Auto) 59.5 % (45.0-75.0) Lymphocytes (%) (Auto) 27.5 % (20.0-45.0) Monocytes (%) (Auto) 10.2 % (1.0-10.0) Eosinophils (%) (Auto) 1.7 % (0.0-3.0) Basophils (%) (Auto) 1.2 % (0.0-2.0) Height (Feet): 5 Height (Inches): 5.00 Weight (Pounds): 144 Objective General Appearance: no acute distress HEENT: mucous membranes moist Respiratory/Chest: lungs clear, 2l nc Cardiovascular: normal rate Abdomen: soft, non tender Extremities: no edema Neurologic/Psychiatric: alert, responsive Hal Smith MD Feb 24, 2019 09:01
[2019-02-24] MEDS: Docusate 100mg cap ORAL SCH ×3 (09:15→17:45)
[2019-02-24] MEDS: Thiamine 100mg tab ORAL SCH (09:15)
[2019-02-24] MEDS: Clarithromycin 500mg tab ORAL SCH ×2 (09:15→20:27)
[2019-02-24] MEDS: Metoprolol 25mg tab ORAL SCH ×2 (09:16→20:28)
--- NOTE | 2019-02-24 09:54 | General Progress Note ---
Assessment/Plan Problem List: (1) GIB (gastrointestinal bleeding) ICD Codes: K92.2 - Gastrointestinal hemorrhage, unspecified SNOMED: 64052259 Status: progressing, unchanged Assessment/Plan: stable H&H on diet cont protonix treat for HP no recurrent bleed Subjective ROS Limited/Unobtainable: Yes Allergies: Coded Allergies: No Known Allergies (Unverified , 02/07/19) Objective Last 24 Hour Vital Signs Date Time Temp Pulse Resp B/P (MAP) Pulse Ox O2 Delivery O2 Flow Rate FiO2 02/24/19 09:16 100 143/85 02/24/19 07:53 100 19 98 Room Air 21 02/24/19 04:00 98.6 101 19 143/85 (104) 99 02/24/19 00:03 96.0 89 18 140/74 (96) 98 02/23/19 20:59 99 132/80 02/23/19 20:12 Room Air 02/23/19 20:02 99 17 98 Room Air 21 02/23/19 19:52 99.5 107 19 132/80 (97) 97 02/23/19 16:00 99.2 94 20 158/96 (116) 95 02/23/19 12:00 98.3 83 20 149/79 (102) 95 Intake and Output 02/23/19 02/24/19 18:59 06:59 Intake Total 480 ml Balance 480 ml Intake Oral 480 ml # Voids 4 3 Laboratory Tests 02/24/19 05:30: White Blood Count 6.9, Red Blood Count 4.42L, Hemoglobin 13.8L, Hematocrit 41.1L , Mean Corpuscular Volume 93, Mean Corpuscular Hemoglobin 31.2H, Mean Corpuscular Hemoglobin Concent 33.5, Red Cell Distribution Width 14.9H, Platelet Count 428, Mean Platelet Volume 4.7L, Neutrophils (%) (Auto) 59.5, Lymphocytes (%) (Auto) 27.5, Monocytes (%) (Auto) 10.2H, Eosinophils (%) (Auto) 1.7, Basophils (%) (Auto) 1.2 Height (Feet): 5 Height (Inches): 5.00 Weight (Pounds): 144 General Appearance: no apparent distress EENT: normal ENT inspection Neck: supple Cardiovascular: normal rate Respiratory/Chest: decreased breath sounds Abdomen: normal bowel sounds, non tender, soft Extremities: non-tender Kj Conn MD Feb 24, 2019 09:54
--- NOTE | 2019-02-24 11:07 | NUR ---
Social Service Note SW discussed with PT w/c training to show independence with transfer from bed to w/c and toilet to w/c. SW exploring Recuperative Care placement. Will continue to monitor.
[2019-02-24 12:00] VITALS: BP 145/79
--- NOTE | 2019-02-24 12:26 | Infectious Diseases Prog Note ---
Assessment/Plan Assessment/Plan IMPRESSION: Sepsis, resolved systemic inflammatory response syndrome, Leukocytosis GI bleeding Duodenal ulcer. DM, off insulin Lactic acidosis, Acute renal failure resolved Onychomycosis tinea pedis treated anemia, received blood transfusion, Elevated transaminase level. Acute respiratory failure resolved H. pylori infection Diabetic neuropathy RECOMMENDATION: Continue Amoxicillin, Biaxin & Protonix Waiting for placement Subjective ROS Limited/Unobtainable: Yes Constitutional: Denies: fever Allergies: Coded Allergies: No Known Allergies (Unverified , 02/07/19) Objective Vital Signs Last 24 Hour Vital Signs Date Time Temp Pulse Resp B/P (MAP) Pulse Ox O2 Delivery O2 Flow Rate FiO2 02/24/19 12:00 98.6 100 18 145/79 (101) 99 02/24/19 09:16 100 143/85 02/24/19 09:00 Room Air 02/24/19 08:00 98.2 98 20 139/84 (102) 98 02/24/19 07:53 100 19 98 Room Air 21 02/24/19 04:00 98.6 101 19 143/85 (104) 99 02/24/19 00:03 96.0 89 18 140/74 (96) 98 02/23/19 20:59 99 132/80 02/23/19 20:12 Room Air 02/23/19 20:02 99 17 98 Room Air 21 02/23/19 19:52 99.5 107 19 132/80 (97) 97 02/23/19 16:00 99.2 94 20 158/96 (116) 95 Height (Feet): 5 Height (Inches): 5.00 Weight (Pounds): 144 General Appearance: no acute distress HEENT: mucous membranes moist Respiratory/Chest: lungs clear Cardiovascular: normal rate Abdomen: soft, non tender Extremities: no edema Neurologic/Psychiatric: other - sleeping Laboratory Tests Test 02/24/19 05:30 White Blood Count 6.9 K/UL (4.8-10.8) Red Blood Count 4.42 M/UL (4.70-6.10) L Hemoglobin 13.8 G/DL (14.2-18.0) L Hematocrit 41.1 % (42.0-52.0) L Mean Corpuscular Volume 93 FL (80-99) Mean Corpuscular Hemoglobin 31.2 PG (27.0-31.0) H Mean Corpuscular Hemoglobin Concent 33.5 G/DL (32.0-36.0) Red Cell Distribution Width 14.9 % (11.6-14.8) H Platelet Count 428 K/UL (150-450) Mean Platelet Volume 4.7 FL (6.5-10.1) L Neutrophils (%) (Auto) 59.5 % (45.0-75.0) Lymphocytes (%) (Auto) 27.5 % (20.0-45.0) Monocytes (%) (Auto) 10.2 % (1.0-10.0) H Eosinophils (%) (Auto) 1.7 % (0.0-3.0) Basophils (%) (Auto) 1.2 % (0.0-2.0) Current Medications Medications (Trade) Dose Ordered Sig/Manish Route PRN Reason Start Time Stop Time Status Last Admin Dose Admin Acetaminophen (Tylenol) 650 mg Q6H PRN ORAL Mild Pain/Temp > 100.5 02/14/19 18:30 03/10/19 18:29 02/21/19 13:21 Amoxicillin (Amoxil) 1,000 mg BID@0630,1630 ORAL 02/23/19 11:30 03/02/19 11:29 02/24/19 05:35 Clarithromycin (Biaxin) 500 mg EVERY 12 HOURS ORAL 02/23/19 11:30 03/02/19 11:29 02/24/19 09:15 Dextrose (Dextrose 50%) 25 ml Q30M PRN IV Hypoglycemia 02/14/19 08:30 03/10/19 08:29 Dextrose (Dextrose 50%) 50 ml Q30M PRN IV Hypoglycemia 02/14/19 18:30 03/10/19 18:29 Docusate Sodium (Colace) 100 mg THREE TIMES A DAY ORAL 02/23/19 13:00 03/25/19 12:59 02/24/19 12:01 Gabapentin (Neurontin) 300 mg BID ORAL 02/22/19 18:00 03/24/19 17:59 02/24/19 09:15 Hydralazine HCl (Apresoline) 25 mg Q4H PRN ORAL bp over 160 syst 02/14/19 18:30 03/16/19 18:29 9/2/19 23:53 Metoprolol Tartrate (Lopressor) 25 mg Q12HR ORAL 02/14/19 21:00 03/16/19 20:59 02/24/19 09:16 Pantoprazole (Protonix) 40 mg BID ORAL 02/15/19 09:00 03/17/19 08:59 02/24/19 09:16 Polyethylene Glycol (Miralax) 17 gm BEDTIME ORAL 02/23/19 21:00 03/25/19 20:59 02/23/19 20:59 Potassium Chloride (K-Dur) 40 meq DAILY ORAL 02/16/19 10:00 03/18/19 09:59 02/24/19 09:15 Thiamine HCl (Vitamin B1) 100 mg DAILY ORAL 02/15/19 09:00 03/17/19 08:59 02/24/19 09:15 Fazal Basilio MD Feb 24, 2019 12:26
--- NOTE | 2019-02-24 13:11 | NUR ---
PT WEEKLY PROGRESS NOTE Patient currently being seen for therapeutic exercises, transfer training, gait training and wheelchair training. Patient able to transfer bed<->wheelchair with SBA, no physical assistance needed however patient moves slowly, takes extra time to complete task due to pain bilateral feet and tightness bilateral ankles. Verbal cueing for proper foot placement and proper SHAHZAD for better stability and safety. Patient able to ambulate 15 feet with SBA/CGA and FWW. Patient able to propel self in wheelchair in hallway x 120 ft with supervision. Patient will benefit from continued skilled inpatient PT intervention to address strength, balance, safety and functional mobility.
--- NOTE | 2019-02-24 14:32 | NUR ---
[facility] NUR[facility] SI: IAN RigginsJhonny 98.6 HR 100 RR 18 B/P 145/79 IS: BIAXIN PO AMOXICILLIN PO K-DUR PO PROTONIX PO MED/SURG STATUS
--- NOTE | 2019-02-24 14:47 | Cardiac Electrophysiology PN ---
Assessment/Plan Assessment/Plan 1. Sinus tachycardia due to DKA and GI bleed. Resolved No evidence of atrial fibrillation or SVT. EF 60%. 2. Hypertension. On Lopressor 25 bid and prn Hydralazine 3. S/P Respiratory failure, Extubated 4. Acute GI bleed, endoscopy by Dr. Conn showed duodenal ulcer. S/P 4 units of blood transfusion. No indication for surgery at this time per Dr. Baumann 5. Diabetic ketoacidosis, on insulin 6. Homelessness DW RN Subjective Subjective No CP or SOB. Placement pending Objective Last 24 Hour Vital Signs Date Time Temp Pulse Resp B/P (MAP) Pulse Ox O2 Delivery O2 Flow Rate FiO2 02/24/19 12:00 98.6 100 18 145/79 (101) 99 02/24/19 09:16 100 143/85 02/24/19 09:00 Room Air 02/24/19 08:00 98.2 98 20 139/84 (102) 98 02/24/19 07:53 100 19 98 Room Air 21 02/24/19 04:00 98.6 101 19 143/85 (104) 99 02/24/19 00:03 96.0 89 18 140/74 (96) 98 02/23/19 20:59 99 132/80 02/23/19 20:12 Room Air 02/23/19 20:02 99 17 98 Room Air 21 02/23/19 19:52 99.5 107 19 132/80 (97) 97 02/23/19 16:00 99.2 94 20 158/96 (116) 95 Intake and Output 02/23/19 02/24/19 18:59 06:59 Intake Total 480 ml Balance 480 ml Intake Oral 480 ml # Voids 4 3 Laboratory Tests Test 02/24/19 05:30 White Blood Count 6.9 K/UL (4.8-10.8) Red Blood Count 4.42 M/UL (4.70-6.10) L Hemoglobin 13.8 G/DL (14.2-18.0) L Hematocrit 41.1 % (42.0-52.0) L Mean Corpuscular Volume 93 FL (80-99) Mean Corpuscular Hemoglobin 31.2 PG (27.0-31.0) H Mean Corpuscular Hemoglobin Concent 33.5 G/DL (32.0-36.0) Red Cell Distribution Width 14.9 % (11.6-14.8) H Platelet Count 428 K/UL (150-450) Mean Platelet Volume 4.7 FL (6.5-10.1) L Neutrophils (%) (Auto) 59.5 % (45.0-75.0) Lymphocytes (%) (Auto) 27.5 % (20.0-45.0) Monocytes (%) (Auto) 10.2 % (1.0-10.0) H Eosinophils (%) (Auto) 1.7 % (0.0-3.0) Basophils (%) (Auto) 1.2 % (0.0-2.0) Objective HEAD AND NECK: No JVD. LUNGS: Decreased breath sounds. CARDIOVASCULAR: Nl S1 and S2 with no gallop. ABDOMEN: Soft. EXTREMITIES: No pitting edema Matthew Kent MD Feb 24, 2019 14:47
--- NOTE | 2019-02-24 15:03 | Surgery Progress Note ---
Surgery Progress Note Subjective Symptoms: improved, tolerating diet, voiding well, passing flatus, BM Objective Last 24 Hour Vital Signs Date Time Temp Pulse Resp B/P (MAP) Pulse Ox O2 Delivery O2 Flow Rate FiO2 02/24/19 12:00 98.6 100 18 145/79 (101) 99 02/24/19 09:16 100 143/85 02/24/19 09:00 Room Air 02/24/19 08:00 98.2 98 20 139/84 (102) 98 02/24/19 07:53 100 19 98 Room Air 21 02/24/19 04:00 98.6 101 19 143/85 (104) 99 02/24/19 00:03 96.0 89 18 140/74 (96) 98 02/23/19 20:59 99 132/80 02/23/19 20:12 Room Air 02/23/19 20:02 99 17 98 Room Air 21 02/23/19 19:52 99.5 107 19 132/80 (97) 97 02/23/19 16:00 99.2 94 20 158/96 (116) 95 I&O Intake and Output 02/23/19 02/24/19 18:59 06:59 Intake Total 480 ml Balance 480 ml Intake Oral 480 ml # Voids 4 3 Cardiovascular: RSR Respiratory: clear Abdomen: soft, present bowel sounds, non-distended Extremities: no edema, no tenderness, no cyanosis Laboratory Tests Test 02/24/19 05:30 White Blood Count 6.9 K/UL (4.8-10.8) Red Blood Count 4.42 M/UL (4.70-6.10) L Hemoglobin 13.8 G/DL (14.2-18.0) L Hematocrit 41.1 % (42.0-52.0) L Mean Corpuscular Volume 93 FL (80-99) Mean Corpuscular Hemoglobin 31.2 PG (27.0-31.0) H Mean Corpuscular Hemoglobin Concent 33.5 G/DL (32.0-36.0) Red Cell Distribution Width 14.9 % (11.6-14.8) H Platelet Count 428 K/UL (150-450) Mean Platelet Volume 4.7 FL (6.5-10.1) L Neutrophils (%) (Auto) 59.5 % (45.0-75.0) Lymphocytes (%) (Auto) 27.5 % (20.0-45.0) Monocytes (%) (Auto) 10.2 % (1.0-10.0) H Eosinophils (%) (Auto) 1.7 % (0.0-3.0) Basophils (%) (Auto) 1.2 % (0.0-2.0) Plan Problems: (1) GIB (gastrointestinal bleeding) Assessment & Plan: 69-year-old male with acute gastrointestinal hemorrhage secondary to large duodenal ulcer. Patient had endoscopy with hemostasis just now identified a large ulcer with potential to rebleed. Need to control patient's hypertension and allow for even permissive hypotension if necessary h/h stable overall doing better labs stable now exam stable Will follow and be available in case patient rebleeds at which time he will require an exploration thank you for allowing me to participate in patient's care d/c planning pending placement will follow with recommendations Adelso Baumann Feb 24, 2019 15:03
[2019-02-24 15:50] VITALS: BP 140/82
[2019-02-24] MEDS ORDERED: Magnesium Citrate Liq Btl ORAL SCH (18:00)
--- NOTE | 2019-02-24 19:19 | NUR ---
HAND-OFF: Report given to Marciu RN.
[2019-02-24 20:00] VITALS: BP 146/80
--- NOTE | 2019-02-24 20:02 | NUR ---
NURSE NOTES: Received report from RAJI Palacios. Patient aao x 4. Breathing unlabored without distress, discomfort, or sob on room air. Denies pain at this time. IV site noted on right hand intact, dry, and patent, saline locked. Bed placed at the lowest with alarm, brake, and side rails up for safety. Call light placed within reach. Will continue to monitor and provide care as ordered.
[2019-02-24] MEDS: Miralax 17gm pkt ORAL SCH (20:28)
--- NOTE | 2019-02-24 22:34 | General Progress Note ---
Assessment/Plan Problem List: (1) ARF (acute renal failure) ICD Codes: N17.9 - Acute kidney failure, unspecified SNOMED: 25958033 Qualifiers: Qualified Codes: N17.9 - Acute kidney failure, unspecified (2) Sepsis ICD Codes: A41.9 - Sepsis, unspecified organism SNOMED: 27757453, 03431400 Qualifiers: Qualified Codes: A41.9 - Sepsis, unspecified organism; R65.20 - Severe sepsis without septic shock; N17.9 - Acute kidney failure, unspecified (3) Lactic acidosis ICD Codes: E87.2 - Acidosis SNOMED: 51356401, 16651822 (4) Anemia ICD Codes: D64.9 - Anemia, unspecified SNOMED: 946011855 (5) DKA (diabetic ketoacidoses) ICD Codes: E11.10 - Type 2 diabetes mellitus with ketoacidosis without coma SNOMED: 834967032, 35060557 Qualifiers: Qualified Codes: E13.10 - Other specified diabetes mellitus with ketoacidosis without coma (6) GIB (gastrointestinal bleeding) ICD Codes: K92.2 - Gastrointestinal hemorrhage, unspecified SNOMED: 85637171 (7) Acute respiratory failure ICD Codes: J96.00 - Acute respiratory failure, unspecified whether with hypoxia or hypercapnia SNOMED: 61479604 (8) Dehydration ICD Codes: E86.0 - Dehydration SNOMED: 15562581, 03919596 Status: progressing, unchanged Assessment/Plan: needs placement advanced diet check h/h no diarrhea dka resolved no bleeding Subjective ROS Limited/Unobtainable: Yes Allergies: Coded Allergies: No Known Allergies (Unverified , 02/07/19) Objective Last 24 Hour Vital Signs Date Time Temp Pulse Resp B/P (MAP) Pulse Ox O2 Delivery O2 Flow Rate FiO2 02/24/19 20:28 99 146/80 02/24/19 20:00 98.3 99 16 146/80 (102) 96 02/24/19 15:50 98.3 98 18 140/82 (101) 98 02/24/19 12:00 98.6 100 18 145/79 (101) 99 02/24/19 09:16 100 143/85 02/24/19 09:00 Room Air 02/24/19 08:00 98.2 98 20 139/84 (102) 98 02/24/19 07:53 100 19 98 Room Air 21 02/24/19 04:00 98.6 101 19 143/85 (104) 99 02/24/19 00:03 96.0 89 18 140/74 (96) 98 Intake and Output 02/23/19 02/24/19 19:00 07:00 Intake Total 480 ml Balance 480 ml Intake Oral 480 ml # Voids 4 3 Laboratory Tests 02/24/19 05:30: White Blood Count 6.9, Red Blood Count 4.42L, Hemoglobin 13.8L, Hematocrit 41.1L , Mean Corpuscular Volume 93, Mean Corpuscular Hemoglobin 31.2H, Mean Corpuscular Hemoglobin Concent 33.5, Red Cell Distribution Width 14.9H, Platelet Count 428, Mean Platelet Volume 4.7L, Neutrophils (%) (Auto) 59.5, Lymphocytes (%) (Auto) 27.5, Monocytes (%) (Auto) 10.2H, Eosinophils (%) (Auto) 1.7, Basophils (%) (Auto) 1.2 Height (Feet): 5 Height (Inches): 5.00 Weight (Pounds): 144 Neck: supple Cardiovascular: normal rate Respiratory/Chest: lungs clear Harvey Gee MD Feb 24, 2019 22:34
[2019-02-25] VITALS: BP 130/64
[2019-02-25 04:00] VITALS: BP 137/80
[2019-02-25 05:48] LABS: BASOPHILS % (AUTO) 1.3 % (0.0-2.0); EOSINOPHILS % (AUTO) 2.3 % (0.0-3.0); HEMATOCRIT 41.8 % (42.0-52.0); HEMOGLOBIN 14.1 G/DL (14.2-18.0); LYMPHOCYTES % (AUTO) 29.6 % (20.0-45.0); MEAN CORPUSCULAR VOLUME 94 FL (80-99); MONOCYTES % (AUTO) 10.9 % (1.0-10.0); NEUTROPHILS % (AUTO) 55.8 % (45.0-75.0); PLATELET COUNT 428 K/UL (150-450); RED BLOOD COUNT 4.45 M/UL (4.70-6.10); RED CELL DISTRIBUTION WIDTH 14.7 % (11.6-14.8); WHITE BLOOD COUNT 7.3 K/UL (4.8-10.8)
--- NOTE | 2019-02-25 07:59 | NUR ---
HAND-OFF: Report given to RAJI Palacios.
[2019-02-25 08:00] VITALS: BP 159/90
--- NOTE | 2019-02-25 08:01 | NUR ---
NURSE NOTES: Patient received in stable condition, resting in bed. Alert and oriented. Denies pain or SOB at this time. Bed locked in lowest position, call light placed within reach. Will continue to monitor.
[2019-02-25] MEDS: Metoprolol 25mg tab ORAL SCH ×2 (08:05→21:29)
[2019-02-25] MEDS: Docusate 100mg cap ORAL SCH ×3 (08:05→17:06)
[2019-02-25] MEDS: Clarithromycin 500mg tab ORAL SCH ×2 (08:05→21:29)
[2019-02-25] MEDS: Thiamine 100mg tab ORAL SCH (08:06)
--- NOTE | 2019-02-25 09:15 | Hematology/Onc Progress Note ---
Assessment/Plan Assessment/Plan # Anemia due to underlying gi bleed, sp egd which showed duodenal ulceration, failed hemostasis --> continue ppi --> coags slightly elevated, nsider vit K if persistent bleeding --> transfuse if hgb <7 --> no indication for surgery --> trend hgb 13-->11.1-->11->12-->13.7->13.3-->13.8 --> if hgb downtrends may need ex lap per surg # Thrombocytosis and Leukocytosis with Sepsis, systemic inflammatory response syndrome --> monitor for improvement --> is on abx, zosyn per id--> amoxicillin --> per id recs --> wbc 16--.14-->14-->11.7-->6.9 --> trend plt 465k-->443k # DKA with Uncontrolled DM --> on insulin sliding scale --> endo recs reviewed # Lactic acidosis, --> trend as needed, on ivf, thiamine, folate # Acute renal failure that has been improving. --> sp fluids # Onychomycosis and tinea pedis, --> podiatry consulted # Elevated transaminase level due to etoh use --> trend as needed # Acute respiratory failure --> now extubated, breathing better --> on 2l NC The timing of this note does not necessarily reflect the time of the patient was seen. GREATLY APPRECIATE CONSULTATION. Subjective HEENT: Denies: no symptoms, eye pain, blurred vision, tearing, double vision, ear pain, ear discharge, nose pain, nose congestion, throat pain, throat swelling, mouth pain, mouth swelling, other Cardiovascular: Denies: no symptoms, chest pain, edema, irregular heart rate, lightheadedness, palpitations, syncope, other Respiratory: Denies: no symptoms, cough, shortness of breath, SOB with excertion, SOB at rest, sputum, wheezing, other Gastrointestinal/Abdominal: Denies: no symptoms, abdomen distended, abdominal pain, black stools, tarry stools, blood in stool, constipated, diarrhea, difficulty swallowing, nausea, poor appetite, poor fluid intake, rectal bleeding , vomiting, other Genitourinary: Denies: no symptoms, burning, discharge, frequency, flank pain, hematuria, incontinence, pain, urgency, other Neurologic/Psychiatric: Denies: no symptoms, anxiety, depressed, emotional problems, headache, numbness, paresthesia, pre-existing deficit, seizure, tingling, tremors, weakness, other Endocrine: Denies: no symptoms, excessive sweating, flushing, intolerance to cold, intolerance to heat, increased hunger, increased thirst, increased urine, unexplained weight gain, unexplained weight loss, other Allergies: Coded Allergies: No Known Allergies (Unverified , 02/07/19) Subjective 02/09: remains intubated, on vent, able to respond, in cymro, to commands weaning today, h/h reviewed 02/10: icu, extubated, labs reviewed 02/12: on 2l nc, h/h reviewed, no bleeding in sdu 02/13: on nc, no events, no blding, a+o x4 02/15: discharged, passing gas, no f/c, no major changes 02/16: no fever or chills, on abx, resting, no acute events 02/17: no f/c, vs stable, no distress, denies pain, on abx 02/18: no major changes, a+o x4, no bleeding or chills 02/20: labs reviewed, no bleeding, no f/c, no bleeding 02/22: no f/c, no sob, denies pain, off abx 02/23: no bleeding, no chills, no night sweats, no major changes 02/24: no f/c, on abx, no complaints, labs reviewed 02/25: no complaints, no f/c, stable Objective Objective Current Medications Medications (Trade) Dose Ordered Sig/Manish Route PRN Reason Start Time Stop Time Status Last Admin Dose Admin Acetaminophen (Tylenol) 650 mg Q6H PRN ORAL Mild Pain/Temp > 100.5 02/14/19 18:30 03/10/19 18:29 02/21/19 13:21 Amoxicillin (Amoxil) 1,000 mg BID@0630,1630 ORAL 02/23/19 11:30 03/02/19 11:29 02/25/19 06:10 Clarithromycin (Biaxin) 500 mg EVERY 12 HOURS ORAL 02/23/19 11:30 03/02/19 11:29 02/25/19 08:05 Dextrose (Dextrose 50%) 25 ml Q30M PRN IV Hypoglycemia 02/14/19 08:30 03/10/19 08:29 Dextrose (Dextrose 50%) 50 ml Q30M PRN IV Hypoglycemia 02/14/19 18:30 03/10/19 18:29 Docusate Sodium (Colace) 100 mg THREE TIMES A DAY ORAL 02/23/19 13:00 03/25/19 12:59 02/25/19 08:05 Gabapentin (Neurontin) 300 mg BID ORAL 02/22/19 18:00 03/24/19 17:59 02/25/19 08:05 Hydralazine HCl (Apresoline) 25 mg Q4H PRN ORAL bp over 160 syst 02/14/19 18:30 03/16/19 18:29 02/20/19 23:53 Metoprolol Tartrate (Lopressor) 25 mg Q12HR ORAL 02/14/19 21:00 03/16/19 20:59 02/25/19 08:05 Pantoprazole (Protonix) 40 mg BID ORAL 02/15/19 09:00 03/17/19 08:59 02/25/19 08:05 Polyethylene Glycol (Miralax) 17 gm BEDTIME ORAL 02/23/19 21:00 03/25/19 20:59 02/24/19 20:28 Potassium Chloride (K-Dur) 40 meq DAILY ORAL 02/16/19 10:00 03/18/19 09:59 02/25/19 08:05 Thiamine HCl (Vitamin B1) 100 mg DAILY ORAL 02/15/19 09:00 03/17/19 08:59 02/25/19 08:06 Last 24 Hour Vital Signs Date Time Temp Pulse Resp B/P (MAP) Pulse Ox O2 Delivery O2 Flow Rate FiO2 02/25/19 08:05 94 137/80 02/25/19 04:00 97.8 94 16 137/80 (99) 95 02/25/19 00:00 97.3 83 20 130/64 (86) 98 02/24/19 21:00 Room Air 02/24/19 20:28 99 146/80 02/24/19 20:00 98.3 99 16 146/80 (102) 96 02/24/19 15:50 98.3 98 18 140/82 (101) 98 02/24/19 12:00 98.6 100 18 145/79 (101) 99 02/24/19 09:16 100 143/85 02/24/19 09:00 Room Air 02/24/19 08:00 98.2 98 20 139/84 (102) 98 02/24/19 07:53 100 19 98 Room Air 21 02/24/19 04:00 98.6 101 19 143/85 (104) 99 02/24/19 00:03 96.0 89 18 140/74 (96) 98 02/23/19 20:59 99 132/80 02/23/19 20:12 Room Air 02/23/19 20:02 99 17 98 Room Air 21 02/23/19 19:52 99.5 107 19 132/80 (97) 97 02/23/19 16:00 99.2 94 20 158/96 (116) 95 02/23/19 12:00 98.3 83 20 149/79 (102) 95 Intake and Output 02/24/19 02/25/19 19:00 07:00 Intake Total 850 ml Output Total 550 ml Balance 850 ml -550 ml Intake Oral 850 ml Output Urine Total 550 ml # Voids 5 # Bowel Movements 1 Labs Test 02/24/19 05:30 02/25/19 04:40 White Blood Count 6.9 K/UL (4.8-10.8) 7.3 K/UL (4.8-10.8) Red Blood Count 4.42 M/UL (4.70-6.10) 4.45 M/UL (4.70-6.10) Hemoglobin 13.8 G/DL (14.2-18.0) 14.1 G/DL (14.2-18.0) Hematocrit 41.1 % (42.0-52.0) 41.8 % (42.0-52.0) Mean Corpuscular Volume 93 FL (80-99) 94 FL (80-99) Mean Corpuscular Hemoglobin 31.2 PG (27.0-31.0) 31.6 PG (27.0-31.0) Mean Corpuscular Hemoglobin Concent 33.5 G/DL (32.0-36.0) 33.7 G/DL (32.0-36.0) Red Cell Distribution Width 14.9 % (11.6-14.8) 14.7 % (11.6-14.8) Platelet Count 428 K/UL (150-450) 428 K/UL (150-450) Mean Platelet Volume 4.7 FL (6.5-10.1) 4.9 FL (6.5-10.1) Neutrophils (%) (Auto) 59.5 % (45.0-75.0) 55.8 % (45.0-75.0) Lymphocytes (%) (Auto) 27.5 % (20.0-45.0) 29.6 % (20.0-45.0) Monocytes (%) (Auto) 10.2 % (1.0-10.0) 10.9 % (1.0-10.0) Eosinophils (%) (Auto) 1.7 % (0.0-3.0) 2.3 % (0.0-3.0) Basophils (%) (Auto) 1.2 % (0.0-2.0) 1.3 % (0.0-2.0) Height (Feet): 5 Height (Inches): 5.00 Weight (Pounds): 144 Objective General Appearance: no acute distress HEENT: mucous membranes moist Respiratory/Chest: lungs clear, 2l nc Cardiovascular: normal rate Abdomen: soft, non tender Extremities: no edema Neurologic/Psychiatric: alert, responsive Hal Smith MD Feb 25, 2019 09:15
--- NOTE | 2019-02-25 10:18 | Surgery Progress Note ---
Surgery Progress Note Subjective Additional Comments No acute events. Exam stable. Labs noted. Objective Last 24 Hour Vital Signs Date Time Temp Pulse Resp B/P (MAP) Pulse Ox O2 Delivery O2 Flow Rate FiO2 02/25/19 09:00 Room Air 02/25/19 08:05 94 137/80 02/25/19 08:00 97.3 104 18 159/90 (113) 95 02/25/19 04:00 97.8 94 16 137/80 (99) 95 02/25/19 00:00 97.3 83 20 130/64 (86) 98 02/24/19 21:00 Room Air 02/24/19 20:28 99 146/80 02/24/19 20:00 98.3 99 16 146/80 (102) 96 02/24/19 15:50 98.3 98 18 140/82 (101) 98 02/24/19 12:00 98.6 100 18 145/79 (101) 99 I&O Intake and Output 02/24/19 02/25/19 19:00 07:00 Intake Total 850 ml Output Total 550 ml Balance 850 ml -550 ml Intake Oral 850 ml Output Urine Total 550 ml # Voids 5 # Bowel Movements 1 Cardiovascular: RSR Respiratory: clear Abdomen: soft, non-tender, present bowel sounds, non-distended Extremities: no tenderness, no cyanosis Laboratory Tests Test 02/25/19 04:40 White Blood Count 7.3 K/UL (4.8-10.8) Red Blood Count 4.45 M/UL (4.70-6.10) L Hemoglobin 14.1 G/DL (14.2-18.0) L Hematocrit 41.8 % (42.0-52.0) L Mean Corpuscular Volume 94 FL (80-99) Mean Corpuscular Hemoglobin 31.6 PG (27.0-31.0) H Mean Corpuscular Hemoglobin Concent 33.7 G/DL (32.0-36.0) Red Cell Distribution Width 14.7 % (11.6-14.8) Platelet Count 428 K/UL (150-450) Mean Platelet Volume 4.9 FL (6.5-10.1) L Neutrophils (%) (Auto) 55.8 % (45.0-75.0) Lymphocytes (%) (Auto) 29.6 % (20.0-45.0) Monocytes (%) (Auto) 10.9 % (1.0-10.0) H Eosinophils (%) (Auto) 2.3 % (0.0-3.0) Basophils (%) (Auto) 1.3 % (0.0-2.0) Plan Problems: (1) GIB (gastrointestinal bleeding) Assessment & Plan: 69-year-old male with acute gastrointestinal hemorrhage secondary to large duodenal ulcer. Patient had endoscopy with hemostasis just now identified a large ulcer with potential to rebleed. Need to control patient's hypertension and allow for even permissive hypotension if necessary h/h stable overall doing better labs stable now exam stable Will follow and be available in case patient rebleeds at which time he will require an exploration thank you for allowing me to participate in patient's care d/c planning pending placement will follow with recommendations Adelso Baumann Feb 25, 2019 10:18
--- NOTE | 2019-02-25 10:24 | General Progress Note ---
Assessment/Plan Problem List: (1) DKA (diabetic ketoacidoses) ICD Codes: E11.10 - Type 2 diabetes mellitus with ketoacidosis without coma SNOMED: 115391036, 14921716 Qualifiers: Qualified Codes: E13.10 - Other specified diabetes mellitus with ketoacidosis without coma (2) GIB (gastrointestinal bleeding) ICD Codes: K92.2 - Gastrointestinal hemorrhage, unspecified SNOMED: 93493524 (3) ARF (acute renal failure) ICD Codes: N17.9 - Acute kidney failure, unspecified SNOMED: 71006007 Qualifiers: Qualified Codes: N17.9 - Acute kidney failure, unspecified (4) Sinus tachycardia ICD Codes: R00.0 - Tachycardia, unspecified SNOMED: 09229605 (5) Sepsis ICD Codes: A41.9 - Sepsis, unspecified organism SNOMED: 53134054, 65564489 Qualifiers: Qualified Codes: A41.9 - Sepsis, unspecified organism; R65.20 - Severe sepsis without septic shock; N17.9 - Acute kidney failure, unspecified (6) Lactic acidosis ICD Codes: E87.2 - Acidosis SNOMED: 09183335, 72535092 (7) Anemia ICD Codes: D64.9 - Anemia, unspecified SNOMED: 158903157 (8) Esophageal varices ICD Codes: I85.00 - Esophageal varices without bleeding SNOMED: 63778405 (9) Acute respiratory failure ICD Codes: J96.00 - Acute respiratory failure, unspecified whether with hypoxia or hypercapnia SNOMED: 13058905 (10) Dehydration ICD Codes: E86.0 - Dehydration SNOMED: 08728114, 24654949 Status: stable, progressing Assessment/Plan: bp bs control gi f/u cbc bmp am Subjective Constitutional: Reports: weakness Allergies: Coded Allergies: No Known Allergies (Unverified , 02/07/19) All Systems: reviewed and negative except above Subjective sleepy calm Objective Last 24 Hour Vital Signs Date Time Temp Pulse Resp B/P (MAP) Pulse Ox O2 Delivery O2 Flow Rate FiO2 02/25/19 09:00 Room Air 02/25/19 08:05 94 137/80 02/25/19 08:00 97.3 104 18 159/90 (113) 95 02/25/19 04:00 97.8 94 16 137/80 (99) 95 02/25/19 00:00 97.3 83 20 130/64 (86) 98 02/24/19 21:00 Room Air 02/24/19 20:28 99 146/80 02/24/19 20:00 98.3 99 16 146/80 (102) 96 02/24/19 15:50 98.3 98 18 140/82 (101) 98 02/24/19 12:00 98.6 100 18 145/79 (101) 99 Intake and Output 02/24/19 02/25/19 19:00 07:00 Intake Total 850 ml Output Total 550 ml Balance 850 ml -550 ml Intake Oral 850 ml Output Urine Total 550 ml # Voids 5 # Bowel Movements 1 Laboratory Tests 02/25/19 04:40: White Blood Count 7.3, Red Blood Count 4.45L, Hemoglobin 14.1L, Hematocrit 41.8L , Mean Corpuscular Volume 94, Mean Corpuscular Hemoglobin 31.6H, Mean Corpuscular Hemoglobin Concent 33.7, Red Cell Distribution Width 14.7, Platelet Count 428, Mean Platelet Volume 4.9L, Neutrophils (%) (Auto) 55.8, Lymphocytes ( %) (Auto) 29.6, Monocytes (%) (Auto) 10.9H, Eosinophils (%) (Auto) 2.3, Basophils (%) (Auto) 1.3 Height (Feet): 5 Height (Inches): 5.00 Weight (Pounds): 144 General Appearance: lethargic EENT: normal ENT inspection Neck: normal alignment Cardiovascular: normal peripheral pulses, normal rate, regular rhythm Respiratory/Chest: chest wall non-tender, lungs clear, normal breath sounds Abdomen: normal bowel sounds, non tender, soft Extremities: normal inspection Edema: no edema noted Arm (L), no edema noted Arm (R), no edema noted Leg (L), no edema noted Leg (R), no edema noted Pedal (L), no edema noted Pedal (R), no edema noted Generalized Neurologic: motor weakness Skin: normal pigmentation, warm/dry Maximilian Frias DO Feb 25, 2019 10:24
[2019-02-25 11:50] VITALS: BP 131/83
--- NOTE | 2019-02-25 15:07 | Cardiac Electrophysiology PN ---
Assessment/Plan Assessment/Plan 1. S/P sinus tachycardia due to DKA and GI bleed. No evidence of atrial fibrillation or SVT. EF 60%. 2. Hypertension. On Lopressor 25 bid and prn Hydralazine 3. S/P Respiratory failure, Extubated 4. Acute GI bleed, endoscopy by Dr. Conn showed duodenal ulcer. S/P 4 units of blood transfusion. No indication for surgery at this time per Dr. Baumann 5. Diabetic ketoacidosis, on insulin 6. Homelessness DW RN Subjective Subjective No events. Placement pending Objective Last 24 Hour Vital Signs Date Time Temp Pulse Resp B/P (MAP) Pulse Ox O2 Delivery O2 Flow Rate FiO2 02/25/19 11:50 98.2 102 17 131/83 (99) 97 02/25/19 09:00 Room Air 02/25/19 08:05 94 137/80 02/25/19 08:00 97.3 104 18 159/90 (113) 95 02/25/19 04:00 97.8 94 16 137/80 (99) 95 02/25/19 00:00 97.3 83 20 130/64 (86) 98 02/24/19 21:00 Room Air 02/24/19 20:28 99 146/80 02/24/19 20:00 98.3 99 16 146/80 (102) 96 02/24/19 15:50 98.3 98 18 140/82 (101) 98 Intake and Output 02/24/19 02/25/19 18:59 06:59 Intake Total 850 ml Output Total 550 ml Balance 850 ml -550 ml Intake Oral 850 ml Output Urine Total 550 ml # Voids 5 # Bowel Movements 1 Laboratory Tests Test 02/25/19 04:40 White Blood Count 7.3 K/UL (4.8-10.8) Red Blood Count 4.45 M/UL (4.70-6.10) L Hemoglobin 14.1 G/DL (14.2-18.0) L Hematocrit 41.8 % (42.0-52.0) L Mean Corpuscular Volume 94 FL (80-99) Mean Corpuscular Hemoglobin 31.6 PG (27.0-31.0) H Mean Corpuscular Hemoglobin Concent 33.7 G/DL (32.0-36.0) Red Cell Distribution Width 14.7 % (11.6-14.8) Platelet Count 428 K/UL (150-450) Mean Platelet Volume 4.9 FL (6.5-10.1) L Neutrophils (%) (Auto) 55.8 % (45.0-75.0) Lymphocytes (%) (Auto) 29.6 % (20.0-45.0) Monocytes (%) (Auto) 10.9 % (1.0-10.0) H Eosinophils (%) (Auto) 2.3 % (0.0-3.0) Basophils (%) (Auto) 1.3 % (0.0-2.0) Objective HEAD AND NECK: No JVD. LUNGS: Decreased breath sounds. CARDIOVASCULAR: Nl S1 and S2 with no gallop. ABDOMEN: Soft. EXTREMITIES: No pitting edema Matthew Kent MD Feb 25, 2019 15:07
[2019-02-25 16:00] VITALS: BP 130/69
--- NOTE | 2019-02-25 19:35 | NUR ---
HAND-OFF: Report given to Sherrie ALEGRIA.
--- NOTE | 2019-02-25 19:39 | NUR ---
NURSE NOTES: Received pt sleeping in bed. Pt is on room air. IV site intact and patent. Pt didn't finish dinner. No acute distress noted at this time. Bed locked, lowest position, alarm on, side rails up x 2, call light within reach. Will continue to monitor.
[2019-02-25 20:00] VITALS: BP 125/78
[2019-02-25] MEDS: Miralax 17gm pkt ORAL SCH (21:29)
[2019-02-26] VITALS: BP 153/69
[2019-02-26 04:00] VITALS: BP 143/74
--- NOTE | 2019-02-26 07:35 | NUR ---
HAND-OFF: Report given to RAJI Lobo.
[2019-02-26 07:41] LABS: BASOPHILS % (AUTO) 1.1 % (0.0-2.0); EOSINOPHILS % (AUTO) 2.8 % (0.0-3.0); HEMATOCRIT 42.6 % (42.0-52.0); HEMOGLOBIN 14.3 G/DL (14.2-18.0); LYMPHOCYTES % (AUTO) 31.6 % (20.0-45.0); MEAN CORPUSCULAR VOLUME 93 FL (80-99); MONOCYTES % (AUTO) 11.1 % (1.0-10.0); NEUTROPHILS % (AUTO) 53.4 % (45.0-75.0); PLATELET COUNT 389 K/UL (150-450); RED BLOOD COUNT 4.56 M/UL (4.70-6.10); RED CELL DISTRIBUTION WIDTH 14.5 % (11.6-14.8); WHITE BLOOD COUNT 6.6 K/UL (4.8-10.8)
[2019-02-26 07:45] LABS: ANION GAP 6 mmol/L (5-15); BLOOD UREA NITROGEN 13 mg/dL (7-18); CARBON DIOXIDE 30 MMOL/L (21-32); CHLORIDE 104 MMOL/L (98-107); CREATININE 0.6 MG/DL (0.55-1.30); POTASSIUM 4.1 MMOL/L (3.5-5.1); SODIUM 140 MMOL/L (136-145)
[2019-02-26 08:00] VITALS: BP 138/80
--- NOTE | 2019-02-26 08:15 | NUR ---
NURSE NOTES: pt alert and talking. Pt in bed resting. Pt shows no signs of cardiac or respiratory distress at this time. Bed is locked and lowest position. Call light is within reach. will continue to follow plan of care.
[2019-02-26] MEDS: Docusate 100mg cap ORAL SCH ×3 (09:54→17:23)
[2019-02-26] MEDS: Clarithromycin 500mg tab ORAL SCH ×2 (09:55→20:59)
[2019-02-26] MEDS: Thiamine 100mg tab ORAL SCH (09:55)
[2019-02-26] MEDS: Metoprolol 25mg tab ORAL SCH ×2 (09:55→20:59)
--- NOTE | 2019-02-26 09:56 | Surgery Progress Note ---
Surgery Progress Note Subjective Additional Comments no acute events Objective Last 24 Hour Vital Signs Date Time Temp Pulse Resp B/P (MAP) Pulse Ox O2 Delivery O2 Flow Rate FiO2 02/26/19 09:55 89 138/80 02/26/19 08:00 97.4 89 19 138/80 (99) 100 02/26/19 04:00 97.9 88 20 143/74 (97) 99 02/26/19 00:00 98.1 84 19 153/69 (97) 98 02/25/19 21:29 95 125/78 02/25/19 21:00 Room Air 02/25/19 20:00 97.7 95 20 125/78 (94) 96 02/25/19 16:00 98.0 81 18 130/69 (89) 97 02/25/19 11:50 98.2 102 17 131/83 (99) 97 I&O Intake and Output 02/25/19 02/26/19 19:00 07:00 Output Total 250 ml Balance -250 ml Output Urine Total 250 ml # Voids 6 Cardiovascular: RSR Respiratory: clear Abdomen: soft, flat, non-tender, present bowel sounds, other, non-distended Extremities: no edema, no cyanosis Laboratory Tests Test 02/26/19 06:17 White Blood Count 6.6 K/UL (4.8-10.8) Red Blood Count 4.56 M/UL (4.70-6.10) L Hemoglobin 14.3 G/DL (14.2-18.0) Hematocrit 42.6 % (42.0-52.0) Mean Corpuscular Volume 93 FL (80-99) Mean Corpuscular Hemoglobin 31.4 PG (27.0-31.0) H Mean Corpuscular Hemoglobin Concent 33.7 G/DL (32.0-36.0) Red Cell Distribution Width 14.5 % (11.6-14.8) Platelet Count 389 K/UL (150-450) Mean Platelet Volume 4.9 FL (6.5-10.1) L Neutrophils (%) (Auto) 53.4 % (45.0-75.0) Lymphocytes (%) (Auto) 31.6 % (20.0-45.0) Monocytes (%) (Auto) 11.1 % (1.0-10.0) H Eosinophils (%) (Auto) 2.8 % (0.0-3.0) Basophils (%) (Auto) 1.1 % (0.0-2.0) Sodium Level 140 MMOL/L (136-145) Potassium Level 4.1 MMOL/L (3.5-5.1) Chloride Level 104 MMOL/L (98-107) Carbon Dioxide Level 30 MMOL/L (21-32) Anion Gap 6 mmol/L (5-15) Blood Urea Nitrogen 13 mg/dL (7-18) Creatinine 0.6 MG/DL (0.55-1.30) Estimat Glomerular Filtration Rate mL/min (>60) Glucose Level 113 MG/DL (74-106) H Calcium Level 9.0 MG/DL (8.5-10.1) Plan Problems: (1) GIB (gastrointestinal bleeding) Assessment & Plan: 69-year-old male with acute gastrointestinal hemorrhage secondary to large duodenal ulcer. Patient had endoscopy with hemostasis just now identified a large ulcer with potential to rebleed. Need to control patient's hypertension and allow for even permissive hypotension if necessary h/h stable overall doing better labs stable now exam stable Will follow and be available in case patient rebleeds at which time he will require an exploration thank you for allowing me to participate in patient's care d/c planning pending placement will follow with recommendations Adelso Baumann Feb 26, 2019 09:56
--- NOTE | 2019-02-26 10:20 | General Progress Note ---
Assessment/Plan Problem List: (1) DKA (diabetic ketoacidoses) ICD Codes: E11.10 - Type 2 diabetes mellitus with ketoacidosis without coma SNOMED: 653553608, 04033908 Qualifiers: Qualified Codes: E13.10 - Other specified diabetes mellitus with ketoacidosis without coma (2) GIB (gastrointestinal bleeding) ICD Codes: K92.2 - Gastrointestinal hemorrhage, unspecified SNOMED: 27363601 (3) ARF (acute renal failure) ICD Codes: N17.9 - Acute kidney failure, unspecified SNOMED: 10936914 Qualifiers: Qualified Codes: N17.9 - Acute kidney failure, unspecified (4) Sinus tachycardia ICD Codes: R00.0 - Tachycardia, unspecified SNOMED: 90247781 (5) Sepsis ICD Codes: A41.9 - Sepsis, unspecified organism SNOMED: 30421069, 14837566 Qualifiers: Qualified Codes: A41.9 - Sepsis, unspecified organism; R65.20 - Severe sepsis without septic shock; N17.9 - Acute kidney failure, unspecified (6) Lactic acidosis ICD Codes: E87.2 - Acidosis SNOMED: 74656297, 96162740 (7) Anemia ICD Codes: D64.9 - Anemia, unspecified SNOMED: 745459698 (8) Esophageal varices ICD Codes: I85.00 - Esophageal varices without bleeding SNOMED: 35852970 (9) Acute respiratory failure ICD Codes: J96.00 - Acute respiratory failure, unspecified whether with hypoxia or hypercapnia SNOMED: 34222456 (10) Dehydration ICD Codes: E86.0 - Dehydration SNOMED: 80407796, 57737968 Status: stable, progressing Assessment/Plan: bp bs control gi f/u cbc bmp am Subjective Constitutional: Reports: weakness Allergies: Coded Allergies: No Known Allergies (Unverified , 02/07/19) All Systems: reviewed and negative except above Subjective sleepy calm Objective Last 24 Hour Vital Signs Date Time Temp Pulse Resp B/P (MAP) Pulse Ox O2 Delivery O2 Flow Rate FiO2 02/26/19 09:55 89 138/80 02/26/19 08:00 97.4 89 19 138/80 (99) 100 02/26/19 04:00 97.9 88 20 143/74 (97) 99 02/26/19 00:00 98.1 84 19 153/69 (97) 98 02/25/19 21:29 95 125/78 02/25/19 21:00 Room Air 02/25/19 20:00 97.7 95 20 125/78 (94) 96 02/25/19 16:00 98.0 81 18 130/69 (89) 97 02/25/19 11:50 98.2 102 17 131/83 (99) 97 Intake and Output 02/25/19 02/26/19 19:00 07:00 Output Total 250 ml Balance -250 ml Output Urine Total 250 ml # Voids 6 Laboratory Tests 02/26/19 06:17: White Blood Count 6.6, Red Blood Count 4.56L, Hemoglobin 14.3, Hematocrit 42.6, Mean Corpuscular Volume 93, Mean Corpuscular Hemoglobin 31.4H, Mean Corpuscular Hemoglobin Concent 33.7, Red Cell Distribution Width 14.5, Platelet Count 389, Mean Platelet Volume 4.9L, Neutrophils (%) (Auto) 53.4, Lymphocytes (%) (Auto) 31.6, Monocytes (%) (Auto) 11.1H, Eosinophils (%) (Auto) 2.8, Basophils (%) ( Auto) 1.1, Sodium Level 140, Potassium Level 4.1, Chloride Level 104, Carbon Dioxide Level 30, Anion Gap 6, Blood Urea Nitrogen 13, Creatinine 0.6, Estimat Glomerular Filtration Rate , Glucose Level 113H, Calcium Level 9.0 Height (Feet): 5 Height (Inches): 5.00 Weight (Pounds): 144 General Appearance: lethargic EENT: normal ENT inspection Neck: normal alignment Cardiovascular: normal peripheral pulses, normal rate, regular rhythm Respiratory/Chest: chest wall non-tender, lungs clear, normal breath sounds Abdomen: normal bowel sounds, non tender, soft Extremities: normal inspection Edema: no edema noted Arm (L), no edema noted Arm (R), no edema noted Leg (L), no edema noted Leg (R), no edema noted Pedal (L), no edema noted Pedal (R), no edema noted Generalized Neurologic: motor weakness Skin: normal pigmentation, warm/dry Maximilian Frias DO Feb 26, 2019 10:20
[2019-02-26 12:00] VITALS: BP 132/75
--- NOTE | 2019-02-26 12:43 | Infectious Diseases Prog Note ---
Assessment/Plan Assessment/Plan IMPRESSION: Sepsis, resolved systemic inflammatory response syndrome, Leukocytosis GI bleeding Duodenal ulcer. DM, off insulin Lactic acidosis, Acute renal failure resolved Onychomycosis tinea pedis treated anemia, received blood transfusion, Elevated transaminase level. Acute respiratory failure resolved H. pylori infection Diabetic neuropathy RECOMMENDATION: Continue Amoxicillin, Biaxin & Protonix Waiting for placement Subjective ROS Limited/Unobtainable: Yes Constitutional: Denies: fever Allergies: Coded Allergies: No Known Allergies (Unverified , 02/07/19) Objective Vital Signs Last 24 Hour Vital Signs Date Time Temp Pulse Resp B/P (MAP) Pulse Ox O2 Delivery O2 Flow Rate FiO2 02/26/19 09:55 89 138/80 02/26/19 08:00 97.4 89 19 138/80 (99) 100 02/26/19 04:00 97.9 88 20 143/74 (97) 99 02/26/19 00:00 98.1 84 19 153/69 (97) 98 02/25/19 21:29 95 125/78 02/25/19 21:00 Room Air 02/25/19 20:00 97.7 95 20 125/78 (94) 96 02/25/19 16:00 98.0 81 18 130/69 (89) 97 Height (Feet): 5 Height (Inches): 5.00 Weight (Pounds): 144 General Appearance: no acute distress HEENT: mucous membranes moist Respiratory/Chest: lungs clear Cardiovascular: normal peripheral pulses Abdomen: soft, non tender Extremities: no edema Neurologic/Psychiatric: other - sleeping Laboratory Tests Test 02/26/19 06:17 White Blood Count 6.6 K/UL (4.8-10.8) Red Blood Count 4.56 M/UL (4.70-6.10) L Hemoglobin 14.3 G/DL (14.2-18.0) Hematocrit 42.6 % (42.0-52.0) Mean Corpuscular Volume 93 FL (80-99) Mean Corpuscular Hemoglobin 31.4 PG (27.0-31.0) H Mean Corpuscular Hemoglobin Concent 33.7 G/DL (32.0-36.0) Red Cell Distribution Width 14.5 % (11.6-14.8) Platelet Count 389 K/UL (150-450) Mean Platelet Volume 4.9 FL (6.5-10.1) L Neutrophils (%) (Auto) 53.4 % (45.0-75.0) Lymphocytes (%) (Auto) 31.6 % (20.0-45.0) Monocytes (%) (Auto) 11.1 % (1.0-10.0) H Eosinophils (%) (Auto) 2.8 % (0.0-3.0) Basophils (%) (Auto) 1.1 % (0.0-2.0) Sodium Level 140 MMOL/L (136-145) Potassium Level 4.1 MMOL/L (3.5-5.1) Chloride Level 104 MMOL/L (98-107) Carbon Dioxide Level 30 MMOL/L (21-32) Anion Gap 6 mmol/L (5-15) Blood Urea Nitrogen 13 mg/dL (7-18) Creatinine 0.6 MG/DL (0.55-1.30) Estimat Glomerular Filtration Rate mL/min (>60) Glucose Level 113 MG/DL (74-106) H Calcium Level 9.0 MG/DL (8.5-10.1) Current Medications Medications (Trade) Dose Ordered Sig/Manish Route PRN Reason Start Time Stop Time Status Last Admin Dose Admin Acetaminophen (Tylenol) 650 mg Q6H PRN ORAL Mild Pain/Temp > 100.5 02/14/19 18:30 03/10/19 18:29 02/21/19 13:21 Amoxicillin (Amoxil) 1,000 mg BID@0630,1630 ORAL 02/23/19 11:30 03/02/19 11:29 02/26/19 05:46 Clarithromycin (Biaxin) 500 mg EVERY 12 HOURS ORAL 02/23/19 11:30 03/02/19 11:29 02/26/19 09:55 Dextrose (Dextrose 50%) 25 ml Q30M PRN IV Hypoglycemia 02/14/19 08:30 03/10/19 08:29 Dextrose (Dextrose 50%) 50 ml Q30M PRN IV Hypoglycemia 02/14/19 18:30 03/10/19 18:29 Docusate Sodium (Colace) 100 mg THREE TIMES A DAY ORAL 02/23/19 13:00 03/25/19 12:59 02/26/19 09:54 Gabapentin (Neurontin) 300 mg BID ORAL 02/22/19 18:00 03/24/19 17:59 02/26/19 09:55 Hydralazine HCl (Apresoline) 25 mg Q4H PRN ORAL bp over 160 syst 02/14/19 18:30 03/16/19 18:29 02/20/19 23:53 Metoprolol Tartrate (Lopressor) 25 mg Q12HR ORAL 02/14/19 21:00 03/16/19 20:59 02/26/19 09:55 Pantoprazole (Protonix) 40 mg BID ORAL 02/15/19 09:00 03/17/19 08:59 02/26/19 09:55 Polyethylene Glycol (Miralax) 17 gm BEDTIME ORAL 02/23/19 21:00 03/25/19 20:59 02/25/19 21:29 Potassium Chloride (K-Dur) 40 meq DAILY ORAL 02/16/19 10:00 03/18/19 09:59 02/26/19 09:54 Thiamine HCl (Vitamin B1) 100 mg DAILY ORAL 02/15/19 09:00 03/17/19 08:59 02/26/19 09:55 Fazal Basilio MD Feb 26, 2019 12:43
[2019-02-26 16:00] VITALS: BP 128/76
--- NOTE | 2019-02-26 18:56 | Cardiac Electrophysiology PN ---
Assessment/Plan Assessment/Plan 1. S/P sinus tachycardia due to DKA and GI bleed. Resolved No evidence of atrial fibrillation or SVT. EF 60%. 2. Hypertension. On Lopressor 25 bid 3. S/P Respiratory failure, Extubated 4. Acute GI bleed, endoscopy by Dr. Conn showed duodenal ulcer. S/P 4 units of blood transfusion. No indication for surgery at this time per Dr. Baumann 5. S/P Diabetic ketoacidosis, on insulin 6. Homelessness DW RN Subjective Subjective Had a fall but no injury reported. Placement pending Objective Last 24 Hour Vital Signs Date Time Temp Pulse Resp B/P (MAP) Pulse Ox O2 Delivery O2 Flow Rate FiO2 02/26/19 16:00 97.8 89 18 128/76 (93) 96 02/26/19 12:00 98.1 77 18 132/75 (94) 99 02/26/19 09:55 89 138/80 02/26/19 09:00 Room Air 02/26/19 08:00 97.4 89 19 138/80 (99) 100 02/26/19 04:00 97.9 88 20 143/74 (97) 99 02/26/19 00:00 98.1 84 19 153/69 (97) 98 02/25/19 21:29 95 125/78 02/25/19 21:00 Room Air 02/25/19 20:00 97.7 95 20 125/78 (94) 96 Intake and Output 02/25/19 02/26/19 18:59 06:59 Output Total 250 ml Balance -250 ml Output Urine Total 250 ml # Voids 6 Laboratory Tests Test 02/26/19 06:17 White Blood Count 6.6 K/UL (4.8-10.8) Red Blood Count 4.56 M/UL (4.70-6.10) L Hemoglobin 14.3 G/DL (14.2-18.0) Hematocrit 42.6 % (42.0-52.0) Mean Corpuscular Volume 93 FL (80-99) Mean Corpuscular Hemoglobin 31.4 PG (27.0-31.0) H Mean Corpuscular Hemoglobin Concent 33.7 G/DL (32.0-36.0) Red Cell Distribution Width 14.5 % (11.6-14.8) Platelet Count 389 K/UL (150-450) Mean Platelet Volume 4.9 FL (6.5-10.1) L Neutrophils (%) (Auto) 53.4 % (45.0-75.0) Lymphocytes (%) (Auto) 31.6 % (20.0-45.0) Monocytes (%) (Auto) 11.1 % (1.0-10.0) H Eosinophils (%) (Auto) 2.8 % (0.0-3.0) Basophils (%) (Auto) 1.1 % (0.0-2.0) Sodium Level 140 MMOL/L (136-145) Potassium Level 4.1 MMOL/L (3.5-5.1) Chloride Level 104 MMOL/L (98-107) Carbon Dioxide Level 30 MMOL/L (21-32) Anion Gap 6 mmol/L (5-15) Blood Urea Nitrogen 13 mg/dL (7-18) Creatinine 0.6 MG/DL (0.55-1.30) Estimat Glomerular Filtration Rate mL/min (>60) Glucose Level 113 MG/DL (74-106) H Calcium Level 9.0 MG/DL (8.5-10.1) Objective HEAD AND NECK: No JVD. LUNGS: Decreased breath sounds. CARDIOVASCULAR: Nl S1 and S2 with no gallop. ABDOMEN: Soft. EXTREMITIES: No pitting edema Matthew Kent MD Feb 26, 2019 18:56
--- NOTE | 2019-02-26 19:17 | NUR ---
NURSE NOTES: Received report from RAJI Lobo. Pt AAO x 4. Pt is in stable condition, on room air. IV site intact and patent. No acute distress noted at this time. Bed locked, lowest position, alarm on, side rails up x 2, call light within reach. Will continue to monitor.
--- NOTE | 2019-02-26 19:35 | NUR ---
HAND-OFF: Report given to Egan/RN. pt in stable condition.
[2019-02-26 20:00] VITALS: BP 142/78
[2019-02-26] MEDS: Miralax 17gm pkt ORAL SCH (20:59)
[2019-02-27] VITALS (7 sets, daily range): BP systolic 134–164; BP diastolic 71–84
[2019-02-27 07:15] LABS: BASOPHILS % (AUTO) 1.4 % (0.0-2.0); EOSINOPHILS % (AUTO) 3.2 % (0.0-3.0); HEMATOCRIT 42.3 % (42.0-52.0); HEMOGLOBIN 14.1 G/DL (14.2-18.0); LYMPHOCYTES % (AUTO) 29.5 % (20.0-45.0); MEAN CORPUSCULAR VOLUME 94 FL (80-99); MONOCYTES % (AUTO) 9.5 % (1.0-10.0); NEUTROPHILS % (AUTO) 56.4 % (45.0-75.0); PLATELET COUNT 374 K/UL (150-450); RED BLOOD COUNT 4.48 M/UL (4.70-6.10); RED CELL DISTRIBUTION WIDTH 14.9 % (11.6-14.8)
--- NOTE | 2019-02-27 07:15 | NUR ---
HAND-OFF: Report given to RAJI Perales.
[2019-02-27 07:22] LABS: ANION GAP 3 mmol/L (5-15); BLOOD UREA NITROGEN 13 mg/dL (7-18); CALCIUM 9.1 MG/DL (8.5-10.1); CARBON DIOXIDE 33 MMOL/L (21-32); CHLORIDE 105 MMOL/L (98-107); CREATININE 0.8 MG/DL (0.55-1.30); SODIUM 141 MMOL/L (136-145)
--- NOTE | 2019-02-27 07:30 | NUR ---
nurse noted received patient in bed, patient awake, alert, oriented x4, no sign of distress, HL patent, on fall precaution, encouraged to get out of bed with assist/turb q2h for comfort and good circulation, Bed locked, lowest position, alarm on, side rails up x 3. instructed patient to use call light when pt needs to help.verbalized understanding, Will continue to monitor. marie perez
[2019-02-27] MEDS: Thiamine 100mg tab ORAL SCH (08:17)
[2019-02-27] MEDS: Docusate 100mg cap ORAL SCH ×3 (08:17→17:12)
[2019-02-27] MEDS: Metoprolol 25mg tab ORAL SCH ×2 (08:18→20:14)
[2019-02-27] MEDS: Clarithromycin 500mg tab ORAL SCH ×2 (08:18→20:14)
--- NOTE | 2019-02-27 09:44 | Nephrology Progress Note ---
Assessment/Plan Problem List: (1) ARF (acute renal failure) (2) Dehydration (3) Acute respiratory failure (4) Esophageal varices (5) GIB (gastrointestinal bleeding) Assessment Acute renal failure , Cr lower now intubated Dehydration Hyperglycemia high Lactate level esophageal bleed GI bleed . Plan tolerating diet- switch meds to po as possible- in med surg K and Phos and mag supplement as needed per GI- Monitor lytes and renal parameters PT Subjective ROS Limited/Unobtainable: No Objective Objective Last 24 Hour Vital Signs Date Time Temp Pulse Resp B/P (MAP) Pulse Ox O2 Delivery O2 Flow Rate FiO2 02/27/19 08:48 Room Air 02/27/19 08:18 88 142/79 02/27/19 08:00 98.5 88 17 142/79 (100) 97 02/27/19 04:00 98.1 65 18 150/71 (97) 97 02/27/19 00:00 97.4 81 18 134/72 (92) 97 02/26/19 21:00 Room Air 02/26/19 20:59 83 142/78 02/26/19 20:00 97.8 83 20 142/78 (99) 96 02/26/19 16:00 97.8 89 18 128/76 (93) 96 02/26/19 12:00 98.1 77 18 132/75 (94) 99 02/26/19 09:55 89 138/80 Intake and Output 02/26/19 02/27/19 19:00 07:00 Intake Total 280 ml Output Total 500 ml Balance 280 ml -500 ml Intake Oral 280 ml Output Urine Total 500 ml Laboratory Tests 02/27/19 06:30: White Blood Count 8.0, Red Blood Count 4.48L, Hemoglobin 14.1L, Hematocrit 42.3 , Mean Corpuscular Volume 94, Mean Corpuscular Hemoglobin 31.4H, Mean Corpuscular Hemoglobin Concent 33.3, Red Cell Distribution Width 14.9H, Platelet Count 374, Mean Platelet Volume 4.8L, Neutrophils (%) (Auto) 56.4, Lymphocytes (%) (Auto) 29.5, Monocytes (%) (Auto) 9.5, Eosinophils (%) (Auto) 3.2H, Basophils (%) (Auto) 1.4, Sodium Level 141, Potassium Level 5.0, Chloride Level 105, Carbon Dioxide Level 33H, Anion Gap 3L, Blood Urea Nitrogen 13, Creatinine 0.8, Estimat Glomerular Filtration Rate , Glucose Level 118H, Calcium Level 9.1 Height (Feet): 5 Height (Inches): 5.00 Weight (Pounds): 144 General Appearance: no apparent distress Objective no change Arturo Cruz MD Feb 27, 2019 09:44
--- NOTE | 2019-02-27 11:25 | Infectious Diseases Prog Note ---
Assessment/Plan Assessment/Plan IMPRESSION: Sepsis, resolved systemic inflammatory response syndrome, Leukocytosis GI bleeding Duodenal ulcer. DM, off insulin Lactic acidosis, Acute renal failure resolved Onychomycosis tinea pedis treated anemia, received blood transfusion, Elevated transaminase level. Acute respiratory failure resolved H. pylori infection Diabetic neuropathy RECOMMENDATION: Continue Amoxicillin, Biaxin & Protonix Waiting for placement Subjective ROS Limited/Unobtainable: Yes Musculoskeletal: Reports: pain, other - in left foot Allergies: Coded Allergies: No Known Allergies (Unverified , 02/07/19) Objective Vital Signs Last 24 Hour Vital Signs Date Time Temp Pulse Resp B/P (MAP) Pulse Ox O2 Delivery O2 Flow Rate FiO2 02/27/19 08:48 Room Air 02/27/19 08:18 88 142/79 02/27/19 08:00 98.5 88 17 142/79 (100) 97 02/27/19 04:00 98.1 65 18 150/71 (97) 97 02/27/19 00:00 97.4 81 18 134/72 (92) 97 02/26/19 21:00 Room Air 02/26/19 20:59 83 142/78 02/26/19 20:00 97.8 83 20 142/78 (99) 96 02/26/19 16:00 97.8 89 18 128/76 (93) 96 02/26/19 12:00 98.1 77 18 132/75 (94) 99 Height (Feet): 5 Height (Inches): 5.00 Weight (Pounds): 144 HEENT: mucous membranes moist Respiratory/Chest: lungs clear Cardiovascular: normal rate Abdomen: soft, non tender Extremities: no edema Neurologic/Psychiatric: alert, responsive Laboratory Tests Test 02/27/19 06:30 White Blood Count 8.0 K/UL (4.8-10.8) Red Blood Count 4.48 M/UL (4.70-6.10) L Hemoglobin 14.1 G/DL (14.2-18.0) L Hematocrit 42.3 % (42.0-52.0) Mean Corpuscular Volume 94 FL (80-99) Mean Corpuscular Hemoglobin 31.4 PG (27.0-31.0) H Mean Corpuscular Hemoglobin Concent 33.3 G/DL (32.0-36.0) Red Cell Distribution Width 14.9 % (11.6-14.8) H Platelet Count 374 K/UL (150-450) Mean Platelet Volume 4.8 FL (6.5-10.1) L Neutrophils (%) (Auto) 56.4 % (45.0-75.0) Lymphocytes (%) (Auto) 29.5 % (20.0-45.0) Monocytes (%) (Auto) 9.5 % (1.0-10.0) Eosinophils (%) (Auto) 3.2 % (0.0-3.0) H Basophils (%) (Auto) 1.4 % (0.0-2.0) Sodium Level 141 MMOL/L (136-145) Potassium Level 5.0 MMOL/L (3.5-5.1) Chloride Level 105 MMOL/L (98-107) Carbon Dioxide Level 33 MMOL/L (21-32) H Anion Gap 3 mmol/L (5-15) L Blood Urea Nitrogen 13 mg/dL (7-18) Creatinine 0.8 MG/DL (0.55-1.30) Estimat Glomerular Filtration Rate mL/min (>60) Glucose Level 118 MG/DL (74-106) H Calcium Level 9.1 MG/DL (8.5-10.1) Current Medications Medications (Trade) Dose Ordered Sig/Manish Route PRN Reason Start Time Stop Time Status Last Admin Dose Admin Acetaminophen (Tylenol) 650 mg Q6H PRN ORAL Mild Pain/Temp > 100.5 02/14/19 18:30 03/10/19 18:29 02/21/19 13:21 Amoxicillin (Amoxil) 1,000 mg BID@0630,1630 ORAL 02/23/19 11:30 03/02/19 11:29 02/27/19 05:48 Clarithromycin (Biaxin) 500 mg EVERY 12 HOURS ORAL 02/23/19 11:30 03/02/19 11:29 02/27/19 08:18 Dextrose (Dextrose 50%) 25 ml Q30M PRN IV Hypoglycemia 02/14/19 08:30 03/10/19 08:29 Dextrose (Dextrose 50%) 50 ml Q30M PRN IV Hypoglycemia 02/14/19 18:30 03/10/19 18:29 Docusate Sodium (Colace) 100 mg THREE TIMES A DAY ORAL 02/23/19 13:00 03/25/19 12:59 02/27/19 08:17 Gabapentin (Neurontin) 300 mg BID ORAL 02/22/19 18:00 03/24/19 17:59 02/27/19 08:17 Hydralazine HCl (Apresoline) 25 mg Q4H PRN ORAL bp over 160 syst 02/14/19 18:30 03/16/19 18:29 02/20/19 23:53 Metoprolol Tartrate (Lopressor) 25 mg Q12HR ORAL 02/14/19 21:00 03/16/19 20:59 02/27/19 08:18 Pantoprazole (Protonix) 40 mg BID ORAL 02/15/19 09:00 03/17/19 08:59 02/27/19 08:18 Polyethylene Glycol (Miralax) 17 gm BEDTIME ORAL 02/23/19 21:00 03/25/19 20:59 02/26/19 20:59 Thiamine HCl (Vitamin B1) 100 mg DAILY ORAL 02/15/19 09:00 03/17/19 08:59 02/27/19 08:17 Fazal Basilio MD Feb 27, 2019 11:25
--- NOTE | 2019-02-27 11:49 | Surgery Progress Note ---
Surgery Progress Note Subjective Additional Comments opal cute events comfortable stable no complaints Objective Last 24 Hour Vital Signs Date Time Temp Pulse Resp B/P (MAP) Pulse Ox O2 Delivery O2 Flow Rate FiO2 02/27/19 08:48 Room Air 02/27/19 08:18 88 142/79 02/27/19 08:00 98.5 88 17 142/79 (100) 97 02/27/19 04:00 98.1 65 18 150/71 (97) 97 02/27/19 00:00 97.4 81 18 134/72 (92) 97 02/26/19 21:00 Room Air 02/26/19 20:59 83 142/78 02/26/19 20:00 97.8 83 20 142/78 (99) 96 02/26/19 16:00 97.8 89 18 128/76 (93) 96 02/26/19 12:00 98.1 77 18 132/75 (94) 99 I&O Intake and Output 02/26/19 02/27/19 19:00 07:00 Intake Total 280 ml Output Total 500 ml Balance 280 ml -500 ml Intake Oral 280 ml Output Urine Total 500 ml Cardiovascular: RSR Respiratory: clear Abdomen: soft, non-tender, present bowel sounds Extremities: no edema, no tenderness, no cyanosis Laboratory Tests Test 02/27/19 06:30 White Blood Count 8.0 K/UL (4.8-10.8) Red Blood Count 4.48 M/UL (4.70-6.10) L Hemoglobin 14.1 G/DL (14.2-18.0) L Hematocrit 42.3 % (42.0-52.0) Mean Corpuscular Volume 94 FL (80-99) Mean Corpuscular Hemoglobin 31.4 PG (27.0-31.0) H Mean Corpuscular Hemoglobin Concent 33.3 G/DL (32.0-36.0) Red Cell Distribution Width 14.9 % (11.6-14.8) H Platelet Count 374 K/UL (150-450) Mean Platelet Volume 4.8 FL (6.5-10.1) L Neutrophils (%) (Auto) 56.4 % (45.0-75.0) Lymphocytes (%) (Auto) 29.5 % (20.0-45.0) Monocytes (%) (Auto) 9.5 % (1.0-10.0) Eosinophils (%) (Auto) 3.2 % (0.0-3.0) H Basophils (%) (Auto) 1.4 % (0.0-2.0) Sodium Level 141 MMOL/L (136-145) Potassium Level 5.0 MMOL/L (3.5-5.1) Chloride Level 105 MMOL/L (98-107) Carbon Dioxide Level 33 MMOL/L (21-32) H Anion Gap 3 mmol/L (5-15) L Blood Urea Nitrogen 13 mg/dL (7-18) Creatinine 0.8 MG/DL (0.55-1.30) Estimat Glomerular Filtration Rate mL/min (>60) Glucose Level 118 MG/DL (74-106) H Calcium Level 9.1 MG/DL (8.5-10.1) Plan Problems: (1) GIB (gastrointestinal bleeding) Assessment & Plan: 69-year-old male with acute gastrointestinal hemorrhage secondary to large duodenal ulcer. Patient had endoscopy with hemostasis just now identified a large ulcer with potential to rebleed. Need to control patient's hypertension and allow for even permissive hypotension if necessary h/h stable overall doing better labs stable now exam stable Will follow and be available in case patient rebleeds at which time he will require an exploration thank you for allowing me to participate in patient's care d/c planning pending placement will follow with recommendations Adelso Baumann Feb 27, 2019 11:49
--- NOTE | 2019-02-27 12:37 | Cardiac Electrophysiology PN ---
Assessment/Plan Assessment/Plan 1. S/P sinus tachycardia due to DKA and GI bleed. Resolved No evidence of atrial fibrillation or SVT. EF 60%. 2. Hypertension. On Lopressor 25 bid 3. S/P Respiratory failure, Extubated 4. Acute GI bleed, endoscopy by Dr. Conn showed duodenal ulcer. S/P 4 units of blood transfusion. No indication for surgery per Dr. Baumann 5. S/P Diabetic ketoacidosis, on insulin 6. Homelessness and uninsured Difficulty placement DW RN Subjective Subjective No CP or SOB. Placement pending as home less and uninsured. Objective Last 24 Hour Vital Signs Date Time Temp Pulse Resp B/P (MAP) Pulse Ox O2 Delivery O2 Flow Rate FiO2 02/27/19 12:19 152/79 (103) 02/27/19 12:00 98.5 81 17 164/84 (110) 97 02/27/19 08:48 Room Air 02/27/19 08:18 88 142/79 02/27/19 08:00 98.5 88 17 142/79 (100) 97 02/27/19 04:00 98.1 65 18 150/71 (97) 97 02/27/19 00:00 97.4 81 18 134/72 (92) 97 02/26/19 21:00 Room Air 02/26/19 20:59 83 142/78 02/26/19 20:00 97.8 83 20 142/78 (99) 96 02/26/19 16:00 97.8 89 18 128/76 (93) 96 Intake and Output 02/26/19 02/27/19 19:00 07:00 Intake Total 280 ml Output Total 500 ml Balance 280 ml -500 ml Intake Oral 280 ml Output Urine Total 500 ml Laboratory Tests Test 02/27/19 06:30 White Blood Count 8.0 K/UL (4.8-10.8) Red Blood Count 4.48 M/UL (4.70-6.10) L Hemoglobin 14.1 G/DL (14.2-18.0) L Hematocrit 42.3 % (42.0-52.0) Mean Corpuscular Volume 94 FL (80-99) Mean Corpuscular Hemoglobin 31.4 PG (27.0-31.0) H Mean Corpuscular Hemoglobin Concent 33.3 G/DL (32.0-36.0) Red Cell Distribution Width 14.9 % (11.6-14.8) H Platelet Count 374 K/UL (150-450) Mean Platelet Volume 4.8 FL (6.5-10.1) L Neutrophils (%) (Auto) 56.4 % (45.0-75.0) Lymphocytes (%) (Auto) 29.5 % (20.0-45.0) Monocytes (%) (Auto) 9.5 % (1.0-10.0) Eosinophils (%) (Auto) 3.2 % (0.0-3.0) H Basophils (%) (Auto) 1.4 % (0.0-2.0) Sodium Level 141 MMOL/L (136-145) Potassium Level 5.0 MMOL/L (3.5-5.1) Chloride Level 105 MMOL/L (98-107) Carbon Dioxide Level 33 MMOL/L (21-32) H Anion Gap 3 mmol/L (5-15) L Blood Urea Nitrogen 13 mg/dL (7-18) Creatinine 0.8 MG/DL (0.55-1.30) Estimat Glomerular Filtration Rate mL/min (>60) Glucose Level 118 MG/DL (74-106) H Calcium Level 9.1 MG/DL (8.5-10.1) Objective HEAD AND NECK: No JVD. LUNGS: Decreased breath sounds. CARDIOVASCULAR: Nl S1 and S2 with no gallop. ABDOMEN: Soft. EXTREMITIES: No pitting edema Matthew Kent MD Feb 27, 2019 12:37
--- NOTE | 2019-02-27 15:59 | Hematology/Onc Progress Note ---
Assessment/Plan Assessment/Plan # Anemia due to underlying gi bleed, sp egd which showed duodenal ulceration, failed hemostasis --> continue ppi --> coags slightly elevated, nsider vit K if persistent bleeding --> transfuse if hgb <7 --> no indication for surgery --> trend hgb 13-->11.1-->11->12-->13.7->13.3-->13.8 --> if hgb downtrends may need ex lap per surg # Thrombocytosis and Leukocytosis with Sepsis, systemic inflammatory response syndrome --> monitor for improvement --> is on abx, zosyn per id--> amoxicillin --> per id recs --> wbc 16--.14-->14-->11.7-->6.9 --> trend plt 465k-->443k # DKA with Uncontrolled DM --> on insulin sliding scale --> endo recs reviewed # Lactic acidosis, --> trend as needed, on ivf, thiamine, folate # Acute renal failure that has been improving. --> sp fluids # Onychomycosis and tinea pedis, --> podiatry consulted # Elevated transaminase level due to etoh use --> trend as needed # Acute respiratory failure --> now extubated, breathing better --> on 2l NC The timing of this note does not necessarily reflect the time of the patient was seen. GREATLY APPRECIATE CONSULTATION. Subjective Constitutional: Denies: no symptoms, chills, fever, malaise, weakness, other Cardiovascular: Denies: no symptoms, chest pain, edema, irregular heart rate, lightheadedness, palpitations, syncope, other Respiratory: Denies: no symptoms, cough, shortness of breath, SOB with excertion, SOB at rest, sputum, wheezing, other Genitourinary: Denies: no symptoms, burning, discharge, frequency, flank pain, hematuria, incontinence, pain, urgency, other Neurologic/Psychiatric: Denies: no symptoms, anxiety, depressed, emotional problems, headache, numbness, paresthesia, pre-existing deficit, seizure, tingling, tremors, weakness, other Allergies: Coded Allergies: No Known Allergies (Unverified , 02/07/19) Subjective 02/09: remains intubated, on vent, able to respond, in [place], to commands weaning today, h/h reviewed 02/10: icu, extubated, labs reviewed 02/12: on 2l nc, h/h reviewed, no bleeding in sdu 02/13: on nc, no events, no blding, a+o x4 02/15: discharged, passing gas, no f/c, no major changes 02/16: no fever or chills, on abx, resting, no acute events 02/17: no f/c, vs stable, no distress, denies pain, on abx 02/18: no major changes, a+o x4, no bleeding or chills 02/20: labs reviewed, no bleeding, no f/c, no bleeding 02/22: no f/c, no sob, denies pain, off abx 02/23: no bleeding, no chills, no night sweats, no major changes 02/24: no f/c, on abx, no complaints, labs reviewed 02/25: no complaints, no f/c, stable 02/27: no f/c, has been eating ,labs noted Objective Objective Current Medications Medications (Trade) Dose Ordered Sig/Manish Route PRN Reason Start Time Stop Time Status Last Admin Dose Admin Acetaminophen (Tylenol) 650 mg Q6H PRN ORAL Mild Pain/Temp > 100.5 02/14/19 18:30 03/10/19 18:29 02/21/19 13:21 Amoxicillin (Amoxil) 1,000 mg BID@0630,1630 ORAL 02/23/19 11:30 03/02/19 11:29 02/27/19 05:48 Clarithromycin (Biaxin) 500 mg EVERY 12 HOURS ORAL 02/23/19 11:30 03/02/19 11:29 02/27/19 08:18 Dextrose (Dextrose 50%) 25 ml Q30M PRN IV Hypoglycemia 02/14/19 08:30 03/10/19 08:29 Dextrose (Dextrose 50%) 50 ml Q30M PRN IV Hypoglycemia 02/14/19 18:30 03/10/19 18:29 Docusate Sodium (Colace) 100 mg THREE TIMES A DAY ORAL 02/23/19 13:00 03/25/19 12:59 02/27/19 12:14 Gabapentin (Neurontin) 300 mg BID ORAL 02/22/19 18:00 03/24/19 17:59 02/27/19 08:17 Hydralazine HCl (Apresoline) 25 mg Q4H PRN ORAL bp over 160 syst 02/14/19 18:30 03/16/19 18:29 02/20/19 23:53 Metoprolol Tartrate (Lopressor) 25 mg Q12HR ORAL 02/14/19 21:00 03/16/19 20:59 02/27/19 08:18 Pantoprazole (Protonix) 40 mg BID ORAL 02/15/19 09:00 03/17/19 08:59 02/27/19 08:18 Polyethylene Glycol (Miralax) 17 gm BEDTIME ORAL 02/23/19 21:00 03/25/19 20:59 02/26/19 20:59 Thiamine HCl (Vitamin B1) 100 mg DAILY ORAL 02/15/19 09:00 03/17/19 08:59 02/27/19 08:17 Last 24 Hour Vital Signs Date Time Temp Pulse Resp B/P (MAP) Pulse Ox O2 Delivery O2 Flow Rate FiO2 02/27/19 12:19 152/79 (103) 02/27/19 12:00 98.5 81 17 164/84 (110) 97 02/27/19 08:48 Room Air 02/27/19 08:18 88 142/79 02/27/19 08:00 98.5 88 17 142/79 (100) 97 02/27/19 04:00 98.1 65 18 150/71 (97) 97 02/27/19 00:00 97.4 81 18 134/72 (92) 97 02/26/19 21:00 Room Air 02/26/19 20:59 83 142/78 02/26/19 20:00 97.8 83 20 142/78 (99) 96 02/26/19 16:00 97.8 89 18 128/76 (93) 96 02/26/19 12:00 98.1 77 18 132/75 (94) 99 02/26/19 09:55 89 138/80 02/26/19 09:00 Room Air 02/26/19 08:00 97.4 89 19 138/80 (99) 100 02/26/19 04:00 97.9 88 20 143/74 (97) 99 02/26/19 00:00 98.1 84 19 153/69 (97) 98 02/25/19 21:29 95 125/78 02/25/19 21:00 Room Air 02/25/19 20:00 97.7 95 20 125/78 (94) 96 02/25/19 16:00 98.0 81 18 130/69 (89) 97 Intake and Output 02/26/19 02/27/19 19:00 07:00 Intake Total 280 ml Output Total 500 ml Balance 280 ml -500 ml Intake Oral 280 ml Output Urine Total 500 ml Labs Test 02/25/19 04:40 02/26/19 06:17 02/27/19 06:30 White Blood Count 7.3 K/UL (4.8-10.8) 6.6 K/UL (4.8-10.8) 8.0 K/UL (4.8-10.8) Red Blood Count 4.45 M/UL (4.70-6.10) 4.56 M/UL (4.70-6.10) 4.48 M/UL (4.70-6.10) Hemoglobin 14.1 G/DL (14.2-18.0) 14.3 G/DL (14.2-18.0) 14.1 G/DL (14.2-18.0) Hematocrit 41.8 % (42.0-52.0) 42.6 % (42.0-52.0) 42.3 % (42.0-52.0) Mean Corpuscular Volume 94 FL (80-99) 93 FL (80-99) 94 FL (80-99) Mean Corpuscular Hemoglobin 31.6 PG (27.0-31.0) 31.4 PG (27.0-31.0) 31.4 PG (27.0-31.0) Mean Corpuscular Hemoglobin Concent 33.7 G/DL (32.0-36.0) 33.7 G/DL (32.0-36.0) 33.3 G/DL (32.0-36.0) Red Cell Distribution Width 14.7 % (11.6-14.8) 14.5 % (11.6-14.8) 14.9 % (11.6-14.8) Platelet Count 428 K/UL (150-450) 389 K/UL (150-450) 374 K/UL (150-450) Mean Platelet Volume 4.9 FL (6.5-10.1) 4.9 FL (6.5-10.1) 4.8 FL (6.5-10.1) Neutrophils (%) (Auto) 55.8 % (45.0-75.0) 53.4 % (45.0-75.0) 56.4 % (45.0-75.0) Lymphocytes (%) (Auto) 29.6 % (20.0-45.0) 31.6 % (20.0-45.0) 29.5 % (20.0-45.0) Monocytes (%) (Auto) 10.9 % (1.0-10.0) 11.1 % (1.0-10.0) 9.5 % (1.0-10.0) Eosinophils (%) (Auto) 2.3 % (0.0-3.0) 2.8 % (0.0-3.0) 3.2 % (0.0-3.0) Basophils (%) (Auto) 1.3 % (0.0-2.0) 1.1 % (0.0-2.0) 1.4 % (0.0-2.0) Sodium Level 140 MMOL/L (136-145) 141 MMOL/L (136-145) Potassium Level 4.1 MMOL/L (3.5-5.1) 5.0 MMOL/L (3.5-5.1) Chloride Level 104 MMOL/L (98-107) 105 MMOL/L (98-107) Carbon Dioxide Level 30 MMOL/L (21-32) 33 MMOL/L (21-32) Anion Gap 6 mmol/L (5-15) 3 mmol/L (5-15) Blood Urea Nitrogen 13 mg/dL (7-18) 13 mg/dL (7-18) Creatinine 0.6 MG/DL (0.55-1.30) 0.8 MG/DL (0.55-1.30) Estimat Glomerular Filtration Rate mL/min (>60) mL/min (>60) Glucose Level 113 MG/DL (74-106) 118 MG/DL (74-106) Calcium Level 9.0 MG/DL (8.5-10.1) 9.1 MG/DL (8.5-10.1) Height (Feet): 5 Height (Inches): 5.00 Weight (Pounds): 144 Objective General Appearance: no acute distress HEENT: mucous membranes moist Respiratory/Chest: lungs clear, 2l nc Cardiovascular: normal rate Abdomen: soft, non tender Extremities: no edema Neurologic/Psychiatric: alert, responsive Hal Smith MD Feb 27, 2019 15:59
--- NOTE | 2019-02-27 16:09 | NUR ---
[employer]AM [employer] SI: DIABETIC KETOACIDOSIS T. 98.6 HR 97 RR 16 B/P 152/77 RA 98% CO2 33 IS: AMOXICILLIN PO BIAXIN PO NEURONTIN PO COLACE PO MED/SURG STATUS
--- NOTE | 2019-02-27 19:29 | NUR ---
HAND-OFF: Report given to RAJI Benavidez RN.
--- NOTE | 2019-02-27 19:51 | NUR ---
NURSE NOTES: RECEIVED PT FROM RAJI TOTH. PT IS AWAKE, AAO X4, ON ROOM AIR, NO ACUTE DISTRESS NOTED. IV ON RIGHT HAND 22G IS INTACT AND PATENT. BED IS LOCKED AND LOW, BED ALARMS ACTIVE, SIDE RAILS UP X2 AND CALL LIGHT IS WITHIN REACH. WILL CONTINUE TO MONITOR.
[2019-02-27] MEDS: Miralax 17gm pkt ORAL SCH (20:14)
--- NOTE | 2019-02-27 21:04 | General Progress Note ---
Assessment/Plan Problem List: (1) ARF (acute renal failure) ICD Codes: N17.9 - Acute kidney failure, unspecified SNOMED: 94383638 Qualifiers: Qualified Codes: N17.9 - Acute kidney failure, unspecified (2) Sepsis ICD Codes: A41.9 - Sepsis, unspecified organism SNOMED: 26942799, 05798301 Qualifiers: Qualified Codes: A41.9 - Sepsis, unspecified organism; R65.20 - Severe sepsis without septic shock; N17.9 - Acute kidney failure, unspecified (3) Lactic acidosis ICD Codes: E87.2 - Acidosis SNOMED: 94992843, 71964751 (4) Anemia ICD Codes: D64.9 - Anemia, unspecified SNOMED: 571435314 (5) DKA (diabetic ketoacidoses) ICD Codes: E11.10 - Type 2 diabetes mellitus with ketoacidosis without coma SNOMED: 930354780, 43410377 Qualifiers: Qualified Codes: E13.10 - Other specified diabetes mellitus with ketoacidosis without coma (6) GIB (gastrointestinal bleeding) ICD Codes: K92.2 - Gastrointestinal hemorrhage, unspecified SNOMED: 59469326 (7) Acute respiratory failure ICD Codes: J96.00 - Acute respiratory failure, unspecified whether with hypoxia or hypercapnia SNOMED: 79788779 (8) Dehydration ICD Codes: E86.0 - Dehydration SNOMED: 58137929, 99912718 Status: stable, progressing Assessment/Plan: sugar improved dc to safe place check sugards afebrile dka resolved Subjective ROS Limited/Unobtainable: Yes Allergies: Coded Allergies: No Known Allergies (Unverified , 02/07/19) Objective Last 24 Hour Vital Signs Date Time Temp Pulse Resp B/P (MAP) Pulse Ox O2 Delivery O2 Flow Rate FiO2 02/27/19 20:14 100 157/84 02/27/19 20:00 98.0 100 16 157/84 (108) 100 02/27/19 16:02 98.6 97 16 134/73 (93) 94 02/27/19 12:19 152/79 (103) 02/27/19 12:00 98.5 81 17 164/84 (110) 97 02/27/19 08:48 Room Air 02/27/19 08:18 88 142/79 02/27/19 08:00 98.5 88 17 142/79 (100) 97 02/27/19 04:00 98.1 65 18 150/71 (97) 97 02/27/19 00:00 97.4 81 18 134/72 (92) 97 Intake and Output 02/26/19 02/27/19 18:59 06:59 Intake Total 280 ml Output Total 500 ml Balance 280 ml -500 ml Intake Oral 280 ml Output Urine Total 500 ml Laboratory Tests 02/27/19 06:30: White Blood Count 8.0, Red Blood Count 4.48L, Hemoglobin 14.1L, Hematocrit 42.3 , Mean Corpuscular Volume 94, Mean Corpuscular Hemoglobin 31.4H, Mean Corpuscular Hemoglobin Concent 33.3, Red Cell Distribution Width 14.9H, Platelet Count 374, Mean Platelet Volume 4.8L, Neutrophils (%) (Auto) 56.4, Lymphocytes (%) (Auto) 29.5, Monocytes (%) (Auto) 9.5, Eosinophils (%) (Auto) 3.2H, Basophils (%) (Auto) 1.4, Sodium Level 141, Potassium Level 5.0, Chloride Level 105, Carbon Dioxide Level 33H, Anion Gap 3L, Blood Urea Nitrogen 13, Creatinine 0.8, Estimat Glomerular Filtration Rate , Glucose Level 118H, Calcium Level 9.1 Height (Feet): 5 Height (Inches): 5.00 Weight (Pounds): 144 Cardiovascular: normal rate Respiratory/Chest: lungs clear Harvey Gee MD Feb 27, 2019 21:04
[2019-02-28] VITALS: BP 140/78
[2019-02-28 04:00] VITALS: BP 138/80
--- NOTE | 2019-02-28 07:00 | NUR ---
HAND-OFF: Report given to RAJI FORMAN
--- NOTE | 2019-02-28 07:02 | NUR ---
nurse notes received patient asleep , but easily arousable , no sign of distress, HL patent, on fall precaution , instructed patient to call for help, verbalized understanding, will continue to monitor patient condtion marie perez
[2019-02-28 08:00] VITALS: BP 140/82
[2019-02-28] MEDS: Thiamine 100mg tab ORAL SCH (08:11)
[2019-02-28] MEDS: Metoprolol 25mg tab ORAL SCH ×2 (08:12→20:53)
[2019-02-28] MEDS: Docusate 100mg cap ORAL SCH ×3 (08:12→17:13)
[2019-02-28] MEDS: Clarithromycin 500mg tab ORAL SCH ×2 (08:12→20:53)
--- NOTE | 2019-02-28 09:03 | General Progress Note ---
Assessment/Plan Problem List: (1) GIB (gastrointestinal bleeding) ICD Codes: K92.2 - Gastrointestinal hemorrhage, unspecified SNOMED: 69713597 Status: stable, progressing Assessment/Plan: stable H&H on diet cont protonix treat for HP no recurrent bleed Subjective ROS Limited/Unobtainable: Yes Allergies: Coded Allergies: No Known Allergies (Unverified , 02/07/19) Objective Last 24 Hour Vital Signs Date Time Temp Pulse Resp B/P (MAP) Pulse Ox O2 Delivery O2 Flow Rate FiO2 02/28/19 08:12 94 138/80 02/28/19 08:00 97.9 94 18 140/82 (101) 94 02/28/19 07:50 Room Air 02/28/19 04:00 98.0 94 16 138/80 (99) 92 02/28/19 00:00 97.6 86 17 140/78 (98) 96 02/27/19 21:00 Room Air 02/27/19 20:14 100 157/84 02/27/19 20:00 98.0 100 16 157/84 (108) 100 02/27/19 16:02 98.6 97 16 134/73 (93) 94 02/27/19 12:19 152/79 (103) 02/27/19 12:00 98.5 81 17 164/84 (110) 97 Intake and Output 02/27/19 02/28/19 19:00 07:00 Intake Total 800 ml 120 ml Output Total 550 ml 200 ml Balance 250 ml -80 ml Intake Oral 800 ml Other 120 ml Output Urine Total 550 ml 200 ml # Voids 3 1 # Bowel Movements 1 Height (Feet): 5 Height (Inches): 5.00 Weight (Pounds): 144 General Appearance: alert EENT: PERRL/EOMI Neck: supple Cardiovascular: normal rate Respiratory/Chest: lungs clear Abdomen: normal bowel sounds, non tender, soft Extremities: non-tender Kj Conn MD Feb 28, 2019 09:03
--- NOTE | 2019-02-28 10:23 | NUR ---
Social Service Note KELLY referral submitted to [facility] Reference #[id number]. Will follow up [phone]. Addendum: 02/28/19 at 1143 by LYNNE SHARP Social Service Note Referral received by Radha. No beds available today. Referral being reviewed. Radha will follow up with KELLY if additional information is required. Will continue to monitor.
--- NOTE | 2019-02-28 11:09 | Hematology/Onc Progress Note ---
Assessment/Plan Assessment/Plan # Anemia due to underlying gi bleed, sp egd which showed duodenal ulceration, failed hemostasis --> continue ppi --> coags slightly elevated, nsider vit K if persistent bleeding --> transfuse if hgb <7 --> no indication for surgery --> trend hgb 13-->11.1-->11->12-->13.7->13.3-->13.8 --> if hgb downtrends may need ex lap per surg # Thrombocytosis and Leukocytosis with Sepsis, systemic inflammatory response syndrome --> monitor for improvement --> is on abx, zosyn per id--> amoxicillin, clarithomycin --> per id recs --> wbc 16--.14-->14-->11.7-->6.9 --> trend plt 465k-->443k # DKA with Uncontrolled DM --> on insulin sliding scale --> endo recs reviewed # Lactic acidosis, --> trend as needed, on ivf, thiamine, folate # Acute renal failure that has been improving. --> sp fluids # Onychomycosis and tinea pedis, --> podiatry consulted # Elevated transaminase level due to etoh use --> trend as needed # Acute respiratory failure --> now extubated, breathing better --> on 2l NC The timing of this note does not necessarily reflect the time of the patient was seen. GREATLY APPRECIATE CONSULTATION. Subjective Allergies: Coded Allergies: No Known Allergies (Unverified , 02/07/19) Subjective 02/09: remains intubated, on vent, able to respond, in [place], to commands weaning today, h/h reviewed 02/10: icu, extubated, labs reviewed 02/12: on 2l nc, h/h reviewed, no bleeding in sdu 02/13: on nc, no events, no blding, a+o x4 02/15: discharged, passing gas, no f/c, no major changes 02/16: no fever or chills, on abx, resting, no acute events 02/17: no f/c, vs stable, no distress, denies pain, on abx 02/18: no major changes, a+o x4, no bleeding or chills 9/2: labs reviewed, no bleeding, no f/c, no bleeding 02/22: no f/c, no sob, denies pain, off abx 02/23: no bleeding, no chills, no night sweats, no major changes 02/24: no f/c, on abx, no complaints, labs reviewed 02/25: no complaints, no f/c, stable 02/27: no f/c, has been eating ,labs noted 02/28: no f/c, vs stable, on abx, no distress, fall precaution Objective Objective Current Medications Medications (Trade) Dose Ordered Sig/Manish Route PRN Reason Start Time Stop Time Status Last Admin Dose Admin Acetaminophen (Tylenol) 650 mg Q6H PRN ORAL Mild Pain/Temp > 100.5 02/14/19 18:30 03/10/19 18:29 02/21/19 13:21 Amoxicillin (Amoxil) 1,000 mg BID@0630,1630 ORAL 02/23/19 11:30 03/02/19 11:29 02/28/19 06:03 Clarithromycin (Biaxin) 500 mg EVERY 12 HOURS ORAL 02/23/19 11:30 03/02/19 11:29 02/28/19 08:12 Dextrose (Dextrose 50%) 25 ml Q30M PRN IV Hypoglycemia 02/14/19 08:30 03/10/19 08:29 Dextrose (Dextrose 50%) 50 ml Q30M PRN IV Hypoglycemia 02/14/19 18:30 03/10/19 18:29 Docusate Sodium (Colace) 100 mg THREE TIMES A DAY ORAL 02/23/19 13:00 03/25/19 12:59 02/28/19 08:12 Gabapentin (Neurontin) 300 mg BID ORAL 02/22/19 18:00 03/24/19 17:59 02/28/19 08:12 Hydralazine HCl (Apresoline) 25 mg Q4H PRN ORAL bp over 160 syst 02/14/19 18:30 03/16/19 18:29 02/20/19 23:53 Metoprolol Tartrate (Lopressor) 25 mg Q12HR ORAL 02/14/19 21:00 03/16/19 20:59 02/28/19 08:12 Pantoprazole (Protonix) 40 mg BID ORAL 02/15/19 09:00 03/17/19 08:59 02/28/19 08:12 Polyethylene Glycol (Miralax) 17 gm BEDTIME ORAL 02/23/19 21:00 03/25/19 20:59 02/27/19 20:14 Thiamine HCl (Vitamin B1) 100 mg DAILY ORAL 02/15/19 09:00 03/17/19 08:59 02/28/19 08:11 Last 24 Hour Vital Signs Date Time Temp Pulse Resp B/P (MAP) Pulse Ox O2 Delivery O2 Flow Rate FiO2 02/28/19 08:12 94 138/80 02/28/19 08:00 97.9 94 18 140/82 (101) 94 02/28/19 07:50 Room Air 02/28/19 04:00 98.0 94 16 138/80 (99) 92 02/28/19 00:00 97.6 86 17 140/78 (98) 96 02/27/19 21:00 Room Air 02/27/19 20:14 100 157/84 02/27/19 20:00 98.0 100 16 157/84 (108) 100 02/27/19 16:02 98.6 97 16 134/73 (93) 94 02/27/19 12:19 152/79 (103) 02/27/19 12:00 98.5 81 17 164/84 (110) 97 02/27/19 08:48 Room Air 02/27/19 08:18 88 142/79 02/27/19 08:00 98.5 88 17 142/79 (100) 97 02/27/19 04:00 98.1 65 18 150/71 (97) 97 02/27/19 00:00 97.4 81 18 134/72 (92) 97 02/26/19 21:00 Room Air 02/26/19 20:59 83 142/78 02/26/19 20:00 97.8 83 20 142/78 (99) 96 02/26/19 16:00 97.8 89 18 128/76 (93) 96 02/26/19 12:00 98.1 77 18 132/75 (94) 99 Intake and Output 02/27/19 02/28/19 19:00 07:00 Intake Total 800 ml 120 ml Output Total 550 ml 200 ml Balance 250 ml -80 ml Intake Oral 800 ml Other 120 ml Output Urine Total 550 ml 200 ml # Voids 3 1 # Bowel Movements 1 Labs Test 02/26/19 06:17 02/27/19 06:30 White Blood Count 6.6 K/UL (4.8-10.8) 8.0 K/UL (4.8-10.8) Red Blood Count 4.56 M/UL (4.70-6.10) 4.48 M/UL (4.70-6.10) Hemoglobin 14.3 G/DL (14.2-18.0) 14.1 G/DL (14.2-18.0) Hematocrit 42.6 % (42.0-52.0) 42.3 % (42.0-52.0) Mean Corpuscular Volume 93 FL (80-99) 94 FL (80-99) Mean Corpuscular Hemoglobin 31.4 PG (27.0-31.0) 31.4 PG (27.0-31.0) Mean Corpuscular Hemoglobin Concent 33.7 G/DL (32.0-36.0) 33.3 G/DL (32.0-36.0) Red Cell Distribution Width 14.5 % (11.6-14.8) 14.9 % (11.6-14.8) Platelet Count 389 K/UL (150-450) 374 K/UL (150-450) Mean Platelet Volume 4.9 FL (6.5-10.1) 4.8 FL (6.5-10.1) Neutrophils (%) (Auto) 53.4 % (45.0-75.0) 56.4 % (45.0-75.0) Lymphocytes (%) (Auto) 31.6 % (20.0-45.0) 29.5 % (20.0-45.0) Monocytes (%) (Auto) 11.1 % (1.0-10.0) 9.5 % (1.0-10.0) Eosinophils (%) (Auto) 2.8 % (0.0-3.0) 3.2 % (0.0-3.0) Basophils (%) (Auto) 1.1 % (0.0-2.0) 1.4 % (0.0-2.0) Sodium Level 140 MMOL/L (136-145) 141 MMOL/L (136-145) Potassium Level 4.1 MMOL/L (3.5-5.1) 5.0 MMOL/L (3.5-5.1) Chloride Level 104 MMOL/L (98-107) 105 MMOL/L (98-107) Carbon Dioxide Level 30 MMOL/L (21-32) 33 MMOL/L (21-32) Anion Gap 6 mmol/L (5-15) 3 mmol/L (5-15) Blood Urea Nitrogen 13 mg/dL (7-18) 13 mg/dL (7-18) Creatinine 0.6 MG/DL (0.55-1.30) 0.8 MG/DL (0.55-1.30) Estimat Glomerular Filtration Rate mL/min (>60) mL/min (>60) Glucose Level 113 MG/DL (74-106) 118 MG/DL (74-106) Calcium Level 9.0 MG/DL (8.5-10.1) 9.1 MG/DL (8.5-10.1) Height (Feet): 5 Height (Inches): 5.00 Weight (Pounds): 144 Objective General Appearance: no acute distress HEENT: mucous membranes moist Respiratory/Chest: lungs clear, 2l nc Cardiovascular: normal rate Abdomen: soft, non tender Extremities: no edema Neurologic/Psychiatric: alert, responsive Hal Smith MD Feb 28, 2019 11:09
--- NOTE | 2019-02-28 11:10 | Cardiac Electrophysiology PN ---
Assessment/Plan Assessment/Plan 1. S/P sinus tachycardia due to DKA and GI bleed. Resolved No atrial fibrillation or SVT. EF 60%. 2. Hypertension. On Lopressor 25 bid 3. S/P Respiratory failure, Extubated 4. Acute GI bleed, endoscopy by Dr. Conn showed duodenal ulcer. S/P 4 units of blood transfusion. No indication for surgery per Dr. Baumann 5. S/P Diabetic ketoacidosis, on insulin 6. Homelessness and uninsured Difficulty placement DW RN Subjective Subjective No CP or SOB. Placement pending as home less. Objective Last 24 Hour Vital Signs Date Time Temp Pulse Resp B/P (MAP) Pulse Ox O2 Delivery O2 Flow Rate FiO2 02/28/19 08:12 94 138/80 02/28/19 08:00 97.9 94 18 140/82 (101) 94 02/28/19 07:50 Room Air 02/28/19 04:00 98.0 94 16 138/80 (99) 92 02/28/19 00:00 97.6 86 17 140/78 (98) 96 02/27/19 21:00 Room Air 02/27/19 20:14 100 157/84 02/27/19 20:00 98.0 100 16 157/84 (108) 100 02/27/19 16:02 98.6 97 16 134/73 (93) 94 02/27/19 12:19 152/79 (103) 02/27/19 12:00 98.5 81 17 164/84 (110) 97 Intake and Output 02/27/19 02/28/19 19:00 07:00 Intake Total 800 ml 120 ml Output Total 550 ml 200 ml Balance 250 ml -80 ml Intake Oral 800 ml Other 120 ml Output Urine Total 550 ml 200 ml # Voids 3 1 # Bowel Movements 1 Objective HEAD AND NECK: No JVD. LUNGS: Decreased breath sounds. CARDIOVASCULAR: Nl S1 and S2 with no gallop. ABDOMEN: Soft. EXTREMITIES: No pitting edema Matthew Kent MD Feb 28, 2019 11:10
--- NOTE | 2019-02-28 11:31 | Nephrology Progress Note ---
Assessment/Plan Problem List: (1) ARF (acute renal failure) (2) Dehydration (3) Acute respiratory failure (4) Esophageal varices (5) GIB (gastrointestinal bleeding) Assessment Acute renal failure , Cr lower now intubated Dehydration Hyperglycemia high Lactate level esophageal bleed GI bleed . Plan tolerating diet- switch meds to po as possible- in med surg K and Phos and mag supplement as needed per GI- Monitor lytes and renal parameters PT Subjective ROS Limited/Unobtainable: No Constitutional: Reports: malaise Objective Objective Last 24 Hour Vital Signs Date Time Temp Pulse Resp B/P (MAP) Pulse Ox O2 Delivery O2 Flow Rate FiO2 02/28/19 08:12 94 138/80 02/28/19 08:00 97.9 94 18 140/82 (101) 94 02/28/19 07:50 Room Air 02/28/19 04:00 98.0 94 16 138/80 (99) 92 02/28/19 00:00 97.6 86 17 140/78 (98) 96 02/27/19 21:00 Room Air 02/27/19 20:14 100 157/84 02/27/19 20:00 98.0 100 16 157/84 (108) 100 02/27/19 16:02 98.6 97 16 134/73 (93) 94 02/27/19 12:19 152/79 (103) 02/27/19 12:00 98.5 81 17 164/84 (110) 97 Intake and Output 02/27/19 02/28/19 19:00 07:00 Intake Total 800 ml 120 ml Output Total 550 ml 200 ml Balance 250 ml -80 ml Intake Oral 800 ml Other 120 ml Output Urine Total 550 ml 200 ml # Voids 3 1 # Bowel Movements 1 Height (Feet): 5 Height (Inches): 5.00 Weight (Pounds): 144 General Appearance: no apparent distress Objective no change Arturo Cruz MD Feb 28, 2019 11:31
--- NOTE | 2019-02-28 11:54 | NUR ---
RD ASSESSMENT & RECOMMENDATIONS SEE CARE ACTIVITY FOR COMPLETE ASSESSMENT DAILY ESTIMATED NEEDS: Needs based on DM, wound/ 56kg 25-30 kcals/kg 0383-3934 total kcals 1.25-1.5 g protein/kg 70-84 g total protein 25-30 mL/kg 5500-7454 total fluid mLs NUTRITION DIAGNOSIS: * Altered GI function R/T GIB as evidenced by s/p EGD w/ finding of large duodenal ulcer, now extubated, diet advanced to soft easy chew. * Altered nutrition related lab values R/T diabetes, liver dysfunction as evidenced by BG 405 upon adm-> now improved w/ POC glu wnl, A1C of 6.7, elev LFTs, trending back down. CURRENT DIET:CCHO MED, soft easy chew PO DIET RECOMMENDATIONS: LOW NA, CCHO MED, BLAND/ texture as tolerated ADDITIONAL RECOMMENDATIONS: * Calibrated bedscale wt for accurate CBW -> w/ p200 mattress, SCD's * Wound healing: add MVI x 1, Vit C 250mg QD, Jonathon 1pkt BID * Monitor BGs closely-admitted w/ DKA, now POC glu wnl * Monitor lytes, replete as needed * Monitor LFTs - trending back down * Add GLUCERNA BID (250 kcal/each)
--- NOTE | 2019-02-28 12:11 | Surgery Progress Note ---
Surgery Progress Note Subjective Additional Comments opal cute events comfortable no n/v/f/c. Objective Last 24 Hour Vital Signs Date Time Temp Pulse Resp B/P (MAP) Pulse Ox O2 Delivery O2 Flow Rate FiO2 02/28/19 08:12 94 138/80 02/28/19 08:00 97.9 94 18 140/82 (101) 94 02/28/19 07:50 Room Air 02/28/19 04:00 98.0 94 16 138/80 (99) 92 02/28/19 00:00 97.6 86 17 140/78 (98) 96 02/27/19 21:00 Room Air 02/27/19 20:14 100 157/84 02/27/19 20:00 98.0 100 16 157/84 (108) 100 02/27/19 16:02 98.6 97 16 134/73 (93) 94 02/27/19 12:19 152/79 (103) I&O Intake and Output 02/27/19 02/28/19 19:00 07:00 Intake Total 800 ml 120 ml Output Total 550 ml 200 ml Balance 250 ml -80 ml Intake Oral 800 ml Other 120 ml Output Urine Total 550 ml 200 ml # Voids 3 1 # Bowel Movements 1 Dressing: dry, other Wound: clean, other Drains: none Cardiovascular: RSR Respiratory: clear Abdomen: soft, non-tender Extremities: no edema, no cyanosis Plan Problems: (1) GIB (gastrointestinal bleeding) Assessment & Plan: 69-year-old male with acute gastrointestinal hemorrhage secondary to large duodenal ulcer. Patient had endoscopy with hemostasis just now identified a large ulcer with potential to rebleed. Need to control patient's hypertension and allow for even permissive hypotension if necessary h/h stable overall doing better labs stable now exam stable Will follow and be available in case patient rebleeds at which time he will require an exploration thank you for allowing me to participate in patient's care d/c planning pending placement will follow with recommendations Adelso Baumann Feb 28, 2019 12:11
[2019-02-28 12:18] VITALS: BP 122/74
--- NOTE | 2019-02-28 12:38 | Infectious Diseases Prog Note ---
Assessment/Plan Assessment/Plan IMPRESSION: Sepsis, resolved systemic inflammatory response syndrome, Leukocytosis GI bleeding Duodenal ulcer. DM, off insulin Lactic acidosis, Acute renal failure resolved Onychomycosis tinea pedis treated anemia, received blood transfusion, Elevated transaminase level. Acute respiratory failure resolved H. pylori infection Diabetic neuropathy RECOMMENDATION: Continue Amoxicillin, Biaxin & Protonix Waiting for placement Subjective ROS Limited/Unobtainable: Yes Respiratory: Reports: no symptoms Musculoskeletal: Reports: pain, other - in feet Allergies: Coded Allergies: No Known Allergies (Unverified , 02/07/19) Objective Vital Signs Last 24 Hour Vital Signs Date Time Temp Pulse Resp B/P (MAP) Pulse Ox O2 Delivery O2 Flow Rate FiO2 02/28/19 12:18 98.0 94 17 122/74 (90) 94 02/28/19 08:12 94 138/80 02/28/19 08:00 97.9 94 18 140/82 (101) 94 02/28/19 07:50 Room Air 02/28/19 04:00 98.0 94 16 138/80 (99) 92 02/28/19 00:00 97.6 86 17 140/78 (98) 96 02/27/19 21:00 Room Air 02/27/19 20:14 100 157/84 02/27/19 20:00 98.0 100 16 157/84 (108) 100 02/27/19 16:02 98.6 97 16 134/73 (93) 94 Height (Feet): 5 Height (Inches): 5.00 Weight (Pounds): 144 General Appearance: no acute distress HEENT: mucous membranes moist Respiratory/Chest: lungs clear Cardiovascular: normal rate Abdomen: soft, non tender Extremities: no edema Neurologic/Psychiatric: alert, responsive Current Medications Medications (Trade) Dose Ordered Sig/Manish Route PRN Reason Start Time Stop Time Status Last Admin Dose Admin Acetaminophen (Tylenol) 650 mg Q6H PRN ORAL Mild Pain/Temp > 100.5 02/14/19 18:30 03/10/19 18:29 02/21/19 13:21 Amoxicillin (Amoxil) 1,000 mg BID@0630,1630 ORAL 02/23/19 11:30 03/02/19 11:29 02/28/19 06:03 Clarithromycin (Biaxin) 500 mg EVERY 12 HOURS ORAL 02/23/19 11:30 03/02/19 11:29 02/28/19 08:12 Dextrose (Dextrose 50%) 25 ml Q30M PRN IV Hypoglycemia 02/14/19 08:30 03/10/19 08:29 Dextrose (Dextrose 50%) 50 ml Q30M PRN IV Hypoglycemia 02/14/19 18:30 03/10/19 18:29 Docusate Sodium (Colace) 100 mg THREE TIMES A DAY ORAL 02/23/19 13:00 03/25/19 12:59 02/28/19 12:18 Gabapentin (Neurontin) 300 mg BID ORAL 02/22/19 18:00 03/24/19 17:59 02/28/19 08:12 Hydralazine HCl (Apresoline) 25 mg Q4H PRN ORAL bp over 160 syst 02/14/19 18:30 03/16/19 18:29 02/20/19 23:53 Metoprolol Tartrate (Lopressor) 25 mg Q12HR ORAL 02/14/19 21:00 03/16/19 20:59 02/28/19 08:12 Pantoprazole (Protonix) 40 mg BID ORAL 02/15/19 09:00 03/17/19 08:59 02/28/19 08:12 Polyethylene Glycol (Miralax) 17 gm BEDTIME ORAL 02/23/19 21:00 03/25/19 20:59 02/27/19 20:14 Thiamine HCl (Vitamin B1) 100 mg DAILY ORAL 02/15/19 09:00 03/17/19 08:59 02/28/19 08:11 Fazal Basilio MD Feb 28, 2019 12:38
--- NOTE | 2019-02-28 13:50 | NUR ---
PT NOTE Attempted to see patient for PT treatment. Patient declining to participate with PT due to L foot pain. Angella ALEGRIA notified, will follow up tomorrow.
--- NOTE | 2019-02-28 14:37 | NUR ---
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 98.0 HR 94 RR 17 B/P 122/74 IS; COLACE PO BIAXIN PO AMOXICILLIN PO NEURONTIN PO PROTONIX PO MED/SURG STATUS
[2019-02-28 16:00] VITALS: BP 140/72
--- NOTE | 2019-02-28 19:26 | NUR ---
HAND-OFF: Report given to RAJI CROUCH accordingly RAJI KO
--- NOTE | 2019-02-28 19:49 | NUR ---
NURSE NOTES: Received patient comfortably sleeping. no SOB noted.
[2019-02-28 20:00] VITALS: BP 146/81
[2019-02-28] MEDS: Miralax 17gm pkt ORAL SCH (20:53)
--- NOTE | 2019-02-28 21:34 | General Progress Note ---
Assessment/Plan Problem List: (1) ARF (acute renal failure) ICD Codes: N17.9 - Acute kidney failure, unspecified SNOMED: 30921892 Qualifiers: Qualified Codes: N17.9 - Acute kidney failure, unspecified (2) Sepsis ICD Codes: A41.9 - Sepsis, unspecified organism SNOMED: 13557036, 77616085 Qualifiers: Qualified Codes: A41.9 - Sepsis, unspecified organism; R65.20 - Severe sepsis without septic shock; N17.9 - Acute kidney failure, unspecified (3) Lactic acidosis ICD Codes: E87.2 - Acidosis SNOMED: 77931379, 66755568 (4) Anemia ICD Codes: D64.9 - Anemia, unspecified SNOMED: 406264030 (5) DKA (diabetic ketoacidoses) ICD Codes: E11.10 - Type 2 diabetes mellitus with ketoacidosis without coma SNOMED: 763371419, 62967923 Qualifiers: Qualified Codes: E13.10 - Other specified diabetes mellitus with ketoacidosis without coma (6) GIB (gastrointestinal bleeding) ICD Codes: K92.2 - Gastrointestinal hemorrhage, unspecified SNOMED: 64502262 (7) Acute respiratory failure ICD Codes: J96.00 - Acute respiratory failure, unspecified whether with hypoxia or hypercapnia SNOMED: 30117231 (8) Dehydration ICD Codes: E86.0 - Dehydration SNOMED: 25329576, 10860644 Status: stable, progressing Assessment/Plan: needs placement sugar is improving nac Subjective ROS Limited/Unobtainable: Yes Allergies: Coded Allergies: No Known Allergies (Unverified , 02/07/19) Objective Last 24 Hour Vital Signs Date Time Temp Pulse Resp B/P (MAP) Pulse Ox O2 Delivery O2 Flow Rate FiO2 02/28/19 20:53 105 146/81 02/28/19 20:05 Room Air 02/28/19 20:00 97.1 105 16 146/81 (102) 95 02/28/19 16:00 98.1 95 17 140/72 (94) 98 02/28/19 12:18 98.0 94 17 122/74 (90) 94 02/28/19 08:12 94 138/80 02/28/19 08:00 97.9 94 18 140/82 (101) 94 02/28/19 07:50 Room Air 02/28/19 04:00 98.0 94 16 138/80 (99) 92 02/28/19 00:00 97.6 86 17 140/78 (98) 96 Intake and Output 02/27/19 02/28/19 19:00 07:00 Intake Total 800 ml 120 ml Output Total 550 ml 200 ml Balance 250 ml -80 ml Intake Oral 800 ml Other 120 ml Output Urine Total 550 ml 200 ml # Voids 3 1 # Bowel Movements 1 Height (Feet): 5 Height (Inches): 5.00 Weight (Pounds): 144 Cardiovascular: regular rhythm Respiratory/Chest: lungs clear Harvey Gee MD Feb 28, 2019 21:34
[2019-03-01] VITALS: BP 140/83
[2019-03-01 04:00] VITALS: BP 116/80
--- NOTE | 2019-03-01 07:15 | NUR ---
HAND-OFF: Report given to Debbie Koehler RN.
[2019-03-01 08:00] VITALS: BP 157/71
--- NOTE | 2019-03-01 08:00 | NUR ---
NURSE NOTES: Patient is awake and alert,sitting up in bed and eating breakfast,respirations unlabored.No concerns at this time.Bed alarm is on,call light within reach.
[2019-03-01] MEDS: Clarithromycin 500mg tab ORAL SCH ×2 (09:01→22:35)
[2019-03-01] MEDS: Docusate 100mg cap ORAL SCH ×3 (09:01→18:31)
[2019-03-01] MEDS: Metoprolol 25mg tab ORAL SCH ×2 (09:02→22:35)
[2019-03-01] MEDS: Thiamine 100mg tab ORAL SCH (09:02)
--- NOTE | 2019-03-01 10:22 | Nephrology Progress Note ---
Assessment/Plan Problem List: (1) ARF (acute renal failure) (2) Dehydration (3) Acute respiratory failure (4) Esophageal varices (5) GIB (gastrointestinal bleeding) Assessment Acute renal failure , Cr lower now intubated Dehydration Hyperglycemia high Lactate level esophageal bleed GI bleed . Plan tolerating diet- switch meds to po as possible- in med surg K and Phos and mag supplement as needed per GI- Monitor lytes and renal parameters PT Subjective ROS Limited/Unobtainable: No Constitutional: Reports: malaise Objective Objective Last 24 Hour Vital Signs Date Time Temp Pulse Resp B/P (MAP) Pulse Ox O2 Delivery O2 Flow Rate FiO2 03/01/19 09:02 91 155/69 03/01/19 04:00 97.4 90 16 116/80 (92) 95 03/01/19 00:00 97.6 99 15 140/83 (102) 96 02/28/19 20:53 105 146/81 02/28/19 20:05 Room Air 02/28/19 20:00 97.1 105 16 146/81 (102) 95 02/28/19 16:00 98.1 95 17 140/72 (94) 98 02/28/19 12:18 98.0 94 17 122/74 (90) 94 Intake and Output 02/28/19 03/01/19 19:00 07:00 Intake Total 800 ml 360 ml Output Total 700 ml Balance 100 ml 360 ml Intake Oral 800 ml 360 ml Output Urine Total 700 ml # Voids 3 4 # Bowel Movements 1 Height (Feet): 5 Height (Inches): 5.00 Weight (Pounds): 142 General Appearance: no apparent distress Objective no change Arturo Cruz MD Mar 01, 2019 10:21
--- NOTE | 2019-03-01 10:52 | Surgery Progress Note ---
Surgery Progress Note Subjective Additional Comments no acute events stable comfortable Objective Last 24 Hour Vital Signs Date Time Temp Pulse Resp B/P (MAP) Pulse Ox O2 Delivery O2 Flow Rate FiO2 03/01/19 09:02 91 155/69 03/01/19 04:00 97.4 90 16 116/80 (92) 95 03/01/19 00:00 97.6 99 15 140/83 (102) 96 02/28/19 20:53 105 146/81 02/28/19 20:05 Room Air 02/28/19 20:00 97.1 105 16 146/81 (102) 95 02/28/19 16:00 98.1 95 17 140/72 (94) 98 02/28/19 12:18 98.0 94 17 122/74 (90) 94 I&O Intake and Output 02/28/19 03/01/19 19:00 07:00 Intake Total 800 ml 360 ml Output Total 700 ml Balance 100 ml 360 ml Intake Oral 800 ml 360 ml Output Urine Total 700 ml # Voids 3 4 # Bowel Movements 1 Drains: none Cardiovascular: RSR Respiratory: clear Abdomen: soft, flat, non-tender, present bowel sounds Extremities: no tenderness, no cyanosis, other Plan Problems: (1) GIB (gastrointestinal bleeding) Assessment & Plan: 69-year-old male with acute gastrointestinal hemorrhage secondary to large duodenal ulcer. Patient had endoscopy with hemostasis just now identified a large ulcer with potential to rebleed. Need to control patient's hypertension and allow for even permissive hypotension if necessary h/h stable overall doing better labs stable now exam stable Will follow and be available in case patient rebleeds at which time he will require an exploration thank you for allowing me to participate in patient's care d/c planning pending placement will follow with recommendations Adelso Baumann Mar 01, 2019 10:52
--- NOTE | 2019-03-01 11:55 | NUR ---
Social Service Note SW spoke with [place] at [facility], patient on waiting list. W/C is anticipated to be delivered tomorrow. Will continue to follow up.
[2019-03-01 12:00] VITALS: BP 130/70
--- NOTE | 2019-03-01 13:33 | NUR ---
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
--- NOTE | 2019-03-01 15:43 | Hematology/Onc Progress Note ---
Assessment/Plan Assessment/Plan # Anemia due to underlying gi bleed, sp egd which showed duodenal ulceration, failed hemostasis --> continue ppi --> coags slightly elevated, nsider vit K if persistent bleeding --> transfuse if hgb <7 --> no indication for surgery --> trend hgb 13-->11.1-->11->12-->13.7->13.3-->13.8 --> if hgb downtrends may need ex lap per surg # Thrombocytosis and Leukocytosis with Sepsis, systemic inflammatory response syndrome --> monitor for improvement --> is on abx, zosyn per id--> amoxicillin, clarithomycin --> per id recs --> wbc 16--.14-->14-->11.7-->6.9 --> trend plt 465k-->443k # DKA with Uncontrolled DM --> on insulin sliding scale --> endo recs reviewed # Lactic acidosis, --> trend as needed, on ivf, thiamine, folate # Acute renal failure that has been improving. --> sp fluids # Onychomycosis and tinea pedis, --> podiatry consulted # Elevated transaminase level due to etoh use --> trend as needed # Acute respiratory failure --> now extubated, breathing better --> on 2l NC # Homeless ness --> for placement, will leave scripts, may be placed in homeless care home The timing of this note does not necessarily reflect the time of the patient was seen. GREATLY APPRECIATE CONSULTATION. Subjective Constitutional: Denies: no symptoms, chills, fever, malaise, weakness, other HEENT: Denies: no symptoms, eye pain, blurred vision, tearing, double vision, ear pain, ear discharge, nose pain, nose congestion, throat pain, throat swelling, mouth pain, mouth swelling, other Cardiovascular: Denies: no symptoms, chest pain, edema, irregular heart rate, lightheadedness, palpitations, syncope, other Respiratory: Denies: no symptoms, cough, shortness of breath, SOB with excertion, SOB at rest, sputum, wheezing, other Gastrointestinal/Abdominal: Denies: no symptoms, abdomen distended, abdominal pain, black stools, tarry stools, blood in stool, constipated, diarrhea, difficulty swallowing, nausea, poor appetite, poor fluid intake, rectal bleeding , vomiting, other Genitourinary: Denies: no symptoms, burning, discharge, frequency, flank pain, hematuria, incontinence, pain, urgency, other Neurologic/Psychiatric: Denies: no symptoms, anxiety, depressed, emotional problems, headache, numbness, paresthesia, pre-existing deficit, seizure, tingling, tremors, weakness, other Endocrine: Denies: no symptoms, excessive sweating, flushing, intolerance to cold, intolerance to heat, increased hunger, increased thirst, increased urine, unexplained weight gain, unexplained weight loss, other Allergies: Coded Allergies: No Known Allergies (Unverified , 02/07/19) Subjective 02/09: remains intubated, on vent, able to respond, in egyptian, to commands weaning today, h/h reviewed 02/10: icu, extubated, labs reviewed 02/12: on 2l nc, h/h reviewed, no bleeding in sdu 02/13: on nc, no events, no blding, a+o x4 02/15: discharged, passing gas, no f/c, no major changes 02/16: no fever or chills, on abx, resting, no acute events 02/17: no f/c, vs stable, no distress, denies pain, on abx 02/18: no major changes, a+o x4, no bleeding or chills 02/20: labs reviewed, no bleeding, no f/c, no bleeding 02/22: no f/c, no sob, denies pain, off abx 02/23: no bleeding, no chills, no night sweats, no major changes 02/24: no f/c, on abx, no complaints, labs reviewed 02/25: no complaints, no f/c, stable 02/27: no f/c, has been eating ,labs noted 02/28: no f/c, vs stable, on abx, no distress, fall precaution 03/01: no events to report, no bleeding, no chils Objective Objective Current Medications Medications (Trade) Dose Ordered Sig/Manish Route PRN Reason Start Time Stop Time Status Last Admin Dose Admin Acetaminophen (Tylenol) 650 mg Q6H PRN ORAL Mild Pain/Temp > 100.5 02/14/19 18:30 03/10/19 18:29 02/21/19 13:21 Amoxicillin (Amoxil) 1,000 mg BID@0630,1630 ORAL 02/23/19 11:30 03/02/19 11:29 03/01/19 05:56 Clarithromycin (Biaxin) 500 mg EVERY 12 HOURS ORAL 02/23/19 11:30 03/02/19 11:29 03/01/19 09:01 Dextrose (Dextrose 50%) 25 ml Q30M PRN IV Hypoglycemia 02/14/19 08:30 03/10/19 08:29 Dextrose (Dextrose 50%) 50 ml Q30M PRN IV Hypoglycemia 02/14/19 18:30 03/10/19 18:29 Docusate Sodium (Colace) 100 mg THREE TIMES A DAY ORAL 02/23/19 13:00 03/25/19 12:59 03/01/19 13:27 Gabapentin (Neurontin) 300 mg BID ORAL 02/22/19 18:00 03/24/19 17:59 03/01/19 09:01 Hydralazine HCl (Apresoline) 25 mg Q4H PRN ORAL bp over 160 syst 02/14/19 18:30 03/16/19 18:29 02/20/19 23:53 Metoprolol Tartrate (Lopressor) 25 mg Q12HR ORAL 02/14/19 21:00 03/16/19 20:59 03/01/19 09:02 Pantoprazole (Protonix) 40 mg BID ORAL 02/15/19 09:00 03/17/19 08:59 03/01/19 09:02 Polyethylene Glycol (Miralax) 17 gm BEDTIME ORAL 02/23/19 21:00 03/25/19 20:59 02/28/19 20:53 Thiamine HCl (Vitamin B1) 100 mg DAILY ORAL 02/15/19 09:00 03/17/19 08:59 03/01/19 09:02 Last 24 Hour Vital Signs Date Time Temp Pulse Resp B/P (MAP) Pulse Ox O2 Delivery O2 Flow Rate FiO2 03/01/19 12:00 98.3 79 19 130/70 (90) 97 03/01/19 09:02 91 155/69 03/01/19 09:00 Room Air 03/01/19 08:00 97.0 94 18 157/71 (99) 97 03/01/19 04:00 97.4 90 16 116/80 (92) 95 03/01/19 00:00 97.6 99 15 140/83 (102) 96 02/28/19 20:53 105 146/81 02/28/19 20:05 Room Air 02/28/19 20:00 97.1 105 16 146/81 (102) 95 02/28/19 16:00 98.1 95 17 140/72 (94) 98 02/28/19 12:18 98.0 94 17 122/74 (90) 94 02/28/19 08:12 94 138/80 02/28/19 08:00 97.9 94 18 140/82 (101) 94 02/28/19 07:50 Room Air 02/28/19 04:00 98.0 94 16 138/80 (99) 92 02/28/19 00:00 97.6 86 17 140/78 (98) 96 02/27/19 21:00 Room Air 02/27/19 20:14 100 157/84 02/27/19 20:00 98.0 100 16 157/84 (108) 100 02/27/19 16:02 98.6 97 16 134/73 (93) 94 Intake and Output 02/28/19 03/01/19 19:00 07:00 Intake Total 800 ml 360 ml Output Total 700 ml Balance 100 ml 360 ml Intake Oral 800 ml 360 ml Output Urine Total 700 ml # Voids 3 4 # Bowel Movements 1 Labs Test 02/27/19 06:30 White Blood Count 8.0 K/UL (4.8-10.8) Red Blood Count 4.48 M/UL (4.70-6.10) Hemoglobin 14.1 G/DL (14.2-18.0) Hematocrit 42.3 % (42.0-52.0) Mean Corpuscular Volume 94 FL (80-99) Mean Corpuscular Hemoglobin 31.4 PG (27.0-31.0) Mean Corpuscular Hemoglobin Concent 33.3 G/DL (32.0-36.0) Red Cell Distribution Width 14.9 % (11.6-14.8) Platelet Count 374 K/UL (150-450) Mean Platelet Volume 4.8 FL (6.5-10.1) Neutrophils (%) (Auto) 56.4 % (45.0-75.0) Lymphocytes (%) (Auto) 29.5 % (20.0-45.0) Monocytes (%) (Auto) 9.5 % (1.0-10.0) Eosinophils (%) (Auto) 3.2 % (0.0-3.0) Basophils (%) (Auto) 1.4 % (0.0-2.0) Sodium Level 141 MMOL/L (136-145) Potassium Level 5.0 MMOL/L (3.5-5.1) Chloride Level 105 MMOL/L (98-107) Carbon Dioxide Level 33 MMOL/L (21-32) Anion Gap 3 mmol/L (5-15) Blood Urea Nitrogen 13 mg/dL (7-18) Creatinine 0.8 MG/DL (0.55-1.30) Estimat Glomerular Filtration Rate mL/min (>60) Glucose Level 118 MG/DL (74-106) Calcium Level 9.1 MG/DL (8.5-10.1) Height (Feet): 5 Height (Inches): 5.00 Weight (Pounds): 142 Objective General Appearance: no acute distress HEENT: mucous membranes moist Respiratory/Chest: lungs clear, 2l nc Cardiovascular: normal rate Abdomen: soft, non tender Extremities: no edema Neurologic/Psychiatric: alert, responsive Hal Smith MD Mar 01, 2019 15:42
[2019-03-01 16:00] VITALS: BP 141/82
--- NOTE | 2019-03-01 17:55 | Cardiac Electrophysiology PN ---
Assessment/Plan Assessment/Plan 1. Sinus tachycardia due to DKA and GI bleed. No atrial fibrillation or SVT. EF 60%. 2. Hypertension. On Lopressor 25 bid 3. S/P Respiratory failure, Extubated 4. Acute GI bleed, endoscopy by Dr. Conn showed duodenal ulcer. S/P 4 units of blood transfusion. No indication for surgery per Dr. Baumann 5. S/P Diabetic ketoacidosis, on insulin 6. Homelessness and uninsured Difficulty placement DW RN Subjective Subjective No CP or SOB. Placement pending Objective Last 24 Hour Vital Signs Date Time Temp Pulse Resp B/P (MAP) Pulse Ox O2 Delivery O2 Flow Rate FiO2 03/01/19 16:00 99.0 89 21 141/82 (101) 97 03/01/19 12:00 98.3 79 19 130/70 (90) 97 03/01/19 09:02 91 155/69 03/01/19 09:00 Room Air 03/01/19 08:00 97.0 94 18 157/71 (99) 97 03/01/19 04:00 97.4 90 16 116/80 (92) 95 03/01/19 00:00 97.6 99 15 140/83 (102) 96 02/28/19 20:53 105 146/81 02/28/19 20:05 Room Air 02/28/19 20:00 97.1 105 16 146/81 (102) 95 Intake and Output 02/28/19 03/01/19 19:00 07:00 Intake Total 800 ml 360 ml Output Total 700 ml Balance 100 ml 360 ml Intake Oral 800 ml 360 ml Output Urine Total 700 ml # Voids 3 4 # Bowel Movements 1 Objective HEAD AND NECK: No JVD. LUNGS: Decreased breath sounds. CARDIOVASCULAR: Nl S1 and S2 with no gallop. ABDOMEN: Soft. EXTREMITIES: No pitting edema Matthew Kent MD Mar 01, 2019 17:55
--- NOTE | 2019-03-01 18:00 | NUR ---
NURSE NOTES: Patient resting,no concerns at this time,ate dinner.Call light within reach.
--- NOTE | 2019-03-01 19:32 | NUR ---
HAND-OFF: Report given to Adriana ALEGRIA.
[2019-03-01 20:00] VITALS: BP 139/75
[2019-03-01] MEDS: Miralax 17gm pkt ORAL SCH (21:00)
--- NOTE | 2019-03-01 21:02 | NUR ---
NURSE NOTES: RECIEVED PT. IN BED ASLEEP BUT EASILY AROUSABLE NO S/S OF DISTRESS NOTED .AFEBRILE .WILL CONTINUE W/ PLAN OF CARE.
[2019-03-02] VITALS (7 sets, daily range): BP systolic 123–158; BP diastolic 71–83
--- NOTE | 2019-03-02 03:00 | Progress Note ---
DATE: 02/28/2019 SUBJECTIVE: No acute changes. We are waiting for placement. The patient no acute problems at this point. Hemodynamically stable. ASSESSMENT AND PLAN: Diabetic ketoacidosis has resolved, status post intubation, very poor hygiene, . Harvey Gee M.D. DR: Jaymie JOB#: [id number] CC:
--- NOTE | 2019-03-02 07:19 | NUR ---
HAND-OFF: Report given to KEVIN ALEGRIA.
--- NOTE | 2019-03-02 07:36 | NUR ---
NURSE NOTES: Patient is awake and alert,sitting up in bed and eating breakfast,call light within reach.
--- NOTE | 2019-03-02 08:08 | Hematology/Onc Progress Note ---
Assessment/Plan Assessment/Plan # Anemia due to underlying gi bleed, sp egd which showed duodenal ulceration, failed hemostasis --> continue ppi --> coags slightly elevated, nsider vit K if persistent bleeding --> transfuse if hgb <7 --> no indication for surgery --> trend hgb 13-->11.1-->11->12-->13.7->13.3-->13.8 --> if hgb downtrends may need ex lap per surg # Thrombocytosis and Leukocytosis with Sepsis, systemic inflammatory response syndrome --> monitor for improvement --> is on abx, zosyn per id--> amoxicillin, clarithomycin --> per id recs --> wbc 16--.14-->14-->11.7-->6.9 --> trend plt 465k-->443k # DKA with Uncontrolled DM --> on insulin sliding scale --> endo recs reviewed # Lactic acidosis, --> trend as needed, on ivf, thiamine, folate # Acute renal failure that has been improving. --> sp fluids # Onychomycosis and tinea pedis, --> podiatry consulted # Elevated transaminase level due to etoh use --> trend as needed # Acute respiratory failure --> now extubated, breathing better --> on 2l NC # Homeless ness --> for placement, will leave scripts, may be placed in homeless [facility] The timing of this note does not necessarily reflect the time of the patient was seen. GREATLY APPRECIATE CONSULTATION. Subjective Allergies: Coded Allergies: No Known Allergies (Unverified , 02/07/19) Subjective 02/09: remains intubated, on vent, able to respond, in norwegian, to commands weaning today, h/h reviewed 02/10: icu, extubated, labs reviewed 02/12: on 2l nc, h/h reviewed, no bleeding in sdu 02/13: on nc, no events, no blding, a+o x4 02/15: discharged, passing gas, no f/c, no major changes 02/16: no fever or chills, on abx, resting, no acute events 02/17: no f/c, vs stable, no distress, denies pain, on abx 8/31: no major changes, a+o x4, no bleeding or chills 02/20: labs reviewed, no bleeding, no f/c, no bleeding 02/22: no f/c, no sob, denies pain, off abx 02/23: no bleeding, no chills, no night sweats, no major changes 02/24: no f/c, on abx, no complaints, labs reviewed 02/25: no complaints, no f/c, stable 02/27: no f/c, has been eating ,labs noted 02/28: no f/c, vs stable, on abx, no distress, fall precaution 03/01: no events to report, no bleeding, no chils 03/02: no acute events, no f/c, vs stable, remains on abx Objective Objective Current Medications Medications (Trade) Dose Ordered Sig/Manish Route PRN Reason Start Time Stop Time Status Last Admin Dose Admin Acetaminophen (Tylenol) 650 mg Q6H PRN ORAL Mild Pain/Temp > 100.5 02/14/19 18:30 03/10/19 18:29 02/21/19 13:21 Amoxicillin (Amoxil) 1,000 mg BID@0630,1630 ORAL 02/23/19 11:30 03/02/19 11:29 03/02/19 06:05 Clarithromycin (Biaxin) 500 mg EVERY 12 HOURS ORAL 02/23/19 11:30 03/02/19 11:29 03/01/19 22:35 Dextrose (Dextrose 50%) 25 ml Q30M PRN IV Hypoglycemia 02/14/19 08:30 03/10/19 08:29 Dextrose (Dextrose 50%) 50 ml Q30M PRN IV Hypoglycemia 02/14/19 18:30 03/10/19 18:29 Docusate Sodium (Colace) 100 mg THREE TIMES A DAY ORAL 02/23/19 13:00 03/25/19 12:59 03/01/19 18:31 Gabapentin (Neurontin) 300 mg BID ORAL 02/22/19 18:00 03/24/19 17:59 03/01/19 18:29 Hydralazine HCl (Apresoline) 25 mg Q4H PRN ORAL bp over 160 syst 02/14/19 18:30 03/16/19 18:29 02/20/19 23:53 Metoprolol Tartrate (Lopressor) 25 mg Q12HR ORAL 02/14/19 21:00 03/16/19 20:59 03/01/19 22:35 Pantoprazole (Protonix) 40 mg BID ORAL 02/15/19 09:00 03/17/19 08:59 03/01/19 18:29 Polyethylene Glycol (Miralax) 17 gm BEDTIME ORAL 02/23/19 21:00 03/25/19 20:59 02/28/19 20:53 Thiamine HCl (Vitamin B1) 100 mg DAILY ORAL 02/15/19 09:00 03/17/19 08:59 03/01/19 09:02 Last 24 Hour Vital Signs Date Time Temp Pulse Resp B/P (MAP) Pulse Ox O2 Delivery O2 Flow Rate FiO2 03/02/19 04:00 96.1 82 18 158/80 (106) 100 03/02/19 00:00 98.2 95 19 155/72 (99) 98 03/01/19 22:35 93 139/75 03/01/19 21:00 Room Air 03/01/19 20:00 98.1 93 20 139/75 (96) 99 03/01/19 16:00 99.0 89 21 141/82 (101) 97 03/01/19 12:00 98.3 79 19 130/70 (90) 97 03/01/19 09:02 91 155/69 03/01/19 09:00 Room Air 03/01/19 08:00 97.0 94 18 157/71 (99) 97 03/01/19 04:00 97.4 90 16 116/80 (92) 95 03/01/19 00:00 97.6 99 15 140/83 (102) 96 02/28/19 20:53 105 146/81 02/28/19 20:05 Room Air 02/28/19 20:00 97.1 105 16 146/81 (102) 95 02/28/19 16:00 98.1 95 17 140/72 (94) 98 02/28/19 12:18 98.0 94 17 122/74 (90) 94 02/28/19 08:12 94 138/80 Intake and Output 03/01/19 03/02/19 18:59 06:59 Intake Total 720 ml Output Total 1100 ml 600 ml Balance -380 ml -600 ml Intake Oral 720 ml Output Urine Total 1100 ml 600 ml # Voids 3 3 # Bowel Movements 1 Height (Feet): 5 Height (Inches): 5.00 Weight (Pounds): 142 Objective General Appearance: no acute distress HEENT: mucous membranes moist Respiratory/Chest: lungs clear, 2l nc Cardiovascular: normal rate Abdomen: soft, non tender Extremities: no edema Neurologic/Psychiatric: alert, responsive Hal Smith MD Mar 02, 2019 08:08
[2019-03-02] MEDS: Docusate 100mg cap ORAL SCH ×3 (09:03→18:48)
[2019-03-02] MEDS: Clarithromycin 500mg tab ORAL SCH (09:03)
[2019-03-02] MEDS: Thiamine 100mg tab ORAL SCH (09:04)
[2019-03-02] MEDS: Metoprolol 25mg tab ORAL SCH ×2 (09:04→21:36)
--- NOTE | 2019-03-02 10:18 | Nephrology Progress Note ---
Assessment/Plan Problem List: (1) ARF (acute renal failure) (2) Dehydration (3) Acute respiratory failure (4) Esophageal varices (5) GIB (gastrointestinal bleeding) Assessment Acute renal failure , Cr lower now intubated Dehydration Hyperglycemia high Lactate level esophageal bleed GI bleed . Plan tolerating diet- switch meds to po as possible- in med surg K and Phos and mag supplement as needed per GI- Monitor lytes and renal parameters PT Subjective ROS Limited/Unobtainable: No Objective Objective Last 24 Hour Vital Signs Date Time Temp Pulse Resp B/P (MAP) Pulse Ox O2 Delivery O2 Flow Rate FiO2 03/02/19 09:04 89 138/75 03/02/19 04:00 96.1 82 18 158/80 (106) 100 03/02/19 00:00 98.2 95 19 155/72 (99) 98 03/01/19 22:35 93 139/75 03/01/19 21:00 Room Air 03/01/19 20:00 98.1 93 20 139/75 (96) 99 03/01/19 16:00 99.0 89 21 141/82 (101) 97 03/01/19 12:00 98.3 79 19 130/70 (90) 97 Intake and Output 03/01/19 03/02/19 19:00 07:00 Intake Total 720 ml Output Total 1100 ml 600 ml Balance -380 ml -600 ml Intake Oral 720 ml Output Urine Total 1100 ml 600 ml # Voids 3 3 # Bowel Movements 1 Height (Feet): 5 Height (Inches): 5.00 Weight (Pounds): 142 General Appearance: no apparent distress Objective no change Arturo Cruz MD Mar 02, 2019 10:18
--- NOTE | 2019-03-02 11:27 | NUR ---
Social Service Note KELLY faxed updated PT notes to [facility] [phone] (p) [phone] (f). KELLY spoke with [facility] and patient is 4th on the wait list for a bed. Currently no beds available at this time. W/C delivered today. Patient will also need to dc with [facility] and prescriptions. Will continue to follow up.
--- NOTE | 2019-03-02 12:07 | Infectious Diseases Prog Note ---
Assessment/Plan Assessment/Plan IMPRESSION: Sepsis, resolved GI bleeding Duodenal ulcer. DM, off insulin Lactic acidosis, Acute renal failure resolved Onychomycosis tinea pedis treated anemia, received blood transfusion, Elevated transaminase level. Acute respiratory failure resolved H. pylori infection Diabetic neuropathy RECOMMENDATION: Observe off antibiotic Waiting for placement Subjective ROS Limited/Unobtainable: Yes Constitutional: Reports: no symptoms Respiratory: Reports: no symptoms Gastrointestinal/Abdominal: Reports: no symptoms Musculoskeletal: Reports: pain, other - in feet Allergies: Coded Allergies: No Known Allergies (Unverified , 02/07/19) Objective Vital Signs Last 24 Hour Vital Signs Date Time Temp Pulse Resp B/P (MAP) Pulse Ox O2 Delivery O2 Flow Rate FiO2 03/02/19 09:04 89 138/75 03/02/19 09:00 Room Air 03/02/19 08:00 97.0 86 18 130/83 (99) 97 03/02/19 04:00 96.1 82 18 158/80 (106) 100 03/02/19 00:00 98.2 95 19 155/72 (99) 98 03/01/19 22:35 93 139/75 03/01/19 21:00 Room Air 03/01/19 20:00 98.1 93 20 139/75 (96) 99 03/01/19 16:00 99.0 89 21 141/82 (101) 97 Height (Feet): 5 Height (Inches): 5.00 Weight (Pounds): 142 General Appearance: no acute distress HEENT: mucous membranes moist Respiratory/Chest: lungs clear Cardiovascular: normal rate Abdomen: soft, non tender Extremities: no edema Neurologic/Psychiatric: alert, responsive Current Medications Medications (Trade) Dose Ordered Sig/Manish Route PRN Reason Start Time Stop Time Status Last Admin Dose Admin Acetaminophen (Tylenol) 650 mg Q6H PRN ORAL Mild Pain/Temp > 100.5 02/14/19 18:30 03/10/19 18:29 02/21/19 13:21 Dextrose (Dextrose 50%) 25 ml Q30M PRN IV Hypoglycemia 02/14/19 08:30 03/10/19 08:29 Dextrose (Dextrose 50%) 50 ml Q30M PRN IV Hypoglycemia 02/14/19 18:30 03/10/19 18:29 Docusate Sodium (Colace) 100 mg THREE TIMES A DAY ORAL 02/23/19 13:00 03/25/19 12:59 03/02/19 09:03 Gabapentin (Neurontin) 300 mg BID ORAL 02/22/19 18:00 03/24/19 17:59 03/02/19 09:04 Hydralazine HCl (Apresoline) 25 mg Q4H PRN ORAL bp over 160 syst 02/14/19 18:30 03/16/19 18:29 02/20/19 23:53 Metoprolol Tartrate (Lopressor) 25 mg Q12HR ORAL 02/14/19 21:00 03/16/19 20:59 03/02/19 09:04 Pantoprazole (Protonix) 40 mg BID ORAL 02/15/19 09:00 03/17/19 08:59 03/02/19 09:04 Polyethylene Glycol (Miralax) 17 gm BEDTIME ORAL 02/23/19 21:00 03/25/19 20:59 02/28/19 20:53 Thiamine HCl (Vitamin B1) 100 mg DAILY ORAL 02/15/19 09:00 03/17/19 08:59 03/02/19 09:04 Fazal Basilio MD Mar 02, 2019 12:07
--- NOTE | 2019-03-02 13:31 | General Progress Note ---
Assessment/Plan Problem List: (1) GIB (gastrointestinal bleeding) ICD Codes: K92.2 - Gastrointestinal hemorrhage, unspecified SNOMED: 94519866 Status: stable, progressing Assessment/Plan: stable H&H on diet cont protonix treat for HP no recurrent bleed Subjective ROS Limited/Unobtainable: Yes Allergies: Coded Allergies: No Known Allergies (Unverified , 02/07/19) Objective Last 24 Hour Vital Signs Date Time Temp Pulse Resp B/P (MAP) Pulse Ox O2 Delivery O2 Flow Rate FiO2 03/02/19 12:12 97.0 86 18 150/83 (105) 99 03/02/19 09:04 89 138/75 03/02/19 09:00 Room Air 03/02/19 08:00 97.0 86 18 130/83 (99) 97 03/02/19 04:00 96.1 82 18 158/80 (106) 100 03/02/19 00:00 98.2 95 19 155/72 (99) 98 03/01/19 22:35 93 139/75 03/01/19 21:00 Room Air 03/01/19 20:00 98.1 93 20 139/75 (96) 99 03/01/19 16:00 99.0 89 21 141/82 (101) 97 Intake and Output 03/01/19 03/02/19 19:00 07:00 Intake Total 720 ml Output Total 1100 ml 600 ml Balance -380 ml -600 ml Intake Oral 720 ml Output Urine Total 1100 ml 600 ml # Voids 3 3 # Bowel Movements 1 Height (Feet): 5 Height (Inches): 5.00 Weight (Pounds): 142 General Appearance: no apparent distress Neck: normal alignment Cardiovascular: normal rate Respiratory/Chest: lungs clear Abdomen: normal bowel sounds, non tender, soft Extremities: non-tender Kj Conn MD Mar 02, 2019 13:31
--- NOTE | 2019-03-02 14:41 | Surgery Progress Note ---
Surgery Progress Note Subjective Symptoms: improved, tolerating diet, voiding well, passing flatus, BM Objective Last 24 Hour Vital Signs Date Time Temp Pulse Resp B/P (MAP) Pulse Ox O2 Delivery O2 Flow Rate FiO2 03/02/19 12:12 97.0 86 18 150/83 (105) 99 03/02/19 09:04 89 138/75 03/02/19 09:00 Room Air 03/02/19 08:00 97.0 86 18 130/83 (99) 97 03/02/19 04:00 96.1 82 18 158/80 (106) 100 03/02/19 00:00 98.2 95 19 155/72 (99) 98 03/01/19 22:35 93 139/75 03/01/19 21:00 Room Air 03/01/19 20:00 98.1 93 20 139/75 (96) 99 03/01/19 16:00 99.0 89 21 141/82 (101) 97 I&O Intake and Output 03/01/19 03/02/19 19:00 07:00 Intake Total 720 ml Output Total 1100 ml 600 ml Balance -380 ml -600 ml Intake Oral 720 ml Output Urine Total 1100 ml 600 ml # Voids 3 3 # Bowel Movements 1 Cardiovascular: RSR Respiratory: clear Abdomen: soft, flat, non-tender, present bowel sounds, non-distended Extremities: no edema, no tenderness, no cyanosis Plan Problems: (1) GIB (gastrointestinal bleeding) Assessment & Plan: 69-year-old male with acute gastrointestinal hemorrhage secondary to large duodenal ulcer. Patient had endoscopy with hemostasis just now identified a large ulcer with potential to rebleed. Need to control patient's hypertension and allow for even permissive hypotension if necessary h/h stable overall doing better labs stable now exam stable Will follow and be available in case patient rebleeds at which time he will require an exploration thank you for allowing me to participate in patient's care d/c planning pending placement will follow with recommendations Adelso Baumann Mar 02, 2019 14:41
--- NOTE | 2019-03-02 15:30 | NUR ---
PRECISION ASSEMBLERRESEARCH TEST ENGINE OPERATOR PRECISION ASSEMBLERRESEARCH TEST ENGINE OPERATOR SI: IAN Monet 97.0 HR 86 RR 18 B/P 150/83 IS: NEURONTIN PO THIAMINE PO PROTONIX PO MED/SURG STATUS
--- NOTE | 2019-03-02 18:25 | Cardiac Electrophysiology PN ---
Assessment/Plan Assessment/Plan 1. Sinus tachycardia due to DKA and GI bleed. No atrial fibrillation or SVT. EF 60%. 2. Hypertension. On Lopressor 25 bid 3. S/P Respiratory failure, Extubated 4. Acute GI bleed, endoscopy by Dr. Conn showed duodenal ulcer. S/P 4 units of blood transfusion. No indication for surgery per Dr. Baumann 5. S/P Diabetic ketoacidosis, on insulin 6. Homeless and uninsured making placement difficult DW RN Subjective Subjective Alert in NAD.. Placement pending Objective Last 24 Hour Vital Signs Date Time Temp Pulse Resp B/P (MAP) Pulse Ox O2 Delivery O2 Flow Rate FiO2 03/02/19 12:12 97.0 86 18 150/83 (105) 99 03/02/19 09:04 89 138/75 03/02/19 09:00 Room Air 03/02/19 08:00 97.0 86 18 130/83 (99) 97 03/02/19 04:00 96.1 82 18 158/80 (106) 100 03/02/19 00:00 98.2 95 19 155/72 (99) 98 03/01/19 22:35 93 139/75 03/01/19 21:00 Room Air 03/01/19 20:00 98.1 93 20 139/75 (96) 99 Intake and Output 03/01/19 03/02/19 19:00 07:00 Intake Total 720 ml Output Total 1100 ml 600 ml Balance -380 ml -600 ml Intake Oral 720 ml Output Urine Total 1100 ml 600 ml # Voids 3 3 # Bowel Movements 1 Objective HEAD AND NECK: No JVD. LUNGS: Decreased breath sounds. CARDIOVASCULAR: Nl S1 and S2 with no gallop. ABDOMEN: Soft. EXTREMITIES: No pitting edema Matthew Kent MD Mar 02, 2019 18:24
--- NOTE | 2019-03-02 18:30 | NUR ---
NURSE NOTES: Patient resting,no complaints at this time, call light within reach.
--- NOTE | 2019-03-02 19:25 | NUR ---
HAND-OFF: HAND-OFF: Report given to Sherrie ALEGRIA.
--- NOTE | 2019-03-02 19:40 | NUR ---
NURSE NOTES: Received pt resting in bed. AAO x 4, on room air. IV site intact and patent. Pt refused SCD. Walker is at bedside. No c/o pain, no acute distress noted at this time. Bed locked, lowest position, alarm on, side rails up x 2, call light within reach. Will continue to monitor.
--- NOTE | 2019-03-02 20:45 | General Progress Note ---
Assessment/Plan Problem List: (1) ARF (acute renal failure) ICD Codes: N17.9 - Acute kidney failure, unspecified SNOMED: 07690240 Qualifiers: Qualified Codes: N17.9 - Acute kidney failure, unspecified (2) Sepsis ICD Codes: A41.9 - Sepsis, unspecified organism SNOMED: 50706333, 59770519 Qualifiers: Qualified Codes: A41.9 - Sepsis, unspecified organism; R65.20 - Severe sepsis without septic shock; N17.9 - Acute kidney failure, unspecified (3) Lactic acidosis ICD Codes: E87.2 - Acidosis SNOMED: 87132771, 60483823 (4) Anemia ICD Codes: D64.9 - Anemia, unspecified SNOMED: 189172485 (5) DKA (diabetic ketoacidoses) ICD Codes: E11.10 - Type 2 diabetes mellitus with ketoacidosis without coma SNOMED: 287855328, 25195802 Qualifiers: Qualified Codes: E13.10 - Other specified diabetes mellitus with ketoacidosis without coma (6) GIB (gastrointestinal bleeding) ICD Codes: K92.2 - Gastrointestinal hemorrhage, unspecified SNOMED: 47797483 (7) Acute respiratory failure ICD Codes: J96.00 - Acute respiratory failure, unspecified whether with hypoxia or hypercapnia SNOMED: 49747666 (8) Dehydration ICD Codes: E86.0 - Dehydration SNOMED: 04969980, 29720735 Status: stable, progressing Assessment/Plan: niddm s/o respiratory failure sepsis gi bleed check h/h needs placement Subjective ROS Limited/Unobtainable: Yes Constitutional: Reports: no symptoms Allergies: Coded Allergies: No Known Allergies (Unverified , 02/07/19) Objective Last 24 Hour Vital Signs Date Time Temp Pulse Resp B/P (MAP) Pulse Ox O2 Delivery O2 Flow Rate FiO2 03/02/19 12:12 97.0 86 18 150/83 (105) 99 03/02/19 09:04 89 138/75 03/02/19 09:00 Room Air 03/02/19 08:00 97.0 86 18 130/83 (99) 97 03/02/19 04:00 96.1 82 18 158/80 (106) 100 03/02/19 00:00 98.2 95 19 155/72 (99) 98 03/01/19 22:35 93 139/75 03/01/19 21:00 Room Air Intake and Output 03/01/19 03/02/19 19:00 07:00 Intake Total 720 ml Output Total 1100 ml 600 ml Balance -380 ml -600 ml Intake Oral 720 ml Output Urine Total 1100 ml 600 ml # Voids 3 3 # Bowel Movements 1 Height (Feet): 5 Height (Inches): 5.00 Weight (Pounds): 142 Neck: supple Cardiovascular: normal rate Respiratory/Chest: lungs clear Abdomen: soft Harvey Gee MD Mar 02, 2019 20:45
[2019-03-02] MEDS: Miralax 17gm pkt ORAL SCH (21:35)
[2019-03-03] VITALS: BP 157/70
[2019-03-03 04:00] VITALS: BP 159/66
--- NOTE | 2019-03-03 06:55 | NUR ---
NURSE NOTES: Left message to Senia Murphy that if pt needs prescription for discharge. Waiting for call back.
[2019-03-03 07:18] LABS: BASOPHILS % (AUTO) 1.2 % (0.0-2.0); HEMATOCRIT 40.8 % (42.0-52.0); HEMOGLOBIN 13.6 G/DL (14.2-18.0); LYMPHOCYTES % (AUTO) 37.7 % (20.0-45.0); MEAN CORPUSCULAR VOLUME 95 FL (80-99); MONOCYTES % (AUTO) 8.4 % (1.0-10.0); NEUTROPHILS % (AUTO) 48.7 % (45.0-75.0); PLATELET COUNT 329 K/UL (150-450); RED BLOOD COUNT 4.29 M/UL (4.70-6.10); WHITE BLOOD COUNT 7.5 K/UL (4.8-10.8)
--- NOTE | 2019-03-03 07:22 | Cardiac Electrophysiology PN ---
Assessment/Plan Assessment/Plan 1. S/P Sinus tachycardia due to DKA and GI bleed. Resolved No atrial fibrillation or SVT. EF 60%. 2. Hypertension. On Lopressor 25 bid 3. S/P Respiratory failure, Extubated 4. Acute GI bleed, endoscopy by Dr. Conn showed duodenal ulcer. S/P 4 units of blood transfusion. No indication for surgery per Dr. Baumann 5. S/P Diabetic ketoacidosis, on insulin 6. Homeless and uninsured making placement difficult DW RN Subjective Subjective Alert in NAD, no events.. Placement pending Objective Last 24 Hour Vital Signs Date Time Temp Pulse Resp B/P (MAP) Pulse Ox O2 Delivery O2 Flow Rate FiO2 03/03/19 04:00 97.7 57 18 159/66 (97) 100 03/03/19 00:00 97.8 81 20 157/70 (99) 99 03/02/19 21:36 83 123/71 03/02/19 21:00 Room Air 03/02/19 21:00 98.2 83 20 123/71 (88) 98 03/02/19 20:00 98.2 83 20 123/71 (88) 98 03/02/19 16:00 97.5 86 18 138/82 (100) 98 03/02/19 12:12 97.0 86 18 150/83 (105) 99 03/02/19 09:04 89 138/75 03/02/19 09:00 Room Air 03/02/19 08:00 97.0 86 18 130/83 (99) 97 Intake and Output 03/02/19 03/03/19 18:59 06:59 Intake Total 1460 ml Output Total 1200 ml Balance 1460 ml -1200 ml Intake Oral 1460 ml Output Urine Total 1200 ml # Voids 8 2 # Bowel Movements 1 Laboratory Tests Test 03/03/19 04:51 White Blood Count Pending Red Blood Count Pending Hemoglobin Pending Hematocrit Pending Mean Corpuscular Volume Pending Mean Corpuscular Hemoglobin Pending Mean Corpuscular Hemoglobin Concent Pending Red Cell Distribution Width Pending Platelet Count Pending Mean Platelet Volume Pending Neutrophils (%) (Auto) Pending Lymphocytes (%) (Auto) Pending Monocytes (%) (Auto) Pending Eosinophils (%) (Auto) Pending Basophils (%) (Auto) Pending Sodium Level Pending Potassium Level Pending Chloride Level Pending Carbon Dioxide Level Pending Blood Urea Nitrogen Pending Creatinine Pending Estimat Glomerular Filtration Rate Pending Glucose Level Pending Uric Acid Pending Calcium Level Pending Phosphorus Level Pending Magnesium Level Pending Total Bilirubin Pending Aspartate Amino Transf (AST/SGOT) Pending Alanine Aminotransferase (ALT/SGPT) Pending Alkaline Phosphatase Pending Total Protein Pending Albumin Pending Globulin Pending Objective HEAD AND NECK: No JVD. LUNGS: Decreased breath sounds. CARDIOVASCULAR: Nl S1 and S2 with no gallop. ABDOMEN: Soft. EXTREMITIES: No pitting edema Matthew Kent MD Mar 03, 2019 07:22
--- NOTE | 2019-03-03 07:53 | NUR ---
HAND-OFF: Report given to RAJI Spencer.
[2019-03-03 08:00] VITALS: BP 153/66
[2019-03-03 08:06] LABS: ALANINE AMINOTRANSFERASE 22 U/L (12-78); ALBUMIN 2.8 G/DL (3.4-5.0); ALBUMIN/GLOBULIN RATIO 0.7 (1.0-2.7); ALKALINE PHOSPHATASE 68 U/L (46-116); ANION GAP 6 mmol/L (5-15); ASPARTATE AMINO TRANSFERASE 19 U/L (15-37); BILIRUBIN,TOTAL 0.4 MG/DL (0.2-1.0); BLOOD UREA NITROGEN 14 mg/dL (7-18); CARBON DIOXIDE 31 MMOL/L (21-32); CHLORIDE 104 MMOL/L (98-107); CREATININE 0.7 MG/DL (0.55-1.30); PHOSPHORUS 3.3 MG/DL (2.5-4.9); POTASSIUM 3.8 MMOL/L (3.5-5.1); SODIUM 141 MMOL/L (136-145)
[2019-03-03] MEDS: Docusate 100mg cap ORAL SCH ×3 (08:18→17:02)
[2019-03-03] MEDS: Thiamine 100mg tab ORAL SCH (08:18)
[2019-03-03] MEDS: Metoprolol 25mg tab ORAL SCH (08:18)
--- NOTE | 2019-03-03 08:20 | Nephrology Progress Note ---
Assessment/Plan Problem List: (1) ARF (acute renal failure) (2) Dehydration (3) Acute respiratory failure (4) Esophageal varices (5) GIB (gastrointestinal bleeding) Assessment Acute renal failure , Cr lower now intubated Dehydration Hyperglycemia high Lactate level esophageal bleed GI bleed . Plan tolerating diet- switch meds to po as possible- in med surg K and Phos and mag supplement as needed per GI- Monitor lytes and renal parameters PT Subjective ROS Limited/Unobtainable: No Objective Objective Last 24 Hour Vital Signs Date Time Temp Pulse Resp B/P (MAP) Pulse Ox O2 Delivery O2 Flow Rate FiO2 03/03/19 08:18 70 153/66 03/03/19 08:00 97.7 70 18 153/66 (95) 100 03/03/19 04:00 97.7 57 18 159/66 (97) 100 03/03/19 00:00 97.8 81 20 157/70 (99) 99 03/02/19 21:36 83 123/71 03/02/19 21:00 Room Air 03/02/19 21:00 98.2 83 20 123/71 (88) 98 03/02/19 20:00 98.2 83 20 123/71 (88) 98 03/02/19 16:00 97.5 86 18 138/82 (100) 98 03/02/19 12:12 97.0 86 18 150/83 (105) 99 03/02/19 09:04 89 138/75 03/02/19 09:00 Room Air Intake and Output 03/02/19 03/03/19 18:59 06:59 Intake Total 1460 ml Output Total 1200 ml Balance 1460 ml -1200 ml Intake Oral 1460 ml Output Urine Total 1200 ml # Voids 8 2 # Bowel Movements 1 Laboratory Tests 03/03/19 04:51: White Blood Count 7.5, Red Blood Count 4.29L, Hemoglobin 13.6L, Hematocrit 40.8L , Mean Corpuscular Volume 95, Mean Corpuscular Hemoglobin 31.6H, Mean Corpuscular Hemoglobin Concent 33.3, Red Cell Distribution Width 15.0H, Platelet Count 329, Mean Platelet Volume 4.9L, Neutrophils (%) (Auto) 48.7, Lymphocytes (%) (Auto) 37.7, Monocytes (%) (Auto) 8.4, Eosinophils (%) (Auto) 4.0H, Basophils (%) (Auto) 1.2, Sodium Level 141, Potassium Level 3.8, Chloride Level 104, Carbon Dioxide Level 31, Anion Gap 6, Blood Urea Nitrogen 14, Creatinine 0.7, Estimat Glomerular Filtration Rate , Glucose Level 96, Uric Acid 3.4, Calcium Level 9.0, Phosphorus Level 3.3, Magnesium Level 1.7L, Total Bilirubin 0.4, Aspartate Amino Transf (AST/SGOT) 19, Alanine Aminotransferase ( ALT/SGPT) 22, Alkaline Phosphatase 68, Total Protein 6.7, Albumin 2.8L, Globulin 3.9, Albumin/Globulin Ratio 0.7L Height (Feet): 5 Height (Inches): 5.00 Weight (Pounds): 142 General Appearance: no apparent distress Objective no change Arturo Cruz MD Mar 03, 2019 08:20
--- NOTE | 2019-03-03 08:42 | NUR ---
NURSE NOTES: pt awake alert, oriented, no sob. no c/o pain. call light within reach. bed in lowest position, locked
[2019-03-03] MEDS: Magnesium Oxide 400mg tab ORAL SCH ×3 (09:10→17:01)
--- NOTE | 2019-03-03 09:36 | General Progress Note ---
Assessment/Plan Problem List: (1) GIB (gastrointestinal bleeding) ICD Codes: K92.2 - Gastrointestinal hemorrhage, unspecified SNOMED: 12024209 Status: stable, progressing Assessment/Plan: stable H&H on diet cont protonix treat for HP no recurrent bleed Subjective ROS Limited/Unobtainable: Yes Allergies: Coded Allergies: No Known Allergies (Unverified , 02/07/19) Objective Last 24 Hour Vital Signs Date Time Temp Pulse Resp B/P (MAP) Pulse Ox O2 Delivery O2 Flow Rate FiO2 03/03/19 08:51 Room Air 03/03/19 08:18 70 153/66 03/03/19 08:00 97.7 70 18 153/66 (95) 100 03/03/19 04:00 97.7 57 18 159/66 (97) 100 03/03/19 00:00 97.8 81 20 157/70 (99) 99 03/02/19 21:36 83 123/71 03/02/19 21:00 Room Air 03/02/19 21:00 98.2 83 20 123/71 (88) 98 03/02/19 20:00 98.2 83 20 123/71 (88) 98 03/02/19 16:00 97.5 86 18 138/82 (100) 98 03/02/19 12:12 97.0 86 18 150/83 (105) 99 Intake and Output 03/02/19 03/03/19 18:59 06:59 Intake Total 1460 ml Output Total 1200 ml Balance 1460 ml -1200 ml Intake Oral 1460 ml Output Urine Total 1200 ml # Voids 8 2 # Bowel Movements 1 Laboratory Tests 03/03/19 04:51: White Blood Count 7.5, Red Blood Count 4.29L, Hemoglobin 13.6L, Hematocrit 40.8L , Mean Corpuscular Volume 95, Mean Corpuscular Hemoglobin 31.6H, Mean Corpuscular Hemoglobin Concent 33.3, Red Cell Distribution Width 15.0H, Platelet Count 329, Mean Platelet Volume 4.9L, Neutrophils (%) (Auto) 48.7, Lymphocytes (%) (Auto) 37.7, Monocytes (%) (Auto) 8.4, Eosinophils (%) (Auto) 4.0H, Basophils (%) (Auto) 1.2, Sodium Level 141, Potassium Level 3.8, Chloride Level 104, Carbon Dioxide Level 31, Anion Gap 6, Blood Urea Nitrogen 14, Creatinine 0.7, Estimat Glomerular Filtration Rate , Glucose Level 96, Uric Acid 3.4, Calcium Level 9.0, Phosphorus Level 3.3, Magnesium Level 1.7L, Total Bilirubin 0.4, Aspartate Amino Transf (AST/SGOT) 19, Alanine Aminotransferase ( ALT/SGPT) 22, Alkaline Phosphatase 68, Total Protein 6.7, Albumin 2.8L, Globulin 3.9, Albumin/Globulin Ratio 0.7L Height (Feet): 5 Height (Inches): 5.00 Weight (Pounds): 142 General Appearance: alert EENT: normal ENT inspection Neck: supple Cardiovascular: normal rate Respiratory/Chest: decreased breath sounds Abdomen: normal bowel sounds, non tender, soft Extremities: non-tender Kj Conn MD Mar 03, 2019 09:36
[2019-03-03 12:00] VITALS: BP 140/66
--- NOTE | 2019-03-03 12:32 | NUR ---
PT WEEKLY PROGRESS NOTE Patient demonstrating gradual improvement in functional mobility. Patient able to perform bed mobility and transfer activities with FWW and supervision/SBA. Patient able to ambulate 120 ft with supervision/SBA and FWW and able to self propel in a wheelchair 120 ft with supervision. Patient demonstrating improved fluidity of movement, step through gait without spending time in double limb support. Patient able to manage FWW without assistance. Ambulation distance limited at times due to c/o pain bilateral feet but overall has increased. Patient will continue to benefit from skilled inpatient PT intervention to increase strength, balance and safety awareness for improved independence with functional mobility.
--- NOTE | 2019-03-03 15:02 | Hematology/Onc Progress Note ---
Assessment/Plan Assessment/Plan # Anemia due to underlying gi bleed, sp egd which showed duodenal ulceration, failed hemostasis --> continue ppi --> coags slightly elevated, nsider vit K if persistent bleeding --> transfuse if hgb <7 --> no indication for surgery --> trend hgb 13-->11.1-->11->12-->13.7->13.3-->13.8-->13.6 --> if hgb downtrends may need ex lap per surg # Thrombocytosis and Leukocytosis with Sepsis, systemic inflammatory response syndrome --> monitor for improvement --> is on abx, zosyn per id--> amoxicillin, clarithomycin --> per id recs --> wbc 16--.14-->14-->11.7-->6.9-->7.5 --> trend plt 465k-->443k # DKA with Uncontrolled DM --> on insulin sliding scale --> endo recs reviewed # Lactic acidosis, --> trend as needed, on ivf, thiamine, folate # Acute renal failure that has been improving. --> sp fluids # Onychomycosis and tinea pedis, --> podiatry consulted # Elevated transaminase level due to etoh use --> trend as needed # Acute respiratory failure --> now extubated, breathing better --> on 2l NC # Homeless ness --> for placement, will leave scripts, may be placed in [facility] The timing of this note does not necessarily reflect the time of the patient was seen. GREATLY APPRECIATE CONSULTATION. Subjective Allergies: Coded Allergies: No Known Allergies (Unverified , 02/07/19) Subjective 02/09: remains intubated, on vent, able to respond, in greenlandic, to commands weaning today, h/h reviewed 02/10: icu, extubated, labs reviewed 02/12: on 2l nc, h/h reviewed, no bleeding in sdu 02/13: on nc, no events, no blding, a+o x4 02/15: discharged, passing gas, no f/c, no major changes 02/16: no fever or chills, on abx, resting, no acute events 02/17: no f/c, vs stable, no distress, denies pain, on abx 02/18: no major changes, a+o x4, no bleeding or chills 02/20: labs reviewed, no bleeding, no f/c, no bleeding 02/22: no f/c, no sob, denies pain, off abx 02/23: no bleeding, no chills, no night sweats, no major changes 02/24: no f/c, on abx, no complaints, labs reviewed 02/25: no complaints, no f/c, stable 02/27: no f/c, has been eating ,labs noted 02/28: no f/c, vs stable, on abx, no distress, fall precaution 03/01: no events to report, no bleeding, no chils 03/02: no acute events, no f/c, vs stable, remains on abx 03/03: no f/c, no bleeding, no sob, denies pain Objective Objective Current Medications Medications (Trade) Dose Ordered Sig/Manish Route PRN Reason Start Time Stop Time Status Last Admin Dose Admin Acetaminophen (Tylenol) 650 mg Q6H PRN ORAL Mild Pain/Temp > 100.5 02/14/19 18:30 03/10/19 18:29 02/21/19 13:21 Dextrose (Dextrose 50%) 25 ml Q30M PRN IV Hypoglycemia 02/14/19 08:30 03/10/19 08:29 Dextrose (Dextrose 50%) 50 ml Q30M PRN IV Hypoglycemia 02/14/19 18:30 03/10/19 18:29 Docusate Sodium (Colace) 100 mg THREE TIMES A DAY ORAL 02/23/19 13:00 03/25/19 12:59 03/03/19 12:48 Gabapentin (Neurontin) 300 mg BID ORAL 02/22/19 18:00 03/24/19 17:59 03/03/19 08:18 Hydralazine HCl (Apresoline) 25 mg Q4H PRN ORAL bp over 160 syst 02/14/19 18:30 03/16/19 18:29 02/20/19 23:53 Magnesium Oxide (Mag-Ox 400mg) 400 mg THREE TIMES A DAY ORAL 03/03/19 09:00 04/02/19 08:59 03/03/19 12:48 Metoprolol Tartrate (Lopressor) 25 mg Q12HR ORAL 02/14/19 21:00 03/16/19 20:59 03/03/19 08:18 Polyethylene Glycol (Miralax) 17 gm BEDTIME ORAL 02/23/19 21:00 03/25/19 20:59 03/02/19 21:35 Thiamine HCl (Vitamin B1) 100 mg DAILY ORAL 02/15/19 09:00 03/17/19 08:59 03/03/19 08:18 Last 24 Hour Vital Signs Date Time Temp Pulse Resp B/P (MAP) Pulse Ox O2 Delivery O2 Flow Rate FiO2 03/03/19 12:00 97.7 70 18 140/66 (90) 100 03/03/19 08:51 Room Air 03/03/19 08:18 70 153/66 03/03/19 08:00 97.7 70 18 153/66 (95) 100 03/03/19 04:00 97.7 57 18 159/66 (97) 100 03/03/19 00:00 97.8 81 20 157/70 (99) 99 03/02/19 21:36 83 123/71 03/02/19 21:00 Room Air 03/02/19 21:00 98.2 83 20 123/71 (88) 98 03/02/19 20:00 98.2 83 20 123/71 (88) 98 03/02/19 16:00 97.5 86 18 138/82 (100) 98 03/02/19 12:12 97.0 86 18 150/83 (105) 99 03/02/19 09:04 89 138/75 03/02/19 09:00 Room Air 03/02/19 08:00 97.0 86 18 130/83 (99) 97 03/02/19 04:00 96.1 82 18 158/80 (106) 100 03/02/19 00:00 98.2 95 19 155/72 (99) 98 03/01/19 22:35 93 139/75 03/01/19 21:00 Room Air 03/01/19 20:00 98.1 93 20 139/75 (96) 99 03/01/19 16:00 99.0 89 21 141/82 (101) 97 Intake and Output 03/02/19 03/03/19 19:00 07:00 Intake Total 1460 ml Output Total 1200 ml Balance 1460 ml -1200 ml Intake Oral 1460 ml Output Urine Total 1200 ml # Voids 8 2 # Bowel Movements 1 Labs Test 03/03/19 04:51 White Blood Count 7.5 K/UL (4.8-10.8) Red Blood Count 4.29 M/UL (4.70-6.10) Hemoglobin 13.6 G/DL (14.2-18.0) Hematocrit 40.8 % (42.0-52.0) Mean Corpuscular Volume 95 FL (80-99) Mean Corpuscular Hemoglobin 31.6 PG (27.0-31.0) Mean Corpuscular Hemoglobin Concent 33.3 G/DL (32.0-36.0) Red Cell Distribution Width 15.0 % (11.6-14.8) Platelet Count 329 K/UL (150-450) Mean Platelet Volume 4.9 FL (6.5-10.1) Neutrophils (%) (Auto) 48.7 % (45.0-75.0) Lymphocytes (%) (Auto) 37.7 % (20.0-45.0) Monocytes (%) (Auto) 8.4 % (1.0-10.0) Eosinophils (%) (Auto) 4.0 % (0.0-3.0) Basophils (%) (Auto) 1.2 % (0.0-2.0) Sodium Level 141 MMOL/L (136-145) Potassium Level 3.8 MMOL/L (3.5-5.1) Chloride Level 104 MMOL/L (98-107) Carbon Dioxide Level 31 MMOL/L (21-32) Anion Gap 6 mmol/L (5-15) Blood Urea Nitrogen 14 mg/dL (7-18) Creatinine 0.7 MG/DL (0.55-1.30) Estimat Glomerular Filtration Rate mL/min (>60) Glucose Level 96 MG/DL (74-106) Uric Acid 3.4 MG/DL (2.6-7.2) Calcium Level 9.0 MG/DL (8.5-10.1) Phosphorus Level 3.3 MG/DL (2.5-4.9) Magnesium Level 1.7 MG/DL (1.8-2.4) Total Bilirubin 0.4 MG/DL (0.2-1.0) Aspartate Amino Transf (AST/SGOT) 19 U/L (15-37) Alanine Aminotransferase (ALT/SGPT) 22 U/L (12-78) Alkaline Phosphatase 68 U/L (46-116) Total Protein 6.7 G/DL (6.4-8.2) Albumin 2.8 G/DL (3.4-5.0) Globulin 3.9 g/dL Albumin/Globulin Ratio 0.7 (1.0-2.7) Height (Feet): 5 Height (Inches): 5.00 Weight (Pounds): 142 Objective General Appearance: no acute distress HEENT: mucous membranes moist Respiratory/Chest: lungs clear, 2l nc Cardiovascular: normal rate Abdomen: soft, non tender Extremities: no edema Neurologic/Psychiatric: alert, responsive Hal Smith MD Mar 03, 2019 15:02
--- NOTE | 2019-03-03 15:17 | NUR ---
Social Service Note Patient accepted by Radha at [facility], [address] [facility] [address], . SW discussed with patient who is in agreement with dc plan. Patient will discharge with w/c, FWW, and medications. Check list provided to primary nurse. Clothes in patient's room. 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 Medications filled by [facility].
--- NOTE | 2019-03-03 15:40 | Surgery Progress Note ---
Surgery Progress Note Subjective Additional Comments no acute events stable comfortable Objective Last 24 Hour Vital Signs Date Time Temp Pulse Resp B/P (MAP) Pulse Ox O2 Delivery O2 Flow Rate FiO2 03/03/19 12:00 97.7 70 18 140/66 (90) 100 03/03/19 08:51 Room Air 03/03/19 08:18 70 153/66 03/03/19 08:00 97.7 70 18 153/66 (95) 100 03/03/19 04:00 97.7 57 18 159/66 (97) 100 03/03/19 00:00 97.8 81 20 157/70 (99) 99 03/02/19 21:36 83 123/71 03/02/19 21:00 Room Air 03/02/19 21:00 98.2 83 20 123/71 (88) 98 03/02/19 20:00 98.2 83 20 123/71 (88) 98 03/02/19 16:00 97.5 86 18 138/82 (100) 98 I&O Intake and Output 03/02/19 03/03/19 19:00 07:00 Intake Total 1460 ml Output Total 1200 ml Balance 1460 ml -1200 ml Intake Oral 1460 ml Output Urine Total 1200 ml # Voids 8 2 # Bowel Movements 1 Cardiovascular: RSR Respiratory: clear Abdomen: soft, flat, non-tender, present bowel sounds, non-distended Extremities: no edema, no tenderness, no cyanosis Laboratory Tests Test 03/03/19 04:51 White Blood Count 7.5 K/UL (4.8-10.8) Red Blood Count 4.29 M/UL (4.70-6.10) L Hemoglobin 13.6 G/DL (14.2-18.0) L Hematocrit 40.8 % (42.0-52.0) L Mean Corpuscular Volume 95 FL (80-99) Mean Corpuscular Hemoglobin 31.6 PG (27.0-31.0) H Mean Corpuscular Hemoglobin Concent 33.3 G/DL (32.0-36.0) Red Cell Distribution Width 15.0 % (11.6-14.8) H Platelet Count 329 K/UL (150-450) Mean Platelet Volume 4.9 FL (6.5-10.1) L Neutrophils (%) (Auto) 48.7 % (45.0-75.0) Lymphocytes (%) (Auto) 37.7 % (20.0-45.0) Monocytes (%) (Auto) 8.4 % (1.0-10.0) Eosinophils (%) (Auto) 4.0 % (0.0-3.0) H Basophils (%) (Auto) 1.2 % (0.0-2.0) Sodium Level 141 MMOL/L (136-145) Potassium Level 3.8 MMOL/L (3.5-5.1) Chloride Level 104 MMOL/L (98-107) Carbon Dioxide Level 31 MMOL/L (21-32) Anion Gap 6 mmol/L (5-15) Blood Urea Nitrogen 14 mg/dL (7-18) Creatinine 0.7 MG/DL (0.55-1.30) Estimat Glomerular Filtration Rate mL/min (>60) Glucose Level 96 MG/DL (74-106) Uric Acid 3.4 MG/DL (2.6-7.2) Calcium Level 9.0 MG/DL (8.5-10.1) Phosphorus Level 3.3 MG/DL (2.5-4.9) Magnesium Level 1.7 MG/DL (1.8-2.4) L Total Bilirubin 0.4 MG/DL (0.2-1.0) Aspartate Amino Transf (AST/SGOT) 19 U/L (15-37) Alanine Aminotransferase (ALT/SGPT) 22 U/L (12-78) Alkaline Phosphatase 68 U/L (46-116) Total Protein 6.7 G/DL (6.4-8.2) Albumin 2.8 G/DL (3.4-5.0) L Globulin 3.9 g/dL Albumin/Globulin Ratio 0.7 (1.0-2.7) L Plan Problems: (1) GIB (gastrointestinal bleeding) Assessment & Plan: 69-year-old male with acute gastrointestinal hemorrhage secondary to large duodenal ulcer. Patient had endoscopy with hemostasis just now identified a large ulcer with potential to rebleed. Need to control patient's hypertension and allow for even permissive hypotension if necessary h/h stable overall doing better labs stable now exam stable Will follow and be available in case patient rebleeds at which time he will require an exploration thank you for allowing me to participate in patient's care d/c planning pending placement will follow with recommendations Adelso Baumann Mar 03, 2019 15:40
[2019-03-03 16:00] VITALS: BP 136/85
[2019-03-03] MEDS ORDERED: OMEPRAZOLE40 M1 ORAL (16:18)
[2019-03-03] MEDS ORDERED: COLACE100 MG ORAL (16:18)
[2019-03-03] MEDS ORDERED: OMEPRAZOLE20 M2 ORAL (16:18)
[2019-03-03] MEDS ORDERED: METOPROLOL SUCC25 MG ORAL (16:18)
--- NOTE | 2019-03-03 16:54 | NUR ---
NURSE NOTES: removed iv from right hand , no bleeding, dc instructions rendered to pt with verbalized understanding, belongings with the patient. walker and wheelchair with the patient.
--- NOTE | 2019-03-03 17:48 | NUR ---
NURSE NOTES: pt picked up by ambulance. pt left in stable condition. pt received flu vaccine on right deltoid no bleeding no swelling, no adverse reaction noted
--- NOTE | 2019-03-05 19:00 | Discharge Summary ---
Discharge Summary Discharge Summary _ DATE OF ADMISSION: 02/08/2019 DATE OF DISCHARGE: 03/03/2019 DISCHARGED BY: Dr. Harvey Arriaga CONSULTANTS: Dr. Prince Kent BRIEF HOSPITAL COURSE: Patient is a 69-year-old male, who presented to ED for complaints of generalized weakness. History was limited. Patient was confused. He was at a bus stop and friend called 911. On evaluation at the ED, patient had weakness and tachycardia. He appeared dehydrated. Blood work showed DKA. He had severe lactic acidosis. No evidence of obvious infection. He was given IV resuscitation. He was started on insulin drip. While at the ED, he had melanotic stools. Repeat CBC showed drop in hemoglobin. Patient also has GI bleed. He was given Protonix. Packed red blood cells was ordered. CT imaging showed thickening of the sigmoid colon as well as rectum. He was admitted to ICU for acute GI bleed and anemia. He was given Protonix and Sandostatin drip. He was given fluid hydration. On 02/08/2019, he underwent upper endoscopy. Patient had a large ulcer in the duodenal bulb. Attempts to stop the bleeding was unsuccessful. Procedure was then aborted. He remained intubated. Blood level was trended every 6 hours. NG tube was inserted. He was continued on Protonix drip. He received total 4 units packed RBC. He was observed for potential of rebleed at which time, he will require an exploration. Patient was given Zosyn. He had severe onychomycosis and tinea pedis. He was given clotrimazole cream. [employer] performed toenail debridement. Anion gap closed. No need for insulin drip. He had tachycardia . There was no evidence of atrial fibrillation. Echocardiogram showed EF 60%. He was eventually extubated on 02/10/2019. He was started on clear liquid diet. He was continued on proton pump inhibitors. H&H was stable. Diet was advanced to full liquid. He was continued on IV hydration. He was given thiamine. Electrolytes were repleted. EGD biopsy showed H. pylori. He was given amoxicillin and clarithromycin. Question is a question that it is not okay Blood glucose was monitored. He did not require basal insulin. He was given NovoLog sliding scale. Glucose eventually normalized. He was taken off insulin coverage and glucose monitoring. He was given Lopressor 25 mg and hydralazine for blood pressure control. H&H was stable. There was no rebleed. Diet was advanced and was tolerating diet. Patient had lengthy stay due to placement. He was eventually discharged to a recuperative care. FINAL DIAGNOSES: GI bleed due to large bleeding duodenal ulcer Anemia due to underlying GI bleed Thrombocytosis and leukocytosis with sepsis/SIRS DKA with uncontrolled DM Lactic acidosis Acute renal failure Onychomycoses status post debridement of toenails Tinea pedis Elevated transaminase level due to EtOH use Acute respiratory failure, status post extubation Homelessness Esophageal varices Dehydration Hypertension Sinus tachycardia, resolved DISPOSITION: The treating physician assessed that the patient is medically stable for discharge to an outstretched disposition. Patient was discharged to recuperative care. DISCHARGE MEDICATIONS: Refer to Discharge Medication List. DISCHARGE INSTRUCTIONS: Follow-up in a week. I have been assigned to complete a discharge summary on this account, I was not involved with the patient's management.--SELVIN Webster Jacqueline Robles NP Mar 05, 2019 19:00
== END 2019-03-03 17:49 | disposition home or self-care (01) | DRG 853 ==
LOC: EDBD 23:03 → EMR 23:20 → ICU 02-08 00:49 → EDBEDREQ 02-08 05:33 → 2W 02-11 12:47 → 2E 02-14 17:52 → 4E 02-14 18:12
PROC: 5A1945Z Respiratory Ventilation, 24-96 Consecutive Hours (ICD-10-PCS; principal; 2019-02-08 12:28)
PROC: 0DB78ZX Excision of Stomach, Pylorus, Via Natural or Artificial Opening Endoscopic, Diagnostic (ICD-10-PCS; principal; 2019-02-08 12:28)
PROC: 0BH17EZ Insertion of Endotracheal Airway into Trachea, Via Natural or Artificial Opening (ICD-10-PCS; principal; 2019-02-08 12:28)
PROC: 0W3P4ZZ Control Bleeding in Gastrointestinal Tract, Percutaneous Endoscopic Approach (ICD-10-PCS; principal; 2019-02-08 12:28)
PROC: 0HBRXZZ Excision of Toe Nail, External Approach (ICD-10-PCS; 2019-02-09)
DX: A41.9 Sepsis, unspecified organism (principal); J96.00 Acute respiratory failure, unspecified whether with hypoxia or hypercapnia; E11.10 Type 2 diabetes mellitus with ketoacidosis without coma; K26.4 Chronic or unspecified duodenal ulcer with hemorrhage; N17.9 Acute kidney failure, unspecified; I85.00 Esophageal varices without bleeding; D50.0 Iron deficiency anemia secondary to blood loss (chronic); I87.8 Other specified disorders of veins; D47.3 Essential (hemorrhagic) thrombocythemia; B35.1 Tinea unguium; B35.3 Tinea pedis; B96.81 Helicobacter pylori [H. pylori] as the cause of diseases classified elsewhere; E11.65 Type 2 diabetes mellitus with hyperglycemia; E11.40 Type 2 diabetes mellitus with diabetic neuropathy, unspecified; E86.0 Dehydration; E86.1 Hypovolemia; Z72.89 Other problems related to lifestyle; Z59.0 Homelessness; R00.0 Tachycardia, unspecified
CPT/HCPCS: 36415; 36600; 70450; 71045; 74176; 80048; 80053; 80061; 80076; 81003; 82009; 82150; 82248; 82550; 82553; 82607; 82728; 82746; 82803; 82962; 82977; 83036; 83540; 83550; 83605; 83690; 83735; 83880; 84100; 84439; 84443; 84484; 84550; 85007; 85025; 85610; 85651; 85730; 86140; 86850; 86900; 86901; 86920; 87040; 87070; 87081; 87205; 90689; 93005; 93306; 93970; 94002; 94003; 94150; 94664; 96365; 96366; 96367; 96368; 96375; 99291; J0171; J1815; J8499

== ENCOUNTER 2019-07-28 19:39 | Inpatient (IN) | payer MEDICAID ==
[~2019-07-28] VITALS: Ht 167.6 cm; Wt 42.2 kg
[~2019-07-28 19:39] MED LIST: COLACE100 MG ORAL; METOPROLOL SUCC25 MG ORAL; NKM; OMEPRAZOLE20 M2 ORAL; OMEPRAZOLE40 M1 ORAL
[2019-07-28 19:45] VITALS: BP 148/90
--- NOTE | 2019-07-28 19:45 | NUR ---
ED Nurse Note: Pt brought in by ambulance for C/O generalized weakness. Per EMS, pt was found outside of a liquor store. denies fall.
[2019-07-28] MEDS ORDERED: cefTRIAXone 1 GM in NS 55 ML IVPB ONE (21:00)
[2019-07-28] MEDS ORDERED: Vancomycin 1 GM in NS 275 ML IVPB ONE (21:15)
[2019-07-28] MEDS ORDERED: Piperacillin/Tazobactam 3.375 GM in NS 110 ML IVPB ONE (21:15)
--- NOTE | 2019-07-28 21:20 | NUR ---
ED Nurse Note: blood and urine sample sent to lab
[2019-07-28 21:27] LABS: HEMATOCRIT 43.5 % (42.0-52.0); HEMOGLOBIN 14.1 G/DL (14.2-18.0); MEAN CORPUSCULAR VOLUME 100 FL (80-99); PLATELET COUNT 393 K/UL (150-450); RED BLOOD COUNT 4.37 M/UL (4.70-6.10); RED CELL DISTRIBUTION WIDTH 13.7 % (11.6-14.8); WHITE BLOOD COUNT 14.7 K/UL (4.8-10.8)
--- NOTE | 2019-07-28 21:28 | NUR ---
ED Nurse Note: x ray at bedside.
[2019-07-28 21:30] LABS: APPEARANCE,URINE CLEAR; BILIRUBIN, URINE NEGATIVE (NEGATIVE); GLUCOSE, URINE (UA) NEGATIVE (NEGATIVE); KETONES,URINE 1+ (NEGATIVE); LEUKOCYTE ESTERASE ,URINE NEGATIVE (NEGATIVE); NITRITE,URINE NEGATIVE (NEGATIVE); PH,URINE 5 (4.5-8.0); PROTEIN,URINE 2+ (NEGATIVE); UROBILINOGEN,URINE 1 MG/DL (0.0-1.0)
[2019-07-28 21:30] LABS: LYMPHOCYTES % (AUTO) 8.6 % (20.0-45.0); MONOCYTES % (AUTO) 4.7 % (1.0-10.0); NEUTROPHILS % (AUTO) 85.8 % (45.0-75.0)
[2019-07-28 21:31] LABS: BASOPHILS % (AUTO) 0.7 % (0.0-2.0); EOSINOPHILS % (AUTO) 0.3 % (0.0-3.0)
--- NOTE | 2019-07-28 21:31 | NUR ---
ED Nurse Note: ERMD aware rocephin was given and states to continues to administer rocephin and will cancel the other antibiotic ( vanco)
[2019-07-28 21:32] LABS: COLOR,URINE YELLOW
--- NOTE | 2019-07-28 21:34 | NUR ---
Note lacie in EDM - 07/28/19 at 2137 by JORGE ELOPEMENT: pt stated she wanted to leave and started walking outside the door. Unable to tell pt to come back. ALEXEY aware.
[2019-07-28 21:52] VITALS: BP_SYST 140; BP_SYST 153; BP_DIAS 74; BP_DIAS 88
[2019-07-28 21:52] LABS: ANION GAP 8 mmol/L (5-15); BLOOD UREA NITROGEN 14 mg/dL (7-18); CALCIUM 9.1 MG/DL (8.5-10.1); CARBON DIOXIDE 29 MMOL/L (21-32); CHLORIDE 102 MMOL/L (98-107); CREATININE 0.6 MG/DL (0.55-1.30); POTASSIUM 4.1 MMOL/L (3.5-5.1); SODIUM 139 MMOL/L (136-145)
[2019-07-28 21:56] LABS: ALANINE AMINOTRANSFERASE 21 U/L (12-78); ALBUMIN 2.7 G/DL (3.4-5.0); ALBUMIN/GLOBULIN RATIO 0.5 (1.0-2.7); ALKALINE PHOSPHATASE 61 U/L (46-116); ASPARTATE AMINO TRANSFERASE 16 U/L (15-37); BILIRUBIN,TOTAL 0.4 MG/DL (0.2-1.0)
--- NOTE | 2019-07-28 22:18 | Diagnostic Imaging Report ---
EXAM: XR Left Foot Complete, 3 or More Views CLINICAL HISTORY: PAIN TECHNIQUE: Frontal, lateral and oblique views of the left foot. COMPARISON: No relevant prior studies available. FINDINGS: Bones/joints: There is mild deformity to the distal phalanx of the great toe of uncertain significance. No obvious acute fracture. No dislocation. Soft tissues: Soft tissue deficits around the first and second toe are present with mild associated soft tissue swelling. No radiopaque foreign body identified. IMPRESSION: Probable traumatic laceration to the first and second digits of the left foot versus tissue loss from poor circulation. Correlate clinically. No definite acute osseous abnormality shown.
--- NOTE | 2019-07-28 22:30 | NUR ---
ED Nurse Note: pt in bed resting with eyes closed. no acute distress is noted.
[2019-07-28] MEDS ORDERED: LORazepam Inj 2mg/ml 1ml IV ONE (23:00)
[2019-07-28] MEDS ORDERED: LORazepam Inj 2mg/ml 1ml ONE (23:01)
--- NOTE | 2019-07-28 23:45 | Emergency Room Report ---
History of Present Illness General Chief Complaint: Generalized Weakness Source: Patient Present Illness HPI This is a 69-year-old male who is homeless. He said he has no past medical history but was admitted in the past for DKA. He presents with chief plaint of left foot pain. He said he has pain to his left foot that is been ongoing for months but worse today. He said he cannot bear weight without hurting too much. He called [phone] [employer] [address]. His last alcohol use was over 24 hours ago. He complained of pain to the left foot. Worse with walking. Worse with bearing weight. Better with rest. Denies any trauma. He said he has been to the clinic several times and get injection for it. Denies any other complaint. No drainage. Allergies: Coded Allergies: No Known Allergies (Unverified , 02/07/19) Patient History Past Medical History: see triage record, old chart reviewed Past Surgical History: other Pertinent Family History: none Social History: Reports: alcohol use Immunizations: other Reviewed Nursing Documentation: PMH: Agreed; PSxH: Agreed Nursing Documentation-PMH Past Medical History: No Stated History Review of Systems Eye: Denies: eye pain, blurred vision ENT: Denies: ear pain, nose congestion, throat swelling Respiratory: Denies: cough, shortness of breath Cardiovascular: Denies: chest pain, palpitations Gastrointestinal: Denies: abdominal pain, diarrhea, nausea, vomiting Musculoskeletal: Reports: joint pain, muscle pain; Denies: back pain Skin: Denies: rash Neurological: Denies: headache, numbness Endocrine: Denies: increased thirst, increased urine Hematologic/Lymphatic: Denies: easy bruising All Other Systems: negative except mentioned in HPI Physical Exam Vital Signs Date Time Temp Pulse Resp B/P (MAP) Pulse Ox O2 Delivery O2 Flow Rate FiO2 07/28/19 19:41 98.8 130 28 151/86 (107) 99 Room Air Vitals with tachycardia and hypertension Sp02 EP Interpretation: reviewed, normal General Appearance: no apparent distress, alert, thin Head: normocephalic, atraumatic Eyes: bilateral eye PERRL, bilateral eye EOMI ENT: hearing grossly normal, normal pharynx Neck: full range of motion, supple, no meningismus Respiratory: chest non-tender, lungs clear, normal breath sounds Cardiovascular #1: regular rate, rhythm, no murmur Gastrointestinal: normal bowel sounds, non tender, no mass, no organomegaly, no bruit, non-distended Musculoskeletal: back normal, other - Left foot: He has gangrene of the first and second toes extending to the distal foot. Very decreased pulse. Ankle. No crepitance. Psychiatric: mood/affect normal Medical Decision Making Diagnostic Impression: Primary Impression: Gangrene of toe of left foot ER Course Patient presents with gangrene of his toes foot. He may need amputation. Antibiotics given. X-ray showed no gas. Labs unremarkable. Glucose normal. No evidence of DKA or AKA. He was tachycardic but with fluids went down to 112. I gave him Ativan which helped also. He may have some component of alcohol withdrawal. His insurance approved for admission here. I contacted Dr. Goins for admission. Other X-Ray Diagnostic Results Other X-Ray Diagnostic Results : X-Ray ordered: Foot x-rays, left # of Views/Limited Vs Complete: 3 View Indication: Pain EP Interpretation: Yes Interpretation: no dislocation, no fractures, other - Soft tissue defect to the second and first toes Impression: Other - Soft tissue abnormality Electronically Signed by: Sebastien Flaherty MD Last Vital Signs Date Time Temp Pulse Resp B/P (MAP) Pulse Ox O2 Delivery O2 Flow Rate FiO2 07/28/19 21:52 98.5 148 20 153/74 99 Room Air Status: improved Disposition: ADMITTED INPATIENT Condition: Serious Referrals: NON PHYSICIAN (PCP) Sebastien Flaherty MD Jul 28, 2019 23:45
--- NOTE | 2019-07-28 23:55 | NUR ---
ED Nurse Note: PT brought up to Med/Surg room 402-2 accopanied by 2 RN in stable condition. Report given to RAJI cabral . Belonging list signed off. IV site to left wrist is intact.
--- NOTE | 2019-07-28 23:56 | NUR ---
ED Nurse Note: Report given to RAJI Sy .
[2019-07-29] VITALS (7 sets, daily range): BP systolic 131–172; BP diastolic 65–94
--- NOTE | 2019-07-29 | NUR ---
NURSE NOTES: Pt. received from RAJI Ayala. Pt. AAOx4, on room air, no complaints of pain and no respiratory distress at this time. Belongings list checked and signed, contraband secured. IV site left wrist 18g, asymptomatic, intact, and patent; saline locked. Left foot gangrenous wound, 1st and 2nd phalanges. Pt. had BM, pt. cleaned and changed. Pt. oriented to room, instructed to use call light for assistance. Bed is low and locked, side rails x2 up, bed alarm active, and call light is in reach. Awaiting MD orders. Will continue to monitor.
--- NOTE | 2019-07-29 00:30 | NUR ---
NURSE NOTES: Left foot wound cleaned and dressed with 4x4 and wrapped with kerlix.
--- NOTE | 2019-07-29 07:00 | History and Physical Report ---
DATE OF ADMISSION: 07/28/2019 CHIEF COMPLAINT: Left foot gangrene. HISTORY OF PRESENT ILLNESS: The patient is a 69-year-old male. He has a history of diabetes and GI bleed, was found in a liquor store and brought in by paramedics for left foot gangrene. The patient is a poor historian. He denies any fevers or chills. He was noted to be tachycardic. He had a white count of 15,000. He had clear gangrene of left first, second foot, and forefoot. The patient is now admitted for further evaluation and care. PAST MEDICAL HISTORY: As above. PAST SURGICAL HISTORY: Unknown. CURRENT MEDICATIONS: Unknown. FAMILY HISTORY: Unknown. SOCIAL HISTORY: The patient is a prior drinker, but denies any drugs. REVIEW OF SYSTEMS: Unremarkable. PHYSICAL EXAMINATION: VITAL SIGNS: Temperature 97.8, pulse 109, respirations 18, and blood pressure 172/94. GENERAL: The patient is a thin elderly male, disheveled, but alert, follow simple commands. NECK: Supple. HEART: Regular rate and rhythm. LUNGS: Clear. ABDOMEN: Soft. EXTREMITIES: Without clubbing. There is left foot gangrene of the first and second digit and the forefoot. LABORATORY DATA: Sodium 139, creatinine was . White count 15,000, hemoglobin 14, and platelets of 393. UA was clear. Toxicology screen was negative. ASSESSMENT: This is a 69-year-old male, admitted with complaints of left foot gangrene. He is diabetic and possibly hypertensive, has a history of GI bleed. PLAN: 1. Vascular studies. 2. Podiatry consultation. 3. Insulin coverage. 4. Check an A1c level and a lipid panel. 5. Antiplatelet therapy. Jose Daniel Goins M.D. DR: CADY JOB#: [id number] CC:
--- NOTE | 2019-07-29 07:10 | NUR ---
HAND-OFF: Report given to RAJI Ruvalcaba.
--- NOTE | 2019-07-29 07:16 | NUR ---
NURSE NOTES: Report received from Yossi ALEGRIA. Patient is awake and alert x 4. Patient coming in for gangrene on left foot. Left foot noted to have a clean, dry, and in tact dressing. patient reports mild pain, will follow pain protocol. 18 chris IV noted in left wrist, saline lock. In tact and patent. Bed locked, in lowest position, and call light within reach. Will continue to follow plan of care.
[2019-07-29] MEDS: NovoLOG Insulin Flexpen SUBQ SCH ×4 (08:00→20:36)
[2019-07-29] MEDS: Aspirin EC 81mg tab ORAL SCH (08:57)
[2019-07-29] MEDS: Pantoprazole Inj IVP SCH (08:57)
[2019-07-29 08:58] LABS: CHOLESTEROL 104 MG/DL (< 200); HDL CHOLESTEROL 45 MG/DL (40-60); TRIGLYCERIDES 45 MG/DL (30-150)
[2019-07-29] MEDS ORDERED: Vancomycin 750mg/NS 275ml IVPB ONE ×2 (09:00)
--- NOTE | 2019-07-29 19:21 | NUR ---
HAND-OFF: Report given to Hina ALEGRIA.
--- NOTE | 2019-07-29 19:36 | NUR ---
NURSE NOTES: Received patient in bed, awake, alert, oriented x 4, Citizen Of [place] speaking, IV site is clean dry intact. Call light is within reach, bed is lowered, locked and alarm is on, no acute distress noted, will continue to monitor for comfort and safety.
[2019-07-29] MEDS: Vancomycin 500mg/D5W 110ml IVPB SCH ×2 (20:25)
[2019-07-30 03:49] VITALS: BP 138/80
[2019-07-30] MEDS: NovoLOG Insulin Flexpen SUBQ SCH ×4 (05:43→20:56)
--- NOTE | 2019-07-30 07:11 | NUR ---
HAND-OFF: Report given to Jordon ALEGRIA.
--- NOTE | 2019-07-30 07:12 | NUR ---
NURSE NOTES: Report received from Hina ALEGRIA. Patient is awake and alert x 4. Patient coming in for gangrene on left foot. Left foot noted to have a clean, dry, and in tact dressing. Patient does not have any complaints at this time. 18 chris IV noted in left wrist, saline lock. In tact and patent. Bed locked, in lowest position, and call light within reach. Will continue to follow plan of care.
[2019-07-30 08:00] VITALS: BP 175/86
[2019-07-30] MEDS: Aspirin EC 81mg tab ORAL SCH (09:00)
[2019-07-30] MEDS: Pantoprazole Inj IVP SCH (09:01)
[2019-07-30] MEDS: Vancomycin 500mg/D5W 110ml IVPB SCH ×4 (09:09→20:57)
[2019-07-30 10:26] VITALS: BP 136/65
--- NOTE | 2019-07-30 10:58 | Consultation ---
History of Present Illness General Date patient seen: Jul 30, 2019 Time patient seen: 10:55 Chief Complaint: Generalized Weakness Referring physician: Dr. Magaña Reason for Consultation: L foot gangrene Present Illness HPI Pt seen bedside for Gangrene of hallux and second digit. Pt appears resting at bedside. Allergies: Coded Allergies: No Known Allergies (Unverified , 02/07/19) Medication History Scheduled Docusate Sodium* (Colace*), 100 MG ORAL TWICE A DAY, (Reported) Metoprolol Succinate* (Metoprolol Succinate*), 25 MG ORAL DAILY, (Reported) No Known Medications* (NKM - No Known Medications*), 0 ., (Reported) Omeprazole (Omeprazole), 40 MG ORAL DAILY, (Reported) Omeprazole (Omeprazole), 20 MG ORAL DAILY, (Reported) Patient History Healthcare decision maker Resuscitation status Full Code Advanced Directive on File Physical Exam Physical Exam Narrative Focused LLE Exam: Derm: L foot gangrene noted of hallux and second digit. (+) malodor. Gangrene tissue extending dorsal and plantar. Decrease temp differential is noted. Vasc: 0/4 DP/PT pulses. [employer] < 3 seconds. Neuro: SILT diminished. MSK: MS/ROM diminished. Last 24 Hour Vital Signs Date Time Temp Pulse Resp B/P (MAP) Pulse Ox O2 Delivery O2 Flow Rate FiO2 07/30/19 10:26 98.0 88 20 136/65 (88) 100 07/30/19 09:07 175/86 07/30/19 09:01 111 175/86 07/30/19 09:00 Room Air 07/30/19 08:00 98.0 111 20 175/86 (115) 100 07/30/19 03:49 98.4 92 22 138/80 (99) 98 07/29/19 23:30 97.8 85 18 140/65 (90) 98 07/29/19 21:05 Room Air 07/29/19 20:25 103 138/79 07/29/19 20:00 98.1 103 21 131/68 (89) 100 07/29/19 17:58 Room Air 07/29/19 17:49 97.5 88 18 133/66 (88) 98 07/29/19 16:49 161/74 07/29/19 16:00 97.5 90 18 152/74 (100) 98 07/29/19 12:00 97.7 86 18 150/77 (101) 98 Intake and Output 07/29/19 07/30/19 19:00 07:00 Intake Total 1235.000 ml Output Total 800 ml Balance 435.000 ml Intake Oral 960 ml IV Total 275.000 ml Output Urine Total 800 ml # Bowel Movements 2 Height (Feet): 5 Height (Inches): 6.00 Weight (Pounds): 97 Medications Current Medications Medications (Trade) Dose Ordered Sig/Manish Route PRN Reason Start Time Stop Time Status Last Admin Dose Admin Acetaminophen (Tylenol) 650 mg Q4H PRN ORAL Mild Pain/Temp > 100.5 07/29/19 06:30 08/28/19 06:29 07/30/19 09:09 Aspirin (Ecotrin) 81 mg DAILY ORAL 07/29/19 09:00 08/28/19 08:59 07/30/19 09:00 Clonidine HCl (Catapres Tab) 0.1 mg Q4H PRN ORAL For High Blood Pressure 07/29/19 06:30 08/28/19 06:29 07/30/19 09:07 Dextrose (Dextrose 50%) 25 ml Q30M PRN IV Hypoglycemia 07/29/19 06:30 08/28/19 06:29 Dextrose (Dextrose 50%) 50 ml Q30M PRN IV Hypoglycemia 07/29/19 06:30 08/28/19 06:29 Insulin Aspart (NovoLOG) BEFORE MEALS AND HS SUBQ 07/29/19 08:00 08/28/19 07:59 Metoprolol Tartrate (Lopressor) 25 mg Q12HR ORAL 07/29/19 09:00 08/28/19 08:59 07/30/19 09:01 Pantoprazole (Protonix) 40 mg DAILY IVP 07/29/19 09:00 08/28/19 08:59 07/30/19 09:01 Vancomycin HCl (Vanco rx to dose) 1 ea DAILY PRN MISC Per rx protocol 07/29/19 06:30 08/28/19 06:29 Vancomycin HCl 500 mg/Dextrose 110 ml @ 110 mls/hr Q12H IVPB 07/29/19 21:00 08/03/19 20:59 07/30/19 09:09 Assessment/Plan Assessment/Plan: A: L foot gangrene hallux ,second digit DM HTN GI Bleed P: - Pt seen and evaluated. - Lab and chart reviewed. - WBC 14 - Temp 98 - L foot XR reviewed, demonstrates vacular calcific disease. - L foot MRI w/o contrast ordered, R/O OM deep soft tissue infection. - Arterial U/S ordered to LLE, R/O PVD. - Cont IV ABx. - Betadine dressing to LLE. - Cont Tx per specialists. - Pt may require surgical intervention, pending MRI report, medical and vasc clearance. - Podiatry will cont to monitor. Navdeep Justin DPM Jul 30, 2019 10:58
--- NOTE | 2019-07-30 11:08 | NUR ---
NURSE NOTES: Patient seen by Doctor Justin from Podiatry. Doctor Margoth ordered for left foot to be cleansed with Betadine and wrapped in Kerlix. Dressing changed by Jordon ALEGRIA.
[2019-07-30 12:00] VITALS: BP 131/70
--- NOTE | 2019-07-30 13:59 | General Progress Note ---
Assessment/Plan Problem List: (1) GIB (gastrointestinal bleeding) ICD Codes: K92.2 - Gastrointestinal hemorrhage, unspecified SNOMED: 41399270 (2) Gangrene of toe of left foot ICD Codes: I96 - Gangrene, not elsewhere classified SNOMED: 53768869026530419 (3) Anemia ICD Codes: D64.9 - Anemia, unspecified SNOMED: 035824033 Assessment/Plan: iv abx wound care mri vascular studies Subjective Constitutional: Reports: malaise, weakness HEENT: Reports: no symptoms Cardiovascular: Reports: no symptoms Respiratory: Reports: no symptoms Gastrointestinal/Abdominal: Reports: no symptoms Genitourinary: Reports: no symptoms Neurologic/Psychiatric: Reports: no symptoms Endocrine: Reports: no symptoms Hematologic/Lymphatic: Reports: no symptoms All Systems: reviewed and negative except above Subjective no events. no complaints. podiatry noted. Objective Last 24 Hour Vital Signs Date Time Temp Pulse Resp B/P (MAP) Pulse Ox O2 Delivery O2 Flow Rate FiO2 07/30/19 12:00 98.0 87 18 131/70 (90) 98 07/30/19 10:26 98.0 88 20 136/65 (88) 100 07/30/19 09:07 175/86 07/30/19 09:01 111 175/86 07/30/19 09:00 Room Air 07/30/19 08:00 98.0 111 20 175/86 (115) 100 07/30/19 03:49 98.4 92 22 138/80 (99) 98 07/29/19 23:30 97.8 85 18 140/65 (90) 98 07/29/19 21:05 Room Air 07/29/19 20:25 103 138/79 07/29/19 20:00 98.1 103 21 131/68 (89) 100 07/29/19 17:58 Room Air 07/29/19 17:49 97.5 88 18 133/66 (88) 98 07/29/19 16:49 161/74 07/29/19 16:00 97.5 90 18 152/74 (100) 98 Intake and Output 07/29/19 07/30/19 19:00 07:00 Intake Total 1235.000 ml Output Total 800 ml Balance 435.000 ml Intake Oral 960 ml IV Total 275.000 ml Output Urine Total 800 ml # Bowel Movements 2 Height (Feet): 5 Height (Inches): 6.00 Weight (Pounds): 97 General Appearance: WD/WN Neck: supple Cardiovascular: regular rhythm Respiratory/Chest: lungs clear Abdomen: soft Edema: no edema noted Arm (L), no edema noted Arm (R), no edema noted Leg (L), no edema noted Leg (R), no edema noted Pedal (L), no edema noted Pedal (R), no edema noted Generalized Jose Daniel Goins MD Jul 30, 2019 13:59
[2019-07-30 16:00] VITALS: BP 144/75
--- NOTE | 2019-07-30 19:09 | NUR ---
HAND-OFF: Report given to Hina ALEGRIA.
--- NOTE | 2019-07-30 19:30 | NUR ---
NURSE NOTES: Received patient in bed, asleep, able to make his needs known, no acute distress noted, IV site is clean dry and intact. Bed is lowered, locked, alarm is on, call light is within reach, will continue to monitor for comfort and safety.
[2019-07-30 20:00] VITALS: BP 139/78
[2019-07-30] MEDS: Vancomycin 1 GM in NS 275 ML IVPB SCH (22:11)
[2019-07-31] VITALS: BP 137/86
[2019-07-31 04:22] VITALS: BP 148/78
[2019-07-31] MEDS: Vancomycin 1 GM in NS 275 ML IVPB SCH ×2 (04:50→14:53)
[2019-07-31] MEDS: NovoLOG Insulin Flexpen SUBQ SCH ×4 (05:13→20:53)
--- NOTE | 2019-07-31 07:18 | NUR ---
HAND-OFF: Report given to Ese ALEGRIA.
--- NOTE | 2019-07-31 07:37 | NUR ---
NURSE NOTES: Received patient in bed, [place]ian speaking only. Patient is awake, able to make his needs known, no complaint of pain or discomfort, right hand IV site in place, saline locked. Bed is low at the lowest position possible, locked, alarm is on, call light is within reach, will continue to monitor patient and follow up with the plan of care.
[2019-07-31 08:00] VITALS: BP 173/86
[2019-07-31] MEDS: Aspirin EC 81mg tab ORAL SCH (09:08)
[2019-07-31] MEDS: Pantoprazole Inj IVP SCH (09:09)
--- NOTE | 2019-07-31 11:51 | NUR ---
RD ASSESSMENT & RECOMMENDATIONS SEE CARE ACTIVITY FOR COMPLETE ASSESSMENT DAILY ESTIMATED NEEDS: Needs based on DM, wound, underweight/ 44kg 30-35 kcals/kg 7113-9985 total kcals 1.25-1.5 g protein/kg 55-66 g total protein 25-30 mL/kg 2559-0275 total fluid mLs NUTRITION DIAGNOSIS: * Increased kcal and pro needs related to underweight status as evidenced by BMI underweight per guidelines, generalized moderate wasting, pt @71% [place] Body Weight. CURRENT DIET:CCHO MED PO DIET RECOMMENDATIONS: LOW NA, CCHO MED, BLAND/ texture as tolerated ADDITIONAL RECOMMENDATIONS: * OBTAIN A STANDING WEIGHT SCALE FOR ACCURACY 124# last adm (Feb 2019) vs 97# now * Wound care: add MVI x 1, Vit C 250mg QD, Jonathon 1pkt BID * Add Glucerna 1 tetra tacos BID in b/w meals . . . .
[2019-07-31 12:00] VITALS: BP 137/63
--- NOTE | 2019-07-31 13:28 | NUR ---
Social Work This SW received a consult due to homelessness. This SW met with patient who appears unkept, disheveled and appears to to be showing poor self care. Patient has a black left foot, due to Gangrene. Patient speaks mostly Azeri, while RN (Destiny) provided Azeri interpretation. Patient has a walker at bedside, while patient, along with nursing reports patient is non-ambulatory at this time. Pending recommendations from the Medical team regarding gangrene. P.T to evaluate and treat, as patient is able. It appears patient will require SNF upon discharge due to needing more care, not safe to care for himself at this time. Patient states he has two brothers, living in [place], but does not have their contact information, nor has been in contact with them (patient is his own decision maker and remains alert/oriented x3). Patient currently in agreement with SNF placement, as needed.
--- NOTE | 2019-07-31 14:08 | NUR ---
MRI LEFT FOOT COMPLETED.
--- NOTE | 2019-07-31 15:06 | NUR ---
CASE MANAGEMENT:INITIAL REVIEW 69 YR OLD MALE JAREK ON 07/28/[address] CC;GENERALIZED WEAKNESS SI;TOE GANGRENE OF LEFT FOOT 99.0 148 28 151/86 98% ON RA WBC 14.7 UA+ PROTEIN, KETONES, UROBILI, RBC, BLOOD FOOT X-RAY - Probable traumatic laceration to the first and second digits of the left foot versus tissue loss from poor circulation. Correlate clinically. No definite acute osseous abnormality shown. IS;ROCEPHIN IV X1 ZOSYN IV X1 VANCOMYCIN IV X1 IVF NS BOLUS X1 ATIVAN IV X1 ADMITTED TO MED SURG MED SURG STATUS CASE MANAGEMENT:REVIEW 07/30/2019 SI;TOE GANGRENE OF LEFT FOOT. GI BLEED. 98.4 111 20 175/86 98% ON RA LABS - NONE IS;VANCOMYCIN IV Q8 HRS ASA PO QD PROTONIX IV QD MED SURG STATUS CASE MANAGEMENT:REVIEW 07/31/2019 SI;TOE GANGRENE OF LEFT FOOT 98.9 105 21 173/86 96% ON RA LABS-NONE IS;VANCOMYCIN IV Q8 HRS ASA PO QD PROTONIX IV QD MED SURG STATUS PLAN;WOUND CARE VASCULAR STUDIES IV ABX DCP; HOMELESS
[2019-07-31 16:00] VITALS: BP 141/63
--- NOTE | 2019-07-31 16:41 | Diagnostic Imaging Report ---
Indication: Cellulitis of the second toe left foot. Gangrene. Technique: Left foot imaging utilizing multiplanar T1 fast spin-echo, proton and T2 fast spin-echo with fat saturation, and STIR. Comparison: None Findings: At the tip of the first distal phalange there is a focus of low T1/low T2 signal. This is consistent with desiccated bone i.e. devitalized bone or dry gangrene. Similar signal noted within the second distal and middle phalange. The second proximal phalange exhibits T1 hypointense and T2 hyperintense signal indicative of a wet gangrene or acute osteomyelitis. This digit also notable for small foci of rounded low signal intensity soft tissue air. IMPRESSION: Acute osteomyelitis involving the second proximal phalange with adjacent soft tissue air. Dry gangrene or devitalized bone involving the second middle and distal phalange as well as the tip of the first distal phalange.
--- NOTE | 2019-07-31 19:30 | NUR ---
HAND-OFF: Report given to RAJI Slameron.
--- NOTE | 2019-07-31 19:30 | NUR ---
NURSE NOTES: RECEIVED PATIENT FROM RAJI CHRISTY. PATIENT IS AWAKE, AAOX4, ON ROOM AIR, NO ACUTE DISTRESS NOTED. PATIENT DENIES PAIN AT THE MOMENT. IV ON LEFT FA INTACT AND PATENT. LEFT FOOT DRESSING INTACT. BED IS LOCKED AND LOW, BED ALARMS ACTIVE, SIDE RAILS X2 AND CALL LIGHT IS WITHIN REACH. WILL CONTINUE TO MONITOR.
[2019-07-31 20:00] VITALS: BP 150/76
[2019-08-01] VITALS: BP 158/78
[2019-08-01] MEDS: Vancomycin 1.25gm/NS Premix 275 ML IVPB SCH ×4 (00:34→23:31)
[2019-08-01 04:00] VITALS: BP 155/79
--- NOTE | 2019-08-01 05:26 | NUR ---
NURSE NOTES: RECEIVED PATIENT FROM RAJI FROST. PATIENT IS AWAKE, AAOX4, ON ROOM AIR, NO ACUTE DISTRESS NOTED. PATIENT DENIES PAIN AT THE MOMENT. IV ON LEFT FA INTACT AND PATENT. LEFT FOOT OPEN TO AIR. BED IS LOCKED AND LOW, BED ALARMS ACTIVE, SIDE RAILS X2 AND CALL LIGHT IS WITHIN REACH. WILL CONTINUE TO MONITOR. Addendum: 08/02/19 at 0527 by Estella Salmeron RN WRONG TIME STAMP.
[2019-08-01] MEDS: NovoLOG Insulin Flexpen SUBQ SCH ×4 (06:30→21:00)
--- NOTE | 2019-08-01 07:43 | NUR ---
HAND-OFF: Report given to RAJI FROST.
[2019-08-01 08:00] VITALS: BP 150/77
[2019-08-01] MEDS: Pantoprazole Inj IVP SCH (08:39)
[2019-08-01] MEDS: Aspirin EC 81mg tab ORAL SCH (08:39)
--- NOTE | 2019-08-01 10:21 | Diagnostic Imaging Report ---
Indication: Gangrene of the left foot, anemia, weakness Technique: Grayscale and duplex images of the bilateral lower extremity arteries Comparison: none Findings: There is extensive hard plaque bilaterally. The right common femoral artery is occluded. The profunda femoris artery is patent. The superficial femoral artery is occluded. There is reconstitution of the proximal popliteal artery by collaterals. Popliteal artery waveforms are monophasic with severely dampened systolic peaks and high diastolic flow. The anterior tibial artery is patent, demonstrates monophasic highly dampened flow. The posterior tibial artery is occluded proximally, reconstitutes distally with nearly flat waveforms. The dorsalis pedis artery is patent with nearly flat waveforms. The peroneal artery is patent with nearly flat waveforms. On the left, common femoral artery is patent, waveform is monophasic with high diastolic flow indicating upstream stenosis or occlusion. There is occlusion of the origin of the superficial femoral artery. The profunda femoris artery remains patent. There is reconstitution of the proximal popliteal artery. This demonstrates nearly flat waveforms with very slow flow. The anterior tibial artery is occluded. The posterior tibial and peroneal arteries are patent with nearly flat waveforms. Impression: Extensive bilateral multilevel occlusive disease, as detailed above. Severely dampened distal waveforms indicate critical ischemia bilaterally
--- NOTE | 2019-08-01 10:47 | NUR ---
*-* INSURANCE *-* ALL CLINICALS AND REVIEWS HAVE BEEN FAXED TO: DELORES PEREZ: MERA REF# [id number] P: [phone] F: [phone] [employer] Susan MAHMOOD P: [phone]
[2019-08-01 12:00] VITALS: BP 155/70
--- NOTE | 2019-08-01 14:19 | NUR ---
CASE MANAGEMENT:REVIEW SI;GANGRENE OF TOE OF LEFT FOOT. ANEMIA. GI BLEED. 98.0 110 20 169/77 96% ON RA IS;VANCOMYCIN IV Q8 HRS ASA PO QD PROTONIX IV QD MED SURG STATUS PLAN;IV ABX WOUND CARE DCP;HOMELESS
--- NOTE | 2019-08-01 14:47 | NUR ---
NURSE NOTES: PT TOOK OFF DRESSING FOR LEFT FOOT. RN REDRESSED WOUND, CLEANSED WITH BETADINE AND WRAPPED WITH KERLIX. WILL CONTINUE TO MONITOR.
[2019-08-01] MEDS ORDERED: NS 275ml ONE (15:06)
[2019-08-01 16:00] VITALS: BP 155/82
--- NOTE | 2019-08-01 18:32 | NUR ---
NURSE NOTES: PT REPEATEDLY TAKES OFF DRESSING OF LEFT FOOT. PT STATES HE DOESN'T WANT ANYTHING ON THE FOOT DESPITE EDUCATION ON MD ORDERS FOR WOUND DRESSING. WILL CONTINUE TO MONITOR. PER DR GRACIA, PT WILL NEED TO BE TRANSFERRED TO ANOTHER HOSPITAL FOR ANGIOGRAM AND HE HAS COMMUNICATED THIS TO DR SESAY.
--- NOTE | 2019-08-01 19:05 | NUR ---
HAND-OFF: Report given to Chiki GUTIERRES RN.
--- NOTE | 2019-08-01 19:13 | General Progress Note ---
Assessment/Plan Problem List: (1) GIB (gastrointestinal bleeding) ICD Codes: K92.2 - Gastrointestinal hemorrhage, unspecified SNOMED: 11243784 (2) Gangrene of toe of left foot ICD Codes: I96 - Gangrene, not elsewhere classified SNOMED: 90171991429133933 (3) Anemia ICD Codes: D64.9 - Anemia, unspecified SNOMED: 078177216 Status: stable Assessment/Plan: iv abx wound care mri vascular studies noted- vascular consult Subjective ROS Limited/Unobtainable: No Constitutional: Reports: malaise, weakness HEENT: Reports: no symptoms Cardiovascular: Reports: no symptoms Respiratory: Reports: no symptoms Gastrointestinal/Abdominal: Reports: no symptoms Genitourinary: Reports: no symptoms Neurologic/Psychiatric: Reports: no symptoms Endocrine: Reports: no symptoms Hematologic/Lymphatic: Reports: no symptoms Allergies: Coded Allergies: No Known Allergies (Unverified , 07/30/19) All Systems: reviewed and negative except above Subjective no events. no complaints. podiatry noted. extensive pad on us Objective Last 24 Hour Vital Signs Date Time Temp Pulse Resp B/P (MAP) Pulse Ox O2 Delivery O2 Flow Rate FiO2 08/01/19 16:00 97.5 89 20 155/82 (106) 99 08/01/19 12:00 97.5 74 20 155/70 (98) 99 08/01/19 09:00 Room Air 08/01/19 08:39 110 150/77 08/01/19 08:00 98.0 110 20 150/77 (101) 96 08/01/19 04:00 97.2 94 20 155/79 (104) 98 08/01/19 02:09 169/77 08/01/19 00:00 98.1 86 19 158/78 (104) 96 07/31/19 21:00 Room Air 07/31/19 20:54 102 150/76 07/31/19 20:00 98.6 102 20 150/76 (100) 97 Intake and Output 07/31/19 08/01/19 19:00 07:00 Intake Total 240 ml Output Total 750 ml 800 ml Balance -750 ml -560 ml Intake Oral 240 ml Output Urine Total 750 ml 800 ml # Voids 4 Laboratory Tests 07/31/19 21:15: Vancomycin Level Trough 14.7H Height (Feet): 5 Height (Inches): 6.00 Weight (Pounds): 97 General Appearance: WD/WN, alert Neck: supple Cardiovascular: regular rhythm Respiratory/Chest: chest wall non-tender, lungs clear, normal breath sounds, no respiratory distress Abdomen: normal bowel sounds, non tender, soft, no organomegaly Edema: no edema noted Arm (L), no edema noted Arm (R), no edema noted Leg (L), no edema noted Leg (R), no edema noted Pedal (L), no edema noted Pedal (R), no edema noted Generalized Neurologic: no motor/sensory deficits, alert, oriented x 3, responsive Jose Daniel Goins MD Aug 01, 2019 19:13
--- NOTE | 2019-08-01 19:30 | NUR ---
NURSE NOTES: RECEIVED PATIENT FROM RAJI FROST. PATIENT IS AWAKE, AAOX4, ON ROOM AIR, NO ACUTE DISTRESS NOTED. PATIENT DENIES PAIN AT THE MOMENT. IV ON LEFT FA INTACT AND PATENT. LEFT FOOT OPEN TO AIR. BED IS LOCKED AND LOW, BED ALARMS ACTIVE, SIDE RAILS X2 AND CALL LIGHT IS WITHIN REACH. WILL CONTINUE TO MONITOR.
[2019-08-01 20:00] VITALS: BP 151/77
--- NOTE | 2019-08-01 23:45 | Consultation ---
DATE OF CONSULTATION: 07/31/2019 CARDIOLOGY CONSULTATION CONSULTING PHYSICIAN: Prince Ponce M.D. REFERRING PHYSICIAN: Jose Daniel Goins M.D. REASON: Lower extremity gangrene. HISTORY: This is a 69-year-old male. He has a history of diabetes and diabetic angiopathy. He was found down in a liquor store and brought into the emergency room by paramedics where he was noted to have gangrene of his left foot. Imaging studies have been obtained since admission revealing extensive vascular disease and bony destruction of the left foot. I have been asked to assist with cardiovascular care. PAST MEDICAL HISTORY: Type 2 diabetes mellitus, history of GI bleeding, atherosclerosis, hypertension. FAMILY HISTORY: Not known. SOCIAL HISTORY: Notable for alcoholism. No history of substance abuse. Denies smoking. MEDICATIONS PRIOR TO ADMISSION: None. REVIEW OF SYSTEMS: He has a history of known heart disease or irregular heartbeats. PHYSICAL EXAMINATION: VITAL SIGNS: Blood pressure 131/70, heart rate 87, respirations 18, afebrile. LUNGS: Clear. NECK: Jugular venous pressure normal with no bruits. CARDIAC: Regular rhythm and rate. Normal S1, S2 with no murmur, rub, or gallop. EXTREMITIES: With no edema. Gangrenous changes noted first and second digits and forefoot. DIAGNOSTIC AND LABORATORY DATA: EKG with sinus tachycardia. No abnormalities. Echocardiogram with normal ejection fraction and no valvular disease. Total cholesterol of 104, LDL 49. IMPRESSION: 1. Severe peripheral artery disease with gangrene of the distal left foot. 2. Type 2 diabetes mellitus. 3. Hypertension. 4. History of alcohol abuse. 5. No evidence of primary cardiovascular embolic source. PLAN: 1. Anti-platelet therapy. 2. Angiography per vascular evaluation. 3. Antimicrobials. 4. Wound care. 5. Probable need for amputation. 6. Defer antihypertensive therapy for now pending vascular intervention. Prince Ponce M.D. DR: SLY JOB#: [id number] CC:
--- NOTE | 2019-08-01 23:45 | Progress Note ---
DATE: 08/01/2019 CARDIOLOGY PROGRESS NOTE SUBJECTIVE: Vascular noninvasive studies reviewed. Vascular consult pending. PHYSICAL EXAMINATION: VITAL SIGNS: Blood pressure 155/82, pulse 89, respiratory rate 20, afebrile. LUNGS: Clear. CARDIAC: Regular. Normal S1 and S2 with no murmur. ABDOMEN: Soft. EXTREMITIES: No edema. His left foot with dry gangrene in first, second digits and forefoot. IMPRESSION: 1. Severe PAD. 2. Left foot gangrene. 3. Osteomyelitis. 4. Low lipid parameters. 5. Hypertension. 6. Diabetes mellitus type 2 on insulin at this time. PLAN: 1. Defer antihypertensive therapy. 2. Continue anti-platelet therapy. 3. Consider low-dose statin long-term. 4. Await vascular intervention and possible amputation. Prince Ponce M.D. DR: Yelena JOB#: [id number] CC:
[2019-08-02] VITALS (7 sets, daily range): BP systolic 138–159; BP diastolic 66–86
--- NOTE | 2019-08-02 05:55 | General Progress Note ---
Assessment/Plan Problem List: (1) GIB (gastrointestinal bleeding) ICD Codes: K92.2 - Gastrointestinal hemorrhage, unspecified SNOMED: 41908181 (2) Gangrene of toe of left foot ICD Codes: I96 - Gangrene, not elsewhere classified SNOMED: 70916688282682756 (3) Anemia ICD Codes: D64.9 - Anemia, unspecified SNOMED: 266535343 Status: stable Assessment/Plan: iv abx wound care mri vascular eval pending Subjective ROS Limited/Unobtainable: No Constitutional: Reports: malaise, weakness HEENT: Reports: no symptoms Cardiovascular: Reports: no symptoms Respiratory: Reports: no symptoms Gastrointestinal/Abdominal: Reports: no symptoms Genitourinary: Reports: no symptoms Neurologic/Psychiatric: Reports: no symptoms Endocrine: Reports: no symptoms Hematologic/Lymphatic: Reports: no symptoms Allergies: Coded Allergies: No Known Allergies (Unverified , 07/30/19) All Systems: reviewed and negative except above Subjective no events. no complaints. podiatry noted. extensive pad on us MRI left foot positive for osteo Objective Last 24 Hour Vital Signs Date Time Temp Pulse Resp B/P (MAP) Pulse Ox O2 Delivery O2 Flow Rate FiO2 08/02/19 04:00 98.2 97 18 159/86 (110) 97 08/02/19 00:00 98.5 91 18 155/72 (99) 97 08/01/19 21:18 96 151/77 08/01/19 21:00 Room Air 08/01/19 20:00 98.1 96 19 151/77 (101) 98 08/01/19 16:00 97.5 89 20 155/82 (106) 99 08/01/19 12:00 97.5 74 20 155/70 (98) 99 08/01/19 09:00 Room Air 08/01/19 08:39 110 150/77 08/01/19 08:00 98.0 110 20 150/77 (101) 96 Intake and Output 08/01/19 08/02/19 19:00 07:00 Intake Total 1270 ml Output Total 800 ml Balance 470 ml Intake Oral 720 ml IV Total 550 ml Output Urine Total 800 ml Laboratory Tests 08/01/19 22:35: Vancomycin Level Trough 19.8H Height (Feet): 5 Height (Inches): 6.00 Weight (Pounds): 97 Objective General Appearance: WD/WN, alert Neck: supple Cardiovascular: regular rhythm Respiratory/Chest: chest wall non-tender, lungs clear, normal breath sounds, no respiratory distress Abdomen: normal bowel sounds, non tender, soft, no organomegaly Edema: no edema noted Arm (L), no edema noted Arm (R), no edema noted Leg (L), no edema noted Leg (R), no edema noted Pedal (L), no edema noted Pedal (R), no edema noted Generalized Neurologic: no motor/sensory deficits, alert, oriented x 3, responsive Jose Daniel Goins MD Aug 02, 2019 05:55
[2019-08-02] MEDS: NovoLOG Insulin Flexpen SUBQ SCH ×4 (06:30→20:56)
[2019-08-02] MEDS: Vancomycin 1.25gm/NS Premix 275 ML IVPB SCH ×2 (06:41→15:52)
[2019-08-02 07:02] LABS: ANION GAP 6 mmol/L (5-15); BLOOD UREA NITROGEN 12 mg/dL (7-18); CALCIUM 8.9 MG/DL (8.5-10.1); CARBON DIOXIDE 29 MMOL/L (21-32); CHLORIDE 104 MMOL/L (98-107); CREATININE 0.7 MG/DL (0.55-1.30); POTASSIUM 3.8 MMOL/L (3.5-5.1); SODIUM 139 MMOL/L (136-145)
[2019-08-02 07:07] LABS: BASOPHILS % (AUTO) 0.7 % (0.0-2.0); EOSINOPHILS % (AUTO) 1.2 % (0.0-3.0); HEMATOCRIT 35.3 % (42.0-52.0); HEMOGLOBIN 12.5 G/DL (14.2-18.0); LYMPHOCYTES % (AUTO) 21.2 % (20.0-45.0); MEAN CORPUSCULAR VOLUME 94 FL (80-99); MONOCYTES % (AUTO) 7.2 % (1.0-10.0); NEUTROPHILS % (AUTO) 69.7 % (45.0-75.0); PLATELET COUNT 330 K/UL (150-450); RED BLOOD COUNT 3.77 M/UL (4.70-6.10); RED CELL DISTRIBUTION WIDTH 13.1 % (11.6-14.8)
--- NOTE | 2019-08-02 07:32 | NUR ---
HAND-OFF: Report given to RAJI Lewis.
--- NOTE | 2019-08-02 08:04 | NUR ---
NURSE NOTES: patient is awake and alert,respirations unlabored.Left foot kerlix dressing clean and intact.patient ate breakfast.Bed alarm is on,call light within reach.
[2019-08-02] MEDS: Aspirin EC 81mg tab ORAL SCH (08:55)
[2019-08-02] MEDS: Pantoprazole Inj IVP SCH (08:56)
--- NOTE | 2019-08-02 14:12 | NUR ---
RD ASSESSMENT & RECOMMENDATIONS SEE CARE ACTIVITY FOR COMPLETE ASSESSMENT DAILY ESTIMATED NEEDS: Needs based on DM, wound, underweight/ 44kg 30-35 kcals/kg 3870-3044 total kcals 1.25-1.5 g protein/kg 55-66 g total protein 25-30 mL/kg 9779-5760 total fluid mLs NUTRITION DIAGNOSIS: * Increased kcal and pro needs related to underweight status as evidenced by BMI underweight per guidelines, generalized moderate wasting, pt @71% [place] Body Weight. CURRENT DIET:CCHO MED PO DIET RECOMMENDATIONS: LOW NA, CCHO MED/ texture as tolerated ADDITIONAL RECOMMENDATIONS: * OBTAIN A STANDING WEIGHT SCALE FOR ACCURACY -> OR recalibrated bed scale for updated wt * Add Glucerna 1 tetra tacos TID in b/w meals * Wound care: add MVI x 1, Vit C 250mg BID, Jonathon 1pkt BID * Snacks in b/w meals . .
--- NOTE | 2019-08-02 14:44 | NUR ---
CASE MANAGEMENT:REVIEW SI;GI BLEED. TOE GANGRENE OF LEFT FOOT. ANEMIA. 98.9 109 18 159/86 95% ON RA IS;VANCOMYCIN IV Q8 HRS PROTONIX IV QD MED SURG STATUS PLAN;VASCULAR EVAL DCP;HOMELESS
--- NOTE | 2019-08-02 16:56 | NUR ---
CASE MANAGEMENT:TRANSFER NEED NOTE INFORMED BY DR SESAY PATIENT WILL NEED TO TRANSFER TO [facility] WHERE HE IS CAPITATED. CALL MADE TO [employer]. SPOKE WITH MEDIATOR SONIA IN RE TO PATIENT REQUIRING TRANSFER FOR VASCULAR SURGEON. PER SONIA, WILL COMMUNICATE WITH DR JOHN TO ACCEPT PATIENT. PROVIDED DR SESAY'S NUMBER FOR DR TO REPORT. CM REQUESTED ALL CLINICALS BE FAXED. UPON ACCEPTANCE TO [facility], [facility] WILL CONTACT N[facility]SES ST[facility] AT [phone] WITH UPDATES FOR TRANSFER. RAJI BROWN INFORMED OF ANTICIPATED TRANSFER. SONIA AT [facility] INFORMED CM THAT PAYMENT FOR THIS ADMISSION HAS BEEN DENIED [facility] WAS NOT INFORMED OF PATIENTS ADMISSION TO [facility] UNTIL 07/31/2019. P: [phone] F: [phone]
--- NOTE | 2019-08-02 19:25 | NUR ---
NURSE NOTES: Received patient on b ed awake and verbally responsive ethiopian speaking. denies any pain or discomfort. no sob with intact dressing on the left foot. no visible bleeding or drainage. with iv line on the left forearm, saline lock. reiterated to call or ask for assistance. bed locked and in lowest position. call light and light button within easy reach. per previous nurse that the patient might transfer to the hospital for vascular surgery. will continue plan of care.
[2019-08-02] MEDS ORDERED: Metoprolol Tartrate 50mg tab ORAL SCH (21:00)
--- NOTE | 2019-08-02 21:00 | NUR ---
NURSE NOTES: received a phone call form [facility] regarding the transfer.per jazz she will call back for the bed placement and transportation. informed dr. goldsmith regarding the phone call from the hospital and gave an order for transfer. charge nurse made aware. awaiting for call back from [facility].
--- NOTE | 2019-08-02 21:30 | NUR ---
NURSE NOTES: Received a phone call from [facility] with an available room on 5519-bed 1. eta after an hour under prn ambulance. per dr. goldsmith to transfer patient with current hospital medications. charge nurse made aware. packet was prepared by the charge nurse. awaiting for the ambulance.
--- NOTE | 2019-08-02 22:40 | NUR ---
NURSE NOTES: Patient was transferred to [facility] per g[facility]teod[facility] via [facility] ambulance. verbally responsive. bolivian speaking. denies any pain or discomfort. respirations even and unlabored. no sob. all belongings was given to the transporter. gave report to gabbi of [facility] to room 5519-1. transferred with current hospital meds. med recon was done. transfer papers with the cd of imaging was given to the transporter. charge nurse informed.
--- NOTE | 2019-08-03 00:15 | Progress Note ---
DATE: 08/02/2019 CARDIOLOGY PROGRESS NOTE SUBJECTIVE: The patient continues on local wound care with IV antimicrobials. Vascular intervention pending. OBJECTIVE: VITAL SIGNS: Blood pressure 159/86, pulse 97, respirations 18, and afebrile. LUNGS: Clear. CARDIAC: Regular. ABDOMEN: Soft. EXTREMITIES: No edema. Dry gangrenous changes previously described of feet. Echocardiogram with normal ejection fraction. LABORATORY DATA: White count 10, hemoglobin 12.5. Potassium 3.8, BUN 12, creatinine 0.7. IMPRESSION: 1. Peripheral artery disease. 2. Atherosclerosis. 3. Bilateral lower extremity gangrenous changes. 4. Osteomyelitis 5. Alcoholism. 6. Hypertensive heart disease with elevated blood pressure range. PLAN: 1. ____ angiography. 2. Amputation to be considered. 3. Anti-platelet and anti-lipid drugs. 4. Initiate antihypertensive therapy. Prince Ponce M.D. DR: ERICK JOB#: [id number] CC:
--- NOTE | 2019-08-03 09:53 | Discharge Summary ---
Discharge Summary Discharge Summary _ DATE OF ADMISSION: 07/28/2019 DATE OF DISCHARGE: 08/02/2019 DISCHARGED BY: Dr. Goins REASON FOR ADMISSION: 69 years old male, homeless, with past admission for DKA, ETOH abuse, presented with a chief complaint of left foot pain, ongoing for months , but recently was getting progressively worse. Patient reported not able to bear weight without hurting his feet. Pain worse with walking and bearing weight and better with rest. He denied any trauma or injury. Upon evaluation patient was tachycardic with heart rate 130, tachypneic with respiratory rate 28, blood pressure was 151/86. Laboratory work-up revealed leukocytosis WBC 14.7, stable hemoglobin and hematocrit. Stable electrolytes. Urine toxicology screen was negative . Serum alcohol negative. Albumin 2.7. Urinalysis revealed +2 protein , no evidence of urinary tract infection. X-ray of the left foot revealed probable traumatic laceration to the first and second digit of the left foot versus tissue loss from poor circulation. No definite acute osseous abnormality was seen. Patient subsequently admitted to medical surgical floor for further management. CONSULTANTS: joy operator senior cobol developer Dr. Justin [facility] COURSE: Patient admitted to medical surgical floor. Patient started on antiplatelet therapy with aspirin. Arterial duplex bilateral lower extremity revealed extensive bilateral multilevel occlusive disease. Severely dampened distal waveforms, indicating critical ischemia bilaterally. MRI of the left foot revealed acute osteomyelitis involving the second proximal phalanx with adjacent soft tissue air. Patient received IV antibiotics. Director [employer] seen the patient . Wound care provided as per senior cobol developer recommendation . Patient may benefit from surgical intervention as per senior cobol developer. Blood pressure was closely monitored. Antihypertensive therapy was initiated by joy operator with beta-vance. Dose of beta vance was further uptitrated. Additional antihypertensive was on board as needed for blood pressure spikes. GI prophylaxis provided. Hemoglobin A1c 5.9. Blood sugar was closely monitored. Lipid panel was stable. Protein supplements provided as per dietary recommendation , given the high nutritional risk due to diabetes mellitus , wound and being underweight. Patient was subsequently transferred to insurance affiliated facility. FINAL DIAGNOSES: Acute osteomyelitis involving the second proximal phalange (with adjacent soft tissue air) Left foot gangrene hallux, second digit Peripheral arterial disease Diabetes mellitus Hypertensive heart disease History of GI bleeding ETOH abuse DISCHARGE MEDICATIONS: List of medication was sent to accepting facility DISCHARGE INSTRUCTIONS: Patient was transferred to [facility] as per insurance. I have been assigned to dictate discharge summary for this account. I was not involved in the patient's management. Maryana Herring NP Aug 03, 2019 09:53
== END 2019-08-02 22:45 | disposition short-term general hospital (02) | DRG 197 ==
LOC: EDBD 19:39 → EMR 20:10 → 4E 23:00 → EDBEDREQ 23:23 → 4E 07-30 06:05
DX: E11.52 Type 2 diabetes mellitus with diabetic peripheral angiopathy with gangrene (principal); E11.69 Type 2 diabetes mellitus with other specified complication; Z59.0 Homelessness; M86.172 Other acute osteomyelitis, left ankle and foot; I96 Gangrene, not elsewhere classified; I11.9 Hypertensive heart disease without heart failure; I70.90 Unspecified atherosclerosis; F10.20 Alcohol dependence, uncomplicated
CPT/HCPCS: 36415; 80048; 80053; 80061; 80202; 80307; 81003; 82962; 83036; 83605; 85025; 87040; 87081; 93005; 93306; 93925; 93926; 96361; 96374; 96375; 99285; G0480; J1815